=== PATIENT | female | born 1990 | race Caucasian/White ===

== ENCOUNTER 2023-09-20 13:35 | Outpatient (RCR) | payer OTHER, SELFPAY | END 2023-12-29 14:53 | disposition home or self-care (01) | LOC: PT 13:35 | PROVIDERS: PCP Nurse Practitioner Primary Care; Visit Provider Nurse Practitioner Family | DX: M54.16 Radiculopathy, lumbar region (principal) | CPT/HCPCS: 97110; 97112; 97113; 97140; 97162 ==

== ENCOUNTER 2023-09-26 13:08 | Outpatient (OUT) | payer OTHER, SELFPAY ==
--- NOTE | 2023-09-26 14:36 | P.CN_ITS ---
Consult Note: HPI Data of Consult Patient: new to practice Consult date: 09/26/23 Requesting Physician: Chucky Hernandez MD Primary Care Provider: MICHELLE ALVARES APRN-CARSON Consult Narrative Reason for consult: Right lower leg and foot pain Narrative: 33yof who presents for evaluation. Had scoliosis corrective surgery in youth, thoracolumbar fusion in place. Has persistent right lower extremity and foot pain. Lumbar CT shows foraminal stenosis in lower lumbar spine. Has engaged in >6 weeks of provider directed home exercise course, with minimal benefit. Uses gabapentin and lyrica, which has helped keep symptoms at bay. Denies adverse med side effects. cc:: CC: Chucky Hernandez MD Review of Systems ROS Status of ROS 10 or more systems reviewed and unremark able except as noted in history and below Meds Home Medications and Allergies Home Medications Medication Instructions Recorded Confirmed Type benfotiamine 150 mg capsule 150 mg PO DAILY 09/26/23 09/26/23 History bupropion HCl 150 mg tablet,12 hr 150 mg PO DAILY 09/26/23 09/26/23 History sustained-release (Wellbutrin SR) cholecalciferol (vitamin D3) 1,250 50,000 unit PO QWEEK 09/26/23 09/26/23 History mcg (50,000 unit) capsule dextroamphetamine-amphetamine 10 10 mg PO DAILY 09/26/23 09/26/23 History mg tablet (Adderall) dextroamphetamine-amphetamine ER 30 mg PO DAILY 09/26/23 09/26/23 History 30 mg 24hr capsule,extend release (Adderall XR) escitalopram oxalate 20 mg tablet 20 mg PO DAILY 09/26/23 09/26/23 History (Lexapro) gabapentin 600 mg tablet 1,200 mg PO Q8H 09/26/23 09/26/23 History ibuprofen 800 mg tablet 800 mg PO DAILY PRN pain 09/26/23 09/26/23 History mecobalamin (vitamin B12) 1,000 1,000 mcg PO DAILY 09/26/23 09/26/23 History mcg chewable tablet metoprolol tartrate 25 mg tablet 25 mg PO Q12H 09/26/23 09/26/23 History pregabalin 75 mg capsule 75 mg PO Q8H 09/26/23 09/26/23 History Allergies Allergy/AdvReac Type Severity Reaction Status Date / Time No Known Drug Allergies Allergy Verified 09/26/23 14:30 Exam Narrative Exam Narrative: Psych-alert and oriented x 3. Attentive and appropriate, constitutionally normal, displays normal mood and affect per situation. There are no obvious deficits in memory, reasoning, or intellect.? Skin-no obvious rashes, bruising, erythema noted to the patient's area of pain.? Extremities- extremities are warm with minimal edema and palpable pulses. Lumbar-tenderness to palpation noted in the lumbar spine and paraspinal musculature. Pain is not elicited with flexion, extension, and lateral rotation of the lumbar spine. Range of motion is not diminished with these motions. Facet loading maneuvers are negative.? Strength-noted to be unremarkable with the exception of decreased strength rated at 4 out of 5 in right anterior tibialis, posterior tibialis. Sensory-no notable sensory deficits in the bilateral lower extremities to touch or pinprick in all dermatomal distributions with the exception to decreased sensation to the right L5, S1 dermatomal distribution Coordination remains intact.? Gait remains non-antalgic Assessment and Plan Assessment and Plan (1) Lumbar stenosis with neurogenic claudication: (2) Lumbar postlaminectomy syndrome: Plan 33yof who presents for evaluation. Failed conservative measures, as noted. Imaging reviewed, as noted. Given symptoms and imaging, prudent to attempt right L5-S1, S1-2 transforaminal epidural steroid injection under fluoroscopic guidance. She is in agreement. Medications reviewed. Gabapentin and lyrica were refilled. Follow up after procedure.
== END 2023-09-26 13:09 | disposition home or self-care (01) ==
LOC: PM 13:09
PROVIDERS: PCP Nurse Practitioner Primary Care; Visit Provider Anesthesiology
DX: M48.062 Spinal stenosis, lumbar region with neurogenic claudication (principal); M96.1 Postlaminectomy syndrome, not elsewhere classified
CPT/HCPCS: G0463

== ENCOUNTER 2023-10-03 08:46 | Day surgery (SDC) | payer OTHER, SELFPAY ==
--- OUTSIDE RECORDS SUMMARY | 2023-10-03 08:50 | XMS_ITS | CCD ---
Author Name Unknown Address [address] [place] [address] Organization [facility] Care Team Providers Care Business Analyst Intern Name Role Phone BEN DIAZ Attending Unavailable Unavailable Primary Care Provider UnavailAshwini Dotson PA-C Primary Care Provid er Update Needed Unavailable Unavailable Unavailable Unavailable Ashwini Matute Unavailable [phone] MD TERRIE BROWN Referring Unavailabl e MD TERRIE BROWN Admitting Unavailabl e DINA DENNIS Attending Unavailable Juju, Ms. Ashwini Guerrero Primary Care Un available MD TERRIE BROWN Attending Unavailabl e Self, Referral Referring Unavailable Romainfrjenniffer, MsAzael Guerrero Primary Care Un available MD TERRIE BROWN Attending Unavailabl e Juju, Ms. Ashwini Guerrero Primary Care Un available ARIA IZQUIERDO Attending Unavailable ASHWINI MATUTE Referring Unavaila ble FINEFROCK, ASHWINI Lim Primary Care Unavaila ble FINEFROCK, ASWHINI Lim Primary Care Unavaila ble CHITRA BURNETT Attending Unavailable ROMAINFRASHWINI REEVES Primary Care Unavaila ble FINEFRJENNIFFER, ASHWINI Lim Attending Unavaila ble FINEFRASHWINI REEVES Primary Care Unavaila ble CHITRA BURNETT Attending Unavailable MARCO SLADE Referring Unavailable FINEFROCK, ASHWINI L Primary Care Unavaila ble CHITRA BURNETT Referring Unavailable FINEFROCK, ASHWINI L Referring Unavaila ble FINEFROCK, ASHWINI L Primary Care Unavaila ble ARIA IZQUIERDO Attending Unavailable VAZQUEZ ARIA Referring Unavailable JUJU, ASHWINI Lim Primary Care Unavaila ble FINEFROCK, ASHWINI L Primary Care Unavaila ble FINEFROCK, ASHWINI Lim Attending Unavaila ble FINEFRJENNIFFER, ASHWINI Lim Referring Unavaila ble FINEFROCK, ASHWINI L Primary Care Unavaila ble FINEFROCK, ASHWINI L Primary Care Unavaila ble JESSEE HAMILTON Attending Unavailable JESSEE HAMILTON Attending Unavailable JESSEE HAMILTON Referring Unavailable MARCO SLADE Attending Unavailable ASHWINI MATUTE Attending Unavaila ble Finefrock Ashwini QUIROZ Primary Care [facility] TERRIE BROWN Attending Unavailable ASHWINI MATUTE Primary Care Unavai alana NO FAMILY, PHYSICIAN Primary Care Provider SAUL Floers Attending Provider Lorie Townsend Attending Unavailable Lorie Townsend Admitting Unavailable NO FAMILY, PHYSICIAN Primary Care Unavailable Lorie Townsend Unavailable David ROSE, Chucky Landaverde Attending Unavailable Medications Current Medications Medication Drug Class(es) Dates Sig (Normalized) Sig (Original) acetaminophen 325 mg / oxyCODONE hydrochloride 5 mg oral tablet (1 source) Opioid Agonist Start: 12-15-2022 take 1 tablet by mouth twice daily as needed for pain oxyCODONE-acetamin ophen (Percocet) 5-325 mg tablet take 1 tablet by mouth twice a day NEEDED FOR PAIN 0 12/15/2022 Active amphetamine aspartate 2.5 mg / amphetamine sulfate 2.5 mg / dextroamphetamine saccharate 2.5 mg / dextroamphetamine sulfate 2.5 mg oral tablet (20 sources) Central Nervous System Stimulant Start: 07-26-2023 End: 08-25-2023 take 1 tablet by mouth once dextroamphetamine- amphetamine (ADDERALL) 10 mg tablet Indications: Attention deficit hyperactivity disorder (ADHD), unspecified ADHD type Take 1 tablet by mouth every afternoon for 30 days. Do not start before July 26, 2023. 30 tablet 0 07/26/2023 08/25/2023 Active Start: 07-18-2023 End: 05-26-2023 take 1 tablet by mouth once dextroamphetamine-amphetamine (ADDERALL) 10 mg tablet Indications: Attention deficit hyperactivity disorder (ADHD), unspecified ADHD type Take 1 tablet by mouth every afternoon for 30 days. Do not start before July 18, 2023. 30 tablet 0 07/18/2023 05/26/2023 Discontinued Start: 06-25-2023 End: 05-28-2023 take 1 tablet by mouth once dextroamphetamine-amphetamine (ADDERALL) 10 mg tablet Indications: Attention deficit hyperactivity disorder (ADHD), unspecified ADHD type Take 1 tablet by mouth every afternoon for 30 days. Do not start before June 25, 2023. 30 tablet 0 06/25/2023 05/28/2023 Discontinued Start: 06-25-2023 End: 07-25-2023 take 1 tablet by mouth once dextroamphetamine-amphetamine (ADDERALL) 10 mg tablet Indications: Attention deficit hyperactivity disorder (ADHD), unspecified ADHD type Take 1 tablet by mouth every afternoon for 30 days. Do not start before June 25, 2023. 30 tablet 0 06/25/2023 07/25/2023 Active Start: 06-18-2023 End: 05-26-2023 take 1 tablet by mouth once dextroamphetamine-amphetamine (ADDERALL) 10 mg tablet Indications: Attention deficit hyperactivity disorder (ADHD), unspecified ADHD type Take 1 tablet by mouth every afternoon for 30 days. Do not start before June 18, 2023. 30 tablet 0 06/18/2023 05/26/2023 Discontinued Start: 2023 End: 08-17-2023 take 1 tablet by mouth once dextroamphetamine-amphetamine (ADDERALL) 10 mg tablet Indications: Attention deficit hyperactivity disorder (ADHD), unspecified ADHD type Take 1 tablet by mouth every afternoon for 30 days. 30 tablet 0 05/26/2023 06/25/2023 Active Start: 02-17-2023 End: 06-22-2023 take 1 capsule by mouth once daily Adderall XR 30 mg 24 hr capsule Take 1 capsule (30 mg) by mouth once daily. 0 02/17/2023 Active Start: 02-12-2023 amphetamine-de xtroamphetamine (Adderall) 10 mg tablet Start: 09-19-2022 End: 02-10-2023 take 1 capsule by mouth once daily ADDERALL XR 30 mg 24 hr capsule Take 30 mg by mouth once daily. 0 09/19/2022 02/10/2023 Discontinued Comment on above: Take 30 mg by mouth once daily. Take 10 mg by mouth every afternoon. Take 1 capsule by mo uth once daily for 30 days. Take 1 tablet by amrita th every afternoon for 30 days. Take 1 tablet by amrita th every afternoon for 30 days. Do not start before July 18, 2023. Take 1 tablet by amrita th every afternoon for 30 days. Do not start before June 18, 2023. Take 1 tablet by amrita th every afternoon for 30 days. Do not start before June 25, 2023. Take 1 tablet by amrita th every afternoon for 30 days. Do not start before July 26, 2023. aspirin 81 mg chewable tablet (7 sources) Platelet Aggregation Inhibitor, Nonsteroidal Anti-inflammatory Drug take 1 tablet by mouth every twenty-four hours Aspirin 81 MG 1 tablet Orally Once a day Active take 1 capsule by mouth once aleks ly aspirin 325 mg cap Take 1 capsule by mouth once daily. 0 Active Comment on above: Take 1 capsule by [facility] once daily. atomoxetine 100 mg oral capsule (9 sources) Norepinephrine Reuptake Inhibitor Start: 07-23-20 End: 09-27-19 atomoxetine (Strattera) 100 mg capsule Strattera 100 MG Oral Capsule Quantity: 30 Refills: 0 Start : 23-Jul-2013 Active 0 07/23/2013 Active Comment on above: TAKE 1 CAPSULE DAILY IN THE MORNING baclofen 20 mg oral tablet (1 source) gamma-Aminobutyric Acid-ergic Agonist Start: 10-18-19 take 1 tablet by mouth three times daily for muscle spasms baclofen (Lioresal) 20 mg tablet take 1 tablet by mouth three times a day if needed for SPASM(S) 0 10/18/2022 Active Benfotiamine (1 source) Benfotiamine Act josh 24 hr buPROPion hydrochloride 150 mg extended release oral tablet (20 sources) Aminoketone Start: 02-23-20 End: 07-16-20 23 take 1 tablet by mouth once daily buPROPion XL (WELLBUTRIN XL) 150 mg 24 hr tablet Take 1 tablet by mouth once daily. 30 tablet 2 06/16/2023 07/16/2023 Active take 1 tablet by amrita th every twenty-four hours Wellbutrin SR 150 MG 1 tablet in the morning Orally Once a day Active Comment on above: Take 1 tablet by amrita th once daily. take 1 tablet by amrita th once daily cyclobenzaprine hydrochloride 10 mg oral tablet (7 sources) Muscle Relaxant Start: 02-26-2013 cyclobenzaprine (Flexeril) 10 mg tablet Cyclobenzaprine HCl - 10 MG Oral Tablet Quantity: 90 Refills: 0 Start : 26-Feb-2013 Active 0 02/26/2013 Active Start: 02-26-2013 Cyclobenzaprin e HCl - 10 MG Oral Tablet Quantity: 90 Refills: 0 Ordered: 08-May-2013 DO Start : 26-Feb-2013 Active Dodex 1,000 mcg/mL injection (1 source) Start: 03-01-2023 Dodex 1,000 mc g/mL injection inject 1 milliliter ( 1000 MCG ) intramuscularly Every Month 0 03/01/2023 Active escitalopram 20 mg oral tablet (20 sources) Serotonin Reuptake Inhibitor Start: 05-26-2023 End: 11-22-2023 take 1 tablet by mouth once daily escitalopram oxalate (LEXAPRO) 20 mg tablet Take 1 tablet by mouth once daily. 90 tablet 1 05/26/2023 11/22/2023 Active Start: 02-22-2023 End: 05-26-2023 take 1 tablet by mouth once daily escitalopram (Lexapro) 10 mg tablet Take 1 tablet (10 mg) by mouth once daily. 0 02/22/2023 Active Start: 01-11-2023 End: 02-22-2023 escitalopram oxalate (LEXAPR O) 10 mg tablet 0.5 tab daily for 1 week then 1 tab daily 30 tablet 1 01/11/2023 02/22/2023 Discontinued Start: 12-03-2014 End: 09-27-2022 escitalopram oxalate (LEXAPR O) 10 mg tablet TAKE 1 TABLET DAILY 90 tablet 2 09/15/2015 Active Comment on above: Take 1 tablet by amrita th once daily. TAKE 1 TABLET DAILY 0.5 tab daily for 1 week then 1 tab daily gabapentin 600 mg oral tablet (20 sources) Anti-epileptic Agent Start: 01-11-2023 End: 07-16-2023 take 2 tablets by mouth three times daily gabapentin (Neurontin) 600 mg tablet Take 2 tablets (1,200 mg) by mouth 3 times a day. 0 02/21/2023 Active Start: 12-11-2012 gabapentin (NE URONTIN) 800 mg tablet TAKE 1 TABLET THREE TIMES A DAY 270 tablet 2 09/29/2014 Active Start: 12-11-2012 Gabapentin 800 MG Oral Tablet Quantity: 90 Refills: 0 Ordered: 11-Dec-2012 DO Start : 11-Dec-2012 Active [facility] Gabapentin 600 MG 1 tablet Orally Once a day Active Comment on above: TAKE 1 TABLET THREE TIMES A DAY Take 2 tablets by [facility] three times daily for 30 days. Take 2 tablets by [facility] three times a day for 30 days. ibuprofen 800 mg oral tablet (1 source) Nonsteroidal Anti-inflammatory Drug take 1 tablet by mouth every eight hours at mealtime as needed Ibuprofen 800 MG 1 tablet with food or milk as needed Orally every 8 hrs Active 1 ml medroxyPROGESTERone acetate 150 mg/ml injection (7 sources) Progestin Start : 09-21 medroxyPROGESTERone 150 mg/mL injection MedroxyPROGESTERone Acetate 150 MG/ML Intramuscular Suspension Quantity: 1 Refills: 0 Start : 21-Sep-2012 Active 0 09/21/2012 Active Start: 09-21-2012 MedroxyPROGEST ERone Acetate 150 MG/ML Intramuscular Suspension Quantity: 1 Refills: 0 Ordered: 11-Mar-2013 DO Start : 21-Sep-2012 Active methylPREDNISolone (1 source) Corticosteroid Start: 12-27-2022 methylPREDNISolone (Medrol Dospak) 4 mg tablets use as directed FOLLOW DIRECTIONS ON BACK OF FOIL PACK 0 12/27/2022 Active miSOPROStol 0.2 mg oral tablet (4 sources) Prostaglandin E1 Analog Start: 02-25-2023 miSOPROStoL (Cytotec) 200 mcg tablet take 1 tablet 2 days prior to appointment then 1 tablet 8 to 10 h... (REFER TO PRESCRIPTION NOTES). 0 02/25/2023 Active Start: 02-03-2023 End: 02-04-2023 miSOPROStol (CYTOTEC) 200 mc g tablet 1 tablet as directed. Take by mouth 2 days prior to appt, and the second pill 8-10 hours prior to [employer]UR[employer]ER appt for cervical dilation. 2 tablet 0 02/03/2023 02/04/2023 Discontinued Comment on above: 1 tablet as directed . Take by mouth 2 days prior to appt, and the second pill 8-10 hours prior to ASSURANCE OFFICER appt for cervical dilation. 1 tablet as directed for 2 doses. Take by mouth 2 days prior to appt, and the second pill 8-10 hours prior to ASSURANCE OFFICER appt for cervical dilation. perflutren lipid microspheres 1.3 mL in NaCl (PF) 0.9% 10 mL injection (DEFINITY) (20 sources) Start: 3 End: 4 perflutren lipid microspheres 1.3 mL in NaCl (PF) 0.9% 10 mL injection (DEFINITY) pregabalin 50 mg oral capsule (20 sources) Start: 3 End: 3 take 1 capsule by mouth three times daily pregabalin (LYRICA) 50 mg capsule Indications: Juvenile idiopathic scoliosis of thoracolumbar region , Neuropathy Take 1 capsule by mouth three times daily for 90 days. 90 capsule 2 05/30/2023 08/28/2023 Active Start: 11-10-2022 take 1 capsule by mo uth once daily pregabalin (LYRICA) 50 mg capsule Take 1 capsule by mouth once daily. 0 11/10/2022 Active take 1 capsule by mo uth every twelve hours Lyrica 50 MG 1 capsule Orally Twice a day Active Comment on above: Take 1 capsule by mo ut[facility] once daily. Take 1 capsule by mo ut[facility] three times daily for 30 days. Take 1 capsule by mo ut[facility] three times daily for 90 days. Do not start before April 30, 2023. Take 1 capsule by mo uth three times daily for 90 days. probiotic (1 source) probiotic Active 125 ml sodium chloride 9 mg/ml prefilled syringe (20 sources) Start: 09-27-2022 End: 12-27-2023 sodium chloride 0.9 % (flush) 10 mL (BD POSIFLUSH) tiZANidine 4 mg oral tablet (7 sources) Central alpha-2 Adrenergic Agonist Start: 05-15-2013 tiZANidine (Zanaflex) 4 mg tablet tiZANidine HCl - 4 MG Oral Tablet Quantity: 90 Refills: 0 Start : 15-May-2013 Active 0 05/15/2013 Active Start: 05-15-2013 tiZANidine HCl - 4 MG Oral Tablet Quantity: 90 Refills: 0 Ordered: 10-Sep-2013 DO Start : 15-May-2013 Active traMADol hydrochloride 50 mg oral tablet (1 source) Opioid Agonist Start: 01-10-2023 take 1 tablet by mouth twice daily as needed for pain traMADol (Ultram) 50 mg tablet take 1 tablet by mouth twice a day NEEDED FOR PAIN 0 01/10/2023 Active vitamin B12 (20 sources) Vitamin B12 Vitamin B12 Active inject 1000 ug by in tramuscular injection every month cyanocobalamin 1,000 mcg/mL Inject 1,000 mcg intramuscularly once every month. 0 Active Comment on above: Inject 1,000 mcg int ramuscularly once every month. Vitamin D (1 source) Vitamin D Active Completed/Discontinued Medications Medication Drug Class(es) Dates Sig (Normalized) Sig (Original) apixaban 5 mg oral tablet (9 sources) Factor Xa Inhibitor Start: 08-23-2022 End: 09-27-2022 take 1 tablet by mouth twice daily apixaban (ELIQUIS) 5 mg tab(s) Take 1 tablet by mouth twice daily. 60 tablet 0 08/23/2022 09/27/2022 Discontinued Start: 07-24-2022 take 2 tablets by [facility] twice daily, then take 1 tablet by mouth twice daily apixaban (ELIQUIS DVT-PE TREAT 30D START) 5 mg (74 tabs) Take 2 tablets (10 mg) by mouth twice daily for 7 days. Then take 1 tablet (5 mg) by mouth twice daily for 23 days 74 tablet 0 07/24/2022 Active Comment on above: Take 2 tablets (10 m g) by mouth twice daily for 7 days. Then take 1 tablet (5 mg) by mouth twice daily for 23 days Take 1 tablet by [facility] twice daily. ergocalciferol 1.25 mg oral capsule (20 sources) Provitamin D2 Compound Start: 02-23-20 End: 06-15-20 take 1 capsule by mouth every week ergocalciferol 50,000 unit capsule (VITAMIN D2, DRISDOL) Take 1 capsule by mouth one time a week. 4 capsule 7 06/16/2023 Active Start: 02-24-2015 End: 09-27-2022 VITAMIN D 50,000 unit capsul e TAKE 1 CAPSULE ONCE A WEEK 12 capsule 2 02/24/2015 09/27/2022 Discontinued Start: 09-26-2013 take 1 capsule by mouth once V itamin D (Ergocalciferol) 1.25 MG (78451 UT) Oral Capsule Quantity: 12 Refills: 0 Ordered: 26-Sep-2013 DO Start : 26-Sep-2013 Active take 1 capsule by [facility] every week ergocalciferol (Vitamin D-2) 1.25 MG (72802 UT) capsule Take 1 capsule (1,250 mcg) by mouth 1 (one) time per week. 0 Active Comment on above: TAKE 1 CAPSULE ONCE A WEEK Take 1 capsule by [facility] one time a week. metoprolol tartrate 25 mg oral tablet (20 sources) beta-Adrenergic Sherry Start: 07-24-2022 End: 06-13-2023 take 1 tablet by mouth twice daily metoprolol tartrate, short acting, (LOPRESSOR) 25 mg tablet take 1 tablet by mouth twice a day 60 tablet 2 06/06/2023 Active take 1 capsule by mouth once aleks ly Metoprolol Succinate 25 MG 1 capsule Orally Once a day Active Comment on above: Take 1 tablet by [facility] twice daily. take 1 tablet by amrita twice a day Problems Active Problems Problem Classification Problem Date Documented Date Episodic/Chronic Abdominal pain (8 sources) Pain in female pelvis; Translations: [Unspecified symptom associated with female genital organs] Onset: 06-15-2023 06-15-2023 Episodic Alcohol-related disorders (2 sources) Alcohol abuse; Translations: [Alcohol abuse, uncomplicated] Onset: 05-26-2023 05-26-2023 Chronic Anxiety disorders (6 sources) Anxiety; Translations: [Anxiety state, unspecified] Chronic Attention-deficit, conduct, and disruptive behavior disorders (11 sources) Attention deficit hyperactivity disorder; Translations: [Attention-deficit hyperactivity disorder, unspecified type] Chronic Cardiac dysrhythmias (20 sources) Unspecified atrial fibrillation; Translations: [Paroxysmal atrial fibrillation] Onset: 07-24-2022 Chronic Immunizations and screening for infectious disease (1 source) Patient encounter status; Translations: [Encounter for immunization] 05-26-2023 Episodic Mood disorders (2 sources) Recurrent major depressive episodes, mild ; Translations: [Major depressive disorder, recurrent, mild] Chronic Nutritional deficiencies (1 source) Vitamin D deficiency; Translations: [Vitamin D deficiency, unspecified] Chronic Nutritional deficiencies (2 sources) Vitamin B deficiency; Translations: [Vitamin B deficiency, unspecified] Episodic Other bone disease and musculoskeletal deformities (9 sources) Juvenile idiopathic scoliosis, thoracolumbar region; Translations: [Scoliosis [and kyphoscoliosis], idiopathic] Onset: 12-22-2022 Chronic Other connective tissue disease (3 sources) H/O: arthrodesis; Translations: [Arthrodesis status] Episodic Other connective tissue disease (6 sources) H/O: musculoskeletal disease; Translations: [Personal history of other musculoskeletal disorders] Episodic Comment on above: Had surgery for this in 2010; Other nervous system disorders (8 sources) Neuropathy; Translations: [Polyneuropathy, unspecified] Chronic Other nervous system disorders (1 source) Other chronic pain; Translations: [Chronic bilateral low back pain with right-sided sciatica] Onset: 12-22-2022 Chronic Other nervous system disorders (2 sources) Polyneuropathy, unspecified; Translations: [Polyneuropathy, unspecified] Onset: 07-14-2023 Chronic Other nervous system disorders (1 source) Polyneuropathy; Translations: [Other specified polyneuropathies] Chronic Other nervous system disorders (1 source) Other specified polyneuropathies Chronic Other nervous system disorders (1 source) Paresthesia of foot ; Translations: [Paresthesia of skin] Episodic Other nervous system disorders (1 source) Paresthesia; Translations: [Paresthesia of skin] Episodic Other nervous system disorders (1 source) Paresthesia of skin Episodic Screening and history of mental health and substance abuse codes (6 sources) H/O: psychiatric disorder; Translations: [Personal history of other mental disorders] Episodic Spondylosis; intervertebral disc disorders; other back problems (2 sources) Spondylosis without myelopathy or radiculopathy, lumbar region; Translations: [Spondylosis without myelopathy or radiculopathy, lumbosacral region] Onset: 02-10-2023 Chronic Spondylosis; intervertebral disc disorders; other back problems (20 sources) Chronic low back pain; Translations: [Lumbago with sciatica, right side] Onset: 12-22-2022 Episodic Unclassified (2 sources) Low back pain, unspecified; Translations: [Low back pain, unspecified] Onset: 02-10-2023 Unclassified (1 source) Insertion Of IUD Onset: 03-03-2023 Unclassified (1 source) Low back pain, unspecified; Translations: [Low back pain, unspecified] Onset: 09-12-2023 Past or Other Problems Problem Classification Problem Date Documented Date Episodic/Chronic Administrative/social admission (1 source) Persons encountering health services in other specified circumstances; Translations: [Encounter to establish care] Onset: 02-15-2023 Episodic Cardiac dysrhythmias (5 sources) Palpitations; Translations: [Palpitations] Onset: 07-24-2022 Episodic Contraceptive and procreative management (2 sources) Contraception status; Translations: [Encounter for other general counseling and advice on contraception] Onset: 02-03-2023 Episodic Other connective tissue disease (2 sources) Arthrodesis status; Translations: [Arthrodesis status] Onset: 12-22-2022 Episodic Unclassified (1 source) Low back pain, unspecified; Translations: [Low back pain, unspecified] Onset: 03-14-2023 Results Test Name Value Interpretation Reference Range Facility XR lumbar spine 6V w bending on 09-12-2023 XR lumbar spine 6V w bending [facility] [place] [address] XRay Report Signed Patient: Hue Titus MR#: [id number] : 1990 Acct:[id number] Age/Sex: 33 / F ADM Date: 09/12/23 Loc: XD Room: Type: [facility] Attending Dr: Lorie HUGHES Copies to: SAUL Cortez Ordering Provider: SAUL Cortez Date of Service: 09/12/23 XR/XR lumbar spine 6V w bending: M54.50 LUMBAR SPINE WITH FLEXION, EXTENSION AND BENDING VIEWS - 6 views: CLINICAL HISTORY: Burning at the right foot. Previous fusion. COMPARISON: CT 03/14/2023 Standing AP neutral, right and left bending and lateral views in neutral, flexion and extension were obtained. There is osteopenia. There is thoracolumbar levoscoliotic curvature. There is fusion hardware that extends from the thoracic spine down to the L4 level. The visualized hardware appears intact and unchanged from the prior. There are no definite developing compression fractures. There is no significant displacement or instability. There is multilevel disc space narrowing. There is lower lumbar facet disease. The SI joints are intact. There is a T-shaped IUD. XR/XR lumbar spine 6V w bending IMPRESSION: SCOLIOSIS WITH POSTOPERATIVE AND DEGENERATIVE CHANGES. Impression dictated by: Amberly Livingston M.D.09/12/2023 5:18 PM Dictation Location: [facility] Transcribed By: [facility] 09/12/231717 Dictated By: Amberly Livingston MD 09/12/231714 Signed By: 09/12/231717 [facility] CNOVon 05-27-2023 CNOV Office Visit (CARDAV ) HUE TITUS ([id number]) 1990 [facility] Date Time Provider Department 05/27/23 1:30 PM JESSEE HAMILTON CARDKAROLINA During your visit today, we recorded the following information about you: Pulse Blood pressure Weight Height 97/minute 124/76 65.8 kg 1.702 m Jessee Hamilton MD 05/28/2023 8:48 AM Signed PRIMARY CARE PHYSICIAN: Ashwini Matute [address] [place] [address] REFERRING PHYSICIAN: No referring provider defined for this encounter. CHIEF COMPLAINT: Abnormal Holter HISTORY OF PRESENT ILLNESS: From my office notes on September 27, 2022 Probably paroxysmal atrial fibrillation, with spontaneous conversion into normal sinus rhythm. [id number] based on the information we have so far. Will obtain a 30-day event monitor and obtain an echocardiogram. Slightly low potassium at the time of her symptoms: Patient encouraged to eat food high on potassium. Since then No symptoms during monitor but she thinks she had an 'event' after she returned it. Denies chest pain, shortness of breath, orthopnea, cough, edema, paroxysmal nocturnal dyspnea, lightheadedness or syncope. I have personally interviewed, confirmed and edited the above information if obtained by others. PAST MEDICAL HISTORY Diagnosis Date ADHD (attention deficit hyperactivity disorder) Ovarian cyst PAF (paroxysmal atrial fibrillation) (HCC) 07/2022 follows with cardiology Scoliosis SVT, lower extremity (HCC) 2019 ASA only no anticoagulants PAST SURGICAL HISTORY Procedure Laterality Date OTHER SURGICAL HISTORY (PLEASE SPECIFY) HX 2005,2006 back surgery x2 for scoliosis with marilu placement MEDICATIONS: aspirin 325 mg capTake 1 capsule by mouth once daily.Disp: Rfl: dextroamphetamine-amp hetamine (ADDERALL) 10 mg tabletTake 1 tablet by mouth every afternoon for 30 days.Disp: 30 tabletRfl: 0 [START ON 07/26/2023] dextroamphetamine-amp hetamine (ADDERALL) 10 mg tabletTake 1 tablet by mouth every afternoon for 30 days. Do not start before July 26, 2023.Disp: 30 tabletRfl: 0 escitalopram oxalate (LEXAPRO) 20 mg tabletTake 1 tablet by mouth once daily.Disp: 90 tabletRfl: 1 amphetamine-dextroamp hetamine XR (ADDERALL XR) 30 mg capsuleTake 1 capsule by mouth once daily for 30 days.Disp: 30 capsuleRfl: 0 gabapentin (NEURONTIN) 600 mg tabletTake 2 tablets by mouth three times daily for 30 days.Disp: 180 tabletRfl: 0 buPROPion XL (WELLBUTRIN XL) 150 mg 24 hr tablettake 1 tablet by mouth once dailyDisp: 30 tabletRfl: 2 pregabalin (LYRICA) 50 mg capsuleTake 1 capsule by mouth three times daily for 90 days. Do not start before April 30, 2023.Disp: 90 capsuleRfl: 2 metoprolol tartrate, short acting, (LOPRESSOR) 25 mg tabletTake 1 tablet by mouth twice daily.Disp: 60 tabletRfl: 2 ergocalciferol 50,000 unit capsule (VITAMIN D2, DRISDOL)Take 1 capsule by mouth one time a week.Disp: 4 capsuleRfl: 7 cyanocobalamin 1,000 mcg/mLInject 1,000 mcg intramuscularly once every month.Disp: Rfl: [START ON 06/25/2023] dextroamphetamine-amp hetamine (ADDERALL) 10 mg tabletTake 1 tablet by mouth every afternoon for 30 days. Do not start before June 25, 2023.Disp: 30 tabletRfl: 0 REVIEW OF SYSTEMS: ROS: As above, remainder of 14 point review of systems elicited and otherwise unremarkable. PHYSICAL EXAMINATION: Blood Pressure 124/76 Pulse 97 Height 170.2 cm (5' 7 ) Weight 65.8 kg (145 lb) Last Menstrual Period 02/13/2023 (Approximate) Body Mass Index 22.71 kg/m? General: Well appearing, in no acute distress. Skin: No clubbing, no cyanosis. Neck: No jugular venous distention, no carotid bruits; carotids have a normal upstroke. Lungs: Clear to auscultation bilaterally, no wheezing or rhonchi. Heart: Regular rhythm, PMI not displaced, no RV heave. Normal S1 and S2. No S3, no S4, murmurs, gallop or rub. Extremities: No peripheral edema. Normal pulses bilaterally. Neuro: Oriented to person, place and time, alert, cooperative. CARDIOVASCULAR MEDICINE TESTING: Pertinent Diagnostics/Labs/Data reviewed (ECGs and echo listed personally reviewed today or prior). WBC (k/uL) Date Value 05/26/2023 7.38 02/15/2023 7.37 07/23/2022 7.61 Hemoglobin (g/dL) Date Value 05/26/2023 14.6 02/15/2023 12.7 07/23/2022 13.0 Hematocrit (%) Date Value 05/26/2023 44.3 02/15/2023 38.1 07/23/2022 38.8 Platelet Count (k/uL) Date Value 05/26/2023 385 02/15/2023 493 07/23/2022 347 Sodium (mmol/L) Date Value 05/26/2023 139 02/15/2023 139 12/22/2022 139 Potassium (mmol/L) Date Value 05/26/2023 4.3 02/15/2023 4.4 12/22/2022 4.4 CO2 (mmol/L) Date Value 05/26/2023 28 02/15/2023 25 12/22/2022 28 BUN (mg/dL) Date Value 05/26/2023 14 02/15/2023 16 12/22/2022 13 Creatinine (mg/dL) Date Va (more content not included)... Normal [facility] CBC W Auto Differential pane l (Bld)on 05-26-2023 Basophils (Bld) [#/Vol] 0.05 10*3/uL <0.11 k/uL [facility] Basophils/100 WBC (Bld) 0.7 % [facility] Differential cell count method Nom (Bld) Auto [facility] Eosinophils (Bld) [#/Vol] 0.14 10*3/uL <0.46 k/uL [facility] Eosinophils/100 WBC (Bld) 1.9 % [facility] Erythrocyte distribution width (RBC) [Ratio] 13.4 % 11.5 - 15.0 % [facility] Hematocrit (Bld) [Volume fraction] 44.3 % 36.0 - 46.0 % [facility] Hemoglobin (Bld) [Mass/Vol] 14.6 g/dL 11.5 - 15.5 g/dL [facility] Immature granulocytes (Bld) [#/Vol] 0.07 10*3/uL <0.10 k/uL [facility] Immature granulocytes/100 WBC (Bld) 0.9 % [facility] Lymphocytes (Bld) [#/Vol] 1.92 10*3/uL 1.00 - 4.00 k/uL [facility] Lymphocytes/100 WBC (Bld) 26.0 % [facility] MCH (RBC) [Entitic mass] 31.7 pg 26.0 - 34.0 pg [facility] MCHC (RBC) [Mass/Vol] 33.0 g/dL 30.5 - 36.0 g/dL [facility] MCV (RBC) [Entitic vol] 96.3 fL 80.0 - 100.0 fL [facility] Monocytes (Bld) [#/Vol] 0.63 10*3/uL <0.87 k/uL [facility] Monocytes/100 WBC (Bld) 8.5 % [facility] Neutrophils (Bld) [#/Vol] 4.57 10*3/uL 1.45 - 7.50 k/uL [facility] Neutrophils/100 WBC (Bld) 62.0 % [facility] Nucleated RBC (Bld) [#/Vol] <0.01 k/uL [facility] Nucleated RBC/100 WBC (Bld) [Ratio] 0.0 /100 WBC [facility] Platelet mean volume (Bld) [Entitic vol] 9.1 fL 9.0 - 12.7 fL [facility] Platelets (Bld) [#/Vol] 385 10*3/uL 150 - 400 k/uL [facility] RBC (Bld) [#/Vol] 4.60 10*6/uL 3.90 - 5.2 0 m/uL [facility] WBC (Bld) [#/Vol] 7.38 10*3/uL 3.70 - 11. 00 k/uL [facility] Basophils (Bld) [#/Vol] 0.05 10*3/uL Normal <0.11 [facility] Comment on above: Order Comment: Speci men Type: BLOOD SPECIMEN [facility] Address: [address] [place] [address] Performed By: #### 2 4362-6 #### [facility] CLIA [id number] [address] [place] [address] [place] Basophils/100 WBC (Bld) 0.7 % Normal [facility] Comment on above: Order Comment: Speci men Type: BLOOD SPECIMEN [facility] Address: [address] [place] [address] Performed By: #### 2 4362-6 #### [facility] CLIA [id number] [address] [place] [address] [place] Differential cell count method Nom (Bld) Auto Normal [facility] Comment on above: Order Comment: Speci men Type: BLOOD SPECIMEN [facility] Address: [address] Performed By: #### 2 4362-6 #### [facility] CLIA [id number] [address] [place] [address] [place] Eosinophils (Bld) [#/Vol] 0.14 10*3/uL Normal <0.46 [facility] Comment on above: Order Comment: Speci men Type: BLOOD SPECIMEN [facility] Address: [address] Performed By: #### 2 4362-6 #### [facility] CLIA [id number] [address] [place] [address] [place] Eosinophils/100 WBC (Bld) 1.9 % Normal [facility] Comment on above: Order Comment: Speci men Type: BLOOD SPECIMEN [facility] Address: [address] [place], [place] [address] Performed By: #### 2 4362-6 #### [facility] CLIA [id number] [address] [place] [address] [place] Erythrocyte distribution width (RBC) [Ratio] 13.4 % Normal 11.5-15.0 [facility] Comment on above: Order Comment: Speci men Type: BLOOD SPECIMEN [facility] Address: [address] [place], [place] [address] Performed By: #### 2 4362-6 #### [facility] CLIA [id number] [address] [place] [address] [place] Hematocrit (Bld) [Volume fraction] 44.3 % Normal 36.0-46.0 [facility] Comment on above: Order Comment: Speci men Type: BLOOD SPECIMEN [facility] Address: [address] [place], [place] [address] Performed By: #### 2 4362-6 #### [facility] CLIA [id number] [address] [place] [address] [place] Hemoglobin (Bld) [Mass/Vol] 14.6 g/dL Normal 11.5-15.5 [facility] Comment on above: Order Comment: Speci men Type: BLOOD SPECIMEN [facility] Address: [address] [place], [place] [address] Performed By: #### 2 4362-6 #### [facility] CLIA [id number] [address] [id number] [address] [place] Immature granulocytes (Bld) [#/Vol] 0.07 10*3/uL Normal <0.10 [facility] Comment on above: Order Comment: Speci men Type: BLOOD SPECIMEN [facility] Address: [address] [place], [place] [address] Performed By: #### 2 4362-6 #### [facility] CLIA [id number] [address] [place] [address] [place] Immature granulocytes/100 WBC (Bld) 0.9 % Normal [facility] Comment on above: Order Comment: Speci men Type: BLOOD SPECIMEN [facility] Address: [address] [place], [place] [address] Performed By: #### 2 4362-6 #### [facility] CLIA [id number] [address] [place] [address] [place] Lymphocytes (Bld) [#/Vol] 1.92 10*3/uL Normal 1.00-4.00 [facility] Comment on above: Order Comment: Speci men Type: BLOOD SPECIMEN [facility] Address: [address] [place], [place] [address] Performed By: #### 2 4362-6 #### [facility] CLIA [id number] [address] [place] Lymphocytes/100 WBC (Bld) 26.0 % Normal [facility] Comment on above: Order Comment: Speci men Type: BLOOD SPECIMEN [facility] Address: [address] [place], [place] [address] Performed By: #### 2 4362-6 #### [facility] CLIA [id number] [address] [place] [address] [place] MCH (RBC) [Entitic mass] 31.7 pg Normal 26.0-34.0 [facility] Comment on above: Order Comment: Speci men Type: BLOOD SPECIMEN [facility] Address: [address] Performed By: #### 2 4362-6 #### [facility] CLIA [id number] [address] [place] [address] [place] MCHC (RBC) [Mass/Vol] 33.0 g/dL Normal 30.5-36.0 [facility] Comment on above: Order Comment: Speci men Type: BLOOD SPECIMEN [facility] Address: [address] Performed By: #### 2 4362-6 #### [facility] CLIA [id number] [address] [place] [address] [place] MCV (RBC) [Entitic vol] 96.3 fL Normal 80.0-100.0 [facility] Comment on above: Order Comment: Speci men Type: BLOOD SPECIMEN [facility] Address: [address] Performed By: #### 2 4362-6 #### [facility] CLIA [id number] [address] [place] [address] [place] Monocytes (Bld) [#/Vol] 0.63 10*3/uL Normal <0.87 [facility] Comment on above: Order Comment: Speci men Type: BLOOD SPECIMEN [facility] Address: [address] [place] [address] Performed By: #### 2 4362-6 #### [facility] CLIA [id number] [address] [place] [address] [place] Monocytes/100 WBC (Bld) 8.5 % Normal [facility] Comment on above: Order Comment: Speci men Type: BLOOD SPECIMEN [facility] Address: [address] Performed By: #### 2 4362-6 #### [facility] CLIA [id number] [address] [place] [address] [place] Neutrophils (Bld) [#/Vol] 4.57 10*3/uL Normal 1.45-7.50 [facility] Comment on above: Order Comment: Speci men Type: BLOOD SPECIMEN [facility] Address: [address] [place] [address] Performed By: #### 2 4362-6 #### [facility] CLIA [id number] [address] [place] [address] [place] Neutrophils/100 WBC (Bld) 62.0 % Normal [facility] Comment on above: Order Comment: Speci men Type: BLOOD SPECIMEN [facility] Address: [address] [place] [address] Performed By: #### 2 4362-6 #### [facility] CLIA [id number] [address] [place] [address] [place] Nucleated RBC (Bld) [#/Vol] 10*3/uL Normal <0.01 [facility] Comment on above: Order Comment: Speci men Type: BLOOD SPECIMEN [facility] Address: [address] [place], [place] [address] Performed By: #### 2 4362-6 #### [facility] CLIA [id number] [address] [place] [address] [place] Nucleated RBC/100 WBC (Bld) [Ratio] 0.0 /100 WBC Normal [facility] Comment on above: Order Comment: Speci men Type: BLOOD SPECIMEN [facility] Address: [address] [place], [place] [address] Performed By: #### 2 4362-6 #### [facility] CLIA [id number] [address] [place] [address] [place] Platelet mean volume (Bld) [Entitic vol] 9.1 fL Normal 9.0-12.7 [facility] Comment on above: Order Comment: Speci men Type: BLOOD SPECIMEN [facility] Address: [address] [place] [address] Performed By: #### 2 4362-6 #### [facility] CLIA [id number] [address] [place] [address] [place] Platelets (Bld) [#/Vol] 385 10*3/uL Normal 150-400 [facility] Comment on above: Order Comment: Speci men Type: BLOOD SPECIMEN [facility] Address: [address] [place] [address] Performed By: #### 2 4362-6 #### [facility] CLIA [id number] [address] [place] [address] [place] RBC (Bld) [#/Vol] 4.60 10*6/uL Normal 3.90-5.20 [facility] Comment on above: Order Comment: Speci men Type: BLOOD SPECIMEN [facility] Address: [address] [place] [address] Performed By: #### 2 4362-6 #### [facility] CLIA [id number] [address] [place] [address] [facility] [place] WBC (Bld) [#/Vol] 7.38 10*3/uL Normal 3.70-11.00 [facility] Comment on above: Order Comment: Speci men Type: BLOOD SPECIMEN [facility] Address: [address] [place] [address] Performed By: #### 2 4362-6 #### [facility] CLIA [id number] [address] [place] [address] [facility] [place] CNOVon 05-26-2023 CNOV [place] [place] HUE TITUS ([id number]) 1990 F [facility] Date Time Provider Department 05/26/23 1:00 PM ASHWINI MATUTE [facility] During your visit today, we recorded the following information about you: Temperature Pulse Blood pressure Weight 98.3 degrees 71/minute 122/87 64.4 kg Height 1.702 m [place] 05/26/2023 1:23 PM Signed [facility] FACTS Please visit our lab at least 3-5 days before your scheduled appointment to have your lab work drawn, if lab work is ordered. This will allow us the ability to review your lab work results with you during your scheduled visit. [facility]: Lab is open Tuesday - Tuesday from 6:30am to 5pm and open 8am -12pm on Saturdays. [facility]: Tuesday- 7:30am to 5:30pm. Fridays 7:30-5:00pm and Tuesday 8:00am to 12:00 pm. Routine Lab Orders 60 days after they are entered. If your lab orders , you may be required to wait in the lab while they are reinstated FUTURE ORDERS are lab tests to be completed on the ?EXPECTED? date. These orders 60 days after the expected date. STANDING ORDERS are recurring orders with an expiration date. The interval will indicate how often the test should be completed. [facility]STING LAB means nothing to eat or drink (except water) 10-12 hours before your blood is drawn. CT/MRI/IVP If you have one of these radiology exams ordered along with blood work, please complete the blood work at least one day prior to the scheduled exam. My Chart Schedule My Appointment enables you to view your established primary care provider's open schedule and book an appointment online in real-time. This feature is available in internal medicine, family medicine, or pediatrics at any of our [facility] locations and main campus. Ashwini Matute PA-C 05/26/2023 3:00 PM Signed This note was created using [employer]. Subjective Hue Titus is a 33 year old female. 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 She complains of feeling more down and depressed the past few weeks. She has had crying episodes and has started drinking alcohol daily to cope with her depression and chronic pain. She is having a difficult time getting over the deaths of her cousin and grandmother last year. She says there is also a lot of stress at home and she is not getting along with her mom and brother. 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 She has constant back and foot pain despite her current meds. She started seeing an ortho surgeon at for her back and is awaiting an appt to discuss next steps in her treatment. As for her a fib, she had reoccurrences in December and in March, both of which lasted a couple of minutes. She has not been back to cardiology recently due to insurance changes. Past Medical History: PAST MEDICAL HISTORY Diagnosis Date ADHD (attention deficit hyperactivity disorder) Ovarian cyst PAF (paroxysmal atrial fibrillation) ([facility]) 07/2022 follows with cardiology Scoliosis SVT, lower extremity ([facility]) 2018 ASA only no anticoagulants Past Surgical History: PAST SURGICAL HISTORY Procedure Laterality Date OTHER SURGICAL HISTORY (PLEASE SPECIFY) HX 2005,2006 back surgery x2 for scoliosis with marilu placement Family History: FAMILY HISTORY Problem Relation Age of Onset other (osteoarthritis [Other]) Mother Scoliosis Father Scoliosis Paternal Aunt Social History: Social History Tobacco Use Smoking status: Never Smokeless tobacco: Never Tobacco comments: vapes Substance Use Topics Alcohol use: No Drug use: No Current Medications: aspirin 325 mg cap, Take 1 capsule by mouth once daily., Disp: , Rfl: amphetamine-dextroamp hetamine XR (ADDERALL XR) 30 mg capsule, Take 1 capsule by mouth once daily for 30 days., Disp: 30 capsule, Rfl: 0 gabapentin (NEURONTIN) 600 mg tablet, Take 2 tablets by mouth three times daily for 30 days., Disp: 180 tablet, Rfl: 0 buPROPion XL (WELLBUTRIN XL) 150 mg 24 hr tablet, take 1 tablet by mouth once daily, Disp: 30 tablet, Rfl: 2 pregabalin (LYRICA) 50 mg capsule, Take 1 capsule by mouth three times daily for 90 days. Do not start before April 30, 2023., Disp: 90 capsule, Rfl: 2 metoprolol tartrate, short acting, (LOPRESSOR) 25 mg tablet, Take 1 tablet by mouth twice daily., Disp: 60 tablet, Rfl: 2 ergocalciferol 50,000 unit capsule (VITAMIN D2, DRISDOL), Take 1 capsule by mouth one time a week., Disp: 4 capsule, Rfl: 7 cyanocobalamin 1,000 mcg/mL, Inject 1,000 mcg intramuscularly once every month., Disp: , Rfl: dextroamphetamine-amp hetamine (ADDERALL) 10 mg tablet, Take 1 tablet by mouth every afternoon for 30 days., Disp: 30 tabl (more content not included)... Normal [facility] Comprehensive metabolic 2000 panelon 05-26-2023 Albumin [Mass/Vol] 4.7 g/dL Normal 3.9-4.9 [facility] Comment on above: Order Comment: Speci men Type: BLOOD SPECIMEN [facility] Address: [address] [place] [address] Performed By: #### 2 4362-6 #### [facility] CLIA [id number] [address] [place] [address] [place] ALP [Catalytic activity/Vol] 92 U/L Normal 34-123 [facility] Comment on above: Order Comment: Speci men Type: BLOOD SPECIMEN [facility] Address: [address] [place] [address] Performed By: #### 2 4362-6 #### [facility] CLIA [id number] [address] [place] [address] [place] ALT [Catalytic activity/Vol] 17 U/L Normal 7-38 [facility] Comment on above: Order Comment: Speci men Type: BLOOD SPECIMEN [facility] Address: [address] [place] [address] Performed By: #### 2 4362-6 #### [facility] CLIA [id number] [address] [place] [address] [place] Anion gap [Moles/Vol] 11 mmol/L Normal 9-18 [facility] Comment on above: Order Comment: Speci men Type: BLOOD SPECIMEN [facility] Address: [address] [place], [place] [address] Performed By: #### 2 4362-6 #### [facility] CLIA [id number] [address] [place] [address] [place] AST [Catalytic activity/Vol] 32 U/L Normal 13-35 [facility] Comment on above: Order Comment: Speci men Type: BLOOD SPECIMEN [facility] Address: [address] [place], [place] [address] Performed By: #### 2 4362-6 #### [facility] CLIA [id number] [address] [place] [address] [place] Bilirubin [Mass/Vol] 0.5 mg/dL Normal 0.2-1.3 [facility] Comment on above: Order Comment: Speci men Type: BLOOD SPECIMEN [facility] Address: [address] [place] [address] Performed By: #### 2 4362-6 #### [facility] CLIA [id number] [address] [place] [address] [place] Calcium [Mass/Vol] 9.6 mg/dL Normal 8.5-10.2 [facility] Comment on above: Order Comment: Speci men Type: BLOOD SPECIMEN [facility] Address: [address] [place] [address] Performed By: #### 2 4362-6 #### [facility] CLIA [id number] [address] [place] [address] [place] Chloride [Moles/Vol] 100 mmol/L Normal 97-105 [facility] Comment on above: Order Comment: Speci men Type: BLOOD SPECIMEN [facility] Address: [address] Performed By: #### 2 4362-6 #### [facility] CLIA [id number] [facility] [place] [address] [place] CO2 [Moles/Vol] 28 mmol/L Normal 22-30 [facility] Comment on above: Order Comment: Speci men Type: BLOOD SPECIMEN [facility] Address: [address] [place] [address] Performed By: #### 2 4362-6 #### [facility] CLIA [id number] [facility] [place] [address] [place] Creatinine [Mass/Vol] 0.77 mg/dL Normal 0.58-0.96 [facility] Comment on above: Order Comment: Speci men Type: BLOOD SPECIMEN [facility] Address: [address] [place] [place] [address] Performed By: #### 2 4362-6 #### [facility] CLIA [id number] [address] [place] [address] [place] Creatinine and Glomerular filtration rate.predicted panel (S/P/Bld) 105 mL/min/1.73m??? Normal >=60 [facility] Comment on above: Order Comment: Speci men Type: BLOOD SPECIMEN [facility] Address: [address] [place] [address] Result Comment: Anabela mated Glomerular Filtration Rate (eGFR) is calculated using the 2020 CKD-EPI creatinine equation. This equation utilizes serum creatinine, sex, and age as parameters. The creatinine assay has traceable calibration to isotope dilution-mass spectrometry. Refer to KDIGO guidelines for clinical interpretation. In patients with unstable renal function, e.g. those with acute kidney injury, the eGFR may not accurately reflect actual GFR. Performed By: #### 2 4362-6 #### [facility] CLIA [id number] [address] [place] [address] [place] Glucose [Mass/Vol] 72 mg/dL Low 74-99 [facility] Comment on above: Order Comment: Specradhames arenas Type: BLOOD SPECIMEN [facility] Address: [address] [place] [address] Result Comment: The [place] [employer] (ADA) provides guidance for cutoff values for fasting glucose and random glucose. The ADA defines fasting as no caloric intake for at least 8 hours. Fasting plasma glucose results between 100 to 125 mg/dL indicate increased risk for diabetes (prediabetes). Fasting plasma glucose results greater than or equal to 126 mg/dL meet the criteria for diagnosis of diabetes. In the absence of unequivocal hyperglycemia, results should be confirmed by repeat testing. In a patient with classic symptoms of hyperglycemia or hyperglycemic crisis, random plasma glucose results greater than or equal to 200 mg/dL meet the criteria for diagnosis of diabetes. Reference: Standards of Medical Care in Diabetes 2016, [place] [employer]. Diabetes Care. 2016.39(Suppl 1). Performed By: #### 2 4362-6 #### [facility] CLIA [id number] [address] [place] [address] [place] Potassium [Moles/Vol] 4.3 mmol/L Normal 3.7-5.1 [facility] Comment on above: Order Comment: Dada arenas Type: BLOOD SPECIMEN [facility] Address: [address] [place] [address] Performed By: #### 2 4362-6 #### [facility] CLIA [id number] [address] [place] [address] [place] Protein [Mass/Vol] 8.1 g/dL High 6.3-8.0 [facility] Comment on above: Order Comment: Dada arenas Type: BLOOD SPECIMEN [facility] Address: [address] [place] [address] Performed By: #### 2 4362-6 #### [facility] CLIA [id number] [address] [place] [address] [place] Sodium [Moles/Vol] 139 mmol/L Normal 136-144 [facility] Comment on above: Order Comment: Speci men Type: BLOOD SPECIMEN [facility] Address: [address] [place] [address] Performed By: #### 2 4362-6 #### [facility] CLIA [id number] [address] [place] [address] [place] Urea nitrogen [Mass/Vol] 14 mg/dL Normal 7-21 [facility] Comment on above: Order Comment: Speci men Type: BLOOD SPECIMEN [facility]ing Facility[facility] Address: [address] [address] Performed By: #### 2 4362-6 #### [facility] CLIA [id number] [address] [place] [address] [place] TOX SCREEN ROUT URon 023 Amphetamines Confirm (U) [Mass/Vol] Positive Abnormal Negative [facility] Comment on above: Order Comment: Speci men Type: BLOOD SPECIMEN [facility]ing Facility: [facility] Address: [address] [address] Result Comment: Cuto ff threshold at 1000 ng/mL. Performed By: #### 2 4362-6 #### [facility] CLIA [id number] [address] [place] [address] [place] BARBITURATES, URINE Negative Normal Negative [facility] Comment on above: Order Comment: Speci men Type: BLOOD SPECIMEN [facility]ing Facility[facility] Address: [address] [address] Result Comment: Cuto ff threshold at 200 ng/mL. Performed By: #### 2 4362-6 #### [facility] CLIA [id number] [address] [place] [address] [place] BENZODIAZEPINES, UR Negative Normal Negative [facility] Comment on above: Order Comment: Speci men Type: BLOOD SPECIMEN [facility] Address: [address] [address] Result Comment: Cuto ff threshold at 200 ng/mL. Performed By: #### 2 4362-6 #### [facility] CLIA [id number] [address] [place] [address] [place] Cannabinoids Screen Ql (U) Negative Normal Negative [facility] Comment on above: Order Comment: Speci men Type: BLOOD SPECIMEN [facility] Address: [address] [address] Result Comment: Cuto ff threshold at 50 ng/mL. Performed By: #### 2 4362-6 #### [facility] CLIA [id number] [address] [place] [address] [place] Cocaine Ql (U) Negative Normal Negative [facility] Comment on above: Order Comment: Speci men Type: BLOOD SPECIMEN [facility] Address: [address] [place] [address] Result Comment: Cuto ff threshold at 300 ng/mL. Performed By: #### 2 4362-6 #### [facility] CLIA [id number] [address] [place] [address] [place] Ethanol (U) [Mass/Vol] 84 mg/dL High <11 [facility] Comment on above: Order Comment: Speci men Type: BLOOD SPECIMEN [facility] Address: [address] [address] Performed By: #### 2 4362-6 #### [facility] CLIA [id number] [address] [place] [address] [place] Opiates Screen Ql (U) Positive Abnormal Negative [facility] Comment on above: Order Comment: Speci men Type: BLOOD SPECIMEN [facility] Address: [address] [address] Result Comment: Cuto ff threshold at 300 ng/mL. Performed By: #### 2 4362-6 #### [facility] CLIA [id number] [address] [place] [address] [place] oxyCODONE cutoff Screen (U) [Mass/Vol] Negative Normal Negative [facility] Comment on above: Order Comment: Speci men Type: BLOOD SPECIMEN [facility] Address: [address] [place] [address] Result Comment: Cuto ff threshold at 100 ng/mL. Performed By: #### 2 4362-6 #### [facility] CLIA [id number] [address] [place] [address] [place] Phencyclidine Ql (U) Negative Normal Negative [facility] Comment on above: Order Comment: Speci men Type: BLOOD SPECIMEN [facility] Address: [address] [place] [address] Result Comment: Cuto ff threshold at 25 ng/mL. Performed By: #### 2 4362-6 #### [facility] CLIA [id number] [address] [place] [address] [place] [address] L-Spine Post Myelogramon 03-14-2023 CT Lumbar spine WO and W contrast IV Please click on the link to view the study images Normal [facility] [place] [address] DO Work Phone: CT Lumbar spine WO and W contrast IV Normal [facility] Work Phone: CT Lumbar spineon 03-14-2023 Radiology Study observation (narrative) [facility] Work Phone: NR CT L-SPINE POST MYELOGRAM on 03-14-[address] L-SPINE POST MYELOGRAM Patient Name: HUE TITUS STUDY: MYELOGRAPHY, LUMBOSACRAL WITH LUMBAR PUNCTURE; CT L-SPINE [facility]; 03/14/2023 12:59 pm; 03/14/2023 1:10 pm INDICATION: right lumbar radiculopathy. History of scoliosis s/p thoracolumbar fusion M54.16: Lumbar radiculopathy, right; right lumbar radiculopathy. History of scoliosis s/p thoracolumbar fusion M54.50: Lumbar pain M54.16: Lumbar radiculopathy, right. COMPARISON: Radiographs of the lumbosacral spine dated 02/10/2023. ACCESSION NUMBER(S): [id number]; [id number] ORDERING CLINICIAN: TERRIE BROWN TECHNIQUE: After discussion of the risks, benefits and alternatives, standard written hospital consent was obtained. The patient was placed prone on the fluoroscopic table. The lower back was prepped and draped in sterile fashion. One percent lidocaine was used for local anesthesia. Under fluoroscopic guidance, a 22 gauge spinal needle was advanced into the thecal sac at the L5-S1 level. 10 cc of Omnipaque 300 was administered intrathecally under intermittent fluoroscopic imaging. Fluoroscopy time was 0.4 minutes. The patient tolerated the procedure well. Following the fluoroscopic myelogram, serial axial CT images were obtained through the lumbar spine, using a bone algorithm. Images were reformatted into sagittal and coronal planes. FINDINGS: FLUOROSCOPIC MYELOGRAM: Partial visualization of known thoracolumbar fusion hardware. The thecal sac is widely patent. There is diffuse osseous fusion of the posterior elements of the lumbar spine, thus the L5-S1 level was utilized for intrathecal access. Moderate S shaped scoliosis of the thoracolumbar spine. CT MYELOGRAM: Study is limited due to artifact from thoracolumbar fusion hardware. Hardware is intact without fracture, malalignment, or periprosthetic lucency. All findings are reported within these limitations: ALIGNMENT: Moderate S shaped scoliosis thoracolumbar spine. VERTEBRAE/DISC SPACES: The vertebral body heights are intact. Multilevel loss of disc height, particularly at T12-L1, L1-L2, and L2-L3. Diffuse osseous fusion of the posterior elements at the levels of the thoracolumbar hardware. There is a geographic lesion within the posterior fused elements at the L2 level measuring 1.5 x 1.7 x 2.7 cm (AP x TV x CC) (series 201, image 356, series 204, image 40), which fills with contrast. There are nerve roots which partially extends into this lesion (series 201, image 376). There is a similar lesion within the right measuring 1.3 x 1.4 x 1.2 cm (series 201, image 280, series 204, image 43). However, no definite nerve roots extending into this lesion though evaluation is significantly limited given streak artifact. There is contrast seen external to the thecal sac at the L5 level (series 201, image 579), likely due to contrast escaping from the spinal needle during myelographic procedure. T12-L1: No definite canal or foraminal stenosis. L1-2: No definite canal or foraminal stenosis. L2-3: No definite canal stenosis. Limited evaluation of the neural foramina secondary to streak artifact. L3-4: Spinal canal is patent. Limited evaluation of the neural foramina secondary to streak artifact. L4-5: Spinal canal is patent. Shallow disc bulge and facet hypertrophy mildly narrow bilateral foramina. L5-S1: Spinal canal is patent. Mild mmhf-xfzleuf-ugls-rig ht foraminal stenosis secondary to facet hypertrophy and shallow disc bulge. At the level of L5 (series 202, image 117), radiopaque contrast can be seen outside of the thecal sac and along the needle tract. The findings along the needle tract, may be due to residual contrast leaking/tracking along the spinal needle during removal. There is a small amount of expected air posterior to L5, as CT was acquired immediately after the procedure. Incidental: IUD visualized in the uterus. IMPRESSION: Technically successful CT myelogram. L5-S1 level was utilized for intrathecal access due to diffuse fusion of the posterior elements of the thoracolumbar fusion extending to the L4 level. Within limitation of streak artifact from fusion hardware, no definite evidence of high-grade canal or foraminal stenosis within the lumbar spine as detailed within the report. 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 Uncertain if findings may contribute to patient's symptoms. Moderate S shaped scoliosis of the thoracolumbar spine. At the level of L5, contrast can be seen outside of the thecal sac and along the needle tract. Findings may be due to residual contrast leaking/tracking along the spinal needle during removal. If post procedural headache persists, (more content not included)... Normal [facility] NR MYELO, LUMBOSACRAL WITH L UMBAR PUNCTUREon 03-14-2023 NR MYELO, LUMBOSACRAL WITH LUMBAR PUNCTURE Patient Name: HUE TITUS STUDY: MYELOGRAPHY, LUMBOSACRAL WITH LUMBAR PUNCTURE; CT L-SPINE [facility]; 03/14/2023 12:59 pm; 03/14/2023 1:10 pm INDICATION: right lumbar radiculopathy. History of scoliosis s/p thoracolumbar fusion M54.16: Lumbar radiculopathy, right; right lumbar radiculopathy. History of scoliosis s/p thoracolumbar fusion M54.50: Lumbar pain M54.16: Lumbar radiculopathy, right. COMPARISON: Radiographs of the lumbosacral spine dated 02/10/2023. ACCESSION NUMBER(S): [id number]; [id number] ORDERING CLINICIAN: TERRIE BROWN TECHNIQUE: After discussion of the risks, benefits and alternatives, standard written hospital consent was obtained. The patient was placed prone on the fluoroscopic table. The lower back was prepped and draped in sterile fashion. One percent lidocaine was used for local anesthesia. Under fluoroscopic guidance, a 22 gauge spinal needle was advanced into the thecal sac at the L5-S1 level. 10 cc of Omnipaque 300 was administered intrathecally under intermittent fluoroscopic imaging. Fluoroscopy time was 0.4 minutes. The patient tolerated the procedure well. Following the fluoroscopic myelogram, serial axial CT images were obtained through the lumbar spine, using a bone algorithm. Images were reformatted into sagittal and coronal planes. FINDINGS: FLUOROSCOPIC MYELOGRAM: Partial visualization of known thoracolumbar fusion hardware. The thecal sac is widely patent. There is diffuse osseous fusion of the posterior elements of the lumbar spine, thus the L5-S1 level was utilized for intrathecal access. Moderate S shaped scoliosis of the thoracolumbar spine. CT MYELOGRAM: Study is limited due to artifact from thoracolumbar fusion hardware. Hardware is intact without fracture, malalignment, or periprosthetic lucency. All findings are reported within these limitations: ALIGNMENT: Moderate S shaped scoliosis thoracolumbar spine. VERTEBRAE/DISC SPACES: The vertebral body heights are intact. Multilevel loss of disc height, particularly at T12-L1, L1-L2, and L2-L3. Diffuse osseous fusion of the posterior elements at the levels of the thoracolumbar hardware. There is a geographic lesion within the posterior fused elements at the L2 level measuring 1.5 x 1.7 x 2.7 cm (AP x TV x CC) (series 201, image 356, series 204, image 40), which fills with contrast. There are nerve roots which partially extends into this lesion (series 201, image 376). There is a similar lesion within the right measuring 1.3 x 1.4 x 1.2 cm (series 201, image 280, series 204, image 43). However, no definite nerve roots extending into this lesion though evaluation is significantly limited given streak artifact. There is contrast seen external to the thecal sac at the L5 level (series 201, image 579), likely due to contrast escaping from the spinal needle during myelographic procedure. T12-L1: No definite canal or foraminal stenosis. L1-2: No definite canal or foraminal stenosis. L2-3: No definite canal stenosis. Limited evaluation of the neural foramina secondary to streak artifact. L3-4: Spinal canal is patent. Limited evaluation of the neural foramina secondary to streak artifact. L4-5: Spinal canal is patent. Shallow disc bulge and facet hypertrophy mildly narrow bilateral foramina. L5-S1: Spinal canal is patent. Mild zgif-dcniset-cgps-rig ht foraminal stenosis secondary to facet hypertrophy and shallow disc bulge. At the level of L5 (series 202, image 117), radiopaque contrast can be seen outside of the thecal sac and along the needle tract. The findings along the needle tract, may be due to residual contrast leaking/tracking along the spinal needle during removal. There is a small amount of expected air posterior to L5, as CT was acquired immediately after the procedure. Incidental: IUD visualized in the uterus. IMPRESSION: Technically successful CT myelogram. L5-S1 level was utilized for intrathecal access due to diffuse fusion of the posterior elements of the thoracolumbar fusion extending to the L4 level. Within limitation of streak artifact from fusion hardware, no definite evidence of high-grade canal or foraminal stenosis within the lumbar spine as detailed within the report. 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 Uncertain if findings may contribute to patient's symptoms. Moderate S shaped scoliosis of the thoracolumbar spine. At the level of L5, contrast can be seen outside of the thecal sac and along the needle tract. Findings may be due to residual contrast leaking/tracking along the spinal needle during removal. If post procedural headache persists, (more content not included)... Normal [facility] No Panel Informationon 03-[address] myelogram. L5-S1 level was utilized for intrathecal access due to diffuse fusion of the posterior elements of the thoracolumbar fusion extending to the L4 level. Within limitation of streak artifact from fusion hardware, no definite evidence of high-grade canal or foraminal stenosis within the lumbar spine as detailed within the report. 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 Uncertain if findings may contribute to patient's symptoms. Moderate S shaped scoliosis of the thoracolumbar spine. At the level of L5, contrast can be seen outside of the thecal sac and along the needle tract. Findings may be due to residual contrast leaking/tracking along the spinal needle during removal. If post procedural headache persists, attention at this level is recommended to assess for dural tear. I, Dr. Dennis, supervised and was available throughout this procedure as performed by resident physician Dr. Ramirez. This study was performed and interpreted at [facility]. I agree with the procedural description and the findings as stated. [facility] Interpreted By: DINA DENNIS MD and FER GENTILE MD Patient Name: HUE TITUS STUDY: MYELOGRAPHY, LUMBOSACRAL WITH LUMBAR PUNCTURE; CT L-SPINE [facility]; 03/14/2023 12:59 pm; 03/14/2023 1:10 pm INDICATION: right lumbar radiculopathy. History of scoliosis s/p thoracolumbar fusion M54.16: Lumbar radiculopathy, right; right lumbar radiculopathy. History of scoliosis s/p thoracolumbar fusion M54.50: Lumbar pain M54.16: Lumbar radiculopathy, right. COMPARISON: Radiographs of the lumbosacral spine dated 02/10/2023. ACCESSION NUMBER(S): [id number]; [id number] ORDERING CLINICIAN: TERRIE BROWN TECHNIQUE: After discussion of the risks, benefits and alternatives, standard written hospital consent was obtained. The patient was placed prone on the fluoroscopic table. The lower back was prepped and draped in sterile fashion. One percent lidocaine was used for local anesthesia. Under fluoroscopic guidance, a 22 gauge spinal needle was advanced into the thecal sac at the L5-S1 level. 10 cc of Omnipaque 300 was administered intrathecally under intermittent fluoroscopic imaging. Fluoroscopy time was 0.4 minutes. The patient tolerated the procedure well. Following the fluoroscopic myelogram, serial axial CT images were obtained through the lumbar spine, using a bone algorithm. Images were reformatted into sagittal and coronal planes. FINDINGS: FLUOROSCOPIC MYELOGRAM: Partial visualization of known thoracolumbar fusion hardware. The thecal sac is widely patent. There is diffuse osseous fusion of the posterior elements of the lumbar spine, thus the L5-S1 level was utilized for intrathecal access. Moderate S shaped scoliosis of the thoracolumbar spine. CT MYELOGRAM: Study is limited due to artifact from thoracolumbar fusion hardware. Hardware is intact without fracture, malalignment, or periprosthetic lucency. All findings are reported within these limitations: ALIGNMENT: Moderate S shaped scoliosis thoracolumbar spine. VERTEBRAE/DISC SPACES: The vertebral body heights are intact. Multilevel loss of disc height, particularly at T12-L1, L1-L2, and L2-L3. Diffuse osseous fusion of the posterior elements at the levels of the thoracolumbar hardware. There is a geographic lesion within the posterior fused elements at the L2 level measuring 1.5 x 1.7 x 2.7 cm (AP x TV x CC) (series 201, image 356, series 204, image 40), which fills with contrast. There are nerve roots which partially extends into this lesion (series 201, image 376). There is a similar lesion within the right measuring 1.3 x 1.4 x 1.2 cm (series 201, image 280, series 204, image 43). However, no definite nerve roots extending into this lesion though evaluation is significantly limited given streak artifact. There is contrast seen external to the thecal sac at the L5 level (series 201, image 579), likely due to contrast escaping from the spinal needle during myelographic procedure. T12-L1: No definite canal or foraminal stenosis. L1-2: No definite canal or foraminal stenosis. L2-3: No definite canal stenosis. Limited evaluation of the neural foramina secondary to streak artifact. L3-4: Spinal canal is patent. Limited evaluation of the neural foramina secondary to streak artifact. L4-5: Spinal canal is patent. Shallow disc bulge and facet hypertrophy mildly narrow bilateral foramina. L5-S1: Spinal canal is patent. Mild tgrq-dlakiby-qbba-rig ht foraminal stenosis secondary to facet hypertrophy and shallow disc bulge. At the level of L5 (series 202, image 117), radiopaque contrast can be seen outside of the thecal sac and along the needle tract. The findings along the needle tract, may be due to residual contrast leaking/tracking along the spinal needle during removal. There is a small amount of expected air posterior to L5, as CT was acquired immediately after the procedure. Incidental: IUD visualized in the uterus. [facility] Dina Dennis MD - 03/14/2023 Interpreted By: DINA DENNIS MD and FER GENTILE MD Patient Name: HUE TITUS STUDY: MYELOGRAPHY, LUMBOSACRAL WITH LUMBAR PUNCTURE; CT L-SPINE [facility]; 03/14/2023 12:59 pm; 03/14/2023 1:10 pm INDICATION: right lumbar radiculopathy. History of scoliosis s/p thoracolumbar fusion M54.16: Lumbar radiculopathy, right; right lumbar radiculopathy. History of scoliosis s/p thoracolumbar fusion M54.50: Lumbar pain M54.16: Lumbar radiculopathy, right. COMPARISON: Radiographs of the lumbosacral spine dated 02/10/2023. ACCESSION NUMBER(S): [id number]; [id number] ORDERING CLINICIAN: TERRIE BROWN TECHNIQUE: After discussion of the risks, benefits and alternatives, standard written hospital consent was obtained. The patient was placed prone on the fluoroscopic table. The lower back was prepped and draped in sterile fashion. One percent lidocaine was used for local anesthesia. Under fluoroscopic guidance, a 22 gauge spinal needle was advanced into the thecal sac at the L5-S1 level. 10 cc of Omnipaque 300 was administered intrathecally under intermittent fluoroscopic imaging. Fluoroscopy time was 0.4 minutes. The patient tolerated the procedure well. Following the fluoroscopic myelogram, serial axial CT images were obtained through the lumbar spine, using a bone algorithm. Images were reformatted into sagittal and coronal planes. FINDINGS: FLUOROSCOPIC MYELOGRAM: Partial visualization of known thoracolumbar fusion hardware. The thecal sac is widely patent. There is diffuse osseous fusion of the posterior elements of the lumbar spine, thus the L5-S1 level was utilized for intrathecal access. Moderate S shaped scoliosis of the thoracolumbar spine. CT MYELOGRAM: Study is limited due to artifact from thoracolumbar fusion hardware. Hardware is intact without fracture, malalignment, or periprosthetic lucency. All findings are reported within these limitations: ALIGNMENT: Moderate S shaped scoliosis thoracolumbar spine. VERTEBRAE/DISC SPACES: The vertebral body heights are intact. Multilevel loss of disc height, particularly at T12-L1, L1-L2, and L2-L3. Diffuse osseous fusion of the posterior elements at the levels of the thoracolumbar hardware. There is a geographic lesion within the posterior fused elements at the L2 level measuring 1.5 x 1.7 x 2.7 cm (AP x TV x CC) (series 201, image 356, series 204, image 40), which fills with contrast. There are nerve roots which partially extends into this lesion (series 201, image 376). There is a similar lesion within the right measuring 1.3 x 1.4 x 1.2 cm (series 201, image 280, series 204, image 43). However, no definite nerve roots extending into this lesion though evaluation is significantly limited given streak artifact. There is contrast seen external to the thecal sac at the L5 level (series 201, image 579), likely due to contrast escaping from the spinal needle during myelographic procedure. T12-L1: No definite canal or foraminal stenosis. L1-2: No definite canal or foraminal stenosis. L2-3: No definite canal stenosis. Limited evaluation of the neural foramina secondary to streak artifact. L3-4: Spinal canal is patent. Limited evaluation of the neural foramina secondary to streak artifact. L4-5: Spinal canal is patent. Shallow disc bulge and facet hypertrophy mildly narrow bilateral foramina. L5-S1: Spinal canal is patent. Mild dwnz-ntdtpau-cmnf-rig ht foraminal stenosis secondary to facet hypertrophy and shallow disc bulge. At the level of L5 (series 202, image 117), radiopaque contrast can be seen outside of the thecal sac and along the needle tract. The findings along the needle tract, may be due to residual contrast leaking/tracking along the spinal needle during removal. There is a small amount of expected air posterior to L5, as CT was acquired immediately after the procedure. Incidental: IUD visualized in the uterus. IMPRESSION: Technically successful CT myelogram. L5-S1 level was utilized for intrathecal access due to diffuse fusion of the posterior elements of the thoracolumbar fusion extending to the L4 level. Within limitation of streak artifact from fusion hardware, no definite evidence of high-grade canal or foraminal stenosis within the lumbar spine as detailed within the report. 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 Uncertain if findings may contribute to patient's symptoms. Moderate S shaped scoliosis of the thoracolumbar spine. At the level of L5, contrast can be seen outside of the thecal sac and along th (more content not included)... [place] [facility] Work Phone: Please click on the link to view the study images Normal [facility] [place] [address] DO Work Phone: Normal [facility] Work Phone: No Panel InformationOrdered By: Dina Dennis on 03-14-2023 [facility] Work Phone: RF Guidance for injection of Lumbar spineon 03-14-2023 Radiology Study observation (narrative) [facility] Work Phone: CBCon 03-12-2023 Erythrocyte distribution width (RBC) [Ratio] 13.9 % Normal 11.5 - 14.5 [facility] Comment on above: Performed By: #### C BC #### [address] [id number] Hematocrit (Bld) [Volume fraction] 39.3 % Normal 36.0 - 46.0 [facility] Comment on above: Performed By: #### C BC #### [address] [id number] Hemoglobin (Bld) [Mass/Vol] 12.8 g/dL Normal 12.0 - 16.0 [facility] Comment on above: Performed By: #### C BC #### [address] [id number] MCHC (RBC) [Mass/Vol] 32.6 g/dL Normal 32.0 - 36.0 [facility] Comment on above: Performed By: #### C BC #### [address] [id number] MCV (RBC) [Entitic vol] 96 fL Normal 80 - 100 [facility] Comment on above: Performed By: #### C BC #### [address] [id number] Platelets (Bld) [#/Vol] 335 10*3/uL Normal 150 - 450 [facility] Comment on above: Performed By: #### C BC #### [address] [id number] RBC 4.11 x10E12/L Normal 4.00 - 5.20 [facility] Comment on above: Performed By: #### C BC #### [address] [id number] WBC (Bld) [#/Vol] 13.6 10*3/uL High 4.4 - 11.3 [facility] Comment on above: Performed By: #### C BC #### [address] [id number] Laboratory - Coagulationon 0 03-12-2023 INR Coag (PPP) [Relative time] 1.0 {INR} 0.9 - 1.1 [facility] [place] [address] DO Work Phone: PT Coag (PPP) [Time] 11.1 s 9.8 - 12.8 [facility] [place] [address] DO Work Phone: Comment on above: Note new reference r clay as of 02/22/2023 at 10:00am. Laboratory - Hematology and Cell countson 03-12-2023 Erythrocyte distribution width (RBC) [Ratio] 13.9 % See Below [facility] [place] [address] DO Work Phone: Comment on above: Reference Range: 11. 5 - 14.5 Hematocrit (Bld) [Volume fraction] 39.3 % See Below [facility] [place] [address] DO Work Phone: Comment on above: Reference Range: 36. 0 - 46.0 Hemoglobin (Bld) [Mass/Vol] 12.8 g/dL See Below [facility] [place] [address] DO Work Phone: Comment on above: Reference Range: 12. 0 - 16.0 MCHC (RBC) [Mass/Vol] 32.6 g/dL See Below [facility] [place] [address] DO Work Phone: Comment on above: Reference Range: 32. 0 - 36.0 MCV (RBC) [Entitic vol] 96 fL 80 - 100 [facility] [place] [facility] DO Work Phone: Platelets (Bld) [#/Vol] 335 10*3/uL 150 - 450 [facility] [place] [facility] DO Work Phone: RBC (Bld) [#/Vol] 4.11 {x10E12/L} See Below [facility] [place] [address] DO Work Phone: Comment on above: Reference Range: 4.0 0 - 5.20 WBC (Bld) [#/Vol] 13.6 10*3/uL above high threshold 4.4 - 11.3 [facility] [place] [address] DO Work Phone: PT/INRon 03-12-2023 PT Coag (PPP) [Time] 11.1 s Normal 9.8 - 12.8 [facility] Comment on above: Result Comment: Note new reference range as of 02/22/2023 at 10:00am. Performed By: #### P TINR #### [address] [id number] PT, INR 1.0 Normal 0.9 - 1.1 [facility] Comment on above: Performed By: #### P TINR #### [address] [id number] CNOVon 03-03-2023 [facility] HUE TITUS ([id number]) 1990 F T Date Time Provider Department 03/03/23 11:30 AM ARIA IZQUIERDO During your visit today, we recorded the following information about you: Pulse Blood pressure Weight Height 79/minute 136/92 60.1 kg 1.702 m Last Period 02/13/23 Aria Izquierdo PA-C 03/03/2023 11:46 AM Signed IUD INSTRUCTIONS 1. Return to the office in 4 weeks. 2. Call if excessive pelvic pain,heavy vaginal bleeding, fever or abnormal vaginal discharge. 3. Motrin as needed for pain. 4. Use condoms or abstain from intercourse the first 1 week after insertion. 5. Maintain a mutually monogamous relationship. 6. You may have daily spotting or bleeding for up to 6 months. Aria Izquierdo PA-C 03/03/2023 12:16 PM Signed IUD INSERTION PROCEDURE Date/Time: 03/03/2023 12:08 PM Performed by: Aria Izquierdo PA-C Authorized by: Aria Izquierdo PA-C Indication: contraception Diagnosis: (Z30.430) Encounter for IUD insertion (primary encounter diagnosis) Patient's last menstrual period was 02/13/2023 (approximate). Informed Consent Consent Obtained: Written [place] Protocol A moment to CARE was completed. SIGN IN Personnel directly involved with the procedure wore the appropriate PPE. Special Equipment: N/A Patient/Surrogate Stated/Verified: Patient name, Date of , Relevant allergies and Intended procedure TIME OUT Intended patient and procedure match the source document(s). Consent documented and matches the intended procedure. Relevant labs, photos, and/or imaging studies have been reviewed. Correct side/site marked and visible. No medications required for procedure. No fire risk assessment and interventions applicable. Implant(s) inserted. Correct implant(s) confirmed including size and side and Expiration date(s) reviewed. Pre-Procedure Details: Personnel: Personnel directly involved with the procedure wore the appropriate PPE Procedure Details: Urine test: negative Speculum placed in vagina. Cervix cleaned and prepped. Tenaculum applied to cervix. Uterus sounded. (required dilation) Uterus sound depth (cm): 6 IUD inserted successfully: yes (initial attempt unsiccessful, IUD too low) IUD type: Mirena IUD Source: Office provided Strings trimmed. Post-Procedure Details: Patient tolerated the procedure with difficulty Patient Education: side effects discussed with patient including irregular spotting. Patient to follow-up PRN any problems. SIGN OUT All instruments, equipment, possible retained foreign bodies accounted for. Aria Izquierdo PA-C Referring Provider: ARIA IZQUIERDO [[id number]] Allergies As of Date: 03/03/2023 (No Known Allergies) Date Reviewed: 03/03/2023 Reviewed by: Aria Izquierdo PA-C - Fully Assessed Reason for Visit: Insertion Of IUD [291] Primary Visit Diagnosis:Encounter for IUD insertion [Z30.430] Order(s):HCG QUAL UR B/O [3543218] Order #: [id number] [] levonorgestrel 21 mcg/24 hours (8 yrs) 52 mg 1 Each intrauterine device (MIRENA)Disp: Rfl: IUD INSERTION [PRO92] Order #: [id number] Prescriptions as of 03/18/2023 - pregabalin (LYRICA) 50 mg capsule Take 1 capsule by mouth three times daily for 30 days. - metoprolol tartrate, short acting, (LOPRESSOR) 25 mg tablet Take 1 tablet by mouth twice daily. - dextroamphetamine-amp hetamine (ADDERALL) 10 mg tablet Take 1 tablet by mouth every afternoon for 30 days. - ADDERALL XR 30 mg biphasic capsule Take 1 capsule by mouth once daily for 30 days. - ergocalciferol 50,000 unit capsule (VITAMIN D2, DRISDOL) Take 1 capsule by mouth one time a week. - buPROPion XL (WELLBUTRIN XL) 150 mg 24 hr tablet Take 1 tablet by mouth once daily. - escitalopram oxalate (LEXAPRO) 10 mg tablet Take 1 tablet by mouth once daily. - gabapentin (NEURONTIN) 600 mg tablet Take 2 tablets by mouth three times daily for 30 days. - cyanocobalamin 1,000 mcg/mL Inject 1,000 mcg intramuscularly once every month. Facility-Administered Medications as of 03/18/2023 - perflutren lipid microspheres 1.3 mL in NaCl (PF) 0.9% 10 mL injection (DEFINITY) - sodium chloride 0.9 % (flush) 10 mL (BD POSIFLUSH) Problem List As Of Date 03/03/2023 Noted Resolved Paroxysmal atrial fibrillation (HCC) [I48.0] 09/27/2022 Other instructions from your clinician: IUD INSTRUCTIONS 1. Return to the office in 4 weeks. 2. Call if excessive pelvic pain,heavy vaginal bleeding, fever or abnormal vaginal discharge. 3. Motrin as needed for pain. 4. Use condoms or abstain from intercourse the first 1 week after insertion. 5. Maintain a mutually monogamous relationship. 6. You may have daily spotting or bleeding for up to 6 months. Prescriptions ordered this encounter Disp Refills Start End LEVONORGESTREL 21 MCG/24 HOURS (8 YR* 03/03/2023 03/03/2023 Route: I (more content not included)... Normal [facility] CNOVon 02-22-2023 [facility] [place] [place] HUE TITUS ([id number]) 1990 F CHT Date Time Provider Department 02/22/23 2:00 [facility] your visit today, we recorded the following information about you: Pulse Blood pressure Weight Height 90/minute 110/79 56.2 kg 1.702 m Ashwini Matute PA-C 02/22/2023 3:32 PM Signed This note was created using [employer] Interactiver[employer]. Subjective Hue Titus is a 32 year old female. HPI Hue Titus is a 32 year old female who presents today accompanied by her boyfriend for f/u after starting lexapro at her last visit. She has not noticed much of an improvement from it and still admits to feeling down and depressed. She does not have any anxiety and says anxiety was the reason she was initially prescribed it a few years ago. She is having a difficult time as it has been one year since her cousin's . She also feels down and discouraged about her back pain. She has started seeing a new marketing finance specialist at . Past Medical History: PAST MEDICAL HISTORY Diagnosis Date ADHD (attention deficit hyperactivity disorder) Ovarian cyst PAF (paroxysmal atrial fibrillation) ([facility]) 07/2022 follows with cardiology Scoliosis SVT, lower extremity ([facility]) 2018 ASA only no anticoagulants Past Surgical History: PAST SURGICAL HISTORY Procedure Laterality Date OTHER SURGICAL HISTORY (PLEASE SPECIFY) HX 2005,2006 back surgery x2 for scoliosis with marilu placement Family History: FAMILY HISTORY Problem Relation Age of Onset other (osteoarthritis [Other]) Mother Scoliosis Father Scoliosis Paternal Aunt Social History: Social History Tobacco Use Smoking status: Never Smokeless tobacco: Never Tobacco comments: vapes Substance Use Topics Alcohol use: No Drug use: No Current Medications: ADDERALL XR 30 mg biphasic capsule, Take 1 capsule by mouth once daily for 30 days., Disp: 30 capsule, Rfl: 0 dextroamphetamine-amp hetamine (ADDERALL) 10 mg tablet, Take 10 mg by mouth every afternoon., Disp: , Rfl: pregabalin (LYRICA) 50 mg capsule, Take 1 capsule by mouth three times daily for 30 days., Disp: , Rfl: gabapentin (NEURONTIN) 600 mg tablet, Take 2 tablets by mouth three times daily for 30 days., Disp: , Rfl: cyanocobalamin 1,000 mcg/mL, Inject 1,000 mcg intramuscularly once every month., Disp: , Rfl: metoprolol tartrate, short acting, (LOPRESSOR) 25 mg tablet, Take 1 tablet by mouth twice daily., Disp: 60 tablet, Rfl: 0 ergocalciferol 50,000 unit capsule (VITAMIN D2, DRISDOL), Take 1 capsule by mouth one time a week., Disp: 4 capsule, Rfl: 7 buPROPion XL (WELLBUTRIN XL) 150 mg 24 hr tablet, Take 1 tablet by mouth once daily., Disp: 30 tablet, Rfl: 2 escitalopram oxalate (LEXAPRO) 10 mg tablet, Take 1 tablet by mouth once daily., Disp: 90 tablet, Rfl: 1 [DISCONTINUED] escitalopram oxalate (LEXAPRO) 10 mg tablet, 0.5 tab daily for 1 week then 1 tab daily, Disp: 30 tablet, Rfl: 1 perflutren lipid microspheres 1.3 mL in NaCl (PF) 0.9% 10 mL injection (DEFINITY), , INTRAVENOUS, DIRECTED PRN, Jessee Hamilton MD sodium chloride 0.9 % (flush) 10 mL (BD POSIFLUSH), 10 mL, INTRAVENOUS, DIRECTED PRN, Jessee Hamilton MD Allergies: ALLERGIES No Known Allergies Vitals: BP 110/79 Pulse 90 Ht 5' 7 (1.70m) Wt 124 lb (56.2kg) SpO2 98% LMP 01/12/2023 BMI 19.42 kg/(m2). Review of Systems see HPI. ROS otherwise negative. Objective BP 110/79 Pulse 90 Ht 170.2 cm (5' 7 ) Wt 56.2 kg (124 lb) LMP 01/12/2023 SpO2 98% BMI 19.42 kg/m? Physical Exam Vitals reviewed. Constitutional: General: She is not in acute distress. Appearance: Normal appearance. She is normal weight. She is not ill-appearing, toxic-appearing or diaphoretic. Cardiovascular: Rate and Rhythm: Normal rate and regular rhythm. Pulmonary: Effort: Pulmonary effort is normal. No respiratory distress. Breath sounds: Normal breath sounds. No stridor. No wheezing, rhonchi or rales. Chest: Chest wall: No tenderness. Neurological: Mental Status: She is alert. Psychiatric: Mood and Affect: Mood normal. Behavior: Behavior normal. Assessment and Plan ASSESSMENT/PLAN: 1. Mild episode of recurrent major depressive disorder (HCC) - ICD9: 296.31, ICD10: F33.0 (primary diagnosis) Discussed treatment options and suggested adding wellbutrin to Lexapro. She will start with 150mg and f/u in 4-6 weeks with an update on her symptoms. 2. Attention deficit hyperactivity disorder (ADHD), unspecified ADHD type - ICD9: 314.01, ICD10: F90.9 No refills needed at this time. I will be taking over the prescribing of her Adderall Rx's from now on as she is no longer seeing her previous PCP in [place]. 3. Vitamin D deficiency - ICD9: 268.9, ICD10: E55.9 Start high dose vitamin D once weekly. Rx sent in. RICHIE Velasco (more content not included)... Normal [facility] 25(OH)D3 [facility] 2022 25-hydroxyvitamin D3 [Mass/Vol] 24.8 ng/mL Low 31.0-80.0 [facility] Comment on above: Order Comment: Speci men Type: BLOOD SPECIMEN [facility] Facility[facility] Address: [address] [place], [place] [address] Result Comment: Clas sification of 25 OH Vitamin D status: Deficiency/Insufficiency: < or = 30 ng/ml. Sufficiency/Optimal Levels: 31-80 ng/mL Toxicity: > 100 ng/mL. Test performed by chemiluminescent immunoassay. Performed By: #### 2 4362-6 #### [facility] CLIA [id number] [address] [facility] [place] [address] [place] CBC W Auto Differential pane l (Bld)on 02-15-2023 Basophils (Bld) [#/Vol] 0.04 10*3/uL Normal <0.11 [facility] Comment on above: Order Comment: Speci men Type: BLOOD SPECIMEN Ordering Facility: [facility] Address: [address] Performed By: #### 2 4362-6 #### [facility] CLIA [id number] [address] [place] [address] [place] Basophils/100 WBC (Bld) 0.5 % Normal [facility] Comment on above: Order Comment: Speci men Type: BLOOD SPECIMEN Ordering Facility: [facility] Address: [address] Performed By: #### 2 4362-6 #### [facility] CLIA [id number] [address] [place] [address] [place] Differential cell count method Nom (Bld) Auto Normal [facility] Comment on above: Order Comment: Speci men Type: BLOOD SPECIMEN Order[facility] Facility: [facility] Address: [address] Performed By: #### 2 4362-6 #### [facility] CLIA [id number] [address] [place] [address] [place] Eosinophils (Bld) [#/Vol] 0.12 10*3/uL Normal <0.46 [facility] Comment on above: Order Comment: Speci men Type: BLOOD SPECIMEN [facility] Address: [address] Performed By: #### 2 4362-6 #### [facility] CLIA [id number] [address] [place] [address] [place] Eosinophils/100 WBC (Bld) 1.6 % Normal [facility] Comment on above: Order Comment: Speci men Type: BLOOD SPECIMEN [facility] Address: [address] Performed By: #### 2 4362-6 #### [facility] CLIA [id number] [address] [place] [address] [place] Erythrocyte distribution width (RBC) [Ratio] 13.7 % Normal 11.5-15.0 [facility] Comment on above: Order Comment: Speci men Type: BLOOD SPECIMEN [facility] Address: [address] [place] [address] Performed By: #### 2 4362-6 #### [facility] CLIA [id number] [address] [place] [address] [place] Hematocrit (Bld) [Volume fraction] 38.1 % Normal 36.0-46.0 [facility] Comment on above: Order Comment: Speci men Type: BLOOD SPECIMEN [facility] Address: [address] [place] [address] Performed By: #### 2 4362-6 #### [facility] CLIA [id number] [address] [place] [address] [place] Hemoglobin (Bld) [Mass/Vol] 12.7 g/dL Normal 11.5-15.5 [facility] Comment on above: Order Comment: Speci men Type: BLOOD SPECIMEN [facility] Address: [address] [place], [place] [address] Performed By: #### 2 4362-6 #### [facility] CLIA [id number] [address] [place] [address] [place] Immature granulocytes (Bld) [#/Vol] 0.09 10*3/uL Normal <0.10 [facility] Comment on above: Order Comment: Speci men Type: BLOOD SPECIMEN [facility] Address: [address] [place], [place] [address] Performed By: #### 2 4362-6 #### [facility] CLIA [id number] [address] [place] [address] [place] Immature granulocytes/100 WBC (Bld) 1.2 % Normal [facility] Comment on above: Order Comment: Speci men Type: BLOOD SPECIMEN [facility] Address: [address] [place] [address] Performed By: #### 2 4362-6 #### [facility] CLIA [id number] [address] [place] [address] [place] Lymphocytes (Bld) [#/Vol] 2.77 10*3/uL Normal 1.00-4.00 [facility] Comment on above: Order Comment: Speci men Type: BLOOD SPECIMEN [facility] Address: [address] [place], [place] [address] Performed By: #### 2 4362-6 #### [facility] CLIA [id number] [facility] [place] [address] [place] Lymphocytes/100 WBC (Bld) 37.6 % Normal [facility] Comment on above: Order Comment: Speci men Type: BLOOD SPECIMEN [facility] Address: [address] [place], [place] [address] Performed By: #### 2 4362-6 #### [facility] CLIA [id number] [address] [place] [address] [place] MCH (RBC) [Entitic mass] 30.2 pg Normal 26.0-34.0 [facility] Comment on above: Order Comment: Speci men Type: BLOOD SPECIMEN [facility] Address: [address] [place] [address] Performed By: #### 2 4362-6 #### [facility] CLIA [id number] [address] [place] [address] [place] MCHC (RBC) [Mass/Vol] 33.3 g/dL Normal 30.5-36.0 [facility] Comment on above: Order Comment: Speci men Type: BLOOD SPECIMEN [facility] Address: [address] [place], [place] [address] Performed By: #### 2 4362-6 #### [facility] CLIA [id number] [address] [place] [address] [place] MCV (RBC) [Entitic vol] 90.7 fL Normal 80.0-100.0 [facility] Comment on above: Order Comment: Speci men Type: BLOOD SPECIMEN [facility] Address: [address] Performed By: #### 2 4362-6 #### [facility] CLIA [id number] [address] [place] [address] [place] Monocytes (Bld) [#/Vol] 0.80 10*3/uL Normal <0.87 [facility] Comment on above: Order Comment: Speci men Type: BLOOD SPECIMEN [facility] Address: [address] Performed By: #### 2 4362-6 #### [facility] CLIA [id number] [address] [place] [address] [place] Monocytes/100 WBC (Bld) 10.9 % Normal [facility] Comment on above: Order Comment: Speci men Type: BLOOD SPECIMEN [facility] Address: [address] Performed By: #### 2 4362-6 #### [facility] CLIA [id number] [address] [place] [address] [place] Neutrophils (Bld) [#/Vol] 3.55 10*3/uL Normal 1.45-7.50 [facility] Comment on above: Order Comment: Speci men Type: BLOOD SPECIMEN [facility] Address: [address] Performed By: #### 2 4362-6 #### [facility] CLIA [id number] [address] [place] [address] [place] Neutrophils/100 WBC (Bld) 48.2 % Normal [facility] Comment on above: Order Comment: Speci men Type: BLOOD SPECIMEN [facility] Address: [address] [place] [address] Performed By: #### 2 4362-6 #### [facility] CLIA [id number] [address] [place] [address] [place] Nucleated RBC (Bld) [#/Vol] 10*3/uL Normal <0.01 [facility] Comment on above: Order Comment: Speci men Type: BLOOD SPECIMEN [facility] Address: [address] [place], [place] [address] Performed By: #### 2 4362-6 #### [facility] CLIA [id number] [address] [place] [address] [place] Nucleated RBC/100 WBC (Bld) [Ratio] 0.0 /100 WBC Normal [facility] Comment on above: Order Comment: Speci men Type: BLOOD SPECIMEN [facility] Address: [address] [place], [place] [address] Performed By: #### 2 4362-6 #### [facility] CLIA [id number] [address] [place] [address] [place] Platelet mean volume (Bld) [Entitic vol] 9.4 fL Normal 9.0-12.7 [facility] Comment on above: Order Comment: Speci men Type: BLOOD SPECIMEN [facility] Address: [address] [place] [address] Performed By: #### 2 4362-6 #### [facility] CLIA [id number] [address] [place] [address] [place] Platelets (Bld) [#/Vol] 493 10*3/uL High 150-400 [facility] Comment on above: Order Comment: Speci men Type: BLOOD SPECIMEN [facility] Address: [address] Performed By: #### 2 4362-6 #### [facility] CLIA [id number] [address] [place] [address] [place] RBC (Bld) [#/Vol] 4.20 10*6/uL Normal 3.90-5.20 [facility] Comment on above: Order Comment: Speci men Type: BLOOD SPECIMEN [facility] Address: [address] Performed By: #### 2 4362-6 #### [facility] CLIA [id number] [address] [place] [address] [place] WBC (Bld) [#/Vol] 7.37 10*3/uL Normal 3.70-11.00 [facility] Comment on above: Order Comment: Speci men Type: BLOOD SPECIMEN [facility] Address: [address] [place], [place] [address] Performed By: #### 2 4362-6 #### [facility] [place] [id number] [address] [place] [address] [place] Comprehensive metabolic 2000 panelon 02-15-2023 Albumin [Mass/Vol] 4.4 g/dL Normal 3.9-4.9 [facility] Comment on above: Order Comment: Speci men Type: BLOOD SPECIMEN [facility] Address: [address] [place], [place] [address] Performed By: #### 2 4362-6 #### [facility] [place] [id number] [address] [place] [address] [place] ALP [Catalytic activity/Vol] 89 U/L Normal 34-123 [facility] Comment on above: Order Comment: Speci men Type: BLOOD SPECIMEN [facility] Address: [address] [place], [place] [address] Performed By: #### 2 4362-6 #### [facility] CLIA [id number] [address] [place] [address] [place] ALT [Catalytic activity/Vol] 13 U/L Normal 7-38 [facility] Comment on above: Order Comment: Speci men Type: BLOOD SPECIMEN [facility] Address: [address] Performed By: #### 2 4362-6 #### [facility] CLIA [id number] [address] [place] [address] [place] Anion gap [Moles/Vol] 12 mmol/L Normal 9-18 [facility] Comment on above: Order Comment: Speci men Type: BLOOD SPECIMEN [facility] Address: [address] [place], [place] [address] Performed By: #### 2 4362-6 #### [facility] CLIA [id number] [address] [place] [address] [place] AST [Catalytic activity/Vol] 24 U/L Normal 13-35 [facility] Comment on above: Order Comment: Speci men Type: BLOOD SPECIMEN [facility] Address: [address] [place] [address] Performed By: #### 2 4362-6 #### [facility] CLIA [id number] [address] [place] [address] [place] Bilirubin [Mass/Vol] 0.3 mg/dL Normal 0.2-1.3 [facility] [facility] Comment on above: Order Comment: Speci men Type: BLOOD SPECIMEN [facility] Address: [address] [place] [address] Performed By: #### 2 4362-6 #### [facility] CLIA [id number] [address] [place] [address] [place] Calcium [Mass/Vol] 10.5 mg/dL High 8.5-10.2 [facility] Comment on above: Order Comment: Speci men Type: BLOOD SPECIMEN [facility] Address: [address] Performed By: #### 2 4362-6 #### [facility] CLIA [id number] [address] [place] [address] [place] Chloride [Moles/Vol] 102 mmol/L Normal 97-105 [facility] Comment on above: Order Comment: Speci men Type: BLOOD SPECIMEN [facility] Address: [address] Performed By: #### 2 4362-6 #### [facility] CLIA [id number] [address] [place] [address] [place] CO2 [Moles/Vol] 25 mmol/L Normal 22-30 [facility] Comment on above: Order Comment: Speci men Type: BLOOD SPECIMEN [facility] Address: [address] Performed By: #### 2 4362-6 #### [facility] CLIA [id number] [address] [place] [address] [place] Creatinine [Mass/Vol] 0.77 mg/dL Normal 0.58-0.96 [facility] Comment on above: Order Comment: Speci men Type: BLOOD SPECIMEN [facility] Address: [address] Performed By: #### 2 4362-6 #### [facility] CLIA [id number] [address] [place] [address] [place] ESTIMATED GLOMERULAR FILTRATION RATE 106 mL/min/1.73m??? Normal >=60 [facility] Comment on above: Order Comment: Speci men Type: BLOOD SPECIMEN [facility] Address: [address] [place], [place] [id number] Result Comment: Anabela mated Glomerular Filtration Rate (eGFR) is calculated using the 2020 CKD-EPI creatinine equation. This equation utilizes serum creatinine, sex, and age as parameters. The creatinine assay has traceable calibration to isotope dilution-mass spectrometry. Refer to KDIGO guidelines for clinical interpretation. In patients with unstable renal function, e.g. those with acute kidney injury, the eGFR may not accurately reflect actual GFR. Performed By: #### 2 4362-6 #### [facility] IA [id number] [facility] [place] [address] [place] Glucose [Mass/Vol] 98 mg/dL Normal 74-99 [facility] Comment on above: Order Comment: Dada arenas Type: BLOOD SPECIMEN [facility] Address: [address] [place] [id number] Result Comment: The [place] Diabetes Association (ADA) provides guidance for cutoff values for fasting glucose and random glucose. The ADA defines fasting as no caloric intake for at least 8 hours. Fasting plasma glucose results between 100 to 125 mg/dL indicate increased risk for diabetes (prediabetes). Fasting plasma glucose results greater than or equal to 126 mg/dL meet the criteria for diagnosis of diabetes. In the absence of unequivocal hyperglycemia, results should be confirmed by repeat testing. In a patient with classic symptoms of hyperglycemia or hyperglycemic crisis, random plasma glucose results greater than or equal to 200 mg/dL meet the criteria for diagnosis of diabetes. Reference: Standards of Medical Care in Diabetes 2016, [place] [employer] Association. Diabetes Care. 2016.39(Suppl 1). Performed By: #### 2 4362-6 #### [facility] CLIA [id number] [address] [place] [address] [place] Potassium [Moles/Vol] 4.4 mmol/L Normal 3.7-5.1 [facility] Comment on above: Order Comment: Dada arenas Type: BLOOD SPECIMEN [facility] Address: [address] [place] [address] Performed By: #### 2 4362-6 #### [facility] IA [id number] [facility] [place] [id number] [place] Protein [Mass/Vol] 7.9 g/dL Normal 6.3-8.0 [facility] Comment on above: Order Comment: Speci men Type: BLOOD SPECIMEN [facility] Address: [address] [place] [address] Performed By: #### 2 4362-6 #### [facility] CLIA [id number] [address] [place] [address] [place] Sodium [Moles/Vol] 139 mmol/L Normal 136-144 [facility] Comment on above: Order Comment: Speci men Type: BLOOD SPECIMEN [facility] Address: [address] [place] [address] Performed By: #### 2 4362-6 #### [facility] CLIA [id number] [address] [place] [address] [place] Urea nitrogen [Mass/Vol] 16 mg/dL Normal 7-21 [facility] Comment on above: Order Comment: Speci men Type: BLOOD SPECIMEN [facility] Address: [address] [place] [address] Performed By: #### 2 4362-6 #### [facility] CLIA [id number] [address] [place] [address] [place] TSH SerPl-aCncon 02-15-2023 TSH Qn 1.760 m[IU]/L Normal 0.270-4.200 [facility] Comment on above: Order Comment: Speci men Type: BLOOD SPECIMEN [facility] Address: [address] [place] [address] Result Comment: If t he patient is , TSH reference range varies by gestational period: First Trimester (weeks 9-12): 0.180-2.990 mIU/L Second Trimester: 0.110-3.980 mIU/L Third Trimester: 0.480-4.710 mIU/L Pedro Lim et al. A Practical Approach for the Verifications and Determination of Site- and Trimester-Specific Reference Intervals for Thyroid Function tests in . Thyroid, 2019:29:3:412-420. Jam E, et al. 2017 Guidelines of the [place] Thyroid Association for the Diagnosis and Management of Thyroid Disease during and the . Thyroid, 2017:27:3:315-389. Performed By: #### 2 4362-6 #### [facility] CLIA [id number] [address] [facility] Vit [facility] Cobalamin (Vitamin B12) [Mass/Vol] 1090 pg/mL Normal 232-1245 [facility] Comment on above: Order Comment: Speci men Type: BLOOD SPECIMEN [facility] Address: [address] [place] [address] Performed By: #### 2 4362-6 #### [facility] CLIA [id number] [address] [place] Established Visit (Orthopaed ic Surgery)on 02-10-2023 Established Visit (Orthopaedic Surgery) Diagnoses/Problems Assessed Lumbar radiculopathy, right (724.4) (M54.16) Lumbar pain (724.2) (M54.50) Orders Lumbar pain, Lumbar radiculopathy, right CT L-Spine Post Myelogram; Status:Active; Requested for:[id number]; Patient taking Metformin or Derivatives? : No Radiologist to Determine Optimal Study : Y What are the patient's signs and symptoms? : right lumbar radiculopathy. History of scoliosis s/p thoracolumbar fusion Lumbar radiculopathy, right Xray Myelography Lumbosacral with LP; Status:Active; Requested for:[id number]; Radiologist to Determine Optimal Study : Y What are the patient's signs and symptoms? : right lumbar radiculopathy. History of scoliosis s/p thoracolumbar fusion History of Present Illness Tried to call patient to remind her to get labs before her CT myelogram. Called the numbers listed in EMR. The cell phone number listed is the wrong number and the number listed as home did not go through. Active Problems Problems Lumbar pain (724.2) (M54.50) Lumbar radiculopathy, right (724.4) (M54.16) Pelvic pain in female (625.9) (R10.2) Past Medical History Problems History of Anxiety (300.00) (F41.9) History of attention deficit disorder (V11.8) (Z86.59) Personal history of scoliosis (V13.59) (Z87.39) Had surgery for this in 2010 Family History Father Family history of diabetes mellitus (V18.0) (Z83.3) Family history of malignant neoplasm of breast (V16.3) (Z80.3) Family history of Hypertension, benign Grandmother Family history of diabetes mellitus (V18.0) (Z83.3) Family history of malignant neoplasm of breast (V16.3) (Z80.3) Maternal Grandmother Family history of diabetes mellitus (V18.0) (Z83.3) Maternal Grandfather Family history of diabetes mellitus (V18.0) (Z83.3) Social History Problems Monogamous relationship Never smoker No alcohol use Unemployed, looking for work Allergies Medication No Known Drug Allergies Recorded By: Ayanna Darby; 11/29/2013 9:08:24 AM Current Meds Medication NameInstruction Cyclobenzaprine HCl - 10 MG Oral Tablet Gabapentin 800 MG Oral Tablet MedroxyPROGESTERone Acetate 150 MG/ML Intramuscular Suspension Strattera 100 MG Oral Capsule (Atomoxetine HCl) tiZANidine HCl - 4 MG Oral Tablet Vitamin D (Ergocalciferol) 1.25 MG (23438 UT) Oral Capsule Signatures Electronically signed by : Terrie Brown MD; Mar 11 2023 5:08PM EST (Author) Normal [employer] Initial Visit (Orthopaedic S urgery)on 02-10-2023 Initial Visit (Orthopaedic Surgery) Diagnoses/Problems Assessed Lumbar radiculopathy, right (724.4) (M54.16) Lumbar pain (724.2) (M54.50) Orders Lumbar pain, Lumbar radiculopathy, right CT L-Spine Post Myelogram; Status:Hold For - Scheduling; Requested for:10Feb2023; Patient taking Metformin or Derivatives? : No Radiologist to Determine Optimal Study : Y What are the patient's signs and symptoms? : right lumbar radiculopathy. History of scoliosis s/p thoracolumbar fusion Lumbar radiculopathy, right Xray Myelography Lumbosacral with LP; Status:Hold For - Scheduling; Requested for:10Feb2023; Radiologist to Determine Optimal Study : Y What are the patient's signs and symptoms? : right lumbar radiculopathy. History of scoliosis s/p thoracolumbar fusion Provider Impressions Ms. Hue Titus is a 32yo female history of scoliosis status post thoracolumbar fusion. The end of her construct at L4. She has developed degenerative changes at L4-L5 L5-S1 with disc space narrowing and facet arthrosis. She is otherwise neurologically intact she complains of radicular pain in the right leg particularly at the top of the right foot. No foot drop. X-ray shows that hardware is intact with no signs of loosening or broken hardware. She is undergone conservative treatments with injections and also tried a spinal cord stimulator without any significant relief. She has been on gabapentin which initially did provide relief and now is starting to wear off. I would like for her to obtain a CT myelogram of the lumbar spine to look for possible nerve impingement. She is unable to get an MRI due to all her hardware which will produce a lot of metal artifact. Patient was instructed to follow-up with me in clinic after the CT myelogram is complete. After our discussion, the patient articulated understanding of the plan and felt that all questions had been answered satisfactorily. The patient was pleased with the visit and very appreciative for the care rendered. Please excuse any errors in grammar or translation related to this dictation. Voice recognition software was utilized to prepare this document. Chief Complaint New patient visit for low back pain and right leg foot pain. History of Present Illness Ms. Hue Titus is a 32yo female history of scoliosis as an adolescent and underwent spinal fusion at the age of 15 [facility]. However a year after that surgery she needed a second surgery to extend her fusion down to L4. Her first surgery was April 2005 her second surgery was May 16, 2006. She was doing fine after her second surgery until August 2017 when she started to develop right leg pain particularly in the right calf and foot. Describes as a sharp pain. She kind of ignored it at that time and then around 2019 in 2019 while living in [place] she was seeing pain management who tried caudal injections which did not help. She is also tried multiple medications such as Cymbalta and Lyrica without any relief. She was started on gabapentin which initially did provide relief of her leg pain but now she still has a lot of foot pain. She describes as a burning sensation. She then since moved back to [place] and has been seeing physicians at [facility]. Most of her care is done at [facility]. She was seeing pain management with Dr. Olivares who tried a spinal cord stimulator trial but was unsuccessful because of all the scar tissue in her back they had trouble getting in the needle. After the trial with the spinal cord stimulator she started to develop worsening low back pain. Denies any symptoms down the left leg. Denies any bowel or bladder disturbances or saddle anesthesia. Dates that her pain ranges from a 0 to a 10 out of 10 depending on activity. Usually worse when she is standing or sitting for too long. Of note patient was recently diagnosed with A-fib was supposed to be on Eliquis but was too expensive so she never took it. Instead she was told to take high-dose aspirin which she still has not started taking yet. 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 She does not smoke occasionally drinks alcohol does not follow any routine exercise program. Review of Systems CONSTITUTIONAL: no fatigue, no fever, chills, sweats and no weight change. EYES: no diplopia and no vision loss/change. ENMT: no hearing loss and no dizziness, no ring in the ears, no sinus problems. RESPIRATORY: no cough and no dyspnea. DENTAL: no dental problems, CARDIOVASCULAR: no chest pain and no palpitations. GASTROINTESTINAL: no nausea, no vomiting, no dysphagia and no bleeding, no diarrhea, no stomach problems GENITOURINARY: no hematuria and no urinary frequency. SKIN: no rashes, no nail changes, no skin problems/conditions NEUROLOGICAL: no headaches, no numbness, no paresthesia, no weakness, no tremors ENDORCIN: No thyroid problems. PSYCH: + sleep disturbances, no depression. MUSCULOSKELETAL: no arthritis, no muscle cramps as listed above in history HEMATOLOGIC/LYMPHATIC : + easy bruis (more content not included)... Normal [facility] [employer] No Panel Informationon 02-10 Normal [facility] Work Phone: SPINE, LUMBOSACRAL; MIN 4 EWSon 02-10-2023 SPINE, LUMBOSACRAL; MIN 4 VIEWS Patient Name: HUE TITUS STUDY: SPINE, LUMBOSACRAL MIN 4 VIEWS; 02/10/2023 1:48 pm INDICATION: LUMBAR PAIN M54.50: Lumbar pain. COMPARISON: None. ACCESSION NUMBER(S): [id number] ORDERING CLINICIAN: TERRIE BROWN FINDINGS: Lumbar spine, four views There is posterior spinal fusion extending from the thoracic spine to the L4 level. The proximal extent of the hardware is not included in the field of view. There is moderate AC scoliosis of thoracolumbar spine. There is mild retrolisthesis of L4 on L5. There is severe facet disease and moderate disc space narrowing with osteophytosis at L4-L5 and L5-S1. The hardware is intact IMPRESSION: Postsurgical changes without evidence of hardware failure Mild retrolisthesis of L4 on L5. Severe facet disease and moderate spondylosis at L4-L5 and L5-S1 Electronically signed by: JACQUELINE GLORIA MD [facility] [place] [place] HUE TITUS ([id number]) 1990 F [facility] Date Time Provider Department 02/08/23 3:20 PM CHITRA BURNETT During your visit today, we recorded the following information about you: Pulse Blood pressure Weight Height 71/minute 128/84 55.8 kg 1.702 m Chitra Burnett PA-C 02/08/2023 4:12 PM Signed Subjective HPI Patient here for an urgent appointment. She's accompanied by her boyfriend who is contributing to history. She reports on Tuesday02/05/2023 she developed R sided upper back pain near the inferior aspect of her scapula. Yesterday - pain was 10/10, slightly better today. Pain is worse with deep breaths and moving her R arm particularly if elevating it. No known trauma or overuse. She has maintained her prescribed Gabapentin and Lyrica. She also tried NSAIDs, Baclofen (boyfriend's Rx), topical CBD oil, tylenol and massage. Iglesiaiend wonders if opioids would be an option for treatment. Boyfriend reports it seems to move a bit with where it causes her pain - he also finds that sometimes the massage will help during it but then after the pain returns. Patient with known hx of scoliosis s/p surgery. Has CT Myelogram of T and L spine ordered - has not yet called [place] to schedule. She's concerned if something may be wrong with the hardware of her spine. Review of Systems All other systems reviewed and are negative. BP 128/84 Pulse 71 Ht 5' 7 (1.70m) Wt 123 lb (55.8kg) SpO2 98% LMP 01/12/2023 BMI 19.26 kg/(m2). Objective Physical Exam HENT: Head: Normocephalic and atraumatic. Neck: Thyroid: No thyromegaly. Cardiovascular: Rate and Rhythm: Normal rate and regular rhythm. Heart sounds: Normal heart sounds. No murmur heard. Pulmonary: Effort: Pulmonary effort is normal. Breath sounds: Normal breath sounds. Musculoskeletal: General: No tenderness. Arms: Cervical back: Normal range of motion and neck supple. Comments: Pt notes pain in the area marked in red on image. Mild discomfort noted on palpation of this same area. Pain also worsened with deep breaths and ROM of R arm. Skin: General: Skin is warm and dry. Neurological: Mental Status: She is alert. Motor: Motor function is intact. Gait: Gait is intact. Psychiatric: Mood and Affect: Affect normal. ASSESSMENT/PLAN: 1. Upper back pain on right side - ICD9: 724.5, ICD10: M54.9 Upper back pain particularly at lower aspect of R scapula suddenly on 02/05 worse with deep breaths and ROM of R arm. No known trauma - but does have hardware from previous scoliosis surgery. Failed NSAIDs, Baclofen (boyfriend's Rx), topical CBD oil, tylenol and massage. Already on gabapentin and Lyrica. Discussed likely muscular in etiology particularly considering how ROM of R arm (and thus motion of scapula) affects the pain. Pt concerned for possible hardware issue considering her pain level and acute onset - xray ordered to rule out hardware loosening as etiology though not likely based on location of pain. Recommend stretching. Discussed unless acute finding on xray - I cannot justify need for opioid therapy at this time. Continue with specialist for chronic pain management. Continue with plan of scheduling CT T/L spine as ordered by spine. - XR SCAPULA 2V AP/LAT RIGHT - XR THORACIC GENERAL 3V AP/LAT/SWIMMERS LEA Olivarez-Josh Allergies As of Date: 02/08/2023 (No Known Allergies) Date Reviewed: 02/08/2023 Reviewed by: Bert White MA - Fully Assessed Reason for Visit: Back Pain [Other] Cmt: Started last Tuesday. Right side below shoulder blade. Hurts to lift arm. Hurts to breathe. Concerned with spine due to Scoliosis Primary Visit Diagnosis:Upper back pain on right side [M54.9] Order(s):XR SCAPULA 2V AP/LAT RIGHT [[id number]] Order #: [id number] FUTURE XR THORACIC GENERAL 3V AP/LAT/SWIMMERS [[id number]] Order #: [id number] FUTURE Prescriptions as of 02/08/2023 - dextroamphetamine-amp hetamine (ADDERALL) 10 mg tablet Take 10 mg by mouth every afternoon. - pregabalin (LYRICA) 50 mg capsule Take 1 capsule by mouth three times daily for 30 days. - gabapentin (NEURONTIN) 600 mg tablet Take 2 tablets by mouth three times daily for 30 days. - escitalopram oxalate (LEXAPRO) 10 mg tablet 0.5 tab daily for 1 week then 1 tab daily - cyanocobalamin 1,000 mcg/mL Inject 1,000 mcg intramuscularly once every month. - ADDERALL XR 30 mg 24 hr capsule Take 30 mg by mouth once daily. - metoprolol tartrate, short acting, (LOPRESSOR) 25 mg tablet Take 1 tablet by mouth twice daily. Facility-Administered Medications as of 02/08/2023 - perflutren lipid microspheres 1.3 mL in NaCl (PF) 0.9% 10 mL injection (DEFINITY) - sodium chloride 0.9 % (flush) 10 mL (BD POSIFLUSH) Problem List As Of Date 02/08/2023 Noted Resolved Paroxysmal atrial fibrillation (HCC) [I48.0] 09/27/2022 (more content not included)... Normal [facility] No Panel Informationon 02-08 [facility] XR SCAPULA 2V AP/LAT RTon XR SCAPULA 2V AP/LAT RT * * *Final Report* * * DATE OF EXAM: Feb 08 2023 4:10PM [id number] - XR SCAPULA 2V AP/LAT RT / PROCEDURE REASON: Upper back pain on right side * * * * Physician Interpretation * * * * XR THORACIC 3V AP/LAT/SWIMMERS, XR SCAPULA 2V AP/LAT RT INDICATION: Upper back pain on right side COMPARISON: 12/22/2022 TECHNIQUE: XR THORACIC 3V AP/LAT/SWIMMERS, XR SCAPULA 2V AP/LAT RT RESULT: Unchanged appearance of levoscoliosis centered in the midthoracic spine. Posterior fusion extending from T2 to the lumbar spine. Hardware appears intact. No definite scapular fracture. IMPRESSION: Please see result. Travel Pta: PSCB Transcribe Date/Time: Feb 08 2023 4:22P Dictated by : ASHLEY MIRANDA MD This examination was interpreted and the report reviewed and electronically signed by: ASHLEY MIRANDA MD on Feb 08 2023 4:23PM EST [id number] N Normal [facility] XR THORACIC 3V AP/LAT/SWIMME RSon 02-08-2023 XR THORACIC 3V AP/LAT/SWIMMERS * * *Final Report* * * DATE OF EXAM: Feb 08 2023 4:10PM [id number] - XR THORACIC 3V AP/LAT/SWIMMERS / PROCEDURE REASON: Upper back pain on right side * * * * Physician Interpretation * * * * XR THORACIC 3V AP/LAT/SWIMMERS, XR SCAPULA 2V AP/LAT RT INDICATION: Upper back pain on right side COMPARISON: 12/22/2022 TECHNIQUE: XR THORACIC 3V AP/LAT/SWIMMERS, XR SCAPULA 2V AP/LAT RT RESULT: Unchanged appearance of levoscoliosis centered in the midthoracic spine. Posterior fusion extending from T2 to the lumbar spine. Hardware appears intact. No definite scapular fracture. IMPRESSION: Please see result. Travel Pta: PSCB Transcribe Date/Time: Feb 08 2023 4:22P Dictated by : ASHLEY MIRANDA MD This examination was interpreted and the report reviewed and electronically signed by: ASHLEY MIRANDA MD on Feb 08 2023 4:23PM EST [id number] N Normal [facility] CNOVon 02-04-2023 CNOV Office Visit ([facility] ) HUE TITUS ([id number]) 1990 F T Date Time Provider Department 02/04/23 11:00 AM CHITRA BURNETT During your visit today, we recorded the following information about you: Pulse Blood pressure Weight Height 78/minute 124/82 55.3 kg 1.702 m Chitra Burnett PA-C 02/04/2023 12:34 PM Signed Subjective HPI patient here for an urgent appointment. She reports that last night she began to have significant pain and muscle spasms of her right lower leg particularly lateral ankle. Symptoms are starting to improve this morning but still evident. She felt she was unable to work today due to her amount of pain, lack of sleep last night due to the pain, and muscle spasms. She request a letter for missed work today. 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 She's scheduled to work today - and next shift is 02/07/2023. She reports she tried to submit for FMLA last month - but was told she was not eligible at her new job yet. 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 She's currently followed by Dr Dennis for pain management and Spine. She reports Dr Dennis told her there's nothing additional he can do for her so she didn't think she would need to follow up. She had a CT Myelogram ordered by [facility] - but it was scheduled in [place] as a traditional CT so it was cancelled. After the CT Myelogram - she anticipates then seeing neurosurgery for possible SCS (failed SCS with Dr Dennis's team). She's currently on Gabapentin 600mg 2 po TID and Lyrica 50 mg TID. She reports the current Rx filled are from the prescriber who she saw prior to moving here. She admits she didn't think about who would take over the Rx since she now lives in [place] Review of Systems All other systems reviewed and are negative. BP 124/82 Pulse 78 Ht 5' 7 (1.70m) Wt 122 lb (55.3kg) SpO2 99% LMP 01/12/2023 BMI 19.10 kg/(m2). Objective Physical Exam Constitutional: Comments: Appears thin HENT: Head: Normocephalic and atraumatic. Neck: Thyroid: No thyromegaly. Cardiovascular: Rate and Rhythm: Normal rate and regular rhythm. Heart sounds: Normal heart sounds. No murmur heard. Pulmonary: Effort: Pulmonary effort is normal. Breath sounds: Normal breath sounds. Musculoskeletal: General: No tenderness. Cervical back: Normal range of motion and neck supple. Skin: General: Skin is warm and dry. Neurological: Mental Status: She is alert. Motor: Motor function is intact. Gait: Gait is intact. Gait normal. Comments: Occasional sudden R lower extremity jerking motion Psychiatric: Mood and Affect: Mood and affect normal. ASSESSMENT/PLAN: 1. Neuropathy - ICD9: 355.9, ICD10: G62.9 Chart reviewed. Known chronic pain and neuropathy. Currently followed by PCP, [facility] ([facility]). Compliant with Rx. Worsened symptoms starting last night which also impacted her ability to sleep. Note given for missed work today - pt reports not eligible for FMLA. Advised I will reach out to her PCP as a heads up that it needs to be determined who will take over the Rx of Gabapentin and Lyrica as she will run out of refills from her previous PCP [place]. Pt will call [place] [facility] scheduling to set up the CT myelogram appropriately. Chitra Burnett PA-C Allergies As of Date: 02/04/2023 (No Known Allergies) Date Reviewed: 02/04/2023 Reviewed by: Bert White MA - Fully Assessed Reason for Visit: Needs Work Note [Other] Cmt: Called off today due to Neuropathy. Pt is in a lot of pain. Episodes every 30 minutes. Primary Visit Diagnosis:Neuropathy [G62.9] Prescriptions as of 02/04/2023 - escitalopram oxalate (LEXAPRO) 10 mg tablet 0.5 tab daily for 1 week then 1 tab daily - cyanocobalamin 1,000 mcg/mL Inject 1,000 mcg intramuscularly once every month. - dextroamphetamine-amp hetamine (ADDERALL) 10 mg tablet Take 10 mg by mouth every afternoon. - pregabalin (LYRICA) 50 mg capsule Take 1 capsule by mouth three times daily for 30 days. - gabapentin (NEURONTIN) 600 mg tablet Take 2 tablets by mouth three times daily for 30 days. - escitalopram oxalate (LEXAPRO) 10 mg tablet 0.5 tab daily for 1 week then 1 tab daily - cyanocobalamin 1,000 mcg/mL Inject 1,000 mcg intramuscularly once every month. - ADDERALL XR 30 mg 24 hr capsule Take 30 mg by mouth once daily. - metoprolol tartrate, short acting, (LOPRESSOR) 25 mg tablet Take 1 tablet by mouth twice daily. Facility-Administered Medications as of 02/04/2023 - perflutren lipid microspheres 1.3 mL in NaCl (PF) 0.9% 10 mL injection (DEFINITY) - sodium chloride 0.9 % (flush) 10 mL (BD POSIFLUSH) Problem List As Of Date 02/04/2023 Noted Resolved Paroxysmal atrial fibrillation (HCC) [I48.0] 09/27/2022 Medications Discontinued During This Encounter Prescripti (more content not included)... [facility] CNOVon 02-03-[facility] HUE TITUS ([id number]) 1990 F CHT Date Time Provider Department 02/03/23 3:00 PM ARIA IZQUIERDOGAHIEN During your visit today, we recorded the following information about you: Pulse Blood pressure Weight Height 80/minute 152/89 55.4 kg 1.702 m Last Period 01/12/23 Aria Izquierdo PA-C 02/03/2023 4:11 PM Signed Hue Titus is a 32 year old year old female. Patient presents with boyfriend for control consult. Interested in IUD. Cycles heavy and crampy at beginning, regular. Gained weight on DMPA. Patient's last menstrual period was 01/12/2023. FAMILY HISTORY Problem Relation Age of Onset other (osteoarthritis [Other]) Mother Scoliosis Father Scoliosis Paternal Aunt OB History No obstetric history on file. PAST MEDICAL HISTORY Diagnosis Date ADHD (attention deficit hyperactivity disorder) Ovarian cyst PAF (paroxysmal atrial fibrillation) ([facility]) 07/2022 follows with cardiology Scoliosis SVT, lower extremity ([facility]) 2018 ASA only no anticoagulants PAST SURGICAL HISTORY Procedure Laterality Date OTHER SURGICAL HISTORY (PLEASE SPECIFY) HX 2004,2006 back surgery x2 for scoliosis with marilu placement Current Outpatient Medications Medication Sig dextroamphetamine-amp hetamine (ADDERALL) 10 mg tablet Take 10 mg by mouth every afternoon. pregabalin (LYRICA) 50 mg capsule Take 1 capsule by mouth three times daily for 30 days. gabapentin (NEURONTIN) 600 mg tablet Take 2 tablets by mouth three times daily for 30 days. escitalopram oxalate (LEXAPRO) 10 mg tablet 0.5 tab daily for 1 week then 1 tab daily cyanocobalamin 1,000 mcg/mL Inject 1,000 mcg intramuscularly once every month. ADDERALL XR 30 mg 24 hr capsule Take 30 mg by mouth once daily. miSOPROStol (CYTOTEC) 200 mcg tablet 1 tablet as directed. Take by mouth 2 days prior to appt, and the second pill 8-10 hours prior to ASSURANCE OFFICER appt for cervical dilation. metoprolol tartrate, short acting, (LOPRESSOR) 25 mg tablet Take 1 tablet by mouth twice daily. Current Facility-Administered Medications Medication Dose Route Frequency perflutren lipid microspheres 1.3 mL in NaCl (PF) 0.9% 10 mL injection (DEFINITY) INTRAVENOUS DIRECTED PRN sodium chloride 0.9 % (flush) 10 mL (BD POSIFLUSH) 10 mL INTRAVENOUS DIRECTED PRN ALLERGIES No Known Allergies Social History Social History Narrative Merged History Encounter Portions of this record were documented by the Community Theater Actor. I, Aria Izquierdo, have reviewed this information as documented for accuracy and performed all elements of history taking, and edited the record as necessary. ROS: SEE HPI PE: GENERAL: well-appearing, in no acute distress LUNGS: Normal inspiratory effort ASSURANCE OFFICER: deferred NEURO: Awake, alert and oriented A/P: 32 year old y/o F here for BC consult. 1. Counseling for control regarding intrauterine device (IUD) - Reviewed r/b/a IUDs, pt elects Mirena - INSERT INTRAUTERINE DEVICE Rx Cytotec sent F/U 2wks for placement Will perform WWE at IUD check as she is due. Aria Izquierdo PA-C I spent a total of 30 minutes on the date of the service which included [id number] patient care, completing clinical documentation, counseling and educating the patient/family/caregi hussain, and ordering medications, tests, or procedures. Referring Provider: ASHWINI MATUTE [[id number]] Allergies As of Date: 02/03/2023 (No Known Allergies) Date Reviewed: 02/03/2023 Reviewed by: Aria Izquierdo PA-C - Fully Assessed Reason for Visit: Well Woman [1463] Visit Diagnosis:Counseling for control regarding intrauterine device (IUD) [Z30.09] Order(s):CONSULT TO COMPLIANCE TESTER [9021] Order #: [id number]: 1 miSOPROStol (CYTOTEC) 200 mcg tablet1 tablet as directed. Take by mouth 2 days prior to appt, and the second pill 8-10 hours prior to ASSURANCE OFFICER appt for cervical dilation.Disp: 2 tabletRfl: 0 INSERT INTRAUTERINE DEVICE [[id number]] Order #: [id number] Prescriptions as of 02/03/2023 - miSOPROStol (CYTOTEC) 200 mcg tablet 1 tablet as directed. Take by mouth 2 days prior to appt, and the second pill 8-10 hours prior to ASSURANCE OFFICER appt for cervical dilation. - dextroamphetamine-amp hetamine (ADDERALL) 10 mg tablet Take 10 mg by mouth every afternoon. - pregabalin (LYRICA) 50 mg capsule Take 1 capsule by mouth three times daily for 30 days. - gabapentin (NEURONTIN) 600 mg tablet Take 2 tablets by mouth three times daily for 30 days. - escitalopram oxalate (LEXAPRO) 10 mg tablet 0.5 tab daily for 1 week then 1 tab daily - cyanocobalamin 1,000 mcg/mL Inject 1,000 mcg intramuscularly once every month. - ADDERALL XR 30 mg 24 hr capsule Take 30 mg by mouth once daily. - metoprolol tartrate, short acting, (LOPRESSOR) 25 mg tablet Take 1 tablet by mouth twice daily. Facility-Administered Medications as of (more content not included)... Normal [facility] CNOVon 01-11-2023 CNOV Office Visit ([facility] ) HUE TITUS ([id number]) 1990 F [facility] Date Time Provider Department 01/11/23 2:00 PM ASHWINI MATUTE During your visit today, we recorded the following information about you: Pulse Blood pressure Weight Height 63/minute 124/80 54 kg 1.702 m Last Period 12/12/22 Ashwini Matute PA-C 01/13/2023 2:09 PM Signed This note was created using SocialVest. Subjective Hue Titus is a 32 year old female. HPI Hue Titus is a 32 year old female who presents today to [facility] as a new patient. She has a history of juvenile scoliosis and is currently being treated by both marketing finance specialist and pain management. She is on both gabapentin and lyrica for her chronic back pain and recently failed an attempted spinal cord stimulator procedure. She is awaiting additional CT imaging to determine next course of treatment. 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 She recently moved back to the area after living in [place] for over 5 yrs. She complains of increased stress and depression over the past year. She lost both a close cousin and grandmother within the year and says this has been very tough on her. She and her boyfriend are living with her mother now. She was on lexapro in the past and says it worked well for her. She is agreeable to going back on an anti-depressant. She is also taking Adderall for ADHD and says she has been doing well on her current dose for a few years. She has some trouble sleeping and often wakes up in the middle of the night. She feels tired all the time. She denies any suicidal thoughts and says she has a good support system. She was also diagnosed with paroxysmal a fib last fall. She has had two known episodes of a fib. She sees cardiology for this. She was prescribed Eliquis initially but was not able to afford it so she was advised to take aspirin but admits to missing doses often. She is overdue for pap/pelvic exams. She is sexually active with her boyfriend and not using any contraception. She does not desire at this time. Past Medical History: PAST MEDICAL HISTORY Diagnosis Date ADHD (attention deficit hyperactivity disorder) DVT, lower extremity ([facility]) 2018 PAF (paroxysmal atrial fibrillation) ([facility]) 07/2022 follows with cardiology Scoliosis Past Surgical History: PAST SURGICAL HISTORY Procedure Laterality Date OTHER SURGICAL HISTORY (PLEASE SPECIFY) HX 2005,2006 back surgery x2 for scoliosis with marilu placement Family History: FAMILY HISTORY Problem Relation Age of Onset other (osteoarthritis [Other]) Mother Scoliosis Father Scoliosis Paternal Aunt Social History: Social History Tobacco Use Smoking status: Never Smokeless tobacco: Never Tobacco comments: vapes Substance Use Topics Alcohol use: No Drug use: No Current Medications: dextroamphetamine-amp hetamine (ADDERALL) 10 mg tablet, Take 10 mg by mouth every afternoon., Disp: , Rfl: pregabalin (LYRICA) 50 mg capsule, Take 1 capsule by mouth three times daily for 30 days., Disp: , Rfl: cyanocobalamin 1,000 mcg/mL, Inject 1,000 mcg intramuscularly once every month., Disp: , Rfl: ADDERALL XR 30 mg 24 hr capsule, Take 30 mg by mouth once daily., Disp: , Rfl: metoprolol tartrate, short acting, (LOPRESSOR) 25 mg tablet, Take 1 tablet by mouth twice daily., Disp: 60 tablet, Rfl: 0 gabapentin (NEURONTIN) 600 mg tablet, Take 2 tablets by mouth three times daily for 30 days., Disp: , Rfl: escitalopram oxalate (LEXAPRO) 10 mg tablet, 0.5 tab daily for 1 week then 1 tab daily, Disp: 30 tablet, Rfl: 1 [DISCONTINUED] pregabalin (LYRICA) 50 mg capsule, Take 1 capsule by mouth once daily., Disp: , Rfl: [DISCONTINUED] apixaban (ELIQUIS DVT-PE TREAT 30D START) 5 mg (74 tabs), Take 2 tablets (10 mg) by mouth twice daily for 7 days. Then take 1 tablet (5 mg) by mouth twice daily for 23 days (Patient not taking: Reported on 12/22/2022), Disp: 74 tablet, Rfl: 0 [DISCONTINUED] escitalopram oxalate (LEXAPRO) 10 mg tablet, TAKE 1 TABLET DAILY (Patient not taking: No sig reported), Disp: 90 tablet, Rfl: 2 [DISCONTINUED] gabapentin (NEURONTIN) 800 mg tablet, TAKE 1 TABLET THREE TIMES A DAY (Patient taking differently: 600 mg three times daily.), Disp: 270 tablet, Rfl: 2 perflutren lipid microspheres 1.3 mL in NaCl (PF) 0.9% 10 mL injection (DEFINITY), , INTRAVENOUS, DIRECTED PRN, Jessee Hamilton MD sodium chloride 0.9 % (flush) 10 mL (BD POSIFLUSH), 10 mL, INTRAVENOUS, DIRECTED PRN, Jessee Hamilton MD Allergies: ALLERGIES No Known Allergies Vitals: BP 124/80 Pulse 63 Ht 5' 7 (1.70m) Wt 119 lb (54.0kg) SpO2 98% LMP 12/12/2022 BMI 18.63 kg/(m2). Review of Systems Constitutional: Positive for fatigue. Respiratory: Negative. Cardiovascular: Negative. Gastrointestinal: Nega (more content not included)... Normal [facility] [place] 01-11-2023 [facility] Telephone ([facility]) HUE TITUS ([id number]) 1990 F CHT Date Time Provider Department 01/11/23 [facility] During your visit today, we recorded the following information about you: Yue SALUD Dahl 01/11/2023 3:27 PM Signed Behavioral Health Social Work Progress Note Patient identified for [facility] from: PCP Reason for referral: Resources Behavioral Health Resources: Psychology - talk therapy [facility] encounter type: Telephone Encounter, Intelligent Apps (mytaxi)hart Message Attempts to Outreach: 1 attempt Referral made: Psychology - External Psychology-External referral type: Therapy Reason for external referral: Patient seeking longterm support Final Disposition: Resources given Patient Discharged?: Yes Patient reported that caregiver was able to meet their needs today?: Yes [facility] consult received for anxiety and depression. [facility] placed telephone call at the request of the PCP to discuss behavioral health needs and provide referrals for outpatient support. Patient states she is looking to establish with a therapy provider. Would like telephone number to schedule within [facility] and externally. Will send the following: [facility] Psychiatry and Counseling Central Scheduling Call Center [phone] [facility] ([place]) [phone] [facility] ([place]) Counseling only [phone] [facility] ([place]) Counseling only [phone] [facility] ([place]) Counseling only [phone] [facility] ([place]) [phone] Extension: [phone] Flaco Scott, [facility] ([place]) Counseling only [phone] [facility] [place] ([place]) Counseling only [phone] [facility] [place] ([place]) Counseling only [phone] [facility] ([place]) [phone] [facility] ([place]) [phone] [facility] ([place]) Counseling only [phone] [facility] [place] ([place]) Counseling only [phone] [facility] ([place]) Counseling only [phone] [facility] ([place]/[facility]) [phone] [facility] ([place]) Counseling only [phone] [facility] ([place]) Counseling only [phone] Gary Notizza, [facility]. ([place]) Counseling only [facility] [phone] [facility] ([place]) Counseling only [phone] [facility] ([place]) Counseling only [phone] [facility] ([place]) Counseling only [phone] [facility] ([place]) Counseling only [phone] SALUD Reeves, [facility]- January 11, 2023 Allergies As of Date: 01/11/2023 (No Known Allergies) Date Reviewed: 01/11/2023 Reviewed by: Josh Han - Fully Assessed Reason for Visit: Behavioral Health/Social Work [4126] Prescriptions as of 01/11/2023 - dextroamphetamine-amp hetamine (ADDERALL) 10 mg tablet Take 10 mg by mouth every afternoon. - pregabalin (LYRICA) 50 mg capsule Take 1 capsule by mouth three times daily for 30 days. - gabapentin (NEURONTIN) 600 mg tablet Take 2 tablets by mouth three times daily for 30 days. - escitalopram oxalate (LEXAPRO) 10 mg tablet 0.5 tab daily for 1 week then 1 tab daily - cyanocobalamin 1,000 mcg/mL Inject 1,000 mcg intramuscularly once every month. - ADDERALL XR 30 mg 24 hr capsule Take 30 mg by mouth once daily. - metoprolol tartrate, short acting, (LOPRESSOR) 25 mg tablet Take 1 tablet by mouth twice daily. Facility-Administered Medications as of 01/11/2023 - perflutren lipid microspheres 1.3 mL in NaCl (PF) 0.9% 10 mL injection (DEFINITY) - sodium chloride 0.9 % (flush) 10 mL (BD POSIFLUSH) Problem List As Of Date 01/11/2023 Noted Resolved Paroxysmal atrial fibrillation (HCC) [I48.0] 09/27/2022 Encounter Status:Closed by YUE DAHL on 01/11/23 [facility] 01-07-2023 CNCO Letter Text Normal [facility] CNPNon 12-31-2022 CNPN Telephone ([facility]) HUE TITUS ([id number]) 1990 F CHT Date Time Provider Department 12/31/22 MARCO SLADE During your visit today, we recorded the following information about you: Ivanna Jj RN 01/18/2023 10:57 AM Signed I have called interventional Radiology again and it says the Caregivers are assisting please try your call later. Spoke to Amanda in CT she gave me that same ext was able to get me through though to [facility]. She is going to call patient and get her scheduled for CT Myelogram. The orders do not look wrong to her. Yue Kirby 12/31/2022 3:36 PM Signed Pt calling to schedule her CT scan, however, the scan is not currently listed under active orders on the appointment desk. Please advise if the order needs to be released or re-entered so that patient may be scheduled. Yue Kirby December 31, 2022 3:35 PM Ivanna Jj RN 12/31/2022 3:59 PM Signed I spoke to CT regarding the orders it appears in place. Should be able to schedule. Would try to schedule again. If there is a problem to write down what the issue is. Spoke to patient gave information and she verbalized understanding. Tatum Santos Pss 01/07/2023 8:51 AM Signed Hi. The order for Ct Myelogram thoracic is in epic but it is not dropping so the scan can be scheduled. Maybe (looks like) in the priority and order details Priority is routine but Class looks to be the reason its not dropping. Today appt has been cancelled as she is scheduled incorrectly. Also this Ct scan can not be scheduled at [place]. Thank you Scheduling line [phone] Marco Slade DO 01/07/2023 12:25 PM Signed Addended by: MARCO SLADE on: 01/07/2023 12:25 PM Modules accepted: Orders Ivanna Jj RN 01/07/2023 3:41 PM Addendum Spoke to Ivanna in CT she said everything looks good as far as order for CT Myelogram she is going to send a message to one of her leads to have them call patient to schedule. Inna Carnes [facility] 01/07/2023 3:54 PM Signed Rec'd call from [facility] radiology scheduling re: order for CT myelogram; states that order is active but status is not released so they are unable to schedule; requesting that provider make this order shareable; pls advise Tricia Costa 01/11/2023 3:15 PM Signed Patient would like to schedule her CT's; looks like the orders need to be signed so that appear in Active Requests so we can schedule these appointments. Thank you Ivanna Jj RN 01/12/2023 4:26 PM Signed [facility] for Interventional Radiology is busy asked to call back later. Will call tomorrow. Ivanna Jj RN 01/13/2023 10:55 AM Signed I called CT Myelogram and she said Ivanna is on vacation. Left message on voicemail for nurses at IR for CT Myelogram to call me back. Can also call patient. We are needing to schedule this CT Myelogram. Ivanna Jj RN 01/17/2023 11:50 AM Signed I have called since 0853 it is saying All Caregivers are busy please try your call again for CT Myelogram. Ivanna Jj RN 01/17/2023 3:09 PM Signed I have called interventional Radiology again and it says the Caregivers are assisting please try your call later. Ivanna Jj RN 01/18/2023 10:47 AM Signed I have called interventional Radiology again and it says the Caregivers are assisting please try your call later. Ivanna Jj RN 01/18/2023 11:01 AM Signed Left message on voicemail for patient to call office back or can read [employer] message. Allergies As of Date: 12/31/2022 (No Known Allergies) Date Reviewed: 12/22/2022 Reviewed by: Leola Jansen MA - Fully Assessed Reason for Visit: Scans [867] Primary Visit Diagnosis:Chronic bilateral low back pain with right-sided sciatica [M54.41, G89.29] Other Visit Diagnoses:Juvenile idiopathic scoliosis of thoracolumbar region [M41.115] Arthrodesis status [Z98.1] Order(s):CT MYELOGRAM THORACIC [[id number]] Order #: [id number] IR XR INJ MYELOGRAM [[id number]] Order #: [id number] CT MYELOGRAM LUMBAR [[id number]] Order #: [id number] IR XR INJ MYELOGRAM [[id number]] Order #: [id number] Prescriptions as of 01/18/2023 - dextroamphetamine-amp hetamine (ADDERALL) 10 mg tablet Take 10 mg by mouth every afternoon. - pregabalin (LYRICA) 50 mg capsule Take 1 capsule by mouth three times daily for 30 days. - gabapentin (NEURONTIN) 600 mg tablet Take 2 tablets by mouth three times daily for 30 days. - escitalopram oxalate (LEXAPRO) 10 mg tablet 0.5 tab daily for 1 week then 1 tab daily - cyanocobalamin 1,000 mcg/mL Inject 1,000 mcg intramuscularly once every month. - ADDERALL XR 30 mg 24 hr capsule Take 30 mg by mouth once daily. - metoprolol tartrate, short acting, (LOPRESSOR) 25 mg tablet Take 1 tablet by mouth twice daily. Facility-Administered Medications as of 01/18/2023 - perflutren lipid microspheres 1.3 mL in NaCl (PF) 0.9% 10 mL injection (DEFINITY) - sodium chloride 0.9 % (flush) 10 mL (BD (more content not included)... Normal [facility] Renal function 2000 panelon 12-23-2022 Albumin [Mass/Vol] 4.4 g/dL 3.9 - 4.9 g/dL [facility] Anion gap [Moles/Vol] 9 mmol/L 9 - 18 mmol/L [facility] Calcium [Mass/Vol] 9.4 mg/dL 8.5 - 10. 2 mg/dL [facility] Chloride [Moles/Vol] 102 mmol/L 97 - 10 5 mmol/L [facility] CO2 [Moles/Vol] 28 mmol/L 22 - 30 mmol/L [facility] Creatinine [Mass/Vol] 0.72 mg/dL 0.58 - 0.96 mg/dL [facility] Estimated Glomerular Filtration Rate 115 mL/min/1.73m >=60 mL/min/1.73m [facility] Glucose [Mass/Vol] 82 mg/dL 74 - 99 mg/dL [facility] Phosphate [Mass/Vol] 3.1 mg/dL 2.7 - 4 .8 mg/dL [facility] Potassium [Moles/Vol] 4.4 mmol/L 3.7 - 5.1 mmol/L [facility] Sodium [Moles/Vol] 139 mmol/L 136 - 144 mmol/L [facility] Urea nitrogen [Mass/Vol] 13 mg/dL 7 - 21 mg/dL [facility] CNOVon 12-22-2022 CNOV Office Visit ([facility] ) HUE TITUS ([id number]) 1990 F [facility] Date Time Provider Department 12/22/22 8:00 AM MARCO SLADE During your visit today, we recorded the following information about you: Pulse Respiration Blood pressure Weight 67/minute 16/minute 129/87 50.8 kg Height 1.715 m Marco Slade DO 12/26/2022 9:50 PM Signed [facility] Neurological [place] [facility] Spine Initial Exam SUBJECTIVE HISTORY OF PRESENT ILLNESS: Hue Titus (last name was listed as Jeff upon start of visit) is a 32 year old female who presents with a chief complaint of diffuse back pain. Patient has a long h/o low back pain. She had corrective surgery for scoliosis in 2004 and 2005. Charts show lumbar radicular pain beginning 2016, which she now reports as paresthesias and pain in her right foot diffusely that has been chronic since onset. States she has chronic weakness in right ankle. She states she started having worsening low back pain about 3-4 weeks ago. Patient reports she went to her pain management doctor last week to have a spinal cord stimulator trial, but states the placement was unsuccessful due to scar tissue. She is now seeking neurosurgical evaluation for SCS at [facility]. Denies bowel/bladder incontinence or saddle anesthesia. The pain is currently 5/10. The pain can get to 10/10 at the highest and 0/10 at the lowest. Pain Radiation: As above Aggravating Factors: standing or bending down to do something causes her worsening back pain. If she is seated for too long or standing for too long this increases the burning pain in her right foot. Alleviating Factors: Walking helps with her right foot pain sometimes. Nothing really makes her back pain better she says Pain Ratio: Pain in the back is greater than in the foot Current Treatment: Medications -Gabapentin 600 mg (takes 1200mg TID) - some help -Lyrica 50 mg every day - recently increased to BID but she hasn't increased it yet - some help -Percocet 5-325 mg (14 tablets Rx on 12/15/[address] Dennis) Therapies No recent PT Prior Treatment: Medications Ibuprofen Tylenol Oral steroids Cymbalta 30-60 mg daily Baclofen 20 mg TID CBD ointments Therapies N/A Prior spine interventions: -09/15/21 Dr. Miguel Angel Pinedo: Caudal JEFFERY with catheter to L5 - not much relief -states she had steroid shots in her back years ago with Dr. Dennis Prior spine surgery: -05/16/06 Dr. 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 Manan Garcia at [facility]: T2 to L2 PSF for scoliosis Previously treated by: -Pain Management Dr. Jolly Dennis. -Pain Management Dr. Miguel Angel Pinedo, [facility] in [place] -NSGY Dr. Raymond Sheikh, [facility] in [place] - Rx PT on 02/2022 -Ortho Spine Surgery Dr. Rico Mustafa, [facility] in [place] -NSGY Dr. Shawn Hardin 07/24/21 - no signs of radiculopathy on imaging/EMG, did not recommend surgery; rec SNRB vs SCS. -NSGY Dr. Miguel Angel Allison at [facility] 2005. -NSGY Dr. Manan Garcia at [facility] 2004 PMH: PAF - previously on Eliquis but couldn't afford, then took ASA, now just on Metoprolol, following with [facility] Dr. Hamilton, had 30 day monitor completed showing only sinus arrhythmia. ADHD Anxiety, Depression Migraine B12 and Vitamin D deficiency h/o cancer: no personal history of cancer PSH: See below Social Alcohol: 1-2 cups of whiskey at night Tobacco: states she just stopped vaping Illicit drugs: no Personal life: Moved to [place] in 2014 then back to [place] from [place] in 2021. 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 Higher percentile rankings indicate better function/quality of life. 50th percentile is the average of the general population and indicates half of respondents had a worse score. Depression Screening: PHQ-9 Self-Harm (Item 9) response options: 0 Not at all 1 Several days 2 More than half the days 3 Nearly every day PHQ-9 Levels: 0-4 No - mild depression 5-9 Mild depression 10-14 Moderate depression 15-19 Moderately severe depression 20-27 Severe depression ACTIVE PROBLEM LIST Paroxysmal Atrial Fib (more content not included)... Normal [facility] No Panel Informationon 12-22 [facility] Renal function 2000 panelon 12-22-2022 Albumin [Mass/Vol] 4.4 g/dL Normal 3.9-4.9 [facility] Comment on above: Order Comment: Speci men Type: BLOOD SPECIMEN [facility] Address: [address] [place] [id number] Performed By: #### 2 4362-6 #### [facility] CLIA [id number] [address] [facility] [id number] [place] [address] [place] Anion gap [Moles/Vol] 9 mmol/L Normal 9-18 [facility] Comment on above: Order Comment: Speci men Type: BLOOD SPECIMEN [facility] Address: [address] Performed By: #### 2 4362-6 #### [facility] CLIA [id number] [address] [place] [id number] [place] Calcium [Mass/Vol] 9.4 mg/dL Normal 8.5-10.2 [facility] Comment on above: Order Comment: Speci men Type: BLOOD SPECIMEN [facility] Address: [address] Performed By: #### 2 4362-6 #### [facility] CLIA [id number] [address] [place] [address] [place] Chloride [Moles/Vol] 102 mmol/L Normal 97-105 [facility] Comment on above: Order Comment: Speci men Type: BLOOD SPECIMEN [facility] Address: [address] Performed By: #### 2 4362-6 #### [facility] CLIA [id number] [address] [place] [address] [place] CO2 [Moles/Vol] 28 mmol/L Normal 22-30 [facility] Comment on above: Order Comment: Speci men Type: BLOOD SPECIMEN [facility] Address: [address] [id number] Performed By: #### 2 4362-6 #### [facility] CLIA [id number] [address] [place] [address] [place] Creatinine [Mass/Vol] 0.72 mg/dL Normal 0.58-0.96 [facility] Comment on above: Order Comment: Speci men Type: BLOOD SPECIMEN [facility] Address: [address] Performed By: #### 2 4362-6 #### [facility] CLIA [id number] [address] [facility] ESTIMATED GLOMERULAR FILTRATION RATE 115 mL/min/1.73m??? Normal >=60 [facility] Comment on above: Order Comment: Dada arenas Type: BLOOD SPECIMEN [facility] Address: [address] [place] [address] Result Comment: Anabela mated Glomerular Filtration Rate (eGFR) is calculated using the 2020 CKD-EPI creatinine equation. This equation utilizes serum creatinine, sex, and age as parameters. The creatinine assay has traceable calibration to isotope dilution-mass spectrometry. Refer to KDIGO guidelines for clinical interpretation. In patients with unstable renal function, e.g. those with acute kidney injury, the eGFR may not accurately reflect actual GFR. Performed By: #### 2 4362-6 #### [facility] CLIA [id number] [address] [place] [address] [facility] Glucose [Mass/Vol] 82 mg/dL Normal 74-99 [facility] Comment on above: Order Comment: Dada arenas Type: BLOOD SPECIMEN [facility] Address: [address] [place] [address] Result Comment: The [place] Diabetes Association (ADA) provides guidance for cutoff values for fasting glucose and random glucose. The ADA defines fasting as no caloric intake for at least 8 hours. Fasting plasma glucose results between 100 to 125 mg/dL indicate increased risk for diabetes (prediabetes). Fasting plasma glucose results greater than or equal to 126 mg/dL meet the criteria for diagnosis of diabetes. In the absence of unequivocal hyperglycemia, results should be confirmed by repeat testing. In a patient with classic symptoms of hyperglycemia or hyperglycemic crisis, random plasma glucose results greater than or equal to 200 mg/dL meet the criteria for diagnosis of diabetes. Reference: Standards of Medical Care in Diabetes 2016, [place] Diabetes Association. Diabetes Care. 2016.39(Suppl 1). Performed By: #### 2 4362-6 #### [facility] CLIA [id number] [facility] [place] [address] [place] Phosphate [Mass/Vol] 3.1 mg/dL Normal 2.7-4.8 [facility] Comment on above: Order Comment: Speci men Type: BLOOD SPECIMEN [facility] Address: [address] [place] [address] Performed By: #### 2 4362-6 #### [facility] CLIA [id number] [address] [place] [address] [place] Potassium [Moles/Vol] 4.4 mmol/L Normal 3.7-5.1 [facility] Comment on above: Order Comment: Speci men Type: BLOOD SPECIMEN [facility] Address: [address] [place] [address] Performed By: #### 2 4362-6 #### [facility] CLIA [id number] [address] [place] [address] [place] Sodium [Moles/Vol] 139 mmol/L Normal 136-144 [facility] Comment on above: Order Comment: Speci men Type: BLOOD SPECIMEN [facility] Address: [address] [place] [address] Performed By: #### 2 4362-6 #### [facility] CLIA [id number] [address] [place] [address] [place] Urea nitrogen [Mass/Vol] 13 mg/dL Normal 7-21 [facility] Comment on above: Order Comment: Speci men Type: BLOOD SPECIMEN [facility] Address: [address] [place] [address] Performed By: #### 2 4362-6 #### [facility] CLIA [id number] [address] [place] [address] [place] CNOVon 09-27-2022 CNOV Office Visit (CARDAV ) HUE AGUILAR ([id number]) 1990 F CHT Date Time Provider Department 09/27/22 9:00 AM JESSEE HAMILTON During your visit today, we recorded the following information about you: Pulse Blood pressure Weight Height 87/minute 110/78 50.3 kg 1.702 m Last Period 09/15/22 Jessee Hamilton MD 09/27/2022 9:41 AM Signed PRIMARY CARE PHYSICIAN: To use this Smartlink, specify the provider ID whose address you want to display, e.g., .PROVADDR[1 (where 1 is the provider ID). REFERRING PHYSICIAN: No referring provider defined for this encounter. CHIEF COMPLAINT: New onset atrial fibrillation HISTORY OF PRESENT ILLNESS: Recent ER visit with palpitations: atrial fibrillation with rapid ventricular response. Since then very short lasting of palpitations at rest. No associated symptoms. PAST CARDIAC HISTORY: See above and below. PAST MEDICAL HISTORY Diagnosis Date ADHD (attention deficit hyperactivity disorder) Scoliosis Unspecified essential hypertension PAST SURGICAL HISTORY Procedure Laterality Date OTHER SURGICAL HISTORY (PLEASE SPECIFY) HX 2004,2005 back surgery x2 for scoliosis with marilu placement MEDICATIONS: ADDERALL XR 30 mg 24 hr capsuleTake 30 mg by mouth once daily.Disp: Rfl: apixaban (ELIQUIS DVT-PE TREAT 30D START) 5 mg (74 tabs)Take 2 tablets (10 mg) by mouth twice daily for 7 days. Then take 1 tablet (5 mg) by mouth twice daily for 23 daysDisp: 74 tabletRfl: 0 metoprolol tartrate, short acting, (LOPRESSOR) 25 mg tabletTake 1 tablet by mouth twice daily.Disp: 60 tabletRfl: 0 gabapentin (NEURONTIN) 800 mg tabletTAKE 1 TABLET THREE TIMES A DAYDisp: 270 tabletRfl: 2 (Patient taking differently: 600 mg three times daily.) escitalopram oxalate (LEXAPRO) 10 mg tabletTAKE 1 TABLET DAILYDisp: 90 tabletRfl: 2 (Patient not taking: Reported on 09/27/2022) REVIEW OF SYSTEMS: ROS: As above, remainder of 14 point review of systems elicited and otherwise unremarkable. PHYSICAL EXAMINATION: Blood Pressure 110/78 Pulse 87 Height 170.2 cm (5' 7 ) Weight 50.3 kg (111 lb) Last Menstrual Period 09/15/2022 Oxygen Saturation 99% Body Mass Index 17.39 kg/m? General: Well appearing, in no acute distress. Skin: No clubbing, no cyanosis. Neck: No jugular venous distention, no carotid bruits; carotids have a normal upstroke. Lungs: Clear to auscultation bilaterally, no wheezing or rhonchi. Heart: Regular rhythm, PMI not displaced, no RV heave. Normal S1 and S2. No S3, no S4, murmurs, gallop or rub. Abdomen: Soft, nontender, bowel sounds normal, no bruits. Extremities: No peripheral edema, no clubbing or cyanosis. Normal pulses bilaterally. Neuro: Oriented to person, place and time, alert, cooperative. CARDIOVASCULAR MEDICINE TESTING: WBC (k/uL) Date Value 07/23/2022 7.61 Hemoglobin (g/dL) Date Value 07/23/2022 13.0 Hematocrit (%) Date Value 07/23/2022 38.8 Platelet Count (k/uL) Date Value 07/23/2022 347 Sodium (mmol/L) Date Value 07/23/2022 139 Potassium (mmol/L) Date Value 07/23/2022 3.6 CO2 (mmol/L) Date Value 07/23/2022 29 BUN (mg/dL) Date Value 07/23/2022 13 Creatinine (mg/dL) Date Value 07/23/2022 0.84 Glucose (mg/dL) Date Value 07/23/2022 55 Magnesium (mg/dL) Date Value 07/23/2022 2.1 No results found for: CK, MB, TROPT No results found for: CHOL, HDL, LDL, TG No results found for: HBA1C I have personally reviewed the Electrocardiogram and Laboratory Testing. IMPRESSION/PLAN: Probably paroxysmal atrial fibrillation, with spontaneous conversion into normal sinus rhythm. [id number] 0 based on the information we have so far. Will obtain a 30-day event monitor and obtain an echocardiogram. Slightly low potassium at the time of her symptoms: Patient encouraged to eat food high on potassium. I appreciate the opportunity of partaking in the care of Hue Aguilar and look forward to following her along with you in the future. CONTACT INFORMATION: Jessee Hamilton M.D. Staff Entry Level Account [facility] [place] [address] [facility] [place] [address] Jessee Hamilton MD 09/27/2022 9:32 AM Addendum Please, follow up with me after the echocardiogram and event monitor to discuss results. Please, see me as scheduled, or sooner should symptoms appear or worsen. Carlyn Weber LPN 09/27/2022 9:31 AM Signed Boat Hop present: For cardiology exam with Dr Corky Weber LPN Allergies As of Date: 09/27/2022 (No Known Allergies) Date Reviewed: 09/27/2022 Reviewed by: Carlyn Weber LPN - Fully Assessed Reason for Visit: CARD New Patient Consult [1228] Primary Visit Diagnosis:Palpitation s [R00.2] Other Visit Diagnosis:Paroxysmal atrial fibrillation (HCC) [I48.0] Order(s):ECG COMPLETE [ECG01] Order #: [id number]. #:[id number] (more content not included)... Normal [facility] [id number] 09-27-2022 ECG01 Ventricular Rate : 8 7 BPM Atrial Rate : 87 BPM P-R Interval : 140 ms QRS Duration : 86 ms Q-T Interval : 358 ms QTC Calculation(Bazett) : 430 ms Calculated P Sharps : 20 degrees Calculated R Sharps : 88 degrees Calculated T Sharps : 63 degrees NORMAL SINUS RHYTHM WITH SINUS ARRHYTHMIA NONSPECIFIC ST AND T WAVE ABNORMALITY ABNORMAL ECG Confirmed by DAVID PACE MD ([id number]) on 10/05/2022 8:28:01 AM NAME : HUE AGUILAR PID : [id number] : 1990 Gender : Female Race : ORD : Procedure Date : Sep 27 2022 09:14:23 Edit Date : Oct 05 2022 08:28:03 Diagnosis: NORMAL SINUS RHYTHM WITH SINUS ARRHYTHMIA NONSPECIFIC ST AND T WAVE ABNORMALITY ABNORMAL ECG Confirmed by DAVID PACE MD ([id number]) on 10/05/2022 8:28:01 AM Test Reason : Location : 192 : AVCRD Overread By : DAVID PACE MD Edited By : DAVID PACE MD Referred By : JESSEE HAMILTON Acquired by : GWEN [facility] Harrison 09-15-2022 CNPN Telephone (CARDAV) HUE AGUILAR ([id number]) 1990 F T Date Time Provider Department 09/15/22 LIANG BUENROSTRO During your visit today, we recorded the following information about you: Evens Zamora MA 09/15/2022 1:20 PM Signed Received OV notes from [facility], requesting pt be scheduled as soon as possible. Pt already scheduled with Dr. Hamilton 09/27/2022. Sent for scanning. Allergies As of Date: 09/15/2022 (No Known Allergies) Date Reviewed: 07/23/2022 Reviewed by: Garry Haro, SATISH - Fully Assessed Reason for Visit: Received Outside Medical Records [3570] Prescriptions as of 09/15/2022 - apixaban (ELIQUIS DVT-PE TREAT 30D START) 5 mg (74 tabs) Take 2 tablets (10 mg) by mouth twice daily for 7 days. Then take 1 tablet (5 mg) by mouth twice daily for 23 days - apixaban (ELIQUIS) 5 mg tab(s) Take 1 tablet by mouth twice daily. - metoprolol tartrate, short acting, (LOPRESSOR) 25 mg tablet Take 1 tablet by mouth twice daily. - escitalopram oxalate (LEXAPRO) 10 mg tablet TAKE 1 TABLET DAILY - STRATTERA 100 mg capsule TAKE 1 CAPSULE DAILY IN THE MORNING - VITAMIN D 50,000 unit capsule TAKE 1 CAPSULE ONCE A WEEK - escitalopram oxalate (LEXAPRO) 10 mg tablet Take 1 tablet by mouth once daily. - gabapentin (NEURONTIN) 800 mg tablet TAKE 1 TABLET THREE TIMES A DAY Problem List As Of Date: 09/15/2022 (None) Encounter Status:Closed by EVENS ZAMORA on 09/15/22 [facility] CBC W Auto Differential pane l (Bld)on 07-24-2022 Basophils (Bld) [#/Vol] 0.04 10*3/uL Normal <0.11 [facility] Comment on above: Order Comment: Speci men Type: BLOOD SPECIMEN [facility] Address: [address] [address] Performed By: #### 5 7021-8 #### [facility] CLIA [id number] [address] [place] [address] [place] Basophils/100 WBC (Bld) 0.5 % Normal [facility] Comment on above: Order Comment: Speci men Type: BLOOD SPECIMEN [facility] Address: [address] [address] Performed By: #### 5 7021-8 #### [facility] [place] [id number] [address] [place] [address] [place] Differential cell count method Nom (Bld) Auto Normal [facility] Comment on above: Order Comment: Speci men Type: BLOOD SPECIMEN [facility] Address: [address] [address] Performed By: #### 5 7021-8 #### [facility] IA [id number] [address] [place] [address] [place] Eosinophils (Bld) [#/Vol] 0.14 10*3/uL Normal <0.46 [facility] Comment on above: Order Comment: Speci men Type: BLOOD SPECIMEN [facility] Address: [address] [address] Performed By: #### 5 7021-8 #### [facility] [place] [id number] [address] [place] Eosinophils/100 WBC (Bld) 1.8 % Normal [facility] Comment on above: Order Comment: Speci men Type: BLOOD SPECIMEN [facility] Address: [address] [address] Performed By: #### 5 7021-8 #### [facility] IA [id number] [address] [place] [address] [place] Erythrocyte distribution width (RBC) [Ratio] 12.9 % Normal 11.5-15.0 [facility] Comment on above: Order Comment: Speci men Type: BLOOD SPECIMEN [facility] Address: [address] [address] Performed By: #### 5 7021-8 #### [facility] IA [id number] [address] [place] [address] [place] Hematocrit (Bld) [Volume fraction] 38.8 % Normal 36.0-46.0 [facility] Comment on above: Order Comment: Speci men Type: BLOOD SPECIMEN [facility] Address: [address] [place] [address] Performed By: #### 5 7021-8 #### [facility] IA [id number] [place] [address] [place] Hemoglobin (Bld) [Mass/Vol] 13.0 g/dL Normal 11.5-15.5 [facility] Comment on above: Order Comment: Speci men Type: BLOOD SPECIMEN [facility] Address: [address] [place] [address] Performed By: #### 5 7021-8 #### [facility] IA [id number] [address] [place] [address] [place] Immature granulocytes (Bld) [#/Vol] 10*3/uL Normal <0.10 [facility] Comment on above: Order Comment: Speci men Type: BLOOD SPECIMEN [facility] Address: [address] [place] [address] Performed By: #### 5 7021-8 #### [facility] IA [id number] [address] [place] [address] [place] Immature granulocytes/100 WBC (Bld) 0.3 % Normal [facility] Comment on above: Order Comment: Speci men Type: BLOOD SPECIMEN [facility] Address: [address] [address] Performed By: #### 5 7021-8 #### [facility] IA [id number] [address] [place] Lymphocytes (Bld) [#/Vol] 3.16 10*3/uL Normal 1.00-4.00 [facility] Comment on above: Order Comment: Speci men Type: BLOOD SPECIMEN [facility] Address: [address] [address] Performed By: #### 5 7021-8 #### [facility] IA [id number] [address] [place] [address] [place] Lymphocytes/100 WBC (Bld) 41.5 % Normal [facility] Comment on above: Order Comment: Speci men Type: BLOOD SPECIMEN [facility] Address: [address] [address] Performed By: #### 5 7021-8 #### [facility] IA [id number] [address] [place] [address] [place] MCH (RBC) [Entitic mass] 30.0 pg Normal 26.0-34.0 [facility] Comment on above: Order Comment: Speci men Type: BLOOD SPECIMEN [facility] Address: [address] [address] Performed By: #### 5 7021-8 #### [facility] IA [id number] [address] [place] [address] [place] MCHC (RBC) [Mass/Vol] 33.5 g/dL Normal 30.5-36.0 [facility] Comment on above: Order Comment: Speci men Type: BLOOD SPECIMEN [facility] Address: [address] [address] Performed By: #### 5 7021-8 #### [facility] IA [id number] [address] [place] [address] [place] MCV (RBC) [Entitic vol] 89.6 fL Normal 80.0-100.0 [facility] Comment on above: Order Comment: Speci men Type: BLOOD SPECIMEN [facility] Address: [address] Performed By: #### 5 7021-8 #### [facility] CLIA [id number] [address] [place] [address] [place] Monocytes (Bld) [#/Vol] 0.88 10*3/uL High <0.87 [facility] Comment on above: Order Comment: Speci men Type: BLOOD SPECIMEN [facility] Address: [address] [address] Performed By: #### 5 7021-8 #### [facility] IA [id number] [address] [place] [address] [place] Monocytes/100 WBC (Bld) 11.6 % Normal [facility] Comment on above: Order Comment: Speci men Type: BLOOD SPECIMEN [facility] Address: [address] Performed By: #### 5 7021-8 #### [facility] IA [id number] [address] [place] [address] [place] Neutrophils (Bld) [#/Vol] 3.37 10*3/uL Normal 1.45-7.50 [facility] Comment on above: Order Comment: Speci men Type: BLOOD SPECIMEN [facility] Address: [address] Performed By: #### 5 7021-8 #### [facility] CLIA [id number] [address] [place] [address] [place] Neutrophils/100 WBC (Bld) 44.3 % Normal [facility] Comment on above: Order Comment: Speci men Type: BLOOD SPECIMEN [facility] Address: [address] Performed By: #### 5 7021-8 #### [facility] CLIA [id number] [address] [place] [address] [place] Nucleated RBC (Bld) [#/Vol] 10*3/uL Normal <0.01 [facility] Comment on above: Order Comment: Speci men Type: BLOOD SPECIMEN [facility] Address: [address] [address] Performed By: #### 5 7021-8 #### [facility] IA [id number] [address] [place] [address] [place] Nucleated RBC/100 WBC (Bld) [Ratio] 0.0 /100 WBC Normal [facility] Comment on above: Order Comment: Speci men Type: BLOOD SPECIMEN [facility] Address: [address] [address] Performed By: #### 5 7021-8 #### [facility] IA [id number] [address] [place] [address] [place] Platelet mean volume (Bld) [Entitic vol] 9.0 fL Normal 9.0-12.7 [facility] Comment on above: Order Comment: Speci men Type: BLOOD SPECIMEN [facility] Address: [address] [address] Performed By: #### 5 7021-8 #### [facility] IA [id number] [address] [place] [address] [place] Platelets (Bld) [#/Vol] 347 10*3/uL Normal 150-400 [facility] Comment on above: Order Comment: Speci men Type: BLOOD SPECIMEN [facility] Address: [address] [address] Performed By: #### 5 7021-8 #### [facility] IA [id number] [address] [place] [address] [place] RBC (Bld) [#/Vol] 4.33 10*6/uL Normal 3.90-5.20 [facility] Comment on above: Order Comment: Speci men Type: BLOOD SPECIMEN [facility] Address: [address] [address] Performed By: #### 5 7021-8 #### [facility] IA [id number] [address] [place] [address] [place] [facility] WBC (Bld) [#/Vol] 7.61 10*3/uL Normal 3.70-11.00 [facility] Comment on above: Order Comment: Speci men Type: BLOOD SPECIMEN [facility] Address: [address] [address] Performed By: #### 5 7021-8 #### [facility] CLIA [id number] [place] [address] [facility] Comprehensive metabolic 2000 panelon 07-24-2022 Albumin [Mass/Vol] 4.2 g/dL Normal 3.9-4.9 [facility] Comment on above: Order Comment: Speci men Type: BLOOD SPECIMENOrdering Facility: [facility] Address: [address] [address] Performed By: #### 3 040-3, 29689-8, 99293-8, 3016-3 ####[facility] [id number] [place] [address] [place] ALP [Catalytic activity/Vol] 49 U/L Normal 34-123 [facility] Comment on above: Order Comment: Speci men Type: BLOOD SPECIMENOrdering Facility: [facility] Address: [address] [address] Performed By: #### 3 040-3, 90037-5, 27897-4, 3016-3 ####[facility]ORYCLIA [id number] [place] [address] [facility] ALT [Catalytic activity/Vol] 11 U/L Normal 7-38 [facility] Comment on above: Order Comment: Speci men Type: BLOOD SPECIMENOrdering Facility: [facility] Address: [address] [address] Performed By: #### 3 040-3, 54120-5, 34862-0, 3016-3 ####[facility]ORYCLIA [id number] [facility] [place] [address] [place] Anion gap [Moles/Vol] 7 mmol/L Low 9-18 [facility] Comment on above: Order Comment: Speci men Type: BLOOD SPECIMENOrdering Facility: [facility] Address: [address] [place] [address] Performed By: #### 3 040-3, 79133-7, 19004-9, 3015-3 ####[facility]ORYCLIA [id number] [place] [address] [place] AST [Catalytic activity/Vol] 14 U/L Normal 13-35 [facility] Comment on above: Order Comment: Speci men Type: BLOOD SPECIMENOrdering Facility: [facility] Address: [address] [place] [address] Performed By: #### 3 040-3, , 10674-6, 3015-3 ####[facility] [id number] [place] [address] [place] Bilirubin [Mass/Vol] 0.3 mg/dL Normal 0.2-1.3 [facility] Comment on above: Order Comment: Speci men Type: BLOOD SPECIMENOrdering Facility: [facility] Address: [address] [place] [address] Performed By: #### 3 040-3, 36631-7, 20959-1, 3015-3 ####[facility] [id number] [facility] [place] [address] [place] Calcium [Mass/Vol] 9.3 mg/dL Normal 8.5-10.2 [facility] Comment on above: Order Comment: Speci men Type: BLOOD SPECIMENOrdering Facility: [facility] Address: [address] [place] [address] Performed By: #### 3 040-3, 62070-0, 64704-8, 6-3 ####[facility]ORYIA [id number] [place] [address] [place] Chloride [Moles/Vol] 103 mmol/L Normal 97-105 [facility] Comment on above: Order Comment: Speci men Type: BLOOD SPECIMENOrdering Facility: [facility] Address: [address] [place] [address] Performed By: #### 3 040-3, 76756-2, 05232-0, 3016-3 ####[facility]ORY[facility] [id number] [place] [address] [place] CO2 [Moles/Vol] 29 mmol/L Normal 22-30 [facility] Comment on above: Order Comment: Speci men Type: BLOOD SPECIMENOrdering Facility: [facility] Address: [address] [place] [address] Performed By: #### 3 040-3, 77762-4, 01496-1, 3016-3 ####[facility]ORYIA [id number] [place] [id number] [place] Creatinine [Mass/Vol] 0.84 mg/dL Normal 0.58-0.96 [facility] Comment on above: Order Comment: Speci men Type: BLOOD SPECIMENOrdering Facility: [facility] Address: [address] [place] [address] Performed By: #### 3 040-3, 28807-6, 20796-6, 3016-3 ####[facility] [id number] [address] [place] [id number] [place] ESTIMATED GLOMERULAR FILTRATION RATE 95 mL/min/1.73m??? Normal >=60 [facility] Comment on above: Order Comment: Speci men Type: BLOOD SPECIMENOrdering Facility: [facility] Address: [address] [place] [address] Result Comment: Anabela mated Glomerular Filtration Rate (eGFR) is calculated using the 2020 CKD-EPI creatinine equation. This equation utilizes serum creatinine, sex, and age as parameters. The creatinine assay has traceable calibration to isotope dilution-mass spectrometry. Refer to KDIGO guidelines for clinical interpretation. In patients with unstable renal function, e.g. those with acute kidney injury, the eGFR may not accurately reflect actual GFR. Performed By: #### 3 040-3, , , 3 ####[facility]ATORYCLIA [id number] [place] [address] [place] Glucose [Mass/Vol] 55 mg/dL Low 74-99 [facility] Comment on above: Order Comment: Dada arenas Type: BLOOD SPECIMENOrdering Facility: [facility] Address: [address] [id number] Result Comment: The [place] Diabetes Association (ADA) provides guidance for cutoff values for fasting glucose and random glucose. The ADA defines fasting as no caloric intake for at least 8 hours. Fasting plasma glucose results between 100 to 125 mg/dL indicate increased risk for diabetes (prediabetes). Fasting plasma glucose results greater than or equal to 126 mg/dL meet the criteria for diagnosis of diabetes. In the absence of unequivocal hyperglycemia, results should be confirmed by repeat testing. In a patient with classic symptoms of hyperglycemia or hyperglycemic crisis, random plasma glucose results greater than or equal to 200 mg/dL meet the criteria for diagnosis of diabetes. Reference: Standards of Medical Care in Diabetes 2016, [place] [employer] Association. Diabetes Care. 2016.39(Suppl 1). Performed By: #### 3 040-3, , , 3015-11 ####[facility]ATORYCLIA [id number] [place] [address] [place] Potassium [Moles/Vol] 3.6 mmol/L Low 3.7-5.1 [facility] Comment on above: Order Comment: Dada arenas Type: BLOOD SPECIMENOrdering Facility: [facility] Address: [address] [place] [address] Performed By: #### 3 040-3, , , 3 ####[facility]ATORYCLIA [id number] [place] [address] [place] Protein [Mass/Vol] 6.9 g/dL Normal 6.3-8.0 [facility] Comment on above: Order Comment: Speci men Type: BLOOD SPECIMENOrdering Facility: [facility] Address: [address] Performed By: #### 3 040-3, 84537-3, 42852-5, 6-3 ####[facility]ATORYCLIA [id number] [place] [address] [place] Sodium [Moles/Vol] 139 mmol/L Normal 136-144 [facility] Comment on above: Order Comment: Speci men Type: BLOOD SPECIMENOrdering Facility: [facility] Address: [address] [address] Performed By: #### 3 040-3, 38028-6, 83105-7, 6-3 ####[facility]ATORYCLIA [id number] [place] [address] [place] Urea nitrogen [Mass/Vol] 13 mg/dL Normal 7-21 [facility] Comment on above: Order Comment: Speci men Type: BLOOD SPECIMENOrdering Facility: [facility] Address: [address] [address] Performed By: #### 3 040-3, 15306-5, 05074-4, 6-3 ####[facility]ATORYCLIA [id number] [place] [address] [place] D dimer FEU PPP-mCncon 07-24 Fibrin D-dimer FEU (PPP) [Mass/Vol] <190 Normal <500 [facility] Comment on above: Order Comment: Speci men Type: BLOOD SPECIMEN [facility] Address: [address] [address] Performed By: #### 4 8065-7 #### [facility] CLIA [id number] [place] [address] [place] ECG COMPLETEon 07-24-2022 ECG COMPLETE Ventricular Rate : 8 8 BPM Atrial Rate : 197 BPM QRS Duration : 100 ms Q-T Interval : 367 ms QTC Calculation(Bazett) : 444 ms Calculated R Sharps : 81 degrees Calculated T Sharps : 81 degrees Atrial fibrillation RSR' in V1 or V2, probably normal variant Nonspecific T abnrm, anterolateral leads Abnormal ECG 401 no stemi Confirmed by BEN DIAZ MD ([id number]), newspaper editor managing Beatriz Ferguson ([id number]) on 07/24/2022 2:29:25 PM NAME : HUE AGUILAR PID : [id number] : 1990 Gender : Female Race : Unknown ORD : [id number] Procedure Date : Jul 24 2022 04:01:09 Edit Date : Jul 24 2022 14:29:26 Diagnosis: Atrial fibrillation RSR' in V1 or V2, probably normal variant Nonspecific T abnrm, anterolateral leads Abnormal ECG 401 no stemi Confirmed by BEN DIAZ MD ([id number]), newspaper editor managing Beatriz Ferguson ([id number]) on 07/24/2022 2:29:25 PM Test Reason : Chest Pain Location : 302 : ED AVED-14 Overread By : BEN DIAZ MD Edited By : Beatriz Ferguson Referred By : , Acquired by : [id number], [facility] ED NOTEon 07-24-2022 ED NOTE HNO ID: [id number] Author: Brittni Fierro RN Service: ? Author Type: Registered Nurse Type: ED Notes Filed: 07/24/2022 5:12 AM Note Text: Pt given instructions on discharge, medication, and follow-up. Pt educated on when to return to the ED with worsening of symptoms. Pt verbalized understanding with no further questions. Saline lock D/C. Pt ambulated with a steady gait at discharge. Pt discharged home with family. [facility] ED NOTE HNO ID: [id number] Author: Kelli Michel RN Service: ? Author Type: Registered Nurse Type: ED Notes Filed: 07/24/2022 2:58 AM Note Text: Ambulatory to bathroom with steady gait. Attempting urine collection. [facility] ED NOTE HNO ID: [id number] Author: Marjorie Lopez RN Service: ? Author Type: Registered Nurse Type: ED Notes Filed: 07/24/2022 2:36 AM Note Text: See downtime forms. [facility] ED NOTE HNO ID: [id number] Author: Kelli Michel RN Service: ? Author Type: Registered Nurse Type: ED Notes Filed: 07/23/2022 11:14 PM Note Text: Xray at bedside. [facility] ED NOTE HNO ID: [id number] Author: Garry Haro RN Service: Nursing Author Type: Registered Nurse Type: ED Notes Filed: 07/23/2022 10:50 PM Note Text: Pt states palpitations today Plan of care -Monitor Patient's Vital Signs -Monitor pain -Maintain patient safety and privacy -Provide comfort measures as needed -Call light in place -Siderails up, bed in locked and low position. [facility] ED PROV NOTEon 07-24-2022 ED PROV NOTE HNO ID: [id number] Author: Ben Diaz DO Service: Emergency Medicine Author Type: Physician Type: ED Provider Notes Filed: 07/24/2022 4:22 AM Note Text: ED Provider Note Patient Name: Hue Aguilar : 1990 SERVICE DATE: 07/23/22 History Patient presents with: Palpitations This is a 32 years old female patient presented to the emergency department with a chief complaint of palpitation. Patient states her palpitations started around 1415, denies any nausea, vomiting, headache, lightheadedness, dizziness, chest pain, shortness of breath, weakness, numbness, recent diarrhea, abdominal pain, or urinary symptoms. Patient denies any recent viral illness or infection. Past medical history: Denies Past surgical history: Denies Family history: Denies Social history: Denies smoking, denies alcohol use, denies any drug use Allergy: Denies. History reviewed. No pertinent past medical history. History reviewed. No pertinent surgical history. No family history on file. Social History Tobacco Use Smoking status: Not on file Smokeless tobacco: Not on file Substance and Sexual Activity Alcohol use: Not on file Drug use: Not on file Sexual activity: Not on file ALLERGIES No Known Allergies Review of Systems Constitutional: Negative for activity change, appetite change, chills, diaphoresis, fatigue and fever. HENT: Negative for congestion, drooling, ear pain, sinus pain, sneezing, sore throat, trouble swallowing and voice change. Eyes: Negative for photophobia, discharge, redness and visual disturbance. Respiratory: Negative for apnea, cough, choking, chest tightness, shortness of breath, wheezing and stridor. Cardiovascular: Positive for palpitations. Negative for chest pain and leg swelling. Gastrointestinal: Negative. Endocrine: Negative for cold intolerance, heat intolerance, polydipsia, polyphagia and polyuria. Genitourinary: Negative for decreased urine volume, dysuria, flank pain, frequency and urgency. Musculoskeletal: Negative for back pain, gait problem, neck pain and neck stiffness. Skin: Negative for color change, pallor and rash. Allergic/Immunologic: Negative for environmental allergies. Neurological: Negative for dizziness, seizures, syncope, facial asymmetry, weakness, light-headedness, numbness and headaches. Hematological: Does not bruise/bleed easily. Psychiatric/Behaviora l: Negative for agitation, behavioral problems, confusion, self-injury and suicidal ideas. The patient is not nervous/anxious. Physical Exam Vitals [07/23/22 2251] BP Pulse Temp Temp src Resp SpO2 Weight Height 144/76 67 36.9 ?C (98.5 ?F) Temporal 18 100 % -- -- Physical Exam Vitals and nursing note reviewed. Constitutional: General: She is not in acute distress. Appearance: She is well-developed. She is not diaphoretic. HENT: Head: Normocephalic and atraumatic. Right Ear: External ear normal. Left Ear: External ear normal. Nose: Nose normal. Mouth/Throat: Pharynx: No oropharyngeal exudate. Eyes: General: No scleral icterus. Right eye: No discharge. Left eye: No discharge. Conjunctiva/sclera: Conjunctivae normal. Pupils: Pupils are equal, round, and reactive to light. Neck: Thyroid: No thyromegaly. Vascular: No JVD. Trachea: No tracheal deviation. Cardiovascular: Rate and Rhythm: Tachycardia present. Rhythm irregular. Heart sounds: Normal heart sounds. No murmur heard. Pulmonary: Effort: Pulmonary effort is normal. No respiratory distress. Breath sounds: Normal breath sounds. No stridor. No wheezing or rales. Chest: Chest wall: No tenderness. Abdominal: General: Bowel sounds are normal. There is no distension. Palpations: Abdomen is soft. Tenderness: There is no abdominal tenderness. There is no guarding or rebound. Hernia: No hernia is present. Musculoskeletal: General: No tenderness. Normal range of motion. Cervical back: Normal range of motion and neck supple. Skin: General: Skin is warm. Capillary Refill: Capillary refill takes less than 2 seconds. Coloration: Skin is not pale. Findings: No erythema. Neurological: Mental Status: She is alert and oriented to person, place, and time. Cranial Nerves: No cranial nerve deficit. Sensory: No sensory deficit. Motor: No abnormal muscle tone. Psychiatric: Behavior: Behavior normal. Diagnostic Testing ED Labs Ordered and Reviewed CBC + DIFF - Abnormal; Notable for the following components: Result Value Ref Range Abs [place] 0.88 (*) <0.87 k/uL All other components within normal limits Narrative: This is an appended report. These results have been appended to a previously verified report. D-DIMER - Normal Narrative: 500 ng/mL FEU is the D Dimer cutoff to exclude DVT (deep vein thrombosis) and PE (pulmonary embolism) in patients with a low pre test probability. Supplemental Comment: In patients over 50 years wi (more content not included)... Normal [facility] EKGon 07-24-2022 Electrocardiogram Ventricular Rate : 130 BPM Atrial Rate : 138 BPM QRS Duration : 78 ms Q-T Interval : 300 ms QTC Calculation(Bazett) : 441 ms Calculated R Sharps : 77 degrees Calculated T Sharps : 62 degrees Atrial fibrillation with rapid ventricular response Nonspecific T wave abnormality Abnormal ECG 2257 Atrial fibrillation with rapid ventricular response no stemi Confirmed by MD MILLER CHRISTOPHER ([id number]), newspaper editor managing Beatriz Ferguson ([id number]) on 07/24/2022 2:26:58 PM NAME : HUE AGUILAR PID : [id number] : 1990 Gender : Female Race : Unknown ORD : Procedure Date : Jul 23 2022 22:56:02 Edit Date : Jul 24 2022 14:27:01 Diagnosis: Atrial fibrillation with rapid ventricular response Nonspecific T wave abnormality Abnormal ECG 2257 Atrial fibrillation with rapid ventricular response no stemi Confirmed by MD MILLER CHRISTOPHER ([id number]), newspaper editor managing Beatriz Ferguson ([id number]) on 07/24/2022 2:26:58 PM Test Reason : Location : 302 : ED ED Overread By : MD MILLER CHRISTOPHER Edited By : Beatriz Ferguson Referred By : , Acquired by : , Normal [facility] HIGH SENSITIVITY TROPONIN T (INITIAL)on 07-24-2022 HIGH SENSITIVITY MELINDA 8 ng/L Normal <12 [facility] Comment on above: Order Comment: Dada arenas Type: BLOOD SPECIMENOrdering Facility: [facility] Address: [address] [place] [address] Result Comment: When assessing risk for acute coronary syndromes: In patients undergoing blood draw greater than or equal to 2 hours from symptom onset, with history of very low to moderate risk and non-ischemic ECG, an initial hs-Troponin T less than 12 ng/L AND a 1 hour delta hs-Troponin T less than 3 ng/L should be considered very low risk for 30 day MACE. Performed By: #### L [id number] ####[facility] [id number] [address] HIGH SENSITIVITY TROPONIN T (SECOND)on 07-24-2022 HIGH SENSITIVITY MELINDA 8 ng/L Normal <12 [facility] Comment on above: Order Comment: Dada arenas Type: BLOOD SPECIMENOrdering Facility: [facility] Address: [address] [place] [address] Result Comment: When assessing risk for acute coronary syndromes: In patients undergoing blood draw greater than or equal to 2 hours from symptom onset, with history of very low to moderate risk and non-ischemic ECG, an initial hs-Troponin T less than 12 ng/L AND a 1 hour delta hs-Troponin T less than 3 ng/L should be considered very low risk for 30 day MACE. Performed By: #### L [id number] ####[facility]ORYCLIA [id number] [address] [place] Lipase SerPl-cCncon 07-24-20 22 Lipase [Catalytic activity/Vol] 47 U/L Normal 16-61 [facility] Comment on above: Order Comment: Dada arenas Type: BLOOD SPECIMENOrdering Facility: [facility] Address: [address] [place] [address] Performed By: #### 3 040-3, 01130-9, 49176-0, 3016-3 ####[facility]ORYCLIA [id number] [address] [place] [facility] Magnesium [Mass/Vol] 2.1 mg/dL Normal 1.7-2.3 [facility] Comment on above: Order Comment: Dada arenas Type: BLOOD SPECIMENOrdering Facility: [facility] Address: [address] [place] [address] Performed By: #### 3 040-3, 61622-0, 14807-6, 3016-3 ####[facility]ORYCLIA [id number] [address] NT-proBNP [facility]-ncon 07-24 Natriuretic peptide.B prohormone N-Terminal [Mass/Vol] 345 pg/mL High <125 [facility] Comment on above: Order Comment: Dada arenas Type: BLOOD SPECIMENOrdering Facility: [facility] Address: [address] [place] [address] Performed By: #### 3 3762-6 ####[facility]ATORYCLIA [id number] [place] [id number] [place] TSH SerPl-aCncon 07-24-2022 TSH Qn 1.850 m[IU]/L Normal 0.270-4.200 [facility] Comment on above: Order Comment: Dada arenas Type: BLOOD SPECIMENOrdering Facility: [facility] Address: [address] [place] [address] Result Comment: If t he patient is , TSH reference range varies by gestational period: First Trimester (weeks 9-12): 0.180-2.990 mIU/L Second Trimester: 0.110-3.980 mIU/L Third Trimester: 0.480-4.710 mIU/L Pedro Lim et al. A Practical Approach for the Verifications and Determination of Site- and Trimester-Specific Reference Intervals for Thyroid Function tests in . Thyroid, 2019:29:3:412-420. Jam Pacheco et al. 2017 Guidelines of the [place] Thyroid Association for the Diagnosis and Management of Thyroid Disease during and the . Thyroid, 2017:27:3:315-389. Performed By: #### 3 040-3, 41642-0, 39687-0, 3016-3 ####[facility]ATORYCLIA [id number] [facility] [place] [address] [place] XR CHEST 1V FRONTAL PORTon 1 09-23-2021 XR CHEST 1V FRONTAL PORT * * *Final Report* * * DATE OF EXAM: Jul 23 2022 11:17PM VHX [id number] - XR CHEST 1V FRONTAL PORT / PROCEDURE REASON: Palpitations, no other cardiac signs/symptoms * * * * Physician Interpretation * * * * EXAMINATION: CHEST RADIOGRAPH (PORTABLE SINGLE VIEW AP) Exam Date/Time: 07/23/2022 11:17 PM CLINICAL HISTORY: Palpitations, no other cardiac signs/symptoms MQ: XCPR_5 Comparison: None. RESULT: Lines, tubes, and devices: N/A Lungs and pleura: No focal infiltrates or pleural effusions. _ No pneumothorax. Cardiomediastinal silhouette: Stable cardiomediastinal silhouette. Bones and soft tissues: Scoliosis with Payne rods. IMPRESSION: No acute radiographic abnormality. Travel Pta: PSCB Transcribe Date/Time: Jul 23 2022 11:19P Dictated by : HONG MEDRANO MD This examination was interpreted and the report reviewed and electronically signed by: HONG MEDRANO MD on Jul 23 2022 11:19PM EST [id number] Normal [facility] Vital Signs Date Time Vital Sign Value Performing Clinician Facility 09-12-2023 13:20-0500 Body height 171.45 cm Lorie Cary Other [facility] Other 09-12-2023 13:20-0500 Body mass index (BMI) [Ratio] 22.99 kg/m2 Lorie Cary Other [facility] Other 09-12-2023 13:20-0500 Body weight 67.59 kg Lorie Cary Other [facility] Other 05-27-2023 13:40-0400 Body height 170.2 cm Jessee Hamilton MD Work Phone: [facility] 05-27-2023 13:40-0400 Body weight 65.77 kg Jessee Hamilton MD Work Phone: [facility] 05-27-2023 13:40-0400 Diastolic blood pressure 76 mm[Hg] Jessee Hamilton MD Work Phone: [facility] 05-27-2023 13:40-0400 Heart rate 97 /min Jessee Hamilton MD Work Phone: [facility] 05-27-2023 13:40-0400 Systolic blood pressure 124 mm[Hg] Jessee Hamilton MD Work Phone: [facility] 05-26-2023 13:29-0400 Diastolic blood pressure 87 mm[Hg] Ashwini Finefrock PA-C Work Phone: [facility] 05-26-2023 13:29-0400 Systolic blood pressure 122 mm[Hg] Ashwini Finefrock PA-C Work Phone: [facility] 05-26-2023 13:11-0400 Body height 170.2 cm Ashwini Finefrock PA-C Work Phone: [facility] 05-26-2023 13:11-0400 Body temperature 98.29 [degF] Ashwini Finefrock PA-C Work Phone: [facility] 05-26-2023 13:11-0400 Body weight 64.41 kg Ashwini Finefrock PA-C Work Phone: [facility] 05-26-2023 13:11-0400 Heart rate 71 /min Ashwini Finefrock PA-C Work Phone: [facility] 05-26-2023 13:11-0400 SaO2% (BldA) [Mass fraction] 98 % Ashwini Finefrock PA-C Work Phone: [facility] 02-22-2023 14:21-0400 Body height 170.2 cm Ashwini Finefrock PA-C Work Phone: [facility] 02-22-2023 14:21-0400 Body weight 56.25 kg Ashwini Finefrock PA-C Work Phone: [facility] 02-22-2023 14:21-0400 Diastolic blood pressure 79 mm[Hg] Ashwini Finefrock PA-C Work Phone: [facility] 02-22-2023 14:21-0400 Heart rate 90 /min Ashwini Finefrock PA-C Work Phone: [facility] 02-22-2023 14:21-0400 SaO2% (BldA) [Mass fraction] 98 % Ashwini Finefrock PA-C Work Phone: [facility] 02-22-2023 14:21-0400 Systolic blood pressure 110 mm[Hg] Ashwini Finefrock PA-C Work Phone: [facility] 02-08-2023 15:30-0400 Body height 170.2 cm Chitra Mizanin PA-C Work Phone: [facility] 02-08-2023 15:30-0400 Body weight 55.79 kg Chitra Mizanin PA-C Work Phone: [facility] 02-08-2023 15:30-0400 Diastolic blood pressure 84 mm[Hg] Chtira Mizanin PA-C Work Phone: [facility] [facility] 02-08-2023 15:30-0400 Heart rate 71 /min Chitra Mizanin PA-C Work Phone: [facility] 02-08-2023 15:30-0400 SaO2% (BldA) [Mass fraction] 98 % Chitra Mizanin PA-C Work Phone: [facility] 02-08-2023 15:30-0400 Systolic blood pressure 128 mm[Hg] Chitra Mizanin PA-C Work Phone: [facility] 02-04-2023 11:16-0400 Diastolic blood pressure 82 mm[Hg] Chitra Mizanin PA-C Work Phone: [facility] 02-04-2023 11:16-0400 Systolic blood pressure 124 mm[Hg] Chitra Mizanin PA-C Work Phone: [facility] 02-04-2023 10:56-0400 Body height 170.2 cm Chitra Mizanin PA-C Work Phone: [facility] 02-04-2023 10:56-0400 Body weight 55.34 kg Chitra Mizanin PA-C Work Phone: [facility] 02-04-2023 10:56-0400 Heart rate 78 /min Chitra Mizanin PA-C Work Phone: [facility] 02-04-2023 10:56-0400 SaO2% (BldA) [Mass fraction] 99 % Chitra Mizanin PA-C Work Phone: [facility] 02-03-2023 14:55-0400 Body height 170.2 cm Aria Glasenapp PA-C Work Phone: [facility] 02-03-2023 14:55-0400 Body weight 55.43 kg Aria Glasenapp PA-C Work Phone: [facility] 02-03-2023 14:55-0400 Diastolic blood pressure 89 mm[Hg] Aria Glasenapp PA-C Work Phone: [facility] 02-03-2023 14:55-0400 Heart rate 80 /min Aria Glasenapp PA-C Work Phone: [facility] 02-03-2023 14:55-0400 Systolic blood pressure 152 mm[Hg] Aria Glasenapp PA-C Work Phone: [facility] 12-22-2022 08:20-0400 Body height 171.5 cm Marco Slade DO Work Phone: [facility] 12-22-2022 08:20-0400 Body weight 50.8 kg Marco Slade DO Work Phone: [facility] 12-22-2022 08:20-0400 Diastolic blood pressure 87 mm[Hg] Marco Slade DO Work Phone: [facility] 12-22-2022 08:20-0400 Heart rate 67 /min Marco Slade DO Work Phone: [facility] 12-22-2022 08:20-0400 Respiratory rate 16 /min Marco Slade DO Work Phone: [facility] 12-22-2022 08:20-0400 SaO2% (BldA) [Mass fraction] 100 % Marco Slade DO Work Phone: [facility] 12-22-2022 08:20-0400 Systolic blood pressure 129 mm[Hg] Marco Slade DO Work Phone: [facility] 09-27-2022 09:10-0500 Body height 170.2 cm Jessee Hamilton MD Work Phone: [facility] 09-27-2022 09:10-0500 Body weight 50.35 kg Jessee Hamilton MD Work Phone: [facility] 09-27-2022 09:10-0500 Diastolic blood pressure 78 mm[Hg] Jessee Hamilton MD Work Phone: [facility] 09-27-2022 09:10-0500 Heart rate 87 /min Jessee Hamilton MD Work Phone: [facility] 09-27-2022 09:10-0500 SaO2% (BldA) [Mass fraction] 99 % Jessee Hamilton MD Work Phone: [facility] 09-27-2022 09:10-0500 Systolic blood pressure 110 mm[Hg] Jessee Hamilton MD Work Phone: [facility] Encounters Encounter Date Encounter Type Care Provider Facility Start: 09-26-2023 End: 09-27-2023 ambulatory Chucky Hernandez MD Facility: [facility] Start: 09-12-2023 End: 09-12-2023 ambulatory Lorie Townsend Facility:[facility] Start: 09-12-2023 End: 09-12-2023 Patient encounter procedure PHYSICIAN NO [facility] Work Phone: Start: 09-12-2023 End: 09-12-2023 ambulatory PHYSICIAN NO [facility] Work Phone: Start: 09-12-2023 Office outpatient ne w 45 minutes Lorie Townsend [facility] Neurosurgery Start: 07-14-2023 End: 07-15-2023 ambulatory TERRIE BROWN [facility] Start: 07-14-2023 End: 07-14-2023 Office outpatient visit 25 minutes Terrie Brown MD Work Phone: [facility] Comment on above: Neuropathy (Primary Dx); Lumbar radiculopathy Start: 06-21-2023 ambulatory [facility] Start: 06-15-2023 Refill Ashwini L F inefrock PA-C Work Phone: Internal [facility] Comment on above: Refill Request Start: 06-05-2023 Refill Ashwini L F inefrock PA-C Work Phone: [facility] Comment on above: Refill Request Start: 05-30-2023 Refill Ashwini L F inefrock PA-C Work Phone: [facility] Comment on above: Refill Request Start: 05-27-2023 End: 05-27-2023 ambulatory ASHWINI L FINEFROCK Facility:[facility] Start: 05-27-2023 End: 05-27-2023 Patient encounter procedure Jessee Hamilton MD Work Phone: Cardiology Comment on above: Paroxysmal atrial fi brillation (HCC) (Primary Dx); Palpitations Start: 05-26-2023 End: 05-26-2023 ambulatory ASHWINI L FINEFRJENNIFFER Facility:[facility] Start: 05-26-2023 End: 05-26-2023 Patient encounter procedure Ashwini Carina Romainfrock PA-C Work Phone: [facility] Comment on above: Moderate episode of recurrent major depressive disorder (HCC) (Primary Dx); Attention deficit hyperactivity disorder (ADHD), unspecified ADHD type; Alcohol abuse; Juvenile idiopathic scoliosis of thoracolumbar region; Paroxysmal atrial fibrillation (HCC); Neuropathy; Encounter for immunization Start: 05-20-2023 Get Medical Advice Uri Lim Finefrock PA-C Work Phone: [facility] Comment on above: Adderall refill Start: 05-19-2023 Refill Ashwini Nguyễn inefrock PA-C Work Phone: [facility] Comment on above: Refill Request Start: 05-18-2023 Refill Ashwini Nguyễn inefrock PA-C Work Phone: [facility] Comment on above: Refill Request Start: 05-15-2023 Refill Ashwini Nguyễn inefrock PA-C Work Phone: [facility] Comment on above: Refill Request Start: 04-27-2023 Refill Chitra Lim Theodora capellanin PA-C Work Phone: [facility] Comment on above: Refill Request Start: 04-26-2023 Refill Ashwini Nguyễn inefrock PA-C Work Phone: [facility] Comment on above: Refill Request Start: 04-21-2023 Get Medical Advice Uri Lim Finefrock PA-C Work Phone: [facility] Comment on above: Adderall refill Start: 04-12-2023 ambulatory Ashwini Nguyễn inefrock PA-C Work Phone: [place] Start: 04-12-2023 Letter encounter Ashwini Hoyosfrock PA-C Work Phone: [facility] Comment on above: Letter for Disabilit y Start: 03-31-2023 Refill Ashwini Carina Nguyễn karissa PA-C Work Phone: Internal Medicine [facility] Start: 03-22-2023 ambulatory Ashwini L F karissa PA-C Work Phone: Internal Medicine [facility] Comment on above: Resend prescription Refill Request Med refill Start: 2023 Chart Update Ashwini Lim Gopi karissa Work Phone: UQ-Rnctqmdqqxvn-Fenyiq an Work Phone: Start: 03-14-2023 End: 03-14-2023 Get Medical Advice Ashwini Matute PA-C Work Phone: Internal Medicine [facility] Comment on above: Medication refills Low back pain, unspe cified; Radiculopathy, lumbar region; Arthrodesis status Start: 03-14-2023 Chart Update Ashwini hancock Work Phone: AI-Zufupcslxpco-M [address] [address] Work Phone: Start: 03-09-2023 AUDIT Ashwini Lim Gopi karissa Work Phone: YE-Rzcprwaqdhsr-Bmchuq an Work Phone: Start: 03-03-2023 End: 03-03-2023 ambulatory ARIA IZQUIERDO Facility:[facility] Start: 02-25-2023 ambulatory Aria Ayadenapp PA-C [facility] Start: 02-25-2023 Patient encounter procedure Aria Glasenapp PA-C Work Phone: OB/Gynecology Comment on above: Upcoming appointment Start: 02-24-2023 Chart Update Ashwini Lim Gopi karissa Work Phone: JI-Wuelgidjctpf-Iaguco ke Work Phone: Start: 02-22-2023 End: 02-22-2023 ambulatory ASHWINI MATUTE Facility:[facility] Start: 02-22-2023 End: 02-22-2023 Patient encounter procedure Ashwini Matute PA-C Work Phone: [facility] Comment on above: Mild episode of recu rrent major depressive disorder (HCC) (Primary Dx); Attention deficit hyperactivity disorder (ADHD), unspecified ADHD type; Vitamin D deficiency Start: 02-15-2023 End: 02-15-2023 ambulatory ASHWINI MATUTE Facility:[facility] Start: 02-10-2023 NPV, Provider: Terrie Brown, Status: Pen, Time: 1:30 PM Terrie Brown MD Work Phone: BU-Rshuhuvlxokd-Jbypka 107 DO Work Phone: Start: 02-10-2023 Office outpatient ne w 30 minutes Ashwini Matute Work Phone: JV-Soojhobcgsyk-Ydqvhy ke Work Phone: Start: 02-10-2023 Refill Ashwini sylvesterfrock PA-C Work Phone: [facility] Start: 02-08-2023 AUDIT Terrie aiken MD Work Phone: AN-Juilvaohyqnk-Gzwnpw 107 DO Work Phone: Start: 02-08-2023 End: 02-08-2023 Office outpatient visit 25 minutes Chitra Carina Mizanin PA-C Work Phone: Internal [facility] Comment on above: Upper back pain on r ight side (Primary Dx) Start: 02-08-2023 End: 02-08-2023 ambulatory Bindu Tirado RT(R) Radiology Comment on above: Radio Gen RMP Start: 02-08-2023 Patient encounter procedure Bindu Tirado RT(R) [place] Start: 02-07-2023 ambulatory Chitra capellanin PA-C Work Phone: [place] Start: 02-07-2023 Patient encounter procedure Chitra L Mizanin PA-C Work Phone: Internal Medicine [facility] Comment on above: Appointment request Start: 02-04-2023 End: 02-04-2023 ambulatory [facility] Facility:[facility] Start: 02-04-2023 End: 02-04-2023 Office outpatient visit 15 minutes Chitra BOLANDC Work Phone: Internal Medicine [facility] Comment on above: Neuropathy (Primary Dx) Start: 02-03-2023 End: 02-03-2023 Subsequent hospital visit by physician [facility] Work Phone: Cardiovascular Testing Comment on above: Palpitations [R00.2] Start: 02-03-2023 End: 02-03-2023 ambulatory ARIA IZQUIERDO Facility:[facility] Start: 02-03-2023 End: 02-03-2023 Patient encounter procedure Aria TAET-C Work Phone: OB/Gynecology Comment on above: Counseling for control regarding intrauterine device (IUD) Start: 01-11-2023 End: 01-11-2023 ambulatory [facility] Facility:[facility] Start: 01-11-2023 Telephone encounter Yue BRANNON Work Phone: Adult Psychology Comment on above: Behavioral Health/So cial Work Start: 12-31-2022 Telephone encounter Marco Slade DO Work Phone: Spine Medicine Comment on above: Scans Start: 12-22-2022 End: 12-22-2022 Subsequent hospital visit by physician [facility] Work Phone: [facility] Radiology General Comment on above: Juvenile idiopathic scoliosis of thoracolumbar region [M41.115] Start: 12-22-2022 End: 12-22-2022 ambulatory MARCO SLADE Facility:[facility] Start: 12-22-2022 End: 12-22-2022 Patient encounter procedure Marco Slade DO Work Phone: Spine Medicine Comment on above: 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 (Primary Dx); Juvenile idiopathic scoliosis of thoracolumbar region; Arthrodesis status; Paresthesia of right foot Start: 11-25-2022 ambulatory Jessee faith MD Work Phone: Cardiology Comment on above: monitor technician Start: 11-05-2022 ambulatory Jessee faith MD Work Phone: Cardiology Comment on above: Heart Monitor Start: 10-18-2022 ambulatory Jessee faith MD Work Phone: Cardiology Comment on above: Monitor Start: 10-18-2022 E-mail encounter fro m caregiver Jessee Hamilton MD Work Phone: [facility] Start: 09-27-2022 End: 09-27-2022 ambulatory JESSEE HAMILTON Facility:[facility] Start: 09-27-2022 End: 09-27-2022 Office outpatient new 20 minutes Jessee Hamilton MD Work Phone: Cardiology Comment on above: Palpitations (Primar y Dx); Paroxysmal atrial fibrillation (HCC) Start: 09-15-2022 Telephone encounter Liang sims MD Work Phone: Cardiology Comment on above: Received Outside Med ical Records Start: 07-24-2022 End: 07-24-2022 Emergency department patient visit [facility] Facility:[facility] Procedures Date Procedure Procedure Detail Performing Clinician Start: 09-12-2023 X-ray of lumbar spin e, six views including bending views PHYSICIAN NO FAMILY Start: 05-26-2023 INFLUENZA VACCINE, A GE 6 MO - 64 YR, QUADRIVALENT (AFLURIA, FLULAVAL, FLUZONE) Ashwini Matute PA-C Work Phone: Start: 03-14-2023 CT Lumbar spine Natalie Brown MD Work Phone: Start: 03-14-2023 RF Guidance for inje ction of Lumbar spine Terrie Brown MD Work Phone: Start: 12-22-2022 Radex entir thrc lmb r crv sac spi w/skull 2/3 vw Marco Slade DO Work Phone: Start: 09-27-2022 Ecg routine ecg w/le ast 12 lds i&r only [facility] Provider Plan of Treatment Date Care Activity Detail Author Start: 2041 Zoster Vaccines (1 of 2) Zoste r Vaccines (1 of 2) [facility] Start: 01-12-2024 COVID-19 VACCINE (#1) COVID-19 VACCI NE (#1) [facility] Comment on above: Postponed from 09/15 (Declined at this time) Start: 05-26-2023 End: 07-26-2023 Comprehensive metabolic 2000 panel - Serum or Plasma [facility] Work Phone: Comment on above: Expected: 05/26/2023 , Expires: 07/26/2023 Start: 05-26-2023 End: 07-26-2023 TOX SCREEN ROUT UR [facility] Work Phone: Comment on above: Expected: 05/26/2023 , Expires: 07/26/2023 Start: 05-06-2023 Influenza vaccination [facility] Start: 09-05-2022 DEPRESSION ASSESSMENT DEPRESSION ASS ESSMENT [facility] Start: 05-06-2022 Influenza vaccination INFLUENZA (#1) [facility] Start: 2021 HPV TESTING HPV TESTING [facility] Start: 2013 DTaP/Tdap/Td Vaccine s (1 - Tdap) DTaP/Tdap/Td Vaccines (1 - Tdap) [facility] Start: 2012 PAP TESTING PAP TESTING [facility] Start: 2012 Screening for malign ant neoplasm of cervix [facility] Start: 05-30-2011 HPV VACCINE (3 - 3-d ose series) HPV VACCINE (3 - 3-dose series) [facility] Start: 05-30-2011 HPV Vaccines (3 - 3- dose series) HPV Vaccines (3 - 3-dose series) [facility] Start: 2010 Urine microalbumin profile [facility] Start: 2009 Diabetes mellitus screening Diabetes Screening [facility] Start: 2009 HEPATITIS C SCREENING HEPATITIS C SC REENING [facility] Start: 2009 Hepatitis C screening Hepatitis C Sc [facility] Start: 2009 HIV SCREENING HIV SCREENING [facility] Start: 1992 MMR Vaccines (1 of 1 - Standard series) MMR Vaccines (1 of 1 - Standard series) [facility] Start: 1992 Varicella vaccination Varicell a Vaccines (1 of 2 - 2-dose childhood series) [facility] Start: 1991 COVID-19 VACCINE (#1) COVID-19 VACCI NE (#1) [facility] Start: 1991 HEPATITIS B (1 of 3 - 3-dose series) HEPATITIS B (1 of 3 - 3-dose series) [facility] Start: 1991 Hepatitis B Vaccine (1 of 3 - 3-dose series) Hepatitis B Vaccine (1 of 3 - 3-dose series) [facility] Start: 1991 Hepatitis B Vaccines (1 of 3 - 3-dose series) Hepatitis B Vaccines (1 of 3 - 3-dose series) [facility] Start: 1991 HIV screening HIV Screening [facility] Start: 1991 Lipid panel Lipid Panel [facility] Start: 1991 Yearly Adult Physical Yearly Adult P [facility] lumbar spine w/co ntrast material CT MYELOGRAM LUMBAR Radiology Routine 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 Ordered: 12/22/2022 [facility] Work Phone: Comment on above: Ordered: 12/22/2022 Ct thoracic spine w/contrast material CT MYELOGRAM THORACIC Radiology Routine 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 Ordered: 12/22/2022 [facility] Work Phone: Comment on above: Ordered: 12/22/2022 End: 09-27-2023 ECG COMPLETE ECG COMPLETE ECG Routine Palpitations 1 Occurrences starting 09/27/2022 until 09/27/2023 [facility] Work Phone: Comment on above: 1 Occurrences starti ng 09/27/2022 until 09/27/2023 ECG COMPLETE ECG COMPLETE ECG 09/27/2022 9:14 AM EST [facility] End: 09-27-2023 Echocardiography ECHO Cardiology Routine Palpitations 1 Occurrences starting 09/27/2022 until 09/27/2023 [facility] Work Phone: Comment on above: 1 Occurrences starti ng 09/27/2022 until 09/27/2023 Insertion intrauteri ne device iud INSERT INTRAUTERINE DEVICE Procedures Routine Counseling for control regarding intrauterine device (IUD) Ordered: 02/03/2023 [facility] Work Phone: Comment on above: Ordered: 02/03/2023 IR XR INJ MYELOGRAM IR XR INJ MY ELOGRAM Radiology Routine 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 Ordered: 12/22/2022 [facility] Work Phone: Comment on above: Ordered: 12/22/2022 OUTSIDE VENDOR CARDI AC OUTPATIENT TELEMETRY OUTSIDE VENDOR CARDIAC OUTPATIENT TELEMETRY Holter Routine Palpitations Ordered: 09/27/2022 [facility] Work Phone: Comment on above: Ordered: 09/27/2022 OUTSIDE VENDOR CARDI AC OUTPATIENT TELEMETRY OUTSIDE VENDOR CARDIAC OUTPATIENT TELEMETRY Holter Routine Paroxysmal atrial fibrillation (HCC) Palpitations Ordered: 11/05/2022 [facility] Work Phone: Comment on above: Ordered: 11/05/2022 [facility] Immunizations Immunization Date Immunization Notes Care Provider Niko tracey 05-26-2023 influenza, injectabl e, quadrivalent, contains preservative Ashwini Matute PA-C Work Phone: [facility] 06-03-2022 influenza, injectabl e, quadrivalent, preservative free Terrie Brown MD Work Phone: [facility] Work Phone: 06-11-2014 influenza virus vaccine, whole virus Liang Buenrostro MD Work Phone: [facility] 06-11-2014 influenza, seasonal, injectable Terrie Brown MD Work Phone: [facility] Work Phone: 06-11-2014 influenza virus vaccine, unspecified formulation Ashwini Matute PA-C Work Phone: [facility] 01-21-2011 human papilloma viru s vaccine, bivalent Liang Buenrostro MD Work Phone: [facility] 01-21-2011 HPV, unspecified formulation Terrie Brown MD Work Phone: [facility] Work Phone: 11-27-2010 human papilloma viru s vaccine, bivalent Liang Buenrostro MD Work Phone: [facility] Payers Date Payer Category Payer Self-pay 2023 Unknown 2023 Unknown [id number] 2023 Medicaid [id number] 2023 Medicaid [id number] 2022 Private Health Insurance [id number] 2022 Private Health Insurance [id number] 2021 Unknown [id number] 1991 Unknown [id number] 1991 Unknown [id number] 1991 Unknown [id number] 1991 Unknown [id number] 1991 Unknown [id number] [id number]. [id number] Self-pay [id number] Unknown [id number] Social History Date Type Detail Facility Start: 12-02-2014 Tobacco smoking status [facility] Tobacco smoking consumption unknown [facility] Start: 08-05-2022 End: 09-27-2022 Alcohol intake Current non-drinker of alcohol (finding) [facility] Start: 1990 Sex Assigned At Not on file [facility] Start: 09-27-2022 Tobacco smoking status [place] Never smoked tobacco [facility] Start: 09-27-2022 Tobacco use and exposure Smokeless tobacco non-user [facility] Start: 09-27-2022 Tobacco Comment vapes [facility] Start: 01-05-2023 History SDOH Alcohol Frequency 5 [facility] Start: 01-05-2023 History SDOH Alcohol Std Drinks 1 [facility] Start: 01-05-2023 History SDOH Social Connections Phone 2 [facility] Start: 01-05-2023 History SDOH Social Connections Jew 98 [facility] Start: 01-05-2023 History SDOH Stress 4 [facility] Start: 09-21-2022 End: 01-05-2023 Never smoker Never smoker [facility] Start: 09-21-2022 End: 01-05-2023 Social connection and isolation panel [facility] How often do you att end baptist or muslim services? Patient refused [facility] Do you belong to any clubs or organizations such as baptist groups, unions, fraternal or athletic groups, or school groups? No [facility] Are you now , , , , never or living with a partner? [facility] How often to you hav e a drink containing alcohol? 4 or more times a week [facility] How many standard dr inks containing alcohol do you have on a typical day? 1 or 2 [facility] How often do you hav e 6 or more drinks on 1 occasion? Never [facility] Do you feel stress - tense, restless, nervous, or anxious, or unable to sleep at night because your mind is troubled all the time - these days [OSQ] Rather much [facility] (I/We) worried titus er (my/our) food would run out before (I/we) got money to buy more. Never true [facility] Start: 1990 Sex Assigned At Female [facility] Start: 05-22-2023 Gender identity Identifies as female gender (finding) [facility] Start: 05-22-2023 Sexual orientation Choose not to disclose [facility] Start: 07-04-2023 End: 07-14-2023 Exposure to SARS-CoV-2 (event) Not sure [facility] Medical Equipment Procedure Code Equipment Code Equipment Origin al Text Equipment Identifier Dates use to inject B- 12 MONTHLY [id number] Start: 02-04-2023 use to DRAW B-12 INJECTION as directed [id number] Start: 02-04-2023 Clinical Notes 07-24-2022 to 09-12-2023 Note Date & Type Note Facility 09-12-2023 Evaluation note Encounter Date Diagnosis Assessment Notes Sep, Lumbar radiculopathy, right (ICD-10 - M54.16) Ms Titus is a new patient to me and presents for low back pain and pain, numbness in her right foot that radiates up. Has significant surgical history of lumbar fusion with scoliosis. [facility] worsing of pain since 2017, was seen by pain managment in which they were unable to place pain stimulator due to scar tissue. [facility] had EMG in [place] by Dr Galvan. 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 Patient's biggest complaint is that of paresthesia of the right foot that radiates up to the lateral aspect of the calf. Upon examination patient has decreased sensation of the sacral plexus lateral cutaneous nerve of calf. The patient's symptoms are likely that from a peripheral neuropathy as patient has vitamin B and vitamin D deficiencies. Will get release of information from medical records and [place] from Dr. Galvan. Will refer for a new EMG as previous one in [place] was greater than 2 years old. Pharmacological management will continue with current medications as prescribed. Will refer patient to trang therapy at the [facility]. Follow-up in 3 months. Medical decision making shows a new problem to me with further workup planned or suggested with the potential for extensive treatment options that were considered with the most applicable given this patient's situation as noted above. Treatment options considered include a combination of physical therapy approaches, pharmacologic management, and interventional procedures. Those most applicable to the patient were discussed at this time. Risk of complications and/or morbidity and mortality is high given that acute and chronic pain poses a threat to life and bodily function if undertreated, poorly treated or with failure to maintain adequate treatment and timely follow up. Given the serious and fluctuating nature of pain with extensive consideration for whenever pain changes, there always remains the possibility of prolonged functional impairment requiring constant patient reassessment and high-level medical decision making. The amount and complexity of data reviewed is moderate given that patient labs, radiology reports, and other test were obtained, reviewed and summarized as applicable from the physician portal and/or outside medical records. Pertinent positive and negative findings were considered in medical decision-making. OARRS reviewed. Sep, Paresthesia (ICD-10 - R20.2) Sep, Other polyneuropathy (ICD-10 - G62.89) Sep, Vitamin B deficiency (ICD-10 - E53.9) Gabstr Other 11-09-2023 History of Present illness Narrative* Terrie Brown MD - 07/14/2023 11:45 AM EST S: Hue Titus is a 33 y.o. year old female patient who is here to follow up on CT myelogram. She was last seen in my clinic on 02/10/23 for chronic low back pain and right leg and foot numbness. She has a history of scoliosis as an adolescent and underwent spinal fusion at the age of 15 [facility]. However a year after that surgery she needed a second surgery to extend her fusion down to L4. Her first surgery was April 2005 her second surgery was May 16, 2006. She was doing fine after her second surgery until August 2017 when she started to develop right leg pain particularly in the right calf and foot. Describes as a sharp pain. She kind of ignored it at that time and then around 2018- 2019 while living in [place] she was seeing pain management who tried caudal injections which did not help. She is also tried multiple medications such as Cymbalta and Lyrica without any relief. She was started on gabapentin which initially did provide relief of her leg painbut now she still has a lot of foot pain. She describes as a burning sensation. She then since moved back to [place] and has been seeing physicians at [facility]. Most of her care is done at [facility]. She was seeing pain management with Dr. Olivares who tried a spinal cord stimulator trial but was unsuccessful because of all the scar tissue in her back they had trouble getting in the needle. After the trial with the spinal cord stimulator she started to develop worsening low back pain. Denies any symptoms down the left leg. Denies any bowel or bladder disturbances or saddle anesthesia. Dates that her pain ranges from a 0 to a 10 out of 10 depending on activity. Usually worsewhen she is standing or sitting for too long. Of note patient was recently diagnosed with A-fib was supposed to be on Eliquis but was too expensive so she never took it. Instead she was told to take high- dose aspirin which she still has not started taking yet. 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 She does not smoke occasionally drinks alcohol does not follow any routine exercise program. At the last visit I had recommend getting a CT myelogram to better visualize any nerve compression.She is here to follow-up on the CT myelogram. No change since I last saw her continues to complain of the right leg numbness around the posterior thigh and lateral calf and her entire foot with pain on the lateral aspect of her right foot but no weakness O: General: Patient appears well-nourished and well-developed in no acute distress, Alert and Orientedx3. Thin female Psych: Pleasant mood and affect HEENT: Extraocular muscles intact, pupils equal and round. Sclerae anicteric Cardio: extremities warm and well perfused Resp: unlabored symmetric breathing Skin: She has a well-healed thoracolumbar midline incision. Musculoskeletal/Neuro Exam: Normal gait. No tenderness to palpation along the thoracolumbar spine and paraspinal muscles. Negative straight leg raise bilaterally. No groin pain with ROM of the hip joints with IR and ER. Negative XAVIER bilaterally. Lower extremity: No tenderness to palpation around the right foot. No pain with palpation around the right ankle with the medial lateral mall. No pain around the fifth metatarsal. Motor: Right leg with 5 out of 5 motor strength with hip flexion, knee extension, ankle dorsiflexion plantarflexion and EHL against resistance. Left leg with 5 out of 5 motor strength with hip flexion, knee extension, ankle dorsiflexion plantarflexion EHL against resistance Sensation to light touch intact along L2 to S1 distribution bilaterally except for some diminished sensation along the lateral aspect of the right foot and leg 2+ patella and achilles Reflex bilaterally Imaging: I personally reviewed x-rays of the lumbar spine back in February 10, 2023. There is standing upright APlateral flexion-extension views of the lumbar spine. Curvature of the thoracolumbar spine.she has posterior instrumentation from her thoracic spine ending with bilateral pedicle screws at L4. I do not see any evidence of hardware failure or broken hardware. She does have mild retrolisthesis of L4-5. Degenerative changes and facet arthrosis at L4-L5 L5-S1. I reviewed the CT myelogram from March 14, 2023 there is a lot of metal artifact. However I do not see any significant stenosis at the level below her fusion at L4-L5 L5-S1. There is pseudomeningoceleat the level of L2. Patient had a EMG back in [place] in 2020 which she brought in today which suggested a right L5 radiculopathy A/P: Hue Titus is a 33 y.o. year old female patient with history of scoliosis status post thoracolumbar fusion when she was a teenager who reports persistent right radicular leg pain and numbness. She had EMG done in [place] in 2020 which suggested a right L5 radiculopathy. She recently hada CT myelogram unfortunately I do not see any significant compression involving the L5 nerve root. No stenosis at the level below her fusion. However her CT myelogram reports pseudomeningocele at thelevel of L2. I am not sure how much of this is contributing to her symptoms. I would not recommend any type of surgical intervention for the pseudomeningocele due to risk of potential worsening nerve injury. I recommend perhaps seeing neurology for further recommendation in regards to her paresthesias and numbness. Also recommend referral to pain management which she was given referral in clinic today. After our discussion, the patient articulated understanding of the plan and felt that all questions had been answered satisfactorily. The patient was pleased with the visit and very appreciative for the care rendered. Please excuse any errors in grammar or translation related to this dictation. Voice recognition software was utilized to prepare this document. Terrie Brown MD Air Quality Instrument Specialist Department of Orthopaedic Surgery [facility] [email or web address] documented in this encounterUnTrinity Health System Work Phone: 1(596) 557-920010-12-2023 Miscellaneous Notes* Telephone Encounter - Ashwini Matute PA-C - 06/16/2023 1:20 PM EDT The following approved medication requests have been transmitted electronically. Requested Prescriptions Signed Prescriptions Disp Refills ergocalciferol 50,000 unit capsule (VITAMIN D2, DRISDOL) 4 capsule 7 Sig: Take 1 capsule by mouth one time a week. Authorizing Provider: ASHWINI MATUTE buPROPion XL (WELLBUTRIN XL) 150 mg 24 hr tablet 30 tablet 2 Sig: Take 1 tablet by mouth once daily. Authorizing Provider: ASHWINI MATUTE gabapentin (NEURONTIN) 600 mg tablet 180 tablet 0 Sig: Take 2 tablets by mouth three times a day for 30 days. Authorizing Provider: ASHWINI MATUTE. RICHIE Matute * Telephone Encounter - Josh Han - 06/15/2023 2:07 PM EDT Last office visit:05/26/23 Next office visit:07/07/23 Requested Prescriptions Pending Prescriptions Disp Refills ergocalciferol 50,000 unit capsule (VITAMIN D2, DRISDOL) 4 capsule 7 Sig: Take 1 capsule by mouth one time a week. buPROPion XL (WELLBUTRIN XL) 150 mg 24 hr tablet 30 tablet 2 Sig: Take 1 tablet by mouth once daily. gabapentin (NEURONTIN) 600 mg tablet 180 tablet 0 Sig: Take 2 tablets by mouth three times a day for 30 days. Please review and advise. Order pended Josh Han MA documented in this encounterC[facility]10-02-2023 Miscellaneous Notes* Telephone Encounter - Altagracia Leroy MA - 06/06/2023 7:19 AM EDT Last ov: 05/26/23 Next ov: 07/07/23 Pharmacy electronically requests the following refill(s) Requested Prescriptions Pending Prescriptions Disp Refills metoprolol tartrate, short acting, (LOPRESSOR) 25 mg tablet [Pharmacy Med Name: METOPROLOL [id number] MG TAB] 60 tablet 2 Sig: take 1 tablet by mouth twice a day Altagracia Leroy MA documented in this encounterCleveland Clinic [facility]09-25-2023 Miscellaneous Notes* Telephone Encounter - Ashwini Matute PA-C - 05/30/2023 1:45 PM EDT The following approved medication requests have been transmitted electronically. Requested Prescriptions Signed Prescriptions Disp Refills pregabalin (LYRICA) 50 mg capsule 90 capsule 2 Sig: Take 1 capsule by mouth three times daily for 90 days. Authorizing Provider: ASHWINI MATUTE PA-C PDMP website checked and validated. All prescriptions have been APPROPRIATELY filled. No suspiciousactivity was identified. 05/30/2023 by Ashwini Matute PA-C * Telephone Encounter - Lorrie Vargas MA - 05/30/2023 11:20 AM EDT Patient phones requesting refills as follows: Requested Prescriptions Pending Prescriptions Disp Refills pregabalin (LYRICA) 50 mg capsule 90 capsule 2 Sig: Take 1 capsule by mouth three times daily for 90 days. Please review and advise. Lorrie Vargas MA documented in this encounterCleveland Clinic [facility]09-25-2023 Miscellaneous Notes* Telephone Encounter - Teagan Green MA - 05/30/2023 11:25 AM EDT Last OV: 05/26/23 Next OV: 07/07/23 Patient's request for medication is as follows: Requested Prescriptions Pending Prescriptions Disp Refills pregabalin (LYRICA) 50 mg capsule 90 capsule 2 Sig: Take 1 capsule by mouth three times daily for 90 days. Please approve the above prescription(s) to electronically send to pharmacy. Teagan Green MA documented in this encounterCleveland Clinic [facility]09-22-2023 NoteHNO ID: [id number] Author: Jessee Hamilton MD Service: ? Author Type: Physician Type: Progress Notes Filed: 05/28/2023 8:48 AM Note Text: PRIMARY CARE PHYSICIAN: Ashwini Matute [address] [place] [address] REFERRING PHYSICIAN: No referring provider defined for this encounter. CHIEF COMPLAINT: Abnormal Holter HISTORY OF PRESENT ILLNESS: From my office notes on September 27, 2022 Probably paroxysmal atrial fibrillation, with spontaneous conversion into normal sinus rhythm. [id number] 0 based on the information we have so far. Will obtain a 30-day event monitor and obtain an echocardiogram. Slightly low potassium at the time of her symptoms: Patient encouraged to eat food high on potassium. Since then No symptoms during monitor but she thinks she had an 'event' after she returned it. Denies chest pain, shortness of breath, orthopnea, cough, edema, paroxysmal nocturnal dyspnea, lightheadedness or syncope. I have personally interviewed, confirmed and edited the above information if obtained by others. PAST MEDICAL HISTORY Diagnosis Date ADHD (attention deficit hyperactivity disorder) Ovarian cyst PAF (paroxysmal atrial fibrillation) ([facility]) 07/2022 follows with cardiology Scoliosis SVT, lower extremity (HCC) 2019 ASA only no anticoagulants PAST SURGICAL HISTORY Procedure Laterality Date OTHER SURGICAL HISTORY (PLEASE SPECIFY) HX 2004,2005 back surgery x2 for scoliosis with marilu placement MEDICATIONS: aspirin 325 mg capTake 1 capsule by mouth once daily.Disp: Rfl: dextroamphetamine-amphetamine (ADDERALL) 10 mg tabletTake 1 tablet by mouth every afternoon for 30 days.Disp: 30 tabletRfl: 0 [START ON 07/26/2023] dextroamphetamine-amphetamine (ADDERALL) 10 mg tabletTake 1 tablet by mouth every afternoon for 30 days. Do not start before July 26, 2023.Disp: 30 tabletRfl: 0 escitalopram oxalate (LEXAPRO) 20 mg tabletTake 1 tablet by mouth once daily.Disp: 90 tabletRfl: 1 amphetamine-dextroamphetamine XR (ADDERALL XR) 30 mg capsuleTake 1 capsule by mouth once daily for 30 days.Disp: 30 capsuleRfl: 0 gabapentin (NEURONTIN) 600 mg tabletTake 2 tablets by mouth three times daily for 30 days.Disp: 180 tabletRfl: 0 buPROPion XL (WELLBUTRIN XL) 150 mg 24 hr tablettake 1 tablet by mouth once dailyDisp: 30 tabletRfl: 2 pregabalin (LYRICA) 50 mg capsuleTake 1 capsule by mouth three times daily for 90 days. Do not start before April 30, 2023.Disp: 90 capsuleRfl: 2 metoprolol tartrate, short acting, (LOPRESSOR) 25 mg tabletTake 1 tablet by mouth twice daily.Disp: 60 tabletRfl: 2 ergocalciferol 50,000 unit capsule (VITAMIN D2, DRISDOL)Take 1 capsule by mouth one time a week.Disp: 4 capsuleRfl: 7 cyanocobalamin 1,000 mcg/mLInject 1,000 mcg intramuscularly once every month.Disp: Rfl: [START ON 06/25/2023] dextroamphetamine-amphetamine (ADDERALL) 10 mg tabletTake 1 tablet by mouth every afternoon for 30 days. Do not start before June 25, 2023.Disp: 30 tabletRfl: 0 REVIEW OF SYSTEMS: ROS: As above, remainder of 14 point review of systems elicited and otherwise unremarkable. PHYSICAL EXAMINATION: Blood Pressure 124/76 Pulse 97 Height 170.2 cm (5' 7 ) Weight 65.8 kg (145 lb) Last Menstrual Period 02/13/2023 (Approximate) Body Mass Index 22.71 kg/m? General: Well appearing, in no acute distress. Skin: No clubbing, no cyanosis. Neck: No jugular venous distention, no carotid bruits; carotids have a normal upstroke. Lungs: Clear to auscultation bilaterally, no wheezing or rhonchi. Heart: Regular rhythm, PMI not displaced, no RV heave. Normal S1 and S2. No S3, no S4, murmurs, gallop or rub. Extremities: No peripheral edema. Normal pulses bilaterally. Neuro: Oriented to person, place and time, alert, cooperative. CARDIOVASCULAR MEDICINE TESTING: Pertinent Diagnostics/Labs/Data reviewed (ECGs and echo listed personally reviewed today or prior). WBC (k/uL) Date Value 05/26/2023 7.38 02/15/2023 7.37 07/23/2022 7.61 Hemoglobin (g/dL) Date Value 05/26/2023 14.6 02/15/2023 12.7 07/23/2022 13.0 Hematocrit (%) Date Value 05/26/2023 44.3 02/15/2023 38.1 07/23/2022 38.8 Platelet Count (k/uL) Date Value 05/26/2023 385 02/15/2023 493 07/23/2022 347 Sodium (mmol/L) Date Value 05/26/2023 139 02/15/2023 139 12/22/2022 139 Potassium (mmol/L) Date Value 05/26/2023 4.3 02/15/2023 4.4 12/22/2022 4.4 CO2 (mmol/L) Date Value 05/26/2023 28 02/15/2023 25 12/22/2022 28 BUN (mg/dL) Date Value 05/26/2023 14 02/15/2023 16 12/22/2022 13 Creatinine (mg/dL) Date Value 05/26/2023 0.77 02/15/2023 0.77 12/22/2022 0.72 Glucose (mg/dL) Date Value 05/26/2023 72 02/15/2023 98 12/22/2022 82 Magnesium (mg/dL) Date Value 07/23/2022 2.1 Event monitor ENROLLMENT: 11/08/2022 - 12/07/2022 Sinus rhythm with intermittent s (more content not included)...[facility]09-22-2023 Instructions* Patient Instructions* Jessee Hamilton MD - 05/27/2023 1:54 PM EDT Images from the original note were not included. [email or web address] documented in this encounterCleveland Clinic [facility]09-22-2023 History of Present illness Narrative* Jessee Hamilton MD - 05/27/2023 1:30 PM EDT PRIMARY CARE PHYSICIAN: Ashwini Matute [address] [place] [id number] REFERRING PHYSICIAN: No referring provider defined for this encounter. CHIEF COMPLAINT: Abnormal Holter HISTORY OF PRESENT ILLNESS: From my office notes on September 27, 2022 Probably paroxysmal atrial fibrillation, with spontaneous conversion into normal sinus rhythm. [id number] 0 based on the information we have so far. Will obtain a 30-day event monitor and obtain an echocardiogram. Slightly low potassium at the time of her symptoms: Patient encouraged to eat food high on potassium. Since then No symptoms during monitor but she thinks she had an 'event' after she returned it. Denies chest pain, shortness of breath, orthopnea, cough, edema, paroxysmal nocturnal dyspnea, lightheadedness or syncope. I have personally interviewed, confirmed and edited the above information if obtained by others. PAST MEDICAL HISTORY Diagnosis Date ADHD (attention deficit hyperactivity disorder) Ovarian cyst PAF (paroxysmal atrial fibrillation) ([facility]) 07/2022 follows with cardiology Scoliosis SVT, lower extremity ([facility]) 2019 ASA only no anticoagulants PAST SURGICAL HISTORY Procedure Laterality Date OTHER SURGICAL HISTORY (PLEASE SPECIFY) HX 2005,2006 back surgery x2 for scoliosis with marilu placement MEDICATIONS: aspirin 325 mg cap^Take 1 capsule by mouth once daily.^Disp: ^Rfl: dextroamphetamine-amphetamine (ADDERALL) 10 mg tablet^Take 1 tablet by mouth every afternoon for 30days.^Disp: 30 tablet^Rfl: 0 [START ON 07/26/2023] dextroamphetamine-amphetamine (ADDERALL) 10 mg tablet^Take 1 tablet by mouth every afternoon for 30 days. Do not start before July 26, 2023.^Disp: 30 tablet^Rfl: 0 escitalopram oxalate (LEXAPRO) 20 mg tablet^Take 1 tablet by mouth once daily.^Disp: 90 tablet^Rfl:1 amphetamine-dextroamphetamine XR (ADDERALL XR) 30 mg capsule^Take 1 capsule by mouth once daily for30 days.^Disp: 30 capsule^Rfl: 0 gabapentin (NEURONTIN) 600 mg tablet^Take 2 tablets by mouth three times daily for 30 days.^Disp: 180 tablet^Rfl: 0 buPROPion XL (WELLBUTRIN XL) 150 mg 24 hr tablet^take 1 tablet by mouth once daily^Disp: 30 tablet^Rfl: 2 pregabalin (LYRICA) 50 mg capsule^Take 1 capsule by mouth three times daily for 90 days. Do not start before April 30, 2023.^Disp: 90 capsule^Rfl: 2 metoprolol tartrate, short acting, (LOPRESSOR) 25 mg tablet^Take 1 tablet by mouth twice daily.^Disp: 60 tablet^Rfl: 2 ergocalciferol 50,000 unit capsule (VITAMIN D2, DRISDOL)^Take 1 capsule by mouth one time a week.^Disp: 4 capsule^Rfl: 7 cyanocobalamin 1,000 mcg/mL^Inject 1,000 mcg intramuscularly once every month.^Disp: ^Rfl: [START ON 06/25/2023] dextroamphetamine-amphetamine (ADDERALL) 10 mg tablet^Take 1 tablet by mouth every afternoon for 30 days. Do not start before June 25, 2023.^Disp: 30 tablet^Rfl: 0 REVIEW OF SYSTEMS: ROS: As above, remainder of 14 point review of systems elicited and otherwise unremarkable. PHYSICAL EXAMINATION: Blood Pressure 124/76 Pulse 97 Height 170.2 cm (5' 7 ) Weight 65.8 kg (145 lb) Last Menstrual Period 02/13/2023 (Approximate) Body Mass Index 22.71 kg/m General: Well appearing, in no acute distress. Skin: No clubbing, no cyanosis. Neck: No jugular venous distention, no carotid bruits; carotids have a normal upstroke. Lungs: Clear to auscultation bilaterally, no wheezing or rhonchi. Heart: Regular rhythm, PMI not displaced, no RV heave. Normal S1 and S2. No S3, no S4, murmurs, gallop or rub. Extremities: No peripheral edema. Normal pulses bilaterally. Neuro: Oriented to person, place and time, alert, cooperative. CARDIOVASCULAR MEDICINE TESTING: Pertinent Diagnostics/Labs/Data reviewed (ECGs and echo listed personally reviewed today or prior). WBC (k/uL) Date Value 05/26/2023 7.38 02/15/2023 7.37 07/23/2022 7.61 Hemoglobin (g/dL) Date Value 05/26/2023 14.6 02/15/2023 12.7 07/23/2022 13.0 Hematocrit (%) Date Value 05/26/2023 44.3 02/15/2023 38.1 07/23/2022 38.8 Platelet Count (k/uL) Date Value 05/26/2023 385 02/15/2023 493 07/23/2022 347 Sodium (mmol/L) Date Value 05/26/2023 139 02/15/2023 139 12/22/2022 139 Potassium (mmol/L) Date Value 05/26/2023 4.3 02/15/2023 4.4 12/22/2022 4.4 CO2 (mmol/L) Date Value 05/26/2023 28 02/15/2023 25 12/22/2022 28 BUN (mg/dL) Date Value 05/26/2023 14 02/15/2023 16 12/22/2022 13 Creatinine (mg/dL) Date Value 05/26/2023 0.77 02/15/2023 0.77 12/22/2022 0.72 Glucose (mg/dL) Date Value 05/26/2023 72 02/15/2023 98 12/22/2022 82 Magnesium (mg/dL) Date Value 07/23/2022 2.1 Event monitor ENROLLMENT: 11/08/2022 - 12/07/2022 Sinus rhythm with intermittent sinus tachycardia. I have personally reviewed the Holter. IMPRESSION/PLAN: PAF: 1 episode with spontaneous conversion into sinus rhythm. Event monitor without any significant arrhythmia. The patient will get a [employer] mobile and send me the tracings if necessary. I appreciate the opportunity of partaking in the care of Hue Titus and look forward to following her along with you in the future. CONTACT INFORMATION: Jessee Hamilton M.D. Staff Entry Level Account [facility] [place] [id number] [facility] [place] [address] documented in this encounterCleveland Clinic [facility]09-21-2023 NoteHNO ID: [id number] Author: Ashwini Matute PA-C Service: ? Author Type: Physician Finishing Operator Type: Progress Notes Filed: 05/26/2023 3:00 PM Note Text: This note was created using SocialVest. Subjective Hue Titus is a 33 year old female. 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 She complains of feeling more down and depressed the past few weeks. She has had crying episodes and has started drinking alcohol daily to cope with her depression and chronic pain. She is having a difficult time getting over the deaths of her cousin and grandmother last year. She says there is also a lot of stress at home and she is not getting along with her mom and brother. 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 She has constant back and foot pain despite her current meds. She started seeing an ortho surgeon at for her back and is awaiting an appt to discuss next steps in her treatment. As for her a fib, she had reoccurrences in December and in March, both of which lasted a couple of minutes. She has not been back to cardiology recently due to insurance changes. Past Medical History: PAST MEDICAL HISTORY Diagnosis Date ADHD (attention deficit hyperactivity disorder) Ovarian cyst PAF (paroxysmal atrial fibrillation) ([facility]) 07/2022 follows with cardiology Scoliosis SVT, lower extremity (HCC) 2019 ASA only no anticoagulants Past Surgical History: PAST SURGICAL HISTORY Procedure Laterality Date OTHER SURGICAL HISTORY (PLEASE SPECIFY) HX 2005,2006 back surgery x2 for scoliosis with marilu placement Family History: FAMILY HISTORY Problem Relation Age of Onset other (osteoarthritis [Other]) Mother Scoliosis Father Scoliosis Paternal Aunt Social History: Social History Tobacco Use Smoking status: Never Smokeless tobacco: Never Tobacco comments: vapes Substance Use Topics Alcohol use: No Drug use: No Current Medications: aspirin 325 mg cap, Take 1 capsule by mouth once daily., Disp: , Rfl: amphetamine-dextroamphetamine XR (ADDERALL XR) 30 mg capsule, Take 1 capsule by mouth once daily for 30 days., Disp: 30 capsule, Rfl: 0 gabapentin (NEURONTIN) 600 mg tablet, Take 2 tablets by mouth three times daily for 30 days., Disp: 180 tablet, Rfl: 0 buPROPion XL (WELLBUTRIN XL) 150 mg 24 hr tablet, take 1 tablet by mouth once daily, Disp: 30 tablet, Rfl: 2 pregabalin (LYRICA) 50 mg capsule, Take 1 capsule by mouth three times daily for 90 days. Do not start before April 30, 2023., Disp: 90 capsule, Rfl: 2 metoprolol tartrate, short acting, (LOPRESSOR) 25 mg tablet, Take 1 tablet by mouth twice daily., Disp: 60 tablet, Rfl: 2 ergocalciferol 50,000 unit capsule (VITAMIN D2, DRISDOL), Take 1 capsule by mouth one time a week., Disp: 4 capsule, Rfl: 7 cyanocobalamin 1,000 mcg/mL, Inject 1,000 mcg intramuscularly once every month., Disp: , Rfl: dextroamphetamine-amphetamine (ADDERALL) 10 mg tablet, Take 1 tablet by mouth every afternoon for 30 days., Disp: 30 tablet, Rfl: 0 [START ON 06/25/2023] dextroamphetamine-amphetamine (ADDERALL) 10 mg tablet, Take 1 tablet by mouth every afternoon for 30 days. Do not start before June 25, 2023., Disp: 30 tablet, Rfl: 0 [START ON 07/26/2023] dextroamphetamine-amphetamine (ADDERALL) 10 mg tablet, Take 1 tablet by mouth every afternoon for 30 days. Do not start before July 26, 2023., Disp: 30 tablet, Rfl: 0 escitalopram oxalate (LEXAPRO) 20 mg tablet, Take 1 tablet by mouth once daily., Disp: 90 tablet, Rfl: 1 [DISCONTINUED] dextroamphetamine-amphetamine (ADDERALL) 10 mg tablet, Take 1 tablet by mouth every afternoon for 30 days. Do not start before July 18, 2023., Disp: 30 tablet, Rfl: 0 [DISCONTINUED] dextroamphetamine-amphetamine (ADDERALL) 10 mg tablet, Take 1 tablet by mouth every afternoon for 30 days. Do not start before June 18, 2023., Disp: 30 tablet, Rfl: 0 [DISCONTINUED] dextroamphetamine-amphetamine (ADDERALL) 10 mg tablet, Take 1 tablet by mouth every afternoon for 30 days., Disp: 30 tablet, Rfl: 0 [DISCONTINUED] escitalopram oxalate (LEXAPRO) 10 mg tablet, Take 1 tablet by mouth once daily., Disp: 90 tablet, Rfl: 1 perflutren lipid microspheres 1.3 mL in NaCl (PF) 0.9% 10 mL injection (DEFINITY), , INTRAVENOUS, DIRECTED PRN, Jessee Hamilton MD sodium chloride 0.9 % (flush) 10 mL (BD POSIFLUSH), 10 mL, INTRAVENOUS, DIRECTED PRN, Jessee Hamilton MD Allergies: ALLERGIES No Known Allergies Vitals: BP 122/87 Pulse 71 Temp 98.3 Ht 5' 7 (1.70m) Wt 142 lb (64.4kg) SpO2 98% LMP 02/13/2023 BMI 22.24 kg/(m2). Review of Systems See HPI. ROS otherwise negative. Objective BP 122/87 (BP Site: Right Arm, BP Position: Sitting, BP Cuff Size: Regular Adult) Pulse 71 Temp 36.8 ?C (98.3 ?F) Ht 170.2 cm (5' 7 ) Wt (more content not included)...[facility]09-21-2023 History of Present illness Narrative* Ashwini Matute PA-C - 05/26/2023 2:28 PM EDT This note was created using [employer]. Subjective Hue Titus is a 33 year old female. 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 She complains of feeling more down and depressed the past few weeks. She has had crying episodes and has started drinking alcohol daily to cope with her depression and chronic pain. She is having a difficult time getting over the deaths of her cousin and grandmother last year. She says there is also a lot of stress at home and she is not getting along with her mom and brother. 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 She has constant back and foot pain despite her current meds. She started seeing an ortho surgeo n at for her back and is awaiting an appt to discuss next steps in her treatment. As for her a fib, she had reoccurrences in December and in March, both of which lasted a couple of minutes. She has not been back to cardiology recently due to insurance changes. Past Medical History: PAST MEDICAL HISTORY Diagnosis Date ADHD (attention deficit hyperactivity disorder) Ovarian cyst PAF (paroxysmal atrial fibrillation) ([facility]) 07/2022 follows with cardiology Scoliosis SVT, lower extremity ([facility]) 2018 ASA only no anticoagulants Past Surgical History: PAST SURGICAL HISTORY Procedure Laterality Date OTHER SURGICAL HISTORY (PLEASE SPECIFY) HX 2004,2005 back surgery x2 for scoliosis with marilu placement Family History: FAMILY HISTORY Problem Relation Age of Onset other (osteoarthritis [Other]) Mother Scoliosis Father Scoliosis Paternal Aunt Social History: Social History Tobacco Use Smoking status: Never Smokeless tobacco: Never Tobacco comments: vapes Substance Use Topics Alcohol use: No Drug use: No Current Medications: aspirin 325 mg cap, Take 1 capsule by mouth once daily., Disp: , Rfl: amphetamine-dextroamphetamine XR (ADDERALL XR) 30 mg capsule, Take 1 capsule by mouth once daily for 30 days., Disp: 30 capsule, Rfl: 0 gabapentin (NEURONTIN) 600 mg tablet, Take 2 tablets by mouth three times daily for 30 days., Disp:180 tablet, Rfl: 0 buPROPion XL (WELLBUTRIN XL) 150 mg 24 hr tablet, take 1 tablet by mouth once daily, Disp: 30 tablet, Rfl: 2 pregabalin (LYRICA) 50 mg capsule, Take 1 capsule by mouth three times daily for 90 days. Do not start before April 30, 2023., Disp: 90 capsule, Rfl: 2 metoprolol tartrate, short acting, (LOPRESSOR) 25 mg tablet, Take 1 tablet by mouth twice daily., Disp: 60 tablet, Rfl: 2 ergocalciferol 50,000 unit capsule (VITAMIN D2, DRISDOL), Take 1 capsule by mouth one time a week.,Disp: 4 capsule, Rfl: 7 cyanocobalamin 1,000 mcg/mL, Inject 1,000 mcg intramuscularly once every month., Disp: , Rfl: dextroamphetamine-amphetamine (ADDERALL) 10 mg tablet, Take 1 tablet by mouth every afternoon for 30 days., Disp: 30 tablet, Rfl: 0 [START ON 06/25/2023] dextroamphetamine-amphetamine (ADDERALL) 10 mg tablet, Take 1 tablet by mouthevery afternoon for 30 days. Do not start before June 25, 2023., Disp: 30 tablet, Rfl: 0 [START ON 07/26/2023] dextroamphetamine-amphetamine (ADDERALL) 10 mg tablet, Take 1 tablet by mouthevery afternoon for 30 days. Do not start before July 26, 2023., Disp: 30 tablet, Rfl: 0 escitalopram oxalate (LEXAPRO) 20 mg tablet, Take 1 tablet by mouth once daily., Disp: 90 tablet, Rfl: 1 [DISCONTINUED] dextroamphetamine-amphetamine (ADDERALL) 10 mg tablet, Take 1 tablet by mouth every afternoon for 30 days. Do not start before July 18, 2023., Disp: 30 tablet, Rfl: 0 [DISCONTINUED] dextroamphetamine-amphetamine (ADDERALL) 10 mg tablet, Take 1 tablet by mouth every afternoon for 30 days. Do not start before June 18, 2023., Disp: 30 tablet, Rfl: 0 [DISCONTINUED] dextroamphetamine-amphetamine (ADDERALL) 10 mg tablet, Take 1 tablet by mouth every afternoon for 30 days., Disp: 30 tablet, Rfl: 0 [DISCONTINUED] escitalopram oxalate (LEXAPRO) 10 mg tablet, Take 1 tablet by mouth once daily., Disp: 90 tablet, Rfl: 1 perflutren lipid microspheres 1.3 mL in NaCl (PF) 0.9% 10 mL injection (DEFINITY), , INTRAVENOUS, DIRECTED PRN, Jessee Hamilton MD sodium chloride 0.9 % (flush) 10 mL (BD POSIFLUSH), 10 mL, INTRAVENOUS, DIRECTED PRN, Jessee Hamilton MD Allergies: ALLERGIES No Known Allergies Vitals: BP 122/87 Pulse 71 Temp 98.3 Ht 5' 7 (1.70m) Wt 142 lb (64.4kg) SpO2 98% LMP 02/13/2023 BMI 22.24 kg/(m^2). Review of Systems See HPI. ROS otherwise negative. Objective BP 122/87 (BP Site: Right Arm, BP Position: Sitting, BP Cuff Size: Regular Adult) Pulse 71 Temp36.8 C (98.3 F) Ht 170.2 cm (5' 7 ) Wt 64.4 kg (142 lb) LMP 02/13/2023 (Approximate) SpO2 98% BMI 22.24 kg/m Physical Exam Vitals reviewed. Constitutional: General: She is not in acute distress. Appearance: Normal appearance. She is normal weight. She is not ill-appearing, toxic-appearing or diaphoretic. HENT: Head: Normocephalic and atraumatic. Cardiovascular: Rate and Rhythm: Normal rate and regular rhythm. Pulmonary: Effort: Pulmonary effort is normal. No respiratory distress. Breath sounds: Normal breath sounds. No stridor. No wheezing, rhonchi or rales. Chest: Chest wall: No tenderness. Musculoskeletal: General: No swelling. Neurological: General: No focal deficit present. Mental Status: She is alert and oriented to person, place, and time. Psychiatric: Mood and Affect: Mood normal. Behavior: Behavior normal. Comments: Tearful at times Assessment and Plan ASSESSMENT/PLAN: 1. Moderate episode of recurrent major depressive disorder (HCC) - ICD9: 296.32, ICD10: F33.1 (primary diagnosis) Increase Lexapro to 20mg daily. I discussed the fact that it will take up to 6 weeks to notice an improvement from the higher dose. I also encouraged her to contact local psych/counseling offices forspecific grief and alcohol abuse counseling. Contact info printed and given to pt. 2. Attention deficit hyperactivity disorder (ADHD), unspecified ADHD type - ICD9: 314.01, ICD10: F90.9 Continue Adderall at current doses. PDMP website checked and validated. All prescriptions have been APPROPRIATELY filled. No suspiciousactivity was identified. 05/26/2023 by LEA Velasco-C - DEXTROAMPHETAMINE-AMPHETAMINE 10 MG TABLET - DEXTROAMPHETAMINE-AMPHETAMINE 10 MG TABLET - DEXTROAMPHETAMINE-AMPHETAMINE 10 MG TABLET - TOX SCREEN ROUT UR 3. Alcohol abuse - ICD9: 305.00, ICD10: F10.10 Pt will looking into counseling/support group services for alcohol abuse - TOX SCREEN ROUT UR - COMP METABOLIC PANEL - CBC + DIFF 4. Juvenile idiopathic scoliosis of thoracolumbar region - ICD9: 737.30, ICD10: M41.115 F/u with ortho to determine next course of treatment. If no surgical intervention is needed, she will need to f/u back up with pain management. 5. Paroxysmal atrial fibrillation (HCC) - ICD9: 427.31, ICD10: I48.0 Avoidance of alcohol recommended as alcohol is a potential a fib trigger. F/u with cardiology 6. Neuropathy - ICD9: 355.9, ICD10: G62.9 Continue current meds. She will continue Lyrica and gabapentin both prescribed by her previous PCP.I again discussed them being duplicate medications but she said she has tried and failed other paincontrol options including cymbalta. I will refer back to pain management if needed after ortho assessment and treatment 7. Encounter for immunization - ICD9: V03.89, ICD10: Z23 - INFLUENZA VACCINE, AGE 6 MO - 64 YR, QUADRIVALENT (AFLURIA, FLULAVAL, FLUZONE) Ashwini Matute PA-C documented in this encounterC[facility] Instructions* Patient Instructions* Lorrie Vargas MA - 05/26/2023 1:23 PM EDT [facility] FACTS Please visit our lab at least 3-5 days before your scheduled appointment to have your lab work drawn, if lab work is ordered. This will allow us the ability to review your lab work results with you during your scheduled visit. [facility] [place]: Lab is open Tuesday - Tuesday from 6:30am to 5pm and open 8am -12pm on Saturdays. [place] [facility]: Tuesday- 7:30am to 5:30pm. Fridays 7:30-5:00pm and Tuesday 8:00am to 12:00 pm. Routine Lab Orders 60 days after they are entered. If your lab orders , you may be required to wait in the lab while they are reinstated FUTURE ORDERS are lab tests to be completed on the EXPECTED date. These orders 60 days afterthe expected date. STANDING ORDERS are recurring orders with an expiration date. The interval will indicate how often the test should be completed. FASTING LAB means nothing to eat or drink (except water) 10-12 hours before your blood is drawn. CT/MRI/IVP If you have one of these radiology exams ordered along with blood work, please complete the blood work at least one day prior to the scheduled exam. My Chart Schedule My Appointment enables you to view your established primary care provider's open schedule and book an appointment online in real-time. This feature is available in internal medicine, family medicine, or pediatrics at any of our [facility] locations and main campus. documented in this encounterC[facility]09-18-2023 Miscellaneous Notes* Telephone Encounter - Ashwini Matute PA-C - 05/23/2023 1:06 PM EDT The following approved medication requests have been transmitted electronically. Requested Prescriptions Signed Prescriptions Disp Refills amphetamine-dextroamphetamine XR (ADDERALL XR) 30 mg capsule 30 capsule 0 Sig: Take 1 capsule by mouth once daily for 30 days. Ashwini Matute PA-C PDMP website checked and validated. All prescriptions have been APPROPRIATELY filled. No suspiciousactivity was identified. 05/23/2023 by Ashwini Matute PA-C documented in this encounterC[facility]09-14-2023 Miscellaneous Notes* Telephone Encounter - Ashwini Matute PA-C - 05/19/2023 1:38 PM EDT The following approved medication requests have been transmitted electronically. Requested Prescriptions Signed Prescriptions Disp Refills dextroamphetamine-amphetamine (ADDERALL) 10 mg tablet 30 tablet 0 Sig: Take 1 tablet by mouth every afternoon for 30 days. Do not start before July 18, 2023. Authorizing Provider: ASHWINI MATUTE dextroamphetamine-amphetamine (ADDERALL) 10 mg tablet 30 tablet 0 Sig: Take 1 tablet by mouth every afternoon for 30 days. Do not start before June 18, 2023. Authorizing Provider: ASHWINI MATUTE dextroamphetamine-amphetamine (ADDERALL) 10 mg tablet 30 tablet 0 Sig: Take 1 tablet by mouth every afternoon for 30 days. Authorizing Provider: ASHWINI MATUTE PA-Cr [facility] website checked and validated. All prescriptions have been APPROPRIATELY filled. No suspiciousactivity was identified. 05/19/2023 by Ashwini Matute PA-C It is too soon for the refills on the XR dose * Telephone Encounter - Teagan Green MA - 05/19/2023 10:59 AM EDT Last OV: 02/22/23 Next OV: 05/26/23 Patient's request for medication is as follows: Requested Prescriptions Pending Prescriptions Disp Refills amphetamine-dextroamphetamine XR (ADDERALL XR) 30 mg capsule 30 capsule 0 Sig: Take 1 capsule by mouth once daily for 30 days. Do not start before July 18, 2023. dextroamphetamine-amphetamine (ADDERALL) 10 mg tablet 30 tablet 0 Sig: Take 1 tablet by mouth every afternoon for 30 days. Do not start before July 18, 2023. amphetamine-dextroamphetamine XR (ADDERALL XR) 30 mg capsule 30 capsule 0 Sig: Take 1 capsule by mouth once daily for 30 days. Do not start before June 18, 2023. ADDERALL XR 30 mg capsule 30 capsule 0 Sig: Take 1 capsule by mouth once daily for 30 days. dextroamphetamine-amphetamine (ADDERALL) 10 mg tablet 30 tablet 0 Sig: Take 1 tablet by mouth every afternoon for 30 days. Do not start before June 18, 2023. dextroamphetamine-amphetamine (ADDERALL) 10 mg tablet 30 tablet 0 Sig: Take 1 tablet by mouth every afternoon for 30 days. Please approve the above prescription(s) to electronically send to pharmacy. Teagan Green MA documented in this encounterC[facility]09-13-2023 Miscellaneous Notes* Telephone Encounter - Ashwini Matute PA-C - 05/18/2023 12:38 PM EDT The following approved medication requests have been transmitted electronically. Requested Prescriptions Signed Prescriptions Disp Refills gabapentin (NEURONTIN) 600 mg tablet 180 tablet 0 Sig: Take 2 tablets by mouth three times daily for 30 days. Authorizing Provider: ASHWINI MATUTE PA-C PDMP website checked and validated. All prescriptions have been APPROPRIATELY filled. No suspiciousactivity was identified. 05/18/2023 by Ashwini Matute PA-C * Telephone Encounter - Altagracia Leroy MA - 05/18/2023 11:25 AM EDT Last ov: 02/22/23 Next ov: 05/26/23 Patient requests via MyChart refills as follows: Requested Prescriptions Pending Prescriptions Disp Refills gabapentin (NEURONTIN) 600 mg tablet 180 tablet 0 Sig: Take 2 tablets by mouth three times daily for 30 days. Please review and advise. Altagracia Leroy MA documented in this encounterCleveland [facility]09-11-2023 Miscellaneous Notes* Telephone Encounter - Lorrie Vargas MA - 05/16/2023 9:55 AM EDT Pharmacy electronically requesting refills as follows: Requested Prescriptions Pending Prescriptions Disp Refills buPROPion XL (WELLBUTRIN XL) 150 mg 24 hr tablet [Pharmacy Med Name: BUPROPION HCL XL 150 MG TABLET] 30 tablet 2 Sig: take 1 tablet by mouth once daily Please review and advise. Lorrie Vargas MA documented in this encounterC[facility]08-24-2023 Miscellaneous Notes* Telephone Encounter - Ashwini Matute PA-C - 04/28/2023 11:28 AM EDT The following approved medication requests have been transmitted electronically. Requested Prescriptions Signed Prescriptions Disp Refills pregabalin (LYRICA) 50 mg capsule 90 capsule 2 Sig: Take 1 capsule by mouth three times daily for 90 days. Do not start before April 30, 2023. Authorizing Provider: ASHWINI MATUTE PA-C PDMP website checked and validated . All prescriptions have been APPROPRIATELY filled. No suspicious activity was identified. 04/28/2023 by Ashwini Matute PA-C documented in this encounterCleveland Clinic [facility]08-23-2023 Miscellaneous Notes* Telephone Encounter - Ashwini Matute PA-C - 04/27/2023 12:47 PM EDT The following approved medication requests have been transmitted electronically. Requested Prescriptions Signed Prescriptions Disp Refills dextroamphetamine-amphetamine (ADDERALL) 10 mg tablet 30 tablet 0 Sig: Take 1 tablet by mouth every afternoon for 30 days. Authorizing Provider: ASHWINI MATUTE PA-C PDMP website checked and validated. All prescriptions have been APPROPRIATELY filled. No suspiciousactivity was identified. 04/27/2023 by Ashwini Matute PA-C * Telephone Encounter - Ashia Thrasher LPN - 04/27/2023 8:40 AM EDT Patient phones requesting refills as follows: Requested Prescriptions Pending Prescriptions Disp Refills dextroamphetamine-amphetamine (ADDERALL) 10 mg tablet 30 tablet 0 Sig: Take 1 tablet by mouth every afternoon for 30 days. PENG: 02/22/2023 Please review and advise. Ashia Thrasher LPN documented in this encounterCleveland [facility]08-17-2023 Miscellaneous Notes* Telephone Encounter - Ashwini Matute PA-C - 04/21/2023 4:20 PM EDT The following approved medication requests have been transmitted electronically. Requested Prescriptions Signed Prescriptions Disp Refills amphetamine-dextroamphetamine XR (ADDERALL XR) 30 mg biphasic capsule 30 capsule 0 Sig: Take 1 capsule by mouth once daily for 30 days. Ashwini Matute PA-C PDMP website checked and validated. All prescriptions have been APPROPRIATELY filled. No suspiciousactivity was identified. 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 30 day supply Rx sent. Will defer additional refills to PCP. I know I had previously discussed with patient ensuring she determines who would maintain Rx while in [place]. Has been filled by provider in [place]. Chitra Burnett PA-C * Telephone Encounter - Kristie Thibodeaux APRN.CNP - 03/31/2023 10:50 AM EDT Chitra- you have seen patient recently. She appears to be taking Lyrica and Gabapentin? Kristie Thibodeaux APRN.CNP * Telephone Encounter - Teagan Green MA - 03/31/2023 10:22 AM EDT Last OV: 02/22/23 Next OV: 05/26/23 Patient's request for medication is as follows: Requested Prescriptions Pending Prescriptions Disp Refills pregabalin (LYRICA) 50 mg capsule 90 capsule 0 Sig: Take 1 capsule by mouth three times daily for 30 days. Please approve the above prescription(s) to electronically send to pharmacy. Teagan Green MA documented in this encounterCleveland Clinic [facility]07-19-2023 Miscellaneous Notes* Telephone Encounter - Aria Valenzuela APRN.CNP - 03/23/2023 2:36 PM EDT The following approved medication requests have been transmitted electronically. Requested Prescriptions Signed Prescriptions Disp Refills amphetamine-dextroamphetamine XR (ADDERALL XR) 30 mg biphasic capsule 30 capsule 0 Sig: Take 1 capsule by mouth once daily for 30 days. Aria Valenzuela APRN.CNP * Telephone Encounter - Radha Armstrong MA - 03/23/2023 12:54 PM EDT Pended with note to dispense generic Requested Prescriptions Pending Prescriptions Disp Refills amphetamine-dextroamphetamine XR (ADDERALL XR) 30 mg biphasic capsule 30 capsule 0 Sig: Take 1 capsule by mouth once daily for 30 days. Please review and advise. Radha Armstrong MA documented in this encounterC[facility]07-18-2023 Miscellaneous Notes* Telephone Encounter - Kristie Thibodeaux APRN.CNP - 03/22/2023 4:46 PM EDT The following approved medication requests have been transmitted electronically. Requested Prescriptions Pending Prescriptions Disp Refills ADDERALL XR 30 mg biphasic capsule 30 capsule 0 Sig: Take 1 capsule by mouth once daily for 30 days. Kristie Thibodeaux APRN.CNP * Telephone Encounter - Altagracia Leroy MA - 03/22/2023 4:18 PM EDT Patient requests via MyChart refills as follows: Requested Prescriptions Pending Prescriptions Disp Refills ADDERALL XR 30 mg biphasic capsule 30 capsule 0 Sig: Take 1 capsule by mouth once daily for 30 days. Please review and advise. Altagracia Leroy MA documented in this encounterC[facility]07-18-2023 Miscellaneous Notes* Telephone Encounter - Lorrie Vargas MA - 03/22/2023 1:19 PM EDT Patient phones requesting refills as follows: Requested Prescriptions Pending Prescriptions Disp Refills ADDERALL XR 30 mg biphasic capsule 30 capsule 0 Sig: Take 1 capsule by mouth once daily for 30 days. Please review and advise. Lorrie Vargas MA documented in this encounterCleveland Clinic [facility]07-11-2023 NoteClinical Event: Clinical Event Note: TopicLP 03/14/23 - Post-procedure phone call Details After the patient's myelogram, the patient inadvertently administered her prescribed [employer] acting agents, which she was supposed to hold for 24 hours post-myelogram. The patient was held and observed for an extended period of time. On discharge she was told to report to the ED if she experiences signs/symptoms consistent with a seizure. This afternoon (03/15/23), the patient states that she did not experience any adverse reactions and currently feels well. Electronic Signatures: James Ramirez (Resident)) (Signed 15-Mar-2023 14:52) Authored: Clinical Event Note Dina Dennis) (Signed 18-Mar-2023 08:56) Co-Signer: Clinical Event Note Last Updated: 18-Mar-2023 08:56 by Dina Dennis)[facility] 2023 Miscellaneous Notes* Telephone Encounter - Ashwini Matute PA-C - 2023 10:04 AM EDT The following approved medication requests have been transmitted electronically. Requested Prescriptions Signed Prescriptions Disp Refills pregabalin (LYRICA) 50 mg capsule 90 capsule 0 Sig: Take 1 capsule by mouth three times daily for 30 days. metoprolol tartrate, short acting, (LOPRESSOR) 25 mg tablet 60 tablet 2 Sig: Take 1 tablet by mouth twice daily. dextroamphetamine-amphetamine (ADDERALL) 10 mg tablet 30 tablet 0 Sig: Take 1 tablet by mouth every afternoon for 30 days. ADDERALL XR 30 mg biphasic capsule 30 capsule 0 Sig: Take 1 capsule by mouth once daily for 30 days. Ashwini Matute PA-C PDMP website checked and validated. All prescriptions have been APPROPRIATELY filled. No suspiciousactivity was identified. 2023 by Ashwini Matute PA-C * Telephone Encounter - Altagracia Leroy MA - 2023 7:57 AM EDT Last ov: 02/22/23 Next ov: 05/26/23 Patient's request for medication is as follows: Requested Prescriptions Pending Prescriptions Disp Refills pregabalin (LYRICA) 50 mg capsule 90 capsule 0 Sig: Take 1 capsule by mouth three times daily for 30 days. metoprolol tartrate, short acting, (LOPRESSOR) 25 mg tablet 60 tablet 0 Sig: Take 1 tablet by mouth twice daily. dextroamphetamine-amphetamine (ADDERALL) 10 mg tablet Sig: Take 1 tablet by mouth every afternoon. ADDERALL XR 30 mg biphasic capsule 30 capsule 0 Sig: Take 1 capsule by mouth once daily for 30 days. Please approve the above prescription(s) to electronically send to pharmacy. Altagracia Leroy MA documented in this encounterCleveland Clinic [facility]07-10-2023 NotePre-procedure Verification and Time Out: Pre-Procedure Verification and Time Out: Procedure Locationprocedure area HUDDLE - Pre-procedure Verificationcompleted TIME OUT - Final Verificationcompleted immediately prior to procedure start DEBRIEFcompleted General Information: Anesthesia Critical Care: Non-Anesthesia Date/Time of Procedure: 14-Mar-2023 Indication(s)/Pre Procedure Diagnoses: right lumbar radiculopathy. History of scoliosis s/p thoracolumbar fusion Post-Procedure Diagnosis: right lumbar radiculopathy. History of scoliosis s/p thoracolumbar fusion Procedure Name: LP + Myelogram Findings: scoliosis s/p thoracolumbar fusion Procedure performed by: Dr. Dennis Finishing Operator(s): none Dr. Ramirez Estimated Blood Loss (mL): none Specimen: yes. CSF Informed Consent: written consent obtained Procedure Details: Procedure Details: Lower back region was prepped and draped in sterile fashion. Under direct fluoroscopic guidance L5-S1 vertebral levels were identified. 10 ml of 1% Lidocaine was used for local analgesia. Lumbar puncture was performed using a 20g spinal needle. Placement was confirmed a L5-S1 radiographically.15 mL of clear CSF collected in total. Following this, 10 mL of Omnipaque 300 was injected. Intra-thecal injection was confirmed. The patient was sent to CT for myelogram imaging. The patient tolerated the procedure well without any immediate or clinically apparent complications. Tolerance: good Complications: None Attestation: Note Completion: I am a:Resident/Fellow Attending AttestationI was present for the entire procedure Electronic Signatures: James Ramirez (Resident)) (Signed 14-Mar-2023 14:52) Authored: Pre-procedure Verification and Time Out, General Information, Procedure Details, Note Completion Dina Dennis) (Signed 15-Mar-2023 13:22) Authored: Procedure Details Co-Signer: Pre-procedure Verification and Time Out, General Information, Procedure Details, Note Completion Last Updated: 15-Mar-2023 13:22 by Dina Dennis)[facility] 03-03-2023 NoteHNO ID: [id number] Author: Aria Izquierdo PA-C Service: ? Author Type: Physician Finishing Operator Type: Procedures Filed: 03/03/2023 12:16 PM Note Text: IUD INSERTION PROCEDURE Date/Time: 03/03/2023 12:08 PM Performed by: Aria Izquierdo PA-C Authorized by: Aria Izquierdo PA-C Indication: contraception Diagnosis: (Z30.430) Encounter for IUD insertion (primary encounter diagnosis) Patient's last menstrual period was 02/13/2023 (approximate). Informed Consent Consent Obtained: Written [place] Protocol A moment to CARE was completed. SIGN IN Personnel directly involved with the procedure wore the appropriate PPE. Special Equipment: N/A Patient/Surrogate Stated/Verified: Patient name, Date of , Relevant allergies and Intended procedure TIME OUT Intended patient and procedure match the source document(s). Consent documented and matches the intended procedure. Relevant labs, photos, and/or imaging studies have been reviewed. Correct side/site marked and visible. No medications required for procedure. No fire risk assessment and interventions applicable. Implant(s) inserted. Correct implant(s) confirmed including size and side and Expiration date(s) reviewed. Pre-Procedure Details: Personnel: Personnel directly involved with the procedure wore the appropriate PPE Procedure Details: Urine test: negative Speculum placed in vagina. Cervix cleaned and prepped. Tenaculum applied to cervix. Uterus sounded. (required dilation) Uterus sound depth (cm): 6 IUD inserted successfully: yes (initial attempt unsiccessful, IUD too low) IUD type: Mirena IUD Source: Office provided Strings trimmed. Post-Procedure Details: Patient tolerated the procedure with difficulty Patient Education: side effects discussed with patient including irregular spotting. Patient to follow-up PRN any problems. SIGN OUT All instruments, equipment, possible retained foreign bodies accounted for. [facility]06-23-2023 Miscellaneous Notes* Telephone Encounter - Mary Crowe PA-C - 02/25/2023 9:06 AM EDT The following approved medication requests have been transmitted electronically. Requested Prescriptions Signed Prescriptions Disp Refills miSOPROStol (CYTOTEC) 200 mcg tablet 2 tablet 0 Si tablet as directed for 2 doses. Take by mouth 2 days prior to appt, and the second pill 8-10hours prior to ASSURANCE OFFICER appt for cervical dilation. Mary Crowe PA-C (For Aria Izquierdo PA-C) * Telephone Encounter - Mckenna Gibson RN - 02/25/2023 8:40 AM EDT Cytotec cancelled by PCP Req reorder for IUD appt Requested Prescriptions Pending Prescriptions Disp Refills miSOPROStol (CYTOTEC) 200 mcg tablet 2 tablet 0 Si tablet as directed for 2 doses. Take by mouth 2 days prior to appt, and the second pill 8-10hours prior to ASSURANCE OFFICER appt for cervical dilation. [facility] NoteHNO ID: [id number] Author: Ashwini Matute PA-C Service: ? Author Type: Physician Finishing Operator Type: Progress Notes Filed: 02/22/2023 3:32 PM Note Text: This note was created using [employer]. Subjective Hue Titus is a 32 year old female. HPI Hue Titus is a 32 year old female who presents today accompanied by her boyfriend for f/u after starting lexapro at her last visit. She has not noticed much of an improvement from it and still admits to feeling down and depressed. She does not have any anxiety and says anxiety was the reason she was initially prescribed it a few years ago. She is having a difficult time as it has been one year since her cousin's . She also feels down and discouraged about her back pain. She has started seeing a new marketing finance specialist at . Past Medical History: PAST MEDICAL HISTORY Diagnosis Date ADHD (attention deficit hyperactivity disorder) Ovarian cyst PAF (paroxysmal atrial fibrillation) ([facility]) 07/2022 follows with cardiology Scoliosis SVT, lower extremity ([facility]) 2019 ASA only no anticoagulants Past Surgical History: PAST SURGICAL HISTORY Procedure Laterality Date OTHER SURGICAL HISTORY (PLEASE SPECIFY) HX 2005,2006 back surgery x2 for scoliosis with marilu placement Family History: FAMILY HISTORY Problem Relation Age of Onset other (osteoarthritis [Other]) Mother Scoliosis Father Scoliosis Paternal Aunt Social History: Social History Tobacco Use Smoking status: Never Smokeless tobacco: Never Tobacco comments: vapes Substance Use Topics Alcohol use: No Drug use: No Current Medications: ADDERALL XR 30 mg biphasic capsule, Take 1 capsule by mouth once daily for 30 days., Disp: 30 capsule, Rfl: 0 dextroamphetamine-amphetamine (ADDERALL) 10 mg tablet, Take 10 mg by mouth every afternoon., Disp: , Rfl: pregabalin (LYRICA) 50 mg capsule, Take 1 capsule by mouth three times daily for 30 days., Disp: , Rfl: gabapentin (NEURONTIN) 600 mg tablet, Take 2 tablets by mouth three times daily for 30 days., Disp: , Rfl: cyanocobalamin 1,000 mcg/mL, Inject 1,000 mcg intramuscularly once every month., Disp: , Rfl: metoprolol tartrate, short acting, (LOPRESSOR) 25 mg tablet, Take 1 tablet by mouth twice daily., Disp: 60 tablet, Rfl: 0 ergocalciferol 50,000 unit capsule (VITAMIN D2, DRISDOL), Take 1 capsule by mouth one time a week., Disp: 4 capsule, Rfl: 7 buPROPion XL (WELLBUTRIN XL) 150 mg 24 hr tablet, Take 1 tablet by mouth once daily., Disp: 30 tablet, Rfl: 2 escitalopram oxalate (LEXAPRO) 10 mg tablet, Take 1 tablet by mouth once daily., Disp: 90 tablet, Rfl: 1 [DISCONTINUED] escitalopram oxalate (LEXAPRO) 10 mg tablet, 0.5 tab daily for 1 week then 1 tab daily, Disp: 30 tablet, Rfl: 1 perflutren lipid microspheres 1.3 mL in NaCl (PF) 0.9% 10 mL injection (DEFINITY), , INTRAVENOUS, DIRECTED PRN, Jessee Hamilton MD sodium chloride 0.9 % (flush) 10 mL (BD POSIFLUSH), 10 mL, INTRAVENOUS, DIRECTED PRN, Jessee Hamilton MD Allergies: ALLERGIES No Known Allergies Vitals: BP 110/79 Pulse 90 Ht 5' 7 (1.70m) Wt 124 lb (56.2kg) SpO2 98% LMP 01/12/2023 BMI 19.42 kg/(m2). Review of Systems see HPI. ROS otherwise negative. Objective BP 110/79 Pulse 90 Ht 170.2 cm (5' 7 ) Wt 56.2 kg (124 lb) LMP 01/12/2023 SpO2 98% BMI 19.42 kg/m? Physical Exam Vitals reviewed. Constitutional: General: She is not in acute distress. Appearance: Normal appearance. She is normal weight. She is not ill-appearing, toxic-appearing or diaphoretic. Cardiovascular: Rate and Rhythm: Normal rate and regular rhythm. Pulmonary: Effort: Pulmonary effort is normal. No respiratory distress. Breath sounds: Normal breath sounds. No stridor. No wheezing, rhonchi or rales. Chest: Chest wall: No tenderness. Neurological: Mental Status: She is alert. Psychiatric: Mood and Affect: Mood normal. Behavior: Behavior normal. Assessment and Plan ASSESSMENT/PLAN: 1. Mild episode of recurrent major depressive disorder (HCC) - ICD9: 296.31, ICD10: F33.0 (primary diagnosis) Discussed treatment options and suggested adding wellbutrin to Lexapro. She will start with 150mg and f/u in 4-6 weeks with an update on her symptoms. 2. Attention deficit hyperactivity disorder (ADHD), unspecified ADHD type - ICD9: 314.01, ICD10: F90.9 No refills needed at this time. I will be taking over the prescribing of her Adderall Rx's from now on as she is no longer seeing her previous PCP in [place]. 3. Vitamin D deficiency - ICD9: 268.9, ICD10: E55.9 Start high dose vitamin D once weekly. Rx sent in. [facility]06-20-2023 History of Present illness Narrative* KRYSTIAN Garcia - 02/22/2023 3:26 PM EDT This note was created using [employer]. Subjective Hue Titus is a 32 year old female. HPI Hue Titus is a 32 year old female who presents today accompanied by her boyfriend for f/u after starting lexapro at her last visit. She has not noticed much of an improvement from it and stilladmits to feeling down and depressed. She does not have any anxiety and says anxiety was the reasonshe was initially prescribed it a few years ago. She is having a difficult time as it has been one year since her cousin's . She also feels down and discouraged about her back pain. She has started seeing a new marketing finance specialist at . Past Medical History: PAST MEDICAL HISTORY Diagnosis Date ADHD (attention deficit hyperactivity disorder) Ovarian cyst PAF (paroxysmal atrial fibrillation) ([facility]) 07/2022 follows with cardiology Scoliosis SVT, lower extremity ([facility]) 2019 ASA only no anticoagulants Past Surgical History: PAST SURGICAL HISTORY Procedure Laterality Date OTHER SURGICAL HISTORY (PLEASE SPECIFY) HX 2005,2006 back surgery x2 for scoliosis with marilu placement Family History: FAMILY HISTORY Problem Relation Age of Onset other (osteoarthritis [Other]) Mother Scoliosis Father Scoliosis Paternal Aunt Social History: Social History Tobacco Use Smoking status: Never Smokeless tobacco: Never Tobacco comments: vapes Substance Use Topics Alcohol use: No Drug use: No Current Medications: ADDERALL XR 30 mg biphasic capsule, Take 1 capsule by mouth once daily for 30 days., Disp: 30 capsule, Rfl: 0 dextroamphetamine-amphetamine (ADDERALL) 10 mg tablet, Take 10 mg by mouth every afternoon., Disp: , Rfl: pregabalin (LYRICA) 50 mg capsule, Take 1 capsule by mouth three times daily for 30 days., Disp: , Rfl: gabapentin (NEURONTIN) 600 mg tablet, Take 2 tablets by mouth three times daily for 30 days., Disp:, Rfl: cyanocobalamin 1,000 mcg/mL, Inject 1,000 mcg intramuscularly once every month., Disp: , Rfl: metoprolol tartrate, short acting, (LOPRESSOR) 25 mg tablet, Take 1 tablet by mouth twice daily., Disp: 60 tablet, Rfl: 0 ergocalciferol 50,000 unit capsule (VITAMIN D2, DRISDOL), Take 1 capsule by mouth one time a week.,Disp: 4 capsule, Rfl: 7 buPROPion XL (WELLBUTRIN XL) 150 mg 24 hr tablet, Take 1 tablet by mouth once daily., Disp: 30 tablet, Rfl: 2 escitalopram oxalate (LEXAPRO) 10 mg tablet, Take 1 tablet by mouth once daily., Disp: 90 tablet, Rfl: 1 [DISCONTINUED] escitalopram oxalate (LEXAPRO) 10 mg tablet, 0.5 tab daily for 1 week then 1 tab daily, Disp: 30 tablet, Rfl: 1 perflutren lipid microspheres 1.3 mL in NaCl (PF) 0.9% 10 mL injection (DEFINITY), , INTRAVENOUS, DIRECTED PRN, Jessee Hamilton MD sodium chloride 0.9 % (flush) 10 mL (BD POSIFLUSH), 10 mL, INTRAVENOUS, DIRECTED PRN, Jessee Hamilton MD Allergies: ALLERGIES No Known Allergies Vitals: BP 110/79 Pulse 90 Ht 5' 7 (1.70m) Wt 124 lb (56.2kg) SpO2 98% LMP 01/12/2023 BMI 19.42 kg/(m^2). Review of Systems see HPI. ROS otherwise negative. Objective BP 110/79 Pulse 90 Ht 170.2 cm (5' 7 ) Wt 56.2 kg (124 lb) LMP 01/12/2023 SpO2 98% BMI 19.42 kg/m Physical Exam Vitals reviewed. Constitutional: General: She is not in acute distress. Appearance: Normal appearance. She is normal weight. She is not ill-appearing, toxic-appearing or diaphoretic. Cardiovascular: Rate and Rhythm: Normal rate and regular rhythm. Pulmonary: Effort: Pulmonary effort is normal. No respiratory distress. Breath sounds: Normal breath sounds. No stridor. No wheezing, rhonchi or rales. Chest: Chest wall: No tenderness. Neurological: Mental Status: She is alert. Psychiatric: Mood and Affect: Mood normal. Behavior: Behavior normal. Assessment and Plan ASSESSMENT/PLAN: 1. Mild episode of recurrent major depressive disorder (HCC) - ICD9: 296.31, ICD10: F33.0 (primary diagnosis) Discussed treatment options and suggested adding wellbutrin to Lexapro. She will start with 150mg and f/u in 4-6 weeks with an update on her symptoms. 2. Attention deficit hyperactivity disorder (ADHD), unspecified ADHD type - ICD9: 314.01, ICD10: F90.9 No refills needed at this time. I will be taking over the prescribing of her Adderall Rx's from nowon as she is no longer seeing her previous PCP in [place]. 3. Vitamin D deficiency - ICD9: 268.9, ICD10: E55.9 Start high dose vitamin D once weekly. Rx sent in. Ashwini Matute PA-C documented in this encounterC[facility]06-15-2023 Miscellaneous Notes* Telephone Encounter - Ashwini Matute PA-C - 02/17/2023 9:20 AM EDT The following approved medication requests have been transmitted electronically. Requested Prescriptions Pending Prescriptions Disp Refills ADDERALL XR 30 mg biphasic capsule 30 capsule 0 Sig: Take 1 capsule by mouth once daily for 30 days. Ashwini Matute PA-C PDMP website checked and validated. All prescriptions have been APPROPRIATELY filled. No suspiciousactivity was identified. 02/17/2023 by Ashwini Matute PA-C Please let her know that her XR dose was sent in. I see she filled the regular release on 02/12 so it is too soon for a refill on that. * Telephone Encounter - Marnie Larsen - 02/16/2023 2:29 PM EDT Patient is calling back in to see if this is possible to get. Let her know wither way through My chart. She is leaving out of town tomorrow. * Telephone Encounter - Pebbles Macdonald - 02/15/2023 4:21 PM EDT Patient has ended her membership with her provider in [place]. Patient thought Jenny was going totake over these meds. She no longer sees anyone else for these meds. Can they please be ordered jm. She is all out of them as of today. She will only see Jenny from now on. * Telephone Encounter - Ashwini Matute PA-C - 02/10/2023 4:26 PM EDT I see another provider has been prescribing this for her. She needs to just stick with the same provider for these controlled meds. * Telephone Encounter - Teagan Green MA - 02/10/2023 4:19 PM EDT Last OV: 02/08/23 ([facility]) 01/11/23 ([place]) Next OV: 02/22/23 Patient's request for medication is as follows: Requested Prescriptions Pending Prescriptions Disp Refills dextroamphetamine-amphetamine (ADDERALL) 10 mg tablet Sig: Take 1 tablet by mouth every afternoon. ADDERALL XR 30 mg 24 hr capsule Sig: Take 1 capsule by mouth once daily. Please approve the above prescription(s) to electronically send to pharmacy. Teagan Green MA documented in this encounterC[facility]06-06-2023 NoteHNO ID: [id number] Author: RT Vinny(R) Service: ? Author Type: Technologist Type: Progress Notes Filed: 02/08/2023 4:08 PM Note Text: Radiology Service Progress Note PATIENT NAME: Hue Titus DATE OF SERVICE: February 08, 2023 TIME: 4:08 PM PATIENT IDENTITY VERIFICATION COMPLETED USING TWO (2) IDENTIFIERS: Name and Date of confirmed by patient verbally. FALL SCREENING: Has the patient had 2 falls in the last year or 1 fall with injury or currently using an Ambulatory Assistive Device (Walker, Cane, Wheelchair, Crutches, etc.)? No PATIENT GENDER DATA: Female. status: : No status: NO. PATIENT RELEVANT IMPLANT DATA REVIEWED: Not Applicable RADIOLOGY DEPARTMENT: General X-ray: Exam(s) Completed: Spine X-Ray(s): Thoracic Upper Extremity X-Ray(s): Scapula, right PERIPHERAL IV DATA: Not applicable SIGNED BY: RT Vinny(R) February 08, 2023 4:08 [facility]06-06-2023 NoteHNO ID: [id number] Author: Chitra Burnett PA-C Service: ? Author Type: Physician Finishing Operator Type: Progress Notes Filed: 02/08/2023 4:12 PM Note Text: Subjective HPI Patient here for an urgent appointment. She's accompanied by her boyfriend who is contributing to history. She reports on Tuesday02/05/2023 she developed R sided upper back pain near the inferior aspect of her scapula. Yesterday - pain was 10/10, slightly better today. Pain is worse with deep breaths and moving her R arm particularly if elevating it. No known trauma or overuse. She has maintained her prescribed Gabapentin and Lyrica. She also tried NSAIDs, Baclofen (boyfriend's Rx), topical CBD oil, tylenol and massage. Boyfriend wonders if opioids would be an option for treatment. Boyfriend reports it seems to move a bit with where it causes her pain - he also finds that sometimes the massage will help during it but then after the pain returns. Patient with known hx of scoliosis s/p surgery. Has CT Myelogram of T and L spine ordered - has not yet called [facility] to schedule. She's concerned if something may be wrong with the hardware of her spine. Review of Systems All other systems reviewed and are negative. BP 128/84 Pulse 71 Ht 5' 7 (1.70m) Wt 123 lb (55.8kg) SpO2 98% LMP 01/12/2023 BMI 19.26 kg/(m2). Objective Physical Exam HENT: Head: Normocephalic and atraumatic. Neck: Thyroid: No thyromegaly. Cardiovascular: Rate and Rhythm: Normal rate and regular rhythm. Heart sounds: Normal heart sounds. No murmur heard. Pulmonary: Effort: Pulmonary effort is normal. Breath sounds: Normal breath sounds. Musculoskeletal: General: No tenderness. Arms: Cervical back: Normal range of motion and neck supple. Comments: Pt notes pain in the area marked in red on image. Mild discomfort noted on palpation of this same area. Pain also worsened with deep breaths and ROM of R arm. Skin: General: Skin is warm and dry. Neurological: Mental Status: She is alert. Motor: Motor function is intact. Gait: Gait is intact. Psychiatric: Mood and Affect: Affect normal. ASSESSMENT/PLAN: 1. Upper back pain on right side - ICD9: 724.5, ICD10: M54.9 Upper back pain particularly at lower aspect of R scapula suddenly on 02/05 worse with deep breaths and ROM of R arm. No known trauma - but does have hardware from previous scoliosis surgery. Failed NSAIDs, Baclofen (boyfriend's Rx), topical CBD oil, tylenol and massage. Already on gabapentin and Lyrica. Discussed likely muscular in etiology particularly considering how ROM of R arm (and thus motion of scapula) affects the pain. Pt concerned for possible hardware issue considering her pain level and acute onset - xray ordered to rule out hardware loosening as etiology though not likely based on location of pain. Recommend stretching. Discussed unless acute finding on xray - I cannot justify need for opioid therapy at this time. Continue with specialist for chronic pain management. Continue with plan of scheduling CT T/L spine as ordered by spine. - XR SCAPULA 2V AP/LAT RIGHT - XR THORACIC GENERAL 3V AP/LAT/SWIMMERS [facility]06-06-2023 History of Present illness Narrative* RT Vinny(R) - 02/08/2023 4:08 PM EDT Radiology Service Progress Note PATIENT NAME: Hue Titus DATE OF SERVICE: February 08, 2023 TIME: 4:08 PM PATIENT IDENTITY VERIFICATION COMPLETED USING TWO (2) IDENTIFIERS: Name and Date of confirmedby patient verbally. FALL SCREENING: Has the patient had 2 falls in the last year or 1 fall with injury or currently using an Ambulatory Assistive Device (Walker, Cane, Wheelchair, Crutches, etc.)? No PATIENT GENDER DATA: Female. status: : No status: NO. PATIENT RELEVANT IMPLANT DATA REVIEWED: Not Applicable RADIOLOGY DEPARTMENT: General X-ray: Exam(s) Completed: Spine X-Ray(s): Thoracic Upper Extremity X-Ray(s): Scapula, right PERIPHERAL IV DATA: Not applicable SIGNED BY: RT Vinny(R) February 08, 2023 4:08 PM documented in this encounterC[facility]06-06-2023 History of Present illness Narrative* Chitra Burnett PA-C - 02/08/2023 4:05 PM EDT Images from the original note were not included. Subjective HPI Patient here for an urgent appointment. She's accompanied by her boyfriend who is contributing to history. She reports on Tuesday02/05/2023 she developed R sided upper back pain near the inferior aspect of her scapula. Yesterday - pain was 10/10, slightly better today. Pain is worse with deep breaths and moving her R arm particularly if elevating it. No known trauma or overuse. She has maintained her prescribed Gabapentin and Lyrica. She also tried NSAIDs, Baclofen (boyfriend's Rx), topical CBD oil, tylenol and massage. Boyfriend wonders if opioids would be an option for treatment. Boyfriend reportsit seems to move a bit with where it causes her pain - he also finds that sometimes the massage will help during it but then after the pain returns. Patient with known hx of scoliosis s/p surgery. Has CT Myelogram of T and L spine ordered - has not yet called [facility] to schedule. She's concerned if something may be wrong with the hardware of her spine. Review of Systems All other systems reviewed and are negative. BP 128/84 Pulse 71 Ht 5' 7 (1.70m) Wt 123 lb (55.8kg) SpO2 98% LMP 01/12/2023 BMI 19.26 kg/(m^2). Objective Physical Exam HENT: Head: Normocephalic and atraumatic. Neck: Thyroid: No thyromegaly. Cardiovascular: Rate and Rhythm: Normal rate and regular rhythm. Heart sounds: Normal heart sounds. No murmur heard. Pulmonary: Effort: Pulmonary effort is normal. Breath sounds: Normal breath sounds. Musculoskeletal: General: No tenderness. Arms: Cervical back: Normal range of motion and neck supple. Comments: Pt notes pain in the area marked in red on image. Mild discomfort noted on palpation of this same area. Pain also worsened with deep breaths and ROM of R arm. Skin: General: Skin is warm and dry. Neurological: Mental Status: She is alert. Motor: Motor function is intact. Gait: Gait is intact. Psychiatric: Mood and Affect: Affect normal. ASSESSMENT/PLAN: 1. Upper back pain on right side - ICD9: 724.5, ICD10: M54.9 Upper back pain particularly at lower aspect of R scapula suddenly on 02/05 worse with deep breaths and ROM of R arm. No known trauma - but does have hardware from previous scoliosis surgery. Failed NSAIDs, Baclofen (boyfriend's Rx), topical CBD oil, tylenol and massage. Already on gabapentin and Lyrica. Discussed likely muscular in etiology particularly considering how ROM of R arm (and thus motion of scapula) affects the pain. Pt concerned for possible hardware issue considering her pain level and acute onset - xray ordered to rule out hardware loosening as etiology though not likely based onlocation of pain. Recommend stretching. Discussed unless acute finding on xray - I cannot justify need for opioid therapy at this time. Continue with specialist for chronic pain management. Continue with plan of scheduling CT T/L spine as ordered by spine. - XR SCAPULA 2V AP/LAT RIGHT - XR THORACIC GENERAL 3V AP/LAT/SWIMMERS Chitra Burnett PA-C documented in this encounterC[facility]06-02-2023 NoteHNO ID: [id number] Author: Chitra Burnett PA-C Service: ? Author Type: Physician Finishing Operator Type: Progress Notes Filed: 02/04/2023 12:34 PM Note Text: Subjective HPI patient here for an urgent appointment. She reports that last night she began to have significant pain and muscle spasms of her right lower leg particularly lateral ankle. Symptoms are starting to improve this morning but still evident. She felt she was unable to work today due to her amount of pain, lack of sleep last night due to the pain, and muscle spasms. She request a letter for missed work today. 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 She's scheduled to work today - and next shift is 02/07/2023. She reports she tried to submit for FMLA last month - but was told she was not eligible at her new job yet. 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 She's currently followed by Dr Dennis for pain management and Spine. She reports Dr Dennis told her there's nothing additional he can do for her so she didn't think she would need to follow up. She had a CT Myelogram ordered by [facility] - but it was scheduled in [place] as a traditional CT so it was cancelled. After the CT Myelogram - she anticipates then seeing neurosurgery for possible SCS (failed SCS with Dr Dennis's team). She's currently on Gabapentin 600mg 2 po TID and Lyrica 50 mg TID. She reports the current Rx filled are from the prescriber who she saw prior to moving here. She admits she didn't think about who would take over the Rx since she now lives in [place] Review of Systems All other systems reviewed and are negative. BP 124/82 Pulse 78 Ht 5' 7 (1.70m) Wt 122 lb (55.3kg) SpO2 99% LMP 01/12/2023 BMI 19.10 kg/(m2). Objective Physical Exam Constitutional: Comments: Appears thin HENT: Head: Normocephalic and atraumatic. Neck: Thyroid: No thyromegaly. Cardiovascular: Rate and Rhythm: Normal rate and regular rhythm. Heart sounds: Normal heart sounds. No murmur heard. Pulmonary: Effort: Pulmonary effort is normal. Breath sounds: Normal breath sounds. Musculoskeletal: General: No tenderness. Cervical back: Normal range of motion and neck supple. Skin: General: Skin is warm and dry. Neurological: Mental Status: She is alert. Motor: Motor function is intact. Gait: Gait is intact. Gait normal. Comments: Occasional sudden R lower extremity jerking motion Psychiatric: Mood and Affect: Mood and affect normal. ASSESSMENT/PLAN: 1. Neuropathy - ICD9: 355.9, ICD10: G62.9 Chart reviewed. Known chronic pain and neuropathy. Currently followed by PCP, Spine and Pain management ([facility]). Compliant with Rx. Worsened symptoms starting last night which also impacted her ability to sleep. Note given for missed work today - pt reports not eligible for FMLA. Advised I will reach out to her PCP as a heads up that it needs to be determined who will take over the Rx of Gabapentin and Lyrica as she will run out of refills from her previous PCP [place] of state. Pt will call [place] [facility] scheduling to set up the CT myelogram appropriately. [facility]06-02-2023 History of Present illness Narrative* Chitra Burnett PA-C - 02/04/2023 12:25 PM EDT Subjective HPI patient here for an urgent appointment. She reports that last night she began to have significant pain and muscle spasms of her right lowerleg particularly lateral ankle. Symptoms are starting to improve this morning but still evident. She felt she was unable to work today due to her amount of pain, lack of sleep last night due to the pain, and muscle spasms. She request a letter for missed work today. 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 She's scheduled to work today - and next shift is 02/07/2023. She reports she tried to submit for FMLA last month - but was told she was not eligible at her new job yet. 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 She's currently followed by Dr Dennis for pain management and Spine. She reports Dr Dennis told her there's nothing additional he can do for her so she didn't think she would need to follow up. She hada CT Myelogram ordered by [facility] - but it was scheduled in [place] as a traditional CT so it was cancelled. After the CT Myelogram - she anticipates then seeing neurosurgery for possible SCS (failed SCS with Dr Dennis's team). She's currently on Gabapentin 600mg 2 po TID and Lyrica 50 mg TID. She reports the current Rx filled are from the prescriber who she saw prior to moving here. She admits shedidn't think about who would take over the Rx since she now lives in [place] Review of Systems All other systems reviewed and are negative. BP 124/82 Pulse 78 Ht 5' 7 (1.70m) Wt 122 lb (55.3kg) SpO2 99% LMP 01/12/2023 BMI 19.10 kg/(m^2). Objective Physical Exam Constitutional: Comments: Appears thin HENT: Head: Normocephalic and atraumatic. Neck: Thyroid: No thyromegaly. Cardiovascular: Rate and Rhythm: Normal rate and regular rhythm. Heart sounds: Normal heart sounds. No murmur heard. Pulmonary: Effort: Pulmonary effort is normal. Breath sounds: Normal breath sounds. Musculoskeletal: General: No tenderness. Cervical back: Normal range of motion and neck supple. Skin: General: Skin is warm and dry. Neurological: Mental Status: She is alert. Motor: Motor function is intact. Gait: Gait is intact. Gait normal. Comments: Occasional sudden R lower extremity jerking motion Psychiatric: Mood and Affect: Mood and affect normal. ASSESSMENT/PLAN: 1. Neuropathy - ICD9: 355.9, ICD10: G62.9 Chart reviewed. Known chronic pain and neuropathy. Currently followed by PCP, Spine and Pain management ([facility]). Compliant with Rx. Worsened symptoms starting last night which also impacted her abilityto sleep. Note given for missed work today - pt reports not eligible for FMLA. Advised I will reachout to her PCP as a heads up that it needs to be determined who will take over the Rx of Gabapentin and Lyrica as she will run out of refills from her previous PCP out of state. Pt will call [place] [facility] scheduling to set up the CT myelogram appropriately. Chitra Burnett PA-C documented in this encounterC[facility] NoteHNO ID: [id number] Author: Aria Izquierdo PA-C Service: ? Author Type: Physician Finishing Operator Type: Progress Notes Filed: 02/03/2023 4:11 PM Note Text: Hue Titus is a 32 year old year old female. Patient presents with boyfriend for control consult. Interested in IUD. Cycles heavy and crampy at beginning, regular. Gained weight on DMPA. Patient's last menstrual period was 01/12/2023. FAMILY HISTORY Problem Relation Age of Onset other (osteoarthritis [Other]) Mother Scoliosis Father Scoliosis Paternal Aunt OB History No obstetric history on file. PAST MEDICAL HISTORY Diagnosis Date ADHD (attention deficit hyperactivity disorder) Ovarian cyst PAF (paroxysmal atrial fibrillation) ([facility]) 07/2022 follows with cardiology Scoliosis SVT, lower extremity ([facility]) 2019 ASA only no anticoagulants PAST SURGICAL HISTORY Procedure Laterality Date OTHER SURGICAL HISTORY (PLEASE SPECIFY) HX 2005,2006 back surgery x2 for scoliosis with marilu placement Current Outpatient Medications Medication Sig dextroamphetamine-amphetamine (ADDERALL) 10 mg tablet Take 10 mg by mouth every afternoon. pregabalin (LYRICA) 50 mg capsule Take 1 capsule by mouth three times daily for 30 days. gabapentin (NEURONTIN) 600 mg tablet Take 2 tablets by mouth three times daily for 30 days. escitalopram oxalate (LEXAPRO) 10 mg tablet 0.5 tab daily for 1 week then 1 tab daily cyanocobalamin 1,000 mcg/mL Inject 1,000 mcg intramuscularly once every month. ADDERALL XR 30 mg 24 hr capsule Take 30 mg by mouth once daily. miSOPROStol (CYTOTEC) 200 mcg tablet 1 tablet as directed. Take by mouth 2 days prior to appt, and the second pill 8-10 hours prior to ASSURANCE OFFICER appt for cervical dilation. metoprolol tartrate, short acting, (LOPRESSOR) 25 mg tablet Take 1 tablet by mouth twice daily. Current Facility-Administered Medications Medication Dose Route Frequency perflutren lipid microspheres 1.3 mL in NaCl (PF) 0.9% 10 mL injection (DEFINITY) INTRAVENOUS DIRECTED PRN sodium chloride 0.9 % (flush) 10 mL (BD POSIFLUSH) 10 mL INTRAVENOUS DIRECTED PRN ALLERGIES No Known Allergies Social History Social History Narrative Merged History Encounter Portions of this record were documented by the Community Theater Actor. I, Aria Izquierdo, have reviewed this information as documented for accuracy and performed all elements of history taking, and edited the record as necessary. ROS: SEE HPI PE: GENERAL: well-appearing, in no acute distress LUNGS: Normal inspiratory effort ASSURANCE OFFICER: deferred NEURO: Awake, alert and oriented A/P: 32 year old y/o F here for BC consult. 1. Counseling for control regarding intrauterine device (IUD) - Reviewed r/b/a IUDs, pt elects Mirena - INSERT INTRAUTERINE DEVICE Rx Cytotec sent F/U 2wks for placement Will perform WWE at IUD check as she is due. Aria Izquierdo PA-C I spent a total of 30 minutes on the date of the service which included [id number] patient care, completing clinical documentation, counseling and educating the patient/family/caregiver, and ordering medications, tests, or procedures.[facility]06[facility] History of Present illness Narrative* Aria Izquierdo PA-C - 02/03/2023 2:48 PM EDT Hue Titus is a 32 year old year old female. Patient presents with boyfriend for control consult. Interested in IUD. Cycles heavy and crampy at beginning, regular. Gained weight on DMPA. Patient's last menstrual period was 01/12/2023. FAMILY HISTORY Problem Relation Age of Onset other (osteoarthritis [Other]) Mother Scoliosis Father Scoliosis Paternal Aunt OB History No obstetric history on file. PAST MEDICAL HISTORY Diagnosis Date ADHD (attention deficit hyperactivity disorder) Ovarian cyst PAF (paroxysmal atrial fibrillation) ([facility]) 07/2022 follows with cardiology Scoliosis SVT, lower extremity ([facility]) 2018 ASA only no anticoagulants PAST SURGICAL HISTORY Procedure Laterality Date OTHER SURGICAL HISTORY (PLEASE SPECIFY) HX 2004,2006 back surgery x2 for scoliosis with marilu placement Current Outpatient Medications Medication Sig dextroamphetamine-amphetamine (ADDERALL) 10 mg tablet Take 10 mg by mouth every afternoon. pregabalin (LYRICA) 50 mg capsule Take 1 capsule by mouth three times daily for 30 days. gabapentin (NEURONTIN) 600 mg tablet Take 2 tablets by mouth three times daily for 30 days. escitalopram oxalate (LEXAPRO) 10 mg tablet 0.5 tab daily for 1 week then 1 tab daily cyanocobalamin 1,000 mcg/mL Inject 1,000 mcg intramuscularly once every month. ADDERALL XR 30 mg 24 hr capsule Take 30 mg by mouth once daily. miSOPROStol (CYTOTEC) 200 mcg tablet 1 tablet as directed. Take by mouth 2 days prior to appt, and the second pill 8-10 hours prior to ASSURANCE OFFICER appt for cervical dilation. metoprolol tartrate, short acting, (LOPRESSOR) 25 mg tablet Take 1 tablet by mouth twice daily. Current Facility-Administered Medications Medication Dose Route Frequency perflutren lipid microspheres 1.3 mL in NaCl (PF) 0.9% 10 mL injection (DEFINITY) INTRAVENOUS DIRECTED PRN sodium chloride 0.9 % (flush) 10 mL (BD POSIFLUSH) 10 mL INTRAVENOUS DIRECTED PRN ALLERGIES No Known Allergies Social History Social History Narrative Merged History Encounter Portions of this record were documented by the Community Theater Actor. I, Aria Izquierdo, have reviewed this information as documented for accuracy and performed all elements of history taking, and editedthe record as necessary. ROS: SEE HPI PE: GENERAL: well-appearing, in no acute distress LUNGS: Normal inspiratory effort ASSURANCE OFFICER: deferred NEURO: Awake, alert and oriented A/P: 32 year old y/o F here for BC consult. 1. Counseling for control regarding intrauterine device (IUD) - Reviewed r/b/a IUDs, pt elects Mirena - INSERT INTRAUTERINE DEVICE Rx Cytotec sent F/U 2wks for placement Will perform WWE at IUD check as she is due. Aria Izquierdo PA-C I spent a total of 30 minutes on the date of the service which included [id number] patient care, completing clinical documentation, counseling and educating the patient/family/caregiver, and ordering medications, tests, or procedures. documented in this encounterC[facility]05-11-2023 NoteHNO ID: [id number] Author: Ashwini Matute PA-C Service: ? Author Type: Physician Finishing Operator Type: Progress Notes Filed: 01/13/2023 2:09 PM Note Text: This note was created using SocialVest. Subjective Hue Titus is a 32 year old female. HPI Hue Titus is a 32 year old female who presents today to establish care as a new patient. She has a history of juvenile scoliosis and is currently being treated by both marketing finance specialist and pain management. She is on both gabapentin and lyrica for her chronic back pain and recently failed an attempted spinal cord stimulator procedure. She is awaiting additional CT imaging to determine next course of treatment. 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 She recently moved back to the area after living in [place] for over 5 yrs. She complains of increased stress and depression over the past year. She lost both a close cousin and grandmother within the year and says this has been very tough on her. She and her boyfriend are living with her mother now. She was on lexapro in the past and says it worked well for her. She is agreeable to going back on an anti-depressant. She is also taking Adderall for ADHD and says she has been doing well on her current dose for a few years. She has some trouble sleeping and often wakes up in the middle of the night. She feels tired all the time. She denies any suicidal thoughts and says she has a good support system. She was also diagnosed with paroxysmal a fib last fall. She has had two known episodes of a fib. She sees cardiology for this. She was prescribed Eliquis initially but was not able to afford it so she was advised to take aspirin but admits to missing doses often. She is overdue for pap/pelvic exams. She is sexually active with her boyfriend and not using any contraception. She does not desire at this time. Past Medical History: PAST MEDICAL HISTORY Diagnosis Date ADHD (attention deficit hyperactivity disorder) DVT, lower extremity ([facility]) 2018 PAF (paroxysmal atrial fibrillation) ([facility]) 07/2022 follows with cardiology Scoliosis Past Surgical History: PAST SURGICAL HISTORY Procedure Laterality Date OTHER SURGICAL HISTORY (PLEASE SPECIFY) HX 2004,2006 back surgery x2 for scoliosis with marilu placement Family History: FAMILY HISTORY Problem Relation Age of Onset other (osteoarthritis [Other]) Mother Scoliosis Father Scoliosis Paternal Aunt Social History: Social History Tobacco Use Smoking status: Never Smokeless tobacco: Never Tobacco comments: vapes Substance Use Topics Alcohol use: No Drug use: No Current Medications: dextroamphetamine-amphetamine (ADDERALL) 10 mg tablet, Take 10 mg by mouth every afternoon., Disp: , Rfl: pregabalin (LYRICA) 50 mg capsule, Take 1 capsule by mouth three times daily for 30 days., Disp: , Rfl: cyanocobalamin 1,000 mcg/mL, Inject 1,000 mcg intramuscularly once every month., Disp: , Rfl: ADDERALL XR 30 mg 24 hr capsule, Take 30 mg by mouth once daily., Disp: , Rfl: metoprolol tartrate, short acting, (LOPRESSOR) 25 mg tablet, Take 1 tablet by mouth twice daily., Disp: 60 tablet, Rfl: 0 gabapentin (NEURONTIN) 600 mg tablet, Take 2 tablets by mouth three times daily for 30 days., Disp: , Rfl: escitalopram oxalate (LEXAPRO) 10 mg tablet, 0.5 tab daily for 1 week then 1 tab daily, Disp: 30 tablet, Rfl: 1 [DISCONTINUED] pregabalin (LYRICA) 50 mg capsule, Take 1 capsule by mouth once daily., Disp: , Rfl: [DISCONTINUED] apixaban (ELIQUIS DVT-PE TREAT 30D START) 5 mg (74 tabs), Take 2 tablets (10 mg) by mouth twice daily for 7 days. Then take 1 tablet (5 mg) by mouth twice daily for 23 days (Patient not taking: Reported on 12/22/2022), Disp: 74 tablet, Rfl: 0 [DISCONTINUED] escitalopram oxalate (LEXAPRO) 10 mg tablet, TAKE 1 TABLET DAILY (Patient not taking: No sig reported), Disp: 90 tablet, Rfl: 2 [DISCONTINUED] gabapentin (NEURONTIN) 800 mg tablet, TAKE 1 TABLET THREE TIMES A DAY (Patient taking differently: 600 mg three times daily.), Disp: 270 tablet, Rfl: 2 perflutren lipid microspheres 1.3 mL in NaCl (PF) 0.9% 10 mL injection (DEFINITY), , INTRAVENOUS, DIRECTED PRN, Jessee Hamilton MD sodium chloride 0.9 % (flush) 10 mL (BD POSIFLUSH), 10 mL, INTRAVENOUS, DIRECTED PRN, Jessee Hamilton MD Allergies: ALLERGIES No Known Allergies Vitals: BP 124/80 Pulse 63 Ht 5' 7 (1.70m) Wt 119 lb (54.0kg) SpO2 98% LMP 12/12/2022 BMI 18.63 kg/(m2). Review of Systems Constitutional: Positive for fatigue. Respiratory: Negative. Cardiovascular: Negative. Gastrointestinal: Negative. Genitourinary: Negative. Musculoskeletal: Positive for back pain. Chronic back pain related to scoliosis Neurological: Negative. Psychiatric/Behavioral: Increased depression- see HPI Objective BP 124/80 Pulse 63 Ht 170.2 cm (5' 7 ) Wt 54 kg (119 lb) LMP (more content not included)...[facility]05-09-[facility] Miscellaneous Notes * Telephone Encounter - SALUD Reeves - 01/11/2023 3:22 PM EDT Behavioral Health Social Work Progress Note Patient identified for [facility] from: PCP Reason for referral: Resources Behavioral Health Resources: Psychology - talk therapy [facility] encounter type: Telephone Encounter, [employer] [place] [employer] Message Attempts to Outreach: 1 attempt Referral made: Psychology - External Psychology-External referral type: Therapy Reason for external referral: Patient seeking special technical operations officer support Final Disposition: Resources given Patient Discharged?: Yes Patient reported that caregiver was able to meet their needs today?: Yes [facility] consult received for anxiety and depression. [facility] placed telephone call at the request of the PCP to discuss behavioral health needs and provide referrals for outpatient support. Patient states she is looking to establish with a therapy provider. Would like telephone number to schedule [facility] and externally. Will send the following: [facility] Psych[facility]ry and Counseling Central Scheduling Call Center [phone] [facility] ([place]) [phone] [facility] ([place]) Counseling only [phone] [facility] ([place]) Counseling only [phone] [facility] ([place]) Counseling only [phone] [facility] ([place]) [phone] Extension: [phone] [employer] [facility] ([place]) Counseling only [phone] [facility] [place] ([place]) Counseling only [phone] [facility] [place] ([place]) Counseling only [phone] [facility] ([place]) [phone] [facility] ([place]) [phone] [facility] ([place]) Counseling only [phone] [facility] [place] ([place]) Counseling only [phone] [facility] ([place]) Counseling only [phone] [facility] ([place]) [phone] [facility] ([place]) Counseling only [phone] [facility] [place] ([place]) Counseling only [phone] [employer] ([place]) Counseling only [facility] [phone] [facility] ([place]) Counseling only [phone] [facility] ([place]) Counseling only [phone] [facility] ([place]) Counseling only [phone] [facility] ([place]) Counseling only [phone] SALUD Reeves, ACM-SW January 11, 2023 documented in this encounterC[facility]04-28-2023 Miscellaneous Notes* Telephone Encounter - Ivanna Jj RN - 12/31/2022 3:56 PM EDT I spoke to CT regarding the orders it appears in place. Should be able to schedule. Would try to schedule again. If there is a problem to write down what the issue is. Spoke to patient gave information and she verbalized understanding. * Telephone Encounter - Yue Kirby - 12/31/2022 3:34 PM EDT Pt calling to schedule her CT scan, however, the scan is not currently listed under active orders on the appointment desk. Please advise if the order needs to be released or re-entered so that patient may be scheduled. Yue Kirby December 31, 2022 3:35 PM documented in this encounterC[facility]04-19-2023 History of Present illness Narrative* Dorota Conn RT(R) - 12/22/2022 1:00 PM EDT Radiology Service Progress Note PATIENT NAME: Hue Titus DATE OF SERVICE: December 22, 2022 TIME: 1:26 PM PATIENT IDENTITY VERIFICATION COMPLETED USING TWO (2) IDENTIFIERS: Name and Date of confirmedby patient verbally and Name and Date of confirmed by identification band. FALL SCREENING: Has the patient had 2 falls in the last year or 1 fall with injury or currently using an Ambulatory Assistive Device (Walker, Cane, Wheelchair, Crutches, etc.)? No PATIENT GENDER DATA: Female. status: : No status: NO. PATIENT RELEVANT IMPLANT DATA REVIEWED: Not Applicable RADIOLOGY DEPARTMENT: General X-ray: Exam(s) Completed: Spine X-Ray(s): Scoliosis Series PERIPHERAL IV DATA: Not applicable SIGNED BY: RT Stormy(R) December 22, 2022 1:26 PM documented in this encounterCleveland Clinic Luther[facility] Hospital04-19-2023 NoteHNO ID: [id number] Author: Marco Slade, DO Service: ? Author Type: Physician Type: Progress Notes Filed: 12/26/2022 9:50 PM Note Text: [facility] Neurological [place] [facility] Initial Exam SUBJECTIVE HISTORY OF PRESENT ILLNESS: Hue Titus (last name was listed as Jeff upon start of visit) is a 32 year old female who presents with a chief complaint of diffuse back pain. Patient has a long h/o low back pain. She had corrective surgery for scoliosis in 2004 and 2005. Charts show lumbar radicular pain beginning 2017, which she now reports as paresthesias and pain in her right foot diffusely that has been chronic since onset. States she has chronic weakness in right ankle. She states she started having worsening low back pain about 3-4 weeks ago. Patient reports she went to her pain management doctor last week to have a spinal cord stimulator trial, but states the placement was unsuccessful due to scar tissue. She is now seeking neurosurgical evaluation for SCS at [facility]. Denies bowel/bladder incontinence or saddle anesthesia. The pain is currently 5/10. The pain can get to 10/10 at the highest and 0/10 at the lowest. Pain Radiation: As above Aggravating Factors: standing or bending down to do something causes her worsening back pain. If she is seated for too long or standing for too long this increases the burning pain in her right foot. Alleviating Factors: Walking helps with her right foot pain sometimes. Nothing really makes her back pain better she says Pain Ratio: Pain in the back is greater than in the foot Current Treatment: Medications -Gabapentin 600 mg (takes 1200mg TID) - some help -Lyrica 50 mg every day - recently increased to BID but she hasn't increased it yet - some help -Percocet 5-325 mg (14 tablets Rx on 12/15/[address] Dennis) Therapies No recent PT Prior Treatment: Medications Ibuprofen Tylenol Oral steroids Cymbalta 30-60 mg daily Baclofen 20 mg TID CBD ointments Therapies N/A Prior spine interventions: -09/15/21 Dr. Miguel Angel Pinedo: Caudal JEFFERY with catheter to L5 - not much relief -states she had steroid shots in her back years ago with Dr. Dennis Prior spine surgery: -05/16/06 Dr. 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 Manan Garcia at [facility]: T2 to L2 PSF for scoliosis Previously treated by: -Pain Management Dr. Jolly Dennis. -Pain Management Dr. Miguel Angel Pinedo, [facility] in [place] -NSGY Dr. Raymond Sheikh, Neurological Services [facility] in [place] - Rx PT on 02/2022 -Ortho Spine Surgery Dr. Rico Mustafa, [facility] in [place] -NSGY Dr. Shawn Hardin 07/24/21 - no signs of radiculopathy on imaging/EMG, did not recommend surgery; rec SNRB vs SCS. -NSGY Dr. Miguel Angel Allison at [facility] 2005. -NSGY Dr. Manan Garcia at [facility] 2004 PMH: PAF - previously on Eliquis but couldn't afford, then took ASA, now just on Metoprolol, following with [facility] Dr. Hamilton, had 30 day monitor completed showing only sinus arrhythmia. ADHD Anxiety, Depression Migraine B12 and Vitamin D deficiency h/o cancer: no personal history of cancer PSH: See below Social Alcohol: 1-2 cups of whiskey at night Tobacco: states she just stopped vaping Illicit drugs: no Personal life: Moved to [place] in 2014 then back to [place] from [place] in 2021. 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 Higher percentile rankings indicate better function/quality of life. 50th percentile is the average of the general population and indicates half of respondents had a worse score. Depression Screening: PHQ-9 Self-Harm (Item 9) response options: 0 Not at all 1 Several days 2 More than half the days 3 Nearly every day PHQ-9 Levels: 0-4 No - mild depression 5-9 Mild depression 10-14 Moderate depression 15-19 Moderately severe depression 20-27 Severe depression ACTIVE PROBLEM LIST Paroxysmal Atrial Fibrillation (Hcc) PAST MEDICAL HISTORY Diagnosis Date ADHD (attention deficit hyperactivity disorder) Scoliosis Unspecified essential hypertension PAST SURGICAL HISTORY Procedure Laterality Date OTHER SURGICAL HISTORY (PLEASE SPECIFY) HX 2004,2006 back surgery x2 for sco (more content not included)...[facility] 12-22-2022 History of Present illness Narrative* Marco Slade, DO - 12/22/2022 8:17 AM EDT Images from the original note were not included. [facility] [place] [facility] [place] [facility] - Medical Spine Initial Exam SUBJECTIVE HISTORY OF PRESENT ILLNESS: Hue Titus (last name was listed as Jeff upon start of visit) is a 32 year old female who presents with a chief complaint of diffuse back pain. Patient has a long h/o low back pain. She had corrective surgery for scoliosis in 2004 and 2005. Charts show lumbar radicular pain beginning 2017, which she now reports as paresthesias and pain in her right foot diffusely that has been chronic since onset. States she has chronic weakness in right ankle. She states she started having worsening low back pain about 3-4 weeks ago. Patient reports she went to her pain management doctor last week to have a spinal cord stimulator trial, but states the placement was unsuccessful due to scar tissue. She is now seeking neurosurgicalevaluation for SCS at [facility]. Denies bowel/bladder incontinence or saddle anesthesia. The pain is currently 5/10. The pain can get to 10/10 at the highest and 0/10 at the lowest. Pain Radiation: As above Aggravating Factors: standing or bending down to do something causes her worsening back pain. If she is seated for too long or standing for too long this increases the burning pain in her rightfoot. Alleviating Factors: Walking helps with her right foot pain sometimes. Nothing really makes her back pain better she says Pain Ratio: Pain in the back is greater than in the foot Current Treatment: Medications -Gabapentin 600 mg (takes 1200mg TID) - some help -Lyrica 50 mg every day - recently increased to BID but she hasn't increased it yet - some help -Percocet 5-325 mg (14 tablets Rx on 12/15/[address] Dennis) Therapies No recent PT Prior Treatment: Medications Ibuprofen Tylenol Oral steroids Cymbalta 30-60 mg daily Baclofen 20 mg TID CBD ointments Therapies N/A Prior spine interventions: -09/15/21 Dr. Miguel Angel Pinedo: Caudal JEFFERY with catheter to L5 - not much relief -states she had steroid shots in her back years ago with Dr. Dennis Prior spine surgery: -05/16/06 Dr. 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 Manan Garcia at [facility]: T2 to L2 PSF for scoliosis Previously treated by: -Pain Management Dr. Jolly Dennis. -Pain Management Dr. Miguel Angel Pinedo, [facility] in [place] -NSGY Dr. Raymond Sheikh, [facility] in [place] - Rx PT on 02/2022 -Ortho Spine Surgery Dr. Rico Mustafa, [facility] in [place] -NSGY Dr. Shawn Hardin 07/24/21 - no signs of radiculopathy on imaging/EMG, did not recommend surgery; rec SNRB vs SCS. -NSGY Dr. Miguel Angel Allison at [facility] 2005. -NSGY Dr. Manan Garcia at [facility] 2004 PMH: PAF - previously on Eliquis but couldn't afford, then took ASA, now just on Metoprolol, following with [facility] Dr. Hamilton, had 30 day monitor completed showing only sinus arrhythmia. ADHD Anxiety, Depression Migraine B12 and Vitamin D deficiency h/o cancer: no personal history of cancer PSH: See below Social Alcohol: 1-2 cups of whiskey at night Tobacco: states she just stopped vaping Illicit drugs: no Personal life: Moved to [place] in 2014 then back to [place] from [place] in 2021. 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 Higher percentile rankings indicate better function/quality of life. 50th percentile is the average of the general population and indicates half of respondents had a worse score. Depression Screening: PHQ-9 Self-Harm (Item 9) response options: 0 Not at all 1 Several days 2 More than half the days 3 Nearly every day PHQ-9 Levels: 0-4 No - mild depression 5-9 Mild depression 10-14 Moderate depression 15-19 Moderately severe depression 20-27 Severe depression ACTIVE PROBLEM LIST Paroxysmal Atrial Fibrillation (Hcc) PAST MEDICAL HISTORY Diagnosis Date ADHD (attention deficit hyperactivity disorder) Scoliosis Unspecified essential hypertension PAST SURGICAL HISTORY Procedure Laterality Date OTHER SURGICAL HISTORY (PLEASE SPECIFY) HX 2004,2005 back surgery x2 for scoliosis with marilu placement Social History Tobacco Use Smoking status: Never Smokeless tobacco: Never Tobacco comments: vapes Substance Use Topics Alcohol use: No Drug use: No FAMILY HISTORY Problem Relation Age of Onset Scoliosis Father other (osteoarthritis [Other]) Mother Scoliosis Paternal Aunt ALLERGIES No Known Allergies CURRENT MEDICATIONS: ADDERALL XR 30 mg 24 hr capsule^Take 30 mg by mouth once daily.^Disp: ^Rfl: apixaban (ELIQUIS DVT-PE TREAT 30D START) 5 mg (74 tabs)^Take 2 tablets (10 mg) by mouth twice daily for 7 days. Then take 1 tablet (5 mg) by mouth twice daily for 23 days^Disp: 74 tablet^Rfl: 0 metoprolol tartrate, short acting, (LOPRESSOR) 25 mg tablet^Take 1 tablet by mouth twice daily.^Disp: 60 tablet^Rfl: 0 escitalopram oxalate (LEXAPRO) 10 mg tablet^TAKE 1 TABLET DAILY^Disp: 90 tablet^Rfl: 2 (Patient nottaking: Reported on 09/27/2022) gabapentin (NEURONTIN) 800 mg tablet^TAKE 1 TABLET THREE TIMES A DAY^Disp: 270 tablet^Rfl: 2 (Patient taking differently: 600 mg three times daily.) REVIEW OF SYSTEMS: 14 systems reviewed and otherwise negative unless mentioned above. OBJECTIVE: PHYSICAL EXAM LMP 09/15/2022 GENERAL APPEARANCE: Well nourished, well developed, and no apparent distress. NEURO PSYCH: Patient oriented to person, place, and time. Mood pleasant. Benign affect. CARDIOVASCULAR: Palpable pulses. No edema noted. RESPIRATORY: non-labored breathing, no grunting/flaring/retractions SKIN: Head, neck, trunk, and extremities dry, intact and without lesions. MUSCULOSKELETAL VISUAL INSPECTION Posture: scoliotic posture PALPATION: tenderness to palpation of paraspinal muscles in the thoracic and lumbar region bilaterally SPINE ROM: LUMBAR ROM: WFL With Pain generally in left more than right low back CERVICAL ROM: Full ROM Without Pain MUSCLE BULK: Normal and symmetrical in the upper & lower extremities. MUSCLE TONE: Normal. MOTOR: 5/5 bilateral LE hip flexion, knee flexion, knee extension, ankle dorsiflexion, plantarflexion, EHL. 5/5 bilateral shoulder abduction, elbow flexion, elbow extension, wrist extension, wrist flexion, digit abduction, wafer substrate tester strength. SENSORY: sensation decreased to light touch right lateral lower leg, patient notes feels sensitive in right posterior lower leg, and normal in medial lower leg. REFLEXES: 2+ bilateral UE; 3+ in bilateral patellar tendons; 1+ left medial hamstring reflex and absent right medial hamstring reflex; 2+ left achilles tendon reflex and trace right achilles tendon reflex LONG TRACT SIGNS: No clonus. No Hoffmans. GAIT: Non-antalgic. Difficulty performing tandem gait STRAIGHT LEG TEST: negative bilateral SI joint: no tenderness to palpation. Negative Asa maneuver bilaterally Data Review: All images/reports listed below were personally reviewed by me unless otherwise indicated. 01/14/2022 MRI lumbar spine without contrast, [place], [place]: Leftward lumbar curvature. No acute marrow signal changes are demonstrated. No suspected acute fracture or subluxation. Examination significantly limited by susceptibility artifact associated with extensive fusion hardware. L5-S1 level with mild left degenerative neuroforaminal narrowing. No significant spinal canal stenosis. No grossly demonstrated spinal canal stenosis L4-5. Evaluation of the lumbar levels otherwise partially nondiagnostic. Impression: Evaluation severely limited by susceptibility artifact associated with fusion hardware. Virtually nondiagnostic MRI evaluation of the levels above L5-S1. 05/06/2021 MRI lumbar spine without contrast, report, [place], [place]: There has been prior posterior spinal fusion at T11-L2. Susceptibility related to the hardware significantly limits evaluation. There is levoscoliotic curvature of the thoracic or lumbar spine. Vertebral artery heights are grossly maintained. No infiltrative marrow signal abnormality within the imaged marrow. Conus medullaris is not well seen. Inferior most disc is designated as L5-S1. T12-L1: No significant disc bulge or spinal canal stenosis. Susceptibility limits evaluation. Foramina are poorly evaluated. L1-2: No significant disc bulge or spinal canal stenosis. Foramina are poorly seen. L2-3 and L3-4: Susceptibility limits evaluation. L4-5: No significant disc bulge. Facet hypertrophic changes are present. There is no spinal canal stenosis. Right foramen is obscured. No significant foraminal stenosis on the axial images. L5-S1: There is mild annular disc bulge. No spinal canal stenosis. There is mild left foraminal stenosis. No significant right foraminal stenosis. Impression: Significantly limited exam secondary to susceptibility from posterior hardware. L2-3 and L3-4 levels are indeterminate. No segment spinal canal stenosis in the remaining imaged lumbar spine. Mild left foraminal stenosis at L5-S1. Given patient's symptoms, a CT myelogram may be of benefit. 03/16/2021 EMG/NCS RLE, [facility] [place], [place], Dr. Don Bailon MD: Mildly abnormal but nondiagnostic study. Absent right peroneal F wave may indicate L5 nerve root abnormality but there is no additional finding to support. Normal motor and sensory responses noted otherwise with normal electromyography of the muscles sampled. (Right tibialis anterior, gastrocnemius medial head, vastus lateralis, vastus medialis, tibialis posterior) (lumbar paraspinals are not reported as tested) 06/16/2020 CT lumbar spine without contrast, [facility], [place]: Thoracolumbar fusion. Bilateral rods and pedicle through the are present from T11-L4 with osseous fusion of the posterior lumbar elements and laminectomy changes at L4-5. Thoracic hardware is not included superior to this level. There is levocurvature of the lumbar spine with apex at the L1 level. Grossly no evidence of hardware fracture. Lumbar spinal canal appears grossly patent through the L3-4 level. Lumbar foramina appear grossly patent to L3-4. At L4-5 there is ligamentum flavum hypertrophic change and mild annular disc bulge which mildly indents thecal sac. Mild to moderate left and mild right foraminal narrowing is present. L5-S1 there is slight annular disc bulge with facet hypertrophic change and left foraminal vertebral osteophyte mildly moderately narrows the left foramen. Right foramen appears grossly patent as that the spinal canal. Vacuum joint phenomenon at the sacroiliac joints. 06/06/2020 XR lumbar AP/Flex/Ext, [facility], [place]: There is partially visualized posterior thoracolumbar fusion hardware which extends to the level ofL5. The hardware is intact and appears normally aligned. There is residual mild thoracolumbar levoscoliosis with apex at L1 and a De La Paz angle of 30 degrees. There is also 4 mm grade 1 retrolisthesis of L5 on S1 with both flexion and extension. Lumbar vertebrae otherwise demonstrate normal AP alignment and stature. Mild spondylosis and mild to moderate multifocal disc space narrowing is present throughout the lumbar spine. Scattered up to moderate facet arthropathy including at L5-S1 and S1-S2. 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 Overlying soft tissues are unremarkable. No acute osseous abnormality. ASSESSMENT/PLAN DIAGNOSIS: Chronic bilateral low back pain with right-sided sciatica (primary encounter diagnosis) Juvenile idiopathic scoliosis of thoracolumbar region Arthrodesis status Paresthesia of right foot ASSESSMENT: Hue Titus is a 32 year old female with PMH of Scoliosis s/p surgery x 2 resulting in T2 to L5 PSF, PAF, ADHD, Anxiety, Depression, Migraine, presenting for worsening of chronic bilateral low back pain. She also has chronic painful paresthesias in right foot since 2017. Of note, patient is here today seeking neurosurgical referral for spinal cord stimulation because she underwent an attempted trial by outside pain management, but placement was unsuccessful. Exam shows 5/5 strength throughout, sensory changes in right L5/S1 distribution, absent right medial hamstring DTR and trace right achilles DTR. Various imaging reports do not agree on numbering of the lumbar vertebrae,but based on surgical reports from her scoliosis surgery describing fusion down to L5 and review ofscoliosis films obtained today, I would describe the fusion as T2 to L5 and the llowest unfused vertebrae as a lumbarized S1. Outside imaging uploaded today. Outside MRI is severely limited by susceptibility artifact from hardware, but there does not appear to be any significant stenosis at L5-S1 or below. CT does not describe any hardware failure. EMG/NCS only described an absent right peroneal F wave. Patient recently underwent a Caudal JEFFERY without any significant relief. Based on her chronicpain and failure to improve with medications and injections, a SCS trial seems reasonable. Patient will need neurosurgery evaluation for SCS, consult placed. Patient was recommended by outside provider to see Dr. Fish. I have also given her the names of Dr. Barry and Dr. Josue to provide more scheduling options if she prefers. To attempt to achieve better imaging of her thoracic/lumbar spine Ihave ordered CT myelogram thoracic/lumbar. XR scoliosis films obtained today. Since patient has nothad any recent physical therapy I also recommend a course of PT at this time. Would recommend referral to the [place] for pain recovery program if she is deemed not a candidate for SCS or continues tohave significant pain despite treatment. PLAN: 1) Imaging/Diagnostic Studies: -XR scoliosis -CT myelogram thoracic and lumbar spine for surgical planning -Renal function panel ordered for CT myelogram -Imaging reviewed as above. 2) Therapy/Rehabilitation: -Script provided for physical therapy for stretching, core strengthening, ROM, modalities as needed, and to teach HEP -Activities and exercise as tolerated. 3) Pharmacological Management: -No changes 4) Spine/MSK Interventions: -none 5) Consultations: -referral to Neurosurgery for SCS evaluation 6) Follow -up: -Patient will follow with Neurosurgery and her outside Pain Management provider. -Patient instructed to call/seek urgent medical care with worsening of symptoms or change of neurological status. 7) Future treatment considerations: -[facility] Kris Rodrigues MD Spine Medicine Fellow, PGY-5 Attending Note: Morales findings confirmed. Patient examined. Discussed with the fellow and the patient. All information in the note above was confirmed by me and edited as necessary for accurate information. Plan as outlined. I spent a total of 65 minutes on the date of the service which included preparing to see the patient, [id number] patient care, completing clinical documentation, obtaining and/or reviewing separately obtained history, performing a medically appropriate examination, counseling and educating the pat ient/family/caregiver, ordering medications, tests, or procedures, independently interpreting results (not separately reported), and communicating results to the patient/family/caregiver. SIGNATURE: Marco Slade DO PATIENT NAME: Hue Aguilar DATE: December 22, 2022 TIME: 8:17 AM documented in this encounterCleveland [facility]03-[facility]-2023 NoteHNO ID: [id number] Author: uHmberto Herndon MD Service: ? Author Type: Physician Type: Procedures Filed: 12/14/2022 1:03 PM Note Text: [facility] [id number] NAME: HUE AGUILAR : 1990 ENROLLMENT: 11/08/2022 - 12/07/2022 Sinus rhythm with intermittent sinus tachycardia. Reviewed, Edited and Signed by Humberto Herndon MD December 14, 2022 1:02 [facility]03-03-2023 Miscellaneous Notes* Telephone Encounter - Yo Adames LPN - 11/05/2022 3:09 PM EST Called patient to inform her that a new order was placed for the 30 day [employer]. Called [employer] rep(Akash Kirby) to help expedite the order. Yo Adames LPN documented in this encounterCleveland Clinic [facility]01-23-2023 NoteHNO ID: [id number] Author: Jessee Hamilton MD Service: ? Author Type: Physician Type: Progress Notes Filed: 09/27/2022 9:41 AM Note Text: PRIMARY CARE PHYSICIAN: To use this Smartlink, specify the provider ID whose address you want to display, e.g., .PROVADDR[1 (where 1 is the provider ID). REFERRING PHYSICIAN: No referring provider defined for this encounter. CHIEF COMPLAINT: New onset atrial fibrillation HISTORY OF PRESENT ILLNESS: Recent ER visit with palpitations: atrial fibrillation with rapid ventricular response. Since then very short lasting of palpitations at rest. No associated symptoms. PAST CARDIAC HISTORY: See above and below. PAST MEDICAL HISTORY Diagnosis Date ADHD (attention deficit hyperactivity disorder) Scoliosis Unspecified essential hypertension PAST SURGICAL HISTORY Procedure Laterality Date OTHER SURGICAL HISTORY (PLEASE SPECIFY) HX 2004,2005 back surgery x2 for scoliosis with marilu placement MEDICATIONS: ADDERALL XR 30 mg 24 hr capsuleTake 30 mg by mouth once daily.Disp: Rfl: apixaban (ELIQUIS DVT-PE TREAT 30D START) 5 mg (74 tabs)Take 2 tablets (10 mg) by mouth twice daily for 7 days. Then take 1 tablet (5 mg) by mouth twice daily for 23 daysDisp: 74 tabletRfl: 0 metoprolol tartrate, short acting, (LOPRESSOR) 25 mg tabletTake 1 tablet by mouth twice daily.Disp: 60 tabletRfl: 0 gabapentin (NEURONTIN) 800 mg tabletTAKE 1 TABLET THREE TIMES A DAYDisp: 270 tabletRfl: 2 (Patient taking differently: 600 mg three times daily.) escitalopram oxalate (LEXAPRO) 10 mg tabletTAKE 1 TABLET DAILYDisp: 90 tabletRfl: 2 (Patient not taking: Reported on 09/27/2022) REVIEW OF SYSTEMS: ROS: As above, remainder of 14 point review of systems elicited and otherwise unremarkable. PHYSICAL EXAMINATION: Blood Pressure 110/78 Pulse 87 Height 170.2 cm (5' 7 ) Weight 50.3 kg (111 lb) Last Menstrual Period 09/15/2022 Oxygen Saturation 99% Body Mass Index 17.39 kg/m? General: Well appearing, in no acute distress. Skin: No clubbing, no cyanosis. Neck: No jugular venous distention, no carotid bruits; carotids have a normal upstroke. Lungs: Clear to auscultation bilaterally, no wheezing or rhonchi. Heart: Regular rhythm, PMI not displaced, no RV heave. Normal S1 and S2. No S3, no S4, murmurs, gallop or rub. Abdomen: Soft, nontender, bowel sounds normal, no bruits. Extremities: No peripheral edema, no clubbing or cyanosis. Normal pulses bilaterally. Neuro: Oriented to person, place and time, alert, cooperative. CARDIOVASCULAR MEDICINE TESTING: WBC (k/uL) Date Value 07/23/2022 7.61 Hemoglobin (g/dL) Date Value 07/23/2022 13.0 Hematocrit (%) Date Value 07/23/2022 38.8 Platelet Count (k/uL) Date Value 07/23/2022 347 Sodium (mmol/L) Date Value 07/23/2022 139 Potassium (mmol/L) Date Value 07/23/2022 3.6 CO2 (mmol/L) Date Value 07/23/2022 29 BUN (mg/dL) Date Value 07/23/2022 13 Creatinine (mg/dL) Date Value 07/23/2022 0.84 Glucose (mg/dL) Date Value 07/23/2022 55 Magnesium (mg/dL) Date Value 07/23/2022 2.1 No results found for: CK, MB, TROPT No results found for: CHOL, HDL, LDL, TG No results found for: HBA1C I have personally reviewed the Electrocardiogram and Laboratory Testing. IMPRESSION/PLAN: Probably paroxysmal atrial fibrillation, with spontaneous conversion into normal sinus rhythm. [id number] based on the information we have so far. Will obtain a 30-day event monitor and obtain an echocardiogram. Slightly low potassium at the time of her symptoms: Patient encouraged to eat food high on potassium. I appreciate the opportunity of partaking in the care of Hue Aguilar and look forward to following her along with you in the future. CONTACT INFORMATION: Jessee Hamilton M.D. Staff Entry Level Account [facility] [place] [address] [facility] [id number] [phone] Memorial Hospital01-23-2023 Nurse Note* Carlyn Weber LPN - 09/27/2022 9:31 AM EST [place] present: For cardiology exam with Dr Corky Weber LPN documented in this encounterCleveland Clinic Luther[facility] Hospital01-23-2023 Instructions* Patient Instructions* Jessee Hamilton MD - 09/27/2022 9:30 AM EST Please, follow up with me after the echocardiogram and event monitor to discuss results. Please, see me as scheduled, or sooner should symptoms appear or worsen. documented in this encounterCleveland Clinic Luther[facility] Hospital01-23-2023 History of Present illness Narrative* Jessee Hamilton MD - 09/27/2022 9:00 AM EST Images from the original note were not included. PRIMARY CARE PHYSICIAN: To use this Smartlink, specify the provider ID whose address you want to display, e.g., .PROVADDR[1(where 1 is the provider ID). REFERRING PHYSICIAN: No referring provider defined for this encounter. CHIEF COMPLAINT: New onset atrial fibrillation HISTORY OF PRESENT ILLNESS: Recent ER visit with palpitations: atrial fibrillation with rapid ventricular response. Since then very short lasting of palpitations at rest. No associated symptoms. PAST CARDIAC HISTORY: See above and below. PAST MEDICAL HISTORY Diagnosis Date ADHD (attention deficit hyperactivity disorder) Scoliosis Unspecified essential hypertension PAST SURGICAL HISTORY Procedure Laterality Date OTHER SURGICAL HISTORY (PLEASE SPECIFY) HX 2004,2006 back surgery x2 for scoliosis with marilu placement MEDICATIONS: ADDERALL XR 30 mg 24 hr capsule^Take 30 mg by mouth once daily.^Disp: ^Rfl: apixaban (ELIQUIS DVT-PE TREAT 30D START) 5 mg (74 tabs)^Take 2 tablets (10 mg) by mouth twice daily for 7 days. Then take 1 tablet (5 mg) by mouth twice daily for 23 days^Disp: 74 tablet^Rfl: 0 metoprolol tartrate, short acting, (LOPRESSOR) 25 mg tablet^Take 1 tablet by mouth twice daily.^Disp: 60 tablet^Rfl: 0 gabapentin (NEURONTIN) 800 mg tablet^TAKE 1 TABLET THREE TIMES A DAY^Disp: 270 tablet^Rfl: 2 (Patient taking differently: 600 mg three times daily.) escitalopram oxalate (LEXAPRO) 10 mg tablet^TAKE 1 TABLET DAILY^Disp: 90 tablet^Rfl: 2 (Patient nottaking: Reported on 09/27/2022) REVIEW OF SYSTEMS: ROS: As above, remainder of 14 point review of systems elicited and otherwise unremarkable. PHYSICAL EXAMINATION: Blood Pressure 110/78 Pulse 87 Height 170.2 cm (5' 7 ) Weight 50.3 kg (111 lb) Last Menstrual Period 09/15/2022 Oxygen Saturation 99% Body Mass Index 17.39 kg/m General: Well appearing, in no acute distress. Skin: No clubbing, no cyanosis. Neck: No jugular venous distention, no carotid bruits; carotids have a normal upstroke. Lungs: Clear to auscultation bilaterally, no wheezing or rhonchi. Heart: Regular rhythm, PMI not displaced, no RV heave. Normal S1 and S2. No S3, no S4, murmurs, gallop or rub. Abdomen: Soft, nontender, bowel sounds normal, no bruits. Extremities: No peripheral edema, no clubbing or cyanosis. Normal pulses bilaterally. Neuro: Oriented to person, place and time, alert, cooperative. CARDIOVASCULAR MEDICINE TESTING: WBC (k/uL) Date Value 07/23/2022 7.61 Hemoglobin (g/dL) Date Value 07/23/2022 13.0 Hematocrit (%) Date Value 07/23/2022 38.8 Platelet Count (k/uL) Date Value 07/23/2022 347 Sodium (mmol/L) Date Value 07/23/2022 139 Potassium (mmol/L) Date Value 07/23/2022 3.6 CO2 (mmol/L) Date Value 07/23/2022 29 BUN (mg/dL) Date Value 07/23/2022 13 Creatinine (mg/dL) Date Value 07/23/2022 0.84 Glucose (mg/dL) Date Value 07/23/2022 55 Magnesium (mg/dL) Date Value 07/23/2022 2.1 No results found for: CK, MB, TROPT No results found for: CHOL, HDL, LDL, TG No results found for: HBA1C I have personally reviewed the Electrocardiogram and Laboratory Testing. IMPRESSION/PLAN: Probably paroxysmal atrial fibrillation, with spontaneous conversion into normal sinus rhythm. [id number] based on the information we have so far. Will obtain a 30-day event monitor and obtain an echocardiogram. Slightly low potassium at the time of her symptoms: Patient encouraged to eat food high on potassium. I appreciate the opportunity of partaking in the care of Hue Aguilar and look forward to following her along with you in the future. CONTACT INFORMATION: Jessee Hamilton M.D. Staff Entry Level Account [facility] [place] [address] [facility] [address] documented [facility] Miscellaneous Notes* Telephone Encounter - Evens Zamora MA - 09/15/2022 1:17 PM EST Received OV notes from [facility], requesting pt be scheduled as soon as possible. Pt already scheduled with Dr. Hamilton 09/27/2022. Sent for scanning. documented in this encounterC[facility]11-19-2022 NoteHNO ID: [id number] Author: Interface Note Service: ? Author Type: ? Type: Progress Notes Filed: 07/24/2022 2:42 AM Note Text: Epic Scheduled Downtime: 07/24/2022 1:00:00 AM to 07/24/2022 2:26:04 [id number] NoteHNO ID: [id number] Author: RT Michelle(Nicole) Service: Radiology Author Type: Seam Closer Type: Progress Notes Filed: 07/23/2022 11:18 PM Note Text: Radiology Service Progress Note PATIENT NAME: Hue Aguilar DATE OF SERVICE: July 23, 2022 TIME: 11:18 PM PATIENT IDENTITY VERIFICATION COMPLETED USING TWO (2) IDENTIFIERS: Name and Date of confirmed by patient verbally and Name and Date of confirmed by identification band. FALL SCREENING: Has the patient had 2 falls in the last year or 1 fall with injury or currently using an Ambulatory Assistive Device (Walker, Cane, Wheelchair, Crutches, etc.)? Emergency Room Patient: Screened in ED PATIENT GENDER DATA: Female. status: : No status: NO. PATIENT RELEVANT IMPLANT DATA REVIEWED: Not Applicable RADIOLOGY DEPARTMENT: General X-ray: Exam(s) Completed: Chest X-Ray PERIPHERAL IV DATA: Not applicable SIGNED BY: RT Michelle(Nicole) July 23, 2022 11:18 [id number] NoteCOVID 19 RESULT: SARS-CoV-2 (Agent of COVID-19) Not Detected by RT-PCR or equivalent method. This test has been authorized by FDA under an Emergency Use Authorization (EUA). INFLUENZA A PCR: Negative for Influenza A by RT-PCR INFLUENZA B PCR: Negative for Influenza B by RT-PCR RSV PCR: Negative for Respiratory Syncytial Virus (RSV) by PCRLa Grange HospitalComment on above:Performed By: #### [id number] ####[facility] LABORATORYCLIA [id number] [facility], [place] [id number] [place] [address] [place] Evaluation note* Diagnosis Palpitations- Primary Paroxysmal atrial fibrillation (HCC) Atrial fibrillation [facility] this encounter [facility]* Diagnosis Palpitations- Primary Paroxysmal atrial fibrillation (HCC) Atrial fibrillation [facility]* Diagnosis Chronic bilateral low back pain with right-sided sciatica- Primary 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), idiopathic Arthrodesis status Paresthesia of right foot Disturbance of skin sensation documented in this encounter [facility]* Diagnosis Counseling for control regarding intrauterine device (IUD) documented in this encounter [facility]* Diagnosis Neuropathy- Primary Mononeuritis of unspecified site documented in this encounter [facility]* Diagnosis Upper back pain on right side- Primary Pain in thoracic spine [facility]* Diagnosis Attention deficit hyperactivity disorder (ADHD), unspecified ADHD type- Primary [facility]* Diagnosis Mild episode of recurrent major depressive disorder (HCC)- Primary Attention deficit hyperactivity disorder (ADHD), unspecified ADHD type Vitamin D deficiency Unspecified vitamin D deficiency documented [facility]* Diagnosis 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), idiopathic Attention deficit hyperactivity disorder (ADHD), unspecified ADHD type Neuropathy Mononeuritis of unspecified site [facility]* Diagnosis Attention deficit hyperactivity disorder (ADHD), unspecified ADHD type documented [facility]* Diagnosis Attention deficit hyperactivity disorder (ADHD), unspecified ADHD type documented [facility]* Diagnosis Attention deficit hyperactivity disorder (ADHD), unspecified ADHD type- Primary [facility]* Diagnosis Attention deficit hyperactivity disorder (ADHD), unspecified ADHD type [facility]* Diagnosis 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), idiopathic Neuropathy Mononeuritis of unspecified site [facility]* Diagnosis 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), idiopathic Neuropathy Mononeuritis of unspecified site [facility]* Diagnosis Attention deficit hyperactivity disorder (ADHD), unspecified ADHD type [facility] this encounter [facility]* Diagnosis Attention deficit hyperactivity disorder (ADHD), unspecified ADHD type documented in this [facility] note* Diagnosis Moderate episode of recurrent major depressive disorder (HCC)- Primary Attention deficit hyperactivity disorder (ADHD), unspecified ADHD type Alcohol abuse Alcohol abuse, unspecified 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), idiopathic Paroxysmal atrial fibrillation (HCC) Atrial fibrillation Neuropathy Mononeuritis of unspecified site Encounter for immunization Need for other specified prophylactic vaccination against single bacterial disease documented in this encounter [facility] note* Diagnosis Paroxysmal atrial fibrillation (HCC)- Primary Atrial fibrillation Palpitations documented in this encounter [facility] note* Diagnosis 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), idiopathic Neuropathy Mononeuritis of unspecified site documented in this encounter [facility] note* Diagnosis 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), idiopathic Neuropathy Mononeuritis of unspecified site documented in this encounter [facility] note* Diagnosis 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), 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 status documented in this encounter [facility] note* Diagnosis Neuropathy- Primary Mononeuritis of unspecified site Lumbar radiculopathy Thoracic or lumbosacral neuritis or radiculitis, unspecified documented in this encounter [facility] Work Phone: Evaluation note* Diagnosis Low back pain, unspecified Radiculopathy, lumbar region Thoracic or lumbosacral neuritis or radiculitis, unspecified Arthrodesis status documented in this encounter [facility] Work Phone: Evaluation noteNo assessment information available [facility] Work Phone: History general Narrative - Reported* Type Description Date Medical History alcoholism Medical History migraine headache Medical History chronic depression Surgical History scoliosis repair Hospitalization History see above Gabstr Other History of Present illness NarrativeTried to call patient to remind her to get labs before her CT myelogram. Called the numbers listed in EMR. The cell phone number listed is the wrong number and the number listed as home did not go through.[facility] Work Phone: Reason for referral (narrative)* Outpatient Procedure (Routine) - Pending Review Specialty Diagnoses / Procedures Referred By Edy t Referred To Contact [facility] Diagnoses Palpitations Procedures ECHO ECHO TTHRC R-T 2D W/WOM-MODE COMPL SPEC&COLR D Jessee Hamilton MD [address] [place] [address] [place] [address] Referral ID Status Reason Start Date Expiration Date Visits Requested Visits Authorized [id number] Pending Review Auto-Generat ed Referral 09/27/2022 09/27/2023 1 1 * Outpatient Procedure (Routine) - Closed Specialty Diagnoses / Procedures [facility] Referred To Contact [facility] Diagnoses Palpitations Procedures ECG COMPLETE ECG ROUTINE ECG W/LEAST 12 LDS W/I&R Jessee Hamilton MD [address] [place] [address] [place] [address] Referral ID Status Reason Start Date Expiration Date V isits Requested Visits Authorized [id number] Closed Auto-Generate d Referral 09/27/2022 09/27/2023 1 1 [facility] for referral (narrative)* Diagnostic Procedure Only (Routine) - Closed Specialty Diagnoses / Procedures [facility] Referred To Contact XR IMAGING Diagnoses 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 Procedures XR SCOLIOSIS PA STAND/LAT 2V RADEX ENTIR THRC LMBR CRV SAC SPI W/SKULL 2/3 Marco Sandoval DO [address] [place] [address] Xr Imaging Referral ID Status Reason Start Date Expiration Date V isits Requested Visits Authorized [id number] Closed Auto-Generate d Referral 12/22/2022 01/21/2024 1 1 * Consult, Test, Treat (Routine) - Pending Review Specialty Diagnoses / Procedures Referred By Edy t Referred To Contact Neurosurgery Diagnoses 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 Procedures CONSULT TO NEUROSURGERY OFFICE/OUTPATIENT NEW HIGH MDM 60-74 MINUTES Marco Slade, DO [address] [place] [address] Referral ID Status Reason Start Date Expiration Date Visits Requested Visits Authorized [id number] Pending Review PCP Requested Referral 12/22/2022 12/22/2023 1 1 * Physical Therapy (Routine) - Pending Review Specialty Diagnoses / Procedures Referred By [place]oy[place] t Referred To Contact [facility] Diagnoses 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 Procedures CONSULT TO PHYSICAL THERAPY PHYSICAL THERAPY EVALUATION HIGH COMPLEX 45 MINS Marco Slade DO [address] [place] [address] [facility] [place] [address] [place] [address] Referral ID Status Reason Start Date Expiration Date Visits Requested Visits Authorized [id number] Pending Review Auto-Generat ed Referral 12/22/2022 12/22/2023 1 1 [facility] for referral (narrative)* Outpatient Procedure (Routine) - Pending Review Specialty Diagnoses / Procedures Referred By Contac t Referred To Contact [facility] Diagnoses Counseling for control regarding intrauterine device (IUD) Procedures INSERT INTRAUTERINE DEVICE LEVONORGESTREL IU 52MG 5 YR INSERT INTRAUTERINE DEVICE Aria Izquierdo PA-C [address] [place] [address] [facility] [address] [place] [address] Referral ID Status Reason Start Date Expiration Date Visits Requested Visits Authorized [id number] Pending Review Auto-Generat ed Referral 02/03/2023 02/03/2024 1 1 [facility] for referral (narrative)* Diagnostic Procedure Only (Urgent) - Closed Specialty Diagnoses / Procedures Referred By Contac t Referred To Contact XR IMAGING Diagnoses Upper back pain on right side Procedures XR THORACIC GENERAL 3V AP/LAT/SWIMMERS RADEX SPINE THORACIC 3 VIEWS Chitra Burnett PA-C [address] [place] [address] Xr Imaging Referral ID Status Reason Start Date Expiration Date V isits Requested Visits Authorized [id number] Closed Auto-Generate d Referral 02/08/2023 03/09/2024 1 1 * Diagnostic Procedure Only (Urgent) - Closed Specialty Diagnoses / Procedures Referred By Contac t Referred To Contact XR IMAGING Diagnoses Upper back pain on right side Procedures XR SCAPULA 2V AP/LAT RIGHT RADEX SCAPULA COMPLETE Chitra Burnett PA-C [address] [place] [address] Xr Imaging Referral ID Status Reason Start Date Expiration Date V isits Requested Visits Authorized [id number] Closed Auto-Generate d Referral 02/08/2023 03/09/2024 1 1 [facility] for referral (narrative)* Diagnostic Procedure Only (Routine) - Closed Specialty Diagnoses / Procedures Referred By Contac t Referred To Contact XR IMAGING Diagnoses 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 Procedures XR SCOLIOSIS PA STAND/LAT 2V RADEX ENTIR THRC LMBR CRV SAC SPI W/SKULL 2/3 Marco Sandoval DO [address] [place] [address] Xr Imaging [place] [address] Referral ID Status Reason Start Date Expiration Date V isits Requested Visits Authorized [id number] Closed Auto-Generate d Referral 12/22/2022 01/21/2024 1 1 [facility] for referral (narrative)* Consultation (Routine) - Authorized Specialty Diagnoses / Procedures Referred By Contac t Referred To Contact Pain Medicine Diagnoses Lumbar radicul[place] [id number] [place] [address] [place] [address] [place] PhD [address] [place] [address] Referral ID Status Reason Start Date Expiration Date Visits Requested Visits Authorized [id number] Authorized Specialty Services Required 07/14/2023 07/13/2024 1 1 * Consultation (Routine) - Authorized Specialty Diagnoses / Procedures Referred By Contac t Referred To Contact Neurology [place] [address] [facility] [place] [address] Referral ID Status Reason Start Date Expiration Date Visits Requested Visits Authorized [id number] Authorized Specialty Services Required 07/14/2023 07/13/2024 1 1 [facility] Work Phone: [facility] Narrative* Diagnostic Procedure Only (Routine) - Closed Specialty Diagnoses / Procedures Referred By Contac t Referred To Contact XR IMAGING Diagnoses 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 Procedures XR SCOLIOSIS PA STAND/LAT 2V RADEX ENTIR THRC LMBR CRV SAC SPI W/SKULL 2/3 Marco Sandoval DO [address] [place] [address] [facility] [id number] Referral ID Status Reason Start Date Expiration Date V isits Requested Visits Authorized [id number] Closed Auto-Generate d Referral 12/22/2022 01/21/2024 1 1 [facility] for visit NarrativeSELF REFERRAL PINCHED NERVE LOW BACK Gabstr Other Summary Purpose Family History No Family History Records FoundUnknown Family Member Name Dates Details Hypertension, benign: Father Status:Active Family history of malignant neoplasm of breast: Father, Grandmother(V16.3, Z80.3) Status:Active Family history of diabetes m ellitus: Father, Grandmother, Maternal Grandmother, Maternal Grandfather(V18.0, Z83.3) Status:Active Unknown Family Member Name Dates Details Hypertension, benign: Father Status:Active Family history of malignant neoplasm of breast: Father, Grandmother(V16.3, Z80.3) Status:Active Family history of diabetes m ellitus: Father, Grandmother, Maternal Grandmother, Maternal Grandfather(V18.0, Z83.3) Status:Active Unknown Family Member Name Dates Details Family history of diabetes m ellitus: Father, Grandmother, Maternal Grandmother, Maternal Grandfather(V18.0, Z83.3) Status:Active Family history of malignant neoplasm of breast: Father, Grandmother(V16.3, Z80.3) Status:Active Hypertension, benign: Father Status:Active Unknown Family Member Name Dates Details Family history of diabetes m ellitus: Father, Grandmother, Maternal Grandmother, Maternal Grandfather(V18.0, Z83.3) Status:Active Family history of malignant neoplasm of breast: Father, Grandmother(V16.3, Z80.3) Status:Active Hypertension, benign: Father Status:Active Unknown Family Member Name Dates Details Hypertension, benign: Father Status:Active Family history of malignant neoplasm of breast: Father, Grandmother(V16.3, Z80.3) Status:Active Family history of diabetes m ellitus: Father, Grandmother, Maternal Grandmother, Maternal Grandfather(V18.0, Z83.3) Status:Active Unknown Family Member Name Dates Details Hypertension, benign: Father Status:Active Family history of malignant neoplasm of breast: Father, Grandmother(V16.3, Z80.3) Status:Active Family history of diabetes m ellitus: Father, Grandmother, Maternal Grandmother, Maternal Grandfather(V18.0, Z83.3) Status:Active Advance Directives No Advanced Directives Records Found Advance Directive Response Recorded Date/ Time Advance Directives No September 12, 2023 3:09pm Reason for Referral Specialty Diagnoses / Procedures Referred By Edy copeland Referred To Contact Diagnoses Attention deficit hyperactivity disorder (ADHD), unspecified ADHD type Ashwini Matute PA-C [address] [place] [address] Referral ID Status Reason Start Date Expiration Date Visits Re quested Visits Authorized [id number] Closed 1 1 Referral ID Status Reason Start Date Expiration Date Visits Re quested Visits Authorized [id number] Closed 1 1 Referral ID Status Reason Start Date Expiration Date Visits Re quested Visits Authorized [id number] Closed 1 1 Referral ID Status Reason Start Date Expiration Date V isits Requested Visits Authorized [id number] Pending Review 1 1 Referral ID Status Reason Start Date Expiration Date Visits Re quested Visits Authorized [id number] Closed 1 1 Referral ID Status Reason Start Date Expiration Date Visits Re quested Visits Authorized [id number] Closed 1 1 Referral ID Status Reason Start Date Expiration Date Visits Re quested Visits Authorized [id number] Closed 1 1 Reason Aqua therapy - evalu ate and treat Diagnosis 1 Lumbar radiculopathy , right (M54.16) Referral Organization [facility] Ne urosurgery Referring Provider First Name Lorie Referring Provider Last Name Cary Referring Provider Specialty Nurse Pract itioner Referred Organization [facility] Referred Address [address] [place], [place],[address] Referred Provider Specialty Physical The rapist Referral Priority Routine Chief Complaint and Reason for Visit Chief Complaint M54.50 Additional Source Comments INFORMATION SOURCE (unrecogn ized section and content) DATE CREATED AUTHOR 07/25/2022 [facility] DATE CREATED AUTHOR AUTHOR'S ORGANIZ ATION 03/12/2023 [facility] DATE CREATED AUTHOR AUTHOR'S ORGANIZ ATION 05/03/2023 [facility] DATE CREATED AUTHOR AUTHOR'S ORGANIZ ATION 05/28/2023 [facility] DATE CREATED AUTHOR AUTHOR'S ORGANIZ ATION 06/22/2023 [facility] DATE CREATED AUTHOR AUTHOR'S ORGANIZ ATION 07/18/2023 [facility] DATE CREATED AUTHOR AUTHOR'S ORGANIZ ATION 09/17/2023 [facility] DATE CREATED AUTHOR AUTHOR'S ORGANIZ ATION 09/30/2023 [facility] Source Comments (unrecognize d section and content) In the event this informatio n is protected by the Federal Confidentiality of Alcohol and Drug Abuse Patient Records regulations: The Federal rules restrict any use of the information to criminally investigate or prosecute any alcohol or drug abuse patient.[facility] Hospital[facility] the event this information is protected by the Federal Confidentiality of Alcohol and Drug Abuse Patient Records regulations: The Federal rules restrict any use of the information to criminally investigate or prosecute any alcohol or drug abuse patient.[facility] Hospital[facility] the event this information is protected by the Federal Confidentiality of Alcohol and Drug Abuse Patient Records regulations: The Federal rules restrict any use of the information to criminally investigate or prosecute any alcohol or drug abuse patient.[facility] HospitalIn the event this information is protected by the Federal Confidentiality of Alcohol and Drug Abuse Patient Records regulations: The Federal rules restrict any use of the information to criminally investigate or prosecute any alcohol or drug abuse patient.[facility] HospitalIn the event this information is protected by the Federal Confidentiality of Alcohol and Drug Abuse Patient Records regulations: The Federal rules restrict any use of the information to criminally investigate or prosecute any alcohol or drug abuse patient.[facility] HospitalIn the event this information is protected by the Federal Confidentiality of Alcohol and Drug Abuse Patient Records regulations: The Federal rules restrict any use of the information to criminally investigate or prosecute any alcohol or drug abuse patient.[facility] HospitalIn the event this information is protected by the Federal Confidentiality of Alcohol and Drug Abuse Patient Records regulations: The Federal rules restrict any use of the information to criminally investigate or prosecute any alcohol or drug abuse patient.[facility] HospitalIn the event this information is protected by the Federal Confidentiality of Alcohol and Drug Abuse Patient Records regulations: The Federal rules restrict any use of the information to criminally investigate or prosecute any alcohol or drug abuse patient.[facility] HospitalIn the event this information is protected by the Federal Confidentiality of Alcohol and Drug Abuse Patient Records regulations: The Federal rules restrict any use of the information to criminally investigate or prosecute any alcohol or drug abuse patient.[facility] HospitalIn the event this information is protected by the Federal Confidentiality of Alcohol and Drug Abuse Patient Records regulations: The Federal rules restrict any use of the information to criminally investigate or prosecute any alcohol or drug abuse patient.[facility] HospitalIn the event this information is protected by the Federal Confidentiality of Alcohol and Drug Abuse Patient Records regulations: The Federal rules restrict any use of the information to criminally investigate or prosecute any alcohol or drug abuse patient.[facility] HospitalIn the event this information is protected by the Federal Confidentiality of Alcohol and Drug Abuse Patient Records regulations: The Federal rules restrict any use of the information to criminally investigate or prosecute any alcohol or drug abuse patient.[facility] HospitalIn the event this information is protected by the Federal Confidentiality of Alcohol and Drug Abuse Patient Records regulations: The Federal rules restrict any use of the information to criminally investigate or prosecute any alcohol or drug abuse patient.[facility] HospitalIn the event this information is protected by the Federal Confidentiality of Alcohol and Drug Abuse Patient Records regulations: The Federal rules restrict any use of the information to criminally investigate or prosecute any alcohol or drug abuse patient.[facility] HospitalIn the event this information is protected by the Federal Confidentiality of Alcohol and Drug Abuse Patient Records regulations: The Federal rules restrict any use of the information to criminally investigate or prosecute any alcohol or drug abuse patient.[facility] HospitalIn the event this information is protected by the Federal Confidentiality of Alcohol and Drug Abuse Patient Records regulations: The Federal rules restrict any use of the information to criminally investigate or prosecute any alcohol or drug abuse patient.[facility] HospitalIn the event this information is protected by the Federal Confidentiality of Alcohol and Drug Abuse Patient Records regulations: The Federal rules restrict any use of the information to criminally investigate or prosecute any alcohol or drug abuse patient.[facility] HospitalIn the event this information is protected by the Federal Confidentiality of Alcohol and Drug Abuse Patient Records regulations: The Federal rules restrict any use of the information to criminally investigate or prosecute any alcohol or drug abuse patient.[facility] HospitalIn the event this information is protected by the Federal Confidentiality of Alcohol and Drug Abuse Patient Records regulations: The Federal rules restrict any use of the information to criminally investigate or prosecute any alcohol or drug abuse patient.[facility] HospitalIn the event this information is protected by the Federal Confidentiality of Alcohol and Drug Abuse Patient Records regulations: The Federal rules restrict any use of the information to criminally investigate or prosecute any alcohol or drug abuse patient.[facility] HospitalIn the event this information is protected by the Federal Confidentiality of Alcohol and Drug Abuse Patient Records regulations: The Federal rules restrict any use of the information to criminally investigate or prosecute any alcohol or drug abuse patient.[facility] HospitalIn the event this information is protected by the Federal Confidentiality of Alcohol and Drug Abuse Patient Records regulations: The Federal rules restrict any use of the information to criminally investigate or prosecute any alcohol or drug abuse patient.[facility] the event this information is protected by the Federal Confidentiality of Alcohol and Drug Abuse Patient Records regulations: The Federal rules restrict any use of the information to criminally investigate or prosecute any alcohol or drug abuse patient.[facility] HospitalIn the event this information is protected by the Federal Confidentiality of Alcohol and Drug Abuse Patient Records regulations: The Federal rules restrict any use of the information to criminally investigate or prosecute any alcohol or drug abuse patient.[facility] HospitalIn the event this information is protected by the Federal Confidentiality of Alcohol and Drug Abuse Patient Records regulations: The Federal rules restrict any use of the information to criminally investigate or prosecute any alcohol or drug abuse patient.[facility] HospitalIn the event this information is protected by the Federal Confidentiality of Alcohol and Drug Abuse Patient Records regulations: The Federal rules restrict any use of the information to criminally investigate or prosecute any alcohol or drug abuse patient.[facility] HospitalIn the event this information is protected by the Federal Confidentiality of Alcohol and Drug Abuse Patient Records regulations: The Federal rules restrict any use of the information to criminally investigate or prosecute any alcohol or drug abuse patient.[facility] HospitalIn the event this information is protected by the Federal Confidentiality of Alcohol and Drug Abuse Patient Records regulations: The Federal rules restrict any use of the information to criminally investigate or prosecute any alcohol or drug abuse patient.[facility] HospitalIn the event this information is protected by the Federal Confidentiality of Alcohol and Drug Abuse Patient Records regulations: The Federal rules restrict any use of the information to criminally investigate or prosecute any alcohol or drug abuse patient.[facility] HospitalIn the event this information is protected by the Federal Confidentiality of Alcohol and Drug Abuse Patient Records regulations: The Federal rules restrict any use of the information to criminally investigate or prosecute any alcohol or drug abuse patient.[facility] HospitalIn the event this information is protected by the Federal Confidentiality of Alcohol and Drug Abuse Patient Records regulations: The Federal rules restrict any use of the information to criminally investigate or prosecute any alcohol or drug abuse patient.[facility] HospitalIn the event this information is protected by the Federal Confidentiality of Alcohol and Drug Abuse Patient Records regulations: The Federal rules restrict any use of the information to criminally investigate or prosecute any alcohol or drug abuse patient.[facility] HospitalIn the event this information is protected by the Federal Confidentiality of Alcohol and Drug Abuse Patient Records regulations: The Federal rules restrict any use of the information to criminally investigate or prosecute any alcohol or drug abuse patient.[facility] HospitalIn the event this information is protected by the Federal Confidentiality of Alcohol and Drug Abuse Patient Records regulations: The Federal rules restrict any use of the information to criminally investigate or prosecute any alcohol or drug abuse patient.[facility] HospitalIn the event this information is protected by the Federal Confidentiality of Alcohol and Drug Abuse Patient Records regulations: The Federal rules restrict any use of the information to criminally investigate or prosecute any alcohol or drug abuse patient.[facility] HospitalIn the event this information is protected by the Federal Confidentiality of Alcohol and Drug Abuse Patient Records regulations: The Federal rules restrict any use of the information to criminally investigate or prosecute any alcohol or drug abuse patient.[facility] HospitalIn the event this information is protected by the Federal Confidentiality of Alcohol and Drug Abuse Patient Records regulations: The Federal rules restrict any use of the information to criminally investigate or prosecute any alcohol or drug abuse patient.[facility] Reason for Visit (unrecogniz ed section and content) Reason Comments Received Outside Medical Records Reason Comments CARD New Patient Consult Reason Comments Back Pain [facility]. She has history of surgery for scoliosis 2004 and 2005. Reason Comments Scans Reason Comments Behavioral Health/Social Work Reason Comments Well Woman Specialty Diagnoses / Procedures Referred By Contac t Referred To Contact Diagnoses Counseling for control regarding intrauterine device (IUD) Procedures CONSULT TO COMPLIANCE TESTER OFFICE/OUTPATIENT [facility] MDM 60-74 MINUTES Ashwini Matute PA-C [address] [place] [address] Referral ID Status Reason Start Date Expiration Date Visits Requested Visits Authorized [id number] Pending Review PCP Requested Referral Auto-Generate d Referral 01/11/2023 01/11/2024 1 1 Reason Comments Needs Work Note Called off today due to Neuropathy. Pt is in a lot of pain. Episodes every 30 minutes. Specialty Diagnoses / Procedures Referred By Edy copeland Referred To Contact [facility] Diagnoses Palpitations Procedures ECHO ECHO TTHRC R-T 2D W/WOM-MODE COMPL SPEC&COLR D Jessee Hamilton MD [address] [place] [address] [facility] [place] [address] [place] [address] Referral ID Status Reason Start Date Expiration Date Visits Requested Visits Authorized [id number] Authorized Auto-Generat ed Referral 11/25/2022 09/04/2023 1 1 Reason Comments Radio Gen RMP Reason Comments Back Pain Started last da y. Right side below shoulder blade. Hurts to lift arm. Hurts to breathe. Concerned with spine due to Scoliosis Reason Comments Results Follow up labs Medication Follow-up Discuss Lexapro and Adderall Reason Onset Date Comments Refill Request 03/22/2023 Reason Onset Date Comments Refill Request 04/26/2023 Reason Onset Date Comments Refill Request 04/27/2023 Reason Comments Refill Request Reason Onset Date Comments Refill Request 05/18/2023 Reason Comments Refill Request Reason Comments Recheck 3 months, discuss me dications. Depression Patient states she i s drinking alcohol more frequently Reason Comments Follow Up Reason Onset Date Comments Refill Request 05/30/2023 Reason Onset Date Comments Refill Request 06/15/2023 Reason Comments Other [id number], [id number] Care Teams (unrecognized sec tion and content) Business Analyst Intern Relationship Specialty Start Date End Date Juju Ashwini Lim PA-C [address] [place] [place] [address] PCP - General Physician Finishing Operator 01/11/23 Business Analyst Intern Relationship Specialty Start Date End Date Juju Ashwini Lim PA-C [address] [place] [place] [address] PCP - General Physician Finishing Operator 01/11/23 Business Analyst Intern Relationship Specialty Start Date End Date Juju Ashwini Lim PA-C [address] [place] [place] [address] PCP - General Physician Finishing Operator 01/11/23 Business Analyst Intern Relationship Specialty Start Date End Date Juju Ashwini Lim PA-C [address] [place] [place] [address] PCP - General Physician Finishing Operator 01/11/23 Business Analyst Intern Relationship Specialty Start Date End Date Juju Ashwini Lim PA-C [address] [place] [place] [address] PCP - General Physician Finishing Operator 01/11/23 Business Analyst Intern Relationship Specialty Start Date End Date Juju Ashwini Lim PA-C [address] [place] [place] [address] PCP - General Physician Finishing Operator 01/11/23 Business Analyst Intern Relationship Specialty Start Date End Date Juju Ashwini Lim PA-C [address] [place] [address] PCP - General Physician Finishing Operator 01/11/23 Business Analyst Intern Relationship Specialty Start Date End Date Juju Ashwini Lim PA-C [address] [place] [place] [address] PCP - General Physician Finishing Operator 01/11/23 Business Analyst Intern Relationship Specialty Start Date End Date Juju Ashwini Lim PA-C [address] [place] [address] PCP - General Physician Finishing Operator 01/11/23 Business Analyst Intern Relationship Specialty Start Date End Date Juju Ashwini Lim PA-C [address] [place] [address], [place] [address] PCP - General Physician Finishing Operator 01/11/23 Business Analyst Intern Relationship Specialty Start Date End Date Juju Ashwini Lim PA-C [address] [place] [address], [place] [address] PCP - General Physician Finishing Operator 01/11/23 Business Analyst Intern Relationship Specialty Start Date End Date Juju Ashwini Lim PA-C [address] [place] [address], [place] [address] PCP - General Physician Finishing Operator 01/11/23 Business Analyst Intern Relationship Specialty Start Date End Date JujuAshwini PA-C [address] [place] [address], [place] [address] PCP - General Physician Finishing Operator 01/11/23 Business Analyst Intern Relationship Specialty Start Date End Date Juju Ashwini Lim PA-C [address] [place] [address], [place] [address] PCP - General Physician Finishing Operator 01/11/23 Business Analyst Intern Relationship Specialty Start Date End Date Juju Ashwini Lim PA-C [address] [place] [address], [place] [address] PCP - General Physician Finishing Operator 01/11/23 Business Analyst Intern Relationship Specialty Start Date End Date JujuAshwini PA-C [address] [place] [address], [place] [address] PCP - General Physician Finishing Operator 01/11/23 Business Analyst Intern Relationship Specialty Start Date End Date Juju Ashwini Lim PA-C [address] [place] [address], [place] [address] PCP - General Physician Finishing Operator 01/11/23 Business Analyst Intern Relationship Specialty Start Date End Date JujuAshwini PA-C [address] [place] [address], [place] [address] PCP - General Physician Finishing Operator 01/11/23 Business Analyst Intern Relationship Specialty Start Date End Date JujuAshwini PA-C [address] [place] [address], [place] [address] PCP - General Physician Finishing Operator 01/11/23 Business Analyst Intern Relationship Specialty Start Date End Date JujuAshwini PA-C [address] [place] [address], [place] [address] PCP - General Physician Finishing Operator 01/11/23 Business Analyst Intern Relationship Specialty Start Date End Date JujuAshwini PA-C [address] [place] [address], [place] [address] PCP - General Physician Finishing Operator 01/11/23 Business Analyst Intern Relationship Specialty Start Date End Date JujuAshwini PA-C [address] [place] [address] PCP - General Physician Finishing Operator 01/11/23 Business Analyst Intern Relationship Specialty Start Date End Date Ashwini Matute PA-C [address] [place] [address] PCP - General Physician Finishing Operator 01/11/23 Business Analyst Intern Relationship Specialty Start Date End Date Ashwini Matute PA-C [address] [address] PCP - General 02/10/23 Business Analyst Intern Relationship Specialty Start Date End Date Ashwini Matute PA-C [address] [address] PCP - General 02/10/23 Team Status: Active Member Role Status Dates PHYSICIAN NO FAMILY Primary Care Provider Active Team Status: Inactive Member Role Status Dates PHYSICIAN NO FAMILY Primary Care Provider Active KRISTEN Paz[employer] Attending Provider Active Goals (unrecognized section and content) Goals may be documented in a n alternate sectionNo Information FOR RECORDS PERTAINING TO PATIENTS WHO ARE OR HAVE BEEN ENROLLED IN A CHEMICAL DEPENDENCY/SUBSTANCEABUSE PROGRAM, SOME INFORMATION MAY BE OMITTED. This clinical summary was aggregated from multiple sources. Caution should be exercised in using it in the provision of clinical care. This summary normalizes information from multiple sources, and as a consequence, information in this document may materially change the coding, format and clinical context of patient data. In addition, data may be omitted in some cases. CLINICAL DECISIONS SHOULD BE BASED ON THE PRIMARY CLINICAL RECORDS. [facility] [employer] [facility]. provides no warranty or guarantee of the accuracy or completeness of information in this document.
[2023-10-03 09:19] LABS: HCG Qualitative NEGATIVE (NEGATIVE)
[2023-10-03 09:45] VITALS: BP 121/87; PULSE 69; RESP 14; TEMP 37.2; O2SAT 100
[2023-10-03] MEDS: BUPIVACAINE HCL 0.25% PF 25 MG/10 ML VIAL INJ (10:34)
[2023-10-03] MEDS: IOHEXOL 240 MG/ML - 10 ML VIAL INJ (10:34)
[2023-10-03] MEDS: LIDOCAINE HCL 2% PF 100 MG/5 ML VIAL 2 ML INJ (10:34)
[2023-10-03] MEDS: TRIAMCINOLONE ACETONIDE 40 MG/ML VIAL 80 MG INJ (10:34)
[2023-10-03] MEDS: 0.9 % SODIUM CHLORIDE 10 ML INJ (10:34)
[2023-10-03 10:37] VITALS: BP 119/85; BP 122/84; PULSE 68; PULSE 70; RESP 17; RESP 18; O2SAT 98
--- NOTE | 2023-10-03 10:40 | W.PM.PROCNOT ---
Date of procedure: 10/03/23 Pre-op diagnosis: Lumbar stenosis with neurogenic claudication, lumbar postlaminectomy synd Post-op diagnosis: same as pre-op Procedure: Procedure: Right L5-S1, S1-2 transforaminal epidural steroid injection Medications: Bupivacaine 0.25% 2cc, lidocaine 2% 1cc, normal saline 0.9% 1cc, kenalog 80mg The patient was seen and examined in the preoperative holding area.? Informed consent was obtained and placed on the chart.? Patient was brought to the medical procedure unit and placed in the prone position where a timeout was completed verifying the correct patient, procedure site, position, and planned special equipment using sterile aseptic technique.? Under direct fluoroscopic visualization a 25-gauge Quincke tipped spinal needle was advanced to the designated neural foramen where contrast dye was injected to show adequate spread.? The needle was inserted at level right L5-S1. There was no evidence of vascular or adverse uptake.? Epidural spread was appreciated.? The above-mentioned injectate was then placed in a 1.5 mL aliquot preceded by negative aspiration.? The needle was removed. The needle was inserted and the procedure repeated at level right S1-2.? The surgery site was covered.? Patient was taken to the postprocedural recovery area and monitored for an appropriate length of time before found suitable for discharge in the accompaniment of a responsible adult. Anesthesia: Local Surgeon: Chucky Hernandez Pathology: none sent Condition: stable Disposition: no change
== END 2023-10-03 10:49 | disposition home or self-care (01) ==
LOC: SURGOUT 08:47
PROVIDERS: PCP Nurse Practitioner Primary Care; Visit Provider Anesthesiology
DX: M48.062 Spinal stenosis, lumbar region with neurogenic claudication (principal); M96.1 Postlaminectomy syndrome, not elsewhere classified
CPT/HCPCS: 36415; 64483; 64484; 84703; J0665; J3301; Q9966

== ENCOUNTER 2023-10-19 14:17 | Outpatient (OUT) | payer OTHER, SELFPAY ==
--- NOTE | 2023-10-19 14:34 | PM.CN ---
Consult Note: HPI Data of Consult Patient: known to practice within the last 3 years Consult date: 09/26/23 Requesting Physician: Ele Smith NP Primary Care Provider: ERLINDA BEE Consult Narrative Reason for consult: Right lower leg and foot pain Narrative: 33yof who presents for evaluation. Had scoliosis corrective surgery in youth, thoracolumbar fusion in place. Has persistent right lower extremity and foot pain. Lumbar CT shows foraminal stenosis in lower lumbar spine. Has engaged in >6 weeks of provider directed home exercise course, with minimal benefit. Uses gabapentin and lyrica, which has helped keep symptoms at bay. Denies adverse med side effects. Patient recently underwent right L5-S1 S1-S2 TFESI with 60% ongoing relief and functional improvement. Currently benefiting from aquatherapy. Today pain 0/10, pain intermittent and increasing to 4/10 at times. cc:: CC: Ele Smith NP Review of Systems ROS Status of ROS 10 or more systems reviewed and unremarkable except as noted in history and below Meds Home Medications and Allergies Home Medications Medication Instructions Recorded Confirmed Type benfotiamine 150 mg capsule 150 mg PO DAILY 09/26/23 10/03/23 History bupropion HCl 150 mg tablet,12 hr 150 mg PO DAILY 09/26/23 10/03/23 History sustained-release (Wellbutrin SR) cholecalciferol (vitamin D3) 1,250 50,000 unit PO QWEEK 09/26/23 10/03/23 History mcg (50,000 unit) capsule dextroamphetamine-amphetamine 10 10 mg PO DAILY 09/26/23 10/03/23 History mg tablet (Adderall) dextroamphetamine-amphetamine ER 30 mg PO DAILY 09/26/23 10/03/23 History 30 mg 24hr capsule,extend release (Adderall XR) escitalopram oxalate 20 mg tablet 20 mg PO DAILY 09/26/23 10/03/23 History (Lexapro) gabapentin 600 mg tablet 1,200 mg PO Q8H 09/26/23 10/03/23 History ibuprofen 800 mg tablet 800 mg PO DAILY PRN pain 09/26/23 10/03/23 History metoprolol tartrate 25 mg tablet 25 mg PO Q12H 09/26/23 10/03/23 History pregabalin 75 mg capsule 75 mg PO Q8H 09/26/23 10/03/23 History mecobalamin (vitamin B12) 10,000 mcg IM 10/03/23 History mcg solution for injection Allergies Allergy/AdvReac Type Severity Reaction Status Date / Time No Known Drug Allergies Allergy Verified 10/03/23 09:40 Exam Narrative Exam Narrative: Psych-alert and oriented x 3. Attentive and appropriate, constitutionally normal, displays normal mood and affect per situation. There are no obvious deficits in memory, reasoning, or intellect.? Skin-no obvious rashes, bruising, erythema noted to the patient's area of pain.? Extremities- extremities are warm with minimal edema and palpable pulses. Lumbar-tenderness to palpation noted in the lumbar spine and paraspinal musculature. Pain is not elicited with flexion, extension, and lateral rotation of the lumbar spine. Range of motion is not diminished with these motions. Facet loading maneuvers are negative.? Strength-noted to be unremarkable with the exception of decreased strength rated at 4 out of 5 in right anterior tibialis, posterior tibialis. Sensory-no notable sensory deficits in the bilateral lower extremities to touch or pinprick in all dermatomal distributions with the exception to decreased sensation to the right L5, S1 dermatomal distribution Coordination remains intact.? Gait remains non-antalgic Constitutional Documenting provider has reviewed patient's vital signs: yes Common normals: no apparent distress, oriented x3, healthy appearing, alert and well nourished General appearance: cooperative [facility] Common normals: normocephalic, hearing grossly normal bilaterally and moist oral mucous membranes Head and scalp: normocephalic Eye Common normals: PERRL Pupil: PERRL Neck & C-Spine Common normals: full ROM General: normal visual inspection Chest Common normals: inspection of chest normal Respiratory Common normals: normal respiratory effort, no retractions and no use of accessory muscles Neuro Common normals: oriented x3, CN's II-XII intact bilaterally, moves all extremities, no focal motor deficits, no sensory deficits noted and deep tendon reflexes 2+ bilaterally Sensorium/orientation: alert Motor exam: strength 5/5 throughout and no movement abnormalities noted Psych Common normals: mental status grossly normal, thought process normal, cooperative, affect normal, speech normal and activity/motor behavior normal Speech: normal speech Thought process: normal thought process Results Additional Findings Additional findings: I have checked an [place]AR[place] report on this patient today and there are no aberrancies noted in the prescribing history.?? A drug screen was completed and reviewed within the last year, and if there has not been a drug screen completed we ordered one today to monitor higher risk, state monitored pain medication use. As part of providing excellent, safe, comprehensive care, the following was completed at our patient's visit: 1. A medication reconciliation and review to ensure accurate knowledge of current/active medications, including asking our patients to inform us about any [id number] medications or herbal remedies/nutritional supplements/alternative remedies. 2. A review to specifically ensure our patients have had annual screening for: elevated body mass index (BMI), tobacco use, screening for depression, and screening for unhealthy alcohol use. When screening is concerning, patients are provided with education and the specific recommendation to discuss the concerning health issue and treatment options with their primary care provider. Assessment and Plan Assessment and Plan (1) Lumbar stenosis with neurogenic claudication: (2) Lumbar postlaminectomy syndrome: Plan continue current medication regimen, denies side effects continue aquatherapy and HEP as tolerated f/u 2 months
== END 2023-10-19 14:18 | disposition home or self-care (01) ==
LOC: PM 14:17
PROVIDERS: PCP Nurse Practitioner Primary Care; Visit Provider Nurse Practitioner
DX: M48.062 Spinal stenosis, lumbar region with neurogenic claudication (principal); M96.1 Postlaminectomy syndrome, not elsewhere classified
CPT/HCPCS: G0463

== ENCOUNTER 2023-11-24 15:05 | Outpatient (OUT) | payer OTHER, SELFPAY ==
--- NOTE | 2023-11-24 16:05 | CA_ITS ---
Patient Name: SHASHANK MORSE MR#: [id number] : 1990 Exam Date: 11/24/2023 Ordering Doctor: KIANA GAUTHIER ECHOCARDIOGRAM REPORT PROCEDURE: CA ECHO DOPPLER COMPLETE INDICATIONS: Paroxysmal atrial fibrillation COMPARISON: None. DESCRIPTION: COMPLETE ECHOCARDIOGRAM Real-time transthoracic echocardiography with 2D, M-mode, spectral and color flow Doppler performed. QUALITY: Technical quality was good. LEFT VENTRICLE: Normal chamber size. Normal left ventricular wall thickness. Global left ventricular systolic function is normal. LV EF: Estimated left ventricular ejection fraction is normal at 60-65%. DIASTOLIC: Normal diastolic function. ATRIAL SEPTUM: LEFT ATRIUM: Normal chamber size. RIGHT ATRIUM: Normal chamber size. RIGHT VENTRICLE: Normal chamber size. Normal right ventricular systolic function. TRICUSPID VALVE: Normal mobility and thickness. No stenosis with trivial regurgitation. No evidence of pulmonary hypertension. RVSP 24 mmHg MITRAL VALVE: Normal mobility and thickness. No evidence of mitral valve stenosis. There is no mitral annular calcification. Trivial mitral regurgitation. AORTIC VALVE: Normal trileaflet appearance. No visible sclerosis. Normal leaflet mobility. No evidence of aortic valve stenosis. No aortic regurgitation. AORTIC ROOT: Normal diameter and appearance. PULMONIC VALVE: Normal thickness and mobility. No stenosis. Trivial regurgitation. PERICARDIUM: No evidence of pericardial effusion. IVC: Collapses with inspirations. Normal size. PLEURA: CONCLUSION: 1. Normal left ventricular size and systolic function. LVEF is estimated at 60 to 65%. 2. Normal right ventricular size and systolic function. 3. No significant valvular dysfunction. 4. Normal right-sided pressures. Adult Echocardiography Procedure Report Left Ventricle LVEDD (3.7 - 5.6 cm): 4.59 cm LVESD (2.2 - 4.0 cm): 3.26 cm LVIVS thickness (0.6 - 1.2 cm): 0.75 cm LVPW thickness (0.5 - 1.0 cm): 0.92 cm e': 0.15 m/s E - e': 4.55 LVOT Max Gradient: 3.07 mm[Hg] LVOT Area (cm2): 0.88 m/s Peak Velocity (LVOT): 0.88 m/s Mean Velocity (LVOT): 0.60 m/s LVOT Diameter 1.74 cm Left Ventricular Ejection Fraction: 60-65 % Left Atrium LA Volume Index (2D A2C): 28.17 ml/m2 Left Atrium Systolic Dimension: 3.12 cm Mitral Valve MV E to A Ratio: 1.37 Mitral Valve A-Wave Peak Velocity: 0.50 m/s Mitral Valve E-Wave Peak Velocity: 0.68 m/s Right Ventricle RV Internal Diastolic Dimension: 2.92 cm Aorta AO Root Diam: 2.63 cm Ascending Ao Diam: 2.55 cm Aortic Valve AoV Area (Peak Ricki): 1.68 cm2, 1.68 cm2 AoV Area (VTI): 1.82 cm2, 1.82 cm2 Peak Velocity(Antegrade Flow): 1.24 m/s Peak Gradient(Antegrade Flow): 6.11 mm[Hg] Mean Velocity(Antegrade Flow): 0.76 m/s Mean Gradient(Antegrade Flow): 2.79 mm[Hg] Velocity Time Integral: 25.90 cm Tricuspid Valve Peak Velocity (Regurgitant Flow): 2.27 m/s, 2.23 m/s, 1.89 m/s Pulmonic Valve Mean Gradient: 1.77 mm[Hg] Mean Velocity: 0.62 m/s Peak Velocity: 0.90 m/s, 0.93 m/s Peak Gradient: 3.47 mm[Hg], 3.21 mm[Hg] Right Atrium Right Atrium Systolic Pressure: 27.28 ml, 27.28 ml Dictated by: Jon Robbins M.D. on 11/25/2023 at 18:14 Approved by: Jon Robbins M.D. on 11/25/2023 at 18:17
== END 2023-11-24 15:06 | disposition home or self-care (01) ==
LOC: CARD 15:07
PROVIDERS: PCP Nurse Practitioner Primary Care; Visit Provider Nurse Practitioner
DX: I48.0 Paroxysmal atrial fibrillation (principal)
CPT/HCPCS: 93306

== ENCOUNTER 2023-12-15 14:18 | Outpatient (OUT) | payer OTHER, SELFPAY ==
--- NOTE | 2023-12-15 14:39 | PM.CN ---
Consult Note: HPI Data of Consult Patient: known to practice within the last 3 years Consult date: 09/26/23 Requesting Physician: Ele Smith NP Primary Care Provider: Justo Mendez Consult Narrative Reason for consult: f/u Narrative: 33yof who presents for evaluation. Had scoliosis corrective surgery in youth, thoracolumbar fusion in place. Has persistent right lower extremity and foot pain. Lumbar CT shows foraminal stenosis in lower lumbar spine. Has engaged in >6 weeks of provider directed home exercise course, with minimal benefit. Uses gabapentin and lyrica, which has helped keep symptoms at bay. Denies adverse med side effects. Patient recently underwent right L5-S1 S1-S2 TFESI with 50% ongoing relief and functional improvement. Right foot pain 3/10 increasing to 5/10 at this time, continues to report numbness tingling burning. Patient noticing pain returning, still improved from prior to JEFFERY 10/10 at its worst. cc:: CC: Ele Smith NP Review of Systems ROS Status of ROS 10 or more systems reviewed and unremarkable except as noted in history and below Musculoskeletal Reports: extremity pain Meds Home Medications and Allergies Home Medications ?Medication ?Instructions ?Recorded ?Confirmed ?Type benfotiamine 150 mg capsule 150 mg PO DAILY 09/26/23 10/03/23 History bupropion HCl 150 mg tablet,12 hr 150 mg PO DAILY 09/26/23 10/03/23 History sustained-release (Wellbutrin SR) cholecalciferol (vitamin D3) 1,250 50,000 unit PO QWEEK 09/26/23 10/03/23 History mcg (50,000 unit) capsule dextroamphetamine-amphetamine 10 10 mg PO DAILY 09/26/23 10/03/23 History mg tablet (Adderall) dextroamphetamine-amphetamine ER 30 mg PO DAILY 09/26/23 10/03/23 History 30 mg 24hr capsule,extend release (Adderall XR) escitalopram oxalate 20 mg tablet 20 mg PO DAILY 09/26/23 10/03/23 History (Lexapro) gabapentin 600 mg tablet 1,200 mg PO Q8H 09/26/23 10/03/23 History ibuprofen 800 mg tablet 800 mg PO DAILY PRN pain 09/26/23 10/03/23 History metoprolol tartrate 25 mg tablet 25 mg PO Q12H 09/26/23 10/03/23 History pregabalin 75 mg capsule 75 mg PO Q8H 09/26/23 10/03/23 History mecobalamin (vitamin B12) 10,000 mcg IM 10/03/23 History mcg solution for injection gabapentin 600 mg tablet 1,200 mg (2 x 600 mg) PO TID #180 12/15/23 Rx tabs pregabalin 75 mg capsule (Lyrica) 75 mg PO TID #90 caps 12/15/23 Rx Allergies Allergy/AdvReac Type Severity Reaction Status Date / Time No Known Drug Allergies Allergy Verified 10/03/23 09:40 Exam Narrative Exam Narrative: Psych-alert and oriented x 3. Attentive and appropriate, constitutionally normal, displays normal mood and affect per situation. There are no obvious deficits in memory, reasoning, or intellect.? Skin-no obvious rashes, bruising, erythema noted to the patient's area of pain.? Extremities- extremities are warm with minimal edema and palpable pulses. Lumbar-tenderness to palpation noted in the lumbar spine and paraspinal musculature. Pain is not elicited with flexion, extension, and lateral rotation of the lumbar spine. Range of motion is not diminished with these motions. Facet loading maneuvers are negative.? Strength-noted to be unremarkable with the exception of decreased strength rated at 4 out of 5 in right anterior tibialis, posterior tibialis. Sensory-no notable sensory deficits in the bilateral lower extremities to touch or pinprick in all dermatomal distributions with the exception to decreased sensation to the right L5, S1 dermatomal distribution Coordination remains intact.? Gait remains non-antalgic Constitutional Documenting provider has reviewed patient's vital signs: yes Common normals: no apparent distress, oriented x3, healthy appearing, alert and well nourished General appearance: cooperative [facility] Common normals: normocephalic, hearing grossly normal bilaterally and moist oral mucous membranes Head and scalp: normocephalic Eye Common normals: PERRL Pupil: PERRL Neck & C-Spine Common normals: full ROM General: normal visual inspection Chest Common normals: inspection of chest normal Respiratory Common normals: normal respiratory effort, no retractions and no use of accessory muscles Neuro Common normals: oriented x3, CN's II-XII intact bilaterally, moves all extremities, no focal motor deficits, no sensory deficits noted and deep tendon reflexes 2+ bilaterally Sensorium/orientation: alert Motor exam: strength 5/5 throughout and no movement abnormalities noted Psych Common normals: mental status grossly normal, thought process normal, cooperative, affect normal, speech normal and activity/motor behavior normal Speech: normal speech Thought process: normal thought process Results Additional Findings Additional findings: If on a controlled substance or opioids, I have checked an [place] report on this patient and there are no aberrancies noted in the prescribing history.??If on a controlled substance or opioid a drug screen was completed and reviewed within the last year, and if there has not been a drug screen completed we ordered one today to monitor higher risk, state monitored pain medication use. As part of providing excellent, safe, comprehensive care, the following was completed at our patient's visit: 1. A medication reconciliation and review to ensure accurate knowledge of current/active medications, including asking our patients to inform us about any [id number] medications or herbal remedies/nutritional supplements/alternative remedies. 2. A review to specifically ensure our patients have had annual screening for screening for depression, screening for tobacco use, and screening for unhealthy alcohol use. For concerning screenings had a discussion with the patient, provided patient education, and recommended follow-up with primary care provider when appropriate. If patient noted with a risk of falling, they received education on strength, gait, and balance training to prevent future risk of falling. Assessment and Plan Assessment and Plan (1) Lumbar stenosis with neurogenic claudication: (2) Lumbar postlaminectomy syndrome: (3) Myofascial pain: Assessment and Plan: intermittent right calf muscle cramps/spasms, worse at night Plan start tizanidine 4mg BID PRN myofascial pain continue current medication regimen, denies side effects continue aquatherapy and HEP as tolerated patient inquiring about disability paperwork, I discussed with the patient that we typically refer to PCP for FMLA and disability. I do not think the patient would qualify for disability but could benefit from work restrictions. Can send for a work function evaluation at [facility] in the future. Pt to discuss this with her lawyer real estate in the meantime. f/u 6 weeks
--- OUTSIDE RECORDS SUMMARY | 2023-12-15 14:42 | XMS_ITS | CCD ---
Author Organization [facility] Care Team Providers Care Chemical Laboratory Scientist Name Role Phone BEN DIAZ Attending Unavailable Unavailable Primary Care Provider Ashwini Verdin PA-C Primary Care Provid er Update Needed Unavailable Unavailable Unavailable Unavailable Ashwini Matute Unavailable [phone] MD TERRIE BROWN Referring UnavailMD TERRIE Ramos Admitting Unavailterry e DINA DENNIS Attending Unavailable Amy, . Ashwini Guerrero Primary Care Un available MD TERRIE BROWN Attending Unavailterry pacheco Self, Referral Referring Unavailable Amy, Ms. Ashwini Guerrero Primary Care Un available MD TERRIE BROWN Attending Unavailterry Matute, . Ashwini Guerrero Primary Care Un available Ashwini Matute PA-C Primary Care Prov ider TERRIE BROWN Attending Unavailable ASHWINI MATUTE Primary Care Unavai lable NO FAMILY, PHYSICIAN Primary Care Provider Unava ilable SAUL Townsend Attending Provider Lorie Townsend Unavailable ASHWINI MATUTE Attending Unavaila ARIA Carr Attending Unavailable ASHWINI MATUTE Referring Unavaila ASHWINI Tyson Primary Care Unavaila ble ASHWINI MATUTE Primary Care Unavaila CHITRA Souza Attending Unavailable ASHWINI MATUTE Primary Care Unavaila CHITRA Souza Attending Unavailable ASHWINI MATUTE Primary Care Unavaila CHITRA Souza Referring Unavailable FINEFROCK, ASHWINI L Referring Unavaila ble FINEFROCK, ASHWINI L Primary Care Unavaila ble FINEFROCK, ASHWINI L Attending Unavaila ble FINEFROCK, ASHWINI L Primary Care Unavaila ble GLASARIA SCHMIDT Attending Unavailable ARIA IZQUIERDO Referring Unavailable FINEFROCK, ASHWINI L Primary Care Unavaila ble FINEFROCK, ASHWINI L Attending Unavaila ble FINEFROCK, ASHWINI L Primary Care Unavaila ble FINEFROCK, ASHWINI L Referring Unavaila ble FINEFROCK, ASHWINI L Primary Care Unavaila ble FINEFROCK, ASHWINI L Primary Care Unavaila ble JESSEE HAMILTON Attending Unavailable MARCO SLADE Attending Unavailable MARCO SLADE Referring Unavailable David ROSE, Chucky Landaverde Attending Unavailable David ROSE, Chucky Landaverde Attending Unavailable Lorie Townsend Attending Unavailable Lorie Townsend Admitting Unavailable NO FAMILY, PHYSICIAN Primary Care Unavailable Medications Current Medications Medication Drug Class(es) [...] every afternoon. Take 1 capsule by mo ut once daily for 30 days. Take 1 [...] 25, 2023. Take 1 tablet by amrita every afternoon for 30 days. Do not [...] on above: Take 1 capsule by mo [facility] once daily. atomoxetine 100 mg oral capsule (9 sources) Norepinephrine Reuptake Inhibitor Start: 07-23-20 End: 09-27-19 23 atomoxetine (Strattera) 100 mg capsule Strattera 100 [...] 07/16/2023 Active take 1 tablet by amrita every twenty-four hours Wellbutrin SR 150 MG 1 tablet in the morning Orally Once a day Active Comment on above: Take 1 tablet by amrita once daily. take 1 tablet by amrita [...] : 11-Dec-2012 Active take 1 tablet by [facility] every twenty-four hours Gabapentin 600 MG 1 tablet Orally Once a day Active Comment on above: TAKE 1 TABLET THREE TIMES A DAY Take 2 tablets by [facility] three times daily for 30 days. Take 2 tablets by [facility] three times a day for 30 days. [...] the second pill 8-10 hours prior to [facility] [employer] appt for cervical dilation. 2 tablet 0 02/03/2023 02/04/2023 Discontinued Comment on above: 1 tablet as directed . 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 1 tablet as directed for 2 doses. 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 perflutren lipid microspheres [...] Oral Tablet Quantity: 90 Refills: 0 Ordered: 15-May-2013 DO Start : 15-May-2013 Active traMADol hydrochloride [...] Start: 07-24-2022 take 2 tablets by mo ut twice daily, then take 1 tablet by [...] for 23 days Take 1 tablet by amrita twice daily. ergocalciferol 1.25 mg oral capsule [...] once V itamin D (Ergocalciferol) 1.25 MG (58687 UT) Oral Capsule Quantity: 12 Refills: 0 Ordered: 26-Sep-2013 DO Start : 26-Sep-2013 Active take 1 capsule by mo ut every week ergocalciferol (Vitamin D-2) 1.25 MG (19810 UT) capsule Take 1 capsule (1,250 mcg) by mouth 1 (one) time per week. 0 Active Comment on above: TAKE 1 CAPSULE ONCE A WEEK Take 1 capsule by mo ut one time a week. metoprolol tartrate 25 [...] above: Take 1 tablet by amrita th twice daily. take 1 tablet by amrita th twice a day Problems Active Problems Problem [...] Translations: [Paroxysmal atrial fibrillation] Onset: 07-24-2022 Chronic Cardiac dysrhythmias (4 sources) Palpitations; Translations: [Palpitations] Onset: 07-24-2022 Episodic Immunizations and screening for infectious disease (1 [...] [Polyneuropathy, unspecified] Chronic Other nervous system disorders (2 sources) Polyneuropathy, unspecified; Translations: [Polyneuropathy, unspecified] Onset: 07-14-2023 Chronic Other nervous system disorders (1 source) Polyneuropathy; Translations: [Other specified polyneuropathies] Chronic Other nervous system disorders (1 source) Other specified polyneuropathies Chronic Other nervous system disorders (1 source) Other chronic pain; Translations: [Chronic bilateral low back pain with right-sided sciatica] Onset: 12-22-2022 Chronic Other nervous system disorders (1 source) [...] or radiculopathy, lumbosacral region] Onset: 02-10-2023 Chronic Unclassified (2 sources) Low back pain, unspecified; [...] [Encounter to establish care] Onset: 02-15-2023 Episodic Contraceptive and procreative management (2 sources) Contraception status; Translations: [Encounter for other general counseling and advice on contraception] Onset: 02-03-2023 Episodic Other connective tissue disease (2 sources) Arthrodesis status; Translations: [Arthrodesis status] Onset: 12-22-2022 Episodic Spondylosis; intervertebral disc disorders; other back problems (20 sources) Chronic low back pain; Translations: [Lumbago with sciatica, right side] Onset: 12-22-2022 Episodic Unclassified (1 source) Low back pain, unspecified; Translations: [Low back pain, unspecified] Onset: 03-14-2023 Results Test Name Value Interpretation Reference Range Facility CNCOon 10-14-2023 [facility] Letter Text Normal [facility] XR lumbar spine 6V w bending on 09-12-2023 XR lumbar spine 6V w bending [facility] [place] [address] [place] [address] XRay Report Signed Patient: Hue Titus MR#: [id number] : 1990 Acct:[id number] Age/Sex: 33 / F ADM Date: 09/12/23 Loc: XD Room: Type: [facility] Attending Dr: Lorie HUGHES Copies to: SAUL [...] Amberly Livingston M.D.09/12/2023 5:18 PM Dictation Location: [facility] Transcribed By: [facility] 09/12/231717 Dictated By: Amberly Livingston MD 09/12/231714 Signed By: 09/12/231717 [facility] CNOVon 05-27-2023 CNOV Office Visit ([facility] ) HUE TITUS ([id number]) 1990 [facility] Date Time Provider Department 05/27/23 1:30 PM JESSEE HAMILTON During your visit today, we recorded the following information about you: Pulse Blood pressure Weight Height 97/minute 124/76 65.8 kg 1.702 m Jessee Hamilton MD 05/28/2023 8:48 AM Signed PRIMARY CARE PHYSICIAN: Ashwini Matute [address] [place] [address] REFERRING PHYSICIAN: No referring provider defined for this encounter. CHIEF COMPLAINT: Abnormal Holter HISTORY OF PRESENT ILLNESS: From my office notes on September 27, 2022 Probably paroxysmal atrial fibrillation, with spontaneous conversion into normal sinus rhythm. [id number] based on the information we have [...] disorder) Ovarian cyst PAF (paroxysmal atrial fibrillation) ([facility]) 07/2022 follows with cardiology Scoliosis SVT, lower [...] Date Va (more content not included)... Normal [facility] CBC W Auto Differential pane l (Bld)on 05-26-2023 Basophils (Bld) [#/Vol] 0.05 10*3/uL <0.11 k/uL [facility] Basophils/100 WBC (Bld) 0.7 % [facility] Differential cell count method Nom (Bld) Auto [facility] Eosinophils (Bld) [#/Vol] 0.14 10*3/uL <0.46 k/uL [facility] Eosinophils/100 WBC (Bld) 1.9 % [facility] Erythrocyte distribution width (RBC) [Ratio] 13.4 % 11.5 - 15.0 % [facility] Hematocrit (Bld) [Volume fraction] 44.3 % 36.0 - 46.0 % [facility] Hemoglobin (Bld) [Mass/Vol] 14.6 g/dL 11.5 - 15.5 g/dL [facility] Immature granulocytes (Bld) [#/Vol] 0.07 10*3/uL <0.10 k/uL [facility] Immature granulocytes/100 WBC (Bld) 0.9 % [facility] Lymphocytes (Bld) [#/Vol] 1.92 10*3/uL 1.00 - 4.00 k/uL [facility] Lymphocytes/100 WBC (Bld) 26.0 % [facility] MCH (RBC) [Entitic mass] 31.7 pg 26.0 - 34.0 pg [facility] MCHC (RBC) [Mass/Vol] 33.0 g/dL 30.5 - 36.0 g/dL [facility] MCV (RBC) [Entitic vol] 96.3 fL 80.0 - 100.0 fL [facility] Monocytes (Bld) [#/Vol] 0.63 10*3/uL <0.87 k/uL [facility] Monocytes/100 WBC (Bld) 8.5 % [facility] Neutrophils (Bld) [#/Vol] 4.57 10*3/uL 1.45 - 7.50 k/uL [facility] Neutrophils/100 WBC (Bld) 62.0 % [facility] Nucleated RBC (Bld) [#/Vol] <0.01 k/uL [facility] Nucleated RBC/100 WBC (Bld) [Ratio] 0.0 /100 WBC [facility] Platelet mean volume (Bld) [Entitic vol] 9.1 fL 9.0 - 12.7 fL [facility] Platelets (Bld) [#/Vol] 385 10*3/uL 150 - 400 k/uL [facility] RBC (Bld) [#/Vol] 4.60 10*6/uL 3.90 - 5.2 0 m/uL [facility] WBC (Bld) [#/Vol] 7.38 10*3/uL 3.70 - 11. 00 k/uL [facility] Basophils (Bld) [#/Vol] 0.05 10*3/uL Normal <0.11 [facility] Comment on above: Order Comment: Speci men Type: BLOOD SPECIMENOrdering Facility: [facility] Address: [address] [address] Performed By: #### 5 7021-8 ####[facility] LABCL[facility] [id number] [place] [address] [place] Basophils/100 WBC (Bld) 0.7 % Normal [facility] Comment on above: Order Comment: Speci men Type: BLOOD SPECIMENOrdering Facility: [facility] Address: [address] [address] Performed By: #### 5 7021-8 ####[facility] LABCL[facility] [id number] [place] [address] [place] Differential cell count method Nom (Bld) Auto Normal [facility] Comment on above: Order Comment: Speci men Type: BLOOD SPECIMENOrdering Facility: [facility] Address: [address] [address] Performed By: #### 5 7021-8 ####[facility] LABCL[facility] [id number] [place] [address] [place] Eosinophils (Bld) [#/Vol] 0.14 10*3/uL Normal <0.46 [facility] Comment on above: Order Comment: Speci men Type: BLOOD SPECIMENOrdering Facility: [facility] Address: [address] [place] [address] Performed By: #### 5 7021-8 ####[facility] LABCL[facility] [id number] [place] [address] [place] Eosinophils/100 WBC (Bld) 1.9 % Normal [facility] Comment on above: Order Comment: Speci men Type: BLOOD SPECIMENOrdering Facility: [facility] Address: [address] [place] [address] Performed By: #### 5 7021-8 ####[facility] LABIA [id number] [place] [address] [place] Erythrocyte distribution width (RBC) [Ratio] 13.4 % Normal 11.5-15.0 [facility] Comment on above: Order Comment: Speci men Type: BLOOD SPECIMENOrdering Facility: [facility] Address: [address] [place] [address] Performed By: #### 5 7021-8 ####[facility] LABIA [id number] [place] [address] [place] Hematocrit (Bld) [Volume fraction] 44.3 % Normal 36.0-46.0 [facility] Comment on above: Order Comment: Speci men Type: BLOOD SPECIMENOrdering Facility: [facility] Address: [address] [place], [place] [address] Performed By: #### 5 7021-8 ####[facility] LABIA [id number] [place] [address] [place] Hemoglobin (Bld) [Mass/Vol] 14.6 g/dL Normal 11.5-15.5 [facility] Comment on above: Order Comment: Speci men Type: BLOOD SPECIMENOrdering Facility: [facility] Address: [address] [place], [place] [address] Performed By: #### 5 7021-8 ####[facility] LABIA [id number] [place] [address] [place] Immature granulocytes (Bld) [#/Vol] 0.07 10*3/uL Normal <0.10 [facility] Comment on above: Order Comment: Speci men Type: BLOOD SPECIMENOrdering Facility: [facility] Address: [address] Performed By: #### 5 7021-8 ####[facility] LABCLIA [id number] [address] [place] Immature granulocytes/100 WBC (Bld) 0.9 % Normal [facility] Comment on above: Order Comment: Speci men Type: BLOOD SPECIMENOrdering Facility: [facility] Address: [address] Performed By: #### 5 7021-8 ####[facility] LABIA [id number] [place] [address] [place] Lymphocytes (Bld) [#/Vol] 1.92 10*3/uL Normal 1.00-4.00 [facility] Comment on above: Order Comment: Speci men Type: BLOOD SPECIMENOrdering Facility: [facility] Address: [address] [place], [place] [address] Performed By: #### 5 7021-8 ####[facility] LABCLIA [id number] [address] [place] Lymphocytes/100 WBC (Bld) 26.0 % Normal [facility] Comment on above: Order Comment: Speci men Type: BLOOD SPECIMENOrdering Facility: [facility] Address: [address] Performed By: #### 5 7021-8 ####[facility] LABIA [id number] [place] [address] [place] MCH (RBC) [Entitic mass] 31.7 pg Normal 26.0-34.0 [facility] Comment on above: Order Comment: Speci men Type: BLOOD SPECIMENOrdering Facility: [facility] Address: [address] [place], [place] [address] Performed By: #### 5 7021-8 ####[facility] LABCLIA [id number] [place] [address] [place] MCHC (RBC) [Mass/Vol] 33.0 g/dL Normal 30.5-36.0 [facility] Comment on above: Order Comment: Speci men Type: BLOOD SPECIMENOrdering Facility: [facility] Address: [address] Performed By: #### 5 7021-8 ####[facility] LABIA [id number] [place] [address] [place] MCV (RBC) [Entitic vol] 96.3 fL Normal 80.0-100.0 [facility] Comment on above: Order Comment: Speci men Type: BLOOD SPECIMENOrdering Facility: [facility] Address: [address] [place], [place] [address] Performed By: #### 5 7021-8 ####[facility] LABIA [id number] [place] [address] [place] Monocytes (Bld) [#/Vol] 0.63 10*3/uL Normal <0.87 [facility] Comment on above: Order Comment: Speci men Type: BLOOD SPECIMENOrdering Facility: [facility] Address: [address] [place] [address] Performed By: #### 5 7021-8 ####[facility] LABIA [id number] [address] [place] Monocytes/100 WBC (Bld) 8.5 % Normal [facility] Comment on above: Order Comment: Speci men Type: BLOOD SPECIMENOrdering Facility: [facility] Address: [address] [place] [address] Performed By: #### 5 7021-8 ####[facility] LABIA [id number] [address] [id number] [address] [place] Neutrophils (Bld) [#/Vol] 4.57 10*3/uL Normal 1.45-7.50 [facility] Comment on above: Order Comment: Speci men Type: BLOOD SPECIMENOrdering Facility: [facility] Address: [address] [place] [address] Performed By: #### 5 7021-8 ####[facility] LABCLIA [id number] [place] [address] [place] Neutrophils/100 WBC (Bld) 62.0 % Normal [facility] Comment on above: Order Comment: Speci men Type: BLOOD SPECIMENOrdering Facility: [facility] Address: [address] [place] [address] Performed By: #### 5 7021-8 ####[facility] LABIA [id number] [place] [address] [place] Nucleated RBC (Bld) [#/Vol] 10*3/uL Normal <0.01 [facility] Comment on above: Order Comment: Speci men Type: BLOOD SPECIMENOrdering Facility: [facility] Address: [address] [place], [place] [address] Performed By: #### 5 7021-8 ####[facility] LABIA [id number] [place] [address] [place] Nucleated RBC/100 WBC (Bld) [Ratio] 0.0 /100 WBC Normal [facility] Comment on above: Order Comment: Speci men Type: BLOOD SPECIMENOrdering Facility: [facility] Address: [address] [place], [place] [address] Performed By: #### 5 7021-8 ####[facility] LABIA [id number] [place] [address] [place] Platelet mean volume (Bld) [Entitic vol] 9.1 fL Normal 9.0-12.7 [facility] Comment on above: Order Comment: Speci men Type: BLOOD SPECIMENOrdering Facility: [facility] Address: [address] [place] [address] Performed By: #### 5 7021-8 ####[facility] LABIA [id number] [place] [address] [place] Platelets (Bld) [#/Vol] 385 10*3/uL Normal 150-400 [facility] Comment on above: Order Comment: Speci men Type: BLOOD SPECIMENOrdering Facility: [facility] Address: [address] [place] [address] Performed By: #### 5 7021-8 ####[facility] LABIA [id number] [place] [address] [place] [facility] RBC (Bld) [#/Vol] 4.60 10*6/uL Normal 3.90-5.20 [facility] Comment on above: Order Comment: Speci men Type: BLOOD SPECIMENOrdering Facility: [facility] Address: [address] [place] [address] Performed By: #### 5 7021-8 ####[facility] [id number] [place] [address] [place] [facility] WBC (Bld) [#/Vol] 7.38 10*3/uL Normal 3.70-11.00 [facility] Comment on above: Order Comment: Speci men Type: BLOOD SPECIMENOrdering Facility: [facility] Address: [address] [place] [address] Performed By: #### 5 7021-8 ####[facility] [id number] [address] [place] CNOVon 05-26-2023 CNOV Office Visit ([facility] ) HUE TITUS ([id number]) 1990 [facility] Date Time Provider Department 05/26/23 1:00 PM [facility] During your visit today, we recorded the following information about you: Temperature Pulse Blood pressure Weight 98.3 degrees 71/minute 122/87 64.4 kg Height 1.702 m Lorrie Vargas MA 05/26/2023 1:23 PM Signed [facility] FACTS Please visit our lab at least 3-5 days before your scheduled appointment to have your lab work drawn, if lab work is ordered. This will allow us the ability to review your lab work results with you during your scheduled visit. [facility]: Lab is open Tuesday - Tuesday from 6:30am to 5pm and open 8am -12pm on Saturdays. [facility]: Tuesday- 7:30am to 5:30pm. Fridays [...] medicine, or pediatrics at any of our [email or web address]] locations and main campus. Ashwini Matute PA-C 05/26/2023 3:00 PM Signed This note was created using [employer]. Mercedes Titus is a 33 year old female. 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 [...] disorder) Ovarian cyst PAF (paroxysmal atrial fibrillation) ([facility]) 07/2022 follows with cardiology Scoliosis SVT, lower extremity ([facility]) 2018 ASA only no anticoagulants Past Surgical [...] 30 tabl (more content not included)... Normal [facility] Comprehensive metabolic 2000 panelon 05-26-2023 Albumin [Mass/Vol] 4.7 g/dL Normal 3.9-4.9 [facility] Comment on above: Order Comment: Speci men Type: BLOOD SPECIMENOrdering Facility: [facility] Address: [address] [place] [address] Performed By: #### 2 4323-8 ####[facility] LABIA [id number] [place] [address] [place] ALP [Catalytic activity/Vol] 92 U/L Normal 34-123 [facility] Comment on above: Order Comment: Speci men Type: BLOOD SPECIMENOrdering Facility: [facility] Address: [address] [place] [address] Performed By: #### 2 4323-8 ####[facility] LABIA [id number] [place] [address] [place] ALT [Catalytic activity/Vol] 17 U/L Normal 7-38 [facility] Comment on above: Order Comment: Speci men Type: BLOOD SPECIMENOrdering Facility: [facility] Address: [address] [address] Performed By: #### 2 4323-8 ####[facility] LABIA [id number] [id number] [address] [place] Anion gap [Moles/Vol] 11 mmol/L Normal 9-18 [facility] Comment on above: Order Comment: Speci men Type: BLOOD SPECIMENOrdering Facility: [facility] Address: [address] Performed By: #### 2 4323-8 ####[facility] LABCLIA [id number] [place] [address] [place] AST [Catalytic activity/Vol] 32 U/L Normal 13-35 [facility] Comment on above: Order Comment: Speci men Type: BLOOD SPECIMENOrdering Facility: [facility] Address: [address] Performed By: #### 2 4323-8 ####[facility] LABCLIA [id number] [place] [address] [place] Bilirubin [Mass/Vol] 0.5 mg/dL Normal 0.2-1.3 [facility] Comment on above: Order Comment: Speci men Type: BLOOD SPECIMENOrdering Facility: [facility] Address: [address] [place], [place] [address] Performed By: #### 2 4323-8 ####[facility] LABCLIA [id number] [place] [address] [place] Calcium [Mass/Vol] 9.6 mg/dL Normal 8.5-10.2 [facility] Comment on above: Order Comment: Speci men Type: BLOOD SPECIMENOrdering Facility: [facility] Address: [address] [place] [address] Performed By: #### 2 4323-8 ####[facility] LABCLIA [id number] [place] [address] [place] Chloride [Moles/Vol] 100 mmol/L Normal 97-105 [facility] Comment on above: Order Comment: Speci men Type: BLOOD SPECIMENOrdering Facility: [facility] Address: [address] [id number] Performed By: #### 2 4323-8 ####[facility] LABCLIA [id number] [place] [address] [place] CO2 [Moles/Vol] 28 mmol/L Normal 22-30 [facility] Comment on above: Order Comment: Speci men Type: BLOOD SPECIMENOrdering Facility: [facility] Address: [address] [place] [address] Performed By: #### 2 4323-8 ####[facility] LABCL[facility] [id number] [place] [address] [place] Creatinine [Mass/Vol] 0.77 mg/dL Normal 0.58-0.96 [facility] Comment on above: Order Comment: Speci men Type: BLOOD SPECIMENOrdering Facility: [facility] Address: [address] [place] [address] Performed By: #### 2 4323-8 ####[facility] LABIA [id number] [address] STATES OF [facility] Creatinine and Glomerular filtration rate.predicted panel (S/P/Bld) 105 mL/min/1.73m??? Normal >=60 [facility] Comment on above: Order Comment: Speci men Type: BLOOD SPECIMENOrdering Facility: [facility] Address: [address] [place] [address] Result Comment: Anabela mated Glomerular Filtration Rate [...] reflect actual GFR. Performed By: #### 2 4323-8 ####[facility] LABCL[facility] [id number] [place] [address] [place] Glucose [Mass/Vol] 72 mg/dL Low 74-99 [facility] Comment on above: Order Comment: Speci men Type: BLOOD SPECIMENOrdering Facility: [facility] Address: [address] [place] [address] Result Comment: The [place] [employer] Association (ADA) provides guidance for cutoff [...] Standards of Medical Care in Diabetes 2016, [place] [employer]. Diabetes Care. 2016.39(Suppl 1). Performed By: #### 2 4323-8 ####[facility] LABCLIA [id number] [place] [address] [place] Potassium [Moles/Vol] 4.3 mmol/L Normal 3.7-5.1 [facility] Comment on above: Order Comment: Speci men Type: BLOOD SPECIMENOrdering Facility: [facility] Address: [address] [place] [address] Performed By: #### 2 4323-8 ####[facility] LABCL[facility] [id number] [place] [address] [place] Protein [Mass/Vol] 8.1 g/dL High 6.3-8.0 [facility] Comment on above: Order Comment: Speci men Type: BLOOD SPECIMENOrdering Facility: [facility] Address: [address] [place] [address] Performed By: #### 2 4323-8 ####[facility] LABCL[facility] [id number] [place] [address] [place] Sodium [Moles/Vol] 139 mmol/L Normal 136-144 [facility] Comment on above: Order Comment: Speci men Type: BLOOD SPECIMENOrdering Facility: [facility] Address: [address] [place] [address] Performed By: #### 2 4323-8 ####[facility]CLIA [id number] [place] [address] [place] Urea nitrogen [Mass/Vol] 14 mg/dL Normal 7-21 [facility] Comment on above: Order Comment: Speci men Type: BLOOD SPECIMENOrdering Facility: [facility] Address: [address] [place] [address] Performed By: #### 2 4323-8 ####[facility] LABIA [id number] [address] [place] TOX SCREEN ROUT URon 023 Amphetamines Confirm (U) [Mass/Vol] Positive Abnormal Negative [facility] Comment on above: Order Comment: Speci men Type: URINE SPECIMENOrdering Facility: [facility] Address: [address] [place] [address] Result Comment: Cuto ff threshold at 1000 ng/mL. Performed By: #### U TOX2 ####[facility]CL[facility] [id number] [place] [address] [place] BARBITURATES, URINE Negative Normal Negative [facility] Comment on above: Order Comment: Speci men Type: URINE SPECIMENOrdering Facility: [facility] Address: [address] [place] [address] Result Comment: Cuto ff threshold at 200 ng/mL. Performed By: #### U TOX2 ####[facility] LABIA [id number] [place] [address] [place] BENZODIAZEPINES, UR Negative Normal Negative [facility] Comment on above: Order Comment: Speci men Type: URINE SPECIMENOrdering Facility: [facility] Address: [address] [address] Result Comment: Cuto ff threshold at 200 ng/mL. Performed By: #### U TOX2 ####[facility]CL[facility] [id number] [place] [address] [place] Cannabinoids Screen Ql (U) Negative Normal Negative [facility] Comment on above: Order Comment: Speci men Type: URINE SPECIMENOrdering Facility: [facility] Address: [address] [place] [address] Result Comment: Cuto ff threshold at 50 ng/mL. Performed By: #### U TOX2 ####[facility]CL[facility] [id number] [place] [address] [place] Cocaine Ql (U) Negative Normal Negative [facility] Comment on above: Order Comment: Speci men Type: URINE SPECIMENOrdering Facility: [facility] Address: [address] [place] [address] Result Comment: Cuto ff threshold at 300 ng/mL. Performed By: #### U TOX2 ####[facility] LABCL[facility] [id number] [place] [address] [place] Ethanol (U) [Mass/Vol] 84 mg/dL High <11 Cl [facility] Comment on above: Order Comment: Speci men Type: URINE SPECIMENOrdering Facility: [facility] Address: [address] [place] [address] Performed By: #### U TOX2 ####[facility] LABCL[facility] [id number] [place] [address] [place] Opiates Screen Ql (U) Positive Abnormal Negative [facility] Comment on above: Order Comment: Speci men Type: URINE SPECIMENOrdering Facility: [facility] Address: [address] [place] [address] Result Comment: Cuto ff threshold at 300 ng/mL. Performed By: #### U TOX2 ####[facility] LABCLIA [id number] [id number] [address] [place] oxyCODONE cutoff Screen (U) [Mass/Vol] Negative Normal Negative [facility] Comment on above: Order Comment: Speci men Type: URINE SPECIMENOrdering Facility: [facility] Address: [address] [place] [address] Result Comment: Cuto ff threshold at 100 ng/mL. Performed By: #### U TOX2 ####[facility] LABCLIA [id number] [address] Phencyclidine Ql (U) Negative Normal Negative [facility] Comment on above: Order Comment: Speci men Type: URINE SPECIMENOrdering Facility: [facility] Address: [address] [place] [address] Result Comment: Cuto ff threshold at 25 ng/mL. Performed By: #### U TOX2 ####[facility]CLIA [id number] [address] L-Spine Post Myelogramon 03-14-2023 CT Lumbar spine WO and W contrast IV Please click on the link to view the study images Normal [facility] [place] [address] DO Work Phone: CT Lumbar spine WO and W contrast IV Normal [facility] Work Phone: CT Lumbar spineon 03-14-2023 Radiology Study observation (narrative) [facility] Work Phone: NR CT L-SPINE POST MYELOGRAM on 03-14-[address] L-SPINE POST MYELOGRAM Patient Name: HUE TITUS STUDY: MYELOGRAPHY, LUMBOSACRAL WITH LUMBAR PUNCTURE; CT L-SPINE [facility]; 03/14/2023 12:59 pm; 03/14/2023 1:10 pm INDICATION: right lumbar radiculopathy. History of scoliosis s/p thoracolumbar fusion M54.16: Lumbar radiculopathy, right; right lumbar radiculopathy. History of scoliosis s/p thoracolumbar fusion M54.50: Lumbar pain M54.16: Lumbar radiculopathy, right. COMPARISON: Radiographs of the lumbosacral spine dated 02/10/2023. ACCESSION NUMBER(S): [id number]; [id number] ORDERING CLINICIAN: TERRIE BROWN TECHNIQUE: After discussion [...] foramina. L5-S1: Spinal canal is patent. Mild vota-vhrcojr-qgfu-rig ht foraminal stenosis secondary to facet hypertrophy [...] headache persists, (more content not included)... Normal [facility] NR MYELO, LUMBOSACRAL WITH L UMBAR PUNCTUREon 03-14-2023 NR MYELO, LUMBOSACRAL WITH LUMBAR PUNCTURE Patient Name: HUE TITUS STUDY: MYELOGRAPHY, LUMBOSACRAL WITH LUMBAR PUNCTURE; CT L-SPINE [facility]; 03/14/2023 12:59 pm; 03/14/2023 1:10 pm INDICATION: right lumbar radiculopathy. History of scoliosis s/p thoracolumbar fusion M54.16: Lumbar radiculopathy, right; right lumbar radiculopathy. History of scoliosis s/p thoracolumbar fusion M54.50: Lumbar pain M54.16: Lumbar radiculopathy, right. COMPARISON: Radiographs of the lumbosacral spine dated 02/10/2023. ACCESSION NUMBER(S): [id number]; [id number] ORDERING CLINICIAN: TERRIE BROWN TECHNIQUE: After discussion [...] foramina. L5-S1: Spinal canal is patent. Mild bevc-ayeldke-tvqe-rig ht foraminal stenosis secondary to facet hypertrophy [...] headache persists, (more content not included)... Normal [facility] No Panel Informationon 03-14 Technically [...] This study was performed and interpreted at [facility]. I agree with the procedural description and the findings as stated. [facility] Interpreted By: DINA DENNIS MD and FER GENTILE MD Patient Name: HUE TITUS STUDY: MYELOGRAPHY, LUMBOSACRAL WITH LUMBAR PUNCTURE; CT L-SPINE [facility]; 03/14/2023 12:59 pm; 03/14/2023 1:10 pm INDICATION: right lumbar radiculopathy. History of scoliosis s/p thoracolumbar fusion M54.16: Lumbar radiculopathy, right; right lumbar radiculopathy. History of scoliosis s/p thoracolumbar fusion M54.50: Lumbar pain M54.16: Lumbar radiculopathy, right. COMPARISON: Radiographs of the lumbosacral spine dated 02/10/2023. ACCESSION NUMBER(S): [id number]; [id number] ORDERING CLINICIAN: TERRIE BROWN TECHNIQUE: After discussion [...] foramina. L5-S1: Spinal canal is patent. Mild dddh-lugcdwb-ydpx-rig ht foraminal stenosis secondary to facet hypertrophy [...] procedure. Incidental: IUD visualized in the uterus. [facility] Dina Dennis MD - 03/14/2023 Interpreted By: DINA DENNIS MD and FER GENTILE MD Patient Name: HUE TITUS STUDY: MYELOGRAPHY, LUMBOSACRAL WITH LUMBAR PUNCTURE; CT L-SPINE [facility]; 03/14/2023 12:59 pm; 03/14/2023 1:10 pm INDICATION: right lumbar radiculopathy. History of scoliosis s/p thoracolumbar fusion M54.16: Lumbar radiculopathy, right; right lumbar radiculopathy. History of scoliosis s/p thoracolumbar fusion M54.50: Lumbar pain M54.16: Lumbar radiculopathy, right. COMPARISON: Radiographs of the lumbosacral spine dated 02/10/2023. ACCESSION NUMBER(S): [id number]; [id number] ORDERING CLINICIAN: TERRIE BROWN TECHNIQUE: After discussion [...] foramina. L5-S1: Spinal canal is patent. Mild lenm-hdijxln-ucca-rig ht foraminal stenosis secondary to facet hypertrophy [...] and along th (more content not included)... [facility] Work Phone: Please click on the link to view the study images Normal [facility] [place] [address] DO Work Phone: Normal [facility] Work Phone: No Panel InformationOrdered By: Dina Dennis on 03-14-2023 [facility] Work Phone: RF Guidance for injection of Lumbar spineon 03-14-2023 Radiology Study observation (narrative) [facility] Work Phone: CBCon 03-12-2023 Erythrocyte distribution width (RBC) [Ratio] 13.9 % Normal 11.5 - 14.5 [facility] Comment on above: Performed By: #### C BC #### [address] [id number] Hematocrit (Bld) [Volume fraction] 39.3 % Normal 36.0 - 46.0 [facility] Comment on above: Performed By: #### C BC #### [address] [id number] Hemoglobin (Bld) [Mass/Vol] 12.8 g/dL Normal 12.0 - 16.0 [facility] Comment on above: Performed By: #### C BC #### [address] [id number] MCHC (RBC) [Mass/Vol] 32.6 g/dL Normal 32.0 - 36.0 [facility] Comment on above: Performed By: #### C BC #### [address] [id number] MCV (RBC) [Entitic vol] 96 fL Normal 80 - 100 [facility] Comment on above: Performed By: #### C BC #### [address] [id number] Platelets (Bld) [#/Vol] 335 10*3/uL Normal 150 - 450 [facility] Comment on above: Performed By: #### C BC #### [address] [id number] RBC 4.11 x10E12/L Normal 4.00 - 5.20 [facility] Comment on above: Performed By: #### C BC #### [address] [id number] WBC (Bld) [#/Vol] 13.6 10*3/uL High 4.4 - 11.3 [facility] Comment on above: Performed By: #### C BC #### [address] [id number] Laboratory - Coagulationon 0 03-12-2023 INR Coag (PPP) [Relative time] 1.0 {INR} 0.9 - 1.1 [facility] [place] [address] DO Work Phone: PT Coag (PPP) [Time] 11.1 s 9.8 - 12.8 [facility] [place] 10[address] DO Work Phone: Comment on above: Note new reference kaylee jj as of 02/22/2023 at 10:00am. Laboratory - Hematology and Cell countson 03-12-2023 Erythrocyte distribution width (RBC) [Ratio] 13.9 % See Below [facility] [place] [address] DO Work Phone: Comment on above: Reference Range: 11. 5 - 14.5 Hematocrit (Bld) [Volume fraction] 39.3 % See Below [facility] [place] 10[address] DO Work Phone: Comment on above: Reference Range: 36. 0 - 46.0 Hemoglobin (Bld) [Mass/Vol] 12.8 g/dL See Below [facility] [place] [address] DO Work Phone: Comment on above: Reference Range: 12. 0 - 16.0 MCHC (RBC) [Mass/Vol] 32.6 g/dL See Below [facility] [place] 1099 DO Work Phone: Comment on above: Reference Range: 32. 0 - 36.0 MCV (RBC) [Entitic vol] 96 fL 80 - 100 [facility] [place] 1099 DO Work Phone: Platelets (Bld) [#/Vol] 335 10*3/uL 150 - 450 [facility] [place] 1099 DO Work Phone: RBC (Bld) [#/Vol] 4.11 {x10E12/L} See Below [facility] [place] [address]99 DO Work Phone: Comment on above: Reference Range: 4.0 0 - 5.20 WBC (Bld) [#/Vol] 13.6 10*3/uL above high threshold 4.4 - 11.3 [facility] [place] [address] DO Work Phone: PT/INRon 03-12-2023 PT Coag (PPP) [Time] 11.1 s Normal 9.8 - 12.8 [facility] Comment on above: Result Comment: Note new reference range as of 02/22/2023 at 10:00am. Performed By: #### P TINR #### [address] [id number] PT, INR 1.0 Normal 0.9 - 1.1 [facility] Comment on above: Performed By: #### P TINR #### [address] [id number] CNOVon 03-03-2023 CNOV [facility] Visit [facility] ) HUE TITUS ([id number]) 1990 F CHT Date Time Provider Department 03/03/23 11:30 AM ARIA IZQUIERDO [facility] During your visit today, we recorded the [...] 02/13/2023 (approximate). Informed Consent Consent Obtained: Written [place] Protocol A moment to CARE was completed. [...] Aria Izquierdo PA-C Referring Provider: ARIA IZQUIERDO [[id number]] Allergies As of Date: 03/03/2023 (No Known Allergies) Date Reviewed: 03/03/2023 Reviewed by: Aria Izquierdo PA-C - Fully Assessed Reason for Visit: Insertion Of IUD [291] Primary Visit Diagnosis:Encounter for IUD insertion [Z30.430] Order(s):HCG QUAL UR B/O [5911181] Order #: [id number] [] levonorgestrel 21 mcg/24 hours (8 yrs) 52 mg 1 Each intrauterine device (MIRENA)Disp: Rfl: IUD INSERTION [PRO92] Order #: [id number] Prescriptions as of 03/18/2023 - pregabalin (LYRICA) [...] Route: I (more content not included)... Normal [facility] CNOVon 02-22-2023 CNOV Office Visit ([facility] ) HUE TITUS ([id number]) 1990 F CHT Date Time Provider Department 02/22/23 2:00 PM [facility] During your visit today, we recorded the following information about you: Pulse Blood pressure Weight Height 90/minute 110/79 56.2 kg 1.702 m Ashwini Matute PA-C 02/22/2023 3:32 PM Signed This note was created using [employer]. Subjective Hue Titus is a 32 year [...] pain. She has started seeing a new equal opportunity specialist at . Past Medical History: PAST MEDICAL HISTORY Diagnosis Date ADHD (attention deficit hyperactivity disorder) Ovarian cyst PAF (paroxysmal atrial fibrillation) ([facility]) 07/2022 follows with cardiology Scoliosis SVT, lower extremity ([facility]) 2018 ASA only no anticoagulants Past Surgical [...] no longer seeing her previous PCP in [place]. 3. Vitamin D deficiency - ICD9: 268.9, ICD10: E55.9 Start high dose vitamin D once weekly. Rx sent in. RICHIE Velasco (more content not included)... Normal [facility] 25(OH)D3 [facility] 2022 25-hydroxyvitamin D3 [Mass/Vol] 24.8 ng/mL Low 31.0-80.0 [facility] Comment on above: Order Comment: Dada arenas Type: BLOOD SPECIMENOrdering Facility: [facility] Address: [address] [place] [address] Result Comment: Clas sification of 25 [place] Vitamin D status: Deficiency/Insufficiency: < or = 30 ng/ml. Sufficiency/Optimal Levels: 31-80 ng/mL Toxicity: > 100 ng/mL. Test performed by chemiluminescent immunoassay. Performed By: #### 1 989-3 ####[facility] LABCL[facility] [id number] [place] [address] [place] CBC W Auto Differential pane l (Bld)on 02-15-2023 Basophils (Bld) [#/Vol] 0.04 10*3/uL Normal <0.11 [facility] Comment on above: Order Comment: Dada arenas Type: BLOOD SPECIMENOrdering Facility: [facility] Address: [address] Performed By: #### 5 7021-8 ####[facility] LABCLIA [id number] [address] STATES [facility] Basophils/100 WBC (Bld) 0.5 % Normal [facility] Comment on above: Order Comment: Speci men Type: BLOOD SPECIMENOrdering Facility: [facility] Address: [address] Performed By: #### 5 7021-8 ####[facility]CL[facility] [id number] [address] Differential cell count method Nom (Bld) Auto Normal [facility] Comment on above: Order Comment: Speci men Type: BLOOD SPECIMENOrdering Facility: [facility] Address: [address] [place], [place] [address] Performed By: #### 5 7021-8 ####[facility] LABCL[facility] [id number] [place] [address] [place] Eosinophils (Bld) [#/Vol] 0.12 10*3/uL Normal <0.46 [facility] Comment on above: Order Comment: Speci men Type: BLOOD SPECIMENOrdering Facility: [facility] Address: [address] [place], [place] [address] Performed By: #### 5 7021-8 ####[facility]CL[facility] [id number] [address] STATES [facility] Eosinophils/100 WBC (Bld) 1.6 % Normal [facility] Comment on above: Order Comment: Speci men Type: BLOOD SPECIMENOrdering Facility: [facility] Address: [address] [place], [place] [address] Performed By: #### 5 7021-8 ####[facility] LABCL[facility] [id number] [place] [address] [place] Erythrocyte distribution width (RBC) [Ratio] 13.7 % Normal 11.5-15.0 [facility] Comment on above: Order Comment: Speci men Type: BLOOD SPECIMENOrdering Facility: [facility] Address: [address] [place] [address] Performed By: #### 5 7021-8 ####[facility] LABCL[facility] [id number] [place] [address] [place] Hematocrit (Bld) [Volume fraction] 38.1 % Normal 36.0-46.0 [facility] Comment on above: Order Comment: Speci men Type: BLOOD SPECIMENOrdering Facility: [facility] Address: [address] [place] [address] Performed By: #### 5 7021-8 ####[facility]CL[facility] [id number] [address] [place] Hemoglobin (Bld) [Mass/Vol] 12.7 g/dL Normal 11.5-15.5 [facility] Comment on above: Order Comment: Speci men Type: BLOOD SPECIMENOrdering Facility: [facility] Address: [address] [place], [place] [address] Performed By: #### 5 7021-8 ####[facility] LABIA [id number] [place] [address] [place] Immature granulocytes (Bld) [#/Vol] 0.09 10*3/uL Normal <0.10 [facility] Comment on above: Order Comment: Speci men Type: BLOOD SPECIMENOrdering Facility: [facility] Address: [address] [place], [place] [address] Performed By: #### 5 7021-8 ####[facility] LABCL[facility] [id number] [address] [place] Immature granulocytes/100 WBC (Bld) 1.2 % Normal [facility] Comment on above: Order Comment: Speci men Type: BLOOD SPECIMENOrdering Facility: [facility] Address: [address] Performed By: #### 5 7021-8 ####[facility]CL[facility] [id number] [address] [place] Lymphocytes (Bld) [#/Vol] 2.77 10*3/uL Normal 1.00-4.00 [facility] Comment on above: Order Comment: Speci men Type: BLOOD SPECIMENOrdering Facility: [facility] Address: [address] Performed By: #### 5 7021-8 ####[facility]CL[facility] [id number] [place] [address] [place] Lymphocytes/100 WBC (Bld) 37.6 % Normal [facility] Comment on above: Order Comment: Speci men Type: BLOOD SPECIMENOrdering Facility: [facility] Address: [address] Performed By: #### 5 7021-8 ####[facility]CL[facility] [id number] [place] [address] [place] MCH (RBC) [Entitic mass] 30.2 pg Normal 26.0-34.0 [facility] Comment on above: Order Comment: Speci men Type: BLOOD SPECIMENOrdering Facility: [facility] Address: [address] Performed By: #### 5 7021-8 ####[facility] [id number] [place] [address] [place] MCHC (RBC) [Mass/Vol] 33.3 g/dL Normal 30.5-36.0 [facility] Comment on above: Order Comment: Speci men Type: BLOOD SPECIMENOrdering Facility: [facility] Address: [address] Performed By: #### 5 7021-8 ####[facility] [id number] [place] [address] [place] MCV (RBC) [Entitic vol] 90.7 fL Normal 80.0-100.0 [facility] Comment on above: Order Comment: Speci men Type: BLOOD SPECIMENOrdering Facility: [facility] Address: [address] [place] [address] Performed By: #### 5 7021-8 ####[facility] [id number] [place] [address] [place] Monocytes (Bld) [#/Vol] 0.80 10*3/uL Normal <0.87 [facility] Comment on above: Order Comment: Speci men Type: BLOOD SPECIMENOrdering Facility: [facility] Address: [address] [place] [address] Performed By: #### 5 7021-8 ####[facility] LAB[facility] [id number] [place] [address] [place] Monocytes/100 WBC (Bld) 10.9 % Normal [facility] Comment on above: Order Comment: Speci men Type: BLOOD SPECIMENOrdering Facility: [facility] Address: [address] [place], [place] [address] Performed By: #### 5 7021-8 ####[facility] LAB[facility] [id number] [place] [address] [place] Neutrophils (Bld) [#/Vol] 3.55 10*3/uL Normal 1.45-7.50 [facility] Comment on above: Order Comment: Speci men Type: BLOOD SPECIMENOrdering Facility: [facility] Address: [address] [place], [place] [address] Performed By: #### 5 7021-8 ####[facility]CL[facility] [id number] [place] [address] [place] Neutrophils/100 WBC (Bld) 48.2 % Normal [facility] Comment on above: Order Comment: Speci men Type: BLOOD SPECIMENOrdering Facility: [facility] Address: [address] Performed By: #### 5 7021-8 ####[facility] [id number] [place] [address] [place] Nucleated RBC (Bld) [#/Vol] 10*3/uL Normal <0.01 [facility] [facility] Comment on above: Order Comment: Speci men Type: BLOOD SPECIMENOrdering Facility: [facility] Address: [address] Performed By: #### 5 7021-8 ####[facility] LABIA [id number] [place] [address] [place] Nucleated RBC/100 WBC (Bld) [Ratio] 0.0 /100 WBC Normal [facility] Comment on above: Order Comment: Speci men Type: BLOOD SPECIMENOrdering Facility: [facility] Address: [address] Performed By: #### 5 7021-8 ####[facility] [id number] [place] [address] [place] Platelet mean volume (Bld) [Entitic vol] 9.4 fL Normal 9.0-12.7 [facility] Comment on above: Order Comment: Speci men Type: BLOOD SPECIMENOrdering Facility: [facility] Address: [address] [place] [address] Performed By: #### 5 7021-8 ####[facility] [id number] [place] [address] [place] Platelets (Bld) [#/Vol] 493 10*3/uL High 150-400 [facility] Comment on above: Order Comment: Speci men Type: BLOOD SPECIMENOrdering Facility: [facility] Address: [address] [place] [address] Performed By: #### 5 7021-8 ####[facility] LABCLIA [id number] [address] RBC (Bld) [#/Vol] 4.20 10*6/uL Normal 3.90-5.20 [facility] Comment on above: Order Comment: Speci men Type: BLOOD SPECIMENOrdering Facility: [facility] Address: [address] [place] [address] Performed By: #### 5 7021-8 ####[facility] [id number] [address] WBC (Bld) [#/Vol] 7.37 10*3/uL Normal 3.70-11.00 [facility] Comment on above: Order Comment: Speci men Type: BLOOD SPECIMENOrdering Facility: [facility] Address: [address] [place], [place] [address] Performed By: #### 5 7021-8 ####[facility] [id number] [place] [address] [place] Comprehensive metabolic 2000 panelon 02-15-2023 Albumin [Mass/Vol] 4.4 g/dL Normal 3.9-4.9 [facility] Comment on above: Order Comment: Speci men Type: BLOOD SPECIMENOrdering Facility: [facility] Address: [address] [place] [address] Performed By: #### 3 016-3, 2132-05, ####[facility] [id number] [place] [id number] [place] [facility] ALP [Catalytic activity/Vol] 89 U/L Normal 34-123 [facility] Comment on above: Order Comment: Speci men Type: BLOOD SPECIMENOrdering Facility: [facility] Address: [address] [place] [address] Performed By: #### 3 016-3, 2132-05, ####[facility] LABCLIA [id number] [facility] [place] [address] [place] ALT [Catalytic activity/Vol] 13 U/L Normal 7-38 [facility] Comment on above: Order Comment: Speci men Type: BLOOD SPECIMENOrdering Facility: [facility] Address: [address] [place] [address] Performed By: #### 3 016-3, 2132-05, ####[facility] LABCLIA [id number] [place] [address] [place] Anion gap [Moles/Vol] 12 mmol/L Normal 9-18 [facility] Comment on above: Order Comment: Speci men Type: BLOOD SPECIMENOrdering Facility: [facility] Address: [address] [place] [address] Performed By: #### 3 3, 2132-05, ####[facility] LABCLIA [id number] [place] [address] [place] AST [Catalytic activity/Vol] 24 U/L Normal 13-35 [facility] Comment on above: Order Comment: Speci men Type: BLOOD SPECIMENOrdering Facility: [facility] Address: [address] [place] [address] Performed By: #### 3 016-3, 2132-05, ####[facility] LABCL[facility] [id number] [place] [address] [place] Bilirubin [Mass/Vol] 0.3 mg/dL Normal 0.2-1.3 [facility] Comment on above: Order Comment: Speci men Type: BLOOD SPECIMENOrdering Facility: [facility] Address: [address] [place] [address] Performed By: #### 3 016-3, 2132-05, ####[facility] LABCLIA [id number] [place] [address] [place] Calcium [Mass/Vol] 10.5 mg/dL High 8.5-10.2 [facility] Comment on above: Order Comment: Speci men Type: BLOOD SPECIMENOrdering Facility: [facility] Address: [address] [place] [address] Performed By: #### 3 016-3, 2132-05, ####[facility] LABCLIA [id number] [place] [address] [place] Chloride [Moles/Vol] 102 mmol/L Normal 97-105 [facility] Comment on above: Order Comment: Speci men Type: BLOOD SPECIMENOrdering Facility: [facility] Address: [address] [place] [address] Performed By: #### 3 016-3, 2132-05, ####[facility] LABCL[facility] [id number] [place] [address] [place] CO2 [Moles/Vol] 25 mmol/L Normal 22-30 [facility] Comment on above: Order Comment: Speci men Type: BLOOD SPECIMENOrdering Facility: [facility] Address: [address] [place] [address] Performed By: #### 3 016-3, 2132-05, ####[facility] LABCLIA [id number] [place] [address] [place] Creatinine [Mass/Vol] 0.77 mg/dL Normal 0.58-0.96 [facility] Comment on above: Order Comment: Speci men Type: BLOOD SPECIMENOrdering Facility: [facility] Address: [address] [place], [place] [address] Performed By: #### 3 016-3, 2132-05, ####[facility] LABCLIA [id number] [place] [address] [place] ESTIMATED GLOMERULAR FILTRATION RATE 106 mL/min/1.73m??? Normal >=60 [facility] Comment on above: Order Comment: Dada arenas Type: BLOOD SPECIMENOrdering Facility: [facility] Address: [place] [address] Result Comment: Anabela mated Glomerular Filtration Rate [...] reflect actual GFR. Performed By: #### 3 016-3, 2132-05, ####[facility] [id number] [place] [id number] [place] Glucose [Mass/Vol] 98 mg/dL Normal 74-99 [facility] Comment on above: Order Comment: Dada arenas Type: BLOOD SPECIMENOrdering Facility: [facility] Address: [address] [place] [address] Result Comment: The [place] Diabetes Association (ADA) provides guidance for cutoff [...] Standards of Medical Care in Diabetes 2016, [place] Diabetes Association. Diabetes Care. 2016.39(Suppl 1). Performed By: #### 3 016-3, 2132-05, ####[facility] [id number] [address] [address] [place] Potassium [Moles/Vol] 4.4 mmol/L Normal 3.7-5.1 [facility] Comment on above: Order Comment: Speci men Type: BLOOD SPECIMENOrdering Facility: [facility] Address: [address] Performed By: #### 3 016-3, 2132-05, ####[facility]CL[facility] [id number] [place] [address] [place] Protein [Mass/Vol] 7.9 g/dL Normal 6.3-8.0 [facility] Comment on above: Order Comment: Speci men Type: BLOOD SPECIMENOrdering Facility: [facility] Address: [address] Performed By: #### 3 016-3, 2132-05, ####[facility] LABCLIA [id number] [place] [address] [place] Sodium [Moles/Vol] 139 mmol/L Normal 136-144 [facility] Comment on above: Order Comment: Speci men Type: BLOOD SPECIMENOrdering Facility: [facility] Address: [address] [place], [place] [address] Performed By: #### 3 016-3, 2132-05, ####[facility] LABCL[facility] [id number] [place] [address] [place] Urea nitrogen [Mass/Vol] 16 mg/dL Normal 7-21 [facility] Comment on above: Order Comment: Speci men Type: BLOOD SPECIMENOrdering Facility: [facility] Address: [address] Performed By: #### 3 016-3, 2132-05, ####[facility] LABCLIA [id number] [place] [address] [place] TSH SerPl-aCncon 02-15-2023 TSH Qn 1.760 m[IU]/L Normal 0.270-4.200 [facility] Comment on above: Order Comment: Speci men Type: BLOOD SPECIMENOrdering Facility: [facility] Address: [address] [place] [address] Result Comment: If t he patient is , TSH reference range varies by gestational period: First Trimester (weeks 9-12): 0.180-2.990 mIU/L Second Trimester: 0.110-3.980 mIU/L Third Trimester: 0.480-4.710 mIU/L Pedro Lim et al. A Practical Approach for the Verifications and Determination of Site- and Trimester-Specific Reference Intervals for Thyroid Function tests in . Thyroid, 2019:29:3:412-420. Jam E, et al. 2017 Guidelines of the [place] Thyroid Association for the Diagnosis and Management of Thyroid Disease during and the . Thyroid, 2017:27:3:315-389. Performed By: #### 3 016-3, 2132-05, 22468-5 ####[facility] [id number] [place] [address] [place] Vit B12 [facility] 13-2 023 Cobalamin (Vitamin B12) [Mass/Vol] 1090 pg/mL Normal 232-1245 [facility] Comment on above: Order Comment: Dada arenas Type: BLOOD SPECIMENOrdering Facility: [facility] Address: [address] [place] [address] Performed By: #### 3 016-3, 2132-05, ####[facility] [id number] [place] [id number] [place] Established Visit (Orthopaed ic Surgery)on 02-10-2023 Established Visit (Orthopaedic Surgery) Diagnoses/Problems Assessed Lumbar radiculopathy, right (724.4) (M54.16) Lumbar pain (724.2) (M54.50) Orders Lumbar pain, Lumbar radiculopathy, right CT L-Spine Post Myelogram; Status:Active; Requested for:[id number]; Patient taking Metformin or Derivatives? : No Radiologist to Determine Optimal Study : Y What are the patient's signs and symptoms? : right lumbar radiculopathy. History of scoliosis s/p thoracolumbar fusion Lumbar radiculopathy, right Xray Myelography Lumbosacral with LP; Status:Active; Requested for:[id number]; Radiologist to Determine Optimal Study : Y [...] Oral Tablet Vitamin D (Ergocalciferol) 1.25 MG (04710 UT) Oral Capsule Signatures Electronically signed by : Terrie Brown MD; Mar 11 2023 5:08PM EST (Author) Normal [facility] Initial Visit (Orthopaedic S urgery)on 02-10-2023 Initial [...] it at that time and then around 2018 in 2019 while living in [place] she was seeing pain management who tried caudal injections which did not help. She is also tried multiple medications such as Cymbalta and Lyrica without any relief. She was started on gabapentin which initially did provide relief of her leg pain but now she still has a lot of foot pain. She describes as a burning sensation. She then since moved back to [place] and has been seeing physicians at [facility]. Most of her care is done at [facility]. She was seeing pain management with [...] taking yet. 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 She does not smoke occasionally drinks alcohol [...] easy bruis (more content not included)... Normal [facility] No Panel Informationon 02-10 Normal [facility]thopa[facility] [employer] Work Phone: SPINE, LUMBOSACRAL; MIN 4 EWSon 02-10-2023 SPINE, LUMBOSACRAL; MIN 4 VIEWS Patient Name: VICTORINADENVERMarlin HUE STUDY: SPINE, LUMBOSACRAL MIN 4 VIEWS; 02/10/2023 1:48 pm INDICATION: LUMBAR PAIN M54.50: Lumbar pain. COMPARISON: None. ACCESSION NUMBER(S): [id number] ORDERING CLINICIAN: TERRIE BROWN FINDINGS: Lumbar spine, [...] L5-S1 Electronically signed by: JACQUELINE GLORIA MD [facility] CNOVon 02-08-2023 CNOV Office Visit ([facility] ) HUE TITUS ([id number]) 1990 F T Date Time Provider Department 02/08/23 3:20 PM RLARTURO CHITRA HARRISONTAIWO During your visit today, we recorded the [...] spine ordered - has not yet called [facility] to schedule. She's concerned if something may [...] - XR THORACIC GENERAL 3V AP/LAT/SWIMMERS LEA Olivarez-C Allergies As of Date: 02/08/2023 (No Known Allergies) Date Reviewed: 02/08/2023 Reviewed by: Bert White MA - Fully Assessed Reason for Visit: Back Pain [Other] Cmt: Started last Tuesday. Right side below shoulder blade. Hurts to lift arm. Hurts to breathe. Concerned with spine due to Scoliosis Primary Visit Diagnosis:Upper back pain on right side [M54.9] Order(s):XR SCAPULA 2V AP/LAT RIGHT [[id number]] Order #: [id number] FUTURE XR THORACIC GENERAL 3V AP/LAT/SWIMMERS [[id number]] Order #: [id number] FUTURE Prescriptions as of 02/08/2023 - dextroamphetamine-amp [...] [I48.0] 09/27/2022 (more content not included)... Normal [facility] No Panel Informationon 02-08 [facility] XR SCAPULA 2V AP/LAT RTon XR [...] definite scapular fracture. IMPRESSION: Please see result. Egg Gatherer: PSCB Transcribe Date/Time: Feb 08 2023 4:22P Dictated by : ASHLEY MIRANDA MD This examination was interpreted and the report reviewed and electronically signed by: ASHLEY MIRANDA MD on Feb 08 2023 4:23PM EST [id number] Normal [facility] XR THORACIC 3V AP/LAT/SWIMME RSon 02-08-2023 [...] definite scapular fracture. IMPRESSION: Please see result. Egg Gatherer: PSCB Transcribe Date/Time: Feb 08 2023 4:22P Dictated by : ASHLEY MIRANDA MD This examination was interpreted and the report reviewed and electronically signed by: ASHLEY MIRANDA MD on Feb 08 2023 4:23PM EST [id number] Normal [facility] CNOVon 02-04-2023 CNOV Office Visit (IN[facility] ) HUE TITUS ([id number]) 1990 F T Date Time Provider Department 02/04/23 11:00 AM CHITRA BURNETT INTAIWO During your visit today, we recorded the [...] yet. 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 She's currently followed by Dr Dennis for pain management and Spine. She reports Dr Dennis told her there's nothing additional he can do for her so she didn't think she would need to follow up. She had a CT Myelogram ordered by [facility] Spine - but it was scheduled in [place] as a traditional CT so it was [...] the Rx since she now lives in [place] Review of Systems All other systems reviewed [...] PCP out of state. Pt will call [facility] CT scheduling to set up the CT [...] Encounter Prescripti (more content not included)... Normal [facility] CNOVon 02-03-2023 CNOV [facility] HUE TITUS ([id number]) 1990 F CHT Date Time Provider Department 02/03/23 3:00 PM ARIA IZQUIERDO [facility] During your visit today, we recorded the [...] disorder) Ovarian cyst PAF (paroxysmal atrial fibrillation) ([facility]) 07/2022 follows with cardiology Scoliosis SVT, lower extremity ([facility]) 2018 ASA only no anticoagulants PAST SURGICAL [...] the second pill 8-10 hours prior to QUENCHER OPERATOR appt for cervical dilation. metoprolol tartrate, short [...] of this record were documented by the Solar Installation Technician. I, Aria Izquierdo, have reviewed this information as documented for accuracy and performed all elements of history taking, and edited the record as necessary. ROS: SEE HPI PE: GENERAL: well-appearing, in no acute distress LUNGS: Normal inspiratory effort QUENCHER OPERATOR: deferred NEURO: Awake, alert and oriented A/P: [...] the date of the service which included [id number] patient care, completing clinical documentation, counseling and educating the patient/family/caregi hussain, and ordering medications, tests, or procedures. Referring Provider: ASHWINI MATUTE [[id number]] Allergies As of Date: 02/03/2023 (No Known Allergies) Date Reviewed: 02/03/2023 Reviewed by: Aria Izquierdo PA-C - Fully Assessed Reason for Visit: Well Woman [1463] Visit Diagnosis:Counseling for control regarding intrauterine device (IUD) [Z30.09] Order(s):CONSULT TO RENTAL SALES AGENT [9021] Order #: [id number]: 1 miSOPROStol (CYTOTEC) 200 mcg tablet1 tablet as directed. Take by mouth 2 days prior to appt, and the second pill 8-10 hours prior to QUENCHER OPERATOR appt for cervical dilation.Disp: 2 tabletRfl: 0 INSERT INTRAUTERINE DEVICE [[id number]] Order #: [id number] Prescriptions as of 02/03/2023 - miSOPROStol (CYTOTEC) 200 mcg tablet 1 tablet as directed. 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 - dextroamphetamine-amp hetamine [...] as of (more content not included)... Normal [facility] CNOVon 01-11-2023 CNOV Office Visit (KEANU ) VICTORINAHUE COTTO ([id number]) 1990 F T Date Time Provider Department 01/11/23 2:00 PM ASHWINI MATUTE During your visit today, we recorded the following information about you: Pulse Blood pressure Weight Height 63/minute 124/80 54 kg 1.702 m Last Period 12/12/22 Ashwini Matute PA-C 01/13/2023 2:09 PM Signed This note was created using Solar Junction[employer]. Subjective Hue Titus is a 32 year old female. SHANNA Titus is a 32 year old female who presents today to establish care as a new patient. She has a history of juvenile scoliosis and is currently being treated by both equal opportunity specialist and pain management. She is on both gabapentin and lyrica for her chronic back pain and recently failed an attempted spinal cord stimulator procedure. She is awaiting additional CT imaging to determine next course of treatment. 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 She recently moved back to the area after living in [place] for over 5 yrs. She complains of [...] (attention deficit hyperactivity disorder) DVT, lower extremity ([facility]) 2018 PAF (paroxysmal atrial fibrillation) ([facility]) 07/2022 follows with cardiology Scoliosis Past Surgical [...] Gastrointestinal: Nega (more content not included)... Normal [facility] CNPNon 01-11-2023 CNPN Telephone (PSCSTR) HUE TITUS ([id number]) 1990 F T Date Time Provider Department 01/11/23 YUE DAHL PSCSTR During your visit today, we recorded the following information about you: SALUD Reeves 01/11/2023 3:27 PM Signed Behavioral Health Social Work Progress Note Patient identified for [facility] from: PCP Reason for referral: Resources Behavioral Health Resources: Psychology - talk therapy [facility] encounter type: Telephone Encounter, [employer] Message Attempts to Outreach: 1 attempt Referral made: Psychology - External Psychology-External referral type: Therapy Reason for external referral: Patient seeking buttermaker helper support Final Disposition: Resources given Patient Discharged?: Yes Patient reported that caregiver was able to meet their needs today?: Yes [facility] consult received for anxiety and depression. [facility] placed telephone call at the request of the PCP to discuss behavioral health needs and provide referrals for outpatient support. Patient states she is looking to establish with a therapy provider. Would like telephone number to schedule within [facility] and externally. Will send the following: [facility] Psychiatry and Counseling Central Scheduling Call Center [phone] [facility] ([place]) [phone] [facility] ([place]) Counseling only [phone] [facility] ([place]) Counseling only [phone] [facility] ([place]) Counseling only [phone] [facility] ([place]) [phone] Extension: [phone] [employer] Scott, [facility] ([place]) Counseling only [phone] [facility] ([place]) Counseling only [phone] [facility] [place] ([place]) Counseling only [phone] [facility] ([place]) [phone] [facility] ([place]) [phone] [employer] ([place]) Counseling only [phone] [facility] [place] [place] ([place]) Counseling only [phone] [facility] ([place]) Counseling only [phone] [facility] ([place]) [phone] [facility] ([place]) Counseling only [phone] [facility] [place] ([place]) Counseling only [phone] [facility] ([place]) Counseling only [facility] [phone] [facility] ([place]) Counseling only [phone] [facility] ([place]) Counseling only [phone] [facility] ([place]) Counseling only [phone] [facility] ([place]) Counseling only [phone] SALUD Reeves, CODY- January 11, 2023 Allergies As of Date: [...] Encounter Status:Closed by YUE DAHL on 01/11/23 [facility] CNCOon 01-07-2023 CNCO Letter Text [facility] CNPNon 12-31-2022 CNPN Telephone (SPMESH) HUE TITUS ([id number]) 1990 F T Date Time Provider Department 12/31/22 MARCO SLADE SPMESH During your visit today, we recorded the [...] Ct scan can not be scheduled at [place]. Thank you Scheduling line [phone] Marco Slade DO 01/07/2023 12:25 PM Signed Addended by: MARCO SLADE on: 01/07/2023 12:25 PM Modules accepted: Orders Ivanna Jj RN 01/07/2023 3:41 PM Addendum Spoke to Ivanna in [place] she said everything looks good as far as order for CT Myelogram she is going to send a message to one of her leads to have them call patient to schedule. Inna [place] [facility] 01/07/2023 3:54 PM Signed Rec'd call from [...] to call office back or can read [employer] message. Allergies As of Date: 12/31/2022 (No Known Allergies) Date Reviewed: 12/22/2022 Reviewed by: Leola Jansen MA - Fully Assessed Reason for Visit: Scans [867] Primary Visit Diagnosis:Chronic bilateral low back pain with right-sided sciatica [M54.41, G89.29] Other Visit Diagnoses:Juvenile idiopathic scoliosis of thoracolumbar region [M41.115] Arthrodesis status [Z98.1] Order(s):CT MYELOGRAM THORACIC [[id number]] Order #: [id number] IR XR INJ MYELOGRAM [[id number]] Order #: [id number] CT MYELOGRAM LUMBAR [[id number]] Order #: [id number] IR XR INJ MYELOGRAM [[id number]] Order #: [id number] Prescriptions as of 01/18/2023 - dextroamphetamine-amp hetamine [...] mL (BD (more content not included)... Normal [facility] Renal function 2000 panelon 12-23-2022 Albumin [Mass/Vol] 4.4 g/dL 3.9 - 4.9 g/dL [facility] Anion gap [Moles/Vol] 9 mmol/L 9 - 18 mmol/L [facility] Calcium [Mass/Vol] 9.4 mg/dL 8.5 - 10. 2 mg/dL [facility] Chloride [Moles/Vol] 102 mmol/L 97 - 10 5 mmol/L [facility] CO2 [Moles/Vol] 28 mmol/L 22 - 30 mmol/L [facility] Creatinine [Mass/Vol] 0.72 mg/dL 0.58 - 0.96 mg/dL [facility] Estimated Glomerular Filtration Rate 115 mL/min/1.73m >=60 mL/min/1.73m [facility] Glucose [Mass/Vol] 82 mg/dL 74 - 99 mg/dL [facility] Phosphate [Mass/Vol] 3.1 mg/dL 2.7 - 4 .8 mg/dL [facility] Potassium [Moles/Vol] 4.4 mmol/L 3.7 - 5.1 mmol/L [facility] Sodium [Moles/Vol] 139 mmol/L 136 - 144 mmol/L [facility] Urea nitrogen [Mass/Vol] 13 mg/dL 7 - 21 mg/dL [facility] CNOVon 12-22-2022 CNOV Office Visit (FARRAH ) HUE TITUS ([id number]) 1990 F T Date Time Provider Department 12/22/22 8:00 AM MARCO SLADE During your visit today, we recorded the following information about you: Pulse Respiration Blood pressure Weight 67/minute 16/minute 129/87 50.8 kg Height 1.715 m Marco Slade DO 12/26/2022 9:50 PM Signed [facility] - Medical Spine Initial [...] now seeking neurosurgical evaluation for SCS at [facility]. Denies bowel/bladder incontinence or saddle anesthesia. The [...] surgery: -05/16/06 Dr. 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 Manan Garcia at [facility]: T2 to L2 PSF for scoliosis Previously treated by: -Pain Management Dr. Jolly Dennis. -Pain Management Dr. Miguel Angel Pinedo, [facility] in [place] -NSGY Dr. Raymond Sheikh, Neurological Services [facility] in [place] - Rx PT on 02/2022 -Ortho Spine Surgery Dr. Rico Mustafa, [facility] in [place] -NSGY Dr. Shawn Hardin 07/24/21 - no signs of radiculopathy on imaging/EMG, did not recommend surgery; rec SNRB vs SCS. -NSGY Dr. Miguel Angel Allison at [facility] 2005. -NSGY Dr. Manan Garcia at [facility] 2004 PMH: PAF - previously on [...] Illicit drugs: no Personal life: Moved to [place] in 2014 then back to [place] from [place] in 2021. 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 Normal [facility] No Panel Informationon 12-22 [facility] Renal function 2000 panelon 12-22-2022 Albumin [Mass/Vol] 4.4 g/dL Normal 3.9-4.9 [facility] Comment on above: Order Comment: Speci men Type: BLOOD SPECIMENOrdering Facility: [facility] Address: [address] [place] [address] Performed By: #### 2 4362-6 ####[facility] [id number] [place] [address] [place] Anion gap [Moles/Vol] 9 mmol/L Normal 9-18 [facility] Comment on above: Order Comment: Speci men Type: BLOOD SPECIMENOrdering Facility: [facility] Address: [address] [place] [address] Performed By: #### 2 4362-6 ####[facility] [id number] [place] [address] [place] Calcium [Mass/Vol] 9.4 mg/dL Normal 8.5-10.2 [facility] Comment on above: Order Comment: Speci men Type: BLOOD SPECIMENOrdering Facility: [facility] Address: [address] [place], [place] [address] Performed By: #### 2 4362-6 ####[facility] [id number] [place] [address] [place] Chloride [Moles/Vol] 102 mmol/L Normal 97-105 [facility] Comment on above: Order Comment: Speci men Type: BLOOD SPECIMENOrdering Facility: [facility] Address: [address] [place], [place] [address] Performed By: #### 2 4362-6 ####[facility] [id number] [place] [address] [place] CO2 [Moles/Vol] 28 mmol/L Normal 22-30 [facility] Comment on above: Order Comment: Speci men Type: BLOOD SPECIMENOrdering Facility: [facility] Address: [address] [address] Performed By: #### 2 4362-6 ####[facility] [id number] [address] STATES [place] [facility] Creatinine [Mass/Vol] 0.72 mg/dL Normal 0.58-0.96 [facility] Comment on above: Order Comment: Speci men Type: BLOOD SPECIMENOrdering Facility: [facility] Address: [address] [address] Performed By: #### 2 4362-6 ####[facility] [id number] [address] [place] [facility] ESTIMATED GLOMERULAR FILTRATION RATE 115 mL/min/1.73m??? Normal >=60 [facility] Comment on above: Order Comment: Speci men Type: BLOOD SPECIMENOrdering Facility: [facility] Address: [address] [place] [address] Result Comment: Anabela mated Glomerular Filtration Rate [...] actual GFR. Performed By: #### 2 4362-6 ####[facility] LABIA [id number] [address] [place] Glucose [Mass/Vol] 82 mg/dL Normal 74-99 [facility] Comment on above: Order Comment: Speci men Type: BLOOD SPECIMENOrdering Facility: [facility] Address: [address] [place] [address] Result Comment: The [place] Diabetes Association (ADA) provides guidance for cutoff [...] Standards of Medical Care in Diabetes 2016, [place] [employer]. Diabetes Care. 2016.39(Suppl 1). Performed By: #### 2 4362-6 ####[facility] LABIA [id number] [place] [address] [place] Phosphate [Mass/Vol] 3.1 mg/dL Normal 2.7-4.8 [facility] Comment on above: Order Comment: Speci men Type: BLOOD SPECIMENOrdering Facility: [facility] Address: [address] [place] [address] Performed By: #### 2 4362-6 ####[facility] LABIA [id number] [place] [address] [place] Potassium [Moles/Vol] 4.4 mmol/L Normal 3.7-5.1 [facility] Comment on above: Order Comment: Speci men Type: BLOOD SPECIMENOrdering Facility: [facility] Address: [address] [place] [address] Performed By: #### 2 4362-6 ####[facility] LABIA [id number] [place] [address] [place] Sodium [Moles/Vol] 139 mmol/L Normal 136-144 [facility] Comment on above: Order Comment: Speci men Type: BLOOD SPECIMENOrdering Facility: [facility] Address: [address] [address] Performed By: #### 2 4362-6 ####[facility] LABIA [id number] [place] [address] [place] Urea nitrogen [Mass/Vol] 13 mg/dL Normal 7-21 [facility] Comment on above: Order Comment: Speci men Type: BLOOD SPECIMENOrdering Facility: [facility] Address: [address] [address] Performed By: #### 2 4362-6 ####[facility] LABCLIA [id number] [facility] [place] [address] [place] CBC W Auto Differential pane l (Bld)on 07-24-2022 Basophils (Bld) [#/Vol] 0.04 10*3/uL Normal <0.11 [facility] Comment on above: Order Comment: Speci men Type: BLOOD SPECIMEN [facility] Address: [address] [address] Performed By: #### 5 7021-8 #### [facility] [place] [id number] [address] [place] [address] [place] Basophils/100 WBC (Bld) 0.5 % Normal [facility] Comment on above: Order Comment: Speci men Type: BLOOD SPECIMEN [facility] Address: [address] [address] Performed By: #### 5 7021-8 #### [facility] [place] [id number] [address] [place] [address] [place] Differential cell count method Nom (Bld) Auto Normal [facility] ital Comment on above: Order Comment: Speci men Type: BLOOD SPECIMEN [facility]: [facility] Address: [address] [address] Performed By: #### 5 7021-8 #### [facility] CLIA [id number] [address] [place] [address] [place] Eosinophils (Bld) [#/Vol] 0.14 10*3/uL Normal <0.46 [facility] Comment on above: Order Comment: Speci men Type: BLOOD SPECIMEN [facility] Address: [address] [address] Performed By: #### 5 7021-8 #### [facility] CLIA [id number] [address] [place] [address] [place] Eosinophils/100 WBC (Bld) 1.8 % Normal [facility] Comment on above: Order Comment: Speci men Type: BLOOD SPECIMEN [facility] Address: [address] [address] Performed By: #### 5 7021-8 #### [facility] [place] [id number] [address] [place] [address] [place] Erythrocyte distribution width (RBC) [Ratio] 12.9 % Normal 11.5-15.0 [facility] Comment on above: Order Comment: Speci men Type: BLOOD SPECIMEN [facility] Address: [address] [address] Performed By: #### 5 7021-8 #### [facility] [place] [id number] [address] [place] [address] [place] Hematocrit (Bld) [Volume fraction] 38.8 % Normal 36.0-46.0 [facility] Comment on above: Order Comment: Speci men Type: BLOOD SPECIMEN [facility] Address: [address] [address] Performed By: #### 5 7021-8 #### [facility] [place] [id number] [address] [place] [address] [place] Hemoglobin (Bld) [Mass/Vol] 13.0 g/dL Normal 11.5-15.5 [facility] Comment on above: Order Comment: Speci men Type: BLOOD SPECIMEN [facility] Address: [address] [address] Performed By: #### 5 7021-8 #### [facility] [place] [id number] [place] [address] [place] Immature granulocytes (Bld) [#/Vol] 10*3/uL Normal <0.10 [facility] Comment on above: Order Comment: Speci men Type: BLOOD SPECIMEN [facility] Address: [address] Performed By: #### 5 7021-8 #### [facility] CLIA [id number] [place] Immature granulocytes/100 WBC (Bld) 0.3 % Normal [facility] Comment on above: Order Comment: Speci men Type: BLOOD SPECIMEN [facility] Address: [address] [address] Performed By: #### 5 7021-8 #### [facility] [place] [id number] [address] [place] [address] [place] Lymphocytes (Bld) [#/Vol] 3.16 10*3/uL Normal 1.00-4.00 [facility] Comment on above: Order Comment: Speci men Type: BLOOD SPECIMEN [facility] Address: [address] [address] Performed By: #### 5 7021-8 #### [facility] [place] [id number] [address] [place] Lymphocytes/100 WBC (Bld) 41.5 % Normal [facility] Comment on above: Order Comment: Speci men Type: BLOOD SPECIMEN [facility] Address: [address] [address] Performed By: #### 5 7021-8 #### [facility] [place] [id number] [address] [place] [address] [place] MCH (RBC) [Entitic mass] 30.0 pg Normal 26.0-34.0 [facility] Comment on above: Order Comment: Speci men Type: BLOOD SPECIMEN [facility] Address: [address] Performed By: #### 5 7021-8 #### [facility] [place] [id number] [address] [place] [address] [place] MCHC (RBC) [Mass/Vol] 33.5 g/dL Normal 30.5-36.0 [facility] Comment on above: Order Comment: Speci men Type: BLOOD SPECIMEN [facility] Address: [address] [address] Performed By: #### 5 7021-8 #### [facility] [place] [id number] [address] [place] [address] [place] MCV (RBC) [Entitic vol] 89.6 fL Normal 80.0-100.0 [facility] Comment on above: Order Comment: Speci men Type: BLOOD SPECIMEN [facility] Address: [address] [address] Performed By: #### 5 7021-8 #### [facility] [place] [id number] [address] [place] [address] [place] Monocytes (Bld) [#/Vol] 0.88 10*3/uL High <0.87 [facility] Comment on above: Order Comment: Speci men Type: BLOOD SPECIMEN [facility] Address: [address] [address] Performed By: #### 5 7021-8 #### [facility] [place] [id number] [address] [place] [address] [place] Monocytes/100 WBC (Bld) 11.6 % Normal [facility] Comment on above: Order Comment: Speci men Type: BLOOD SPECIMEN [facility] Address: [address] Performed By: #### 5 7021-8 #### [facility] [place] [id number] [address] [place] [address] [place] Neutrophils (Bld) [#/Vol] 3.37 10*3/uL Normal 1.45-7.50 [facility] Comment on above: Order Comment: Speci men Type: BLOOD SPECIMEN [facility] Address: [address] [address] Performed By: #### 5 7021-8 #### [facility] [place] [id number] [address] [address] [place] [id number] [place] Neutrophils/100 WBC (Bld) 44.3 % Normal [facility] Comment on above: Order Comment: Speci men Type: BLOOD SPECIMEN [facility] Address: [address] Performed By: #### 5 7021-8 #### [facility] CLIA [id number] [address] [place] [address] [place] Nucleated RBC (Bld) [#/Vol] 10*3/uL Normal <0.01 [facility] Comment on above: Order Comment: Speci men Type: BLOOD SPECIMEN [facility] Address: [address] Performed By: #### 5 7021-8 #### [facility] [place] [id number] [address] [place] [address] [place] Nucleated RBC/100 WBC (Bld) [Ratio] 0.0 /100 WBC Normal [facility] Comment on above: Order Comment: Speci men Type: BLOOD SPECIMEN [facility] Address: [address] Performed By: #### 5 7021-8 #### [facility] [place] [id number] [address] [place] [address] [place] Platelet mean volume (Bld) [Entitic vol] 9.0 fL Normal 9.0-12.7 [facility] Comment on above: Order Comment: Speci men Type: BLOOD SPECIMEN [facility] Address: [address] Performed By: #### 5 7021-8 #### [facility] IA [id number] [address] [place] [address] [place] Platelets (Bld) [#/Vol] 347 10*3/uL Normal 150-400 [facility] Comment on above: Order Comment: Speci men Type: BLOOD SPECIMEN [facility] Address: [address] Performed By: #### 5 7021-8 #### [facility] CLIA [id number] [address] [place] [address] [place] RBC (Bld) [#/Vol] 4.33 10*6/uL Normal 3.90-5.20 [facility] Comment on above: Order Comment: Speci men Type: BLOOD SPECIMEN [facility] Address: [address] [address] Performed By: #### 5 7021-8 #### [facility] CLIA [id number] [place] [address] [place] WBC (Bld) [#/Vol] 7.61 10*3/uL Normal 3.70-11.00 [facility] Comment on above: Order Comment: Speci men Type: BLOOD SPECIMEN [facility] Address: [address] [place] [address] Performed By: #### 5 7021-8 #### [facility] CLIA [id number] [place] [address] [place] Comprehensive metabolic 2000 panelon 07-24-2022 Albumin [Mass/Vol] 4.2 g/dL Normal 3.9-4.9 [facility] Comment on above: Order Comment: Speci men Type: BLOOD SPECIMENOrdering Facility: [facility] Address: [address] [address] Performed By: #### 3 040-3, 91886-2, 05566-6, 6-3 ####[facility]ORATORYCLIA [id number] [place] [address] [place] ALP [Catalytic activity/Vol] 49 U/L Normal 34-123 [facility] Comment on above: Order Comment: Speci men Type: BLOOD SPECIMENOrdering Facility: [facility] Address: [address] [address] Performed By: #### 3 040-3, 61594-0, 28195-7, 6-3 ####[facility]ORATORYCLIA [id number] [place] [address] [place] ALT [Catalytic activity/Vol] 11 U/L Normal 7-38 [facility] Comment on above: Order Comment: Speci men Type: BLOOD SPECIMENOrdering Facility: [facility] Address: [address] [place] [address] Performed By: #### 3 040-3, 15273-6, 27805-1, 3016-3 ####[facility]ORATORYCLIA [id number] [place] [address] [place] Anion gap [Moles/Vol] 7 mmol/L Low 9-18 [facility] Comment on above: Order Comment: Speci men Type: BLOOD SPECIMENOrdering Facility: [facility] Address: [address] [place] [address] Performed By: #### 3 040-3, 41842-1, 42428-8, 3016-3 ####[facility]ORATORYCLIA [id number] [place] [address] [place] AST [Catalytic activity/Vol] 14 U/L Normal 13-35 [facility] Comment on above: Order Comment: Speci men Type: BLOOD SPECIMENOrdering Facility: [facility] Address: [address] [place] [address] Performed By: #### 3 040-3, 63153-6, 16498-4, 3016-3 ####[facility]ORATORYCLIA [id number] [place] [address] [place] Bilirubin [Mass/Vol] 0.3 mg/dL Normal 0.2-1.3 [facility] Comment on above: Order Comment: Speci men Type: BLOOD SPECIMENOrdering Facility: [facility] Address: [address] [place] [address] Performed By: #### 3 040-3, 04986-8, 51039-8, 3016-3 ####[facility] LABORATORYCLIA [id number] [place] [address] [place] Calcium [Mass/Vol] 9.3 mg/dL Normal 8.5-10.2 [facility] Comment on above: Order Comment: Speci men Type: BLOOD SPECIMENOrdering Facility: [facility] Address: [address] [place] [address] Performed By: #### 3 040-3, 94565-6, 13956-0, 3015-3 ####[facility]ORATORYCLIA [id number] [place] [address] [place] Chloride [Moles/Vol] 103 mmol/L Normal 97-105 [facility] Comment on above: Order Comment: Speci men Type: BLOOD SPECIMENOrdering Facility: [facility] Address: [address] [address] Performed By: #### 3 040-3, 84584-3, 47349-8, 3 ####[facility] [id number] [place] [address] [place] CO2 [Moles/Vol] 29 mmol/L Normal 22-30 [facility] ital Comment on above: Order Comment: Speci men Type: BLOOD SPECIMENOrdering Facility: [facility] Address: [address] [address] Performed By: #### 3 040-3, , 82061-8, 3 ####[facility] [id number] [place] [address] [place] Creatinine [Mass/Vol] 0.84 mg/dL Normal 0.58-0.96 [facility] Comment on above: Order Comment: Speci men Type: BLOOD SPECIMENOrdering Facility: [facility] Address: [address] Performed By: #### 3 040-3, 59226-4, 40366-9, 3 ####[facility]ATORYIA [id number] [place] [address] [place] ESTIMATED GLOMERULAR FILTRATION RATE 95 mL/min/1.73m??? Normal >=60 [facility] Comment on above: Order Comment: Speci men Type: BLOOD SPECIMENOrdering Facility: [facility] Address: [address] [place] [address] Result Comment: Anabela mated Glomerular Filtration Rate [...] actual GFR. Performed By: #### 3 040-3, 63066-4, 93802-8, 3 ####[facility]ATORYCLIA [id number] [place] [address] [place] Glucose [Mass/Vol] 55 mg/dL Low 74-99 [facility] Comment on above: Order Comment: Dada arenas Type: BLOOD SPECIMENOrdering Facility: [facility] Address: [address] [place] [address] Result Comment: The [place] Diabetes Association (ADA) provides guidance for cutoff [...] Standards of Medical Care in Diabetes 2016, [place] [employer]. Diabetes Care. 2016.39(Suppl 1). Performed By: #### 3 040-3, 51842-0, 26730-7, 3 ####[facility]ORYCLIA [id number] [place] [address] [place] Potassium [Moles/Vol] 3.6 mmol/L Low 3.7-5.1 [facility] Comment on above: Order Comment: [facility] Type: BLOOD SPECIMENOrdering Facility: [facility] Address: [address] [place] [address] Performed By: #### 3 040-3, 74137-8, 39590-9, 3016-3 ####[facility] [id number] [place] [address] [place] Protein [Mass/Vol] 6.9 g/dL Normal 6.3-8.0 [facility] Comment on above: Order Comment: Speci men Type: BLOOD SPECIMENOrdering Facility: [facility] Address: [address] [address] Performed By: #### 3 040-3, 17537-0, 58611-0, 3016-3 ####[facility] [id number] [place] [id number] [place] Sodium [Moles/Vol] 139 mmol/L Normal 136-144 [facility] Comment on above: Order Comment: Speci men Type: BLOOD SPECIMENOrdering Facility: [facility] Address: [address] [address] Performed By: #### 3 040-3, 99092-8, 69741-7, 3016-3 ####[facility] [id number] [place] [address] [place] Urea nitrogen [Mass/Vol] 13 mg/dL Normal 7-21 [facility] Comment on above: Order Comment: Speci men Type: BLOOD SPECIMENOrdering Facility: [facility] Address: [address] [address] Performed By: #### 3 040-3, 70237-2, 35125-1, 3016-3 ####[facility] [id number] [place] [address] [place] D dimer FEU PPP-mCncon 07-24 Fibrin D-dimer FEU (PPP) [Mass/Vol] <190 Normal <500 [facility] Comment on above: Order Comment: Speci men Type: BLOOD SPECIMEN [facility] Address: [address] [place] [address] Performed By: #### 4 8065-7 #### [facility] CLIA [id number] [place] [address] [facility] ECG COMPLETEon 07-24-2022 ECG COMPLETE Ventricular Rate : 8 8 BPM Atrial Rate : 197 BPM QRS Duration : 100 ms Q-T Interval : 367 ms QTC Calculation(Bazett) : 444 ms Calculated R [place] : 81 degrees Calculated T [place] : 81 degrees Atrial fibrillation RSR' in V1 or V2, probably normal variant Nonspecific T abnrm, anterolateral leads Abnormal ECG 401 no stemi Confirmed by BEN DIAZ MD ([id number]), editor publications Beatriz Ferguson ([id number]) on 07/24/2022 2:29:25 PM NAME : HUE AGUILAR PID : [id number] : 1990 Gender : Female Race : Unknown ORD : [id number] Procedure Date : Jul 24 2022 04:01:09 Edit Date : Jul 24 2022 14:29:26 Diagnosis: Atrial fibrillation RSR' in V1 or V2, probably normal variant Nonspecific T abnrm, anterolateral leads Abnormal ECG 401 no stemi Confirmed by BEN DIAZ MD ([id number]), editor publications Beatriz Ferguson ([id number]) on 07/24/2022 2:29:25 PM Test Reason : Chest Pain Location : 302 : ED AVED-14 Overread By : BEN DIAZ MD Edited By : Beatriz Ferguson Referred By : , Acquired by : [id number], [facility] ED NOTEon 07-24-2022 ED NOTE HNO ID: [id number] Author: Brittni Fierro RN Service: ? Author Type: Registered Nurse Type: ED Notes Filed: 07/24/2022 5:12 AM Note Text: Pt given instructions on discharge, medication, and follow-up. Pt educated on when to return to the ED with worsening of symptoms. Pt verbalized understanding with no further questions. Saline lock D/C. Pt ambulated with a steady gait at discharge. Pt discharged home with family. [facility] ED NOTE HNO ID: [id number] Author: Kelli Michel RN Service: ? Author Type: Registered Nurse Type: ED Notes Filed: 07/24/2022 2:58 AM Note Text: Ambulatory to bathroom with steady gait. Attempting urine collection. [facility] ED NOTE HNO ID: [id number] Author: Marjorie Lopez RN Service: ? Author Type: Registered Nurse Type: ED Notes Filed: 07/24/2022 2:36 AM Note Text: See downtime forms. [facility] ED NOTE HNO ID: [id number] Author: Kelli Michel RN Service: ? Author Type: Registered Nurse Type: ED Notes Filed: 07/23/2022 11:14 PM Note Text: Xray at bedside. [facility] ED NOTE HNO ID: [id number] Author: Garry Haro RN Service: Nursing Author Type: Registered Nurse Type: ED Notes Filed: 07/23/2022 10:50 PM Note Text: Pt states palpitations today Plan of care -Monitor Patient's Vital Signs -Monitor pain -Maintain patient safety and privacy -Provide comfort measures as needed -Call light in place -Siderails up, bed in locked and low position. [facility] ED PROV NOTEon 07-24-2022 ED PROV NOTE HNO ID: [id number] Author: Ben Diaz DO Service: Emergency Medicine [...] following components: Result Value Ref Range Abs Parker 0.88 (*) <0.87 k/uL All other components [...] years wi (more content not included)... [facility] EKGon 07-24-2022 Electrocardiogram Ventricular Rate : 130 BPM Atrial Rate : 138 BPM QRS Duration : 78 ms Q-T Interval : 300 ms QTC Calculation(Bazett) : 441 ms Calculated R [place] : 77 degrees Calculated T [place] : 62 degrees Atrial fibrillation with rapid ventricular response Nonspecific T wave abnormality Abnormal ECG 2256 Atrial fibrillation with rapid ventricular response no stemi Confirmed by MD MILLER CHRISTOPHER ([id number]), editor publications Beatriz Ferguson ([id number]) on 07/24/2022 2:26:58 PM NAME : HUE AGUILAR PID : [id number] : 1990 Gender : Female Race : Unknown ORD : Procedure Date : Jul 23 2022 22:56:02 Edit Date : Jul 24 2022 14:27:01 Diagnosis: Atrial fibrillation with rapid ventricular response Nonspecific T wave abnormality Abnormal ECG 2257 Atrial fibrillation with rapid ventricular response no stemi Confirmed by MD MILLER CHRISTOPHER ([id number]), editor publications Beatriz Ferguson ([id number]) on 07/24/2022 2:26:58 PM Test Reason : Location : 302 : ED ED Overread By : MD MILLER CHRISTOPHER Edited By : Beatriz Ferguson Referred By : , Acquired by : , [facility] HIGH SENSITIVITY TROPONIN T (INITIAL)on 07-24-2022 HIGH SENSITIVITY MELINDA 8 ng/L Normal <12 [facility] Comment on above: Order Comment: Dada arenas Type: BLOOD SPECIMENOrdering Facility: [facility] Address: [address] [place] [address] Result Comment: When assessing risk for acute [...] 30 day MACE. Performed By: #### L [id number] ####[facility] [id number] [place] [address] [place] HIGH SENSITIVITY TROPONIN T (SECOND)on 07-24-2022 HIGH SENSITIVITY MELINDA 8 ng/L Normal <[address] [place] [address] Comment on above: Order Comment: Dada arenas Type: BLOOD SPECIMENOrdering Facility: [facility] Address: [address] [place] [address] Result Comment: When assessing risk for acute [...] 30 day MACE. Performed By: #### L [id number] ####[facility] LABORATORYCLIA [id number] [place] [address] [place] Lipase SerPl-cCncon 07-24-20 22 Lipase [Catalytic activity/Vol] 47 U/L Normal 16-61 [facility] Comment on above: Order Comment: Speci men Type: BLOOD SPECIMENOrdering Facility: [facility] Address: [address] [place] [address] Performed By: #### 3 040-3, 97998-1, 90997-2, 3016-3 ####[facility] [id number] [place] [address] [place] Magn[facility] Magnesium [Mass/Vol] 2.1 mg/dL Normal 1.7-2.3 [facility] Comment on above: Order Comment: Speci [facility] Type: BLOOD SPECIMENOrdering Facility: [facility] Address: [address] [place] [address] Performed By: #### 3 040-3, 28462-2, 38390-7, 3016-3 ####[facility] [id number] [place] [id number] [place] NT-proBNP [facility]24 Natriuretic peptide.B prohormone N-Terminal [Mass/Vol] 345 pg/mL High <125 [facility] Comment on above: Order Comment: Speci [facility] Type: BLOOD SPECIMENOrdering Facility: [facility] Address: [address] [place] [address] Performed By: #### 3 3762-6 ####[facility] [id number] [place] [id number] [place] TSH SerPl-aCncon 07-24-2022 TSH Qn 1.850 m[IU]/L Normal 0.270-4.200 [facility] Comment on above: Order Comment: Speci [facility] Type: BLOOD SPECIMENOrdering Facility: [facility] Address: [address] [place] [address] Result Comment: If t he patient is , TSH reference range varies by gestational period: First Trimester (weeks 9-12): 0.180-2.990 mIU/L Second Trimester: 0.110-3.980 mIU/L Third Trimester: 0.480-4.710 mIU/L Pedro Lim et kassandra. A Practical Approach for the Verifications and Determination of Site- and Trimester-Specific Reference Intervals for Thyroid Function tests in . Thyroid, 2019:29:3:412-420. Jam Pacheco, et al. 2017 Guidelines of the [place] Thy[employer] for the Diagnosis and Management of Thyroid Disease during and the . Thyroid, 2017:27:3:315-389. Performed By: #### 3 040-3, 51811-6, 16751-5, 3016-3 ####[facility] LABORATORYCLIA [id number] [place] [address] [facility] XR CHEST 1V FRONTAL PORTon 1 09-23-2021 [...] Payne rods. IMPRESSION: No acute radiographic abnormality. Egg Gatherer: PSCLeah Transcribe Date/Time: Jul 23 2022 11:19P Dictated by : HONG MEDRANO MD This examination was interpreted and the report reviewed and electronically signed by: HONG MEDRANO MD on Jul 23 2022 11:19PM EST [id number] [facility] Vital Signs Date Time Vital Sign Value Performing Clinician Facility 09-12-2023 13:20-0500 Body height 171.45 cm Lorie Townsend Other [employer] Other 09-12-2023 13:20-0500 Body mass index (BMI) [Ratio] 22.99 kg/m2 Lorie Townsend Other [employer] Other 09-12-2023 13:20-0500 Body weight 67.59 kg Lorie Townsend Other [facility] [employer] Other 05-27-2023 13:40-0400 Body height 170.2 cm Jessee Hamilton MD Work Phone: [facility] 05-27-2023 13:40-0400 Body weight 65.77 kg Jessee Hamilton MD Work Phone: [facility] 05-27-2023 13:40-0400 Diastolic blood pressure 76 mm[Hg] Jessee Hamilton MD Work Phone: [facility] 05-27-2023 13:40-0400 Heart rate 97 /min Jessee Hamilton MD Work Phone: [facility] 05-27-2023 13:40-0400 Systolic blood pressure 124 mm[Hg] Jessee Hamilton MD Work Phone: [facility] 05-26-2023 13:29-0400 Diastolic blood pressure 87 mm[Hg] Ashwini Finefrock PA-C Work Phone: [facility] 05-26-2023 13:29-0400 Systolic blood pressure 122 mm[Hg] Ashwini Finefrock PA-C Work Phone: [facility] 05-26-2023 13:11-0400 Body height 170.2 cm Ashwini Finefrock PA-C Work Phone: [facility] 05-26-2023 13:11-0400 Body temperature 98.29 [degF] Ashwini Finefrock PA-C Work Phone: [facility] 05-26-2023 13:11-0400 Body weight 64.41 kg Ashwini Finefrock PA-C Work Phone: [facility] 05-26-2023 13:11-0400 Heart rate 71 /min Ashwini Finefrock PA-C Work Phone: [facility] 05-26-2023 13:11-0400 SaO2% (BldA) [Mass fraction] 98 % Ashwini Finefrock PA-C Work Phone: [facility] 02-22-2023 14:21-0400 Body height 170.2 cm Ashwini Finefrock PA-C Work Phone: [facility] 02-22-2023 14:21-0400 Body weight 56.25 kg Ashwini Finefrock PA-C Work Phone: [facility] 02-22-2023 14:21-0400 Diastolic blood pressure 79 mm[Hg] Ashwini Finefrock PA-C Work Phone: [facility] 02-22-2023 14:21-0400 Heart rate 90 /min Ashwini Finefrock PA-C Work Phone: [facility] 02-22-2023 14:21-0400 SaO2% (BldA) [Mass fraction] 98 % Ashwini Finefrock PA-C Work Phone: [facility] 02-22-2023 14:21-0400 Systolic blood pressure 110 mm[Hg] Ashwini Finefrock PA-C Work Phone: [facility] 02-08-2023 15:30-0400 Body height 170.2 cm Chitra Mizanin PA-C Work Phone: [facility] 02-08-2023 15:30-0400 Body weight 55.79 kg Chitra Mizanin PA-C Work Phone: [facility] 02-08-2023 15:30-0400 Diastolic blood pressure 84 mm[Hg] Chitra Mizanin PA-C Work Phone: [facility] 02-08-2023 15:30-0400 Heart rate 71 /min Chitra Mizanin PA-C Work Phone: [facility] 02-08-2023 15:30-0400 SaO2% (BldA) [Mass fraction] 98 % Chitra Mizanin PA-C Work Phone: [facility] 02-08-2023 15:30-0400 Systolic blood pressure 128 mm[Hg] Chitra Mizanin PA-C Work Phone: [facility] 02-04-2023 11:16-0400 Diastolic blood pressure 82 mm[Hg] Chitra Mizanin PA-C Work Phone: [facility] 02-04-2023 11:16-0400 Systolic blood pressure 124 mm[Hg] Chitra Mizanin PA-C Work Phone: [facility] 02-04-2023 10:56-0400 Body height 170.2 cm Chitra Mizanin PA-C Work Phone: [facility] 02-04-2023 10:56-0400 Body weight 55.34 kg Chitra Mizanin PA-C Work Phone: [facility] 02-04-2023 10:56-0400 Heart rate 78 /min Chitra Mizanin PA-C Work Phone: [facility] 02-04-2023 10:56-0400 SaO2% (BldA) [Mass fraction] 99 % Chitra Mizanin PA-C Work Phone: [facility] 02-03-2023 14:55-0400 Body height 170.2 cm Aria Glasenapp PA-C Work Phone: [facility] 02-03-2023 14:55-0400 Body weight 55.43 kg Aria Glasenapp PA-C Work Phone: [facility] 02-03-2023 14:55-0400 Diastolic blood pressure 89 mm[Hg] Aria Glasenapp PA-C Work Phone: [facility] 02-03-2023 14:55-0400 Heart rate 80 /min Aria Glasenapp PA-C Work Phone: [facility] 02-03-2023 14:55-0400 Systolic blood pressure 152 mm[Hg] Aria Lionelizabeth TATE-Josh Work Phone: [facility] 12-22-2022 08:20-0400 Body height 171.5 cm Marco Stephensis DO Work Phone: [facility] 12-22-2022 08:20-0400 Body weight 50.8 kg Marco Slade DO Work Phone: [facility] 12-22-2022 08:20-0400 Diastolic blood pressure 87 mm[Hg] Marco Stephensis DO Work Phone: [facility] 12-22-2022 08:20-0400 Heart rate 67 /min Marco Stephensis DO Work Phone: [facility] 12-22-2022 08:20-0400 Respiratory rate 16 /min Marco Slade DO Work Phone: [facility] 12-22-2022 08:20-0400 SaO2% (BldA) [Mass fraction] 100 % Marco Slade DO Work Phone: [facility] 12-22-2022 08:20-0400 Systolic blood pressure 129 mm[Hg] Marco Stephensis DO Work Phone: [facility] 09-27-2022 09:10-0500 Body height 170.2 cm Jessee Hamilton MD Work Phone: [facility] 09-27-2022 09:10-0500 Body weight 50.35 kg Jessee Hamilton MD Work Phone: [facility] 09-27-2022 09:10-0500 Diastolic blood pressure 78 mm[Hg] Jessee Hamilton MD Work Phone: [facility] 09-27-2022 09:10-0500 Heart rate 87 /min Jessee Hamilton MD Work Phone: [facility] 09-27-2022 09:10-0500 SaO2% (BldA) [Mass fraction] 99 % Jessee Hamilton MD Work Phone: [facility] 09-27-2022 09:10-0500 Systolic blood pressure 110 mm[Hg] Jessee Hamilton MD Work Phone: [facility] Encounters Encounter Date Encounter Type Care Provider Facility Start: 10-03-2023 End: 10-04-2023 ambulatory Chucky Hernandez MD Facility:[facility] Start: 09-26-2023 End: 09-27-2023 ambulatory Chucky Hernandez MD Facility:[facility] Start: 09-12-2023 End: 09-12-2023 ambulatory Lorie Townsend Facility:[facility] Start: 09-12-2023 End: 09-12-2023 Patient encounter procedure PHYSICIAN NO [facility] Work Phone: Start: 09-12-2023 End: 09-12-2023 ambulatory PHYSICIAN NO [facility] Work Phone: Start: 09-12-2023 Office outpatient ne w 45 minutes Lorie Townsend [facility] Start: 07-14-2023 End: 07-15-2023 ambulatory TERRIE BROWN [facility] Start: 07-14-2023 End: 07-14-2023 Office outpatient visit 25 minutes Terrie Brown MD Work Phone: [facility] Comment on above: Neuropathy (Primary Dx); Lumbar radiculopathy Start: 06-21-2023 ambulatory [facility] Start: 06-15-2023 Refill Ashwini hancock PA-C Work Phone: [facility] Comment on above: Refill Request Start: 06-05-2023 Refill Ashwini hancock PA-C Work Phone: [facility] Comment on above: Refill Request Start: 05-30-2023 Refill Ashwini hancock PA-C Work Phone: [facility] Comment on above: Refill Request Start: 05-27-2023 End: 05-27-2023 ambulatory ASHWINI MATUTE Facility:[facility] Start: 05-27-2023 End: 05-27-2023 Patient encounter procedure Jessee Hamilton MD Work Phone: Cardiology Comment on above: Paroxysmal atrial fi brillation (HCC) (Primary Dx); Palpitations Start: 05-26-2023 End: 05-26-2023 ambulatory ASHWINI MATUTE Facility:[facility] Start: 05-26-2023 End: 05-26-2023 Patient encounter procedure Ashwini Arangojenniffer PA-C Work Phone: [facility] Comment on above: Moderate episode of recurrent major depressive disorder (HCC) (Primary Dx); Attention deficit hyperactivity disorder (ADHD), unspecified ADHD type; Alcohol abuse; Juvenile idiopathic scoliosis of thoracolumbar region; Paroxysmal atrial fibrillation (HCC); Neuropathy; Encounter for immunization Start: 05-20-2023 Get Medical Advice Uri Hoyosfrock PA-C Work Phone: [facility] Comment on above: Adderall refill Start: 05-19-2023 Refill Ashwini Nguyễn inefrock PA-C Work Phone: [facility] Comment on above: Refill Request Start: 05-18-2023 Refill Ashwini Nguyễn inefrock PA-C Work Phone: [facility] Comment on above: Refill Request Start: 05-15-2023 Refill Ashwini Nguyễn inefrock PA-C Work Phone: [facility] Comment on above: Refill Request Start: 04-27-2023 Refill Chitra mercado PA-C Work Phone: [facility] Comment on above: Refill Request Start: 04-26-2023 Refill Ashwini Nguyễn inefrock PA-C Work Phone: [facility] Comment on above: Refill Request Start: 04-21-2023 Get Medical Advice Minaaliyah Lim Conchitaock PA-C Work Phone: [facility] Comment on above: Adderall refill Start: 04-12-2023 ambulatory Ashwini Nguyễn higiniofrock PA-C Work Phone: [place] Start: 04-12-2023 Letter encounter Ashwini L Conchitaock PA-C Work Phone: [facility] Comment on above: Letter for Disabilit y Start: 03-31-2023 Refill Ashwini Nguyễn inefrock PA-C Work Phone: [facility] Start: 03-22-2023 ambulatory Ashwini Nguyễn higiniofrock PA-C Work Phone: [facility] Comment on above: Resend prescription Refill Request Med refill Start: 2023 Chart Update Ashwini sylvesterfrock Work Phone: AN-Ioltbfzncavx-Viydmh an Work Phone: Start: 03-14-2023 End: 03-14-2023 Get Medical Advice Ashwini Lim Conchitaock PA-C Work Phone: [facility] Comment on above: Medication refills Low back pain, unspe cified; Radiculopathy, lumbar region; Arthrodesis status Start: 03-14-2023 Chart Update Ashwini sylvesterfrock Work Phone: QN-Ijnomqgzvkhq-E [facility] [address] DO Work Phone: Start: 03-09-2023 AUDIT Ashwini sylvesterfrock Work Phone: UD-Tmfhlwrpehll-Vicyvu an Work Phone: Start: 03-03-2023 End: 03-03-2023 ambulatory ARIA IZQUIERDO Facility:[facility] Start: 02-25-2023 ambulatory Aria Izquierdo PA-C Work Phone: [facility] Start: 02-25-2023 Patient encounter procedure Aria Izquierdo PA-C Work Phone: OB/Gynecology Comment on above: Upcoming appointment Start: 02-24-2023 Chart Update Ashwini hancock Work Phone: IG-Lwfpctsmeeov-Dsvzbd ke Work Phone: Start: 02-22-2023 End: 02-22-2023 ambulatory ASHWINI Carina MATUTE Facility:[facility] Start: 02-22-2023 End: 02-22-2023 Patient encounter procedure Ashwini Arangojenniffer PA-C Work Phone: Internal [facility] Comment on above: Mild episode of recu rrent major depressive disorder (HCC) (Primary Dx); Attention deficit hyperactivity disorder (ADHD), unspecified ADHD type; Vitamin D deficiency Start: 02-15-2023 End: 02-15-2023 ambulatory ASHWINIRA MATUTE Facility:[facility] Start: 02-10-2023 NPV, Provider: Terrie Brown, Status: Pen, Time: 1:30 PM Terrie Brown MD Work Phone: BL-Hzzastwiiyck-Ungeqp 107 DO Work Phone: Start: 02-10-2023 Office outpatient ne w 30 minutes Ashwini Carina Arangojenniffer Work Phone: PD-Guehrzpwwjur-Rqeflq damon Work Phone: Start: 02-10-2023 Refill Ashwini Nguyễn karissa PA-C Work Phone: Internal [facility] Start: 02-08-2023 AUDIT Terrie aiken MD Work Phone: SF-Gdwrqqevmszd-Njylqv 107 DO Work Phone: Start: 02-08-2023 End: 02-08-2023 Office outpatient visit 25 minutes Chitra Burnett PA-C Work Phone: Internal [facility] Comment on above: Upper back pain on r ight side (Primary Dx) Start: 02-08-2023 End: 02-08-2023 ambulatory Bindu Tirado RT(R) Radiology Comment on above: Radio Gen RMP Start: 02-08-2023 Patient encounter procedure Bindu M Celestino RT(R) [place] Start: 02-07-2023 ambulatory Chitra Yip mariliain PA-C Work Phone: [place] Start: 02-07-2023 Patient encounter procedure Chitra Yipanin PA-C Work Phone: Internal Medicine [facility] Comment on above: Appointment request Start: 02-04-2023 End: 02-04-20[facility] Start: 02-04-2023 End: 02-04-2023 Office outpatient visit 15 minutes Chitra Lim Mizanin PA-C Work Phone: Internal Medicine [facility] Comment on above: Neuropathy (Primary Dx) Start: 02-03-2023 End: 02-03-2023 Subsequent hospital visit by physician [facility] Work Phone: Cardiovascular Testing Comment on above: Palpitations [R00.2] Start: 02-03-2023 End: 02-03-2023 ambulatory ARIA IZQUIERDO Facility:[facility] Start: 02-03-2023 End: 02-03-2023 Patient encounter procedure Aria Izquierdo PA-C Work Phone: OB/Gynecology Comment on above: Counseling for control regarding intrauterine device (IUD) Start: 01-11-2023 End: 01-11-2023 [facility] Start: 01-11-2023 Telephone encounter Yue BRANNON Work Phone: Adult Psychology Comment on above: Behavioral Health/So cial Work Start: 12-31-2022 Telephone encounter Marco Slade DO Work Phone: Spine Medicine Comment on above: Scans Start: 12-22-2022 End: 04-19-2023 Subsequent hospital visit by physician [facility] Phone[facility] Comment on above: Juvenile idiopathic scoliosis of thoracolumbar region [M41.115] Start: 12-22-2022 End: 12-22-2022 ambulatory MARCO SLADE Facility:[facility] Start: 12-22-2022 End: 12-22-2022 Patient encounter procedure [...] Jessee Hamilton MD Work Phone: [facility] Start: 09-27-2022 End: 09-27-2022 Office outpatient new 20 minutes Jessee Hamilton MD Work Phone: Cardiology Comment on above: Palpitations (Primar y Dx); Paroxysmal atrial fibrillation (HCC) Start: 09-15-2022 Telephone encounter Ubaldo sims MD Work Phone: Cardiology Comment on above: Received Outside Med ical Records Start: 07-24-2022 End: 07-24-2022 Emergency department patient visit BEN DIAZ [facility] Procedures Date Procedure Procedure Detail Performing Clinician [...] 2) Zoste r Vaccines (1 of 2) [facility] Start: 01-12-2024 COVID-19 VACCINE (#1) COVID-19 VACCI NE (#1) [facility] Comment on above: Postponed from 09/15 (Declined at this time) Start: 05-26-2023 End: 07-26-2023 Comprehensive metabolic 2000 panel - Serum or Plasma [facility] Work Phone: Comment on above: Expected: 05/26/2023 , Expires: 07/26/2023 Start: 05-26-2023 End: 07-26-2023 TOX SCREEN ROUT UR [facility] Work Phone: Comment on above: Expected: 05/26/2023 , Expires: 07/26/2023 Start: 05-06-2023 Influenza vaccination [facility] Start: 09-05-2022 DEPRESSION ASSESSMENT DEPRESSION ASS ESSMENT [facility] Start: 05-06-2022 Influenza vaccination INFLUENZA (#1) [facility] Start: 2021 HPV TESTING HPV TESTING [facility] Start: 2013 DTaP/Tdap/Td Vaccine s (1 - Tdap) DTaP/Tdap/Td Vaccines (1 - Tdap) [facility] Start: 2012 PAP TESTING PAP TESTING [facility] Start: 2012 Screening for malign ant neoplasm of cervix [facility] Start: 05-30-2011 HPV VACCINE (3 - 3-d ose series) HPV VACCINE (3 - 3-dose series) [facility] Start: 05-30-2011 HPV Vaccines (3 - 3- dose series) HPV Vaccines (3 - 3-dose series) [facility] Start: 2010 Urine microalbumin profile [facility] Start: 2009 Diabetes mellitus screening Diabetes Screening [facility] Start: 2009 HEPATITIS C SCREENING HEPATITIS C [facility] Start: 2009 Hepatitis C screening Hepatitis C [facility] Start: 2009 HIV SCREENING HIV SCREENING [facility] Start: 1992 MMR Vaccines (1 of 1 - Standard series) MMR Vaccines (1 of 1 - Standard series) [facility] Start: 1992 Varicella vaccination Varicell a Vaccines (1 of 2 - 2-dose childhood series) [facility] Start: 1991 COVID-19 VACCINE (#1) COVID-19 VACCI NE (#1) [facility] Start: 1991 HEPATITIS B (1 of 3 - 3-dose series) HEPATITIS B (1 of 3 - 3-dose series) [facility] Start: 1991 Hepatitis B Vaccine (1 of 3 - 3-dose series) Hepatitis B Vaccine (1 of 3 - 3-dose series) [facility] Start: 1991 Hepatitis B Vaccines (1 of 3 - 3-dose series) Hepatitis B Vaccines (1 of 3 - 3-dose series) [facility] Start: 1991 HIV screening HIV Screening [facility] Start: 1991 Lipid panel Lipid Panel [facility] Start: 1991 Yearly Adult Physical Yearly Adult P hysical [facility] Ct lumbar spine w/co ntrast material CT MYELOGRAM LUMBAR Radiology Routine 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 Ordered: 12/22/2022 [facility] Work Phone: Comment on above: Ordered: 12/22/2022 Ct thoracic spine w/contrast material CT MYELOGRAM THORACIC Radiology Routine 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 Ordered: 12/22/2022 [facility] Work Phone: Comment on above: Ordered: 12/22/2022 End: 09-27-2023 ECG COMPLETE ECG COMPLETE ECG Routine Palpitations 1 Occurrences starting 09/27/2022 until 09/27/2023 [facility] Work Phone: Comment on above: 1 Occurrences starti ng 09/27/2022 until 09/27/2023 ECG COMPLETE ECG COMPLETE ECG 09/27/2022 9:14 AM EST [facility] End: 09-27-2023 Echocardiography ECHO Cardiology Routine Palpitations 1 Occurrences starting 09/27/2022 until 09/27/2023 [facility] Work Phone: Comment on above: 1 Occurrences starti ng 09/27/2022 until 09/27/2023 Insertion intrauteri ne device iud INSERT INTRAUTERINE DEVICE Procedures Routine Counseling for control regarding intrauterine device (IUD) Ordered: 02/03/2023 [facility] Work Phone: Comment on above: Ordered: 02/03/2023 IR XR INJ MYELOGRAM IR XR INJ MY ELOGRAM Radiology Routine 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 Ordered: 12/22/2022 [facility] Work Phone: Comment on above: Ordered: 12/22/2022 OUTSIDE VENDOR CARDI AC OUTPATIENT TELEMETRY OUTSIDE VENDOR CARDIAC OUTPATIENT TELEMETRY Holter Routine Palpitations Ordered: 09/27/2022 [facility] Work Phone: Comment on above: Ordered: 09/27/2022 OUTSIDE VENDOR CARDI AC OUTPATIENT TELEMETRY OUTSIDE VENDOR CARDIAC OUTPATIENT TELEMETRY Holter Routine Paroxysmal atrial fibrillation (HCC) Palpitations Ordered: 11/05/2022 [facility] Work Phone: Comment on above: Ordered: 11/05/2022 [facility] Immunizations Immunization Date Immunization Notes Care Provider Fa constanza 05-26-2023 influenza, injectabl e, quadrivalent, contains preservative Ashwini Matute PA-C Work Phone: [facility] 06-03-2022 influenza, injectabl e, quadrivalent, preservative free Terrie Brown MD Work Phone: [facility] Work Phone: 06-11-2014 influenza virus vaccine, whole virus Ubaldo Moreno MD Work Phone: [facility] 06-11-2014 influenza, seasonal, injectable Terrie Brown MD Work Phone: [facility] Work Phone: 06-11-2014 influenza virus vaccine, unspecified formulation Ashwini Matute PA-C Work Phone: [facility] 01-21-2011 human papilloma viru s vaccine, bivalent Ubaldo Moreno MD Work Phone: [facility] 01-21-2011 HPV, unspecified formulation Terrie Brown MD Work Phone: [facility] Work Phone: 11-27-2010 human papilloma viru s vaccine, bivalent Ubaldo Moreno MD Work Phone: [facility] Payers Date Payer Category Payer Self-pay 2023 Unknown [id number] 2023 Unknown 2023 Unknown [id number] 2023 Medicaid [id number] 2023 Medicaid [id number] 2022 Private Health Insurance [id number] 2022 Private Health Insurance [id number] 2021 Unknown [id number] 1991 Unknown [id number] [id number]. [id number] 1991 Unknown [id number] 2.16. [id number] 1991 Unknown [id number] 2.16. [id number] 1991 Unknown [id number] [id number] 1991 Unknown [id number] 2.16. [id number] 1991 Unknown [id number] 2.16. [id number] Self-pay [id number] Unknown [id number] [id number] [id number] Social History Date Type Detail Facility Start: 12-02-2014 Tobacco smoking status [facility] Tobacco smoking consumption unknown [facility] Start: 08-05-2022 End: 09-27-2022 Alcohol intake Current non-drinker of alcohol (finding) [facility] Start: 1990 Sex Assigned At Not on file [facility] Start: 09-27-2022 Tobacco smoking status [facility] Never smoked tobacco [facility] Start: 09-27-2022 Tobacco use and exposure Smokeless tobacco non-user [facility] Start: 09-27-2022 Tobacco Comment vapes [facility] Start: 01-05-2023 History SDOH Alcohol Frequency 5 [facility] Start: 01-05-2023 History SDOH Alcohol Std Drinks 1 [facility] Start: 01-05-2023 History SDOH Social Connections Phone 2 [facility] Start: 01-05-2023 History SDOH Social Connections Jewish [address] [facility] Start: 01-05-2023 History SDOH Stress 4 [facility] Start: 09-21-2022 End: 01-05-2023 Never smoker Never smoker [facility] Start: 09-21-2022 End: 01-05-2023 Social connection and isolation panel [facility] How often do you att end denominational or restorationism services? Patient refused [facility] Do you belong to any clubs or organizations such as denominational groups, unions, fraternal or athletic groups, or school groups? No [facility] Are you now , , , , never or living with a partner? [facility] How often to you hav e a drink containing alcohol? 4 or more times a week [facility] How many standard dr inks containing alcohol do you have on a typical day? 1 or 2 [facility] How often do you hav e 6 or more drinks on 1 occasion? Never [facility] Do you feel stress - tense, restless, nervous, or anxious, or unable to sleep at night because your mind is troubled all the time - these days [OSQ] Rather much [facility] (I/We) worried titus er (my/our) food would run out before (I/we) got money to buy more. Never true [facility] Start: 1990 Sex Assigned At Female [facility] Start: 05-22-2023 Gender identity Identifies as female gender (finding) [facility] Start: 05-22-2023 Sexual orientation Choose not to disclose [facility] Start: 07-04-2023 End: 07-14-2023 Exposure to SARS-CoV-2 (event) Not sure [facility] Medical Equipment Procedure Code Equipment Code Equipment Origin al Text Equipment Identifier Dates use to inject B- 12 MONTHLY [id number] Start: 02-04-2023 use to DRAW B-12 INJECTION as directed [id number] Start: 02-04-2023 Clinical Notes 07-24-2022 to 09-12-2023 Note Date & Type Note Facility 09-12-2023 Evaluation note Encounter Date Diagnosis Assessment Notes Sep, Lumbar radiculopathy, right (ICD-10 - M54.16) Ms Titus is a new patient to me and presents for low back pain and pain, numbness in her right foot that radiates up. Has significant surgical history of lumbar fusion with scoliosis. [facility] worsing of pain since 2017, was seen by pain managment in which they were unable to place pain stimulator due to scar tissue. [facility] had EMG in [place] by Dr Galvan. I reviewed the CT myelogram from 03/14/2023 [id number] with patient and which shows suggestive pseudomeningocele [...] release of information from medical records and [place] from Dr. Galvan. Will refer for a new EMG as previous one in [place] was greater than 2 years old. Pharmacological management will continue with current medications as prescribed. Will refer patient to aqua therapy at the [facility]. Follow-up in 3 months. Medical decision [...] Sep, Vitamin B deficiency (ICD-10 - E53.9) [employer] Other 11-09-2023 History of Present illness Narrative* [...] then around 2018- 2019 while living in [place] she was seeing pain management who tried caudal injections which did not help. She is also tried multiple medications such as Cymbalta and Lyrica without any relief. She was started on gabapentin which initially did provide relief of her leg painbut now she still has a lot of foot pain. She describes as a burning sensation. She then since moved back to [place] and has been seeing physicians at [facility]. Most of her care is done at [facility]. She was seeing pain management with [...] taking yet. 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 She does not smoke occasionally drinks alcohol [...] L2. Patient had a EMG back in [place] in 2020 which she brought in today which suggested a right L5 radiculopathy A/P: Hue Titus is a 33 y.o. year old female patient with history of scoliosis status post thoracolumbar fusion when she was a teenager who reports persistent right radicular leg pain and numbness. She had EMG done in [place] in 2020 which suggested a right L5 [...] to prepare this document. Terrie Brown MD Patient Access Manager Department of Orthopaedic Surgery [facility] [email or web address] documented in this [facility]Tri[facility] Work Phone: [phone] 157-173610-12-2023 Miscellaneous Notes* Telephone Encounter - Ashwini Matute [...] pended Josh Han MA documented in this encounterHolmes [facility]10-02-2023 Miscellaneous Notes* Telephone Encounter - Altagracia Leroy MA - 06/06/2023 7:19 AM EDT Last ov: 05/26/23 Next ov: 07/07/23 Pharmacy electronically requests the following refill(s) Requested Prescriptions Pending Prescriptions Disp Refills metoprolol tartrate, short acting, (LOPRESSOR) 25 mg tablet [Pharmacy Med Name: METOPROLOL [id number] MG TAB] 60 tablet 2 Sig: take 1 tablet by mouth twice a day Altagracia Leroy MA documented in this encounterHolmes County [facility]09-25-2023 Miscellaneous Notes* Telephone Encounter - Ashwini [...] advise. Lorrie Vargas MA documented in this encounterHolmes County [facility]09-25-2023 Miscellaneous Notes* Telephone Encounter - Teagan [...] pharmacy. Teagan Green MA documented in this encounterHolmes County [facility]09-22-2023 NoteHNO ID: [id number] Author: Jessee Hamilton MD Service: ? Author Type: Physician Type: Progress Notes Filed: 05/28/2023 8:48 AM Note Text: PRIMARY CARE PHYSICIAN: Ashwini Matute [address] [place] [address] REFERRING PHYSICIAN: No referring provider defined for this encounter. CHIEF COMPLAINT: Abnormal Holter HISTORY OF PRESENT ILLNESS: From my office notes on September 27, 2022 Probably paroxysmal atrial fibrillation, with spontaneous conversion into normal sinus rhythm. [id number] based on the information we have [...] disorder) Ovarian cyst PAF (paroxysmal atrial fibrillation) ([facility]) 07/2022 follows with cardiology Scoliosis SVT, lower extremity ([facility]) 2018 ASA only no anticoagulants PAST SURGICAL [...] rhythm with intermittent s (more content not included)...[facility]09-22-2023 Instructions* Patient Instructions* Jessee Hamilton MD - 05/27/2023 1:54 PM EDT Images from the original note were not included. [email or web address] documented in this encounterHolmes County [facility]09-22-2023 History of Present illness Narrative* Jessee Hamitlon MD - 05/27/2023 1:30 PM EDT PRIMARY CARE PHYSICIAN: Ashwini Matute [address] [place], [place] [id number] REFERRING PHYSICIAN: No referring provider defined for this encounter. CHIEF COMPLAINT: Abnormal Holter HISTORY OF PRESENT ILLNESS: From my office notes on September 27, 2022 Probably paroxysmal atrial fibrillation, with spontaneous conversion into normal sinus rhythm. [id number] based on the information we have [...] disorder) Ovarian cyst PAF (paroxysmal atrial fibrillation) ([facility]) 07/2022 follows with cardiology Scoliosis SVT, lower [...] significant arrhythmia. The patient will get a [employer] mobile and send me the tracings if necessary. I appreciate the opportunity of partaking in the care of Hue Titus and look forward to following her along with you in the future. CONTACT INFORMATION: Jessee Hamilton M.D. Staff Rn [facility] [place] [address] [facility] [address] documented in this encounterHolmes County [facility]09-21-2023 NoteHNO ID: [id number] Author: Ashwini Matute PA-C Service: ? Author Type: Physician Web Press Operator Helper Offset Type: Progress Notes Filed: 05/26/2023 3:00 PM Note Text: This note was created using [employer]il[employer]. 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 [...] disorder) Ovarian cyst PAF (paroxysmal atrial fibrillation) ([facility]) 07/2022 follows with cardiology Scoliosis SVT, lower extremity ([facility]) 2019 ASA only no anticoagulants Past Surgical [...] (5' 7 ) Wt (more content not included)...[facility]09-21-2023 History of Present illness Narrative* Ashwini Matute PA-C - 05/26/2023 2:28 PM EDT This note was created using [employer]. 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 [...] disorder) Ovarian cyst PAF (paroxysmal atrial fibrillation) ([facility]) 07/2022 follows with cardiology Scoliosis SVT, lower extremity ([facility]) 2018 ASA only no anticoagulants Past Surgical [...] mL injection (DEFINITY), , INTRAVENOUS, DIRECTED PRN, Corky, Jessee A, MD sodium chloride 0.9 % (flush) 10 mL (BD POSIFLUSH), 10 mL, INTRAVENOUS, DIRECTED PRNCorky Raul A, MD Allergies: ALLERGIES No Known Allergies Vitals: [...] filled. No suspiciousactivity was identified. 05/26/2023 by Ashwini Matute PA-C - DEXTROAMPHETAMINE-AMPHETAMINE 10 MG TABLET - DEXTROAMPHETAMINE-AMPHETAMINE [...] FLUZONE) Ashwini Matute PA-C documented in this encounterHolmes County [facility]09-21-2023 Instructions* Patient Instructions* Lorrie Vargas MA - 05/26/2023 1:23 PM EDT [facility] LAB FACTS Please visit our lab at least 3-5 days before your scheduled appointment to have your lab work drawn, if lab work is ordered. This will allow us the ability to review your lab work results with you during your scheduled visit. [facility] LAB HOURS: Lab is open Tuesday - Tuesday from 6:30am to 5pm and open 8am -12pm on Saturdays. [facility] LAB HOURS: Tuesday- 7:30am to 5:30pm. Fridays [...] medicine, or pediatrics at any of our [email or web address]] locations and main campus. documented in this encounterHolmes County [facility]09-18-2023 Miscellaneous Notes* Telephone Encounter - Ashwini [...] by Ashwini Matute PA-C documented in this encounterHolmes County [facility]09-14-2023 Miscellaneous Notes* Telephone Encounter - Ashwini [...] 30 days. Authorizing Provider: ASHWINI MATUTE PA-Cr PDMP website checked and validated. All prescriptions [...] pharmacy. Teagan Green MA documented in this encounterHolmes County [facility]09-13-2023 Miscellaneous Notes* Telephone Encounter - Ashwini Matute PA-C - 05/18/2023 12:38 PM EDT The following approved medication requests have been transmitted electronically. Requested Prescriptions Signed Prescriptions Disp Refills gabapentin (NEURONTIN) 600 mg tablet 180 tablet 0 Sig: Take 2 tablets by mouth three times daily for 30 days. Authorizing Provider: ASHWINI MATUTE PA-C [facility] website checked and validated. All prescriptions have been APPROPRIATELY filled. No suspiciousactivity was identified. 05/18/2023 by Ashwini Matute PA-C * Telephone Encounter - Altagracia Leroy MA - 05/18/2023 11:25 AM EDT Last ov: 02/22/23 Next ov: 05/26/23 Patient requests via Electronic Payment and Services (EPS)hart refills as follows: Requested Prescriptions Pending Prescriptions Disp Refills gabapentin (NEURONTIN) 600 mg tablet 180 tablet 0 Sig: Take 2 tablets by mouth three times daily for 30 days. Please review and advise. Altagracia Leroy MA documented in this encounterHolmes County [facility]09-11-2023 Miscellaneous Notes* Telephone Encounter - Lorrie [...] advise. Lorrie Vargas MA documented in this encounterHolmes County [facility]08-24-2023 Miscellaneous Notes* Telephone Encounter - Ashwini [...] by Ashwini Matute PA-C documented in this encounterHolmes County [facility]08-23-2023 Miscellaneous Notes* Telephone Encounter - Ashwini [...] advise. Ashia Thrasher LPN documented in this encounterHolmes County [facility]08-17-2023 Miscellaneous Notes* Telephone Encounter - Ashwini [...] by Ashwini Matute PA-C documented in this encounterHolmes County [facility]08-08-2023 Miscellaneous Notes* Telephone Encounter - Kelly Dasilva MA - 04/12/2023 2:55 PM EDT Letter is in brown box for patient to picker machine operator documented in this encounterHolmes County [facility]07-27-2023 Miscellaneous Notes* Telephone Encounter - Chitra Burnett PA-C - 03/31/2023 11:46 AM EDT OARRS reviewed. 30 day supply Rx sent. Will defer additional refills to PCP. I know I had previously discussed with patient ensuring she determines who would maintain Rx while in [place]. Has been filled by provider in [place]. [...] pharmacy. Teagan Green MA documented in this encounterHolmes County [facility]07-19-2023 Miscellaneous Notes* Telephone Encounter - Aria [...] advise. Radha Armstrong MA documented in this encounterHolmes County [facility]07-18-2023 Miscellaneous Notes* Telephone Encounter - Kristie [...] 03/22/2023 4:18 PM EDT Patient requests via Electronic Payment and Services (EPS)hart refills as follows: Requested Prescriptions Pending Prescriptions Disp Refills ADDERALL XR 30 mg biphasic capsule 30 capsule 0 Sig: Take 1 capsule by mouth once daily for 30 days. Please review and advise. Altagracia Leroy MA documented in this encounterHolmes County [facility]07-18-2023 Miscellaneous Notes* Telephone Encounter - Lorrie Vargas MA - 03/22/2023 1:19 PM EDT Patient phones requesting refills as follows: Requested Prescriptions Pending Prescriptions Disp Refills ADDERALL XR 30 mg biphasic capsule 30 capsule 0 Sig: Take 1 capsule by mouth once daily for 30 days. Please review and advise. Lorrie Vargas MA documented in this encounterHolmes County [facility]07-11-2023 NoteClinical Event: Clinical Event Note: TopicLP 03/14/23 - Post-procedure phone call Details After the patient's myelogram, the patient inadvertently administered her prescribed SECURITY FLEX OFFICER acting agents, which she was supposed to [...] Note Last Updated: 18-Mar-2023 08:56 by Dina Dennis)[facility] 2023 Miscellaneous Notes* Telephone Encounter [...] pharmacy. Altagracia Leroy MA documented in this encounterHolmes County [facility]07-10-2023 NotePre-procedure Verification and Time Out: Pre-Procedure [...] thoracolumbar fusion Procedure performed by: Dr. Dennis Web Press Operator Helper Offset(s): none Dr. Ramirez Estimated Blood Loss (mL): [...] Completion Last Updated: 15-Mar-2023 13:22 by Dina Dennis)[facility] 03-03-2023 NoteHNO ID: [id number] Author: Aria Izquierdo PA-C Service: ? Author Type: Physician Web Press Operator Helper Offset Type: Procedures Filed: 03/03/2023 12:16 PM Note Text: IUD INSERTION PROCEDURE Date/Time: 03/03/2023 12:08 PM Performed by: Aria Izquierdo PA-C Authorized by: Aria Izquierdo PA-C Indication: contraception Diagnosis: (Z30.430) Encounter for IUD insertion (primary encounter diagnosis) Patient's last menstrual period was 02/13/2023 (approximate). Informed Consent Consent Obtained: Written [place] Protocol A moment to CARE was completed. [...] equipment, possible retained foreign bodies accounted for. [facility]06[facility] Miscellaneous Notes* Telephone Encounter - Mary Crowe PA-C - 02/25/2023 9:06 AM EDT The following approved medication requests have been transmitted electronically. Requested Prescriptions Signed Prescriptions Disp Refills miSOPROStol (CYTOTEC) 200 mcg tablet 2 tablet 0 Si tablet as directed for 2 doses. Take by mouth 2 days prior to appt, and the second pill 8-10hours prior to QUENCHER OPERATOR appt for cervical dilation. Mary Crowe PA-C [...] and the second pill 8-10hours prior to QUENCHER OPERATOR appt for cervical dilation. documented in this encounterHolmes County [facility]06-20-2023 NoteHNO ID: [id number] Author: Ashwini Matute PA-C Service: ? Author Type: Physician Web Press Operator Helper Offset Type: Progress Notes Filed: 02/22/2023 3:32 PM Note Text: This note was created using Solar Junctionriter. Mercedes Titus is a 32 year old female. [...] pain. She has started seeing a new equal opportunity specialist at . Past Medical History: PAST MEDICAL HISTORY Diagnosis Date ADHD (attention deficit hyperactivity disorder) Ovarian cyst PAF (paroxysmal atrial fibrillation) ([facility]) 07/2022 follows with cardiology Scoliosis SVT, lower [...] no longer seeing her previous PCP in [place]. 3. Vitamin D deficiency - ICD9: 268.9, ICD10: E55.9 Start high dose vitamin D once weekly. Rx sent in. [facility]06-20-2023 History of Present illness Narrative* Ashwini Matute PA-C - 02/22/2023 3:26 PM EDT This note was created using Flossonic. Subjective Hue Titus is a 32 year [...] pain. She has started seeing a new equal opportunity specialist at . Past Medical History: PAST MEDICAL HISTORY Diagnosis Date ADHD (attention deficit hyperactivity disorder) Ovarian cyst PAF (paroxysmal atrial fibrillation) ([facility]) 07/2022 follows with cardiology Scoliosis SVT, lower extremity ([facility]) 2018 ASA only no anticoagulants Past Surgical [...] mL injection (DEFINITY), , INTRAVENOUS, DIRECTED PRN, Jesese Hamilton MD sodium chloride 0.9 % (flush) [...] no longer seeing her previous PCP in [place]. 3. Vitamin D deficiency - ICD9: 268.9, ICD10: E55.9 Start high dose vitamin D once weekly. Rx sent in. Ashwini Matute PA-C documented in this encounterHolmes County [facility]06-15-2023 Miscellaneous Notes* Telephone Encounter - Ashwini [...] ended her membership with her provider in [place]. Patient thought Jenny was going totake over [...] 02/10/2023 4:19 PM EDT Last OV: 02/08/23 (Mizanin) 01/11/23 (Amy) Next OV: 02/22/23 Patient's request for medication is as follows: Requested Prescriptions Pending Prescriptions Disp Refills dextroamphetamine-amphetamine (ADDERALL) 10 mg tablet Sig: Take 1 tablet by mouth every afternoon. ADDERALL XR 30 mg 24 hr capsule Sig: Take 1 capsule by mouth once daily. Please approve the above prescription(s) to electronically send to pharmacy. Teagan Green MA documented in this encounterHolmes County [facility] [facility] NoteHNO ID: [id number] Author: Bindu Tirado RT(R) Service: ? Author Type: Technologist Type: Progress [...] PERIPHERAL IV DATA: Not applicable SIGNED BY: Bnidu Tirado RT(R) February 08, 2023 4:08 [facility]06-06-2023 NoteHNO ID: [id number] Author: Chitra Burnett PA-C Service: ? Author Type: Physician Web Press Operator Helper Offset Type: Progress Notes Filed: 02/08/2023 4:12 PM [...] spine ordered - has not yet called [facility] to schedule. She's concerned if something may [...] - XR THORACIC GENERAL 3V AP/LAT/SWIMMERS [facility]06-06-2023 History of Present illness Narrative* Bindu Tirado, RT(R) - 02/08/2023 4:08 PM EDT Radiology Service [...] 08, 2023 4:08 PM documented in this encounterHolmes County [facility]06-[facility] History of Present illness Narrative* Chitra [...] spine ordered - has not yet called [facility] to schedule. She's concerned if something may [...] AP/LAT/SWIMMERS Chitra Burnett PA-C documented in this encounterHolmes County [facility]06-02-2023 NoteHNO ID: [id number] Author: Chitra Burnett PA-C Service: ? Author Type: Physician Web Press Operator Helper Offset Type: Progress Notes Filed: 02/04/2023 12:34 PM [...] yet. 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 She's currently followed by Dr Dennis for pain management and Spine. She reports Dr Dennis told her there's nothing additional he can do for her so she didn't think she would need to follow up. She had a CT Myelogram ordered by [facility] Spine - but it was scheduled in [place] as a traditional CT so it was [...] the Rx since she now lives in [place] Review of Systems All other systems reviewed [...] PCP out of state. Pt will call [facility] CT scheduling to set up the CT myelogram appropriately. [facility]06-02-2023 History of Present illness Narrative* [...] yet. 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 She's currently followed by Dr Dennis for pain management and Spine. She reports Dr Dennis told her there's nothing additional he can do for her so she didn't think she would need to follow up. She hada CT Myelogram ordered by [facility] Spine - but it was scheduled in [place] as a traditional CT so it was [...] the Rx since she now lives in [place] Review of Systems All other systems reviewed [...] PCP out of state. Pt will call [facility] CT scheduling to set up the CT myelogram appropriately. Chitra Burnett PA-C documented in this encounterHolmes County [facility]06-01-2023 NoteHNO ID: [id number] Author: Aria Izquierdo PA-C Service: ? Author Type: Physician Web Press Operator Helper Offset Type: Progress Notes Filed: 02/03/2023 4:11 PM [...] disorder) Ovarian cyst PAF (paroxysmal atrial fibrillation) ([facility]) 07/2022 follows with cardiology Scoliosis SVT, lower [...] the second pill 8-10 hours prior to QUENCHER OPERATOR appt for cervical dilation. metoprolol tartrate, short [...] of this record were documented by the Solar Installation Technician. I, Aria Izquierdo, have reviewed this information as documented for accuracy and performed all elements of history taking, and edited the record as necessary. ROS: SEE HPI PE: GENERAL: well-appearing, in no acute distress LUNGS: Normal inspiratory effort QUENCHER OPERATOR: deferred NEURO: Awake, alert and oriented A/P: [...] the date of the service which included spuc-um-pqqw patient care, completing clinical documentation, counseling and educating the patient/family/caregiver, and ordering medications, tests, or procedures.[facility]06-01-[facility] History of Present illness Narrative* Aria [...] disorder) Ovarian cyst PAF (paroxysmal atrial fibrillation) ([facility]) 07/2022 follows with cardiology Scoliosis SVT, lower extremity ([facility]) 2018 ASA only no anticoagulants PAST SURGICAL [...] the second pill 8-10 hours prior to QUENCHER OPERATOR appt for cervical dilation. metoprolol tartrate, short [...] of this record were documented by the Solar Installation Technician. I, Aria Izquierdo, have reviewed this information as documented for accuracy and performed all elements of history taking, and editedthe record as necessary. ROS: SEE HPI PE: GENERAL: well-appearing, in no acute distress LUNGS: Normal inspiratory effort QUENCHER OPERATOR: deferred NEURO: Awake, alert and oriented A/P: [...] the date of the service which included pldw-qf-esyl patient care, completing clinical documentation, counseling and educating the patient/family/caregiver, and ordering medications, tests, or procedures. documented in this encounterHolmes County [facility]05-11-2023 NoteHNO ID: [id number] Author: Ashwini Matute PA-C Service: ? Author Type: Physician Web Press Operator Helper Offset Type: Progress Notes Filed: 01/13/2023 2:09 PM Note Text: This note was created using Mobilitecter. Subjective Hue Titus is a 32 year old female. HPI Hue Titus is a 32 year old female who [facility]. She has a history of juvenile scoliosis and is currently being treated by both equal opportunity specialist and pain management. She is on both gabapentin and lyrica for her chronic back pain and recently failed an attempted spinal cord stimulator procedure. She is awaiting additional CT imaging to determine next course of treatment. 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 She recently moved back to the area after living in [place] for over 5 yrs. She complains of [...] (attention deficit hyperactivity disorder) DVT, lower extremity ([facility]) 2018 PAF (paroxysmal atrial fibrillation) ([facility]) 07/2022 follows with cardiology Scoliosis Past Surgical [...] kg (119 lb) LMP (more content not included)...[facility]05-09-2023 Miscellaneous Notes * Telephone Encounter - SALUD Reeves - 01/11/2023 3:22 PM EDT Behavioral Health Social Work Progress Note Patient identified for [facility] from: PCP Reason for referral: [facility] Behavioral Health Resources: Psychology - talk therapy [facility] encounter type: Telephone Encounter, MyChart Message Attempts to Outreach: 1 attempt Referral made: Psychology - External Psychology-External referral type: Therapy Reason for external referral: Patient seeking buttermaker helper support Final Disposition: Resources given Patient Discharged?: Yes Patient reported that caregiver was able to meet their needs today?: Yes [facility] consult received for anxiety and depression. [facility] placed telephone call at the request of the PCP to discuss behavioral health needs and provide referrals for outpatient support. Patient states she is looking to establish with a therapy provider. Would like telephone number to schedule within [facility] and externally. Will send the following: [facility] Psychiatry and Counseling Central Scheduling Call Center [phone] [facility] ([place]) [phone] [facility] ([place]) Counseling only [phone] [facility] ([place]) Counseling only [phone] [facility] ([place]) Counseling only [phone] [facility] ([place]) [phone] Extension: [phone] [facility] ([place]) Counseling only [phone] [facility] [place] ([place]) Counseling only [phone] [facility] ([place]) Counseling only [phone] [facility] ([place]) [phone] [facility] ([place]) [phone] [facility] ([place]) Counseling only [phone] [facility] [place] ([place]) Counseling only [phone] [facility] ([place]) Counseling only [phone] [facility] ([place]/[facility]) [phone] [facility] ([place]) Counseling only [phone] [facility] [place] ([place]) Counseling only [phone] [place] [facility] ([place]) Counseling only [phone] [facility] [phone] [facility] ([place]) Counseling only [phone] [facility] ([place]) Counseling only [phone] [facility] ([place]) Counseling only [phone] [facility] ([place]) Counseling only [phone] SALUD Reeves, [facility]- January 11, 2023 documented in this encounterHolmes County [facility]04-28-2023 Miscellaneous Notes* Telephone Encounter - Ivanna [...] 31, 2022 3:35 PM documented in this encounterHolmes County [facility]04-19-2023 History of Present illness Narrative* Dorota Conn, RT(R) - 12/22/2022 1:00 PM EDT Radiology [...] 22, 2022 1:26 PM documented in this encounterHolmes County [facility]04-19-2023 NoteHNO ID: [id number] Author: Marco Slade, DO Service: ? Author Type: Physician Type: Progress Notes Filed: 12/26/2022 9:50 PM Note Text: [facility] [place] [facility] - Medical Spine Initial [...] now seeking neurosurgical evaluation for SCS at [facility]. Denies bowel/bladder incontinence or saddle anesthesia. The [...] surgery: -05/16/06 Dr. 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 Manan Garcia at [facility]: T2 to L2 PSF for scoliosis Previously treated by: -Pain Management Dr. Jolly Dennis. -Pain Management Dr. Miguel Angel Pinedo, [facility] in [place] -NSGY Dr. Raymond Sheikh, Neurological Services [facility] in [place] - Rx PT on 02/2022 -Ortho Spine Surgery Dr. Rico Mustafa, [facility] in [place] -NSGY Dr. Shawn Hardin 07/24/21 - no signs of radiculopathy on imaging/EMG, did not recommend surgery; rec SNRB vs SCS. -NSGY Dr. Miguel Angel Allison at [facility] 2005. -NSGY Dr. Manan Garcia at [facility] 2004 PMH: PAF - previously on [...] Illicit drugs: no Personal life: Moved to [place] in 2014 then back to [place] from [place] in 2021. 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 [facility] [place] [facility] - Medical Spine Initial [...] is now seeking neurosurgicalevaluation for SCS at [facility]. Denies bowel/bladder incontinence or saddle anesthesia. The [...] surgery: -05/16/06 Dr. 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 Manan Garcia at [facility]: T2 to L2 PSF for scoliosis Previously treated by: -Pain Management Dr. Jolly Dennis. -Pain Management Dr. Miguel Angel Pinedo, [facility] in [place] -NSGY Dr. Raymond Sheikh, Neurological Services [facility] in [place] - Rx PT on 02/2022 -Ortho Spine Surgery Dr. Rico Mustafa, [facility] in [place] -NSGY Dr. Shawn Hardin 07/24/21 - no signs of radiculopathy on imaging/EMG, did not recommend surgery; rec SNRB vs SCS. -NSGY Dr. Miguel Angel Allison at [facility] 2005. -NSGY Dr. Manan Garcia at [facility] 2004 PMH: PAF - previously on [...] Illicit drugs: no Personal life: Moved to [place] in 2014 then back to [place] from [place] in 2021. 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 SENSORY: sensation decreased to light touch [...] indicated. 01/14/2022 MRI lumbar spine without contrast, [place], [place]: Leftward lumbar curvature. No acute marrow [...] 05/06/2021 MRI lumbar spine without contrast, report, [place], [place]: There has been prior posterior spinal [...] may be of benefit. 03/16/2021 EMG/NCS RLE, [facility] [place], [place], Dr. Don Bailon MD: Mildly abnormal [...] tested) 06/16/2020 CT lumbar spine without contrast, [place], [place]: Thoracolumbar fusion. Bilateral rods and pedicle [...] the sacroiliac joints. 06/06/2020 XR lumbar AP/Flex/Ext, [place], [place]: There is partially visualized posterior thoracolumbar fusion [...] this time. Would recommend referral to the Center for pain recovery program if she is [...] which included preparing to see the patient, [id number] patient care, completing clinical documentation, obtaining and/or reviewing separately obtained history, performing a medically appropriate examination, counseling and educating the pat ient/family/caregiver, ordering medications, tests, or procedures, independently interpreting results (not separately reported), and communicating results to the patient/family/caregiver. SIGNATURE: Marco Slade DO PATIENT NAME: Hue Aguilar DATE: December 22, 2022 TIME: 8:17 AM documented in this encounterHolmes County [facility]03-03-2023 NoteHNO ID: [id number] Author: Humberto Herndon MD Service: ? Author Type: Physician Type: Procedures Filed: 12/14/2022 1:03 PM Note Text: [place] [id number] NAME: HUE AGUILAR : 1990 ENROLLMENT: 11/08/2022 - 12/07/2022 Sinus rhythm with intermittent sinus tachycardia. Reviewed, Edited and Signed by Humberto Herndon MD December 14, 2022 1:02 [facility]03-03-2023 Miscellaneous Notes* Telephone Encounter - Yo Adames LPN - 11/05/2022 3:09 PM EST Called patient to inform her that a new order was placed for the 30 day [employer]. Called [employer] rep(Akash Kirby) to help expedite the order. Yo Adames LPN documented in this encounterHolmes County [facility]01-23-2023 Nurse Note* Carlyn Weber LPN - 09/27/2022 9:31 AM EST Resolution Rep present: For cardiology exam with Dr Corky Weber LPN documented in this encounterHolmes County [facility]01-23-2023 Instructions* Patient Instructions* Jessee Hamilton MD - 09/27/2022 9:30 AM EST Please, follow up with me after the echocardiogram and event monitor to discuss results. Please, see me as scheduled, or sooner should symptoms appear or worsen. documented in this encounterHolmes County [facility]01-23-2023 History of Present illness Narrative* Jessee [...] with spontaneous conversion into normal sinus rhythm. [id number] 0 based on the information we have [...] future. CONTACT INFORMATION: Jessee Hamilton M.D. Staff Rn [facility] [place] [address] [facility] [place] [address] documented in this encounterHolmes County [facility]01-11-2023 Miscellaneous Notes* Telephone Encounter - Ave Antonio MA - 09/15/2022 1:17 PM EST Received OV notes from [facility], requesting pt be scheduled as soon as possible. Pt already scheduled with Dr. Hamilton 09/27/2022. Sent for scanning. documented in this encounterHolmes County [facility] Hospital11-19-2022 NoteHNO ID: [id number] Author: Interface Note Service: ? Author Type: ? Type: Progress Notes Filed: 07/24/2022 2:42 AM Note Text: Epic Scheduled Downtime: 07/24/2022 1:00:00 AM to 07/24/2022 2:26:04 [id number] NoteHNO ID: [id number] Author: RT Michelle(R) Service: Radiology Author Type: Assembler Tubing Type: Progress Notes Filed: 07/23/2022 11:18 PM [...] IV DATA: Not applicable SIGNED BY: RT Michelle(R) July 23, 2022 11:18 [id number] NoteCOVID RESULT: SARS-CoV-2 (Agent of COVID-19) Not Detected by RT-PCR or equivalent method. This test has been authorized by FDA under an Emergency Use Authorization (EUA). INFLUENZA A PCR: Negative for Influenza A by RT-PCR INFLUENZA B PCR: Negative for Influenza B by RT-PCR RSV PCR: Negative for Respiratory Syncytial Virus (RSV) by PCRon HospitalComment on above:Performed By: #### [id number] ####[facility] LABORATORYCLIA [id number] [place] [address] [facility] Evaluation note* Diagnosis Palpitations- Primary Paroxysmal atrial fibrillation (HCC) Atrial fibrillation [facility]* Diagnosis Palpitations- Primary Paroxysmal atrial fibrillation (HCC) Atrial fibrillation [facility]* Diagnosis Chronic bilateral low back pain with right-sided sciatica- Primary 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), idiopathic Arthrodesis status Paresthesia of right foot Disturbance of skin sensation documented [facility] this encounter [facility]* Diagnosis Counseling for control regarding intrauterine device (IUD) documented in this encounter [facility]* Diagnosis Neuropathy- Primary Mononeuritis of unspecified site [facility]* Diagnosis Upper back pain on right side- Primary Pain in thoracic spine documented in this encounter [facility]* Diagnosis Attention deficit hyperactivity disorder (ADHD), unspecified ADHD type- Primary documented in this encounter [facility]* Diagnosis Mild episode of recurrent major depressive disorder (HCC)- Primary Attention deficit hyperactivity disorder (ADHD), unspecified ADHD type Vitamin D deficiency Unspecified vitamin D deficiency documented in this encounter [facility]* Diagnosis 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), idiopathic Attention deficit hyperactivity disorder (ADHD), unspecified ADHD type Neuropathy Mononeuritis of unspecified site documented in this encounter [facility]* Diagnosis Attention deficit hyperactivity disorder (ADHD), unspecified ADHD type documented in this encounter [facility]* Diagnosis Attention deficit hyperactivity disorder (ADHD), unspecified ADHD type [facility]* Diagnosis Attention deficit hyperactivity disorder (ADHD), unspecified ADHD type- Primary documented in this encounter [facility] note* Diagnosis Attention deficit hyperactivity disorder (ADHD), unspecified ADHD type documented in this encounter [facility] note* Diagnosis 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), idiopathic Neuropathy Mononeuritis of unspecified site documented in this encounter [facility] note* Diagnosis 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), idiopathic Neuropathy Mononeuritis of unspecified site documented in this encounter [facility] note* Diagnosis Attention deficit hyperactivity disorder (ADHD), unspecified ADHD type documented in this encounter [facility] note* Diagnosis Attention deficit hyperactivity disorder (ADHD), unspecified ADHD type [facility]* Diagnosis Moderate episode of recurrent major depressive disorder (HCC)- Primary Attention deficit hyperactivity disorder (ADHD), unspecified ADHD type Alcohol abuse Alcohol abuse, unspecified 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), idiopathic Paroxysmal atrial fibrillation (HCC) Atrial fibrillation Neuropathy Mononeuritis of unspecified site Encounter for immunization Need for other specified prophylactic vaccination against single bacterial disease documented in this encounter [facility] note* Diagnosis Paroxysmal atrial fibrillation (HCC)- Primary Atrial fibrillation Palpitations documented in this encounter [facility] note* Diagnosis 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), idiopathic Neuropathy Mononeuritis of unspecified site documented [facility]* Diagnosis 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), idiopathic Neuropathy Mononeuritis of unspecified site documented [facility]* Diagnosis 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), 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 status documented [facility] this [facility]* Diagnosis Neuropathy- Primary Mononeuritis of unspecified site Lumbar radiculopathy Thoracic or lumbosacral neuritis or radiculitis, unspecified documented in this encounter [facility] Work Phone: Evaluation note* Diagnosis Low back pain, unspecified Radiculopathy, lumbar region Thoracic or lumbosacral neuritis or radiculitis, unspecified Arthrodesis status documented in this encounter [facility] Work Phone: Evaluation noteNo assessment information available [facility] Work Phone: History general Narrative - Reported* Type Description Date Medical History alcoholism Medical History migraine headache Medical History chronic depression Surgical History scoliosis repair Hospitalization History see above motify Other History of Present illness NarrativeTried to call patient to remind her to get labs before her CT myelogram. Called the numbers listed in EMR. The cell phone number listed is the wrong number and the number listed as home did not go through.[facility] Work Phone: Reason for referral (narrative)* Outpatient Procedure (Routine) - Pending Review Specialty Diagnoses / Procedures Referred By Edy copeland Referred To Contact [facility] Diagnoses Palpitations Procedures ECHO ECHO TTHRC R-T 2D W/WOM-MODE COMPL SPEC&COLR D Jessee Hamilton MD [address] [place] [address] [facility] [address] [address] Referral ID Status Reason Start Date Expiration Date Visits Requested Visits Authorized [id number] Pending Review Auto-Generat ed Referral 09/27/2022 09/27/2023 1 1 * Outpatient Procedure (Routine) - Closed Specialty Diagnoses / Procedures Referred By Contluigi copeland Referred To Contact [facility] Diagnoses Palpitations Procedures ECG COMPLETE ECG ROUTINE ECG W/LEAST 12 LDS W/I&R Jessee Hamilton MD [address] [place] [address] [facility] [place] [place] [address] Referral ID Status Reason Start Date Expiration Date V isits Requested Visits Authorized [id number] Closed Auto-Generate d Referral 09/27/2022 09/27/2023 1 1 [facility] for referral (narrative)* Diagnostic Procedure Only (Routine) - Closed Specialty Diagnoses / Procedures Referred By Contac t Referred To Contact XR IMAGING Diagnoses 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 Procedures XR SCOLIOSIS PA STAND/LAT 2V RADEX ENTIR THRC LMBR CRV SAC SPI W/SKULL 2/3 VW Marco Slade DO [address] [place] [address] Xr Imaging Referral ID Status Reason Start Date Expiration Date V isits Requested Visits Authorized [id number] Closed Auto-Generate d Referral 12/22/2022 01/21/2024 1 1 * Consult, Test, Treat (Routine) - Pending Review Specialty Diagnoses / Procedures Referred By Contac t Referred To Contact Neurosurgery Diagnoses 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 Procedures CONSULT TO NEUROSURGERY OFFICE/OUTPATIENT [facility] MDM 60-74 MINUTES Marco Slade DO [address] [place] [address] Referral ID Status Reason Start Date Expiration Date Visits Requested Visits Authorized [id number] Pending Review PCP Requested Referral 12/22/2022 12/22/2023 1 1 * Physical Therapy (Routine) - Pending Review Specialty Diagnoses / Procedures Referred By Contac t Referred To Contact [facility] Diagnoses 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 Procedures CONSULT TO PHYSICAL THERAPY PHYSICAL THERAPY EVALUATION HIGH COMPLEX 45 MINS Marco Slade DO [address] [place] [address] [facility] [place] [address] [place] [address] Referral ID Status Reason Start Date Expiration Date Visits Requested Visits Authorized [id number] Pending Review Auto-Generat ed Referral 12/22/2022 12/22/2023 1 1 [facility] for referral (narrative)* Outpatient Procedure (Routine) - Pending Review Specialty Diagnoses / Procedures Referred By Contac t Referred To Contact [facility] Diagnoses Counseling for control regarding intrauterine device (IUD) Procedures INSERT INTRAUTERINE DEVICE LEVONORGESTREL IU 52MG 5 YR INSERT INTRAUTERINE DEVICE Aria Izquierdo PA-C [address] [place] [address] [address] Referral ID Status Reason Start Date Expiration Date Visits Requested Visits Authorized [id number] Pending Review Auto-Generat ed Referral 02/03/2023 02/03/2024 1 1 [facility] for referral (narrative)* Diagnostic Procedure Only (Urgent) - Closed Specialty Diagnoses / Procedures Referred By Contac t Referred To Contact XR IMAGING Diagnoses Upper back pain on right side Procedures XR THORACIC GENERAL 3V AP/LAT/SWIMMERS RADEX SPINE THORACIC 3 VIEWS Chitra Burnett PA-C [address] [place] [address] Xr Imaging Referral ID Status Reason Start Date Expiration Date V isits Requested Visits Authorized [id number] Closed Auto-Generate d Referral 02/08/2023 03/09/2024 1 1 * Diagnostic Procedure Only (Urgent) - Closed Specialty Diagnoses / Procedures Referred By Contac t Referred To Contact XR IMAGING Diagnoses Upper back pain on right side Procedures XR SCAPULA 2V AP/LAT RIGHT RADEX SCAPULA COMPLETE Chitra Burnett PA-C [address] [facility] [place] [address] Xr Imaging Referral ID Status Reason Start Date Expiration Date V isits Requested Visits Authorized [id number] Closed Auto-Generate d Referral 02/08/2023 03/09/2024 1 1 [facility] for referral (narrative)* Diagnostic Procedure Only (Routine) - Closed Specialty Diagnoses / Procedures Referred By Contac t Referred To Contact XR IMAGING Diagnoses 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 Procedures XR SCOLIOSIS PA STAND/LAT 2V RADEX ENTIR THRC LMBR CRV SAC SPI W/SKULL 2/3 Marco Sandoval DO [address] [place] [address] Xr Imaging [place] [address] Referral ID Status Reason Start Date Expiration Date V isits Requested Visits Authorized [id number] Closed Auto-Generate d Referral 12/22/2022 01/21/2024 1 1 [facility] for referral (narrative)* Consultation (Routine) - Authorized Specialty Diagnoses / Procedures Referred By Contac t Referred To Contact Pain Medicine Diagnoses [place] [address] [facility] Department of Orthopedics [address] [place] PhD [address] [place] [address] Referral ID Status Reason Start Date Expiration Date Visits Requested Visits Authorized [id number] Authorized Specialty Services Required 07/14/2023 07/13/2024 1 1 * Consultation (Routine) - Authorized Specialty Diagnoses / Procedures Referred By Contac t Referred To Contact Neurology [place] [address] Department of Orthopedics [address] Referral ID Status Reason Start Date Expiration Date Visits Requested Visits Authorized [id number] Authorized Specialty Services Required 07/14/2023 07/13/2024 1 1 [facility] Work Phone: Reason for visit Narrative* Diagnostic Procedure Only (Routine) - Closed Specialty Diagnoses / Procedures Referred By Contac t Referred To Contact XR IMAGING Diagnoses 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 Procedures XR SCOLIOSIS PA STAND/LAT 2V RADEX ENTIR THRC LMBR CRV SAC SPI W/SKULL 2/3 VW Marco Slade, DO [address] [place] [id number] Xr Imaging [place] [address] Referral ID Status Reason Start Date Expiration Date V isits Requested Visits Authorized [id number] Closed Auto-Generate d Referral 12/22/2022 01/21/2024 1 1 [facility] for visit NarrativeSELF REFERRAL PINCHED NERVE LOW BACK motify Other Summary Purpose Family History No Family [...] Referred By Edy t Referred To Contact Diagnoses Attention deficit hyperactivity disorder (ADHD), unspecified ADHD type Ashwini Matute PA-C [address] [place] [address] Referral ID Status Reason Start Date Expiration Date Visits Re quested Visits Authorized [id number] Closed 1 1 Referral ID Status Reason Start Date Expiration Date Visits Re quested Visits Authorized [id number] Closed 1 1 Referral ID Status Reason Start Date Expiration Date Visits Re quested Visits Authorized [id number] Closed 1 1 Referral ID Status Reason Start Date Expiration Date V isits Requested Visits Authorized [id number] Pending Review 1 1 Referral ID Status Reason Start Date Expiration Date Visits Re quested Visits Authorized [id number] Closed 1 1 Referral ID Status Reason Start Date Expiration Date Visits Re quested Visits Authorized [id number] Closed 1 1 Referral ID Status Reason Start Date Expiration Date Visits Re quested Visits Authorized [id number] Closed 1 1 Reason Aqua therapy - evalu ate and treat Diagnosis 1 Lumbar radiculopathy , right (M54.16) Referral Organization [facility] Ne urosurgery Referring Provider First Name Lorie Referring Provider Last Name Cary Referring Provider Specialty Nurse Lita more Referred Organization [facility] Referred Address [address] [place], [place],[address] Referred Provider Specialty Physical The rapist Referral Priority Routine Chief Complaint and Reason for Visit Chief Complaint M54.50 Additional Source Comments INFORMATION SOURCE (unrecogn ized section and content) DATE CREATED AUTHOR 07/25/2022 [facility] DATE CREATED AUTHOR AUTHOR'S ORGANIZ ATION 03/12/2023 [facility] DATE CREATED AUTHOR AUTHOR'S ORGANIZ ATION 05/03/2023 [facility] DATE CREATED AUTHOR AUTHOR'S ORGANIZ ATION 06/22/2023 [facility] DATE CREATED AUTHOR AUTHOR'S ORGANIZ ATION 07/18/2023 [facility] DATE CREATED AUTHOR AUTHOR'S ORGANIZ ATION 10/15/2023 [facility] DATE CREATED AUTHOR AUTHOR'S ORGANIZ ATION 11/09/2023 [facility] DATE CREATED AUTHOR AUTHOR'S ORGANIZ ATION 11/11/2023 [facility] Source Comments (unrecognize d section and content) In the event this informatio n is protected by the Federal Confidentiality of Alcohol and Drug Abuse Patient Records regulations: The Federal rules restrict any use of the information to criminally investigate or prosecute any alcohol or drug abuse patient.[facility] the event this information is protected by the Federal Confidentiality of Alcohol and Drug Abuse Patient Records regulations: The Federal rules restrict any use of the information to criminally investigate or prosecute any alcohol or drug abuse patient.[facility] the event this information is protected by the Federal Confidentiality of Alcohol and Drug Abuse Patient Records regulations: The Federal rules restrict any use of the information to criminally investigate or prosecute any alcohol or drug abuse patient.[facility] the event this information is protected by the Federal Confidentiality of Alcohol and Drug Abuse Patient Records regulations: The Federal rules restrict any use of the information to criminally investigate or prosecute any alcohol or drug abuse patient.[facility] the event this information is protected by the Federal Confidentiality of Alcohol and Drug Abuse Patient Records regulations: The Federal rules restrict any use of the information to criminally investigate or prosecute any alcohol or drug abuse patient.[facility] the event this information is protected by the Federal Confidentiality of Alcohol and Drug Abuse Patient Records regulations: The Federal rules restrict any use of the information to criminally investigate or prosecute any alcohol or drug abuse patient.[facility] the event this information is protected by the Federal Confidentiality of Alcohol and Drug Abuse Patient Records regulations: The Federal rules restrict any use of the information to criminally investigate or prosecute any alcohol or drug abuse patient.[facility] the event this information is protected by the Federal Confidentiality of Alcohol and Drug Abuse Patient Records regulations: The Federal rules restrict any use of the information to criminally investigate or prosecute any alcohol or drug abuse patient.[facility] the event this information is protected by the Federal Confidentiality of Alcohol and Drug Abuse Patient Records regulations: The Federal rules restrict any use of the information to criminally investigate or prosecute any alcohol or drug abuse patient.[facility] the event this information is protected by the Federal Confidentiality of Alcohol and Drug Abuse Patient Records regulations: The Federal rules restrict any use of the information to criminally investigate or prosecute any alcohol or drug abuse patient.[facility] the event this information is protected by the Federal Confidentiality of Alcohol and Drug Abuse Patient Records regulations: The Federal rules restrict any use of the information to criminally investigate or prosecute any alcohol or drug abuse patient.[facility] the event this information is protected by the Federal Confidentiality of Alcohol and Drug Abuse Patient Records regulations: The Federal rules restrict any use of the information to criminally investigate or prosecute any alcohol or drug abuse patient.[facility] the event this information is protected by the Federal Confidentiality of Alcohol and Drug Abuse Patient Records regulations: The Federal rules restrict any use of the information to criminally investigate or prosecute any alcohol or drug abuse patient.[facility] Hospital[facility] the event this information is protected by the Federal Confidentiality of Alcohol and Drug Abuse Patient Records regulations: The Federal rules restrict any use of the information to criminally investigate or prosecute any alcohol or drug abuse patient.[facility] Hospital[facility] the event this information is protected by the Federal Confidentiality of Alcohol and Drug Abuse Patient Records regulations: The Federal rules restrict any use of the information to criminally investigate or prosecute any alcohol or drug abuse patient.[facility] Hospital[facility] the event this information is protected by the Federal Confidentiality of Alcohol and Drug Abuse Patient Records regulations: The Federal rules restrict any use of the information to criminally investigate or prosecute any alcohol or drug abuse patient.[facility] HospitalIn the event this information is protected by the Federal Confidentiality of Alcohol and Drug Abuse Patient Records regulations: The Federal rules restrict any use of the information to criminally investigate or prosecute any alcohol or drug abuse patient.[facility] HospitalIn the event this information is protected by the Federal Confidentiality of Alcohol and Drug Abuse Patient Records regulations: The Federal rules restrict any use of the information to criminally investigate or prosecute any alcohol or drug abuse patient.[facility] HospitalIn the event this information is protected by the Federal Confidentiality of Alcohol and Drug Abuse Patient Records regulations: The Federal rules restrict any use of the information to criminally investigate or prosecute any alcohol or drug abuse patient.[facility] HospitalIn the event this information is protected by the Federal Confidentiality of Alcohol and Drug Abuse Patient Records regulations: The Federal rules restrict any use of the information to criminally investigate or prosecute any alcohol or drug abuse patient.[facility] HospitalIn the event this information is protected by the Federal Confidentiality of Alcohol and Drug Abuse Patient Records regulations: The Federal rules restrict any use of the information to criminally investigate or prosecute any alcohol or drug abuse patient.[facility] HospitalIn the event this information is protected by the Federal Confidentiality of Alcohol and Drug Abuse Patient Records regulations: The Federal rules restrict any use of the information to criminally investigate or prosecute any alcohol or drug abuse patient.[facility] HospitalIn the event this information is protected by the Federal Confidentiality of Alcohol and Drug Abuse Patient Records regulations: The Federal rules restrict any use of the information to criminally investigate or prosecute any alcohol or drug abuse patient.[facility] HospitalIn the event this information is protected by the Federal Confidentiality of Alcohol and Drug Abuse Patient Records regulations: The Federal rules restrict any use of the information to criminally investigate or prosecute any alcohol or drug abuse patient.[facility] HospitalIn the event this information is protected by the Federal Confidentiality of Alcohol and Drug Abuse Patient Records regulations: The Federal rules restrict any use of the information to criminally investigate or prosecute any alcohol or drug abuse patient.[facility] HospitalIn the event this information is protected by the Federal Confidentiality of Alcohol and Drug Abuse Patient Records regulations: The Federal rules restrict any use of the information to criminally investigate or prosecute any alcohol or drug abuse patient.[facility] HospitalIn the event this information is protected by the Federal Confidentiality of Alcohol and Drug Abuse Patient Records regulations: The Federal rules restrict any use of the information to criminally investigate or prosecute any alcohol or drug abuse patient.[facility] HospitalIn the event this information is protected by the Federal Confidentiality of Alcohol and Drug Abuse Patient Records regulations: The Federal rules restrict any use of the information to criminally investigate or prosecute any alcohol or drug abuse patient.[facility] HospitalIn the event this information is protected by the Federal Confidentiality of Alcohol and Drug Abuse Patient Records regulations: The Federal rules restrict any use of the information to criminally investigate or prosecute any alcohol or drug abuse patient.[facility] HospitalIn the event this information is protected by the Federal Confidentiality of Alcohol and Drug Abuse Patient Records regulations: The Federal rules restrict any use of the information to criminally investigate or prosecute any alcohol or drug abuse patient.[facility] HospitalIn the event this information is protected by the Federal Confidentiality of Alcohol and Drug Abuse Patient Records regulations: The Federal rules restrict any use of the information to criminally investigate or prosecute any alcohol or drug abuse patient.[facility] HospitalIn the event this information is protected by the Federal Confidentiality of Alcohol and Drug Abuse Patient Records regulations: The Federal rules restrict any use of the information to criminally investigate or prosecute any alcohol or drug abuse patient.[facility] HospitalIn the event this information is protected by the Federal Confidentiality of Alcohol and Drug Abuse Patient Records regulations: The Federal rules restrict any use of the information to criminally investigate or prosecute any alcohol or drug abuse patient.[facility] HospitalIn the event this information is protected by the Federal Confidentiality of Alcohol and Drug Abuse Patient Records regulations: The Federal rules restrict any use of the information to criminally investigate or prosecute any alcohol or drug abuse patient.[facility] HospitalIn the event this information is protected by the Federal Confidentiality of Alcohol and Drug Abuse Patient Records regulations: The Federal rules restrict any use of the information to criminally investigate or prosecute any alcohol or drug abuse patient.[facility] HospitalIn the event this information is protected by the Federal Confidentiality of Alcohol and Drug Abuse Patient Records regulations: The Federal rules restrict any use of the information to criminally investigate or prosecute any alcohol or drug abuse patient.[facility] HospitalIn the event this information is protected by the Federal Confidentiality of Alcohol and Drug Abuse Patient Records regulations: The Federal rules restrict any use of the information to criminally investigate or prosecute any alcohol or drug abuse patient.[facility] Reason for Visit (unrecogniz ed section and content) Reason Comments Received Outside Medical Records Reason Comments CARD New Patient Consult Reason Comments Back Pain Patient presents tod ay for back pain. She has history of surgery for scoliosis 2004 and 2005. Reason Comments Scans Reason Comments Behavioral Health/Social Work Reason Comments Well Woman Specialty Diagnoses / Procedures Referred By Edy copeland Referred To Contact Diagnoses Counseling for control regarding intrauterine device (IUD) Procedures CONSULT TO RENTAL SALES AGENT OFFICE/OUTPATIENT [facility] 60-74 MINUTES Ashwini Matute PA-C [address] [place] [address] Referral ID Status Reason Start Date Expiration Date Visits Requested Visits Authorized [id number] Pending Review PCP Requested Referral Auto-Generate d Referral 01/11/2023 01/11/2024 1 1 Reason Comments Needs Work Note Called off today due to Neuropathy. Pt is in a lot of pain. Episodes every 30 minutes. Specialty Diagnoses / Procedures Referred By Edy copeland Referred To Contact [facility] Diagnoses Palpitations Procedures ECHO ECHO TTHRC R-T 2D W/WOM-MODE COMPL SPEC&COLR D Jessee Hamilton MD [address] [place] [address] [facility] [place] [address] [place] [address] Referral ID Status Reason Start Date Expiration Date Visits Requested Visits Authorized [id number] Authorized Auto-Generat ed Referral 11/25/2022 09/04/2023 1 1 Reason Comments Radio Gen RMP Reason Comments Back Pain Started last Saturda y. Right side below shoulder blade. Hurts [...] Care Teams (unrecognized sec tion and content) Chemical Laboratory Scientist Relationship Specialty Start Date End Date AmyAshwini PA-C [address] [place] [address] PCP - General Physician Web Press Operator Helper Offset 01/11/23 Chemical Laboratory Scientist Relationship Specialty Start Date End Date AmyAshwini PA-C [address] [place] [address] PCP - General Physician Web Press Operator Helper Offset 01/11/23 Chemical Laboratory Scientist Relationship Specialty Start Date End Date AmyAshwini PA-C [address] [place] [address] PCP - General Physician Web Press Operator Helper Offset 01/11/23 Chemical Laboratory Scientist Relationship Specialty Start Date End Date AmyAshwini PA-C [address] [place] [address] PCP - General Physician Web Press Operator Helper Offset 01/11/23 Chemical Laboratory Scientist Relationship Specialty Start Date End Date AmyAshwini PA-C [address] [place] [address] PCP - General Physician Web Press Operator Helper Offset 01/11/23 Chemical Laboratory Scientist Relationship Specialty Start Date End Date Amy Ashwini Lim PA-C [address] [facility] [place] [address] PCP - General Physician Web Press Operator Helper Offset 01/11/23 Chemical Laboratory Scientist Relationship Specialty Start Date End Date Amy Ashwini Lim PA-C [address] [place] [address], [place] [address] PCP - General Physician Web Press Operator Helper Offset 01/11/23 Chemical Laboratory Scientist Relationship Specialty Start Date End Date Amy Ashwini Lim PA-C [address] [place] [address], [place] [address] PCP - General Physician Web Press Operator Helper Offset 01/11/23 Chemical Laboratory Scientist Relationship Specialty Start Date End Date Amy Ashwini Lim PA-C [address] [place] [address], [place] [address] PCP - General Physician Web Press Operator Helper Offset 01/11/23 Chemical Laboratory Scientist Relationship Specialty Start Date End Date Amy Ashwini Lim PA-C [address] [place] [address], [place] [address] PCP - General Physician Web Press Operator Helper Offset 01/11/23 Chemical Laboratory Scientist Relationship Specialty Start Date End Date AmyAshwini PA-C [address] [place] [address], [place] [address] PCP - General Physician Web Press Operator Helper Offset 01/11/23 Chemical Laboratory Scientist Relationship Specialty Start Date End Date AmyAshwini PA-C [address] [place] [address], [place] [address] PCP - General Physician Web Press Operator Helper Offset 01/11/23 Chemical Laboratory Scientist Relationship Specialty Start Date End Date Amy Ashwini Lim PA-C [address] [facility] [place] [address] PCP - General Physician Web Press Operator Helper Offset 01/11/23 Chemical Laboratory Scientist Relationship Specialty Start Date End Date Amy Ashwini Lim PA-C [address] [facility] [place] [address] PCP - General Physician Web Press Operator Helper Offset 01/11/23 Chemical Laboratory Scientist Relationship Specialty Start Date End Date AmyAshwini PA-C [address] [place] [address], [place] [address] PCP - General Physician Web Press Operator [employer] 01/11/23 Chemical Laboratory Scientist Relationship Specialty Start Date End Date AmyAshwini PA-C [address] [place] [address], [place] [address] PCP - General Physician Web Press Operator [employer] 01/11/23 Chemical Laboratory Scientist Relationship Specialty Start Date End Date AmyAshwini PA-C [address] [place] [address], [place] [address] PCP - General Physician Web Press Operator [employer] 01/11/23 Chemical Laboratory Scientist Relationship Specialty Start Date End Date AmyAshwini PA-C [address] [place] [address] PCP - General Physician Web Press Operator [employer] 01/11/23 Chemical Laboratory Scientist Relationship Specialty Start Date End Date AmyAshwini PA-C [address] [place] [address] PCP - General Physician Web Press Operator [employer] 01/11/23 Chemical Laboratory Scientist Relationship Specialty Start Date End Date RomainAshwini abad PA-C [address] [place] [address] PCP - General Physician Web Press Operator [employer] 01/11/23 Chemical Laboratory Scientist Relationship Specialty Start Date End Date AmyAshwini PA-C [address] [place] [address], [place] [address] PCP - General Physician Web Press Operator [employer] 01/11/23 Chemical Laboratory Scientist Relationship Specialty Start Date End Date AmyAshwini PA-C [address] [place] [id number] PCP - General Physician Web Press Operator [employer] 01/11/23 Chemical Laboratory Scientist Relationship Specialty Start Date End Date AmyAshwini PA-C [address] [place] [id number] PCP - General Physician Web Press Operator [employer] 01/11/23 Chemical Laboratory Scientist Relationship Specialty Start Date End Date ConchitaAshwini abad PA-C [address] [place] [id number] PCP - General 02/10/23 Chemical Laboratory Scientist Relationship Specialty Start Date End Date RomainAshwini abad PA-C [address] [place] [id number] PCP - General 02/10/23 Team Status: Active Member Role Status Dates PHYSICIAN NO FAMILY Primary Care Provider Active Team Status: Inactive Member Role Status Dates PHYSICIAN NO FAMILY Primary Care Provider Active SAUL Paz Attending Provider Active Goals (unrecognized section and [...] BE BASED ON THE PRIMARY CLINICAL RECORDS. [facility]. provides no warranty or guarantee of the accuracy or completeness of information in this document.
== END 2023-12-15 14:19 | disposition home or self-care (01) ==
PROVIDERS: Visit Provider Nurse Practitioner
DX: M48.062 Spinal stenosis, lumbar region with neurogenic claudication (principal); Z98.890 Other specified postprocedural states; M79.18 Myalgia, other site
CPT/HCPCS: G0463

== ENCOUNTER 2024-01-12 13:01 | Outpatient (RCR) | payer OTHER, SELFPAY | END 2024-01-13 13:16 | disposition home or self-care (01) | LOC: PT 13:01 | PROVIDERS: Visit Provider Nurse Practitioner | DX: M48.061 Spinal stenosis, lumbar region without neurogenic claudication (principal) | CPT/HCPCS: 97750 ==

== ENCOUNTER 2024-02-08 15:20 | Outpatient (OUT) | payer OTHER, SELFPAY ==
--- NOTE | 2024-02-08 15:31 | P.CN_ITS ---
Consult Note: HPI Data of Consult Patient: known to practice within the last 3 years Consult date: 09/26/23 Requesting Physician: Ele Smith NP Primary Care Provider: Justo Mendez Consult Narrative Reason for consult: f/u Narrative: 33yof who presents for evaluation. Had scoliosis corrective surgery in youth, thoracolumbar fusion in place. Has persistent right lower extremity and foot pain. Lumbar CT shows foraminal stenosis in lower lumbar spine. Has engaged in >6 weeks of provider directed home exercise course, with minimal benefit. Uses gabapentin and lyrica, which has helped keep symptoms at bay. Denies adverse med side effects. Patient previous underwent right L5-S1 S1-S2 TFESI with> 50% improvement in pain and functional ability . Right foot pain 3/10 increasing to 8/10 with standing walking and activity, continues to report numbness tingling burning. cc:: CC: Ele Smith NP Review of Systems ROS Status of ROS 10 or more systems reviewed and unremark able except as noted in history and below Musculoskeletal Reports: extremity pain Meds Home Medications and Allergies Home Medications ?Medication ?Instructions ?Recorded ?Confirmed ?Type benfotiamine 150 mg capsule 150 mg PO DAILY 09/26/23 10/03/23 History bupropion HCl 150 mg tablet,12 hr 150 mg PO DAILY 09/26/23 10/03/23 History sustained-release (Wellbutrin SR) cholecalciferol (vitamin D3) 1,250 50,000 unit PO QWEEK 09/26/23 10/03/23 History mcg (50,000 unit) capsule dextroamphetamine-amphetamine 10 10 mg PO DAILY 09/26/23 10/03/23 History mg tablet (Adderall) dextroamphetamine-amphetamine ER 30 mg PO DAILY 09/26/23 10/03/23 History 30 mg 24hr capsule,extend release (Adderall XR) escitalopram oxalate 20 mg tablet 20 mg PO DAILY 09/26/23 10/03/23 History (Lexapro) gabapentin 600 mg tablet 1,200 mg PO Q8H 09/26/23 10/03/23 History ibuprofen 800 mg tablet 800 mg PO DAILY PRN pain 09/26/23 10/03/23 History metoprolol tartrate 25 mg tablet 25 mg PO Q12H 09/26/23 10/03/23 History pregabalin 75 mg capsule 75 mg PO Q8H 09/26/23 10/03/23 History mecobalamin (vitamin B12) 10,000 mcg IM 10/03/23 History mcg solution for injection gabapentin 600 mg tablet 1,200 mg (2 x 600 mg) PO TID #180 12/15/23 Rx tabs pregabalin 75 mg capsule (Lyrica) 75 mg PO TID #90 caps 12/15/23 Rx Allergies Allergy/AdvReac Type Severity Reaction Status Date / Time No Known Drug Allergies Allergy Verified 10/03/23 09:40 Exam Narrative Exam Narrative: Psych-alert and oriented x 3. Attentive and appropriate, constitutionally normal, displays normal mood and affect per situation. There are no obvious deficits in memory, reasoning, or intellect.? Skin-no obvious rashes, bruising, erythema noted to the patient's area of pain.? Extremities- extremities are warm with minimal edema and palpable pulses. Lumbar-tenderness to palpation noted in the lumbar spine and paraspinal musculature. Pain is not elicited with flexion, extension, and lateral rotation of the lumbar spine. Range of motion is not diminished with these motions. Facet loading maneuvers are negative.? Strength-noted to be unremarkable with the exception of decreased strength rated at 4 out of 5 in right anterior tibialis, posterior tibialis. Sensory-no notable sensory deficits in the bilateral lower extremities to touch or pinprick in all dermatomal distributions with the exception to decreased sensation to the right L5, S1 dermatomal distribution Coordination remains intact.? Gait remains non-antalgic Constitutional Documenting provider has reviewed patient's vital signs: yes Common normals: no apparent distress, oriented x3, healthy appearing, alert and well nourished General appearance: cooperative HENCA Common normals: normocephalic, hearing grossly normal bilaterally and moist oral mucous membranes Head and scalp: normocephalic Eye Common normals: PERRL Pupil: PERRL Neck & C-Spine Common normals: full ROM General: normal visual inspection Chest Common normals: inspection of chest normal Respiratory Common normals: normal respiratory effort, no retractions and no use of accessory muscles Neuro Common normals: oriented x3, CN's II-XII intact bilaterally, moves all extremities, no focal motor deficits, no sensory deficits noted and deep tendon reflexes 2+ bilaterally Sensorium/orientation: alert Motor exam: strength 5/5 throughout and no movement abnormalities noted Psych Common normals: mental status grossly normal, thought process normal, cooperative, affect normal, speech normal and activity/motor behavior normal Speech: normal speech Thought process: normal thought process Results Additional Findings Additional findings: If on a controlled substance or opioids, I have checked an [place] report on this patient and there are no aberrancies noted in the prescribing history.??If on a controlled substance or opioid a drug screen was completed and reviewed within the last year, and if there has not been a drug screen completed we ordered one today to monitor higher risk, state monitored pain medication use. As part of providing excellent, safe, comprehensive care, the following was completed at our patient's visit: 1. A medication reconciliation and review to ensure accurate knowledge of current/active medications, including asking our patients to inform us about any [id number] medications or herbal remedies/nutritional supplements/alternative remedies. 2. A review to specifically ensure our patients have had annual screening for screening for depression, screening for tobacco use, and screening for unhealthy alcohol use. For concerning screenings had a discussion with the patient, provided patient education, and recommended follow-up with primary care provider when appropriate. If patient noted with a risk of falling, they received education on strength, gait, and balance training to prevent future risk of falling. Assessment and Plan Assessment and Plan (1) Lumbar stenosis with neurogenic claudication: (2) Lumbar postlaminectomy syndrome: (3) Myofascial pain: Assessment and Plan: intermittent right calf muscle cramps/spasms, worse at night Plan repeat right L5-S1 S1-S2 TFESI under fluoroscopy, previous injection provided >50% improvement greater than 3 months increase tizanidine 4-8mg BID PRN myofascial pain continue current medication regimen, denies side effects continue aquatherapy and HEP as tolerated reviewed FCE with patient f/u 2 weeks after repeat TFESI
== END 2024-02-08 15:21 | disposition home or self-care (01) ==
LOC: PM 15:21
PROVIDERS: Visit Provider Nurse Practitioner
DX: M48.062 Spinal stenosis, lumbar region with neurogenic claudication (principal); M96.1 Postlaminectomy syndrome, not elsewhere classified; M79.18 Myalgia, other site
CPT/HCPCS: G0463

== ENCOUNTER 2024-02-27 07:02 | Day surgery (SDC) | payer OTHER, SELFPAY ==
--- OUTSIDE RECORDS SUMMARY | 2024-02-27 07:06 | XMS_ITS | CCD ---
Author Organization [facility] ion [facility] Care Team Providers Care Front Sight Attacher Name Role Phone EMILYBEN MATSON Attending Unavailable Unavailable Primary Care Provider Ashwini Verdin PA-C Primary Care Provid er Update Needed Unavailable Unavailable Unavailable Unavailable Ashwini Matute Unavailable MD TERRIE BROWN Referring UnavailMD TERRIE Ramos Admitting Unavailterry e DINA DENNIS OSAMA Attending Unavailable Amy, Ms. Ashwini Guerrero Primary Care Un available MD TERRIE BROWN Attending Unavailterry pacheco Self, Referral Referring Unavailable Amy, Ms. Ashwini Guerrero Primary Care Un available MD TERRIE BROWN Attending Unavailterry Matute, Ms. Ashwini Guerrero Primary Care Un available Ashwini Matute PA-C Primary Care Prov ider TERRIE BROWN Attending Unavailable ASHWINI MATUTE Primary Care Unavai lable NO FAMILY, PHYSICIAN Primary Care Provider Unava ilable SAUL Townsend Attending Provider Lorie Townsend Unavailable ASHWINI MATUTE Attending Unavaila ARIA Carr Attending Unavailable ASHWINI MATUTE Referring Unavaila ble ASHWINI MATUTE Primary Care Unavaila ble ASHWINI MATUTE Primary Care Unavaila CHITRA Souza Attending Unavailable ASHWINI MATUTE Primary Care Unavaila CHITRA Souza Attending Unavailable ASHWINI MATUTE Primary Care Unavaila CHITRA Souza Referring Unavailable FINEFROCK, ASHWINI L Referring Unavaila ble FINEFROCK, ASHWINI L Primary Care Unavaila ble FINEFROCK, ASHWINI L Attending Unavaila ble FINEFROCK, ASHWINI L Primary Care Unavaila ble ARIA IZQUIERDO Attending Unavailable ARIA IZQUIERDO Referring Unavailable FINEFROCK, [...] Unavailable NO FAMILY, PHYSICIAN Primary Care Unavailable KIANA GAUTHIER Attending Unavailable BOBO VIGIL Attending Unavailable Medications Current Medications Medication Drug [...] 30 days. Take 1 tablet by amrita every afternoon for 30 days. Take 1 tablet by amrita th every afternoon for 30 days. Do not start before July 18, 2023. Take 1 tablet by amrita th every afternoon for 30 days. Do not start before June 18, 2023. Take 1 tablet by amrita every [...] on above: Take 1 capsule by mo [facility] once daily. atomoxetine 100 mg oral capsule [...] : 11-Dec-2012 Active take 1 tablet by [facility] every twenty-four hours Gabapentin 600 MG 1 tablet Orally Once a day Active Comment on above: TAKE 1 TABLET THREE TIMES A DAY Take 2 tablets by [facility] three times daily for 30 days. Take 2 tablets by [facility] three times a day for 30 days. [...] the second pill 8-10 hours prior to CONDENSER SETTER appt for cervical dilation. 2 tablet 0 02/03/2023 02/04/2023 Discontinued Comment on above: 1 tablet as directed . Take by mouth 2 days prior to appt, and the second pill 8-10 hours prior to CONDENSER SETTER appt for cervical dilation. 1 tablet as directed for 2 doses. Take by mouth 2 days prior to appt, and the second pill 8-10 hours prior to CONDENSER SETTER appt for cervical dilation. perflutren lipid microspheres [...] Start: 07-24-2022 take 2 tablets by mo [facility] twice daily, then take 1 tablet by [...] for 23 days Take 1 tablet by [facility] twice daily. ergocalciferol 1.25 mg oral [...] once V itamin D (Ergocalciferol) 1.25 MG (77135 UT) Oral Capsule Quantity: 12 Refills: 0 Ordered: 26-Sep-2013 DO Start : 26-Sep-2013 Active take 1 capsule by mo [facility] every week ergocalciferol (Vitamin D-2) 1.25 MG (81449 UT) capsule Take 1 capsule (1,250 mcg) by mouth 1 (one) time per week. 0 Active Comment on above: TAKE 1 CAPSULE ONCE A WEEK Take 1 capsule by [facility] one time a week. metoprolol tartrate 25 [...] Comment on above: Take 1 tablet by [facility] twice daily. take 1 tablet by [facility] twice a day Problems Active Problems Problem [...] or radiculopathy, lumbosacral region] Onset: 02-10-2023 Chronic Substance-related disorders (2 sources) Nicotine dependence, cigarettes, uncomplicated; Translations: [Nicotine dependence, cigarettes, uncomplicated] Onset: 10-31-2023 Chronic Unclassified (2 sources) Low back pain, [...] Test Name Value Interpretation Reference Range Facility 36on 12-20-[address] VIGIL STATES TO STOP MEDS AND ASPIRIN Normal [facility] Office Visiton 12-20-2023 Follow-up visit [id number] Hue Titus 1990 F Date Provider Department Center 12/20/2023 241BOBO RABAGO ISAAC Mas Family History Problem Relation Age of Onset Atrial fibrillation Mother Stroke Maternal Grandmother Family Status - Relation Status Age at Mother Maternal Grandmother Level of Service:30473 UT OFFICE/OUTPATIENT ESTABLISHED LOW MDM 20 MIN Normal [facility] Office Visiton 10-31-2023 Follow-up visit [id number] Hue Titus 1990 F Date Provider Department Center 10/31/2023 KIANA BILLINGS ISAAC Mas Family History Problem Relation Age of Onset Atrial fibrillation Mother Stroke Maternal Grandmother Family Status - Relation Status Age at Mother Maternal Grandmother Level of Service:64825 UT OFFICE/OUTPATIENT NEW MODERATE MDM 45 MINUTES Normal [facility] CNCOon 10-14-2023 CNCO Letter Text Normal [facility] XR lumbar spine 6V w bending on 09-12-2023 XR lumbar spine 6V w bending [facility] [place] [address] [place] [address] XRay Report Signed Patient: Hue Titus MR#: [id number] : 1990 Acct:[id number] Age/Sex: 33 / F ADM Date: 09/12/23 Loc: XD Room: Type: [facility] Attending Dr: Lorie HUGHES Copies to: SAUL [...] Amberly Livingston M.D.09/12/2023 5:18 PM Dictation Location: [place] [address] Transcribed By: [facility] 09/12/231717 Dictated By: Amberly Livingston MD 09/12/231714 Signed By: 09/12/231717 [facility] 05-27-2023 CNOV Office Visit (CARDAV ) HUE TITUS ([id number]) 1990 F CHT Date Time Provider Department 05/27/23 1:30 PM JESSEE HAMILTON During your visit today, we recorded the following information about you: Pulse Blood pressure Weight Height 97/minute 124/76 65.8 kg 1.702 m Jessee Hamilton MD 05/28/2023 8:48 AM Signed PRIMARY CARE PHYSICIAN: Ashwini Matute [address] [place] [address] REFERRING PHYSICIAN: No referring provider defined for this encounter. CHIEF COMPLAINT: Abnormal Holter HISTORY OF PRESENT ILLNESS: From my office notes on September 27, 2022 Probably paroxysmal atrial fibrillation, with spontaneous conversion into normal sinus rhythm. [id number] based on the information we have [...] disorder) Ovarian cyst PAF (paroxysmal atrial fibrillation) ([facility]) 07/2022 follows with cardiology Scoliosis SVT, lower [...] Date Va (more content not included)... Normal [facility] CBC W Auto Differential pane l (Bld)on 05-26-2023 Basophils (Bld) [#/Vol] 0.05 10*3/uL <0.11 k/uL [facility] Basophils/100 WBC (Bld) 0.7 % [facility] Differential cell count method Nom (Bld) Auto [facility] Eosinophils (Bld) [#/Vol] 0.14 10*3/uL <0.46 k/uL [facility] Eosinophils/100 WBC (Bld) 1.9 % [facility] Erythrocyte distribution width (RBC) [Ratio] 13.4 % 11.5 - 15.0 % [facility] Hematocrit (Bld) [Volume fraction] 44.3 % 36.0 - 46.0 % [facility] Hemoglobin (Bld) [Mass/Vol] 14.6 g/dL 11.5 - 15.5 g/dL [facility] Immature granulocytes (Bld) [#/Vol] 0.07 10*3/uL <0.10 k/uL [facility] Immature granulocytes/100 WBC (Bld) 0.9 % [facility] Lymphocytes (Bld) [#/Vol] 1.92 10*3/uL 1.00 - 4.00 k/uL [facility] Lymphocytes/100 WBC (Bld) 26.0 % [facility] MCH (RBC) [Entitic mass] 31.7 pg 26.0 - 34.0 pg [facility] MCHC (RBC) [Mass/Vol] 33.0 g/dL 30.5 - 36.0 g/dL [facility] MCV (RBC) [Entitic vol] 96.3 fL 80.0 - 100.0 fL [facility] Monocytes (Bld) [#/Vol] 0.63 10*3/uL <0.87 k/uL [facility] Monocytes/100 WBC (Bld) 8.5 % [facility] Neutrophils (Bld) [#/Vol] 4.57 10*3/uL 1.45 - 7.50 k/uL [facility] Neutrophils/100 WBC (Bld) 62.0 % [facility] Nucleated RBC (Bld) [#/Vol] <0.01 k/uL [facility] Nucleated RBC/100 WBC (Bld) [Ratio] 0.0 /100 WBC [facility] Platelet mean volume (Bld) [Entitic vol] 9.1 fL 9.0 - 12.7 fL [facility] Platelets (Bld) [#/Vol] 385 10*3/uL 150 - 400 k/uL [facility] RBC (Bld) [#/Vol] 4.60 10*6/uL 3.90 - 5.2 0 m/uL [facility] WBC (Bld) [#/Vol] 7.38 10*3/uL 3.70 - 11. 00 k/uL [facility] Basophils (Bld) [#/Vol] 0.05 10*3/uL Normal <0.11 [facility] Comment on above: Order Comment: Speci men Type: BLOOD SPECIMENOrdering Facility: [facility] Address: [address] [place] [address] Performed By: #### 5 7021-8 ####[facility] LABCLIA [id number] [place] [address] [place] Basophils/100 WBC (Bld) 0.7 % Normal [facility] Comment on above: Order Comment: Speci men Type: BLOOD SPECIMENOrdering Facility: [facility] Address: [address] [place] [address] Performed By: #### 5 7021-8 ####[facility] LABCLIA [id number] [place] [address] [place] Differential cell count method Nom (Bld) Auto Normal [facility] Comment on above: Order Comment: Speci men Type: BLOOD SPECIMENOrdering Facility: [facility] Address: [address] [place] [address] Performed By: #### 5 7021-8 ####[facility] LABCLIA [id number] [place] [address] [place] Eosinophils (Bld) [#/Vol] 0.14 10*3/uL Normal <0.46 [facility] Comment on above: Order Comment: Speci men Type: BLOOD SPECIMENOrdering Facility: [facility] Address: [address] [place], [place] [address] Performed By: #### 5 7021-8 ####[facility] LABCLIA [id number] [address] [place] Eosinophils/100 WBC (Bld) 1.9 % Normal [facility] Comment on above: Order Comment: Speci men Type: BLOOD SPECIMENOrdering Facility: [facility] Address: [address] Performed By: #### 5 7021-8 ####[facility] LABCLIA [id number] [place] [address] [place] Erythrocyte distribution width (RBC) [Ratio] 13.4 % Normal 11.5-15.0 [facility] Comment on above: Order Comment: Speci men Type: BLOOD SPECIMENOrdering Facility: [facility] Address: [address] [place] [address] Performed By: #### 5 7021-8 ####[facility] LABCLIA [id number] [address] [place] Hematocrit (Bld) [Volume fraction] 44.3 % Normal 36.0-46.0 [facility] Comment on above: Order Comment: Speci men Type: BLOOD SPECIMENOrdering Facility: [facility] Address: [address] Performed By: #### 5 7021-8 ####[facility] LABIA [id number] [place] [address] [place] Hemoglobin (Bld) [Mass/Vol] 14.6 g/dL Normal 11.5-15.5 [facility] Comment on above: Order Comment: Speci men Type: BLOOD SPECIMENOrdering Facility: [facility] Address: [address] Performed By: #### 5 7021-8 ####[facility] LABIA [id number] [place] [address] [place] Immature granulocytes (Bld) [#/Vol] 0.07 10*3/uL Normal <0.10 [facility] Comment on above: Order Comment: Speci men Type: BLOOD SPECIMENOrdering Facility: [facility] Address: [address] Performed By: #### 5 7021-8 ####[facility] LABIA [id number] [address] [place] Immature granulocytes/100 WBC (Bld) 0.9 % Normal [facility] Comment on above: Order Comment: Speci men Type: BLOOD SPECIMENOrdering Facility: [facility] Address: [address] Performed By: #### 5 7021-8 ####[facility] LABIA [id number] [place] [address] [place] Lymphocytes (Bld) [#/Vol] 1.92 10*3/uL Normal 1.00-4.00 [facility] Comment on above: Order Comment: Speci men Type: BLOOD SPECIMENOrdering Facility: [facility] Address: [address] [place] [address] Performed By: #### 5 7021-8 ####[facility] LABCLIA [id number] [address] OF [facility] Lymphocytes/100 WBC (Bld) 26.0 % Normal [facility] Comment on above: Order Comment: Speci men Type: BLOOD SPECIMENOrdering Facility: [facility] Address: [address] [place] [address] Performed By: #### 5 7021-8 ####[facility] LABIA [id number] [address] [place] MCH (RBC) [Entitic mass] 31.7 pg Normal 26.0-34.0 [facility] Comment on above: Order Comment: Speci men Type: BLOOD SPECIMENOrdering Facility: [facility] Address: [address] [place], [place] [address] Performed By: #### 5 7021-8 ####[facility] LABIA [id number] [place] [address] [place] MCHC (RBC) [Mass/Vol] 33.0 g/dL Normal 30.5-36.0 [facility] Comment on above: Order Comment: Speci men Type: BLOOD SPECIMENOrdering Facility: [facility] Address: [address] [place], [place] [address] Performed By: #### 5 7021-8 ####[facility] LABCLIA [id number] [place] [address] [place] MCV (RBC) [Entitic vol] 96.3 fL Normal 80.0-100.0 [facility] Comment on above: Order Comment: Speci men Type: BLOOD SPECIMENOrdering Facility: [facility] Address: [address] Performed By: #### 5 7021-8 ####[facility] LABCLIA [id number] [place] [address] [place] Monocytes (Bld) [#/Vol] 0.63 10*3/uL Normal <0.87 [facility] Comment on above: Order Comment: Speci men Type: BLOOD SPECIMENOrdering Facility: [facility] Address: [address] Performed By: #### 5 7021-8 ####[facility] LABCLIA [id number] [place] [address] [place] Monocytes/100 WBC (Bld) 8.5 % Normal [facility] Comment on above: Order Comment: Speci men Type: BLOOD SPECIMENOrdering Facility: [facility] Address: [address] Performed By: #### 5 7021-8 ####[facility] LABCLIA [id number] [place] [address] [place] Neutrophils (Bld) [#/Vol] 4.57 10*3/uL Normal 1.45-7.50 [facility] Comment on above: Order Comment: Speci men Type: BLOOD SPECIMENOrdering Facility: [facility] Address: [address] Performed By: #### 5 7021-8 ####[facility] LABCLIA [id number] [place] [address] [place] Neutrophils/100 WBC (Bld) 62.0 % Normal [facility] Comment on above: Order Comment: Speci men Type: BLOOD SPECIMENOrdering Facility: [facility] Address: [address] Performed By: #### 5 7021-8 ####[facility] LABCLIA [id number] [place] [address] [place] Nucleated RBC (Bld) [#/Vol] 10*3/uL Normal <0.01 [facility] Comment on above: Order Comment: Speci men Type: BLOOD SPECIMENOrdering Facility: [facility] Address: [address] [place], [place] [address] Performed By: #### 5 7021-8 ####[facility] LABCLIA [id number] [place] [address] [place] Nucleated RBC/100 WBC (Bld) [Ratio] 0.0 /100 WBC Normal [facility] Comment on above: Order Comment: Speci men Type: BLOOD SPECIMENOrdering Facility: [facility] Address: [address] [place], [place] [address] Performed By: #### 5 7021-8 ####[facility] LABIA [id number] [place] [address] [place] Platelet mean volume (Bld) [Entitic vol] 9.1 fL Normal 9.0-12.7 [facility] Comment on above: Order Comment: Speci men Type: BLOOD SPECIMENOrdering Facility: [facility] Address: [address] [place], [place] [address] Performed By: #### 5 7021-8 ####[facility] LABIA [id number] [place] [address] [place] Platelets (Bld) [#/Vol] 385 10*3/uL Normal 150-400 [facility] Comment on above: Order Comment: Speci men Type: BLOOD SPECIMENOrdering Facility: [facility] Address: [address] [place] [address] Performed By: #### 5 7021-8 ####[facility] LABCLIA [id number] [place] [address] [place] RBC (Bld) [#/Vol] 4.60 10*6/uL Normal 3.90-5.20 [facility] Comment on above: Order Comment: Speci men Type: BLOOD SPECIMENOrdering Facility: [facility] Address: [place] [id number] Performed By: #### 5 7021-8 ####[facility] LABCLIA [id number] [place] [address] [place] [facility] [place] WBC (Bld) [#/Vol] 7.38 10*3/uL Normal 3.70-11.00 [facility] Comment on above: Order Comment: Speci men Type: BLOOD SPECIMENOrdering Facility: [facility] Address: [place] [address] Performed By: #### 5 7021-8 ####[facility] LABCLIA [id number] [address] OF [facility] CNOVon 05-26-2023 CNOV Office Visit (INDEHE ) HUE TITUS ([id number]) 1990 F [facility] Date Time Provider Department 05/26/23 1:00 PM ASHWINI MATUTE During your visit today, we recorded the following information about you: Temperature Pulse Blood pressure Weight 98.3 degrees 71/minute 122/87 64.4 kg Height 1.702 m Lorrie Vargas MA 05/26/2023 1:23 PM Signed [facility] FACTS Please visit our lab at least 3-5 days before your scheduled appointment to have your lab work drawn, if lab work is ordered. This will allow us the ability to review your lab work results with you during your scheduled visit. [facility] HOURS: Lab is open Tuesday - Jay from 6:30am to 5pm and open 8am -12pm on Saturdays. [facility]: Tuesday- 7:30am to 5:30pm. Fridays [...] medicine, or pediatrics at any of our [facility] locations and main campus. Ashwini Matute PA-C 05/26/2023 3:00 PM Signed This note was created using Grabbed. Mercedes Titus is a 33 year old female. 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 Normal [facility] Comprehensive metabolic 2000 panelon 05-26-2023 Albumin [Mass/Vol] 4.7 g/dL Normal 3.9-4.9 [facility] Comment on above: Order Comment: Speci men Type: BLOOD SPECIMENOrdering Facility: [facility] Address: [address] [place] [address] Performed By: #### 2 4323-8 ####[facility] LABCLIA [id number] [place] [address] [place] ALP [Catalytic activity/Vol] 92 U/L Normal 34-123 [facility] Comment on above: Order Comment: Speci men Type: BLOOD SPECIMENOrdering Facility: [facility] Address: [address] Performed By: #### 2 4323-8 ####[facility] LABCLIA [id number] [place] [address] [place] ALT [Catalytic activity/Vol] 17 U/L Normal 7-38 [facility] Comment on above: Order Comment: Speci men Type: BLOOD SPECIMENOrdering Facility: [facility] Address: [address] [place], [place] [address] Performed By: #### 2 4323-8 ####[facility] LABCLIA [id number] [place] [address] [place] Anion gap [Moles/Vol] 11 mmol/L Normal 9-18 [facility] Comment on above: Order Comment: Speci men Type: BLOOD SPECIMENOrdering Facility: [facility] Address: [address] [place], [place] [address] Performed By: #### 2 4323-8 ####[facility] LABCLIA [id number] [place] [address] [place] AST [Catalytic activity/Vol] 32 U/L Normal 13-35 [facility] Comment on above: Order Comment: Speci men Type: BLOOD SPECIMENOrdering Facility: [facility] Address: [address] Performed By: #### 2 4323-8 ####[facility] LABCLIA [id number] [place] [address] [place] Bilirubin [Mass/Vol] 0.5 mg/dL Normal 0.2-1.3 [facility] Comment on above: Order Comment: Speci men Type: BLOOD SPECIMENOrdering Facility: [facility] Address: [address] [place] [address] Performed By: #### 2 4323-8 ####[facility] LABCLIA [id number] [place] [address] [place] Calcium [Mass/Vol] 9.6 mg/dL Normal 8.5-10.2 [facility] Comment on above: Order Comment: Speci men Type: BLOOD SPECIMENOrdering Facility: [facility] Address: [address] [place] [address] Performed By: #### 2 4323-8 ####[facility] LABCLIA [id number] [place] [address] [place] Chloride [Moles/Vol] 100 mmol/L Normal 97-105 [facility] Comment on above: Order Comment: Speci men Type: BLOOD SPECIMENOrdering Facility: [facility] Address: [address] [place], [place] [address] Performed By: #### 2 4323-8 ####[facility] LABCLIA [id number] [place] [address] [place] CO2 [Moles/Vol] 28 mmol/L Normal 22-30 [facility] Comment on above: Order Comment: Speci men Type: BLOOD SPECIMENOrdering Facility: [facility] Address: [address] [place], [place] [address] Performed By: #### 2 4323-8 ####[facility] LABCLIA [id number] [place] [address] [place] Creatinine [Mass/Vol] 0.77 mg/dL Normal 0.58-0.96 [facility] Comment on above: Order Comment: Speci men Type: BLOOD SPECIMENOrdering Facility: [facility] Address: [address] [place] [address] Performed By: #### 2 4323-8 ####[facility] LABIA [id number] [address] [place] Creatinine and Glomerular filtration rate.predicted panel (S/P/Bld) 105 mL/min/1.73m??? Normal >=60 [facility] Comment on above: Order Comment: Dada dagoberto Type: BLOOD SPECIMENOrdering Facility: [facility] Address: [address] [place] [address] Result Comment: Anabela mated Glomerular Filtration Rate [...] GFR. Performed By: #### 2 4323-8 ####[facility] LABIA [id number] [place] [address] [place] Glucose [Mass/Vol] 72 mg/dL Low 74-99 [facility] Comment on above: Order Comment: Dada arenas Type: BLOOD SPECIMENOrdering Facility: [facility] Address: [address] [place] [address] Result Comment: The [place] [employer] (ADA) [...] 1). Performed By: #### 2 4323-8 ####[facility] LABCLIA [id number] [place] [address] [place] Potassium [Moles/Vol] 4.3 mmol/L Normal 3.7-5.1 [facility] Comment on above: Order Comment: Speci men Type: BLOOD SPECIMENOrdering Facility: [facility] Address: [address] [place] [address] Performed By: #### 2 4323-8 ####[facility] LABIA [id number] [place] [address] [place] Protein [Mass/Vol] 8.1 g/dL High 6.3-8.0 [facility] Comment on above: Order Comment: Speci men Type: BLOOD SPECIMENOrdering Facility: [facility] Address: [address] [place] [address] Performed By: #### 2 4323-8 ####[facility] LABIA [id number] [place] [address] [place] Sodium [Moles/Vol] 139 mmol/L Normal 136-144 [facility] Comment on above: Order Comment: Speci men Type: BLOOD SPECIMENOrdering Facility: [facility] Address: [address] [place] [address] Performed By: #### 2 4323-8 ####[facility] LABIA [id number] [place] [address] [place] Urea nitrogen [Mass/Vol] 14 mg/dL Normal 7-21 [facility] Comment on above: Order Comment: Speci men Type: BLOOD SPECIMENOrdering Facility: [facility] Address: [address] [place] [address] Performed By: #### 2 4323-8 ####[facility] LABIA [id number] [place] [address] [place] TOX SCREEN ROUT URon 023 Amphetamines Confirm (U) [Mass/Vol] Positive Abnormal Negative [facility] Comment on above: Order Comment: Speci men Type: URINE SPECIMENOrdering Facility: [facility] Address: [address] [place] [address] Result Comment: Cuto ff threshold at 1000 ng/mL. Performed By: #### U TOX2 ####[facility] LABCLIA [id number] [place] [address] [place] BARBITURATES, URINE Negative Normal Negative [facility] Comment on above: Order Comment: Speci men Type: URINE SPECIMENOrdering Facility: [facility] Address: [address] [place] [address] Result Comment: Cuto ff threshold at 200 ng/mL. Performed By: #### U TOX2 ####[facility] LABCLIA [id number] [place] [address] [place] BENZODIAZEPINES, UR Negative Normal Negative [facility] Comment on above: Order Comment: Speci men Type: URINE SPECIMENOrdering Facility: [facility] Address: [address] [place] [address] Result Comment: Cuto ff threshold at 200 ng/mL. Performed By: #### U TOX2 ####[facility] LABCLIA [id number] [place] [address] [place] Cannabinoids Screen Ql (U) Negative Normal Negative [facility] Comment on above: Order Comment: Speci men Type: URINE SPECIMENOrdering Facility: [facility] Address: [address] [place] [address] Result Comment: Cuto ff threshold at 50 ng/mL. Performed By: #### U TOX2 ####[facility] LABCLIA [id number] [place] [address] [place] Cocaine Ql (U) Negative Normal Negative [facility] Comment on above: Order Comment: Speci men Type: URINE SPECIMENOrdering Facility: [facility] Address: [address] [place] [address] Result Comment: Cuto ff threshold at 300 ng/mL. Performed By: #### U TOX2 ####[facility] LABCLIA [id number] [place] [address] [place] Ethanol (U) [Mass/Vol] 84 mg/dL High <11 Cl [facility] Comment on above: Order Comment: Speci men Type: URINE SPECIMENOrdering Facility: [facility] Address: [address] [place] [address] Performed By: #### U TOX2 ####[facility] LABIA [id number] [place] [address] [place] Opiates Screen Ql (U) Positive Abnormal Negative [facility] Comment on above: Order Comment: Speci men Type: URINE SPECIMENOrdering Facility: [facility] Address: [address] [place] [address] Result Comment: Cuto ff threshold at 300 ng/mL. Performed By: #### U TOX2 ####[facility] LABIA [id number] [address] [place] oxyCODONE cutoff Screen (U) [Mass/Vol] Negative Normal Negative [facility] Comment on above: Order Comment: Speci men Type: URINE SPECIMENOrdering Facility: [facility] Address: [address] [place] [address] Result Comment: Cuto ff threshold at 100 ng/mL. Performed By: #### U TOX2 ####[facility] LABIA [id number] [address] [place] Phencyclidine Ql (U) Negative Normal Negative [facility] Comment on above: Order Comment: Speci men Type: URINE SPECIMENOrdering Facility: [facility] Address: [address] [place] [address] Result Comment: Cuto ff threshold at 25 ng/mL. Performed By: #### U TOX2 ####[facility] LABCLIA [id number] [place] [id number] [place] CT L-Spine Post Myelogramon 03-14-2023 CT Lumbar spine WO and W contrast IV Please click on the link to view the study images Normal [facility] [place] [address] DO Work Phone: CT Lumbar spine WO and W contrast IV Normal [facility] Work Phone: CT Lumbar spineon 03-14-2023 Radiology Study observation (narrative) [facility] Work Phone: NR CT L-SPINE POST MYELOGRAM on 03-14-[address] L-SPINE POST MYELOGRAM Patient Name: HUE TITUS STUDY: MYELOGRAPHY, LUMBOSACRAL WITH LUMBAR PUNCTURE; CT [facility]; 03/14/2023 12:59 pm; 03/14/2023 1:10 pm INDICATION: right lumbar radiculopathy. History of scoliosis s/p thoracolumbar fusion M54.16: Lumbar radiculopathy, right; right lumbar radiculopathy. History of scoliosis s/p thoracolumbar fusion M54.50: Lumbar pain M54.16: Lumbar radiculopathy, right. COMPARISON: Radiographs of the lumbosacral spine dated 02/10/2023. ACCESSION NUMBER(S): [id number]; [id number] ORDERING CLINICIAN: TERRIE BROWN TECHNIQUE: After discussion [...] foramina. L5-S1: Spinal canal is patent. Mild xrot-bxhnbds-bxvg-rig ht foraminal stenosis secondary to facet hypertrophy [...] headache persists, (more content not included)... Normal [facility] NR MYELO, LUMBOSACRAL WITH L UMBAR PUNCTUREon 03-14-2023 NR MYELO, LUMBOSACRAL WITH LUMBAR PUNCTURE Patient Name: HUE TITUS STUDY: MYELOGRAPHY, LUMBOSACRAL WITH LUMBAR PUNCTURE; CT L[facility]SPINE [facility]; 03/14/2023 12:59 pm; 03/14/2023 1:10 pm INDICATION: right lumbar radiculopathy. History of scoliosis s/p thoracolumbar fusion M54.16: Lumbar radiculopathy, right; right lumbar radiculopathy. History of scoliosis s/p thoracolumbar fusion M54.50: Lumbar pain M54.16: Lumbar radiculopathy, right. COMPARISON: Radiographs of the lumbosacral spine dated 02/10/2023. ACCESSION NUMBER(S): [id number]; [id number] ORDERING CLINICIAN: TERRIE BROWN TECHNIQUE: After discussion [...] foramina. L5-S1: Spinal canal is patent. Mild mndf-tunzxyl-ekkz-rig ht foraminal stenosis secondary to facet hypertrophy [...] headache persists, (more content not included)... Normal [facility] No Panel Informationon 03-[address] [...] This study was performed and interpreted at [facility]. I agree with the procedural description and the findings as stated. [facility] Interpreted By: DINA DENNIS MD and FER GENTILE MD Patient Name: HUE TITUS STUDY: MYELOGRAPHY, LUMBOSACRAL WITH LUMBAR PUNCTURE; CT L[facility]SPINE [facility]; 03/14/2023 12:59 pm; 03/14/2023 1:10 pm INDICATION: right lumbar radiculopathy. History of scoliosis s/p thoracolumbar fusion M54.16: Lumbar radiculopathy, right; right lumbar radiculopathy. History of scoliosis s/p thoracolumbar fusion M54.50: Lumbar pain M54.16: Lumbar radiculopathy, right. COMPARISON: Radiographs of the lumbosacral spine dated 02/10/2023. ACCESSION NUMBER(S): [id number]; [id number] ORDERING CLINICIAN: TERRIE BROWN TECHNIQUE: After discussion [...] foramina. L5-S1: Spinal canal is patent. Mild hkvb-zzlnpsn-tbsj-rig ht foraminal stenosis secondary to facet hypertrophy [...] procedure. Incidental: IUD visualized in the uterus. [facility] Dina Dennis MD - 03/14/2023 Interpreted By: DINA DENNIS MD and FER GENTILE MD Patient Name: HUE TITUS STUDY: MYELOGRAPHY, LUMBOSACRAL WITH LUMBAR PUNCTURE; CT L[facility]SPINE [facility]; 03/14/2023 12:59 pm; 03/14/2023 1:10 pm INDICATION: right lumbar radiculopathy. History of scoliosis s/p thoracolumbar fusion M54.16: Lumbar radiculopathy, right; right lumbar radiculopathy. History of scoliosis s/p thoracolumbar fusion M54.50: Lumbar pain M54.16: Lumbar radiculopathy, right. COMPARISON: Radiographs of the lumbosacral spine dated 02/10/2023. ACCESSION NUMBER(S): [id number]; [id number] ORDERING CLINICIAN: TERRIE BROWN TECHNIQUE: After discussion [...] foramina. L5-S1: Spinal canal is patent. Mild whlf-tkvijse-tcaj-rig ht foraminal stenosis secondary to facet hypertrophy [...] view the study images Normal [facility] [place] [address] DO Work Phone: Normal [facility] Work Phone: No Panel InformationOrdered By: Dina Dennis on 03-14-2023 [facility] Work Phone: RF Guidance for injection of Lumbar spineon 03-14-2023 Radiology Study observation (narrative) [facility] Work Phone: CBCon 03-12-2023 Erythrocyte distribution width (RBC) [Ratio] 13.9 % Normal 11.5 - 14.5 [facility] Comment on above: Performed By: #### C BC #### [address] [id number] Hematocrit (Bld) [Volume fraction] 39.3 % Normal 36.0 - 46.0 [facility] Comment on above: Performed By: #### C BC #### [address] [id number] Hemoglobin (Bld) [Mass/Vol] 12.8 g/dL Normal 12.0 - 16.0 [facility] Comment on above: Performed By: #### C BC #### [address] [id number] MCHC (RBC) [Mass/Vol] 32.6 g/dL Normal 32.0 - 36.0 [facility] Comment on above: Performed By: #### C BC #### [address] [id number] MCV (RBC) [Entitic vol] 96 fL Normal 80 - 100 [facility] Comment on above: Performed By: #### C BC #### [address] [id number] Platelets (Bld) [#/Vol] 335 10*3/uL Normal 150 - 450 [facility] Comment on above: Performed By: #### C BC #### [address] [id number] RBC 4.11 x10E12/L Normal 4.00 - 5.20 [facility] Comment on above: Performed By: #### C BC #### [address] [id number] WBC (Bld) [#/Vol] 13.6 10*3/uL High 4.4 - 11.3 [facility] Comment on above: Performed By: #### C BC #### [address] [id number] Laboratory - Coagulationon 0 03-12-2023 INR Coag (PPP) [Relative time] 1.0 {INR} 0.9 - 1.1 [facility] [place] [address] DO Work Phone: PT Coag (PPP) [Time] 11.1 s 9.8 - 12.8 [facility] 1100 DO Work Phone: Comment on above: Note new reference r clay as of 02/22/2023 at 10:00am. Laboratory - Hematology and Cell countson 03-12-2023 Erythrocyte distribution width (RBC) [Ratio] 13.9 % See Below [facility] [place] [address] DO Work Phone: Comment on above: Reference Range: 11. 5 - 14.5 Hematocrit (Bld) [Volume fraction] 39.3 % See Below [facility] 1100 DO Work Phone: Comment on above: Reference Range: 36. 0 - 46.0 Hemoglobin (Bld) [Mass/Vol] 12.8 g/dL See Below [facility] 1100 DO Work Phone: Comment on above: Reference Range: 12. 0 - 16.0 MCHC (RBC) [Mass/Vol] 32.6 g/dL See Below [facility] [place] 1100 DO Work Phone: Comment on above: Reference Range: 32. 0 - 36.0 MCV (RBC) [Entitic vol] 96 fL 80 - 100 [facility] [place] 1100 DO Work Phone: Platelets (Bld) [#/Vol] 335 10*3/uL 150 - 450 [facility] [place] 1099 DO Work Phone: RBC (Bld) [#/Vol] 4.11 {x10E12/L} See Below [facility] [place] 1100 DO Work Phone: Comment on above: Reference Range: 4.0 0 - 5.20 WBC (Bld) [#/Vol] 13.6 10*3/uL above high threshold 4.4 - 11.3 [facility] [place] 1099 DO Work Phone: PT/INRon 03-12-2023 PT Coag (PPP) [Time] 11.1 s Normal 9.8 - 12.8 [facility] Comment on above: Result Comment: Note new reference range as of 02/22/2023 at 10:00am. Performed By: #### P TINR #### [address] [id number] PT, INR 1.0 Normal 0.9 - 1.1 [facility] Comment on above: Performed By: #### P TINR #### [address] [id number] CNOVon 03-03-2023 CNOV Office Visit ([facility] ) HUE TITUS ([id number]) 1990 F CHT Date Time Provider Department [...] 02/13/2023 (approximate). Informed Consent Consent Obtained: Written [place] Protocol A moment to CARE was completed. [...] Aria Izquierdo PA-C Referring Provider: ARIA IZQUIERDO [[id number]] Allergies As of Date: 03/03/2023 (No Known Allergies) Date Reviewed: 03/03/2023 Reviewed by: Aria Izquierdo PA-C - Fully Assessed Reason for Visit: Insertion Of IUD [291] Primary Visit Diagnosis:Encounter for IUD insertion [Z30.430] Order(s):HCG QUAL UR B/O [3026825] Order #: [id number] [] levonorgestrel 21 mcg/24 hours (8 yrs) 52 mg 1 Each intrauterine device (MIRENA)Disp: Rfl: IUD INSERTION [PRO92] Order #: [id number] Prescriptions as of 03/18/2023 - pregabalin (LYRICA) [...] Route: I (more content not included)... Normal [facility] CNOVon 02-22-2023 CNOV Office Visit ([facility] ) HUE TITUS ([id number]) 1990 F T Date Time Provider Department 02/22/23 2:00 PM ASHWINI MTAUTE INDEJOSE During your visit today, we recorded the following information about you: Pulse Blood pressure Weight Height 90/minute 110/79 56.2 kg 1.702 m Ashwini Matute PA-C 02/22/2023 3:32 PM Signed This note was created using Vendormateriter. Subjective Hue Titus is a 32 year [...] pain. She has started seeing a new crime specialist at . Past Medical History: PAST MEDICAL HISTORY Diagnosis Date ADHD (attention deficit hyperactivity disorder) Ovarian cyst PAF (paroxysmal atrial fibrillation) ([facility]) 07/2022 follows with cardiology Scoliosis SVT, lower extremity ([facility]) 2018 ASA only no anticoagulants Past Surgical [...] no longer seeing her previous PCP in [place]. 3. Vitamin D deficiency - ICD9: 268.9, ICD10: E55.9 Start high dose vitamin D once weekly. Rx sent in. RICHIE Velasco (more content not included)... Normal [facility] 25(OH)D3 SerPl-Luison 2022 25-hydroxyvitamin D3 [Mass/Vol] 24.8 ng/mL Low 31.0-80.0 [facility] Comment on above: Order Comment: Speci men Type: BLOOD SPECIMENOrdering Facility: [facility] Address: [address] [place] [address] Result Comment: Clas sification of 25 OH Vitamin D status: Deficiency/Insufficiency: < or = 30 ng/ml. Sufficiency/Optimal Levels: 31-80 ng/mL Toxicity: > 100 ng/mL. Test performed by chemiluminescent immunoassay. Performed By: #### 1 989-3 ####[facility] LABCLIA [id number] [place] [address] [place] CBC W Auto Differential pane l (Bld)on 02-15-2023 Basophils (Bld) [#/Vol] 0.04 10*3/uL Normal <0.11 [facility] Comment on above: Order Comment: Speci men Type: BLOOD SPECIMENOrdering Facility: [facility] Address: [address] [place] [address] Performed By: #### 5 7021-8 ####[facility] LABCLIA [id number] [place] [address] [place] Basophils/100 WBC (Bld) 0.5 % Normal [facility] Comment on above: Order Comment: Speci men Type: BLOOD SPECIMENOrdering Facility: [facility] Address: [address] [place] [address] Performed By: #### 5 7021-8 ####[facility] LABCLIA [id number] [place] [address] [place] Differential cell count method Nom (Bld) Auto Normal [facility] Comment on above: Order Comment: Speci men Type: BLOOD SPECIMENOrdering Facility: [facility] Address: [address] Performed By: #### 5 7021-8 ####[facility] LABCLIA [id number] [place] [address] [place] Eosinophils (Bld) [#/Vol] 0.12 10*3/uL Normal <0.46 [facility] Comment on above: Order Comment: Speci men Type: BLOOD SPECIMENOrdering Facility: [facility] Address: [address] [place] [address] Performed By: #### 5 7021-8 ####[facility] LABCLIA [id number] [address] [place] Eosinophils/100 WBC (Bld) 1.6 % Normal [facility] Comment on above: Order Comment: Speci men Type: BLOOD SPECIMENOrdering Facility: [facility] Address: [address] Performed By: #### 5 7021-8 ####[facility] LABCLIA [id number] [place] [address] [place] Erythrocyte distribution width (RBC) [Ratio] 13.7 % Normal 11.5-15.0 [facility] Comment on above: Order Comment: Speci men Type: BLOOD SPECIMENOrdering Facility: [facility] Address: [address] Performed By: #### 5 7021-8 ####[facility] LABCLIA [id number] [place] [address] [place] Hematocrit (Bld) [Volume fraction] 38.1 % Normal 36.0-46.0 [facility] Comment on above: Order Comment: Speci men Type: BLOOD SPECIMENOrdering Facility: [facility] Address: [address] Performed By: #### 5 7021-8 ####[facility] LABCLIA [id number] [place] [address] [place] Hemoglobin (Bld) [Mass/Vol] 12.7 g/dL Normal 11.5-15.5 [facility] Comment on above: Order Comment: Speci men Type: BLOOD SPECIMENOrdering Facility: [facility] Address: [address] [place] [address] Performed By: #### 5 7021-8 ####[facility] LABCLIA [id number] [place] [address] [place] Immature granulocytes (Bld) [#/Vol] 0.09 10*3/uL Normal <0.10 [facility] Comment on above: Order Comment: Speci men Type: BLOOD SPECIMENOrdering Facility: [facility] Address: [address] [place] [address] Performed By: #### 5 7021-8 ####[facility] LABCLIA [id number] [place] [address] [place] Immature granulocytes/100 WBC (Bld) 1.2 % Normal [facility] Comment on above: Order Comment: Speci men Type: BLOOD SPECIMENOrdering Facility: [facility] Address: [address] [place] [address] Performed By: #### 5 7021-8 ####[facility] LABCLIA [id number] [place] [address] [place] Lymphocytes (Bld) [#/Vol] 2.77 10*3/uL Normal 1.00-4.00 [facility] Comment on above: Order Comment: Speci men Type: BLOOD SPECIMENOrdering Facility: [facility] Address: [address] [place], [place] [address] Performed By: #### 5 7021-8 ####[facility] LABCLIA [id number] [place] [address] [place] Lymphocytes/100 WBC (Bld) 37.6 % Normal [facility] Comment on above: Order Comment: Speci men Type: BLOOD SPECIMENOrdering Facility: [facility] Address: [address] Performed By: #### 5 7021-8 ####[facility] LABIA [id number] [address] [place] MCH (RBC) [Entitic mass] 30.2 pg Normal 26.0-34.0 [facility] Comment on above: Order Comment: Speci men Type: BLOOD SPECIMENOrdering Facility: [facility] Address: [address] Performed By: #### 5 7021-8 ####[facility] [id number] [address] [place] MCHC (RBC) [Mass/Vol] 33.3 g/dL Normal 30.5-36.0 [facility] Comment on above: Order Comment: Speci men Type: BLOOD SPECIMENOrdering Facility: [facility] Address: [address] [place], [place] [address] Performed By: #### 5 7021-8 ####[facility] [id number] [address] [place] MCV (RBC) [Entitic vol] 90.7 fL Normal 80.0-100.0 [facility] Comment on above: Order Comment: Speci men Type: BLOOD SPECIMENOrdering Facility: [facility] Address: [address] Performed By: #### 5 7021-8 ####[facility] LABIA [id number] [place] [address] [place] Monocytes (Bld) [#/Vol] 0.80 10*3/uL Normal <0.87 [facility] Comment on above: Order Comment: Speci men Type: BLOOD SPECIMENOrdering Facility: [facility] Address: [address] [place], [place] [address] Performed By: #### 5 7021-8 ####[facility] LABCLIA [id number] [place] [address] [place] Monocytes/100 WBC (Bld) 10.9 % Normal [facility] Comment on above: Order Comment: Speci men Type: BLOOD SPECIMENOrdering Facility: [facility] Address: [address] [place], [place] [address] Performed By: #### 5 7021-8 ####[facility] LABCLIA [id number] [place] [address] [place] Neutrophils (Bld) [#/Vol] 3.55 10*3/uL Normal 1.45-7.50 [facility] Comment on above: Order Comment: Speci men Type: BLOOD SPECIMENOrdering Facility: [facility] Address: [address] [place], [place] [address] Performed By: #### 5 7021-8 ####[facility] LABCLIA [id number] [place] [address] [place] Neutrophils/100 WBC (Bld) 48.2 % Normal [facility] Comment on above: Order Comment: Speci men Type: BLOOD SPECIMENOrdering Facility: [facility] Address: [address] [place] [address] Performed By: #### 5 7021-8 ####[facility] LABCLIA [id number] [place] [address] [place] Nucleated RBC (Bld) [#/Vol] 10*3/uL Normal <0.01 [facility] Comment on above: Order Comment: Speci men Type: BLOOD SPECIMENOrdering Facility: [facility] Address: [address] [place], [place] [address] Performed By: #### 5 7021-8 ####[facility] LABCLIA [id number] [place] [address] [place] Nucleated RBC/100 WBC (Bld) [Ratio] 0.0 /100 WBC Normal [facility] Comment on above: Order Comment: Speci men Type: BLOOD SPECIMENOrdering Facility: [facility] Address: [address] [place] [address] Performed By: #### 5 7021-8 ####[facility] LABCLIA [id number] [place] [address] [place] Platelet mean volume (Bld) [Entitic vol] 9.4 fL Normal 9.0-12.7 [facility] Comment on above: Order Comment: Speci men Type: BLOOD SPECIMENOrdering Facility: [facility] Address: [address] [place], [place] [address] Performed By: #### 5 7021-8 ####[facility] LABCLIA [id number] [place] [address] [place] Platelets (Bld) [#/Vol] 493 10*3/uL High 150-400 [facility] Comment on above: Order Comment: Speci men Type: BLOOD SPECIMENOrdering Facility: [facility] Address: [address] [place], [place] [address] Performed By: #### 5 7021-8 ####[facility] LABCLIA [id number] [place] [address] [place] RBC (Bld) [#/Vol] 4.20 10*6/uL Normal 3.90-5.20 [facility] Comment on above: Order Comment: Speci men Type: BLOOD SPECIMENOrdering Facility: [facility] Address: [address] [place] [address] Performed By: #### 5 7021-8 ####[facility] LABCLIA [id number] [place] [address] [place] WBC (Bld) [#/Vol] 7.37 10*3/uL Normal 3.70-11.00 [facility] Comment on above: Order Comment: Speci men Type: BLOOD SPECIMENOrdering Facility: [facility] Address: [address] [place] [address] Performed By: #### 5 7021-8 ####[facility] LABCLIA [id number] [place] [address] [place] Comprehensive metabolic 2000 panelon 02-15-2023 Albumin [Mass/Vol] 4.4 g/dL Normal 3.9-4.9 [facility] Comment on above: Order Comment: Speci men Type: BLOOD SPECIMENOrdering Facility: [facility] Address: [address] [address] Performed By: #### 3 016-3, 2132-05, ####[facility] LABIA [id number] [place] [address] [place] ALP [Catalytic activity/Vol] 89 U/L Normal 34-123 [facility] Comment on above: Order Comment: Speci men Type: BLOOD SPECIMENOrdering Facility: [facility] Address: [address] [place] [address] Performed By: #### 3 016-3, 2132-05, ####[facility] LABIA [id number] [address] [place] ALT [Catalytic activity/Vol] 13 U/L Normal 7-38 [facility] Comment on above: Order Comment: Speci men Type: BLOOD SPECIMENOrdering Facility: [facility] Address: [address] Performed By: #### 3 016-3, 2132-05, ####[facility] LABIA [id number] [place] [address] [place] Anion gap [Moles/Vol] 12 mmol/L Normal 9-18 [facility] Comment on above: Order Comment: Speci men Type: BLOOD SPECIMENOrdering Facility: [facility] Address: [address] Performed By: #### 3 016-3, 2132-05, ####[facility] LABIA [id number] [place] [address] [place] AST [Catalytic activity/Vol] 24 U/L Normal 13-35 [facility] Comment on above: Order Comment: Speci men Type: BLOOD SPECIMENOrdering Facility: [facility] Address: [address] Performed By: #### 3 016-3, 2132-05, ####[facility] LABIA [id number] [place] [address] [place] Bilirubin [Mass/Vol] 0.3 mg/dL Normal 0.2-1.3 [facility] Comment on above: Order Comment: Speci men Type: BLOOD SPECIMENOrdering Facility: [facility] Address: [address] [place] [address] Performed By: #### 3 016-3, 2132-05, ####[facility] LABIA [id number] [place] [address] [place] Calcium [Mass/Vol] 10.5 mg/dL High 8.5-10.2 [facility] Comment on above: Order Comment: Speci men Type: BLOOD SPECIMENOrdering Facility: [facility] Address: [address] [place] [address] Performed By: #### 3 016-3, 2132-05, ####[facility] LABIA [id number] [place] [address] [place] Chloride [Moles/Vol] 102 mmol/L Normal 97-105 [facility] Comment on above: Order Comment: Speci men Type: BLOOD SPECIMENOrdering Facility: [facility] Address: [address] Performed By: #### 3 016-3, 2132-05, ####[facility] LABCLIA [id number] [place] [address] [place] CO2 [Moles/Vol] 25 mmol/L Normal 22-30 [facility] Comment on above: Order Comment: Speci men Type: BLOOD SPECIMENOrdering Facility: [facility] Address: [address] [place] [address] Performed By: #### 3 016-3, 2132-05, ####[facility] LABIA [id number] [place] [address] [place] Creatinine [Mass/Vol] 0.77 mg/dL Normal 0.58-0.96 [facility] Comment on above: Order Comment: Speci men Type: BLOOD SPECIMENOrdering Facility: [facility] Address: [address] [place] [address] Performed By: #### 3 016-3, 2132-05, ####[facility] LABIA [id number] [place] [address] [place] ESTIMATED GLOMERULAR FILTRATION RATE 106 mL/min/1.73m??? Normal >=60 [facility] Comment on above: Order Comment: Speci men Type: BLOOD SPECIMENOrdering Facility: [facility] Address: [address] [place] [address] Result Comment: Anabela mated Glomerular Filtration Rate [...] Performed By: #### 3 016-3, 2132-05, ####[facility] LABIA [id number] [place] [address] [place] Glucose [Mass/Vol] 98 mg/dL Normal 74-99 [facility] Comment on above: Order Comment: Speci men Type: BLOOD SPECIMENOrdering Facility: [facility] Address: [address] [place] [address] Result Comment: The [place] Diabetes Association (ADA) [...] Performed By: #### 3 016-3, 2132-05, ####[facility] LABCLIA [id number] [place] [address] [place] Potassium [Moles/Vol] 4.4 mmol/L Normal 3.7-5.1 [facility] Comment on above: Order Comment: Speci men Type: BLOOD SPECIMENOrdering Facility: [facility] Address: [address] [place], [place] [address] Performed By: #### 3 016-3, 2132-05, ####[facility] LABIA [id number] [place] [id number] [place] Protein [Mass/Vol] 7.9 g/dL Normal 6.3-8.0 [facility] Comment on above: Order Comment: Speci men Type: BLOOD SPECIMENOrdering Facility: [facility] Address: [address] [place], [place] [address] Performed By: #### 3 016-3, 2132-05, ####[facility] LABCLIA [id number] [place] [address] [place] Sodium [Moles/Vol] 139 mmol/L Normal 136-144 [facility] Comment on above: Order Comment: Dada arenas Type: BLOOD SPECIMENOrdering Facility: [facility] Address: [address] [place] [address] Performed By: #### 3 016-3, 2132-05, ####[facility] LABCLIA [id number] [place] [address] [place] Urea nitrogen [Mass/Vol] 16 mg/dL Normal 7-21 [facility] Comment on above: Order Comment: Dada arenas Type: BLOOD SPECIMENOrdering Facility: [facility] Address: [address] [place] [address] Performed By: #### 3 016-3, 2132-05, ####[facility] LABCLIA [id number] [place] [address] [place] TSH SerPl-aCncon 02-15-2023 TSH Qn 1.760 m[IU]/L Normal 0.270-4.200 [facility] Comment on above: Order Comment: Dada arenas Type: BLOOD SPECIMENOrdering Facility: [facility] Address: [address] [place] [address] Result Comment: If t he patient is , TSH reference range varies by gestational period: First Trimester (weeks 9-12): 0.180-2.990 mIU/L Second Trimester: 0.110-3.980 mIU/L Third Trimester: 0.480-4.710 mIU/L Pedro Lim et al. A Practical Approach for the Verifications and Determination of Site- and Trimester-Specific Reference Intervals for Thyroid Function tests in . Thyroid, 2019:29:3:412-420. Jam Pacheco et al. 2017 Guidelines of the [place] Thyroid Association for the Diagnosis and Management of Thyroid Disease during and the . Thyroid, 2017:27:3:315-389. Performed By: #### 3 016-3, 2132-05, ####[facility] LABCLIA [id number] [address] [address] [facility] OF [place] Vit B12 [facility] 02-15- 023 Cobalamin (Vitamin B12) [Mass/Vol] 1090 pg/mL Normal 232-1245 [facility] Comment on above: Order Comment: Speci men Type: BLOOD SPECIMENOrdering Facility: [facility] Address: [address] [place] [address] Performed By: #### 3 016-3, 2132-9, 19763-9 ####[facility] LABCLIA [id number] [address] OF [place] Established Visit (Orthopaed ic Surgery)on 02-10-2023 Established Visit (Orthopaedic Surgery) Diagnoses/Problems Assessed Lumbar radiculopathy, right (724.4) (M54.16) Lumbar pain (724.2) (M54.50) Orders Lumbar pain, Lumbar radiculopathy, right CT L-Spine Post Myelogram; Status:Active; Requested for:[id number]; Patient taking Metformin or Derivatives? : No Radiologist to Determine Optimal Study : Y What are the patient's signs and symptoms? : right lumbar radiculopathy. History of scoliosis s/p thoracolumbar fusion Lumbar radiculopathy, right Xray Myelography Lumbosacral with LP; Status:Active; Requested for:[id number]; Radiologist to Determine Optimal Study : Y [...] Oral Tablet Vitamin D (Ergocalciferol) 1.25 MG (67556 UT) Oral Capsule Signatures Electronically signed by : Terrie Brown MD; Mar 11 2023 5:08PM EST (Author) Normal [employer] Initial Visit (Orthopaedic S urgery)on 02-10-2023 Initial [...] around 2018 in 2019 while living in [place] she was seeing pain management who tried caudal injections which did not help. She is also tried multiple medications such as Cymbalta and Lyrica without any relief. She was started on gabapentin which initially did provide relief of her leg pain but now she still has a lot of foot pain. She describes as a burning sensation. She then since moved back to [place] and has been seeing physicians at [facility]. Most of her care is done at [facility]. She was seeing pain management with [...] started taking yet. 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 She does not smoke occasionally drinks alcohol [...] easy bruis (more content not included)... Normal [employer] No Panel Informationon 02-10 Normal [facility]-Orthopaedi [employer] Work Phone: SPINE, LUMBOSACRAL; MIN 4 EWSon 02-10-2023 SPINE, LUMBOSACRAL; MIN 4 VIEWS Patient Name: HUE TITUS STUDY: SPINE, LUMBOSACRAL MIN 4 VIEWS; 02/10/2023 1:48 pm INDICATION: LUMBAR PAIN M54.50: Lumbar pain. COMPARISON: None. ACCESSION NUMBER(S): [id number] ORDERING CLINICIAN: TERRIE BROWN FINDINGS: Lumbar spine, [...] L5-S1 Electronically signed by: JACQUELINE GLORIA MD [facility] CNOVon 02-08-2023 [facility] HUE TITUS ([id number]) 1990 [facility] Date Time Provider Department 02/08/23 3:20 PM CHITRA BURNETT NVTAIWO During your visit today, we recorded the [...] spine ordered - has not yet called [place] to schedule. She's concerned if something may [...] THORACIC GENERAL 3V AP/LAT/SWIMMERS Chitra Burnett PA-C Allergies As of Date: 02/08/2023 (No Known Allergies) Date Reviewed: 02/08/2023 Reviewed by: Bert White MA - Fully Assessed Reason for Visit: Back Pain [Other] Cmt: Started last Tuesday. Right side below shoulder blade. Hurts to lift arm. Hurts to breathe. Concerned with spine due to Scoliosis Primary Visit Diagnosis:Upper back pain on right side [M54.9] Order(s):XR SCAPULA 2V AP/LAT RIGHT [[id number]] Order #: [id number] FUTURE XR THORACIC GENERAL 3V AP/LAT/SWIMMERS [[id number]] Order #: [id number] FUTURE Prescriptions as of 02/08/2023 - dextroamphetamine-amp [...] [I48.0] 09/27/2022 (more content not included)... Normal [facility] Panel Informationon 02-08 [facility] XR SCAPULA 2V AP/LAT RTon [...] definite scapular fracture. IMPRESSION: Please see result. Rating Clerk: [facility] Transcribe Date/Time: Feb 08 2023 4:22P Dictated by : ASHLEY MIRANDA MD This examination was interpreted and the report reviewed and electronically signed by: ASHLEY MIRANDA MD on Feb 08 2023 4:23PM EST [id number] N Normal [facility] XR THORACIC 3V AP/LAT/SWIMME RSon 02-08-2023 [...] definite scapular fracture. IMPRESSION: Please see result. Rating Clerk: [facility] Transcribe Date/Time: Feb 08 2023 4:22P Dictated by : ASHLEY MIRANDA MD This examination was interpreted and the report reviewed and electronically signed by: ASHLEY MIRANDA MD on Feb 08 2023 4:23PM EST [id number] N Normal [facility] CNOVon 02-04-2023 CNOV Office Visit ([facility] ) HUE TITUS ([id number]) 1990 F T Date Time Provider Department [...] yet. 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 She's currently followed by Dr Dennis for pain management and Spine. She reports Dr Dennis told her there's nothing additional he can do for her so she didn't think she would need to follow up. She had a CT Myelogram ordered by [facility] Spine - but it was scheduled in [place] as a traditional CT so it was [...] the Rx since she now lives in [place] Review of Systems All other systems reviewed [...] PCP out of state. Pt will call [facility] [place] CT scheduling to set up the CT myelogram appropriately. LEA Olivarez-C Allergies As of Date: 02/04/2023 (No Known [...] Encounter Prescripti (more content not included)... Normal [facility] CNOVon 02-03-2023 [facility] HUE [facility]ITUS ([id number]) 1990 [facility] Date Time Provider Department 02/03/23 3:00 PM [facility] During your visit today, we recorded the [...] disorder) Ovarian cyst PAF (paroxysmal atrial fibrillation) ([facility]) 07/2022 follows with cardiology Scoliosis SVT, lower extremity ([facility]) 2019 ASA only no anticoagulants PAST SURGICAL [...] the second pill 8-10 hours prior to CONDENSER SETTER appt for cervical dilation. metoprolol tartrate, short [...] of this record were documented by the [employer]. I, Aria Izquierdo, have reviewed this information as documented for accuracy and performed all elements of history taking, and edited the record as necessary. ROS: SEE HPI PE: GENERAL: well-appearing, in no acute distress LUNGS: Normal inspiratory effort CONDENSER SETTER: deferred NEURO: Awake, alert and oriented A/P: [...] the date of the service which included [id number] patient care, completing clinical documentation, counseling and educating the patient/family/caregi hussain, and ordering medications, tests, or procedures. Referring Provider: ASHWINI MATUTE [[id number]] Allergies As of Date: 02/03/2023 (No Known Allergies) Date Reviewed: 02/03/2023 Reviewed by: Aria Izquierdo PA-C - Fully Assessed Reason for Visit: Well Woman [1463] Visit Diagnosis:Counseling for control regarding intrauterine device (IUD) [Z30.09] Order(s):CONSULT TO CHEMISTRY INSTRUCTOR [9021] Order #: [id number]: 1 miSOPROStol (CYTOTEC) 200 mcg tablet1 tablet as directed. Take by mouth 2 days prior to appt, and the second pill 8-10 hours prior to CONDENSER SETTER appt for cervical dilation.Disp: 2 tabletRfl: 0 INSERT INTRAUTERINE DEVICE [[id number]] Order #: [id number] Prescriptions as of 02/03/2023 - miSOPROStol (CYTOTEC) 200 mcg tablet 1 tablet as directed. Take by mouth 2 days prior to appt, and the second pill 8-10 hours prior to CONDENSER SETTER appt for cervical dilation. - dextroamphetamine-amp hetamine [...] as of (more content not included)... Normal [facility] CNOVon 01-11-2023 CNOV Office Visit ([facility] ) HUE TITUS ([id number]) 1990 F [facility] Date Time Provider Department 01/11/23 2:00 PM ASHWINI MATUTE During your visit today, we recorded the following information about you: Pulse Blood pressure Weight Height 63/minute 124/80 54 kg 1.702 m Last Period 12/12/22 Ashwini Matute PA-C 01/13/2023 2:09 PM Signed This note was created using Grabbed. Subjective Hue Titus is a 32 year old female. HPI Hue Titus is a 32 year old female who presents today to [facility] care as a new patient. She has a history of juvenile scoliosis and is currently being treated by both crime specialist and pain management. She is on both gabapentin and lyrica for her chronic back pain and recently failed an attempted spinal cord stimulator procedure. She is awaiting additional CT imaging to determine next course of treatment. 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 She recently moved back to the area after living in [place] for over 5 yrs. She complains of [...] (attention deficit hyperactivity disorder) DVT, lower extremity ([facility]) 2018 PAF (paroxysmal atrial fibrillation) ([facility]) 07/2022 follows with cardiology Scoliosis Past Surgical [...] Gastrointestinal: Nega (more content not included)... Normal [facility] 01-11-2023 [facility] HUE [facility]ITUS ([id number]) 1990 F T Date Time Provider Department 01/11/23 YUE DAHL [facility] During your visit today, we recorded the following information about you: SALUD Reeves 01/11/2023 3:27 PM Signed Behavioral Health Social Work Progress Note Patient identified for [facility] from: PCP Reason for referral: [facility] Behavioral Health Resources: Psychology - talk therapy [facility] encounter type: Telephone Encounter, Adriano Message Attempts to Outreach: 1 attempt Referral made: Psychology - External Psychology-External referral type: Therapy Reason for external referral: Patient seeking [facility]p support Final Disposition: Resources given Patient Discharged?: Yes Patient reported that caregiver was able to meet their needs today?: Yes [facility] consult received for anxiety and depression. [facility] placed telephone call at the request of the PCP to discuss behavioral health needs and provide referrals for outpatient support. Patient states she is looking to establish with a therapy provider. Would like telephone number to schedule within [facility] and externally. Will send the following: [facility] Psychiatry and Counseling Central Scheduling Call Center [phone] [facility] ([place]) [phone] [facility] ([place]) Counseling only [phone] [facility] ([place]) Counseling only [phone] [facility] ([place]) Counseling only [phone] [facility] ([place]) [phone] Extension: [phone] Flaco Scott, [facility] ([place]) Counseling only [phone] [facility] [place] ([place]) Counseling only [phone] [facility] ([place]) Counseling only [phone] [facility] ([place]) [phone] [facility] ([place]) [phone] [employer] [facility] ([place]) Counseling only [phone] [place] [facility] [place] ([place]) Counseling only [phone] [facility] Counseling [facility] ([place]) Counseling only [phone] [facility] ([place]) [phone] [facility] ([place]) Counseling only [phone] [facility]ing and Growth [place] ([place]) Counseling only [phone] [employer] ([place]) Counseling only [phone] [facility] [phone] Psych AND Psych Services ([place]) Counseling only [phone] [facility] ([place]) Counseling only [phone] [facility] ([place]) Counseling only [phone] [facility]ing ([place]) Counseling only [phone] SALUD Reeves, AC- January 11, 2023 Allergies As of Date: 01/11/2023 (No Known Allergies) Date Reviewed: 01/11/2023 Reviewed by: Josh Han - Fully Assessed Reason for Visit: Behavioral Health/Social Work [6665] Prescriptions as of 01/11/2023 - dextroamphetamine-amp hetamine [...] Encounter Status:Closed by YUE DAHL on 01/11/23 [facility] CNCOon 01-07-2023 CNCO Letter Text [facility] CNPKaryn 12-31-2022 CNPN Telephone ([facility]) LITOHUE ([id number]) 1990 F CHT Date Time Provider Department 12/31/22 MARCO SLADE [facility] During your visit today, we recorded the [...] information and she verbalized understanding. Tatum Santos [facility] 01/07/2023 8:51 AM Signed Hi. The order for Ct Myelogram thoracic is in [facility] but it is not dropping so the scan can be scheduled. Maybe (looks like) in the priority and order details Priority is routine but Class looks to be the reason its not dropping. Today appt has been cancelled as she is scheduled incorrectly. Also this Ct scan can not be scheduled at [place]. Thank you Scheduling line [id number] Marco Slade DO 01/07/2023 12:25 PM Signed Addended by: MARCO SLADE on: 01/07/2023 12:25 PM Modules accepted: Orders Ivanna Jj RN 01/07/2023 3:41 PM Addendum Spoke to Ivanna in CT she said everything looks good as far as order for CT Myelogram she is going to send a message to one of her leads to have them call patient to schedule. Inna Carnes [facility] 01/07/2023 3:54 PM Signed [...] to call office back or can read [employer] message. Allergies As of Date: 12/31/2022 (No Known Allergies) Date Reviewed: 12/22/2022 Reviewed by: Leola Jansen MA - Fully Assessed Reason for Visit: Scans [867] Primary Visit Diagnosis:Chronic bilateral low back pain with right-sided sciatica [M54.41, G89.29] Other Visit Diagnoses:Juvenile idiopathic scoliosis of thoracolumbar region [M41.115] Arthrodesis status [Z98.1] Order(s):CT MYELOGRAM THORACIC [[id number]] Order #: [id number] IR XR INJ MYELOGRAM [[id number]] Order #: [id number] CT MYELOGRAM LUMBAR [[id number]] Order #: [id number] IR XR INJ MYELOGRAM [[id number]] Order #: [id number] Prescriptions as of 01/18/2023 - dextroamphetamine-amp hetamine [...] mL (BD (more content not included)... Normal [facility] Renal function 2000 panelon 12-23-2022 Albumin [Mass/Vol] 4.4 g/dL 3.9 - 4.9 g/dL [facility] Anion gap [Moles/Vol] 9 mmol/L 9 - 18 mmol/L [facility] Calcium [Mass/Vol] 9.4 mg/dL 8.5 - 10. 2 mg/dL [facility] Chloride [Moles/Vol] 102 mmol/L 97 - 10 5 mmol/L [facility] CO2 [Moles/Vol] 28 mmol/L 22 - 30 mmol/L [facility] Creatinine [Mass/Vol] 0.72 mg/dL 0.58 - 0.96 mg/dL [facility] Estimated Glomerular Filtration Rate 115 mL/min/1.73m >=60 mL/min/1.73m [facility] Glucose [Mass/Vol] 82 mg/dL 74 - 99 mg/dL [facility] Phosphate [Mass/Vol] 3.1 mg/dL 2.7 - 4 .8 mg/dL [facility] Potassium [Moles/Vol] 4.4 mmol/L 3.7 - 5.1 mmol/L [facility] Sodium [Moles/Vol] 139 mmol/L 136 - 144 mmol/L [facility] Urea nitrogen [Mass/Vol] 13 mg/dL 7 - 21 mg/dL [facility] CNOVon 12-22-2022 CNOV Office Visit ([facility] ) HUE TITUS ([id number]) 1990 F T Date Time Provider Department 12/22/22 8:00 AM MARCO SLADE During your visit today, we recorded the following information about you: Pulse Respiration Blood pressure Weight 67/minute 16/minute 129/87 50.8 kg Height 1.715 m Marco Slade DO 12/26/2022 9:50 PM Signed [facility] Neurological [facility] - [facility] Spine [...] now seeking neurosurgical evaluation for SCS at [facility]. Denies bowel/bladder incontinence or saddle anesthesia. The [...] surgery: -05/16/06 Dr. 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 Manan Garcia at [facility]: T2 to L2 PSF for scoliosis Previously treated by: -Pain Management Dr. Jolly Dennis. -Pain Management Dr. Miguel Angel Pinedo, [facility] in [place] -NSGY Dr. Raymond Sheikh, [facility] in [place] - Rx PT on 02/2022 -Ortho Spine Surgery Dr. Rico Mustafa, [facility] in [place] -NSGY Dr. Shawn Hardin 07/24/21 - no signs of radiculopathy on imaging/EMG, did not recommend surgery; rec SNRB vs SCS. -NSGY Dr. Miguel Angel Allison at [facility] 2005. -NSGY Dr. Manan Garcia at [facility] 2004 PMH: PAF - previously on Eliquis [...] Illicit drugs: no Personal life: Moved to [place] in 2014 then back to [place] from [place] in 2021. 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 Normal [facility] No Panel Informationon 12-22 [facility] Renal function 2000 panelon 12-22-2022 Albumin [Mass/Vol] 4.4 g/dL Normal 3.9-4.9 [facility] Comment on above: Order Comment: Speci men Type: BLOOD SPECIMENOrdering Facility: [facility] Address: [address] [phone] Performed By: #### 2 4362-6 ####[facility] LABCLIA [id number] [place] [address] [place] Anion gap [Moles/Vol] 9 mmol/L Normal 9-18 [facility] Comment on above: Order Comment: Speci men Type: BLOOD SPECIMENOrdering Facility: [facility] Address: [address] [phone] Performed By: #### 2 4362-6 ####[facility] LABCLIA [id number] [place] [address] [place] Calcium [Mass/Vol] 9.4 mg/dL Normal 8.5-10.2 [facility] Comment on above: Order Comment: Speci men Type: BLOOD SPECIMENOrdering Facility: [facility] Address: [address] [place] [address] Performed By: #### 2 4362-6 ####[facility] LABCLIA [id number] [place] [address] [place] Chloride [Moles/Vol] 102 mmol/L Normal 97-105 [facility] Comment on above: Order Comment: Speci men Type: BLOOD SPECIMENOrdering Facility: [facility] Address: [address] [place] [address] Performed By: #### 2 4362-6 ####[facility] LABCLIA [id number] [place] [address] [place] CO2 [Moles/Vol] 28 mmol/L Normal 22-30 [facility] Comment on above: Order Comment: Speci men Type: BLOOD SPECIMENOrdering Facility: [facility] Address: [address] [place], [place] [address] Performed By: #### 2 4362-6 ####[facility] LABCLIA [id number] [place] [address] [place] Creatinine [Mass/Vol] 0.72 mg/dL Normal 0.58-0.96 [facility] Comment on above: Order Comment: Speci men Type: BLOOD SPECIMENOrdering Facility: [facility] Address: [address] [place], [place] [address] Performed By: #### 2 4362-6 ####[facility] LABCLIA [id number] [place] [address] [place] ESTIMATED GLOMERULAR FILTRATION RATE 115 mL/min/1.73m??? Normal >=60 [facility] Comment on above: Order Comment: Dada arenas Type: BLOOD SPECIMENOrdering Facility: [facility] Address: [address] [place] [phone] Result Comment: Anabela mated Glomerular Filtration Rate [...] GFR. Performed By: #### 2 4362-6 ####[facility] LABIA [id number] [place] [address] [place] Glucose [Mass/Vol] 82 mg/dL Normal 74-99 [facility] Comment on above: Order Comment: Dada arenas Type: BLOOD SPECIMENOrdering Facility: [facility] Address: [address] [address] Result Comment: The [employer] (ADA) [...] 1). Performed By: #### 2 4362-6 ####[facility] LABIA [id number] [place] [address] [place] Phosphate [Mass/Vol] 3.1 mg/dL Normal 2.7-4.8 [facility] Comment on above: Order Comment: Dada arenas Type: BLOOD SPECIMENOrdering Facility: [facility] Address: [address] [phone] Performed By: #### 2 4362-6 ####[facility] LABCLIA [id number] [place] [address] [place] Potassium [Moles/Vol] 4.4 mmol/L Normal 3.7-5.1 [facility] Comment on above: Order Comment: Speci men Type: BLOOD SPECIMENOrdering Facility: [facility] Address: [address] Performed By: #### 2 4362-6 ####[facility] LABCLIA [id number] [place] [address] [place] Sodium [Moles/Vol] 139 mmol/L Normal 136-144 [facility] Comment on above: Order Comment: Speci men Type: BLOOD SPECIMENOrdering Facility: [facility] Address: [address] Performed By: #### 2 4362-6 ####[facility] LABCLIA [id number] [place] [address] [place] Urea nitrogen [Mass/Vol] 13 mg/dL Normal 7-21 [facility] Comment on above: Order Comment: Speci men Type: BLOOD SPECIMENOrdering Facility: [facility] Address: [address] Performed By: #### 2 4362-6 ####[facility] LABCLIA [id number] [place] [address] [place] CBC W Auto Differential pane l (Bld)on 07-24-2022 Basophils (Bld) [#/Vol] 0.04 10*3/uL Normal <0.11 [facility] Comment on above: Order Comment: Speci men Type: BLOOD SPECIMEN [facility] Address: [address] Performed By: #### 5 7021-8 #### [facility] CLIA [id number] [address] [place] [address] [place] Basophils/100 WBC (Bld) 0.5 % Normal [facility] Comment on above: Order Comment: Speci men Type: BLOOD SPECIMEN [facility] Address: [address] [address] Performed By: #### 5 7021-8 #### [facility] CLIA [id number] [address] [place] [address] [place] Differential cell count method Nom (Bld) Auto Normal [facility] Comment on above: Order Comment: Speci men Type: BLOOD SPECIMEN [facility] Address: [address] [address] Performed By: #### 5 7021-8 #### [facility] CLIA [id number] [address] [place] [address] [place] Eosinophils (Bld) [#/Vol] 0.14 10*3/uL Normal <0.46 [facility] Comment on above: Order Comment: Speci men Type: BLOOD SPECIMEN [facility] Address: [address] [address] Performed By: #### 5 7021-8 #### [facility] CLIA [id number] [address] [place] Eosinophils/100 WBC (Bld) 1.8 % Normal [facility] Comment on above: Order Comment: Speci men Type: BLOOD SPECIMEN [facility] Address: [address] [address] Performed By: #### 5 7021-8 #### [facility] CLIA [id number] [address] [place] Erythrocyte distribution width (RBC) [Ratio] 12.9 % Normal 11.5-15.0 [facility] Comment on above: Order Comment: Speci men Type: BLOOD SPECIMEN [facility] Address: [address] [address] Performed By: #### 5 7021-8 #### [facility] CLIA [id number] [address] [place] [address] [place] Hematocrit (Bld) [Volume fraction] 38.8 % Normal 36.0-46.0 [facility] Comment on above: Order Comment: Speci men Type: BLOOD SPECIMEN [facility] Address: [address] [address] Performed By: #### 5 7021-8 #### [facility] [place] [id number] [address] [place] [address] [place] Hemoglobin (Bld) [Mass/Vol] 13.0 g/dL Normal 11.5-15.5 [facility] Comment on above: Order Comment: Speci men Type: BLOOD SPECIMEN [facility] Address: [address] [address] Performed By: #### 5 7021-8 #### [facility] [place] [id number] [address] [place] [address] [place] Immature granulocytes (Bld) [#/Vol] 10*3/uL Normal <0.10 [facility] Comment on above: Order Comment: Speci men Type: BLOOD SPECIMEN [facility] Address: [address] [place] [address] Performed By: #### 5 7021-8 #### [facility] [place] [id number] [address] [place] [address] [place] Immature granulocytes/100 WBC (Bld) 0.3 % Normal [facility] Comment on above: Order Comment: Speci men Type: BLOOD SPECIMEN [facility] Address: [address] [address] Performed By: #### 5 7021-8 #### [facility] [place] [id number] [address] [place] [address] [place] Lymphocytes (Bld) [#/Vol] 3.16 10*3/uL Normal 1.00-4.00 [facility] Comment on above: Order Comment: Speci men Type: BLOOD SPECIMEN [facility] Address: [address] [address] Performed By: #### 5 7021-8 #### [facility] IA [id number] [address] Lymphocytes/100 WBC (Bld) 41.5 % Normal [facility] Comment on above: Order Comment: Speci men Type: BLOOD SPECIMEN [facility] Address: [address] [address] Performed By: #### 5 7021-8 #### [facility] IA [id number] [place] [address] [place] MCH (RBC) [Entitic mass] 30.0 pg Normal 26.0-34.0 [facility] Comment on above: Order Comment: Speci men Type: BLOOD SPECIMEN [facility] Address: [address] [address] Performed By: #### 5 7021-8 #### [facility] IA [id number] [address] [place] [address] [place] MCHC (RBC) [Mass/Vol] 33.5 g/dL Normal 30.5-36.0 [facility] Comment on above: Order Comment: Speci men Type: BLOOD SPECIMEN [facility] Address: [address] [address] Performed By: #### 5 7021-8 #### [facility] IA [id number] [address] [place] [address] [place] MCV (RBC) [Entitic vol] 89.6 fL Normal 80.0-100.0 [facility] Comment on above: Order Comment: Speci men Type: BLOOD SPECIMEN [facility] Address: [address] Performed By: #### 5 7021-8 #### [facility] IA [id number] [place] [address] [place] Monocytes (Bld) [#/Vol] 0.88 10*3/uL High <0.87 [facility] Comment on above: Order Comment: Speci men Type: BLOOD SPECIMEN [facility] Address: [address] [address] Performed By: #### 5 7021-8 #### [facility] CLIA [id number] [address] [place] [address] [place] Monocytes/100 WBC (Bld) 11.6 % Normal [facility] Comment on above: Order Comment: Speci men Type: BLOOD SPECIMEN [facility] Address: [address] [address] Performed By: #### 5 7021-8 #### [facility] IA [id number] [address] [place] [address] [place] Neutrophils (Bld) [#/Vol] 3.37 10*3/uL Normal 1.45-7.50 [facility] Comment on above: Order Comment: Speci men Type: BLOOD SPECIMEN [facility] Address: [address] [address] Performed By: #### 5 7021-8 #### [facility] CLIA [id number] [address] [place] [address] [place] Neutrophils/100 WBC (Bld) 44.3 % Normal [facility] Comment on above: Order Comment: Speci men Type: BLOOD SPECIMEN [facility] Address: [address] Performed By: #### 5 7021-8 #### [facility] CLIA [id number] [address] [place] [address] [place] Nucleated RBC (Bld) [#/Vol] 10*3/uL Normal <0.01 [facility] Comment on above: Order Comment: Speci men Type: BLOOD SPECIMEN [facility] Address: [address] [address] Performed By: #### 5 7021-8 #### [facility] CLIA [id number] [address] [place] [address] [place] Nucleated RBC/100 WBC (Bld) [Ratio] 0.0 /100 WBC Normal [facility] Comment on above: Order Comment: Speci men Type: BLOOD SPECIMEN [facility] Address: [address] [address] Performed By: #### 5 7021-8 #### [facility] CLIA [id number] [address] [place] [address] [place] Platelet mean volume (Bld) [Entitic vol] 9.0 fL Normal 9.0-12.7 [facility] Comment on above: Order Comment: Speci men Type: BLOOD SPECIMEN [facility] Address: [address] [address] Performed By: #### 5 7021-8 #### [facility] CLIA [id number] [address] [place] [address] [place] Platelets (Bld) [#/Vol] 347 10*3/uL Normal 150-400 [facility] Comment on above: Order Comment: Speci men Type: BLOOD SPECIMEN [facility] Address: [address] [address] Performed By: #### 5 7021-8 #### [facility] CLIA [id number] [address] [place] [address] [place] RBC (Bld) [#/Vol] 4.33 10*6/uL Normal 3.90-5.20 [facility] Comment on above: Order Comment: Speci men Type: BLOOD SPECIMEN [facility] Address: [address] Performed By: #### 5 7021-8 #### [facility] CLIA [id number] [address] [place] [address] [place] WBC (Bld) [#/Vol] 7.61 10*3/uL Normal 3.70-11.00 [facility] Comment on above: Order Comment: Speci men Type: BLOOD SPECIMEN [facility] Address: [address] [address] Performed By: #### 5 7021-8 #### [facility] CLIA [id number] [address] [place] [address] [place] [facility] [place] Comprehensive metabolic 2000 panelon 07-24-2022 Albumin [Mass/Vol] 4.2 g/dL Normal 3.9-4.9 [facility] Comment on above: Order Comment: Speci men Type: BLOOD SPECIMENOrdering Facility: [facility] Address: [address] [address] Performed By: #### 3 040-3, 87134-5, 01854-6, 3016-3 ####[facility] LABORATORYCLIA [id number] [place] [address] [place] ALP [Catalytic activity/Vol] 49 U/L Normal 34-123 [facility] Comment on above: Order Comment: Speci men Type: BLOOD SPECIMENOrdering Facility: [facility] Address: [address] [address] Performed By: #### 3 040-3, 19938-4, 91657-1, 3016-3 ####[facility] [id number] [place] [address] [place] [facility] ALT [Catalytic activity/Vol] 11 U/L Normal 7-38 [facility] Comment on above: Order Comment: Speci men Type: BLOOD SPECIMENOrdering Facility: [facility] Address: [address] [address] Performed By: #### 3 040-3, 81303-2, 64493-8, 3016-3 ####[facility] LABORATORYCLIA [id number] [place] [address] [place] Anion gap [Moles/Vol] 7 mmol/L Low 9-18 [facility] Comment on above: Order Comment: Speci men Type: BLOOD SPECIMENOrdering Facility: [facility] Address: [address] [address] Performed By: #### 3 040-3, 64657-1, 39185-5, 3 ####[facility] LABORATORYCLIA [id number] [place] [address] [place] AST [Catalytic activity/Vol] 14 U/L Normal 13-35 [facility] Comment on above: Order Comment: Speci men Type: BLOOD SPECIMENOrdering Facility: [facility] Address: [address] [address] Performed By: #### 3 040-3, 16886-1, 84541-7, 3 ####[facility] LAB[facility]ATORYCLIA [id number] [place] [address] [place] Bilirubin [Mass/Vol] 0.3 mg/dL Normal 0.2-1.3 [facility] Comment on above: Order Comment: Speci men Type: BLOOD SPECIMENOrdering Facility: [facility] Address: [address] [address] Performed By: #### 3 040-3, , 72242-6, 3 ####[facility] [id number] [place] [address] [place] Calcium [Mass/Vol] 9.3 mg/dL Normal 8.5-10.2 [facility] Comment on above: Order Comment: Speci men Type: BLOOD SPECIMENOrdering Facility: [facility] Address: [address] [address] Performed By: #### 3 040-3, 74126-5, 09692-7, 3 ####[facility] [id number] [place] [address] [place] Chloride [Moles/Vol] 103 mmol/L Normal 97-105 [facility] Comment on above: Order Comment: Speci men Type: BLOOD SPECIMENOrdering Facility: [facility] Address: [address] Performed By: #### 3 040-3, 41482-7, 86750-5, 3 ####[facility]ORY[facility] [id number] [place] [address] [place] CO2 [Moles/Vol] 29 mmol/L Normal 22-30 [facility] Comment on above: Order Comment: Speci men Type: BLOOD SPECIMENOrdering Facility: [facility] Address: [address] [place] [address] Performed By: #### 3 040-3, 23700-1, 92422-2, 3015-3 ####[facility]ATORYCLIA [id number] [place] [address] [place] Creatinine [Mass/Vol] 0.84 mg/dL Normal 0.58-0.96 [facility] Comment on above: Order Comment: Speci men Type: BLOOD SPECIMENOrdering Facility: [facility] Address: [address] [place] [address] Performed By: #### 3 040-3, 24291-2, 41855-6, 3 ####[facility] [id number] [place] [address] [place] ESTIMATED GLOMERULAR FILTRATION RATE 95 mL/min/1.73m??? Normal >=60 [facility] Comment on above: Order Comment: Speci men Type: BLOOD SPECIMENOrdering Facility: [facility] Address: [address] [place] [address] Result Comment: Anabela mated Glomerular Filtration Rate [...] actual GFR. Performed By: #### 3 040-3, 82546-6, 80746-1, 3015-3 ####[facility]ORY[facility] [id number] [place] [address] [place] Glucose [Mass/Vol] 55 mg/dL Low 74-99 [facility] Comment on above: Order Comment: Speci men Type: BLOOD SPECIMENOrdering Facility: [facility] Address: [address] [facility] [address] [phone] Result Comment: The [place] [employer] (ADA) [...] 2016.39(Suppl 1). Performed By: #### 3 040-3, 73881-6, 00249-8, 6-3 ####[facility]ATORYCLIA [id number] [place] [address] [place] Potassium [Moles/Vol] 3.6 mmol/L Low 3.7-5.1 [facility] Comment on above: Order Comment: Speci men Type: BLOOD SPECIMENOrdering Facility: [facility] Address: [address] [phone] Performed By: #### 3 040-3, 01058-4, 52390-9, 6-3 ####[facility] [id number] [place] [address] [place] Protein [Mass/Vol] 6.9 g/dL Normal 6.3-8.0 [facility] Comment on above: Order Comment: Speci men Type: BLOOD SPECIMENOrdering Facility: [facility] Address: [address] [phone] Performed By: #### 3 040-3, 71870-4, 99619-1, 6-3 ####[facility]ORY[facility] [id number] [place] [address] [place] Sodium [Moles/Vol] 139 mmol/L Normal 136-144 [facility] Comment on above: Order Comment: Speci men Type: BLOOD SPECIMENOrdering Facility: [facility] Address: [address] [address] Performed By: #### 3 040-3, 18240-9, 19017-6, 3016-3 ####[facility] LAB[facility]ATORYCLIA [id number] [place] [address] [place] [facility] Urea nitrogen [Mass/Vol] 13 mg/dL Normal 7-21 [facility] Comment on above: Order Comment: Speci men Type: BLOOD SPECIMENOrdering Facility: [facility] Address: [address] [address] Performed By: #### 3 040-3, 79370-1, 79857-1, 3016-3 ####[facility]ORYCLIA [id number] [place] [address] [place] D dimer FEU PPP-mCncon 07-24 Fibrin D-dimer FEU (PPP) [Mass/Vol] <190 Normal <500 [facility] Comment on above: Order Comment: Speci men Type: BLOOD SPECIMEN [facility] Address: [address] [address] Performed By: #### 4 8065-7 #### [facility] CLIA [id number] [address] [place] [address] [place] ECG COMPLETEon 07-24-2022 ECG COMPLETE Ventricular Rate : 8 8 BPM Atrial Rate : 197 BPM QRS Duration : 100 ms Q-T Interval : 367 ms QTC Calculation(Bazett) : 444 ms Calculated R [place] : 81 degrees Calculated T [place] : 81 degrees Atrial fibrillation RSR' in V1 or V2, probably normal variant Nonspecific T abnrm, anterolateral leads Abnormal ECG 401 no stemi Confirmed by BEN DIAZ MD ([id number]), newspaper managing editor Beatriz Ferguson ([id number]) on 07/24/2022 2:29:25 PM NAME : HUE AGUILAR PID : [id number] : 1990 Gender : Female Race : Unknown ORD : [id number] Procedure Date : Jul 24 2022 04:01:09 Edit Date : Jul 24 2022 14:29:26 Diagnosis: Atrial fibrillation RSR' in V1 or V2, probably normal variant Nonspecific T abnrm, anterolateral leads Abnormal ECG 401 no stemi Confirmed by BEN DIAZ MD ([id number]), newspaper managing editor Beatriz Ferguson ([id number]) on 07/24/2022 2:29:25 PM Test Reason : Chest Pain Location : 302 : ED AVED-14 Overread By : BEN DIAZ MD Edited By : Beatriz Ferguson Referred By : , Acquired by : [id number], [facility] ED NOTEon 07-24-2022 ED NOTE HNO ID: [id number] Author: Brittni Fierro RN Service: ? Author Type: Registered Nurse Type: ED Notes Filed: 07/24/2022 5:12 AM Note Text: Pt given instructions on discharge, medication, and follow-up. Pt educated on when to return to the ED with worsening of symptoms. Pt verbalized understanding with no further questions. Saline lock D/C. Pt ambulated with a steady gait at discharge. Pt discharged home with family. [facility] ED NOTE HNO ID: [id number] Author: Kelli Michel RN Service: ? Author Type: Registered Nurse Type: ED Notes Filed: 07/24/2022 2:58 AM Note Text: Ambulatory to bathroom with steady gait. Attempting urine collection. [facility] ED NOTE HNO ID: [id number] Author: Marjorie Lopez RN Service: ? Author Type: Registered Nurse Type: ED Notes Filed: 07/24/2022 2:36 AM Note Text: See downtime forms. [facility] ED NOTE HNO ID: [id number] Author: Kelli Michel RN Service: ? Author Type: Registered Nurse Type: ED Notes Filed: 07/23/2022 11:14 PM Note Text: Xray at bedside. [facility] ED NOTE HNO ID: [id number] Author: Garry Haro RN Service: Nursing Author Type: Registered Nurse Type: ED Notes Filed: 07/23/2022 10:50 PM Note Text: Pt states palpitations today Plan of care -Monitor Patient's Vital Signs -Monitor pain -Maintain patient safety and privacy -Provide comfort measures as needed -Call light in place -Siderails up, bed in locked and low position. Normal [facility] ED PROV NOTEon 07-24-2022 ED PROV NOTE HNO ID: [id number] Author: Ben Diaz DO Service: Emergency Medicine [...] following components: Result Value Ref Range Abs Ector 0.88 (*) <0.87 k/uL All other components [...] years wi (more content not included)... Normal [facility] EKGon 07-24-2022 Electrocardiogram Ventricular Rate : 130 BPM Atrial Rate : 138 BPM QRS Duration : 78 ms Q-T Interval : 300 ms QTC Calculation(Bazett) : 441 ms Calculated R [place] : 77 degrees Calculated T [place] : 62 degrees Atrial fibrillation with rapid ventricular response Nonspecific T wave abnormality Abnormal ECG 2257 Atrial fibrillation with rapid ventricular response no stemi Confirmed by MD MILLER CHRISTOPHER ([id number]), newspaper managing editor Beatriz Ferguson ([id number]) on 07/24/2022 2:26:58 PM NAME : HUE AGUILAR PID : [id number] : 1990 Gender : Female Race : Unknown ORD : Procedure Date : Jul 23 2022 22:56:02 Edit Date : Jul 24 2022 14:27:01 Diagnosis: Atrial fibrillation with rapid ventricular response Nonspecific T wave abnormality Abnormal ECG 2257 Atrial fibrillation with rapid ventricular response no stemi Confirmed by MD MILLER CHRISTOPHER ([id number]), newspaper managing editor Beatriz Ferguson ([id number]) on 07/24/2022 2:26:58 PM Test Reason : Location : 302 : ED ED Overread By : MD MILLER CHRISTOPHER Edited By : Beatriz Ferguson Referred By : , Acquired by : , Normal [facility] HIGH SENSITIVITY TROPONIN T (INITIAL)on 07-24-2022 HIGH SENSITIVITY MELINDA 8 ng/L Normal <12 [facility] Comment on above: Order Comment: Speci men Type: BLOOD SPECIMENOrdering Facility: [facility] Address: [address] [place] [address] Result Comment: When assessing risk for acute [...] 30 day MACE. Performed By: #### L [id number] ####[facility] [id number] [place] [address] [place] HIGH SENSITIVITY TROPONIN T (SECOND)on 07-24-2022 HIGH SENSITIVITY MELINDA 8 ng/L Normal <12 [facility] Comment on above: Order Comment: Speci men Type: BLOOD SPECIMENOrdering Facility: [facility] Address: [address] [place] [address] Result Comment: When assessing risk for acute [...] 30 day MACE. Performed By: #### L [id number] ####[facility] [id number] [place] [address] [place] Lipase SerPl-cCncon 07-24-20 22 Lipase [Catalytic activity/Vol] 47 U/L Normal 16-61 [facility] Comment on above: Order Comment: Dada arenas Type: BLOOD SPECIMENOrdering Facility: [facility] Address: [address] [place] [address] Performed By: #### 3 040-3, 38461-4, 62203-3, 3016-3 ####[facility] [id number] [place] [address] [place] Magnesium SerPl-mCncon 07-24 Magnesium [Mass/Vol] 2.1 mg/dL Normal 1.7-2.3 [facility] Comment on above: Order Comment: Leticiai dagoberto Type: BLOOD SPECIMENOrdering Facility: [facility] Address: [address] [place] [address] Performed By: #### 3 040-3, 30025-7, 24651-8, 3016-3 ####[facility] [id number] [facility] [place] [address] [place] NT-proBNP [facility]-ncon 07-24 Natriuretic peptide.B prohormone N-Terminal [Mass/Vol] 345 pg/mL High <125 [facility] Comment on above: Order Comment: Speci men Type: BLOOD SPECIMENOrdering Facility: [facility] Address: [address] [place] [address] Performed By: #### 3 3762-6 ####[facility] [id number] [place] [address] [place] TSH SerPl-aCncon 07-24-2022 TSH Qn 1.850 m[IU]/L Normal 0.270-4.200 [facility] Comment on above: Order Comment: Speci men Type: BLOOD SPECIMENOrdering Facility: [facility] Address: [address] [place] [address] Result Comment: If t he patient is [...] Thyroid, 2017:27:3:315-389. Performed By: #### 3 040-3, 20150-3, 84225-4, 3016-3 ####[facility] [id number] [place] [address] [place] XR CHEST 1V [...] Payne rods. IMPRESSION: No acute radiographic abnormality. Rating Clerk: PSCB Transcribe Date/Time: Jul 23 2022 11:19P Dictated by : HONG MEDRANO MD This examination was interpreted and the report reviewed and electronically signed by: HONG MEDRANO MD on Jul 23 2022 11:19PM EST [id number] N [facility] Vital Signs Date Time Vital Sign Value Performing Clinician Facility 09-12-2023 13:20-0500 Body height 171.45 cm Volt Other [employer] Other 09-12-2023 13:20-0500 Body mass index (BMI) [Ratio] 22.99 kg/m2 Vol[facility] Other [employer] Other 09-12-2023 13:20-0500 Body weight 67.59 kg Volt Other [facility] [employer] Other 05-27-2023 13:40-0400 Body height 170.2 cm Jessee Hamilton MD Work Phone: [facility] 05-27-2023 13:40-0400 Body weight 65.77 kg Jessee Hamilton MD Work Phone: [facility] 05-27-2023 13:40-0400 Diastolic blood pressure 76 mm[Hg] Jessee Hamilton MD Work Phone: [facility] 05-27-2023 13:40-0400 Heart rate 97 /min Jessee Hamilton MD Work Phone: [facility] 05-27-2023 13:40-0400 Systolic blood pressure 124 mm[Hg] Jessee Hamilton MD Work Phone: [facility] 05-26-2023 13:29-0400 Diastolic blood pressure 87 mm[Hg] Ashwini Finefrock PA-C Work Phone: [facility] 05-26-2023 13:29-0400 Systolic blood pressure 122 mm[Hg] Ashwini Finefrock PA-C Work Phone: [facility] 05-26-2023 13:11-0400 Body height 170.2 cm Ashwini Finefrock PA-C Work Phone: [facility] 05-26-2023 13:11-0400 Body temperature 98.29 [degF] Ashwini Finefrock PA-C Work Phone: [facility] 05-26-2023 13:11-0400 Body weight 64.41 kg Ashwini Finefrock PA-C Work Phone: [facility] 05-26-2023 13:11-0400 Heart rate 71 /min Ashwini Finefrock PA-C Work Phone: [facility] 05-26-2023 13:11-0400 SaO2% (BldA) [Mass fraction] 98 % Ashwini Finefrock PA-C Work Phone: [facility] 02-22-2023 14:21-0400 Body height 170.2 cm Ashwini Finefrock PA-C Work Phone: [facility] 02-22-2023 14:21-0400 Body weight 56.25 kg Ashwini Finefrock PA-C Work Phone: [facility] 02-22-2023 14:21-0400 Diastolic blood pressure 79 mm[Hg] Ashwini Finefrock PA-C Work Phone: [facility] 02-22-2023 14:21-0400 Heart rate 90 /min Ashwini Finefrock PA-C Work Phone: [facility] 02-22-2023 14:21-0400 SaO2% (BldA) [Mass fraction] 98 % Ashwini Finefrock PA-C Work Phone: [facility] 02-22-2023 14:21-0400 Systolic blood pressure 110 mm[Hg] Ashwini Finefrock PA-C Work Phone: [facility] 02-08-2023 15:30-0400 Body height 170.2 cm Chitra Mizanin PA-C Work Phone: [facility] 02-08-2023 15:30-0400 Body weight 55.79 kg Chitra Mizanin PA-C Work Phone: [facility] 02-08-2023 15:30-0400 Diastolic blood pressure 84 mm[Hg] Chitra Mizanin PA-C Work Phone: [facility] 02-08-2023 15:30-0400 Heart rate 71 /min Chitra Mizanin PA-C Work Phone: [facility] 02-08-2023 15:30-0400 SaO2% (BldA) [Mass fraction] 98 % Chitra Mizanin PA-C Work Phone: [facility] 02-08-2023 15:30-0400 Systolic blood pressure 128 mm[Hg] Chitra Mizanin PA-C Work Phone: [facility] 02-04-2023 11:16-0400 Diastolic blood pressure 82 mm[Hg] Chitra Mizanin PA-C Work Phone: [facility] 02-04-2023 11:16-0400 Systolic blood pressure 124 mm[Hg] Chitra Mizanin PA-C Work Phone: [facility] 02-04-2023 10:56-0400 Body height 170.2 cm Chitra Mizanin PA-C Work Phone: [facility] 02-04-2023 10:56-0400 Body weight 55.34 kg Chitra Mizanin PA-C Work Phone: [facility] 02-04-2023 10:56-0400 Heart rate 78 /min Chitra Mizanin PA-C Work Phone: [facility] 02-04-2023 10:56-0400 SaO2% (BldA) [Mass fraction] 99 % Chitra Mizanin PA-C Work Phone: [facility] 02-03-2023 14:55-0400 Body height 170.2 cm Aria Glasenapp PA-C Work Phone: [facility] 02-03-2023 14:55-0400 Body weight 55.43 kg Aria Glasenapp PA-C Work Phone: [facility] 02-03-2023 14:55-0400 Diastolic blood pressure 89 mm[Hg] Aria Glasenapp PA-C Work Phone: [facility] 02-03-2023 14:55-0400 Heart rate 80 /min Aria Glasenapp PA-C Work Phone: [facility] 02-03-2023 14:55-0400 Systolic blood pressure 152 mm[Hg] Aria Glasenapp PA-C Work Phone: [facility] 12-22-2022 08:20-0400 Body height 171.5 cm Marco Mendis DO Work Phone: [facility] 12-22-2022 08:20-0400 Body weight 50.8 kg Marco Mendis DO Work Phone: [facility] 12-22-2022 08:20-0400 Diastolic blood pressure 87 mm[Hg] Marco Mendis DO Work Phone: [facility] 12-22-2022 08:20-0400 Heart rate 67 /min Marco Mendis DO Work Phone: [facility] 12-22-2022 08:20-0400 Respiratory rate 16 /min Marco Mendis DO Work Phone: [facility] 12-22-2022 08:20-0400 SaO2% (BldA) [Mass fraction] 100 % Marco Slade DO Work Phone: [facility] 12-22-2022 08:20-0400 Systolic blood pressure 129 mm[Hg] Marco Slade DO Work Phone: [facility] 09-27-2022 09:10-0500 Body height 170.2 cm Jessee Hamilton MD Work Phone: [facility] 09-27-2022 09:10-0500 Body weight 50.35 kg Jessee Hamilton MD Work Phone: [facility] 09-27-2022 09:10-0500 Diastolic blood pressure 78 mm[Hg] Jessee Hamilton MD Work Phone: [facility] 09-27-2022 09:10-0500 Heart rate 87 /min Jessee Hamilton MD Work Phone: [facility] 09-27-2022 09:10-0500 SaO2% (BldA) [Mass fraction] 99 % Jessee Hamilton MD Work Phone: [facility] 09-27-2022 09:10-0500 Systolic blood pressure 110 mm[Hg] Jessee Hamilton MD Work Phone: [facility] Encounters Encounter Date Encounter Type Care Provider Facility Start: 12-20-2023 End: 12-20-2023 ambulatory BOBO [facility] Start: 10-31-2023 End: 10-31-2023 ambulatory KIANA [facility] Start: 10-03-2023 End: 10-04-2023 ambulatory Chucky Hernandez MD Facility:[facility] Start: 09-26-2023 End: 09-27-2023 ambulatory Chucky Hernandez MD Facility:[facility] Start: 09-12-2023 End: 09-12-2023 ambulatory Lorie oTwnsend Facility:[facility] [place] Start: 09-12-2023 End: 09-12-2023 Patient encounter procedure PHYSICIAN NO [facility] Work Phone: Start: 09-12-2023 End: 09-12-2023 ambulatory PHYSICIAN NO [facility] Work Phone: Start: 09-12-2023 Office outpatient ne w 45 minutes Lorie Townsend [facility] [place] Start: 07-14-2023 End: 07-15-2023 ambulatory TERRIE BROWN [facility] Start: 07-14-2023 End: 07-14-2023 Office outpatient visit 25 minutes Terrie Brown MD Work Phone: [facility] Comment on above: Neuropathy (Primary Dx); Lumbar radiculopathy Start: 06-21-2023 ambulatory [facility] Start: 06-15-2023 Refill Ashwini L F inefrock PA-C Work Phone: Internal [facility] Comment on above: Refill Request Start: 06-05-2023 Refill Ashwini L F inefrock PA-C Work Phone: [facility] Comment on above: Refill Request Start: 05-30-2023 Refill Ashwini L F inefrock PA-C Work Phone: [facility] Comment on above: Refill Request Start: 05-27-2023 End: 05-27-2023 ambulatory ASHWINI L FINEFROCK Facility:[facility] Start: 05-27-2023 End: 05-27-2023 Patient encounter procedure Jessee Hamilton MD Work Phone: Cardiology Comment on above: Paroxysmal atrial fi brillation (HCC) (Primary Dx); Palpitations Start: 05-26-2023 End: 05-26-2023 ambulatory ASHWINI L FINEFROCK Facility:[facility] Start: 05-26-2023 End: 05-26-2023 Patient encounter procedure Ashwini L Finefrock PA-C Work Phone: [facility] Comment on above: Moderate episode of recurrent major depressive disorder (HCC) (Primary Dx); Attention deficit hyperactivity disorder (ADHD), unspecified ADHD type; Alcohol abuse; Juvenile idiopathic scoliosis of thoracolumbar region; Paroxysmal atrial fibrillation (HCC); Neuropathy; Encounter for immunization Start: 05-20-2023 Get Medical Advice Uri Hoyosfrock PA-C Work Phone: [facility] Comment on above: Adderall refill Start: 05-19-2023 Refill Ashwini Nguyễn inefrock PA-C Work Phone: [facility] [place] Comment on above: Refill Request Start: 05-18-2023 Refill Ashwini Nguyễn inefrock PA-C Work Phone: [facility] Comment on above: Refill Request Start: 05-15-2023 Refill Ashwini Nguyễn inefrock PA-C Work Phone: [facility] Comment on above: Refill Request Start: 04-27-2023 Refill Chitra Lim Theodora capellanin PA-C Work Phone: [facility] Comment on above: Refill Request Start: 04-26-2023 Refill Ashwini Nguyễn inefrock PA-C Work Phone: [facility] Comment on above: Refill Request Start: 04-21-2023 Get Medical Advice Uri Hoyosfrock PA-C Work Phone: [facility] Comment on above: Adderall refill Start: 04-12-2023 ambulatory Ashwini Carina Nguyễn inefrock PA-C Work Phone: [facility] Start: 04-12-2023 Letter encounter Ashwini Hoyosfrock PA-C Work Phone: [facility] Comment on above: Letter for Disabilit y Start: 03-31-2023 Refill Ashwini Nguyễn inefrock PA-C Work Phone: Internal Medicine [facility] Start: 03-22-2023 ambulatory Ashwini Carina Nguyễn karissa PA-C Work Phone: Internal Medicine [facility] Comment on above: Resend prescription Refill Request Med refill Start: 2023 Chart Update Ashwini Lim Gopi karissa Work Phone: WJ-Bcsrujdyinze-Ppbudg an Work Phone: Start: 03-14-2023 End: 03-14-2023 Get Medical Advice Ashwini Matute PA-C Work Phone: Internal Medicine [facility] Comment on above: Medication refills Low back pain, unspe cified; Radiculopathy, lumbar region; Arthrodesis status Start: 03-14-2023 Chart Update Ashwini hancock Work Phone: TV-Jdlgnxwctjau-Y [address] Work Phone: Start: 03-09-2023 AUDIT Ashwini Lim Gopi karissa Work Phone: IH-Bntwzccehydm-Rmmuwa an Work Phone: Start: 03-03-2023 End: 03-03-2023 ambulatory ARIA SNIDERPP Facility:[facility] Start: 02-25-2023 ambulatory Aria Lionenapp PA-C Work Phone: [place] Start: 02-25-2023 Patient encounter procedure Aria Glasenapp PA-C Work Phone: OB/Gynecology Comment on above: Upcoming appointment Start: 02-24-2023 Chart Update Ashwini Lim Gopi karissa Work Phone: IX-Lflomyrfvxhm-Zdjnjr ke Work Phone: Start: 02-22-2023 End: 02-22-2023 ambulatory ASHWINI MATUTE Facility:[facility] Start: 02-22-2023 End: 02-22-2023 Patient encounter procedure Ashwini Matute PA-C Work Phone: [facility] Comment on above: Mild episode of recu rrent major depressive disorder (HCC) (Primary Dx); Attention deficit hyperactivity disorder (ADHD), unspecified ADHD type; Vitamin D deficiency Start: 02-15-2023 End: 02-15-2023 ambulatory ASHWINI MATUTE Facility:[facility] Start: 02-10-2023 NPV, Provider: Terrie Brown, Status: Pen, Time: 1:30 PM Terrie Brown MD Work Phone: KZ-Xjxcweknxfkl-Tdvjvo 107 DO Work Phone: Start: 02-10-2023 Office outpatient ne w 30 minutes Ashwini Matute Work Phone: TI-Featgdhtrjmd-Umgvov ke Work Phone: Start: 02-10-2023 Refill Ashwini sylvesterfrjenniffer PA-C Work Phone: [facility] Start: 02-08-2023 AUDIT Terrie aiken MD Work Phone: KU-Sddayzibinlh-Zsehgy 107 DO Work Phone: Start: 02-08-2023 End: 02-08-2023 Office outpatient visit 25 minutes Chitra Carina Mizanin PA-C Work Phone: [facility] Comment on above: Upper back pain on r ight side (Primary Dx) Start: 02-08-2023 End: 02-08-2023 ambulatory Bindu Tirado RT(R) Radiology Comment on above: Radio Gen RMP Start: 02-08-2023 Patient encounter procedure Bindu Tirado RT(R) [facility] Start: 02-07-2023 ambulatory Chitracarlos capellanin PA-C Work Phone: [facility] Start: 02-07-2023 Patient encounter procedure Chitra L Mizanin PA-C Work Phone: [facility] Comment on above: Appointment request Start: 02-04-2023 End: 02-04-2023 ambulatory ASHWINI MATUTE Facility:[facility] Start: 02-04-2023 End: 02-04-2023 Office outpatient visit 15 minutes Chitra Burnett PA-C Work Phone: Internal Medicine [facility] Comment on above: Neuropathy (Primary Dx) Start: 02-03-2023 End: 02-03-2023 Subsequent hospital visit by physician [facility] Work Phone: Cardiovascular Testing Comment on above: Palpitations [R00.2] Start: 02-03-2023 End: 02-03-2023 ambulatory ARIA IZQUIERDO Facility:[facility] Start: 02-03-2023 End: 02-03-2023 Patient encounter procedure Aria Izquierdo PA-C Work Phone: OB/Gynecology Comment on above: Counseling for control regarding intrauterine device (IUD) Start: 01-11-2023 End: 01-11-2023 ambulatory ASHWINIJOEL MATUTE Facility:[facility] Start: 01-11-2023 Telephone encounter Yue BRANNON Work Phone: Adult Psychology Comment on above: Behavioral Health/So cial Work Start: 12-31-2022 Telephone encounter Marco Slade DO Work Phone: Spine Medicine Comment on above: Scans Start: 12-22-2022 End: 12-22-2022 Subsequent hospital visit by physician [facility] Work Phone: [facility] Radiology General Comment on above: Juvenile idiopathic scoliosis of thoracolumbar region [M41.115] Start: 12-22-2022 End: 12-22-2022 ambulatory MARCO SLADE Facility:[facility] Start: 12-22-2022 End: 12-22-2022 Patient encounter procedure Marco Slade DO Work Phone: Spine Medicine Comment on above: 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 (Primary Dx); Juvenile idiopathic scoliosis of thoracolumbar region; Arthrodesis status; Paresthesia of right foot Start: 11-25-2022 ambulatory Jessee faith MD Work Phone: Cardiology Comment on above: monitoring and evaluation advisor Start: 11-05-2022 ambulatory Jessee faith MD Work Phone: Cardiology Comment on above: Heart Monitor Start: 10-18-2022 ambulatory Jessee faith MD Work Phone: Cardiology Comment on above: Monitor Start: 10-18-2022 E-mail encounter millie m caregiver Jessee Hamilton MD Work Phone: [facility] Start: 09-27-2022 End: 09-27-2022 Office outpatient new 20 minutes Jessee Hamilton MD Work Phone: Cardiology Comment on above: Palpitations (Primar y Dx); Paroxysmal atrial fibrillation (HCC) Start: 09-15-2022 Telephone encounter Ubaldo sims MD Work Phone: Cardiology Comment on above: Received Outside Med ical Records Start: 07-24-2022 End: 07-24-2022 Emergency department patient visit [facility] Facility:[facility] Procedures Date Procedure Procedure Detail Performing [...] COVID-19 VACCINE (#1) COVID-19 VACCI NE (#1) [facility] Comment on above: Postponed from 09/15 (Declined at this time) Start: 05-26-2023 End: 07-26-2023 Comprehensive metabolic 2000 panel - Serum or Plasma [facility] Work Phone: Comment on above: Expected: 05/26/2023 , Expires: 07/26/2023 Start: 05-26-2023 End: 07-26-2023 TOX SCREEN ROUT UR [facility] Work Phone: Comment on above: Expected: 05/26/2023 , Expires: 07/26/2023 Start: 05-06-2023 Influenza vaccination [facility] Start: 09-05-2022 DEPRESSION ASSESSMENT DEPRESSION ASS ESSMENT [facility] Start: 05-06-2022 Influenza vaccination INFLUENZA (#1) [facility] Start: 2021 HPV TESTING HPV TESTING [facility] Start: 2013 DTaP/Tdap/Td Vaccine s (1 - Tdap) DTaP/Tdap/Td Vaccines (1 - Tdap) [facility] Start: 2012 PAP TESTING PAP TESTING [facility] Start: 2012 Screening for malign ant neoplasm of cervix [facility] Start: 05-30-2011 HPV VACCINE (3 - 3-d ose series) HPV VACCINE (3 - 3-dose series) [facility] Start: 05-30-2011 HPV Vaccines (3 - 3- dose series) HPV Vaccines (3 - 3-dose series) [facility] Start: 2010 Urine microalbumin profile [facility] Start: 2009 Diabetes mellitus screening Diabetes Screening [facility] Start: 2009 HEPATITIS C SCREENING HEPATITIS C [facility] Start: 2009 Hepatitis C screening Hepatitis C [facility] Start: 2009 HIV SCREENING HIV SCREENING [facility] Start: 1992 MMR Vaccines (1 of 1 - Standard series) MMR Vaccines (1 of 1 - Standard series) [facility] Start: 1992 Varicella vaccination Varicell a Vaccines (1 of 2 - 2-dose childhood series) [facility] Start: 1991 COVID-19 VACCINE (#1) COVID-19 VACCI NE (#1) [facility] Start: 1991 HEPATITIS B (1 of 3 - 3-dose series) HEPATITIS B (1 of 3 - 3-dose series) [facility] Start: 1991 Hepatitis B Vaccine (1 of 3 - 3-dose series) Hepatitis B Vaccine (1 of 3 - 3-dose series) [facility] Start: 1991 Hepatitis B Vaccines (1 of 3 - 3-dose series) Hepatitis B Vaccines (1 of 3 - 3-dose series) [facility] Start: 1991 HIV screening HIV Screening [facility] Start: 1991 Lipid panel Lipid Panel [facility] Start: 1991 Yearly Adult Physical Yearly Adult P hysical [facility] Ct lumbar spine w/co ntrast material CT MYELOGRAM LUMBAR Radiology Routine 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 Ordered: 12/22/2022 [facility] Work Phone: Comment on above: Ordered: 12/22/2022 Ct thoracic spine w/contrast material CT MYELOGRAM THORACIC Radiology Routine 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 Ordered: 12/22/2022 [facility] Work Phone: Comment on above: Ordered: 12/22/2022 End: 09-27-2023 ECG COMPLETE ECG COMPLETE ECG Routine Palpitations 1 Occurrences starting 09/27/2022 until 09/27/2023 [facility] Work Phone: Comment on above: 1 Occurrences starti ng 09/27/2022 until 09/27/2023 ECG COMPLETE ECG COMPLETE ECG 09/27/2022 9:14 AM EST [facility] End: 09-27-2023 Echocardiography ECHO Cardiology Routine Palpitations 1 Occurrences starting 09/27/2022 until 09/27/2023 [facility] Work Phone: Comment on above: 1 Occurrences starti ng 09/27/2022 until 09/27/2023 Insertion intrauteri ne device iud INSERT INTRAUTERINE DEVICE Procedures Routine Counseling for control regarding intrauterine device (IUD) Ordered: 02/03/2023 [facility] Work Phone: Comment on above: Ordered: 02/03/2023 IR XR INJ MYELOGRAM IR XR INJ MY ELOGRAM Radiology Routine 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 Ordered: 12/22/2022 [facility] Work Phone: Comment on above: Ordered: 12/22/2022 OUTSIDE VENDOR CARDI AC OUTPATIENT TELEMETRY OUTSIDE VENDOR CARDIAC OUTPATIENT TELEMETRY Holter Routine Palpitations Ordered: 09/27/2022 [facility] Work Phone: Comment on above: Ordered: 09/27/2022 OUTSIDE VENDOR CARDI AC OUTPATIENT TELEMETRY OUTSIDE VENDOR CARDIAC OUTPATIENT TELEMETRY Holter Routine Paroxysmal atrial fibrillation (HCC) Palpitations Ordered: 11/05/2022 [facility] Work Phone: Comment on above: Ordered: 11/05/2022 [facility] Immunizations Immunization Date Immunization Notes Care Provider Niko [facility] 05-26-2023 influenza, injectabl e, quadrivalent, contains preservative Ashwini Matute PA-C Work Phone: [facility] 06-03-2022 influenza, injectabl e, quadrivalent, preservative free Terrie Brown MD Work Phone: [facility] Work Phone: 06-11-2014 influenza virus vaccine, whole virus Ubaldo Moreno MD Work Phone: [facility] 06-11-2014 influenza, seasonal, injectable Terrie Brown MD Work Phone: [facility] Work Phone: 06-11-2014 influenza virus vaccine, unspecified formulation Ashwini Matute PA-C Work Phone: [facility] 01-21-2011 human papilloma viru s vaccine, bivalent Ubaldo Moreno MD Work Phone: [facility] 01-21-2011 HPV, unspecified formulation Terrie Brown MD Work Phone: [facility] Work Phone: 11-27-2010 human papilloma viru s vaccine, bivalent Ubaldo Moreno MD Work Phone: [facility] Payers Date Payer Category Payer Self-pay 2023 Unknown [id number] 2023 Unknown 2023 Unknown [id number] 2023 Medicaid [id number] 2023 Medicaid [id number] 2022 Private Health Insurance [id number] 2022 Private Health Insurance [id number] 2021 Unknown [id number] 1991 Unknown [id number] 2.16. [id number] 1991 Unknown [id number] 2.16. [id number] 1991 Unknown [id number] 2.16. [id number] 1991 Unknown [id number] 2.16.8 [id number] 1991 Unknown [id number] 2.16. [id number] 1991 Unknown [id number] 2.16. [id number] Self-pay [id number] Unknown [id number] 2.16.8 [id number] Social History Date Type Detail Facility Start: 12-02-2014 Tobacco smoking status FLIS Tobacco smoking consumption unknown [facility] Start: 08-05-2022 End: 09-27-2022 Alcohol intake Current non-drinker of alcohol (finding) [facility] Start: 1990 Sex Assigned At Not on file [facility] Start: 09-27-2022 Tobacco smoking status FLIS Never smoked tobacco [facility] Start: 09-27-2022 Tobacco use and exposure Smokeless tobacco non-user [facility] Start: 09-27-2022 Tobacco Comment vapes [facility] Start: 01-05-2023 History SDOH Alcohol Frequency 5 [facility] Start: 01-05-2023 History SDOH Alcohol Std Drinks 1 [facility] Start: 01-05-2023 History SDOH Social Connections Phone 2 [facility] Start: 01-05-2023 History SDOH Social Connections Protestant 98 [facility] Start: 01-05-2023 History SDOH Stress 4 [facility] Start: 09-21-2022 End: 01-05-2023 Never smoker Never smoker [facility] Start: 09-21-2022 End: 01-05-2023 Social connection and isolation panel [facility] How often do you att end roman catholic or amish services? Patient refused [facility] Do you belong to any clubs or organizations such as roman catholic groups, unions, fraternal or athletic groups, or school groups? No [facility] Are you now , , , , never or living with a partner? [facility] How often to you hav e a drink containing alcohol? 4 or more times a week [facility] How many standard dr inks containing alcohol do you have on a typical day? 1 or 2 [facility] How often do you hav e 6 or more drinks on 1 occasion? Never [facility] Do you feel stress - tense, restless, nervous, or anxious, or unable to sleep at night because your mind is troubled all the time - these days [OSQ] Rather much [facility] (I/We) worried wheth er (my/our) food would run out before (I/we) got money to buy more. Never true [facility] Start: 1990 Sex Assigned At Female [facility] Start: 05-22-2023 Gender identity Identifies as female gender (finding) [facility] Start: 05-22-2023 Sexual orientation Choose not to disclose [facility] Start: 07-04-2023 End: 07-14-2023 Exposure to SARS-CoV-2 (event) Not sure [facility] Medical Equipment Procedure Code Equipment Code Equipment Origin al Text Equipment Identifier Dates use to inject B- 12 MONTHLY [id number] Start: 02-04-2023 use to DRAW B-12 INJECTION as directed [id number] Start: 02-04-2023 Clinical Notes 07-24-2022 to 12-20-2023 Note Date & Type Note Facility 12-20-2023 Note Review of Systems All other systems reviewed and are negative. [place] [facility] Consult Note Reason for visit: new pt, PAF? 12/20/23 Patient here for follow up echo and event monitor. She denies chest pain, SOB, palpitations, and lightheadedness/syncope. She thinks the possible afib episode she had in the past was due to stress. event monitor from 11/08/2022 to 12/07/2022 Did not reveal any episodes of A-fib. occasional PACs seen. Episode of Long RP tachycardia on 11/05/[address] with sexual activity. ECHO: 11/24/23 Prior HPI: Hue Titus is a 33 y.o. 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 She has a longstanding history of palpitations 07/2022 she was doing with multiple deaths in the family and multiple stressors, she was recovering from a narcotic to time and did relapse. she went to an ER 07/2022 and had EKGs that are concerning for A-fib, that he consider cardioverting but I responded to medication no cardioversion was done she had a subsequent event monitor 11/2022 which shows sinus rhythm with sinus tach, sinus arrhythmias I reviewed the EKGs from 09/2021 that were concerning for A-fib and although some please do post concern for A-fib, it is very questionable. she has not really felt any palpitations since March since starting metoprolol tartrate 25 mg twice daily discussed with her doing another 30-day event monitor to consider loop monitor for long-term monitoring of A-fib/SVT FH: Dad: scoliosis, mom: pain, fibromylagia, depression, afib?/svt , grandma: stroke, DM grandfather: DM PMH: Past Medical History: Diagnosis Date Abnormal ECG Arrhythmia PSH: Past Surgical History: Procedure Laterality Date BACK SURGERY SH: Social Determinants of Health Tobacco Use: High Risk (10/31/2023) Patient History Smoking Tobacco Use: Former Smokeless Tobacco Use: Current Passive Exposure: Not on file Alcohol Use: Not on file Financial Resource Strain: Not on file Food Insecurity: Not on file Transportation Needs: Not on file Physical Activity: Not on file Stress: Not on file Social Connections: Not on file Intimate Partner Violence: Unknown (10/28/2023) [place] Safety & Environment Fear of Current or Ex-Partner: Not on file Emotionally Abused: Not on file Physically Abused: Not on file Sexually Abused: Not on file Physically or Sexually Abused: Not on file Depression: Not on file Housing Stability: Not on file Utilities: Not on file Allergies: No Known Allergies Weight: 64.9kg Visit Vitals BP 117/79 (BP Location: Right arm, Patient Position: Sitting) Pulse 69 Ht 1.715 m (5' 7.5 ) Wt 64.9 kg (143 lb) SpO2 99% BMI 22.07 kg/m??? Smoking Status Former BSA 1.76 m??? Meds: Current Outpatient Medications on File Prior to Visit Medication Sig Dispense Refill amphetamine-dextroamphetamine XR (Adderall XR) 10 mg 24 hr capsule 1 (one) time each day at the same time. amphetamine-dextroamphetamine XR (Adderall XR) 30 mg 24 hr capsule take 1 capsule by mouth once daily Oral for 30 Days aspirin 325 mg capsule Take 1 capsule by mouth in the morning. baclofen (Lioresal) 20 mg tablet TAKE 1 TABLET BY MOUTH THREE TIMES DAILY NEEDED sparingly ergocalciferol (Vitamin D-2) 1.25 MG (05247 Units) capsule Take 50,000 Units by mouth once a week. escitalopram (Lexapro) 20 mg tablet Take 20 mg by mouth in the morning. gabapentin (Neurontin) 600 mg tablet Take 1,200 mg by mouth 3 times a day. metoprolol tartrate (Lopressor) 25 mg tablet Take 25 mg by mouth in the morning and at bedtime. pregabalin (Lyrica) 75 mg capsule Take 75 mg by mouth in the morning, afternoon, and at bedtime. tiZANidine (Zanaflex) 4 mg tablet Take 4 mg by mouth if needed in the morning and at bedtime. buPROPion XL (Wellbutrin XL) 150 mg 24 hr tablet Take 150 mg by mouth in the morning. cyanocobalamin (Vitamin B-12) 1,000 mcg/mL injection inject 1 MILLILITER ( 1000 MCG ) intramuscularly Every Month Injection for 28 Days No current facility-administered medications on file prior to visit. ROS: Review of Systems All other systems reviewed and are negative. Physical Exam: Constitutional General Appearance: well-nourished, well-developed, appears stated age Level of Distress: comfortable Psychiatric Mental Status: alert, normal affect Orientation: oriented to time, place, and person Insight: good judgement Eyes Lids and Conjunctivae: non-injected, no xanthelasma ENMT Ears: no lesions on external ear Nose: no lesions on external nose Oropharynx: no cyanosis, no pallor Neck Neck: supple, trachea midline Carotid Arteries: bilateral normal upstroke, no bruits Jugular Veins: normal jugular venous pressure Thyroid: not enlarged Lungs Respiratory Effor (more content not included)... [facility] 10-31-2023 Note New patient here to establish care. Ref from Kel Thurman CNP for PAF. She did not repeat event monitor or have echo that was ordered in May 2023 by [facility]. Says she has chest pressure when she's in afib. Feels palpitations every 6 weeks or so. Former smoker, but now uses tobacco pouches. Review of Systems Cardiovascular: Positive for palpitations. All other systems reviewed and are negative. [facility] 10-31-2023 Note [facility] Consult Note Reason for visit: new pt, PAF? HPI: Hue Titus is a 33 y.o. 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 She has a longstanding history of palpitations 07/2022 she was doing with multiple deaths in the family and multiple stressors, she was recovering from a narcotic to time and did relapse. she went to an ER 07/2022 and had EKGs that are concerning for A-fib, that he consider cardioverting but I responded to medication no cardioversion was done she had a subsequent event monitor 11/2022 which shows sinus rhythm with sinus tach, sinus arrhythmias I reviewed the EKGs from 09/2021 that were concerning for A-fib and although some please do post concern for A-fib, it is very questionable she has not really felt any palpitations since March since starting metoprolol tartrate 25 mg twice daily discussed with her doing another 30-day event monitor to consider loop monitor for long-term monitoring of A-fib/SVT FH: Dad: scoliosis, mom: pain, fibromylagia, depression, afib?/svt , grandma: stroke, DM grandfather: DM PMH: No past medical history on file. PSH: No past surgical history on file. SH: Social Determinants of Health Tobacco Use: Not on file Alcohol Use: Not on file Financial Resource Strain: Not on file Food Insecurity: Not on file Transportation Needs: Not on file Physical Activity: Not on file Stress: Not on file Social Connections: Not on file Intimate Partner Violence: Unknown (10/28/2023) [place] Safety & Environment Fear of Current or Ex-Partner: Not on file Emotionally Abused: Not on file Physically Abused: Not on file Sexually Abused: Not on file Physically or Sexually Abused: Not on file Depression: Not on file Housing Stability: Not on file Utilities: Not on file Allergies: Not on File Weight: No weight available There were no vitals taken for this visit. Meds: No current outpatient medications on file prior to visit. No current facility-administered medications on file prior to visit. ROS: Cardio Basic Cardiovascular Symptoms: no lightheadedness, no leg edema, no syncope, no orthopnea, no PND, no claudication, Constitutional Constitutional: no fever, no night sweats, no significant weight gain, no significant weight loss, no exercise intolerance Eyes Eyes: no dry eyes, no irritation, no vision change ENMT Ears: no difficulty hearing, no ear pain Nose: no frequent nosebleeds, Mouth/Throat: no sore throat, no bleeding gums, no snoring, no dry mouth, no mouth ulcers, no oral abnormalities, no teeth problems Respiratory Respiratory: no cough, no wheezing, no coughing up blood, no sleep apnea Musculoskeletal Musculoskeletal: no muscle aches, no muscle weakness, joint pain+, no back pain, no swelling in the extremities Integumentary Skin no rash, no ulcer, no varicosities, no discoloration, no pruritus Neurologic Neurologic: no loss of consciousness, no weakness, no numbness, no seizures, no dizziness, no headaches Psychiatric Psych: no depression, feeling safe in relationship, no alcohol abuse, Hematologic/Lymphatic Hematologic/Lymphatic no swollen glands, no bruising Physical Exam: Constitutional General Appearance: well-nourished, well-developed, appears stated age Level of Distress: comfortable Psychiatric Mental Status: alert, normal affect Orientation: oriented to time, place, and person Insight: good judgement Eyes Lids and Conjunctivae: non-injected, no xanthelasma ENMT Ears: no lesions on external ear Nose: no lesions on external nose Oropharynx: no cyanosis, no pallor Neck Neck: supple, trachea midline Carotid Arteries: bilateral normal upstroke, no bruits Jugular Veins: normal jugular venous pressure Thyroid: not enlarged Lungs Respiratory Effort: unlabored Chest Exam: normal curvature, no thoracic deformity Auscultation: clear, no wheezing, no rales, no rhonchi Cardiovascular Rate And Rhythm: regular Heart Sounds: normal S1, normal s2, no gallop Systolic Murmur: not heard Diastolic Murmur: not heard Extremities: no cyanosis, no edema, no peripheral signs of emboli Peripheral Pulses Radial Pulse: normal Abdomen Inspection and Palpation: soft, non distended, no bruit, non tender Musculoskeletal Inspection: no joint swelling Neurologic Gait: normal gait Skin Inspection and Palpation: warm and dry Nails: no clubbing Labs: @LABRESULTS@ No results found for: CHOLESTEROL TOTAL , HDL , LDL CALC , LDL DIRECT , TRIGLYCERIDES , TSH , T3 TOTAL , T4 TOTAL , THYROID PEROXIDASE AB , BNP EKG: No results found for this or any previous visit (from the past 4463 hour(s)). Echo: Stress test: Coronary angiogram: @CATH@ Diagnostic Imaging: (more content not included)... [facility] 09-12-2023 Evaluation note Encounter Date Diagnosis Assessment Notes Sep, Lumbar radiculopathy, right (ICD-10 - M54.16) Ms Titus is a new patient to me and presents for low back pain and pain, numbness in her right foot that radiates up. Has significant surgical history of lumbar fusion with scoliosis. States worsing of pain since 2017, was seen by pain managment in which they were unable to place pain stimulator due to scar tissue. States had EMG in [place] by Dr Galvan. I reviewed the CT myelogram from 03/14/2023 [id number] with patient and which shows suggestive pseudomeningocele [...] release of information from medical records and [place] from Dr. Galvan. Will refer for a new EMG as previous one in [place] was greater than 2 years old. Pharmacological management will continue with current medications as prescribed. Will refer patient to aqua therapy at the [facility]. Follow-up in 3 months. Medical decision [...] Sep, Vitamin B deficiency (ICD-10 - E53.9) [employer] Other 11-09-2023 History of Present illness Narrative* [...] then around 2018- 2019 while living in [place] she was seeing pain management who tried caudal injections which did not help. She is also tried multiple medications such as Cymbalta and Lyrica without any relief. She was started on gabapentin which initially did provide relief of her leg painbut now she still has a lot of foot pain. She describes as a burning sensation. She then since moved back to [place] and has been seeing physicians at [facility]. Most of her care is done at [facility]. She was seeing pain management with [...] started taking yet. 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 She does not smoke occasionally drinks alcohol [...] L2. Patient had a EMG back in [place] in 2020 which she brought in today which suggested a right L5 radiculopathy A/P: Hue Titus is a 33 y.o. year old female patient with history of scoliosis status post thoracolumbar fusion when she was a teenager who reports persistent right radicular leg pain and numbness. She had EMG done in [place] in 2020 which suggested a right L5 [...] to prepare this document. Terrie Brown MD Manager Learning Department of Orthopaedic Surgery [email or web address] documented in this [facility]Tri[facility] Work Phone: [phone]) 523-645210-12-2023 Miscellaneous Notes* Telephone Encounter - Ashwini Matute [...] pended Josh Han MA documented in [facility] encounterGre[facility]10-[facility]23 Miscellaneous Notes* Telephone Encounter - Altagracia Leroy MA - 06/06/2023 7:19 AM EDT Last ov: 05/26/23 Next ov: 07/07/23 Pharmacy electronically requests the following refill(s) Requested Prescriptions Pending Prescriptions Disp Refills metoprolol tartrate, short acting, (LOPRESSOR) 25 mg tablet [Pharmacy Med Name: METOPROLOL [id number] MG TAB] 60 tablet 2 Sig: take 1 tablet by mouth twice a day Altagracia Leroy MA documented in this encounterGreene [facility] Hospital09-25-2023 Miscellaneous Notes* Telephone Encounter - [...] advise. Lorrie Vargas MA documented in this encounterGreene Memorial Hospital09-25-2023 Miscellaneous Notes* Telephone Encounter - [...] pharmacy. Teagan Green MA documented in this encounterGreene Memorial Hospital09-22-2023 NoteHNO ID: [id number] Author: Jessee Hamilton MD Service: ? Author Type: Physician Type: Progress Notes Filed: 05/28/2023 8:48 AM Note Text: PRIMARY CARE PHYSICIAN: Ashwini Matute [address] [place] [address] REFERRING PHYSICIAN: No referring provider defined for this encounter. CHIEF COMPLAINT: Abnormal Holter HISTORY OF PRESENT ILLNESS: From my office notes on September 27, 2022 Probably paroxysmal atrial fibrillation, with spontaneous conversion into normal sinus rhythm. [id number] based on the information we have [...] disorder) Ovarian cyst PAF (paroxysmal atrial fibrillation) ([facility]) 07/2022 follows with cardiology Scoliosis SVT, lower [...] rhythm with intermittent s (more content not included)...[facility]09-22-2023 Instructions* Patient Instructions* Jessee Hamilton MD - 05/27/2023 1:54 PM EDT Images from the original note were not included. documented in this encounterGreene Memorial Hospital09-22-2023 History of Present illness Narrative* Jessee Hamilton MD - 05/27/2023 1:30 PM EDT PRIMARY CARE PHYSICIAN: Ashwini Matute [address] [place] [address] REFERRING PHYSICIAN: No referring provider defined for this encounter. CHIEF COMPLAINT: Abnormal Holter HISTORY OF PRESENT ILLNESS: From my office notes on September 27, 2022 Probably paroxysmal atrial fibrillation, with spontaneous conversion into normal sinus rhythm. [id number] based on the information we have [...] disorder) Ovarian cyst PAF (paroxysmal atrial fibrillation) ([facility]) 07/2022 follows with cardiology Scoliosis SVT, lower extremity ([facility]) 2018 ASA only no anticoagulants PAST SURGICAL [...] significant arrhythmia. The patient will get a [employer] mobile and send me the tracings if necessary. I appreciate the opportunity of partaking in the care of Hue Titus and look forward to following her along with you in the future. CONTACT INFORMATION: Jessee Hamilton M.D. Staff Repairer [employer] [facility] [address] [facility] [address] documented in this encounterGreene Memorial Hospital09-21-2023 NoteHNO ID: [id number] Author: Ashwini Matute PA-C Service: ? Author Type: Physician Pouncing Lathe Operator Type: Progress Notes Filed: 05/26/2023 3:00 PM Note Text: This note was created using NoteWriter. 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 05/26/2023 by LEA Velasco-Josh - DEXTROAMPHETAMINE-AMPHETAMINE 10 MG TABLET - DEXTROAMPHETAMINE-AMPHETAMINE [...] FLUZONE) Ashwini Matute PA-C documented in this encounterGreene Memorial Hospital09-21-2023 Instructions* Patient Instructions* Lorrie Vargas MA - 05/26/2023 1:23 PM EDT [facility] FACTS Please visit our lab at least 3-5 days before your scheduled appointment to have your lab work drawn, if lab work is ordered. This will allow us the ability to review your lab work results with you during your scheduled visit. [facility] HOURS: Lab is open Tuesday - Tuesday from 6:30am to 5pm and open 8am -12pm on Saturdays. [facility] HOURS: Tuesday- 7:30am to 5:30pm. Fridays [...] medicine, or pediatrics at any of our [facility] locations and main campus. documented in this encounterGreene Memorial Hospital09-18-2023 Miscellaneous Notes* Telephone Encounter - [...] by Ashwini Matute PA-C documented in this encounterGreene Memorial Hospital09-14-2023 Miscellaneous Notes* Telephone Encounter - [...] 30 days. Authorizing Provider: ASHWINI MATUTE PA-Cr [facility] website checked and validated. All prescriptions have [...] pharmacy. Teagan Green MA documented in this encounterGreene Memorial Hospital09-13-2023 Miscellaneous Notes* Telephone Encounter - Ashwini Matute PA-C - 05/18/2023 12:38 PM EDT The following approved medication requests have been transmitted electronically. Requested Prescriptions Signed Prescriptions Disp Refills gabapentin (NEURONTIN) 600 mg tablet 180 tablet 0 Sig: Take 2 tablets by mouth three times daily for 30 days. Authorizing Provider: ASHWINI MATUTE PA-C [facility] website checked and validated. All prescriptions have [...] advise. Altagracia Leroy MA documented in this encounterGreene Memorial Hospital09-11-2023 Miscellaneous Notes* Telephone Encounter - [...] advise. Lorrie Vargas MA documented in this encounterGreene Memorial Hospital08-24-2023 Miscellaneous Notes* Telephone Encounter - [...] suspicious activity was identified. 04/28/2023 by Ashwini Mautte PA-C documented in this [facility]08-23-2023 Miscellaneous Notes* Telephone Encounter - Ashwini [...] advise. Ashia Thrasher LPN documented in this encounterGreene Memorial Hospital08-17-2023 Miscellaneous Notes* Telephone Encounter - Ashwini Matute PA-C - 04/21/2023 4:20 PM EDT The following approved medication requests have been transmitted electronically. Requested Prescriptions Signed Prescriptions Disp Refills amphetamine-dextroamphetamine XR (ADDERALL XR) 30 mg biphasic capsule 30 capsule 0 Sig: Take 1 capsule by mouth once daily for 30 days. Ashwini Matute PA-C [facility] website checked and validated. All prescriptions have been APPROPRIATELY filled. No suspiciousactivity was identified. 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 30 day supply Rx sent. Will defer additional refills to PCP. I know I had previously discussed with patient ensuring she determines who would maintain Rx while in [place]. Has been filled by provider in [place]. Chitra Lim. RICHIE Burnett * Telephone Encounter - Kristie Thibodeaux APRN.CNP [...] pharmacy. Teagan Green MA documented in this encounterGreene Memorial Hospital07-19-2023 Miscellaneous Notes* Telephone Encounter - [...] advise. Radha Armstrong MA documented in this encounterGreene Memorial Hospital07-18-2023 Miscellaneous Notes* Telephone Encounter - [...] advise. Altagracia Leroy MA documented in this encounterGreene Memorial Hospital07-18-2023 Miscellaneous Notes* Telephone Encounter - Lorrie Vargas MA - 03/22/2023 1:19 PM EDT Patient phones requesting refills as follows: Requested Prescriptions Pending Prescriptions Disp Refills ADDERALL XR 30 mg biphasic capsule 30 capsule 0 Sig: Take 1 capsule by mouth once daily for 30 days. Please review and advise. Lorrie Vargas MA documented in this encounterGreene Memorial Hospital07-11-2023 NoteClinical Event: Clinical Event Note: TopicLP 03/14/23 - Post-procedure phone call Details After the patient's myelogram, the patient inadvertently administered her prescribed REVOLVING INVENTORY CLERK acting agents, which she was supposed to [...] Note Last Updated: 18-Mar-2023 08:56 by Dina Dennis)[facility] 2023 Miscellaneous Notes* Telephone Encounter - Ashwini [...] pharmacy. Altagracia Leroy MA documented in this encounterGreene Memorial Hospital07-10-2023 NotePre-procedure Verification and Time Out: Pre-Procedure Verification and Time Out: [facility] - Pre-procedure Verificationcompleted TIME OUT - Final Verificationcompleted immediately prior to procedure start DEBRIEFcompleted General Information: Anesthesia Critical Care: Non-Anesthesia Date/Time of Procedure: 14-Mar-2023 Indication(s)/Pre Procedure Diagnoses: right lumbar radiculopathy. History of scoliosis s/p thoracolumbar fusion Post-Procedure Diagnosis: right lumbar radiculopathy. History of scoliosis s/p thoracolumbar fusion Procedure Name: LP + Myelogram Findings: scoliosis s/p thoracolumbar fusion Procedure performed by: Dr. Dennis Pouncing Lathe Operator(s): none Dr. Ramirez Estimated Blood Loss [...] Completion Last Updated: 15-Mar-2023 13:22 by Dina Dennis)[facility] 03-03-2023 NoteHNO ID: [id number] Author: Aria Izquierdo PA-C Service: ? Author Type: Physician Pouncing Lathe Operator Type: Procedures Filed: 03/03/2023 12:16 PM Note Text: IUD INSERTION PROCEDURE Date/Time: 03/03/2023 12:08 PM Performed by: Aria Izquierdo PA-C Authorized by: Aria Izquierdo PA-C Indication: contraception Diagnosis: (Z30.430) Encounter for IUD insertion (primary encounter diagnosis) Patient's last menstrual period was 02/13/2023 (approximate). Informed Consent Consent Obtained: Written [place] Protocol A moment to CARE was completed. [...] possible retained foreign bodies accounted for. [facility] Miscellaneous Notes* Telephone Encounter - Mary Crowe PA-C - 02/25/2023 9:06 AM EDT The following approved medication requests have been transmitted electronically. Requested Prescriptions Signed Prescriptions Disp Refills miSOPROStol (CYTOTEC) 200 mcg tablet 2 tablet 0 Si tablet as directed for 2 doses. Take by mouth 2 days prior to appt, and the second pill 8-10hours prior to CONDENSER SETTER appt for cervical dilation. Mary Crowe PA-C [...] and the second pill 8-10hours prior to CONDENSER SETTER appt for cervical dilation. documented in this encounterGreene [facility] Hospital06-20-2023 NoteHNO ID: [id number] Author: Ashwini Matute PA-C Service: ? Author Type: Physician Pouncing Lathe Operator Type: Progress Notes Filed: 02/22/2023 3:32 PM Note Text: This note was created using [employer]. Subjective Hue Titus is a 32 year [...] pain. She has started seeing a new crime specialist at . Past Medical History: PAST MEDICAL HISTORY Diagnosis Date ADHD (attention deficit hyperactivity disorder) Ovarian cyst PAF (paroxysmal atrial fibrillation) ([facility]) 07/2022 follows with cardiology Scoliosis SVT, lower extremity ([facility]) 2018 ASA only no anticoagulants Past Surgical [...] no longer seeing her previous PCP in [place]. 3. Vitamin D deficiency - ICD9: 268.9, ICD10: E55.9 Start high dose vitamin D once weekly. Rx sent in. LE[facility]06-20-2023 History of Present illness Narrative* LEA Garcia-C - 02/22/2023 3:26 PM EDT This note was created using [employer]. Subjective Hue Titus is a 32 year [...] pain. She has started seeing a new crime specialist at . Past Medical History: PAST MEDICAL HISTORY Diagnosis Date ADHD (attention deficit hyperactivity disorder) Ovarian cyst PAF (paroxysmal atrial fibrillation) ([facility]) 07/2022 follows with cardiology Scoliosis SVT, lower extremity ([facility]) 2019 ASA only no anticoagulants Past Surgical [...] the prescribing of her Adderall Rx's from [facility] as she is no longer seeing her previous PCP in [place]. 3. Vitamin D deficiency - ICD9: 268.9, ICD10: E55.9 Start high dose vitamin D once weekly. Rx sent in. Ashwini Matute PA-C documented in this encounterGreene [facility] Hospital06-15-2023 Miscellaneous Notes* Telephone Encounter - [...] on that. * Telephone Encounter - Marnie aLrsen - 02/16/2023 2:29 PM EDT Patient is calling back in to see if this is possible to get. Let her know wither way through My chart. She is leaving out of town tomorrow. * Telephone Encounter - Pebbles Macdonald - 02/15/2023 4:21 PM EDT Patient has ended her membership with her provider in [place]. Patient thought Jenny was going totake over [...] PM EDT Last OV: 02/08/23 (Benjy) 01/11/23 (Amy) Next OV: 02/22/23 Patient's request for medication is as follows: Requested Prescriptions Pending Prescriptions Disp Refills dextroamphetamine-amphetamine (ADDERALL) 10 mg tablet Sig: Take 1 tablet by mouth every afternoon. ADDERALL XR 30 mg 24 hr capsule Sig: Take 1 capsule by mouth once daily. Please approve the above prescription(s) to electronically send to pharmacy. Teagan Green MA documented in this encounterGreene Memorial Hospital06-06-2023 NoteHNO ID: [id number] Author: RT Vinny(R) Service: ? Author Type: [...] BY: RT Vinny(R) February 08, 2023 4:08 [facility]06-06-2023 NoteHNO ID: [id number] Author: Chitra Burnett PA-C Service: ? Author Type: Physician Pouncing Lathe Operator Type: Progress Notes Filed: 02/08/2023 4:12 [...] spine ordered - has not yet called [facility] to schedule. She's concerned if something may [...] - XR THORACIC GENERAL 3V AP/LAT/SWIMMERS [facility] History of Present illness Narrative* [...] 08, 2023 4:08 PM documented in this encounterGreene Memorial Hospital06-06-2023 History of Present illness Narrative* [...] spine ordered - has not yet called [facility] to schedule. She's concerned if something may [...] AP/LAT/SWIMMERS Chitra Burnett PA-C documented in this encounterGreene Memorial Hospital06-02-2023 NoteHNO ID: [id number] Author: Chitra Burnett PA-C Service: ? Author Type: Physician Pouncing Lathe Operator Type: Progress Notes Filed: 02/04/2023 12:34 [...] yet. 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 She's currently followed by Dr Dennis for pain management and Spine. She reports Dr Dennis told her there's nothing additional he can do for her so she didn't think she would need to follow up. She had a CT Myelogram ordered by [facility] Spine - but it was scheduled in [place] as a traditional CT so it was [...] the Rx since she now lives in [place] Review of Systems All other systems reviewed [...] PCP out of state. Pt will call [facility] CT scheduling to set up the CT myelogram appropriately. LEA [facility]06-02-2023 History of Present illness Narrative* Chitra Burnett [...] yet. 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 She's currently followed by Dr Dennis for pain management and Spine. She reports Dr Dennis told her there's nothing additional he can do for her so she didn't think she would need to follow up. She hada CT Myelogram ordered by [facility] Spine - but it was scheduled in [place] as a traditional CT so it was [...] the Rx since she now lives in [place] Review of Systems All other systems reviewed [...] PCP out of state. Pt will call [facility] CT scheduling to set up the CT myelogram appropriately. Chitra Burnett PA-C documented in this encounterGreene Memorial Hospital06-01-2023 NoteHNO ID: [id number] Author: Aria Izquierdo PA-C Service: ? Author Type: Physician Pouncing Lathe Operator Type: Progress Notes Filed: 02/03/2023 4:11 [...] disorder) Ovarian cyst PAF (paroxysmal atrial fibrillation) ([facility]) 07/2022 follows with cardiology Scoliosis SVT, lower extremity ([facility]) 2018 ASA only no anticoagulants PAST SURGICAL [...] the second pill 8-10 hours prior to CONDENSER SETTER appt for cervical dilation. metoprolol tartrate, short [...] of this record were documented by the [employer]. I, Aria Izquierdo, have reviewed this information as documented for accuracy and performed all elements of history taking, and edited the record as necessary. ROS: SEE HPI PE: GENERAL: well-appearing, in no acute distress LUNGS: Normal inspiratory effort CONDENSER SETTER: deferred NEURO: Awake, alert and oriented A/P: [...] the date of the service which included [id number] patient care, completing clinical documentation, counseling and educating the patient/family/caregiver, and ordering medications, tests, or procedures.[facility]-01-[facility] History of Present illness Narrative* Aria [...] disorder) Ovarian cyst PAF (paroxysmal atrial fibrillation) ([facility]) 07/2022 follows with cardiology Scoliosis SVT, lower [...] the second pill 8-10 hours prior to CONDENSER SETTER appt for cervical dilation. metoprolol tartrate, short [...] of this record were documented by the [employer]. I, Aria Izquierdo, have reviewed this information as documented for accuracy and performed all elements of history taking, and editedthe record as necessary. ROS: SEE HPI PE: GENERAL: well-appearing, in no acute distress LUNGS: Normal inspiratory effort CONDENSER SETTER: deferred NEURO: Awake, alert and oriented A/P: [...] the date of the service which included [id number] patient care, completing clinical documentation, counseling and educating the patient/family/caregiver, and ordering medications, tests, or procedures. documented in this encounterGreene Memorial Hospital05-11-2023 NoteHNO ID: [id number] Author: Ashwini Matute PA-C Service: ? Author Type: Physician Pouncing Lathe Operator Type: Progress Notes Filed: 01/13/2023 2:09 PM Note Text: This note was created using [employer] Medi[employer]. Subjective Hue Titus is a 32 year old female. SHANNA Titus is a 32 year old female who presents today to establish care as a new patient. She has a history of juvenile scoliosis and is currently being treated by both crime specialist and pain management. She is on both gabapentin and lyrica for her chronic back pain and recently failed an attempted spinal cord stimulator procedure. She is awaiting additional CT imaging to determine next course of treatment. 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 She recently moved back to the area after living in [place] for over 5 yrs. She complains of [...] (attention deficit hyperactivity disorder) DVT, lower extremity (HCC) 2018 PAF (paroxysmal atrial fibrillation) (HCC) 07/2022 follows with cardiology Scoliosis Past Surgical [...] kg (119 lb) LMP (more content not included)...[facility]05-09-2023 Miscellaneous Notes * Telephone Encounter - Yue SALUD Dahl - 01/11/2023 3:22 PM EDT Behavioral Health Social Work Progress Note Patient identified for [facility] from: PCP Reason for referral: Resources Behavioral Health Resources: Psychology - talk therapy [facility] encounter type: Telephone Encounter, [employer] Message Attempts to Outreach: 1 attempt Referral made: Psychology - External Psychology-External referral type: Therapy Reason for external referral: Patient seeking intermediate designer support Final Disposition: Resources given Patient Discharged?: Yes Patient reported that caregiver was able to meet their needs today?: Yes [facility] consult received for anxiety and depression. [facility] placed telephone call at the request of the PCP to discuss behavioral health needs and provide referrals for outpatient support. Patient states she is looking to establish with a therapy provider. Would like telephone number to schedule within [facility] and externally. Will send the following: [facility] Central Scheduling Call Center [phone] [facility] ([place]) [phone] [facility] ([place]) Counseling only [phone] [facility] ([place]) Counseling only [phone] [employer] [facility] ([place]) Counseling only [phone] [facility] ([place]) [phone] Extension: [phone] [employer] ([place]) Counseling only [phone] [facility] ([place]) Counseling only [phone] [facility] [place] ([place]) Counseling only [phone] [facility] ([place]) [phone] [facility] ([place]) [phone] [employer] [facility] ([place]) Counseling only [phone] [facility] [facility] [place] ([place]) Counseling only [phone] [facility] ([place]) Counseling only [phone] [facility] ([place]) [phone] [facility] ([place]) Counseling only [phone] [facility] and Growth [place] ([place]) Counseling only [phone] [employer] ([place]) Counseling only [facility] [phone] [facility] ([place]) Counseling only [phone] [facility] ([place]) Counseling only [phone] [facility] ([place]) Counseling only [phone] [facility] ([place]) Counseling only [phone] SALUD Reeves, [facility]- January 11, 2023 documented in this encounterGreene Memorial Hospital04-28-2023 Miscellaneous Notes* Telephone Encounter - [...] 31, 2022 3:35 PM documented in this encounterGreene Memorial Hospital04-19-2023 History of Present illness Narrative* [...] 22, 2022 1:26 PM documented in this encounterGreene Memorial Hospital04-19-2023 NoteHNO ID: [id number] Author: Marco Slade, DO Service: ? Author Type: Physician Type: Progress Notes Filed: 12/26/2022 9:50 PM Note Text: [facility] [place] [facility] - Medical Spine Initial [...] now seeking neurosurgical evaluation for SCS at [facility]. Denies bowel/bladder incontinence or saddle anesthesia. The [...] surgery: -05/16/06 Dr. 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 Manan Garcia at [facility]: T2 to L2 PSF for scoliosis Previously treated by: -Pain Management Dr. Jolly Dennis. -Pain Management Dr. Miguel Angel Pinedo, [facility] [place] -[facility] Dr. Raymond Sheikh, Neurological Services [facility] in [place] - Rx PT on 02/2022 -Ortho Spine Surgery Dr. Rico Mustafa, [facility] in [place] -NSGY Dr. Shawn Hardin 07/24/21 - no signs of radiculopathy on imaging/EMG, did not recommend surgery; rec SNRB vs SCS. -NSGY Dr. Miguel Angel Allison at [facility] 2005. -NSGY Dr. Manan Garcia at [facility] 2004 PMH: PAF - previously on Eliquis [...] Illicit drugs: no Personal life: Moved to [place] in 2014 then back to [place] from [place] in 2021. 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 [facility] - Medical [...] is now seeking neurosurgicalevaluation for SCS at [facility]. Denies bowel/bladder incontinence or saddle anesthesia. The [...] surgery: -05/16/06 Dr. 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 Manan Garcia at [facility]: T2 to L2 PSF for scoliosis Previously treated by: -Pain Management Dr. Jolly Dennis. -Pain Management Dr. Migeul Angel Pinedo, [facility] in [place] -NSGY Dr. Raymond Sheikh, Neurological Services [facility] in [place] - Rx PT on 02/2022 -Ortho Spine Surgery Dr. Rico Mustafa, [facility] in [place] -NSGY Dr. Shawn Hardin 07/24/21 - no signs of radiculopathy on imaging/EMG, did not recommend surgery; rec SNRB vs SCS. -NSGY Dr. Miguel Angel Allison at [facility] 2005. -NSGY Dr. Manan Garcia at [facility] 2004 PMH: PAF - previously on Eliquis [...] Illicit drugs: no Personal life: Moved to [place] in 2014 then back to [place] from [place] in 2021. 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 SENSORY: sensation decreased to light touch [...] indicated. 01/14/2022 MRI lumbar spine without contrast, [place], [place]: Leftward lumbar curvature. No acute marrow [...] 05/06/2021 MRI lumbar spine without contrast, report, [place], [place]: There has been prior posterior spinal [...] may be of benefit. 03/16/2021 EMG/NCS RLE, [facility] [place], [place], Dr. Don Bailon MD: Mildly abnormal [...] tested) 06/16/2020 CT lumbar spine without contrast, [place], [place]: Thoracolumbar fusion. Bilateral rods and pedicle [...] the sacroiliac joints. 06/06/2020 XR lumbar AP/Flex/Ext, [employer] [place], [place]: There is partially visualized posterior thoracolumbar [...] of neurological status. 7) Future treatment considerations: -[place] [facility] Kris Rodrigues MD Spine [...] which included preparing to see the patient, [id number] patient care, completing clinical documentation, obtaining and/or reviewing separately obtained history, performing a medically appropriate examination, counseling and educating the pat ient/family/caregiver, ordering medications, tests, or procedures, independently interpreting results (not separately reported), and communicating results to the patient/family/caregiver. SIGNATURE: Marco Slade DO PATIENT NAME: Hue Aguilar DATE: December 22, 2022 TIME: 8:17 AM documented in this encounterGreene Memorial Hospital03-03-2023 NoteHNO ID: [id number] Author: Humberto Herndon MD Service: ? Author Type: Physician Type: Procedures Filed: 12/14/2022 1:03 PM Note Text: [place] [id number] NAME: HUE AGUILAR : 1990 ENROLLMENT: 11/08/2022 - 12/07/2022 Sinus rhythm with intermittent sinus tachycardia. Reviewed, Edited and Signed by Humberto Herndon MD December 14, 2022 1:02 [facility]03-03-2023 Miscellaneous Notes* Telephone Encounter - Yo Adames LPN - 11/05/2022 3:09 PM EST Called patient to inform her that a new order was placed for the 30 day [employer]. Called [employer] rep(Akash Kirby) to help expedite the order. Yo Adames LPN documented in this encounterGreene Memorial Hospital01-23-2023 Nurse Note* Carlyn Weber LPN - 09/27/2022 9:31 AM EST Audio/Video Technician present: For cardiology exam with Dr Corky Weber LPN documented in this encounterGreene Memorial Hospital01-23-2023 Instructions* Patient Instructions* Jessee Hamilton MD - 09/27/2022 9:30 AM EST Please, follow up with me after the echocardiogram and event monitor to discuss results. Please, see me as scheduled, or sooner should symptoms appear or worsen. documented in this encounterGreene Memorial Hospital01-23-2023 History of Present illness Narrative* [...] with spontaneous conversion into normal sinus rhythm. [id number] based on the information we have [...] future. CONTACT INFORMATION: Jessee Hamilton M.D. Staff Repairer [employer] [facility] [id number] [facility] [id number] documented in this encounterGreene Memorial Hospital01-11-2023 Miscellaneous Notes* Telephone Encounter - Ave Antonio MA - 09/15/2022 1:17 PM EST Received OV notes from [facility], requesting pt be scheduled as soon as possible. Pt already scheduled with Dr. Hamilton 09/27/2022. Sent for scanning. documented in this encounterGreene Memorial Hospital11-19-2022 NoteHNO ID: [id number] Author: Interface Note Service: ? Author Type: ? Type: Progress Notes Filed: 07/24/2022 2:42 AM Note Text: Epic Scheduled Downtime: 07/24/2022 1:00:00 AM to 07/24/2022 2:26:04 [id number] NoteHNO ID: [id number] Author: RT Michelle(R) Service: Radiology Author Type: Manufacturing Recruiter Type: Progress Notes Filed: 07/23/2022 11:18 PM [...] BY: RT Michelle(Nicole) July 23, 2022 11:18 [id number] NoteCOVID 19 RESULT: SARS-CoV-2 (Agent of COVID-19) Not Detected by RT-PCR or equivalent method. This test has been authorized by FDA under an Emergency Use Authorization (EUA). INFLUENZA A PCR: Negative for Influenza A by RT-PCR INFLUENZA B PCR: Negative for Influenza B by RT-PCR RSV PCR: Negative for Respiratory Syncytial Virus (RSV) by PCRon HospitalComment on above:Performed By: #### [id number] ####[facility] LABORATORYIA [id number] [facility], [place] [id number] [place] [address] OF JAMES Evaluation note* Diagnosis Palpitations- Primary Paroxysmal atrial fibrillation (HCC) Atrial fibrillation [facility]* Diagnosis Palpitations- Primary Paroxysmal atrial fibrillation (HCC) Atrial fibrillation documented in this encounter [facility] note* Diagnosis Chronic bilateral low back pain with right-sided sciatica- Primary 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), idiopathic Arthrodesis status Paresthesia of right foot Disturbance of skin sensation documented in this encounter [facility] note* Diagnosis Counseling for control regarding intrauterine device (IUD) documented in this encounter [facility] note* Diagnosis Neuropathy- Primary Mononeuritis of unspecified site [facility] this encounter [facility]* Diagnosis Upper back pain on right side- Primary Pain in thoracic spine [facility] Diagnosis Attention deficit hyperactivity disorder (ADHD), unspecified ADHD type- Primary [facility]* Diagnosis Mild episode of recurrent major depressive disorder (HCC)- Primary Attention deficit hyperactivity disorder (ADHD), unspecified ADHD type Vitamin D deficiency Unspecified vitamin D deficiency [facility] encounter [facility]* Diagnosis 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), idiopathic Attention deficit hyperactivity disorder (ADHD), unspecified ADHD type Neuropathy Mononeuritis of unspecified site [facility]* Diagnosis Attention deficit hyperactivity disorder (ADHD), unspecified ADHD type [facility]* Diagnosis Attention deficit hyperactivity disorder (ADHD), unspecified ADHD type [facility]* Diagnosis Attention deficit hyperactivity disorder (ADHD), unspecified ADHD type- Primary [facility]* Diagnosis Attention deficit hyperactivity disorder (ADHD), unspecified ADHD type [facility]* Diagnosis 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), idiopathic Neuropathy Mononeuritis of unspecified site [facility]* Diagnosis 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), idiopathic Neuropathy Mononeuritis of unspecified site [facility] Diagnosis Attention deficit hyperactivity disorder (ADHD), unspecified ADHD type [facility] Diagnosis Attention deficit hyperactivity disorder (ADHD), unspecified ADHD type [facility] Diagnosis Moderate episode of recurrent major depressive disorder (HCC)- Primary Attention deficit hyperactivity disorder (ADHD), unspecified ADHD type Alcohol abuse Alcohol abuse, unspecified 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), idiopathic Paroxysmal atrial fibrillation (HCC) Atrial fibrillation Neuropathy Mononeuritis of unspecified site Encounter for immunization Need for other specified prophylactic vaccination against single bacterial disease [facility] Diagnosis Paroxysmal atrial fibrillation (HCC)- Primary Atrial fibrillation Palpitations [facility] Diagnosis 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), idiopathic Neuropathy Mononeuritis of unspecified site [facility] Diagnosis 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), idiopathic Neuropathy Mononeuritis of unspecified site [facility] Diagnosis 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), 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 status [facility] Diagnosis Neuropathy- Primary Mononeuritis of unspecified site Lumbar radiculopathy Thoracic or lumbosacral neuritis or radiculitis, unspecified documented in this encounter [facility] Work Phone: Evaluation note* Diagnosis Low back pain, unspecified Radiculopathy, lumbar region Thoracic or lumbosacral neuritis or radiculitis, unspecified Arthrodesis status documented in this encounter [facility] Work Phone: Evaluation noteNo assessment information available [facility] Work Phone: History general Narrative - Reported* Type Description Date Medical History alcoholism Medical History migraine headache Medical History chronic depression Surgical History scoliosis repair Hospitalization History see above [employer] Other History of Present illness NarrativeTried to call patient to remind her to get labs before her CT myelogram. Called the numbers listed in EMR. The cell phone number listed is the wrong number and the number listed as home did not go through.[id number] Work Phone: Reason for referral (narrative)* Outpatient Procedure (Routine) - Pending Review Specialty Diagnoses / Procedures Referred By Contluigi t Referred [facility] Diagnoses Palpitations Procedures ECHO ECHO TTC R-T 2D W/WOM-MODE COMPL SPEC&COLR D Jessee Hamilton MD [address] [place] [address] [facility] [address] [place] [address] Referral ID Status Reason Start Date Expiration Date Visits Requested Visits Authorized [id number] Pending Review Auto-Generat ed Referral 09/27/2022 09/27/2023 1 1 * Outpatient Procedure (Routine) - Closed Specialty Diagnoses / Procedures Referred By Contac t Referred To Contact [facility] Diagnoses Palpitations Procedures ECG COMPLETE ECG ROUTINE ECG W/LEAST 12 LDS W/I&R Jessee Hamilton MD [address] [place] [address] [address] Referral ID Status Reason Start Date Expiration Date V isits Requested Visits Authorized [id number] Closed Auto-Generate d Referral 09/27/2022 09/27/2023 1 1 [facility] for referral (narrative)* Diagnostic Procedure Only (Routine) - Closed Specialty Diagnoses / Procedures Referred By Contac t Referred To Contact XR IMAGING Diagnoses 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 Procedures XR SCOLIOSIS PA STAND/LAT 2V RADEX ENTIR THRC LMBR CRV SAC SPI W/SKULL 2/3 VW Marco Slade DO [address] [place] [address] Xr Imaging Referral ID Status Reason Start Date Expiration Date V isits Requested Visits Authorized [id number] Closed Auto-Generate d Referral 12/22/2022 01/21/2024 1 1 * Consult, Test, Treat (Routine) - Pending Review Specialty Diagnoses / Procedures Referred By Contac t Referred To Contact Neurosurgery Diagnoses 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 Procedures CONSULT TO NEUROSURGERY OFFICE/OUTPATIENT NEW HIGH MDM 60-74 MINUTES Marco Slade DO [address] [place] [address] Referral ID Status Reason Start Date Expiration Date Visits Requested Visits Authorized [id number] Pending Review PCP Requested Referral 12/22/2022 12/22/2023 1 1 * Physical Therapy (Routine) - Pending Review Specialty Diagnoses / Procedures Referred By Contac t Referred To Contact [facility] Diagnoses 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 Procedures CONSULT TO PHYSICAL THERAPY PHYSICAL THERAPY EVALUATION HIGH COMPLEX 45 MINS Marco Slade DO [address] [place] [address] [address] Referral ID Status Reason Start Date Expiration Date Visits Requested Visits Authorized [id number] Pending Review Auto-Generat ed Referral 12/22/2022 12/22/2023 1 1 [facility] for referral (narrative)* Outpatient Procedure (Routine) - Pending Review Specialty Diagnoses / Procedures Referred By Contluigi t Referred To Contact [facility] Diagnoses Counseling for control regarding intrauterine device (IUD) Procedures INSERT INTRAUTERINE DEVICE LEVONORGESTREL IU 52MG 5 YR INSERT INTRAUTERINE DEVICE Aria Izquierdo PA-C [address] [place] [address] [facility] [address] [place] [id number] Referral ID Status Reason Start Date Expiration Date Visits Requested Visits Authorized [id number] Pending Review Auto-Generat ed Referral 02/03/2023 02/03/2024 1 1 [facility] for referral (narrative)* Diagnostic Procedure Only (Urgent) - Closed Specialty Diagnoses / Procedures Referred By Contac t Referred To Contact XR IMAGING Diagnoses Upper back pain on right side Procedures XR THORACIC GENERAL 3V AP/LAT/SWIMMERS RADEX SPINE THORACIC 3 VIEWS Chitra Burnett PA-C [address] [place] [address] Xr Imaging Referral ID Status Reason Start Date Expiration Date V isits Requested Visits Authorized [id number] Closed Auto-Generate d Referral 02/08/2023 03/09/2024 1 1 * Diagnostic Procedure Only (Urgent) - Closed Specialty Diagnoses / Procedures Referred By Contac t Referred To Contact XR IMAGING Diagnoses Upper back pain on right side Procedures XR SCAPULA 2V AP/LAT RIGHT RADEX SCAPULA COMPLETE Chitra Burnett PA-C [address] [place] [address] Xr Imaging Referral ID Status Reason Start Date Expiration Date V isits Requested Visits Authorized [id number] Closed Auto-Generate d Referral 02/08/2023 03/09/2024 1 1 [facility] for referral (narrative)* Diagnostic Procedure Only (Routine) - Closed Specialty Diagnoses / Procedures Referred By Contac t Referred To Contact XR IMAGING Diagnoses 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 Procedures XR SCOLIOSIS PA STAND/LAT 2V RADEX ENTIR THRC LMBR CRV SAC SPI W/SKULL 2/3 Marco Sandoval DO [address] [place] [address] [place] [address] Referral ID Status Reason Start Date Expiration Date V isits Requested Visits Authorized [id number] Closed Auto-Generate d Referral 12/22/2022 01/21/2024 1 1 [facility] for referral (narrative)* Consultation (Routine) - Authorized Specialty Diagnoses / Procedures Referred By Contac t Referred To Contact Pain Medicine Diagnoses [place] [address] [facility] [place] [address] Dimas Solitario MD PhD [address] [place] [phone] Referral ID Status Reason Start Date Expiration Date Visits Requested Visits Authorized [id number] Authorized Specialty Services Required 07/14/2023 07/13/2024 1 1 * Consultation (Routine) - Authorized Specialty Diagnoses / Procedures Referred By Contac t Referred To Contact Neurology [place] [address] [facility] [place] [phone] Referral ID Status Reason Start Date Expiration Date Visits Requested Visits Authorized [id number] Authorized Specialty Services Required 07/14/2023 07/13/2024 1 [...] W/SKULL 2/3 VW Marco Slade, DO [address] [place] [address] Xr Imaging [place] [address] Referral ID Status Reason Start Date Expiration Date V isits Requested Visits Authorized [id number] Closed Auto-Generate d Referral 12/22/2022 01/21/2024 1 1 [facility] for visit NarrativeSELF REFERRAL PINCHED NERVE LOW BACK [employer] Other Summary Purpose Family History No Family [...] (ADHD), unspecified ADHD type Ashwini Matute PA-C [address] [place] [address] Referral ID Status Reason Start Date Expiration Date Visits Re quested Visits Authorized [id number] Closed 1 1 Referral ID Status Reason Start Date Expiration Date Visits Re quested Visits Authorized [id number] Closed 1 1 Referral ID Status Reason Start Date Expiration Date Visits Re quested Visits Authorized [id number] Closed 1 1 Referral ID Status Reason Start Date Expiration Date V isits Requested Visits Authorized [id number] Pending Review 1 1 Referral ID Status Reason Start Date Expiration Date Visits Re quested Visits Authorized [id number] Closed 1 1 Referral ID Status Reason Start Date Expiration Date Visits Re quested Visits Authorized [id number] Closed 1 1 Referral ID Status Reason Start Date Expiration Date Visits Re quested Visits Authorized [id number] Closed 1 1 Reason Aqua therapy - evalu ate and treat Diagnosis 1 Lumbar radiculopathy , right (M54.16) Referral Organization [facility] urosurgery Referring Provider First Name Lorie Referring Provider Last Name Cary Referring Provider Specialty Nurse Pract itioner Referred Organization [facility] Referred Address [address] [place], [place],[address] Referred Provider Specialty Physical The rapist Referral Priority Routine Chief Complaint and Reason for Visit Chief Complaint M54.50 Additional Source Comments INFORMATION SOURCE (unrecogn ized section and content) DATE CREATED AUTHOR 07/25/2022 [facility] DATE CREATED AUTHOR AUTHOR'S ORGANIZ ATION 03/12/2023 [employer] DATE CREATED AUTHOR AUTHOR'S ORGANIZ ATION 05/03/2023 [facility] DATE CREATED AUTHOR AUTHOR'S ORGANIZ ATION 06/22/2023 [facility] DATE CREATED AUTHOR AUTHOR'S ORGANIZ ATION 07/18/2023 [facility] DATE CREATED AUTHOR AUTHOR'S ORGANIZ ATION 10/15/2023 [facility] DATE CREATED AUTHOR AUTHOR'S ORGANIZ ATION 11/09/2023 [facility] DATE CREATED AUTHOR AUTHOR'S ORGANIZ ATION 11/11/2023 [facility] DATE CREATED AUTHOR AUTHOR'S JED TOUSSAINTION 12/21/2023 [facility] Source Comments (unrecognize d section and content) In the event this informatio n is protected by the Federal Confidentiality of Alcohol and Drug Abuse Patient Records regulations: The Federal rules restrict any use of the information to criminally investigate or prosecute any alcohol or drug abuse patient.[facility] the event this information is protected by the Federal Confidentiality of Alcohol and Drug Abuse Patient Records regulations: The Federal rules restrict any use of the information to criminally investigate or prosecute any alcohol or drug abuse patient.[facility] the event this information is protected by the Federal Confidentiality of Alcohol and Drug Abuse Patient Records regulations: The Federal rules restrict any use of the information to criminally investigate or prosecute any alcohol or drug abuse patient.[facility] the event this information is protected by the Federal Confidentiality of Alcohol and Drug Abuse Patient Records regulations: The Federal rules restrict any use of the information to criminally investigate or prosecute any alcohol or drug abuse patient.[facility] the event this information is protected by the Federal Confidentiality of Alcohol and Drug Abuse Patient Records regulations: The Federal rules restrict any use of the information to criminally investigate or prosecute any alcohol or drug abuse patient.[facility] the event this information is protected by the Federal Confidentiality of Alcohol and Drug Abuse Patient Records regulations: The Federal rules restrict any use of the information to criminally investigate or prosecute any alcohol or drug abuse patient.[facility] the event this information is protected by the Federal Confidentiality of Alcohol and Drug Abuse Patient Records regulations: The Federal rules restrict any use of the information to criminally investigate or prosecute any alcohol or drug abuse patient.[facility] the event this information is protected by the Federal Confidentiality of Alcohol and Drug Abuse Patient Records regulations: The Federal rules restrict any use of the information to criminally investigate or prosecute any alcohol or drug abuse patient.[facility] the event this information is protected by the Federal Confidentiality of Alcohol and Drug Abuse Patient Records regulations: The Federal rules restrict any use of the information to criminally investigate or prosecute any alcohol or drug abuse patient.[facility] the event this information is protected by the Federal Confidentiality of Alcohol and Drug Abuse Patient Records regulations: The Federal rules restrict any use of the information to criminally investigate or prosecute any alcohol or drug abuse patient.[facility] the event this information is protected by the Federal Confidentiality of Alcohol and Drug Abuse Patient Records regulations: The Federal rules restrict any use of the information to criminally investigate or prosecute any alcohol or drug abuse patient.[facility] the event this information is protected by the Federal Confidentiality of Alcohol and Drug Abuse Patient Records regulations: The Federal rules restrict any use of the information to criminally investigate or prosecute any alcohol or drug abuse patient.[facility] the event this information is protected by the Federal Confidentiality of Alcohol and Drug Abuse Patient Records regulations: The Federal rules restrict any use of the information to criminally investigate or prosecute any alcohol or drug abuse patient.[facility] the event this information is protected by the Federal Confidentiality of Alcohol and Drug Abuse Patient Records regulations: The Federal rules restrict any use of the information to criminally investigate or prosecute any alcohol or drug abuse patient.[facility] the event this information is protected by the Federal Confidentiality of Alcohol and Drug Abuse Patient Records regulations: The Federal rules restrict any use of the information to criminally investigate or prosecute any alcohol or drug abuse patient.[facility] the event this information is protected by the Federal Confidentiality of Alcohol and Drug Abuse Patient Records regulations: The Federal rules restrict any use of the information to criminally investigate or prosecute any alcohol or drug abuse patient.[facility] the event this information is protected by the Federal Confidentiality of Alcohol and Drug Abuse Patient Records regulations: The Federal rules restrict any use of the information to criminally investigate or prosecute any alcohol or drug abuse patient.[facility] the event this information is protected by the Federal Confidentiality of Alcohol and Drug Abuse Patient Records regulations: The Federal rules restrict any use of the information to criminally investigate or prosecute any alcohol or drug abuse patient.[facility] HospitalIn the event this information is protected by the Federal Confidentiality of Alcohol and Drug Abuse Patient Records regulations: The Federal rules restrict any use of the information to criminally investigate or prosecute any alcohol or drug abuse patient.[facility]In the event this information is protected by the Federal Confidentiality of Alcohol and Drug Abuse Patient Records regulations: The Federal rules restrict any use of the information to criminally investigate or prosecute any alcohol or drug abuse patient.[facility] the event this information is protected by the Federal Confidentiality of Alcohol and Drug Abuse Patient Records regulations: The Federal rules restrict any use of the information to criminally investigate or prosecute any alcohol or drug abuse patient.[facility] HospitalIn the event this information is protected by the Federal Confidentiality of Alcohol and Drug Abuse Patient Records regulations: The Federal rules restrict any use of the information to criminally investigate or prosecute any alcohol or drug abuse patient.[facility]In the event this information is protected by the Federal Confidentiality of Alcohol and Drug Abuse Patient Records regulations: The Federal rules restrict any use of the information to criminally investigate or prosecute any alcohol or drug abuse patient.[facility]In the event this information is protected by the Federal Confidentiality of Alcohol and Drug Abuse Patient Records regulations: The Federal rules restrict any use of the information to criminally investigate or prosecute any alcohol or drug abuse patient.[facility]In the event this information is protected by the Federal Confidentiality of Alcohol and Drug Abuse Patient Records regulations: The Federal rules restrict any use of the information to criminally investigate or prosecute any alcohol or drug abuse patient.[facility]In the event this information is protected by the Federal Confidentiality of Alcohol and Drug Abuse Patient Records regulations: The Federal rules restrict any use of the information to criminally investigate or prosecute any alcohol or drug abuse patient.[facility]In the event this information is protected by the Federal Confidentiality of Alcohol and Drug Abuse Patient Records regulations: The Federal rules restrict any use of the information to criminally investigate or prosecute any alcohol or drug abuse patient.[facility]In the event this information is protected by the Federal Confidentiality of Alcohol and Drug Abuse Patient Records regulations: The Federal rules restrict any use of the information to criminally investigate or prosecute any alcohol or drug abuse patient.[facility] HospitalIn the event this information is protected by the Federal Confidentiality of Alcohol and Drug Abuse Patient Records regulations: The Federal rules restrict any use of the information to criminally investigate or prosecute any alcohol or drug abuse patient.[facility] HospitalIn the event this information is protected by the Federal Confidentiality of Alcohol and Drug Abuse Patient Records regulations: The Federal rules restrict any use of the information to criminally investigate or prosecute any alcohol or drug abuse patient.[facility]In the event this information is protected by the Federal Confidentiality of Alcohol and Drug Abuse Patient Records regulations: The Federal rules restrict any use of the information to criminally investigate or prosecute any alcohol or drug abuse patient.[facility] HospitalIn the event this information is protected by the Federal Confidentiality of Alcohol and Drug Abuse Patient Records regulations: The Federal rules restrict any use of the information to criminally investigate or prosecute any alcohol or drug abuse patient.[facility] HospitalIn the event this information is protected by the Federal Confidentiality of Alcohol and Drug Abuse Patient Records regulations: The Federal rules restrict any use of the information to criminally investigate or prosecute any alcohol or drug abuse patient.[facility] HospitalIn the event this information is protected by the Federal Confidentiality of Alcohol and Drug Abuse Patient Records regulations: The Federal rules restrict any use of the information to criminally investigate or prosecute any alcohol or drug abuse patient.[facility] HospitalIn the event this information is protected by the Federal Confidentiality of Alcohol and Drug Abuse Patient Records regulations: The Federal rules restrict any use of the information to criminally investigate or prosecute any alcohol or drug abuse patient.[facility] HospitalIn the event this information is protected by the Federal Confidentiality of Alcohol and Drug Abuse Patient Records regulations: The Federal rules restrict any use of the information to criminally investigate or prosecute any alcohol or drug abuse patient.[facility] HospitalIn the event this information is protected by the Federal Confidentiality of Alcohol and Drug Abuse Patient Records regulations: The Federal rules restrict any use of the information to criminally investigate or prosecute any alcohol or drug abuse patient.[facility] Reason for Visit (unrecogniz ed section and content) Reason Comments Received Outside Medical Records Reason Comments CARD New Patient Consult Reason Comments Back [facility]. She has history of surgery for scoliosis 2004 and 2005. Reason Comments Scans Reason Comments Behavioral Health/Social Work Reason Comments Well Woman Specialty Diagnoses / Procedures Referred By Edy copeland Referred To Contact Diagnoses Counseling for control regarding intrauterine device (IUD) Procedures CONSULT TO CHEMISTRY INSTRUCTOR OFFICE/OUTPATIENT [facility] 60-74 MINUTES Ashwini Matute PA-C [address] [place] [address] Referral ID Status Reason Start Date Expiration Date Visits Requested Visits Authorized [id number] Pending Review PCP Requested Referral Auto-Generate d Referral 01/11/2023 01/11/2024 1 1 Reason Comments Needs Work Note Called off today due to Neuropathy. Pt is in a lot of pain. Episodes every 30 minutes. Specialty Diagnoses / Procedures Referred By Contac t Referred To Contact [facility] Diagnoses Palpitations Procedures ECHO ECHO TTHRC R-T 2D W/WOM-MODE COMPL SPEC&COLR D Jessee Hamilton MD [address] [place] [address] [address] Referral ID Status Reason Start Date Expiration Date Visits Requested Visits Authorized [id number] Authorized Auto-Generat ed Referral 11/25/2022 09/04/2023 1 [...] Care Teams (unrecognized sec tion and content) Front Sight Attacher Relationship Specialty Start Date End Date Ashwini Matute PA-C [address] [place] [address] PCP - General Physician Pouncing Lathe Operator 01/11/23 Front Sight Attacher Relationship Specialty Start Date End Date Ashwini Matute PA-C [address] [place], [place] [id number] PCP - General Physician Pouncing Lathe Operator 01/11/23 Front Sight Attacher Relationship Specialty Start Date End Date Amy Ashwini Lim PA-C [address] [place] [address], [place] [address] PCP - General Physician Pouncing Lathe Operator 01/11/23 Front Sight Attacher Relationship Specialty Start Date End Date Amy Ashwini Lim PA-C [address] [place] [address], [place] [address] PCP - General Physician Pouncing Lathe Operator 01/11/23 Front Sight Attacher Relationship Specialty Start Date End Date Amy Ashwini Lim PA-C [address] [place] [address], [place] [address] PCP - General Physician Pouncing Lathe Operator 01/11/23 Front Sight Attacher Relationship Specialty Start Date End Date Amy Ashwini Lim PA-C [address] [place] [address], [place] [address] PCP - General Physician Pouncing Lathe Operator 01/11/23 Front Sight Attacher Relationship Specialty Start Date End Date Amy Ashwini Lim PA-C [address] [place] [address], [place] [address] PCP - General Physician Pouncing Lathe Operator 01/11/23 Front Sight Attacher Relationship Specialty Start Date End Date Amy Ashwini Lim PA-C [address] [place] [address], [place] [address] PCP - General Physician Pouncing Lathe Operator 01/11/23 Front Sight Attacher Relationship Specialty Start Date End Date Amy Ashwini Lim PA-C [address] [place] [address], [place] [address] PCP - General Physician Pouncing Lathe Operator 01/11/23 Front Sight Attacher Relationship Specialty Start Date End Date FineAshwini wolf PA-C [address] [facility] [place] [address] PCP - General Physician Pouncing Lathe Operator 01/11/23 Front Sight Attacher Relationship Specialty Start Date End Date Ashwini Matute PA-C [address] [facility] [place] [address] PCP - General Physician Pouncing Lathe Operator 01/11/23 Front Sight Attacher Relationship Specialty Start Date End Date Ashwini Matute PA-C [address] [facility] [place] [address] PCP - General Physician Pouncing Lathe Operator 01/11/23 Front Sight Attacher Relationship Specialty Start Date End Date Ashwini Matute PA-C [address] [place] [address], [place] [address] PCP - General Physician Pouncing Lathe Operator 01/11/23 Front Sight Attacher Relationship Specialty Start Date End Date Ashwini Matute PA-C [address] [facility] [place] [address] PCP - General Physician Pouncing Lathe Operator 01/11/23 Front Sight Attacher Relationship Specialty Start Date End Date Ashwini Matute PA-C [address] [facility] [place] [address] PCP - General Physician Pouncing Lathe Operator 01/11/23 Front Sight Attacher Relationship Specialty Start Date End Date Ashwini Matute PA-C [address] [place] [address], [place] [address] PCP - General Physician Pouncing Lathe Operator 01/11/23 Front Sight Attacher Relationship Specialty Start Date End Date Amy Ashwini Lim PA-C [address] [facility] [place] [address] PCP - General Physician Pouncing Lathe Operator 01/11/23 Front Sight Attacher Relationship Specialty Start Date End Date Amy Ashwini Lim PA-C [address] [facility] [place] [address] PCP - General Physician Pouncing Lathe Operator 01/11/23 Front Sight Attacher Relationship Specialty Start Date End Date AmyAshwini PA-C [address] [place] [address], [place] [address] PCP - General Physician Pouncing Lathe Operator 01/11/23 Front Sight Attacher Relationship Specialty Start Date End Date AmyAshwini PA-C [address] [place] [address], [place] [address] PCP - General Physician Pouncing Lathe Operator 01/11/23 Front Sight Attacher Relationship Specialty Start Date End Date AmyAshiwni PA-C [address] [facility] [place] [address] PCP - General Physician Pouncing Lathe Operator 01/11/23 Front Sight Attacher Relationship Specialty Start Date End Date AmyAshwini PA-C [address] [facility] [place] [address] PCP - General Physician Pouncing Lathe Operator 01/11/23 Front Sight Attacher Relationship Specialty Start Date End Date AmyAshwini PA-C [address] [place] [address], [place] [address] PCP - General Physician Pouncing Lathe Operator 01/11/23 Front Sight Attacher Relationship Specialty Start Date End Date Ashwini Matute PA-C [address] [address] PCP - General 02/10/23 Front Sight Attacher Relationship Specialty Start Date End Date Ashwini Matute PA-C [address] [address] PCP - General 02/10/23 Team Status: Active Member Role Status Dates PHYSICIAN NO FAMILY Primary Care Provider Active Team Status: Inactive Member Role Status Dates PHYSICIAN NO FAMILY Primary Care Provider Active Lorie Townsend AGRICULTURE SCIENTIST-C Attending Provider Active Goals (unrecognized section and [...] BE BASED ON THE PRIMARY CLINICAL RECORDS. [facility] [facility]. provides no warranty or guarantee of the accuracy or completeness of information in this document.
[2024-02-27 07:20] VITALS: BP 119/83; PULSE 80; TEMP 36.8; O2SAT 99
[2024-02-27 07:42] LABS: HCG Qualitative NEGATIVE (NEGATIVE); Internal Control Within Normal Limits
[2024-02-27 08:17] VITALS: BP 116/82; BP 119/80; PULSE 72; PULSE 75; O2SAT 97; O2SAT 98
--- NOTE | 2024-02-27 08:21 | P.ON_ITS ---
Date of procedure: 02/27/24 Pre-op diagnosis: Pain due to lumbar stenosis w neurogenic claudication, lumbar radiculopathy Post-op diagnosis: same as pre-op Procedure: Procedure: Right L5-S1, S1-2 transforaminal epidural steroid injection Medications: Bupivacaine 0.25% 2cc, lidocaine 2% 1cc, kenalog 80mg The patient was seen and examined in the preoperative holding area.? Informed consent was obtained and placed on the chart.? Patient was brought to the medical procedure unit and placed in the prone position where a timeout was completed verifying the correct patient, procedure site, position, and planned special equipment using sterile aseptic technique.? Under direct fluoroscopic visualization a 25-gauge Quincke tipped spinal needle was advanced to the designated neural foramen where contrast dye was injected to show adequate spread.? The needle was inserted at level right L5-S1. There was no evidence of vascular or adverse uptake.? Epidural spread was appreciated.? The above- mentioned injectate was then placed in a 1.5 mL aliquot preceded by negative aspiration.? The needle was removed. The needle was inserted and the procedure repeated at level right S1-2.? The surgery site was covered.? Patient was taken to the postprocedural recovery area and monitored for an appropriate length of time before found suitable for discharge in the accompaniment of a responsible adult. Anesthesia: Local Surgeon: Chucky Hernandez Pathology: none sent Condition: stable Disposition: no change
[2024-02-27] MEDS: 0.9 % SODIUM CHLORIDE 10 ML SYRINGE - SALINE FLUSH INJ (08:22)
[2024-02-27] MEDS: IOHEXOL 240 MG/ML - 10 ML VIAL 12 MG INJ (08:23)
[2024-02-27] MEDS: BUPIVACAINE HCL 0.25% PF 25 MG/10 ML VIAL INJ (08:23)
[2024-02-27] MEDS: TRIAMCINOLONE ACETONIDE 40 MG/ML VIAL 80 MG INJ (08:23)
[2024-02-27] MEDS: LIDOCAINE HCL 2% PF 100 MG/5 ML VIAL 3 ML INJ (08:23)
== END 2024-02-27 08:27 | disposition home or self-care (01) ==
LOC: SURGOUT 07:02
PROVIDERS: Visit Provider Anesthesiology
DX: M48.062 Spinal stenosis, lumbar region with neurogenic claudication (principal); M54.16 Radiculopathy, lumbar region
CPT/HCPCS: 36415; 64483; 64484; 84703; J0665; J3301; Q9966

== ENCOUNTER 2024-02-29 14:12 | Outpatient (RCR) | payer OTHER, SELFPAY | END 2024-04-13 10:13 | disposition home or self-care (01) | LOC: PT 14:12 | PROVIDERS: Visit Provider Nurse Practitioner | DX: M48.062 Spinal stenosis, lumbar region with neurogenic claudication (principal) | CPT/HCPCS: 97113; 97162 ==

== ENCOUNTER 2024-03-14 14:10 | Outpatient (OUT) | payer OTHER, SELFPAY ==
--- NOTE | 2024-03-14 14:59 | P.CN_ITS ---
Consult Note: HPI Data of Consult Patient: known to practice within the last 3 years Consult date: 09/26/23 Requesting Physician: Ele Smith NP Primary Care Provider: Justo Mendez Consult Narrative Reason for consult: f/u Narrative: 33yof who presents for evaluation. Had scoliosis corrective surgery in youth, thoracolumbar fusion in place. Has persistent right lower extremity and foot pain. Lumbar CT shows foraminal stenosis in lower lumbar spine. Has engaged in >6 weeks of provider directed home exercise course, with minimal benefit. Uses gabapentin and lyrica, which has helped keep symptoms at bay. Denies adverse med side effects. Patient previously underwent right L5-S1 S1-S2 TFESI with> 50% improvement in pain and functional ability . Right foot pain 5/10 increasing to 8/10 with standing walking and activity, continues to report numbness tingling burning. Most recent right L5/S1 S1/F TFESI providing no improvement cc:: CC: Ele Smith NP Review of Systems ROS Status of ROS 10 or more systems reviewed and unremark able except as noted in history and below Musculoskeletal Reports: extremity pain PFSH PFSH Medical History (Updated 02/27/24 @ 07:30 by Huma Dunne) Scoliosis ?M41.9 - Scoliosis, unspecified (ICD-10) H/O scoliosis ?Z87.39 - Personal history of other diseases of the musculoskeletal system and connective tissue (ICD-10) Atrial fibrillation ?I48.91 - Unspecified atrial fibrillation (ICD-10) Irregular heart beat ?I49.9 - Cardiac arrhythmia, unspecified (ICD-10) Meds Home Medications and Allergies Home Medications ?Medication ?Instructions ?Recorded ?Confirmed ?Type bupropion HCl 150 mg tablet,12 hr 150 mg PO DAILY 09/26/23 02/27/24 History sustained-release (Wellbutrin SR) dextroamphetamine-amphetamine 10 10 mg PO DAILY 09/26/23 02/27/24 History mg tablet (Adderall) dextroamphetamine-amphetamine ER 30 mg PO DAILY 09/26/23 02/27/24 History 30 mg 24hr capsule,extend release (Adderall XR) escitalopram oxalate 20 mg tablet 20 mg PO DAILY 09/26/23 02/27/24 History (Lexapro) ibuprofen 800 mg tablet 800 mg PO DAILY PRN pain 09/26/23 02/27/24 History metoprolol tartrate 25 mg tablet 25 mg PO Q12H 09/26/23 02/27/24 History pregabalin 75 mg capsule 75 mg PO Q8H 09/26/23 02/27/24 History gabapentin 600 mg tablet 1,200 mg (2 x 600 mg) PO TID #180 12/15/23 02/27/24 Rx tabs gabapentin 600 mg tablet 1,200 mg (2 x 600 mg) PO TID #180 03/14/24 Rx tabs Allergies Allergy/AdvReac Type Severity Reaction Status Date / Time No Known Drug Allergies Allergy Verified 02/27/24 07:31 Exam Narrative Exam Narrative: Psych-alert and oriented x 3. Attentive and appropriate, constitutionally normal, displays normal mood and affect per situation. There are no obvious deficits in memory, reasoning, or intellect.? Skin-no obvious rashes, bruising, erythema noted to the patient's area of pain.? Extremities- extremities are warm with minimal edema and palpable pulses. Lumbar-tenderness to palpation noted in the lumbar spine and paraspinal musculature. Pain is not elicited with flexion, extension, and lateral rotation of the lumbar spine. Range of motion is not diminished with these motions. Facet loading maneuvers are negative.? Strength-noted to be unremarkable with the exception of decreased strength rated at 4 out of 5 in right anterior tibialis, posterior tibialis. Sensory-no notable sensory deficits in the bilateral lower extremities to touch or pinprick in all dermatomal distributions with the exception to decreased sensation to the right L5, S1 dermatomal distribution Coordination remains intact.? Gait remains non-antalgic Constitutional Documenting provider has reviewed patient's vital signs: yes Common normals: no apparent distress, oriented x3, healthy appearing, alert and well nourished General appearance: cooperative [facility] Common normals: normocephalic, hearing grossly normal bilaterally and moist oral mucous membranes Head and scalp: normocephalic Eye Common normals: PERRL Pupil: PERRL Neck & C-Spine Common normals: full ROM General: normal visual inspection Chest Common normals: inspection of chest normal Respiratory Common normals: normal respiratory effort, no retractions and no use of accessory muscles Neuro Common normals: oriented x3, CN's II-XII intact bilaterally, moves all extremities, no focal motor deficits, no sensory deficits noted and deep tendon reflexes 2+ bilaterally Sensorium/orientation: alert Motor exam: strength 5/5 throughout and no movement abnormalities noted Psych Common normals: mental status grossly normal, thought process normal, cooperative, affect normal, speech normal and activity/motor behavior normal Speech: normal speech Thought process: normal thought process Results Additional Findings Additional findings: If on a controlled substance or opioids, I have checked an [place] report on this patient and there are no aberrancies noted in the prescribing history.??If on a controlled substance or opioid a drug screen was completed and reviewed within the last year, and if there has not been a drug screen completed we ordered one today to monitor higher risk, state monitored pain medication use. As part of providing excellent, safe, comprehensive care, the following was completed at our patient's visit: 1. A medication reconciliation and review to ensure accurate knowledge of current/active medications, including asking our patients to inform us about any [id number] medications or herbal remedies/nutritional supplements/alternative remedies. 2. A review to specifically ensure our patients have had annual screening for screening for depression, screening for tobacco use, and screening for unhealthy alcohol use. For concerning screenings had a discussion with the patient, provided patient education, and recommended follow-up with primary care provider when appropriate. If patient noted with a risk of falling, they received education on strength, gait, and balance training to prevent future risk of falling. Assessment and Plan Assessment and Plan (1) Lumbar postlaminectomy syndrome: (2) Myofascial pain: Assessment and Plan: intermittent right calf muscle cramps/spasms, worse at night (3) Lumbar stenosis with neurogenic claudication: Plan declining right L5/S1 S1/2 TFESI with steroid rotation, submit for right distal sciatic nerve block continue tizanidine 4-8mg BID PRN myofascial pain continue current medication regimen, denies side effects continue aquatherapy and HEP as tolerated continue f/u with psychiatrist failed Spinal Cord Stimulator trial implant with previous pain management provider in December 2022, x3 attempts f/u 2 weeks after injection
== END 2024-03-14 14:11 | disposition home or self-care (01) ==
PROVIDERS: Visit Provider Nurse Practitioner
DX: M79.671 Pain in right foot (principal); G89.29 Other chronic pain; M48.062 Spinal stenosis, lumbar region with neurogenic claudication; M96.1 Postlaminectomy syndrome, not elsewhere classified; M79.18 Myalgia, other site
CPT/HCPCS: G0463

== ENCOUNTER 2024-04-02 10:36 | Day surgery (SDC) | payer OTHER, SELFPAY ==
--- OUTSIDE RECORDS SUMMARY | 2024-04-02 10:55 | XMS_ITS | CCD ---
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 Ashwini Guerrero Primary Care Un available MD TERRIE BROWN Attending Unavailabl e Self, Referral Referring Unavailable Amy, Ms. Ashwini Guerrero Primary Care Un available MD TERRIE BROWN Attending Unavailabl e Amy, Ms. Ashwini Guerrero Primary Care Un [...] Attending Unavailable ASHWINI MATUTE Primary Care Unavaila ble CHITRA BURNETT Referring Unavailable FINEFROCK, ASHWINI L Referring Unavaila ble FINEFROCK, ASHWINI L Primary Care Unavaila ble FINEFROCK, ASHWINI L Attending Unavaila ble FINEFROCK, ASHWINI L Primary Care Unavaila ble GLASARIA SCHMIDT Attending Unavailable GLASARIA SCHMIDT Referring Unavailable FINEFROCK, ASHWINI L Primary Care Unavaila ble FINEFROCK, ASWHINI L Attending Unavaila ble FINEFROCK, ASHWINI L Primary Care Unavaila ble FINEFROCK, ASHWINI L Referring Unavaila ble FINEFROCK, ASHWINI L Primary Care Unavaila ble FINEFROCK, ASHWINI L Primary Care Unavaila ble JESSEE HAMILTON Attending Unavailable MARCO SLADE Attending Unavailable MARCO SLADE Referring Unavailable Lorie Townsend Attending Unavailable Lorie Townsend Admitting Unavailable NO FAMILY, PHYSICIAN Primary Care Unavailable KIANA GAUTHIER Attending Unavailable BOBO VIGIL Attending Unavailable David ROSE, Chucky Landaverde Attending [...] every afternoon. Take 1 capsule by mo [facility] once daily for 30 days. Take 1 [...] on above: Take 1 capsule by mo [facility] once daily. atomoxetine 100 mg oral capsule [...] : 11-Dec-2012 [facility] Gabapentin 600 MG 1 tablet Orally Once a day Active Comment on above: TAKE 1 TABLET THREE TIMES A DAY Take 2 tablets by mo [facility] three times daily for 30 days. Take 2 tablets by mo [facility] three times a day for 30 days. [...] the second pill 8-10 hours prior to CAKE FORMER appt for cervical dilation. 2 tablet 0 02/03/2023 02/04/2023 Discontinued Comment on above: 1 tablet as directed . Take by mouth 2 days prior to appt, and the second pill 8-10 hours prior to CAKE FORMER appt for cervical dilation. 1 tablet as directed for 2 doses. Take by mouth 2 days prior to appt, and the second pill 8-10 hours prior to CAKE FORMER appt for cervical dilation. perflutren lipid microspheres [...] Start: 07-24-2022 take 2 tablets by mo uth twice daily, then take 1 tablet by [...] once V itamin D (Ergocalciferol) 1.25 MG (40000 UT) Oral Capsule Quantity: 12 Refills: 0 Ordered: 26-Sep-2013 DO Start : 26-Sep-2013 Active take 1 capsule by mo [facility] every week ergocalciferol (Vitamin D-2) 1.25 MG (56599 UT) capsule Take 1 capsule (1,250 mcg) by mouth 1 (one) time per week. 0 Active Comment on above: TAKE 1 CAPSULE ONCE A WEEK Take 1 capsule by mo [facility] one time a week. metoprolol tartrate 25 [...] Comment on above: Take 1 tablet by amriat twice daily. take 1 tablet by amrita [...] STATES TO STOP MEDS AND ASPIRIN Normal [facility] Office Visiton 12-20-2023 Follow-up visit [id number] Hue Tiuts 1990 F Date Provider Department Center 12/20/2023 241BOBO RABAGO ISAAC Mas Family History Problem Relation Age of Onset Atrial fibrillation Mother Stroke Maternal Grandmother Family Status - Relation Status Age at Mother Maternal Grandmother Level of Service:51490 [place] OFFICE/OUTPATIENT ESTABLISHED LOW MDM 20 MIN Normal [facility] Office Visiton 10-31-2023 Follow-up visit [id number] Hue Titus 1990 F Date Provider Department Center 10/31/2023 KIANA BILLINGS ISAAC Mas Family History Problem Relation Age of Onset Atrial fibrillation Mother Stroke Maternal Grandmother Family Status - Relation Status Age at Mother Maternal Grandmother Level of Service:59060 [place] OFFICE/OUTPATIENT NEW MODERATE MDM 45 MINUTES Normal [facility] CNCOon 10-14-2023 CNCO Letter Text Normal [facility] XR lumbar spine 6V w bending on 09-12-2023 XR lumbar spine 6V w bending [facility] [place] [address] [place] [address] XRay Report Signed Patient: Hue Titus MR#: [id number] : 1990 Acct:[id number] Age/Sex: 33 / F ADM Date: 09/12/23 Loc: XD Room: Type: [facility] Attending Dr: Lorie PETERSONC Copies to: SAUL Cortez Ordering Provider: SAUL [...] Amberly Livingston M.D.09/12/2023 5:18 PM Dictation Location: [place] [address] Transcribed By: [place] 09/12/231717 Dictated By: Amberly Livingston MD 09/12/231714 Signed By: 09/12/231717 [facility] Wilda 05-27-2023 CNOV Office Visit ([facility] ) HUE TITUS ([id number]) 1990 F T Date Time Provider Department 05/27/23 1:30 PM JESSEE HAMILTON During your visit today, we recorded the following information about you: Pulse Blood pressure Weight Height 97/minute 124/76 65.8 kg 1.702 m Jessee Hamilton MD 05/28/2023 8:48 AM Signed PRIMARY CARE PHYSICIAN: Ashwini Matute [address] [place] [address] REFERRING PHYSICIAN: No referring provider defined for this encounter. CHIEF COMPLAINT: Abnormal Holter HISTORY OF PRESENT ILLNESS: From my office notes on September 27, 2022 Probably paroxysmal atrial fibrillation, with spontaneous conversion into normal sinus rhythm. [id number] 0 based on the information we have [...] disorder) Ovarian cyst PAF (paroxysmal atrial fibrillation) ([facility]) 07/2022 follows with cardiology Scoliosis SVT, lower extremity ([facility]) 2019 ASA only no anticoagulants PAST SURGICAL [...] Date Va (more content not included)... Normal [facility] CBC W Auto Differential pane l (Bld)on 05-26-2023 Basophils (Bld) [#/Vol] 0.05 10*3/uL <0.11 k/uL [facility] Basophils/100 WBC (Bld) 0.7 % [facility] Differential cell count method Nom (Bld) Auto [facility] Eosinophils (Bld) [#/Vol] 0.14 10*3/uL <0.46 k/uL [facility] Eosinophils/100 WBC (Bld) 1.9 % [facility] Erythrocyte distribution width (RBC) [Ratio] 13.4 % 11.5 - 15.0 % [facility] Hematocrit (Bld) [Volume fraction] 44.3 % 36.0 - 46.0 % [facility] Hemoglobin (Bld) [Mass/Vol] 14.6 g/dL 11.5 - 15.5 g/dL [facility] Immature granulocytes (Bld) [#/Vol] 0.07 10*3/uL <0.10 k/uL [facility] Immature granulocytes/100 WBC (Bld) 0.9 % [facility] Lymphocytes (Bld) [#/Vol] 1.92 10*3/uL 1.00 - 4.00 k/uL [facility] Lymphocytes/100 WBC (Bld) 26.0 % [facility] MCH (RBC) [Entitic mass] 31.7 pg 26.0 - 34.0 pg [facility] MCHC (RBC) [Mass/Vol] 33.0 g/dL 30.5 - 36.0 g/dL [facility] MCV (RBC) [Entitic vol] 96.3 fL 80.0 - 100.0 fL [facility] Monocytes (Bld) [#/Vol] 0.63 10*3/uL <0.87 k/uL [facility] Monocytes/100 WBC (Bld) 8.5 % [facility] Neutrophils (Bld) [#/Vol] 4.57 10*3/uL 1.45 - 7.50 k/uL [facility] Neutrophils/100 WBC (Bld) 62.0 % [facility] Nucleated RBC (Bld) [#/Vol] <0.01 k/uL [facility] Nucleated RBC/100 WBC (Bld) [Ratio] 0.0 /100 WBC [facility] Platelet mean volume (Bld) [Entitic vol] 9.1 fL 9.0 - 12.7 fL [facility] Platelets (Bld) [#/Vol] 385 10*3/uL 150 - 400 k/uL [facility] RBC (Bld) [#/Vol] 4.60 10*6/uL 3.90 - 5.2 0 m/uL [facility] WBC (Bld) [#/Vol] 7.38 10*3/uL 3.70 - 11. 00 k/uL [facility] Basophils (Bld) [#/Vol] 0.05 10*3/uL Normal <0.11 [facility] Comment on above: Order Comment: Speci men Type: BLOOD SPECIMENOrdering Facility: [facility] Address: [address] [place] [address] Performed By: #### 5 7021-8 ####[facility] LABCLIA [id number] [place] [address] [place] Basophils/100 WBC (Bld) 0.7 % Normal [facility] Comment on above: Order Comment: Speci men Type: BLOOD SPECIMENOrdering Facility: [facility] Address: [address] [place] [address] Performed By: #### 5 7021-8 ####[facility] LABCLIA [id number] [place] [address] [place] Differential cell count method Nom (Bld) Auto Normal [facility] Comment on above: Order Comment: Speci men Type: BLOOD SPECIMENOrdering Facility: [facility] Address: [address] [place] [address] Performed By: #### 5 7021-8 ####[facility] LABCLIA [id number] [place] [address] [place] Eosinophils (Bld) [#/Vol] 0.14 10*3/uL Normal <0.46 [facility] Comment on above: Order Comment: Speci men Type: BLOOD SPECIMENOrdering Facility: [facility] Address: [address] [place] [address] Performed By: #### 5 7021-8 ####[facility] LABCLIA [id number] [address] [place] Eosinophils/100 WBC (Bld) 1.9 % Normal [facility] Comment on above: Order Comment: Speci men Type: BLOOD SPECIMENOrdering Facility: [facility] Address: [address] [place], [place] [address] Performed By: #### 5 7021-8 ####[facility] LABCLIA [id number] [place] [address] [place] Erythrocyte distribution width (RBC) [Ratio] 13.4 % Normal 11.5-15.0 [facility] Comment on above: Order Comment: Speci men Type: BLOOD SPECIMENOrdering Facility: [facility] Address: [address] Performed By: #### 5 7021-8 ####[facility] LABCLIA [id number] [address] [place] Hematocrit (Bld) [Volume fraction] 44.3 % Normal 36.0-46.0 [facility] Comment on above: Order Comment: Speci men Type: BLOOD SPECIMENOrdering Facility: [facility] Address: [address] [place], [place] [address] Performed By: #### 5 7021-8 ####[facility] LABCLIA [id number] [place] [address] [place] Hemoglobin (Bld) [Mass/Vol] 14.6 g/dL Normal 11.5-15.5 [facility] Comment on above: Order Comment: Speci men Type: BLOOD SPECIMENOrdering Facility: [facility] Address: [address] [place], [place] [address] Performed By: #### 5 7021-8 ####[facility] LABCLIA [id number] [address] [place] Immature granulocytes (Bld) [#/Vol] 0.07 10*3/uL Normal <0.10 [facility] Comment on above: Order Comment: Speci men Type: BLOOD SPECIMENOrdering Facility: [facility] Address: [address] [place], [place] [address] Performed By: #### 5 7021-8 ####[facility] LABCLIA [id number] [address] [place] Immature granulocytes/100 WBC (Bld) 0.9 % Normal [facility] Comment on above: Order Comment: Speci men Type: BLOOD SPECIMENOrdering Facility: [facility] Address: [address] [place], [place] [address] Performed By: #### 5 7021-8 ####[facility] LABCLIA [id number] [place] [address] [place] Lymphocytes (Bld) [#/Vol] 1.92 10*3/uL Normal 1.00-4.00 [facility] Comment on above: Order Comment: Speci men Type: BLOOD SPECIMENOrdering Facility: [facility] Address: [address] [place] [address] Performed By: #### 5 7021-8 ####[facility] LABIA [id number] [address] [place] Lymphocytes/100 WBC (Bld) 26.0 % Normal [facility] Comment on above: Order Comment: Speci men Type: BLOOD SPECIMENOrdering Facility: [facility] Address: [address] [place] [address] Performed By: #### 5 7021-8 ####[facility] LABIA [id number] [address] [place] MCH (RBC) [Entitic mass] 31.7 pg Normal 26.0-34.0 [facility] Comment on above: Order Comment: Speci men Type: BLOOD SPECIMENOrdering Facility: [facility] Address: [address] [place] [address] Performed By: #### 5 7021-8 ####[facility] LABIA [id number] [place] [address] [place] MCHC (RBC) [Mass/Vol] 33.0 g/dL Normal 30.5-36.0 [facility] Comment on above: Order Comment: Speci men Type: BLOOD SPECIMENOrdering Facility: [facility] Address: [address] [place], [place] [address] Performed By: #### 5 7021-8 ####[facility] LABIA [id number] [place] [address] [place] MCV (RBC) [Entitic vol] 96.3 fL Normal 80.0-100.0 [facility] Comment on above: Order Comment: Speci men Type: BLOOD SPECIMENOrdering Facility: [facility] Address: [address] Performed By: #### 5 7021-8 ####[facility] LABCLIA [id number] [place] [address] [place] Monocytes (Bld) [#/Vol] 0.63 10*3/uL Normal <0.87 [facility] Comment on above: Order Comment: Speci men Type: BLOOD SPECIMENOrdering Facility: [facility] Address: [address] [place], [place] [address] Performed By: #### 5 7021-8 ####[facility] LABCLIA [id number] [place] [address] [place] Monocytes/100 WBC (Bld) 8.5 % Normal [facility] Comment on above: Order Comment: Speci men Type: BLOOD SPECIMENOrdering Facility: [facility] Address: [address] [place], [place] [address] Performed By: #### 5 7021-8 ####[facility] LABCLIA [id number] [place] [address] [place] Neutrophils (Bld) [#/Vol] 4.57 10*3/uL Normal 1.45-7.50 [facility] Comment on above: Order Comment: Speci men Type: BLOOD SPECIMENOrdering Facility: [facility] Address: [address] Performed By: #### 5 7021-8 ####[facility] LABCLIA [id number] [place] [address] [place] Neutrophils/100 WBC (Bld) 62.0 % Normal [facility] Comment on above: Order Comment: Speci men Type: BLOOD SPECIMENOrdering Facility: [facility] Address: [address] [place], [place] [address] Performed By: #### 5 7021-8 ####[facility] LABCLIA [id number] [place] [address] [place] Nucleated RBC (Bld) [#/Vol] 10*3/uL Normal <0.01 [facility] Comment on above: Order Comment: Speci men Type: BLOOD SPECIMENOrdering Facility: [facility] Address: [address] [place] [address] Performed By: #### 5 7021-8 ####[facility] LABCLIA [id number] [place] [address] [place] Nucleated RBC/100 WBC (Bld) [Ratio] 0.0 /100 WBC Normal [facility] Comment on above: Order Comment: Speci men Type: BLOOD SPECIMENOrdering Facility: [facility] Address: [address] [place], [place] [address] Performed By: #### 5 7021-8 ####[facility] LABIA [id number] [place] [address] [place] Platelet mean volume (Bld) [Entitic vol] 9.1 fL Normal 9.0-12.7 [facility] Comment on above: Order Comment: Speci men Type: BLOOD SPECIMENOrdering Facility: [facility] Address: [address] [place] [address] Performed By: #### 5 7021-8 ####[facility] LABIA [id number] [place] [address] [place] Platelets (Bld) [#/Vol] 385 10*3/uL Normal 150-400 [facility] Comment on above: Order Comment: Speci men Type: BLOOD SPECIMENOrdering Facility: [facility] Address: [address] [place] [address] Performed By: #### 5 7021-8 ####[facility] LABCLIA [id number] [place] [address] [place] RBC (Bld) [#/Vol] 4.60 10*6/uL Normal 3.90-5.20 [facility] Comment on above: Order Comment: Speci men Type: BLOOD SPECIMENOrdering Facility: [facility] Address: [address] [place] [address] Performed By: #### 5 7021-8 ####[facility] LABCLIA [id number] [address] OF [facility] WBC (Bld) [#/Vol] 7.38 10*3/uL Normal 3.70-11.00 [facility] Comment on above: Order Comment: Speci men Type: BLOOD SPECIMENOrdering Facility: [facility] Address: [address] [place] [address] Performed By: #### 5 7021-8 ####[facility] LABCLIA [id number] [address] OF [facility] CNOVon 05-26-2023 CNOV [place] [place] HUE TITUS ([id number]) 1990 [facility] Date Time Provider Department 05/26/23 1:00 PM ASHWINI MATUTE [place] During your visit today, we recorded the following information about you: Temperature Pulse Blood pressure Weight 98.3 degrees 71/minute 122/87 64.4 kg Height 1.702 m Lorrie Vargas MA 05/26/2023 1:23 PM Signed [facility] FACTS Please visit our lab at least 3-5 days before your scheduled appointment to have your lab work drawn, if lab work is ordered. This will allow us the ability to review your lab work results with you during your scheduled visit. [facility] HOURS: Lab is open Tuesday - Tuesday from 6:30am to 5pm and open 8am -12pm on Saturdays. [facility]: Tuesday- 7:30am to 5:30pm. Fridays [...] medicine, or pediatrics at any of our [facility] locations and main campus. Ashwini Matute PA-C 05/26/2023 3:00 PM Signed This note was created using [employer]. 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 [...] disorder) Ovarian cyst PAF (paroxysmal atrial fibrillation) ([facility]) 07/2022 follows with cardiology Scoliosis SVT, lower [...] 30 tabl (more content not included)... Normal [facility] Comprehensive metabolic 2000 panelon 05-26-2023 Albumin [Mass/Vol] 4.7 g/dL Normal 3.9-4.9 [facility] Comment on above: Order Comment: Speci men Type: BLOOD SPECIMENOrdering Facility: [facility] Address: [address] Performed By: #### 2 4323-8 ####[facility] LABCLIA [id number] [place] [address] [place] ALP [Catalytic activity/Vol] 92 U/L Normal 34-123 [facility] Comment on above: Order Comment: Speci men Type: BLOOD SPECIMENOrdering Facility: [facility] Address: [address] Performed By: #### 2 4323-8 ####[facility] LABCLIA [id number] [place] [address] [place] ALT [Catalytic activity/Vol] 17 U/L Normal 7-38 [facility] Comment on above: Order Comment: Speci men Type: BLOOD SPECIMENOrdering Facility: [facility] Address: [address] [place] [address] Performed By: #### 2 4323-8 ####[facility] LABCLIA [id number] [place] [address] [place] Anion gap [Moles/Vol] 11 mmol/L Normal 9-18 [facility] Comment on above: Order Comment: Speci men Type: BLOOD SPECIMENOrdering Facility: [facility] Address: [address] [place] [phone] Performed By: #### 2 4323-8 ####[facility] LABCLIA [id number] [place] [address] [place] AST [Catalytic activity/Vol] 32 U/L Normal 13-35 [facility] Comment on above: Order Comment: Speci men Type: BLOOD SPECIMENOrdering Facility: [facility] Address: [address] Performed By: #### 2 4323-8 ####[facility] LABCLIA [id number] [place] [address] [place] Bilirubin [Mass/Vol] 0.5 mg/dL Normal 0.2-1.3 [facility] Comment on above: Order Comment: Speci men Type: BLOOD SPECIMENOrdering Facility: [facility] Address: [address] [place] [address] Performed By: #### 2 4323-8 ####[facility] LABCLIA [id number] [place] [address] [place] Calcium [Mass/Vol] 9.6 mg/dL Normal 8.5-10.2 [facility] Comment on above: Order Comment: Speci men Type: BLOOD SPECIMENOrdering Facility: [facility] Address: [address] [place] [address] Performed By: #### 2 4323-8 ####[facility] LABCLIA [id number] [place] [address] [place] Chloride [Moles/Vol] 100 mmol/L Normal 97-105 [facility] Comment on above: Order Comment: Speci men Type: BLOOD SPECIMENOrdering Facility: [facility] Address: [address] [place], [place] [address] Performed By: #### 2 4323-8 ####[facility] LABCLIA [id number] [place] [address] [place] CO2 [Moles/Vol] 28 mmol/L Normal 22-30 [facility] Comment on above: Order Comment: Speci men Type: BLOOD SPECIMENOrdering Facility: [facility] Address: [address] [place], [place] [address] Performed By: #### 2 4323-8 ####[facility] LABCLIA [id number] [place] [address] [place] Creatinine [Mass/Vol] 0.77 mg/dL Normal 0.58-0.96 [facility] Comment on above: Order Comment: Dada arenas Type: BLOOD SPECIMENOrdering Facility: [facility] Address: [address] [place] [address] Performed By: #### 2 4323-8 ####[facility] LABCLIA [id number] [place] [address] [place] Creatinine and Glomerular filtration rate.predicted panel (S/P/Bld) 105 mL/min/1.73m??? Normal >=60 [facility] Comment on above: Order Comment: Dada arenas Type: BLOOD SPECIMENOrdering Facility: [facility] Address: [address] [place] [address] Result Comment: Anabela mated Glomerular Filtration Rate [...] actual GFR. Performed By: #### 2 4323-8 ####[facility] LABCLIA [id number] [place] [address] [place] Glucose [Mass/Vol] 72 mg/dL Low 74-99 [facility] Comment on above: Order Comment: Dada arenas Type: BLOOD SPECIMENOrdering Facility: [facility] Address: [address] [place] [address] Result Comment: The [place] [employer] Association (ADA) provides guidance for cutoff [...] Standards of Medical Care in Diabetes 2016, [place] [employer]. Diabetes Care. 2016.39(Suppl 1). Performed By: #### 2 4323-8 ####[facility] LABCLIA [id number] [place] [address] [place] Potassium [Moles/Vol] 4.3 mmol/L Normal 3.7-5.1 [facility] Comment on above: Order Comment: Speci men Type: BLOOD SPECIMENOrdering Facility: [facility] Address: [address] [place] [address] Performed By: #### 2 4323-8 ####[facility] LABCLIA [id number] [place] [address] [place] Protein [Mass/Vol] 8.1 g/dL High 6.3-8.0 [facility] Comment on above: Order Comment: Speci men Type: BLOOD SPECIMENOrdering Facility: [facility] Address: [address] [address] Performed By: #### 2 4323-8 ####[facility] LABIA [id number] [place] [address] [place] Sodium [Moles/Vol] 139 mmol/L Normal 136-144 [facility] Comment on above: Order Comment: Speci men Type: BLOOD SPECIMENOrdering Facility: [facility] Address: [address] Performed By: #### 2 4323-8 ####[facility] LABCLIA [id number] [place] [address] [place] Urea nitrogen [Mass/Vol] 14 mg/dL Normal 7-21 [facility] Comment on above: Order Comment: Speci men Type: BLOOD SPECIMENOrdering Facility: [facility] Address: [address] [address] Performed By: #### 2 4323-8 ####[facility] LABCLIA [id number] [place] [address] [place] TOX SCREEN ROUT URon 05-26-2 023 Amphetamines Confirm (U) [Mass/Vol] Positive Abnormal Negative [facility] Comment on above: Order Comment: Speci men Type: URINE SPECIMENOrdering Facility: [facility] Address: [address] [place] [address] Result Comment: Cuto ff threshold at 1000 ng/mL. Performed By: #### U TOX2 ####[facility] LABCLIA [id number] [place] [address] [place] BARBITURATES, URINE Negative Normal Negative [facility] Comment on above: Order Comment: Speci men Type: URINE SPECIMENOrdering Facility: [facility] Address: [address] [place] [address] Result Comment: Cuto ff threshold at 200 ng/mL. Performed By: #### U TOX2 ####[facility] LABCLIA [id number] [place] [address] [place] BENZODIAZEPINES, UR Negative Normal Negative [facility] Comment on above: Order Comment: Speci men Type: URINE SPECIMENOrdering Facility: [facility] Address: [address] [place] [address] Result Comment: Cuto ff threshold at 200 ng/mL. Performed By: #### U TOX2 ####[facility] LABCLIA [id number] [place] [address] [place] Cannabinoids Screen Ql (U) Negative Normal Negative [facility] Comment on above: Order Comment: Speci men Type: URINE SPECIMENOrdering Facility: [facility] Address: [address] [place] [address] Result Comment: Cuto ff threshold at 50 ng/mL. Performed By: #### U TOX2 ####[facility] LABCLIA [id number] [place] [address] [place] Cocaine Ql (U) Negative Normal Negative [facility] Comment on above: Order Comment: Speci men Type: URINE SPECIMENOrdering Facility: [facility] Address: [address] [address] Result Comment: Cuto ff threshold at 300 ng/mL. Performed By: #### U TOX2 ####[facility] LABCLIA [id number] [place] [address] [place] Ethanol (U) [Mass/Vol] 84 mg/dL High <11 Cl [facility] Comment on above: Order Comment: Speci men Type: URINE SPECIMENOrdering Facility: [facility] Address: [address] [place] [address] Performed By: #### U TOX2 ####[facility] LABIA [id number] [place] [address] [place] Opiates Screen Ql (U) Positive Abnormal Negative [facility] Comment on above: Order Comment: Speci men Type: URINE SPECIMENOrdering Facility: [facility] Address: [address] [place] [address] Result Comment: Cuto ff threshold at 300 ng/mL. Performed By: #### U TOX2 ####[facility] LABIA [id number] [place] [address] [place] oxyCODONE cutoff Screen (U) [Mass/Vol] Negative Normal Negative [facility] Comment on above: Order Comment: Speci men Type: URINE SPECIMENOrdering Facility: [facility] Address: [address] [place] [address] Result Comment: Cuto ff threshold at 100 ng/mL. Performed By: #### U TOX2 ####[facility] LABIA [id number] [place] [address] [place] Phencyclidine Ql (U) Negative Normal Negative [facility] Comment on above: Order Comment: Speci men Type: URINE SPECIMENOrdering Facility: [facility] Address: [address] [place] [address] Result Comment: Cuto ff threshold at 25 ng/mL. Performed By: #### U TOX2 ####[facility] LABCLIA [id number] [address] [id number] [place] CT L-Spine Post Myelogramon 03-14-2023 CT Lumbar spine WO and W contrast IV Please click on the link to view the study images Normal [facility] [address] DO Work Phone: CT Lumbar spine WO and W contrast IV Normal [facility] Work Phone: CT Lumbar spineon 03-14-2023 Radiology Study observation (narrative) [facility] Work Phone: NR CT L-SPINE POST MYELOGRAM on 03-14-[address] L-SPINE POST MYELOGRAM Patient Name: HUE TITUS STUDY: MYELOGRAPHY, LUMBOSACRAL WITH LUMBAR PUNCTURE; CT L-SPINE [place]; 03/14/2023 12:59 pm; 03/14/2023 1:10 pm INDICATION: right lumbar radiculopathy. History of scoliosis s/p thoracolumbar fusion M54.16: Lumbar radiculopathy, right; right lumbar radiculopathy. History of scoliosis s/p thoracolumbar fusion M54.50: Lumbar pain M54.16: Lumbar radiculopathy, right. COMPARISON: Radiographs of the lumbosacral spine dated 02/10/2023. ACCESSION NUMBER(S): [id number]; [id number] ORDERING CLINICIAN: TERRIE BROWN TECHNIQUE: After discussion [...] foramina. L5-S1: Spinal canal is patent. Mild yhpz-fgfwvlr-zryd-rig ht foraminal stenosis secondary to facet hypertrophy [...] headache persists, (more content not included)... Normal [facility] NR MYELO, LUMBOSACRAL WITH L UMBAR PUNCTUREon 03-14-2023 NR MYELO, LUMBOSACRAL WITH LUMBAR PUNCTURE Patient Name: HUE TITUS STUDY: MYELOGRAPHY, LUMBOSACRAL WITH LUMBAR PUNCTURE; CT L-SPINE [place]; 03/14/2023 12:59 pm; 03/14/2023 1:10 pm INDICATION: right lumbar radiculopathy. History of scoliosis s/p thoracolumbar fusion M54.16: Lumbar radiculopathy, right; right lumbar radiculopathy. History of scoliosis s/p thoracolumbar fusion M54.50: Lumbar pain M54.16: Lumbar radiculopathy, right. COMPARISON: Radiographs of the lumbosacral spine dated 02/10/2023. ACCESSION NUMBER(S): [id number]; [id number] ORDERING CLINICIAN: TERRIE BROWN TECHNIQUE: After discussion [...] foramina. L5-S1: Spinal canal is patent. Mild lfox-ieqqfbi-zerw-rig ht foraminal stenosis secondary to facet hypertrophy [...] headache persists, (more content not included)... Normal [facility] No Panel Informationon 03-[address] [...] This study was performed and interpreted at [facility]. I agree with the procedural description and the findings as stated. [facility] Interpreted By: DINA DENNIS MD and FER GENTILE MD Patient Name: HUE TITUS STUDY: MYELOGRAPHY, LUMBOSACRAL WITH LUMBAR PUNCTURE; CT L-SPINE [place]; 03/14/2023 12:59 pm; 03/14/2023 1:10 pm INDICATION: right lumbar radiculopathy. History of scoliosis s/p thoracolumbar fusion M54.16: Lumbar radiculopathy, right; right lumbar radiculopathy. History of scoliosis s/p thoracolumbar fusion M54.50: Lumbar pain M54.16: Lumbar radiculopathy, right. COMPARISON: Radiographs of the lumbosacral spine dated 02/10/2023. ACCESSION NUMBER(S): [id number]; [id number] ORDERING CLINICIAN: TERRIE BROWN TECHNIQUE: After discussion [...] foramina. L5-S1: Spinal canal is patent. Mild eeal-pvwaxwa-ppqg-rig ht foraminal stenosis secondary to facet hypertrophy [...] Incidental: IUD visualized in the uterus. [facility] Dina Dennis MD - 03/14/2023 Interpreted By: DINA DENNIS MD and FER GENTILE MD Patient Name: HUE TITUS STUDY: MYELOGRAPHY, LUMBOSACRAL WITH LUMBAR PUNCTURE; CT L-SPINE [place]; 03/14/2023 12:59 pm; 03/14/2023 1:10 pm INDICATION: right lumbar radiculopathy. History of scoliosis s/p thoracolumbar fusion M54.16: Lumbar radiculopathy, right; right lumbar radiculopathy. History of scoliosis s/p thoracolumbar fusion M54.50: Lumbar pain M54.16: Lumbar radiculopathy, right. COMPARISON: Radiographs of the lumbosacral spine dated 02/10/2023. ACCESSION NUMBER(S): [id number]; [id number] ORDERING CLINICIAN: TERRIE BROWN TECHNIQUE: After discussion [...] foramina. L5-S1: Spinal canal is patent. Mild xtrn-gtuhslk-hhuk-rig ht foraminal stenosis secondary to facet hypertrophy [...] and along th (more content not included)... [facility] Work Phone: Please click on the link to view the study images Normal [facility] [address] DO Work Phone: Normal [facility] Work Phone: No Panel InformationOrdered By: Dina Dennis on 03-14-2023 [facility] Work Phone: RF Guidance for injection of Lumbar spineon 03-14-2023 Radiology Study observation (narrative) [facility] Work Phone: CBCon 03-12-2023 Erythrocyte distribution width (RBC) [Ratio] 13.9 % Normal 11.5 - 14.5 [facility] Comment on above: Performed By: #### C BC #### [address] [id number] Hematocrit (Bld) [Volume fraction] 39.3 % Normal 36.0 - 46.0 [facility] Comment on above: Performed By: #### C BC #### [address] [id number] Hemoglobin (Bld) [Mass/Vol] 12.8 g/dL Normal 12.0 - 16.0 [facility] Comment on above: Performed By: #### C BC #### [address] [id number] MCHC (RBC) [Mass/Vol] 32.6 g/dL Normal 32.0 - 36.0 [facility] Comment on above: Performed By: #### C BC #### [address] [id number] MCV (RBC) [Entitic vol] 96 fL Normal 80 - 100 [facility] Comment on above: Performed By: #### C BC #### [facility] [address] [place], [place] [id number] Platelets (Bld) [#/Vol] 335 10*3/uL Normal 150 - 450 [facility] Comment on above: Performed By: #### C BC #### [address] [id number] RBC 4.11 x10E12/L Normal 4.00 - 5.20 [facility] Comment on above: Performed By: #### C BC #### [address] [id number] WBC (Bld) [#/Vol] 13.6 10*3/uL High 4.4 - 11.3 [facility] Comment on above: Performed By: #### C BC #### [address] [phone] Laboratory - Coagulationon 0 03-12-2023 INR Coag (PPP) [Relative time] 1.0 {INR} 0.9 - 1.1 [facility] [place] [address] DO Work Phone: PT Coag (PPP) [Time] 11.1 s 9.8 - 12.8 [facility] [address] DO Work Phone: Comment on above: Note new reference r clay as of 02/22/2023 at 10:00am. Laboratory - Hematology and Cell countson 03-12-2023 Erythrocyte distribution width (RBC) [Ratio] 13.9 % See Below [facility] [address] DO Work Phone: Comment on above: Reference Range: 11. 5 - 14.5 Hematocrit (Bld) [Volume fraction] 39.3 % See Below [facility] [address] DO Work Phone: Comment on above: Reference Range: 36. 0 - 46.0 Hemoglobin (Bld) [Mass/Vol] 12.8 g/dL See Below [facility] [address] DO Work Phone: Comment on above: Reference Range: 12. 0 - 16.0 MCHC (RBC) [Mass/Vol] 32.6 g/dL See Below [facility] [address] DO Work Phone: Comment on above: Reference Range: 32. 0 - 36.0 MCV (RBC) [Entitic vol] 96 fL 80 - 100 [facility] [address] DO Work Phone: Platelets (Bld) [#/Vol] 335 10*3/uL 150 - 450 [facility] [address] DO Work Phone: RBC (Bld) [#/Vol] 4.11 {x10E12/L} See Below [facility] [address] DO Work Phone: Comment on above: Reference Range: 4.0 0 - 5.20 WBC (Bld) [#/Vol] 13.6 10*3/uL above high threshold 4.4 - 11.3 [facility] [address] DO Work Phone: PT/INRon 03-12-2023 PT Coag (PPP) [Time] 11.1 s Normal 9.8 - 12.8 [facility] Comment on above: Result Comment: Note new reference range as of 02/22/2023 at 10:00am. Performed By: #### P TINR #### [address] [id number] PT, INR 1.0 Normal 0.9 - 1.1 [facility] Comment on above: Performed By: #### P TINR #### [address] [id number] CNOVon 03-03-2023 CNOV Office Visit (OBGAMH ) HUE TITUS ([id number]) 1990 F T Date Time Provider Department 03/03/23 11:30 AM ARIA IZQUIERDO [facility] During your visit today, we recorded [...] 02/13/2023 (approximate). Informed Consent Consent Obtained: Written [place] Protocol A moment to CARE was completed. [...] Aria Izquierdo PA-C Referring Provider: ARIA IZQUIERDO [[id number]] Allergies As of Date: 03/03/2023 (No Known Allergies) Date Reviewed: 03/03/2023 Reviewed by: Aria Izquierdo PA-C - Fully Assessed Reason for Visit: Insertion Of IUD [291] Primary Visit Diagnosis:Encounter for IUD insertion [Z30.430] Order(s):HCG QUAL UR B/O [9128666] Order #: [id number] [] levonorgestrel 21 mcg/24 hours (8 yrs) 52 mg 1 Each intrauterine device (MIRENA)Disp: Rfl: IUD INSERTION [PRO92] Order #: [id number] Prescriptions as of 03/18/2023 - pregabalin (LYRICA) [...] Route: I (more content not included)... Normal [facility] CNOVon 02-22-2023 CNOV Office Visit (INPRJOSE ) HUE TITUS ([id number]) 1990 F [facility] Date Time Provider Department 02/22/23 2:00 PM ASHWINI MATUTE During your visit today, we recorded the following information about you: Pulse Blood pressure Weight Height 90/minute 110/79 56.2 kg 1.702 m Ashwini Matute PA-C 02/22/2023 3:32 PM Signed This note was created using Mailpileriter. Subjective Hue Titus is a 32 year [...] pain. She has started seeing a new framing specialist at . Past Medical History: PAST MEDICAL HISTORY Diagnosis Date ADHD (attention deficit hyperactivity disorder) Ovarian cyst PAF (paroxysmal atrial fibrillation) ([facility]) 07/2022 follows with cardiology Scoliosis SVT, lower extremity ([facility]) 2019 ASA only no anticoagulants Past Surgical [...] no longer seeing her previous PCP in [place]. 3. Vitamin D deficiency - ICD9: 268.9, ICD10: E55.9 Start high dose vitamin D once weekly. Rx sent in. RICHIE Velasco (more content not included)... Normal [facility] 25(OH)D3 SerPl-ncon 2022 25-hydroxyvitamin D3 [Mass/Vol] 24.8 ng/mL Low 31.0-80.0 [facility] Comment on above: Order Comment: Speci men Type: BLOOD SPECIMENOrdering Facility: [facility] Address: [address] [place] [address] Result Comment: Clas sification of 25 [place] Vitamin D status: Deficiency/Insufficiency: < or = 30 ng/ml. Sufficiency/Optimal Levels: 31-80 ng/mL Toxicity: > 100 ng/mL. Test performed by chemiluminescent immunoassay. Performed By: #### 1 989-3 ####[facility] LABCLIA [id number] [place] [address] [place] CBC W Auto Differential pane l (Bld)on 02-15-2023 Basophils (Bld) [#/Vol] 0.04 10*3/uL Normal <0.11 [facility] Comment on above: Order Comment: Speci men Type: BLOOD SPECIMENOrdering Facility: [facility] Address: [address] [place] [address] Performed By: #### 5 7021-8 ####[facility] LABCLIA [id number] [place] [address] [place] Basophils/100 WBC (Bld) 0.5 % Normal [facility] Comment on above: Order Comment: Speci men Type: BLOOD SPECIMENOrdering Facility: [facility] Address: [address] [place] [address] Performed By: #### 5 7021-8 ####[facility] LABCLIA [id number] [place] [address] [place] Differential cell count method Nom (Bld) Auto Normal [facility] Comment on above: Order Comment: Speci men Type: BLOOD SPECIMENOrdering Facility: [facility] Address: [address] Performed By: #### 5 7021-8 ####[facility] LABCLIA [id number] [place] [address] [place] Eosinophils (Bld) [#/Vol] 0.12 10*3/uL Normal <0.46 [facility] Comment on above: Order Comment: Speci men Type: BLOOD SPECIMENOrdering Facility: [facility] Address: [address] Performed By: #### 5 7021-8 ####[facility] LABCLIA [id number] [address] [place] Eosinophils/100 WBC (Bld) 1.6 % Normal [facility] Comment on above: Order Comment: Speci men Type: BLOOD SPECIMENOrdering Facility: [facility] Address: [address] [place], [place] [address] Performed By: #### 5 7021-8 ####[facility] LABCLIA [id number] [place] [address] [place] Erythrocyte distribution width (RBC) [Ratio] 13.7 % Normal 11.5-15.0 [facility] Comment on above: Order Comment: Speci men Type: BLOOD SPECIMENOrdering Facility: [facility] Address: [address] Performed By: #### 5 7021-8 ####[facility] LABIA [id number] [address] [place] Hematocrit (Bld) [Volume fraction] 38.1 % Normal 36.0-46.0 [facility] Comment on above: Order Comment: Speci men Type: BLOOD SPECIMENOrdering Facility: [facility] Address: [address] Performed By: #### 5 7021-8 ####[facility] LABCLIA [id number] [place] [address] [place] Hemoglobin (Bld) [Mass/Vol] 12.7 g/dL Normal 11.5-15.5 [facility] Comment on above: Order Comment: Speci men Type: BLOOD SPECIMENOrdering Facility: [facility] Address: [address] [place], [place] [address] Performed By: #### 5 7021-8 ####[facility] LABCLIA [id number] [place] [address] [place] Immature granulocytes (Bld) [#/Vol] 0.09 10*3/uL Normal <0.10 [facility] Comment on above: Order Comment: Speci men Type: BLOOD SPECIMENOrdering Facility: [facility] Address: [address] [place], [place] [address] Performed By: #### 5 7021-8 ####[facility] LABCLIA [id number] [place] [address] [place] Immature granulocytes/100 WBC (Bld) 1.2 % Normal [facility] Comment on above: Order Comment: Speci men Type: BLOOD SPECIMENOrdering Facility: [facility] Address: [address] [place], [place] [address] Performed By: #### 5 7021-8 ####[facility] LABCLIA [id number] [place] [address] [place] Lymphocytes (Bld) [#/Vol] 2.77 10*3/uL Normal 1.00-4.00 [facility] Comment on above: Order Comment: Speci men Type: BLOOD SPECIMENOrdering Facility: [facility] Address: [address] [place], [place] [address] Performed By: #### 5 7021-8 ####[facility] LABCLIA [id number] [place] [address] [place] [facility] Lymphocytes/100 WBC (Bld) 37.6 % Normal [facility] Comment on above: Order Comment: Speci men Type: BLOOD SPECIMENOrdering Facility: [facility] Address: [address] [place], [place] [address] Performed By: #### 5 7021-8 ####[facility] LABCLIA [id number] [address] [place] [facility] MCH (RBC) [Entitic mass] 30.2 pg Normal 26.0-34.0 [facility] Comment on above: Order Comment: Speci men Type: BLOOD SPECIMENOrdering Facility: [facility] Address: [address] [place], [place] [address] Performed By: #### 5 7021-8 ####[facility] LABCLIA [id number] [address] [place] MCHC (RBC) [Mass/Vol] 33.3 g/dL Normal 30.5-36.0 [facility] Comment on above: Order Comment: Speci men Type: BLOOD SPECIMENOrdering Facility: [facility] Address: [address] [place], [place] [address] Performed By: #### 5 7021-8 ####[facility] LABCLIA [id number] [address] [place] MCV (RBC) [Entitic vol] 90.7 fL Normal 80.0-100.0 [facility] Comment on above: Order Comment: Speci men Type: BLOOD SPECIMENOrdering Facility: [facility] Address: [address] [place], [place] [address] Performed By: #### 5 7021-8 ####[facility] LABCLIA [id number] [place] [address] [place] Monocytes (Bld) [#/Vol] 0.80 10*3/uL Normal <0.87 [facility] Comment on above: Order Comment: Speci men Type: BLOOD SPECIMENOrdering Facility: [facility] Address: [address] Performed By: #### 5 7021-8 ####[facility] LABCLIA [id number] [address] [place] Monocytes/100 WBC (Bld) 10.9 % Normal [facility] Comment on above: Order Comment: Speci men Type: BLOOD SPECIMENOrdering Facility: [facility] Address: [address] Performed By: #### 5 7021-8 ####[facility] LABCLIA [id number] [place] [address] [place] Neutrophils (Bld) [#/Vol] 3.55 10*3/uL Normal 1.45-7.50 [facility] Comment on above: Order Comment: Speci men Type: BLOOD SPECIMENOrdering Facility: [facility] Address: [address] [place], [place] [address] Performed By: #### 5 7021-8 ####[facility] LABCLIA [id number] [address] [place] Neutrophils/100 WBC (Bld) 48.2 % Normal [facility] Comment on above: Order Comment: Speci men Type: BLOOD SPECIMENOrdering Facility: [facility] Address: [address] [place], [place] [address] Performed By: #### 5 7021-8 ####[facility] LABCLIA [id number] [place] [address] [place] Nucleated RBC (Bld) [#/Vol] 10*3/uL Normal <0.01 [facility] Comment on above: Order Comment: Speci men Type: BLOOD SPECIMENOrdering Facility: [facility] Address: [address] [place], [place] [address] Performed By: #### 5 7021-8 ####[facility] LABCLIA [id number] [place] [address] [place] Nucleated RBC/100 WBC (Bld) [Ratio] 0.0 /100 WBC Normal [facility] Comment on above: Order Comment: Speci men Type: BLOOD SPECIMENOrdering Facility: [facility] Address: [address] [place] [address] Performed By: #### 5 7021-8 ####[facility] LABIA [id number] [place] [address] [place] Platelet mean volume (Bld) [Entitic vol] 9.4 fL Normal 9.0-12.7 [facility] Comment on above: Order Comment: Speci men Type: BLOOD SPECIMENOrdering Facility: [facility] Address: [address] [place] [address] Performed By: #### 5 7021-8 ####[facility] LABIA [id number] [place] [address] [place] Platelets (Bld) [#/Vol] 493 10*3/uL High 150-400 [facility] Comment on above: Order Comment: Speci men Type: BLOOD SPECIMENOrdering Facility: [facility] Address: [address] [place] [address] Performed By: #### 5 7021-8 ####[facility] LABIA [id number] [place] [address] [place] RBC (Bld) [#/Vol] 4.20 10*6/uL Normal 3.90-5.20 [facility] Comment on above: Order Comment: Speci men Type: BLOOD SPECIMENOrdering Facility: [facility] Address: [address] [place], [place] [id number] Performed By: #### 5 7021-8 ####[facility] LABIA [id number] [place] [address] [place] WBC (Bld) [#/Vol] 7.37 10*3/uL Normal 3.70-11.00 [facility] Comment on above: Order Comment: Speci men Type: BLOOD SPECIMENOrdering Facility: [facility] Address: [address] [place] [address] Performed By: #### 5 7021-8 ####[facility] LABCLIA [id number] [place] [address] [place] [facility] Comprehensive metabolic 2000 panelon 02-15-2023 Albumin [Mass/Vol] 4.4 g/dL Normal 3.9-4.9 [facility] Comment on above: Order Comment: Speci men Type: BLOOD SPECIMENOrdering Facility: [facility] Address: [address] [place] [address] Performed By: #### 3 016-3, 2132-05, ####[facility] LABIA [id number] [place] [address] [place] ALP [Catalytic activity/Vol] 89 U/L Normal 34-123 [facility] Comment on above: Order Comment: Speci men Type: BLOOD SPECIMENOrdering Facility: [facility] Address: [address] [place], [place] [id number] Performed By: #### 3 016-3, 2132-05, ####[facility] LABIA [id number] [address] [place] ALT [Catalytic activity/Vol] 13 U/L Normal 7-38 [facility] Comment on above: Order Comment: Speci men Type: BLOOD SPECIMENOrdering Facility: [facility] Address: [address] Performed By: #### 3 016-3, 2132-05, ####[facility] LABCLIA [id number] [place] [id number] [place] Anion gap [Moles/Vol] 12 mmol/L Normal 9-18 [facility] Comment on above: Order Comment: Speci men Type: BLOOD SPECIMENOrdering Facility: [facility] Address: [address] [place] [address] Performed By: #### 3 016-3, 2132-05, ####[facility] LABCLIA [id number] [place] [address] [place] AST [Catalytic activity/Vol] 24 U/L Normal 13-35 [facility] Comment on above: Order Comment: Speci men Type: BLOOD SPECIMENOrdering Facility: [facility] Address: [address] [place] [address] Performed By: #### 3 016-3, 2132-05, ####[facility] LABCLIA [id number] [place] [address] [place] Bilirubin [Mass/Vol] 0.3 mg/dL Normal 0.2-1.3 [facility] Comment on above: Order Comment: Speci men Type: BLOOD SPECIMENOrdering Facility: [facility] Address: [address] [place] [address] Performed By: #### 3 016-3, 2132-05, ####[facility] LABCLIA [id number] [place] [address] [place] Calcium [Mass/Vol] 10.5 mg/dL High 8.5-10.2 [facility] Comment on above: Order Comment: Speci men Type: BLOOD SPECIMENOrdering Facility: [facility] Address: [address] [place] [address] Performed By: #### 3 016-3, 2132-05, ####[facility] LABIA [id number] [place] [address] [place] Chloride [Moles/Vol] 102 mmol/L Normal 97-105 [facility] Comment on above: Order Comment: Speci men Type: BLOOD SPECIMENOrdering Facility: [facility] Address: [address] [place] [place] [address] Performed By: #### 3 016-3, 2132-05, ####[facility] LABCLIA [id number] [place] [address] [place] CO2 [Moles/Vol] 25 mmol/L Normal 22-30 [facility] Comment on above: Order Comment: Speci men Type: BLOOD SPECIMENOrdering Facility: [facility] Address: [address] [place] [address] Performed By: #### 3 016-3, 2132-05, ####[facility] LABIA [id number] [address] OF [facility] Creatinine [Mass/Vol] 0.77 mg/dL Normal 0.58-0.96 [facility] Comment on above: Order Comment: Speci men Type: BLOOD SPECIMENOrdering Facility: [facility] Address: [address] [place] [address] Performed By: #### 3 016-3, 2132-05, ####[facility] LABIA [id number] [address] ESTIMATED GLOMERULAR FILTRATION RATE 106 mL/min/1.73m??? Normal >=60 [facility] Comment on above: Order Comment: Speci men Type: BLOOD SPECIMENOrdering Facility: [facility] Address: [address] [place] [address] Result Comment: Anabela mated Glomerular Filtration Rate [...] GFR. Performed By: #### 3 016-3, 2132-05, ####[facility] LABCLIA [id number] [place] [address] [place] Glucose [Mass/Vol] 98 mg/dL Normal 74-99 [facility] Comment on above: Order Comment: Speci men Type: BLOOD SPECIMENOrdering Facility: [facility] Address: [address] [place] [address] Result Comment: The [place] Diabetes Association (ADA) provides guidance for cutoff [...] Standards of Medical Care in Diabetes 2016, [place] Diabetes Association. Diabetes Care. 2016.39(Suppl 1). Performed By: #### 3 016-3, 2132-05, ####[facility] LABIA [id number] [place] [address] [place] Potassium [Moles/Vol] 4.4 mmol/L Normal 3.7-5.1 [facility] Comment on above: Order Comment: Speci men Type: BLOOD SPECIMENOrdering Facility: [facility] Address: [address] [place], [place] [address] Performed By: #### 3 016-3, 2132-05, ####[facility] LABIA [id number] [place] [address] [place] Protein [Mass/Vol] 7.9 g/dL Normal 6.3-8.0 [facility] Comment on above: Order Comment: Speci men Type: BLOOD SPECIMENOrdering Facility: [facility] Address: [address] [place] [address] Performed By: #### 3 016-3, 2132-05, ####[facility] LABCLIA [id number] [place] [address] [place] Sodium [Moles/Vol] 139 mmol/L Normal 136-144 [facility] Comment on above: Order Comment: Speci men Type: BLOOD SPECIMENOrdering Facility: [facility] Address: [address] [place] [address] Performed By: #### 3 016-3, 2132-05, ####[facility] LABCLIA [id number] [place] [address] [place] Urea nitrogen [Mass/Vol] 16 mg/dL Normal 7-21 [facility] Comment on above: Order Comment: Speci men Type: BLOOD SPECIMENOrdering Facility: [facility] Address: [address] [place] [address] Performed By: #### 3 016-3, 2132-05, ####[facility] LABCLIA [id number] [place] [address] [place] [facility] 02-15-2023 TSH Qn 1.760 m[IU]/L Normal 0.270-4.200 [facility] Comment on above: Order Comment: Dada arenas Type: BLOOD SPECIMENOrdering Facility: [facility] Address: [address] [place] [address] Result Comment: If t he patient is , TSH reference range varies by gestational period: First Trimester (weeks 9-12): 0.180-2.990 mIU/L Second Trimester: 0.110-3.980 mIU/L Third Trimester: 0.480-4.710 mIU/L Pedro Lim et al. A Practical Approach for the Verifications and Determination of Site- and Trimester-Specific Reference Intervals for Thyroid Function tests in . Thyroid, 2019:29:3:412-420. Jam Pacheco, et al. 2017 Guidelines of the [place] Thyroid Association for the Diagnosis and Management of Thyroid Disease during and the . Thyroid, 2017:27:3:315-389. Performed By: #### 3 016-3, 2132-05, ####[facility] LABCLIA [id number] [address] OF [place] Vit B12 [facility] 06-13-2 023 Cobalamin (Vitamin B12) [Mass/Vol] 1090 pg/mL Normal 232-1245 [facility] Comment on above: Order Comment: Speci men Type: BLOOD SPECIMENOrdering Facility: [facility] Address: [address] [place] [id number] Performed By: #### 3 016-3, 2132-05, ####[facility] LABIA [id number] [address] Established Visit (Orthopaed ic Surgery)on 02-10-2023 Established Visit (Orthopaedic Surgery) Diagnoses/Problems Assessed Lumbar radiculopathy, right (724.4) (M54.16) Lumbar pain (724.2) (M54.50) Orders Lumbar pain, Lumbar radiculopathy, right CT L-Spine Post Myelogram; Status:Active; Requested for:[id number]; Patient taking Metformin or Derivatives? : No Radiologist to Determine Optimal Study : Y What are the patient's signs and symptoms? : right lumbar radiculopathy. History of scoliosis s/p thoracolumbar fusion Lumbar radiculopathy, right Xray Myelography Lumbosacral with LP; Status:Active; Requested for:[id number]; Radiologist to Determine Optimal Study : Y [...] Oral Tablet Vitamin D (Ergocalciferol) 1.25 MG (85762 UT) Oral Capsule Signatures Electronically signed by : Terrie Brown MD; Mar 11 2023 5:08PM EST (Author) Normal [facility] Initial Visit (Orthopaedic S urgery)on 02-10-2023 [...] with LP; Status:Hold For - Scheduling; Requested for:[id number]; Radiologist to Determine Optimal Study : Y [...] around 2018 in 2019 while living in [place] she was seeing pain management who tried caudal injections which did not help. She is also tried multiple medications such as Cymbalta and Lyrica without any relief. She was started on gabapentin which initially did provide relief of her leg pain but now she still has a lot of foot pain. She describes as a burning sensation. She then since moved back to [place] and has been seeing physicians at [facility]. Most of her care is done at [facility]. She was seeing pain management with Dr. [...] taking yet. 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 She does not smoke occasionally drinks alcohol [...] easy bruis (more content not included)... Normal [facility] No Panel Informationon 02-10 Normal [facility]-Orthopaedi [employer] Work Phone: SPINE, LUMBOSACRAL; MIN 4 EWSon 02-10-2023 SPINE, LUMBOSACRAL; MIN 4 VIEWS Patient Name: HUE TITUS STUDY: SPINE, LUMBOSACRAL MIN 4 VIEWS; 02/10/2023 1:48 pm INDICATION: LUMBAR PAIN M54.50: Lumbar pain. COMPARISON: None. ACCESSION NUMBER(S): [id number] ORDERING CLINICIAN: TERRIE BROWN FINDINGS: Lumbar spine, [...] L5-S1 Electronically signed by: JACQUELINE GLORIA MD [facility] CNOVon 02-08-2023 [facility] [place] [place] HUE TITUS ([id number]) 1990 F [facility] Date Time Provider Department 02/08/23 3:20 PM CHITRA BURNETTPRJOSE During your visit today, we recorded the [...] ordered - has not yet called [place] to schedule. She's concerned if something may [...] side [M54.9] Order(s):XR SCAPULA 2V AP/LAT RIGHT [[id number]] Order #: [id number] FUTURE XR THORACIC GENERAL 3V AP/LAT/SWIMMERS [[id number]] Order #: [id number] FUTURE Prescriptions as of 02/08/2023 - dextroamphetamine-amp [...] [I48.0] 09/27/2022 (more content not included)... Normal [facility] No Panel Informationon 02-08 [facility] XR SCAPULA 2V AP/LAT RTon XR SCAPULA [...] definite scapular fracture. IMPRESSION: Please see result. Portfolio Specialist: [facility] Transcribe Date/Time: Feb 08 2023 4:22P Dictated by : ASHLEY MIRANDA MD This examination was interpreted and the report reviewed and electronically signed by: ASHLEY MIRANDA MD on Feb 08 2023 4:23PM EST [id number] N Normal [facility] XR THORACIC 3V AP/LAT/SWIMME RSon 02-08-2023 XR [...] definite scapular fracture. IMPRESSION: Please see result. Portfolio Specialist: [facility] Transcribe Date/Time: Feb 08 2023 4:22P Dictated by : ASHLEY MIRANDA MD This examination was interpreted and the report reviewed and electronically signed by: ASHLEY MIRANDA MD on Feb 08 2023 4:23PM EST [id number] N Normal [facility] CNOVon 02-04-2023 CN[facility] Office Visit ([facility] ) HUE TITUS ([id number]) 1990 F T Date Time Provider Department [...] yet. 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 She's currently followed by Dr Dennis for pain management and Spine. She reports Dr Dennis told her there's nothing additional he can do for her so she didn't think she would need to follow up. She had a CT Myelogram ordered by [facility] Spine - but it was scheduled in [place] as a traditional CT so it was [...] the Rx since she now lives in [place] Review of Systems All other systems reviewed [...] out of state. Pt will call [place] CT scheduling to set up the CT [...] Encounter Prescripti (more content not included)... Normal [facility] CNOVon 02-03-2023 CNOV Office Visit ([facility] ) HUE TITUS ([id number]) 1990 F [facility] Date Time Provider Department 02/03/23 3:00 PM ARIA IZQUIERDO [facility] During your visit today, we [...] disorder) Ovarian cyst PAF (paroxysmal atrial fibrillation) ([facility]) 07/2022 follows with cardiology Scoliosis SVT, lower extremity ([facility]) 2018 ASA only no anticoagulants PAST SURGICAL [...] the second pill 8-10 hours prior to CAKE FORMER appt for cervical dilation. metoprolol tartrate, short [...] of this record were documented by the Anesthesiologist/Physician. I, Aria Izquierdo, have reviewed this information as documented for accuracy and performed all elements of history taking, and edited the record as necessary. ROS: SEE HPI PE: GENERAL: well-appearing, in no acute distress LUNGS: Normal inspiratory effort CAKE FORMER: deferred NEURO: Awake, alert and oriented A/P: [...] the date of the service which included uojj-[id number] patient care, completing clinical documentation, counseling and educating the patient/family/caregi hussain, and ordering medications, tests, or procedures. Referring Provider: ASHWINI MATUTE [[id number]] Allergies As of Date: 02/03/2023 (No Known Allergies) Date Reviewed: 02/03/2023 Reviewed by: Aria Izquierdo PA-C - Fully Assessed Reason for Visit: Well Woman [1463] Visit Diagnosis:Counseling for control regarding intrauterine device (IUD) [Z30.09] Order(s):CONSULT TO WOODEN FENCE ERECTOR [9021] Order #: [id number]: 1 miSOPROStol (CYTOTEC) 200 mcg tablet1 tablet as directed. Take by mouth 2 days prior to appt, and the second pill 8-10 hours prior to CAKE FORMER appt for cervical dilation.Disp: 2 tabletRfl: 0 INSERT INTRAUTERINE DEVICE [[id number]] Order #: [id number] Prescriptions as of 02/03/2023 - miSOPROStol (CYTOTEC) 200 mcg tablet 1 tablet as directed. Take by mouth 2 days prior to appt, and the second pill 8-10 hours prior to CAKE FORMER appt for cervical dilation. - dextroamphetamine-amp hetamine [...] mouth twice daily. Facility-Administered Medications as of more content not included)... Normal [facility] CNOVon 01-11-2023 CNOV Office Visit ([facility] ) HUE TITUS ([id number]) 1990 F T Date Time Provider Department 01/11/23 2:00 PM ASHWINI MATUTE During your visit today, we recorded the following information about you: Pulse Blood pressure Weight Height 63/minute 124/80 54 kg 1.702 m Last Period 12/12/22 Ashwini Matute PA-C 01/13/2023 2:09 PM Signed This note was created using [employer]. Subjective Hue Titus is a 32 year old female. HPI Hue Titus is a 32 year old female who presents today to [facility] care as a new patient. She has a history of juvenile scoliosis and is currently being treated by both framing specialist and pain management. She is on both gabapentin and lyrica for her chronic back pain and recently failed an attempted spinal cord stimulator procedure. She is awaiting additional CT imaging to determine next course of treatment. 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 She recently moved back to the area after living in [place] for over 5 yrs. She complains of [...] (attention deficit hyperactivity disorder) DVT, lower extremity ([facility]) 2018 PAF (paroxysmal atrial fibrillation) ([facility]) 07/2022 follows with cardiology Scoliosis Past Surgical [...] Gastrointestinal: Nega (more content not included)... Normal [facility] 01-11-2023 [facility]UE [facility] ([id number]) 1990 F [facility] Date Time Provider Department 01/11/23 YUE DAHL [facility] During your visit today, we recorded the following information about you: SALUD Reeves 01/11/2023 3:27 PM Signed Behavioral Health Social Work Progress Note Patient identified for [facility] from: PCP Reason for referral: [facility] Behavioral Health Resources: Psychology - talk therapy [facility] encounter type: Telephone Encounter, MyChart Message Attempts to Outreach: 1 attempt Referral made: Psychology - External Psychology-External referral type: Therapy Reason for external referral: Patient seeking longterm support Final Disposition: Resources given Patient Discharged?: Yes Patient reported that caregiver was able to meet their needs today?: Yes [facility] consult received for anxiety and depression. [facility] placed telephone call at the request of the PCP to discuss behavioral health needs and provide referrals for outpatient support. Patient states she is looking to establish with a therapy provider. Would like telephone number to schedule within [facility] and externally. Will send the following: [facility] Psychiatry and Counseling Central Scheduling Call Center [phone] [facility] ([place]) [phone] [facility] ([place]) Counseling only [phone] [facility] ([place]) Counseling only [phone] [facility] ([place]) Counseling only [phone] [facility] ([place]) [phone] Extension: [phone] Flaco Scott, [facility] ([place]) Counseling only [phone] [facility] [place] ([place]) Counseling only [phone] [facility] ([place]) Counseling only [phone] [facility] ([place]) [phone] [facility] ([place]) [phone] [facility] ([place]) Counseling only [phone] [facility] [place] ([place]) Counseling only [phone] [facility] ([place]) Counseling only [phone] [facility] ([place]/[facility]) [phone] [facility] ([place]) Counseling only [phone] [facility] [place] ([place]) Counseling only [phone] [facility] ([place]) Counseling only [facility] [phone] [facility] ([place]) Counseling only [phone] [facility] ([place]) Counseling only [phone] [facility] ([place]) Counseling only [phone] [facility] ([place]) Counseling only [phone] SALUD Reeves, VIPUL- January 11, 2023 Allergies As of Date: 01/11/2023 (No Known Allergies) Date Reviewed: 01/11/2023 Reviewed by: Josh Han - Fully Assessed Reason for Visit: Behavioral Health/Social Work [7126] Prescriptions as of 01/11/2023 - dextroamphetamine-amp hetamine [...] Encounter Status:Closed by YUE DAHL on 01/11/23 [facility] CNCOon 01-07-2023 CNCO Letter Text [facility] CNPNon 12-31-2022 CNPN Telephone ([facility]) HUE TITUS ([id number]) 1990 F T Date Time Provider Department 12/31/22 MARCO SLADE [facility] During your visit today, we recorded [...] information and she verbalized understanding. Tatum Santos [facility] 01/07/2023 8:51 AM Signed Hi. The order for Ct Myelogram thoracic is in [facility] [place] but it is not dropping so the scan can be scheduled. Maybe (looks like) in the priority and order details Priority is routine but Class looks to be the reason its not dropping. Today appt has been cancelled as she is scheduled incorrectly. Also this Ct scan can not be scheduled at [place]. Thank you Scheduling line [phone] Marco Slade DO 01/07/2023 12:25 PM Signed Addended by: MARCO SLADE on: 01/07/2023 12:25 PM Modules accepted: Lisa Jj RN 01/07/2023 3:41 PM Addendum Spoke to Ivanna in [place] she said everything looks good as far as order for CT Myelogram she is going to send a message to one of her leads to have them call patient to schedule. Inna Carnes [facility] 01/07/2023 3:54 PM Signed Rec'd call from [...] Left message on voicemail for nurses at for CT Myelogram to call me back. [...] to call office back or can read AVdirect message. Allergies As of Date: 12/31/2022 (No Known Allergies) Date Reviewed: 12/22/2022 Reviewed by: Leola Jansen MA - Fully Assessed Reason for Visit: Scans [867] Primary Visit Diagnosis:Chronic bilateral low back pain with right-sided sciatica [M54.41, G89.29] Other Visit Diagnoses:Juvenile idiopathic scoliosis of thoracolumbar region [M41.115] Arthrodesis status [Z98.1] Order(s):CT MYELOGRAM THORACIC [[id number]] Order #: [id number] IR XR INJ MYELOGRAM [[id number]] Order #: [id number] CT MYELOGRAM LUMBAR [[id number]] Order #: [id number] IR XR INJ MYELOGRAM [[id number]] Order #: [id number] Prescriptions as of 01/18/2023 - dextroamphetamine-amp hetamine [...] mL (BD (more content not included)... Normal [facility] Renal function 2000 panelon 12-23-2022 Albumin [Mass/Vol] 4.4 g/dL 3.9 - 4.9 g/dL [facility] Anion gap [Moles/Vol] 9 mmol/L 9 - 18 mmol/L [facility] Calcium [Mass/Vol] 9.4 mg/dL 8.5 - 10. 2 mg/dL [facility] Chloride [Moles/Vol] 102 mmol/L 97 - 10 5 mmol/L [facility] CO2 [Moles/Vol] 28 mmol/L 22 - 30 mmol/L [facility] Creatinine [Mass/Vol] 0.72 mg/dL 0.58 - 0.96 mg/dL [facility] Estimated Glomerular Filtration Rate 115 mL/min/1.73m >=60 mL/min/1.73m [facility] Glucose [Mass/Vol] 82 mg/dL 74 - 99 mg/dL [facility] Phosphate [Mass/Vol] 3.1 mg/dL 2.7 - 4 .8 mg/dL [facility] Potassium [Moles/Vol] 4.4 mmol/L 3.7 - 5.1 mmol/L [facility] Sodium [Moles/Vol] 139 mmol/L 136 - 144 mmol/L [facility] Urea nitrogen [Mass/Vol] 13 mg/dL 7 - 21 mg/dL [facility] CNOVon 12-22-2022 CNOV Office Visit ([facility] ) HUE TITUS ([id number]) 1990 [facility] Date Time Provider Department 12/22/22 8:00 AM MARCO SLADE During your visit today, we recorded the following information about you: Pulse Respiration Blood pressure Weight 67/minute 16/minute 129/87 50.8 kg Height 1.715 m Marco Slade DO 12/26/2022 9:50 PM Signed [facility] Neurological [facility] [...] now seeking neurosurgical evaluation for SCS at [facility]. Denies bowel/bladder incontinence or saddle anesthesia. [...] surgery: -05/16/06 Dr. 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 Manan Garcia at [facility]: T2 to L2 PSF for scoliosis Previously treated by: -Pain Management Dr. Jolly Dennis. -Pain Management Dr. Miguel Angel Pinedo, [facility] in [place] -NSGY Dr. Raymond Sheikh, Neurological Services [facility] in [place] - Rx PT on 02/2022 -Ortho Spine Surgery Dr. Rico Mustafa, [facility] in [place] -NSGY Dr. Shawn Hardin 07/24/21 - no signs of radiculopathy on imaging/EMG, did not recommend surgery; rec SNRB vs SCS. -NSGY Dr. Miguel Angel Allison at [facility] 2005. -NSGY Dr. Manan Garcia at [facility] 2004 PMH: PAF - previously on [...] Illicit drugs: no Personal life: Moved to [place] in 2014 then back to [place] from [place] in 2021. 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 Normal [facility] No Panel Informationon 12-22 [facility] Renal function 2000 panelon 12-22-2022 Albumin [Mass/Vol] 4.4 g/dL Normal 3.9-4.9 [facility] Comment on above: Order Comment: Speci men Type: BLOOD SPECIMENOrdering Facility: [facility] Address: [address] [place] [address] Performed By: #### 2 4362-6 ####[facility] LABCLIA [id number] [place] [address] [place] Anion gap [Moles/Vol] 9 mmol/L Normal 9-18 [facility] Comment on above: Order Comment: Speci men Type: BLOOD SPECIMENOrdering Facility: [facility] Address: [address] [place] [address] Performed By: #### 2 4362-6 ####[facility] LABCLIA [id number] [place] [address] [place] Calcium [Mass/Vol] 9.4 mg/dL Normal 8.5-10.2 [facility] Comment on above: Order Comment: Speci men Type: BLOOD SPECIMENOrdering Facility: [facility] Address: [address] Performed By: #### 2 4362-6 ####[facility] LABCLIA [id number] [place] [address] [place] Chloride [Moles/Vol] 102 mmol/L Normal 97-105 [facility] Comment on above: Order Comment: Speci men Type: BLOOD SPECIMENOrdering Facility: [facility] Address: [address] Performed By: #### 2 4362-6 ####[facility] LABCLIA [id number] [place] [address] [place] CO2 [Moles/Vol] 28 mmol/L Normal 22-30 [facility] Comment on above: Order Comment: Speci men Type: BLOOD SPECIMENOrdering Facility: [facility] Address: [address] Performed By: #### 2 4362-6 ####[facility] LABCLIA [id number] [place] [address] [place] Creatinine [Mass/Vol] 0.72 mg/dL Normal 0.58-0.96 [facility] Comment on above: Order Comment: Speci men Type: BLOOD SPECIMENOrdering Facility: [facility] Address: [address] Performed By: #### 2 4362-6 ####[facility] LABCLIA [id number] [id number], [place] [address] [place] ESTIMATED GLOMERULAR FILTRATION RATE 115 mL/min/1.73m??? Normal >=60 [facility] Comment on above: Order Comment: Dada arenas Type: BLOOD SPECIMENOrdering Facility: [facility] Address: [address] [place] [address] Result Comment: Anabela mated Glomerular Filtration Rate [...] actual GFR. Performed By: #### 2 4362-6 ####[facility] LABIA [id number] [place] [address] [place] Glucose [Mass/Vol] 82 mg/dL Normal 74-99 [facility] Comment on above: Order Comment: Dada arenas Type: BLOOD SPECIMENOrdering Facility: [facility] Address: [address] [place] [address] Result Comment: The [place] Diabetes Association (ADA) provides guidance for cutoff [...] Standards of Medical Care in Diabetes 2016, [place] [employer]. Diabetes Care. 2016.39(Suppl 1). Performed By: #### 2 4362-6 ####[facility] LABIA [id number] [place] [id number] [place] Phosphate [Mass/Vol] 3.1 mg/dL Normal 2.7-4.8 [facility] Comment on above: Order Comment: Speci men Type: BLOOD SPECIMENOrdering Facility: [facility] Address: [address] Performed By: #### 2 4362-6 ####[facility] LABIA [id number] [place] [address] [place] Potassium [Moles/Vol] 4.4 mmol/L Normal 3.7-5.1 [facility] Comment on above: Order Comment: Speci men Type: BLOOD SPECIMENOrdering Facility: [facility] Address: [address] Performed By: #### 2 4362-6 ####[facility] LABIA [id number] [place] [address] [place] Sodium [Moles/Vol] 139 mmol/L Normal 136-144 [facility] Comment on above: Order Comment: Speci men Type: BLOOD SPECIMENOrdering Facility: [facility] Address: [address] Performed By: #### 2 4362-6 ####[facility] LABIA [id number] [place] [address] [place] Urea nitrogen [Mass/Vol] 13 mg/dL Normal 7-21 [facility] Comment on above: Order Comment: Speci men Type: BLOOD SPECIMENOrdering Facility: [facility] Address: [address] Performed By: #### 2 4362-6 ####[facility] LABIA [id number] [place] [address] [place] CBC W Auto Differential pane l (Bld)on 07-24-2022 Basophils (Bld) [#/Vol] 0.04 10*3/uL Normal <0.11 [facility] Comment on above: Order Comment: Speci men Type: BLOOD SPECIMEN [facility] Address: [address] [place], [place] [address] Performed By: #### 5 7021-8 #### [facility] [place] [id number] [address] [place] [address] [place] Basophils/100 WBC (Bld) 0.5 % Normal [facility] Comment on above: Order Comment: Speci men Type: BLOOD SPECIMEN [facility] Address: [address] [place] [address] Performed By: #### 5 7021-8 #### [facility] IA [id number] [address] [place] [address] [place] Differential cell count method Nom (Bld) Auto Normal [facility] Comment on above: Order Comment: Speci men Type: BLOOD SPECIMEN [facility] Address: [address] [place] [address] Performed By: #### 5 7021-8 #### [facility] IA [id number] [place] [address] [place] Eosinophils (Bld) [#/Vol] 0.14 10*3/uL Normal <0.46 [facility] Comment on above: Order Comment: Speci men Type: BLOOD SPECIMEN [facility] Address: [address] [place] [address] Performed By: #### 5 7021-8 #### [facility] IA [id number] [address] [place] Eosinophils/100 WBC (Bld) 1.8 % Normal [facility] Comment on above: Order Comment: Speci men Type: BLOOD SPECIMEN [facility] Address: [address] [place] [address] Performed By: #### 5 7021-8 #### [facility] [place] [id number] [address] [place] [address] [place] Erythrocyte distribution width (RBC) [Ratio] 12.9 % Normal 11.5-15.0 [facility] Comment on above: Order Comment: Speci men Type: BLOOD SPECIMEN [facility] Address: [address] [place] [address] Performed By: #### 5 7021-8 #### [facility] IA [id number] [address] [place] [address] [place] Hematocrit (Bld) [Volume fraction] 38.8 % Normal 36.0-46.0 [facility] Comment on above: Order Comment: Speci men Type: BLOOD SPECIMEN [facility] Address: [address] [place] [address] Performed By: #### 5 7021-8 #### [facility] IA [id number] [address] [place] [address] [place] Hemoglobin (Bld) [Mass/Vol] 13.0 g/dL Normal 11.5-15.5 [facility] Comment on above: Order Comment: Speci men Type: BLOOD SPECIMEN [facility] Address: [address] [place] [address] Performed By: #### 5 7021-8 #### [facility] IA [id number] [address] [place] [address] [place] Immature granulocytes (Bld) [#/Vol] 10*3/uL Normal <0.10 [facility] Comment on above: Order Comment: Speci men Type: BLOOD SPECIMEN [facility] Address: [address] [place] [address] Performed By: #### 5 7021-8 #### [facility] IA [id number] [address] [place] [address] [place] Immature granulocytes/100 WBC (Bld) 0.3 % Normal [facility] Comment on above: Order Comment: Speci men Type: BLOOD SPECIMEN [facility] Address: [address] [place], [place] [address] Performed By: #### 5 7021-8 #### [facility] IA [id number] [place] [address] [place] Lymphocytes (Bld) [#/Vol] 3.16 10*3/uL Normal 1.00-4.00 [facility] Comment on above: Order Comment: Speci men Type: BLOOD SPECIMEN [facility] Address: [address] [place] [address] Performed By: #### 5 7021-8 #### [facility] IA [id number] [address] STATES OF [facility] Lymphocytes/100 WBC (Bld) 41.5 % Normal [facility] Comment on above: Order Comment: Speci men Type: BLOOD SPECIMEN [facility] Address: [address] Performed By: #### 5 7021-8 #### [facility] IA [id number] [address] [place] [address] [place] MCH (RBC) [Entitic mass] 30.0 pg Normal 26.0-34.0 [facility] Comment on above: Order Comment: Speci men Type: BLOOD SPECIMEN [facility] Address: [address] [place] [address] Performed By: #### 5 7021-8 #### [facility] IA [id number] [place] [address] OF [facility] MCHC (RBC) [Mass/Vol] 33.5 g/dL Normal 30.5-36.0 [facility] Comment on above: Order Comment: Speci men Type: BLOOD SPECIMEN [facility] Address: [address] Performed By: #### 5 7021-8 #### [facility] IA [id number] [address] [place] MCV (RBC) [Entitic vol] 89.6 fL Normal 80.0-100.0 [facility] Comment on above: Order Comment: Speci men Type: BLOOD SPECIMEN [facility] Address: [address] Performed By: #### 5 7021-8 #### [facility] IA [id number] [address] [place] [address] [place] Monocytes (Bld) [#/Vol] 0.88 10*3/uL High <0.87 [facility] Comment on above: Order Comment: Speci men Type: BLOOD SPECIMEN [facility] Address: [address] [place] [address] Performed By: #### 5 7021-8 #### [facility] CLIA [id number] [address] [place] [address] [place] Monocytes/100 WBC (Bld) 11.6 % Normal [facility] Comment on above: Order Comment: Speci men Type: BLOOD SPECIMEN [facility] Address: [address] [place] [address] Performed By: #### 5 7021-8 #### [facility] CLIA [id number] [place] [address] [place] Neutrophils (Bld) [#/Vol] 3.37 10*3/uL Normal 1.45-7.50 [facility] Comment on above: Order Comment: Speci men Type: BLOOD SPECIMEN [facility] Address: [address] [place] [address] Performed By: #### 5 7021-8 #### [facility] IA [id number] [address] [place] Neutrophils/100 WBC (Bld) 44.3 % Normal [facility] Comment on above: Order Comment: Speci men Type: BLOOD SPECIMEN [facility] Address: [address] [place] [address] Performed By: #### 5 7021-8 #### [facility] CLIA [id number] [address] [place] [address] [place] Nucleated RBC (Bld) [#/Vol] 10*3/uL Normal <0.01 [facility] Comment on above: Order Comment: Speci men Type: BLOOD SPECIMEN [facility] Address: [address] [place] [address] Performed By: #### 5 7021-8 #### [facility] IA [id number] [address] [place] [address] [place] Nucleated RBC/100 WBC (Bld) [Ratio] 0.0 /100 WBC Normal [facility] Comment on above: Order Comment: Speci men Type: BLOOD SPECIMEN [facility] Address: [address] [place] [address] Performed By: #### 5 7021-8 #### [facility] IA [id number] [address] [place] [address] [place] Platelet mean volume (Bld) [Entitic vol] 9.0 fL Normal 9.0-12.7 [facility] Comment on above: Order Comment: Speci men Type: BLOOD SPECIMEN [facility] Address: [address] [place] [address] Performed By: #### 5 7021-8 #### [facility] IA [id number] [address] [place] [address] [place] Platelets (Bld) [#/Vol] 347 10*3/uL Normal 150-400 [facility] Comment on above: Order Comment: Speci men Type: BLOOD SPECIMEN [facility] Address: [address] [place] [address] Performed By: #### 5 7021-8 #### [facility] IA [id number] [address] [place] [address] [place] RBC (Bld) [#/Vol] 4.33 10*6/uL Normal 3.90-5.20 [facility] Comment on above: Order Comment: Speci men Type: BLOOD SPECIMEN [facility] Address: [address] [place] [address] Performed By: #### 5 7021-8 #### [facility] IA [id number] [address] [place] [address] [place] WBC (Bld) [#/Vol] 7.61 10*3/uL Normal 3.70-11.00 [facility] Comment on above: Order Comment: Speci men Type: BLOOD SPECIMEN [facility] Address: [address] [place] [address] Performed By: #### 5 7021-8 #### [facility] CLIA [id number] [address] [place] [address] [place] Comprehensive metabolic 2000 panelon 07-24-2022 Albumin [Mass/Vol] 4.2 g/dL Normal 3.9-4.9 [facility] Comment on above: Order Comment: Speci men Type: BLOOD SPECIMENOrdering Facility: [facility] Address: [address] [place] [address] Performed By: #### 3 040-3, 14144-5, 95265-1, 6-3 ####[facility]ORYCLIA [id number] [place] [address] [place] ALP [Catalytic activity/Vol] 49 U/L Normal 34-123 [facility] Comment on above: Order Comment: Speci men Type: BLOOD SPECIMENOrdering Facility: [facility] Address: [address] [place] [address] Performed By: #### 3 040-3, 91772-6, 38697-0, 3016-3 ####[facility]ORY[facility]IA [id number] [place] [address] [place] ALT [Catalytic activity/Vol] 11 U/L Normal 7-38 [facility] Comment on above: Order Comment: Speci men Type: BLOOD SPECIMENOrdering Facility: [facility] Address: [address] Performed By: #### 3 040-3, 27761-3, 08045-9, 3016-3 ####[facility]ORYCLIA [id number] [place] [address] [place] Anion gap [Moles/Vol] 7 mmol/L Low 9-18 [facility] Comment on above: Order Comment: Speci men Type: BLOOD SPECIMENOrdering Facility: [facility] Address: [address] [place] [address] Performed By: #### 3 040-3, 13799-9, 23839-9, 6-3 ####[facility]ORYCLIA [id number] [place] [address] [place] AST [Catalytic activity/Vol] 14 U/L Normal 13-35 [facility] Comment on above: Order Comment: Speci men Type: BLOOD SPECIMENOrdering Facility: [facility] Address: [address] Performed By: #### 3 040-3, 02219-6, 91628-7, 6-3 ####[facility]ORY[facility]IA [id number] [place] [address] [place] Bilirubin [Mass/Vol] 0.3 mg/dL Normal 0.2-1.3 [facility] Comment on above: Order Comment: Speci men Type: BLOOD SPECIMENOrdering Facility: [facility] Address: [address] Performed By: #### 3 040-3, 45610-2, 30702-7, 6-3 ####[facility] [id number] [place] [address] [place] Calcium [Mass/Vol] 9.3 mg/dL Normal 8.5-10.2 [facility] Comment on above: Order Comment: Speci men Type: BLOOD SPECIMENOrdering Facility: [facility] Address: [address] [place] [address] Performed By: #### 3 040-3, 72210-7, 75059-5, 6-3 ####[facility]ORY[facility] [id number] [place] [address] [place] Chloride [Moles/Vol] 103 mmol/L Normal 97-105 [facility] Comment on above: Order Comment: Speci men Type: BLOOD SPECIMENOrdering Facility: [facility] Address: [address] Performed By: #### 3 040-3, 62264-3, 11402-7, 3016-3 ####[facility]ORYCL[facility] [id number] [place] [address] [place] CO2 [Moles/Vol] 29 mmol/L Normal 22-30 [facility] Comment on above: Order Comment: Speci men Type: BLOOD SPECIMENOrdering Facility: [facility] Address: [address] [place] [address] Performed By: #### 3 040-3, , , 3015-11 ####[facility]ORYCLIA [id number] [place] [address] [place] Creatinine [Mass/Vol] 0.84 mg/dL Normal 0.58-0.96 [facility] Comment on above: Order Comment: Speci men Type: BLOOD SPECIMENOrdering Facility: [facility] Address: [address] [place] [address] Performed By: #### 3 040-3, , , 3015-11 ####[facility] [id number] [place] [address] [place] ESTIMATED GLOMERULAR FILTRATION RATE 95 mL/min/1.73m??? Normal >=60 [facility] Comment on above: Order Comment: Speci men Type: BLOOD SPECIMENOrdering Facility: [facility] Address: [address] [place] [address] Result Comment: Anabela mated Glomerular Filtration Rate [...] actual GFR. Performed By: #### 3 040-3, 44989-4, 38455-8, 3015-3 ####[facility]ORYIA [id number] [facility] [place] [address] [place] Glucose [Mass/Vol] 55 mg/dL Low 74-99 [facility] Comment on above: Order Comment: Speci men Type: BLOOD SPECIMENOrdering Facility: [facility] Address: [address] [place] [address] Result Comment: The [place] Diabetes Association (ADA) provides guidance for cutoff [...] Standards of Medical Care in Diabetes 2016, [place] [employer]. Diabetes Care. 2016.39(Suppl 1). Performed By: #### 3 040-3, 21315-4, 46955-7, 6-3 ####[facility] [id number] [place] [address] [place] Potassium [Moles/Vol] 3.6 mmol/L Low 3.7-5.1 [facility] Comment on above: Order Comment: Dada arenas Type: BLOOD SPECIMENOrdering Facility: [facility] Address: [address] [place] [address] Performed By: #### 3 040-3, 29355-6, 29115-6, 3016-3 ####[facility] [id number] [place] [address] [place] Protein [Mass/Vol] 6.9 g/dL Normal 6.3-8.0 [facility] Comment on above: Order Comment: Leticiai men Type: BLOOD SPECIMENOrdering Facility: [facility] Address: [address] [place] [address] Performed By: #### 3 040-3, 41380-0, 05582-2, 3016-3 ####[facility] [id number] [place] [address] [place] Sodium [Moles/Vol] 139 mmol/L Normal 136-144 [facility] Comment on above: Order Comment: Speci men Type: BLOOD SPECIMENOrdering Facility: [facility] Address: [address] [place] [address] Performed By: #### 3 040-3, 78516-8, 65444-3, 3016-3 ####[facility]ORYCL[facility] [id number] [place] [address] [facility] Urea nitrogen [Mass/Vol] 13 mg/dL Normal 7-21 [facility] Comment on above: Order Comment: Speci men Type: BLOOD SPECIMENOrdering Facility: [facility] Address: [address] [place] [address] Performed By: #### 3 040-3, 37495-0, 26906-0, 3016-3 ####[facility] [id number] [address] OF [facility] D dimer FEU PPP-mCncon 07-24 Fibrin D-dimer FEU (PPP) [Mass/Vol] <190 Normal <500 [facility] Comment on above: Order Comment: Leticiai men Type: BLOOD SPECIMEN [facility] Address: [address] [place] [address] Performed By: #### 4 8065-7 #### [facility] CLIA [id number] [place] [id number] [place] ECG COMPLETEon 07-24-2022 ECG COMPLETE Ventricular Rate : 8 8 BPM Atrial Rate : 197 BPM QRS Duration : 100 ms Q-T Interval : 367 ms QTC Calculation(Bazett) : 444 ms Calculated R Suther[place] : 81 degrees Calculated T [place]uther[place] : 81 degrees Atrial fibrillation RSR' in V1 or V2, probably normal variant Nonspecific T abnrm, anterolateral leads Abnormal ECG 401 no stemi Confirmed by BEN DIAZ MD ([id number]), index editor Beatriz Ferguson ([id number]) on 07/24/2022 2:29:25 PM NAME : HUE AGUILAR PID : [id number] : 1990 Gender : Female Race : Unknown ORD : [id number] Procedure Date : Jul 24 2022 04:01:09 Edit Date : Jul 24 2022 14:29:26 Diagnosis: Atrial fibrillation RSR' in V1 or V2, probably normal variant Nonspecific T abnrm, anterolateral leads Abnormal ECG 401 no stemi Confirmed by BEN DIAZ MD ([id number]), index editor Beatriz Ferguson ([id number]) on 07/24/2022 2:29:25 PM Test Reason : Chest Pain Location : 302 : ED AVED-14 Overread By : BEN DIAZ MD Edited By : Beatriz Ferguson Referred By : , Acquired by : [id number], [facility] ED NOTEon 07-24-2022 ED NOTE HNO ID: [id number] Author: Brittni Fierro RN Service: ? Author Type: Registered Nurse Type: ED Notes Filed: 07/24/2022 5:12 AM Note Text: Pt given instructions on discharge, medication, and follow-up. Pt educated on when to return to the ED with worsening of symptoms. Pt verbalized understanding with no further questions. Saline lock D/C. Pt ambulated with a steady gait at discharge. Pt discharged home with family. [facility] ED NOTE HNO ID: [id number] Author: Kelli Michel RN Service: ? Author Type: Registered Nurse Type: ED Notes Filed: 07/24/2022 2:58 AM Note Text: Ambulatory to bathroom with steady gait. Attempting urine collection. [facility] ED NOTE HNO ID: [id number] Author: Marjorie Lopez RN Service: ? Author Type: Registered Nurse Type: ED Notes Filed: 07/24/2022 2:36 AM Note Text: See downtime forms. [facility] ED NOTE HNO ID: [id number] Author: Kelli Michel RN Service: ? Author Type: Registered Nurse Type: ED Notes Filed: 07/23/2022 11:14 PM Note Text: Xray at bedside. [facility] ED NOTE HNO ID: [id number] Author: Garry Haro RN Service: Nursing Author Type: Registered Nurse Type: ED Notes Filed: 07/23/2022 10:50 PM Note Text: Pt states palpitations today Plan of care -Monitor Patient's Vital Signs -Monitor pain -Maintain patient safety and privacy -Provide comfort measures as needed -Call light in place -Siderails up, bed in locked and low position. Normal [facility] ED PROV NOTEon 07-24-2022 ED PROV NOTE HNO ID: [id number] Author: Ben Diaz DO Service: Emergency Medicine [...] following components: Result Value Ref Range Abs [place]atch 0.88 (*) <0.87 k/uL All other components [...] years wi (more content not included)... Normal [facility] EKGon 07-24-2022 Electrocardiogram Ventricular Rate : 130 BPM Atrial Rate : 138 BPM QRS Duration : 78 ms Q-T Interval : 300 ms QTC Calculation(Bazett) : 441 ms Calculated R Sutherlin : 77 degrees Calculated T Sutherlin : 62 degrees Atrial fibrillation with rapid ventricular response Nonspecific T wave abnormality Abnormal ECG 2257 Atrial fibrillation with rapid ventricular response no stemi Confirmed by MD MILLER CHRISTOPHER ([id number]), index editor Beatriz Ferguson ([id number]) on 07/24/2022 2:26:58 PM NAME : HUE AGUILAR PID : [id number] : 1990 Gender : Female Race : Unknown ORD : Procedure Date : Jul 23 2022 22:56:02 Edit Date : Jul 24 2022 14:27:01 Diagnosis: Atrial fibrillation with rapid ventricular response Nonspecific T wave abnormality Abnormal ECG 2257 Atrial fibrillation with rapid ventricular response no stemi Confirmed by MD MILLER CHRISTOPHER ([id number]), index editor Beatriz Ferguson ([id number]) on 07/24/2022 2:26:58 PM Test Reason : Location : 302 : ED ED Overread By : MD MILLER CHRISTOPHER Edited By : Beatriz Ferguson Referred By : , Acquired by : , Normal [facility] HIGH SENSITIVITY TROPONIN T (INITIAL)on 07-24-2022 HIGH SENSITIVITY MELINDA 8 ng/L Normal <12 [facility] Comment on above: Order Comment: Speci men Type: BLOOD SPECIMENOrdering Facility: [facility] Address: [address] [place] [id number] Result Comment: When assessing risk for acute [...] 30 day MACE. Performed By: #### L [id number] ####[facility] LABORATORYCLIA [id number] [facility] [place] [address] [place] HIGH SENSITIVITY TROPONIN T (SECOND)on 07-24-2022 HIGH SENSITIVITY MELINDA 8 ng/L Normal <12 [facility] Comment on above: Order Comment: Dada arenas Type: BLOOD SPECIMENOrdering Facility: [facility] Address: [address] [place] [address] Result Comment: When assessing risk for acute [...] 30 day MACE. Performed By: #### L [id number] ####[facility] LABORATORYCLIA [id number] [facility] [place] [address] [place] Lipase SerPl-cCncon 07-24-20 22 Lipase [Catalytic activity/Vol] 47 U/L Normal 16-61 [facility] Comment on above: Order Comment: Dada arenas Type: BLOOD SPECIMENOrdering Facility: [facility] Address: [address] [place] [address] Performed By: #### 3 040-3, 25508-7, 20342-7, 3016-3 ####[facility] LABORATORYCLIA [id number] [facility] [place] [address] [place] Magnesium SerPl-mCncon 07-24 Magnesium [Mass/Vol] 2.1 mg/dL Normal 1.7-2.3 [facility] Comment on above: Order Comment: Dada arenas Type: BLOOD SPECIMENOrdering Facility: [facility] Address: [address] [address] Performed By: #### 3 040-3, 98507-0, 82957-3, 6-3 ####[facility] CENTERIA [id number] [facility] [place] [address] [place] NT-proBNP [facility]-mCncon 07-24 Natriuretic peptide.B prohormone N-Terminal [Mass/Vol] 345 pg/mL High <125 [facility] Comment on above: Order Comment: Speci men Type: BLOOD SPECIMENOrdering Facility: [facility] Address: [address] [place], [place] [id number] Performed By: #### 3 3762-6 ####[facility] CENTERIA [id number] [place] [id number] [place] TSH SerPl-aCncon 07-24-2022 TSH Qn 1.850 m[IU]/L Normal 0.270-4.200 [facility] Comment on above: Order Comment: Speci men Type: BLOOD SPECIMENOrdering Facility: [facility] Address: [facility] [place] [id number] Result Comment: If t he patient is , TSH reference range varies by gestational period: First Trimester (weeks 9-12): 0.180-2.990 mIU/L Second Trimester: 0.110-3.980 mIU/L Third Trimester: 0.480-4.710 mIU/L Pedro Lim et al. A Practical Approach for the Verifications and Determination of Site- and Trimester-Specific Reference Intervals for Thyroid Function tests in . Thyroid, 2019:29:3:412-420. Jam Pacheco, et al. 2017 Guidelines of the [place] Thyroid Association for the Diagnosis and Management of Thyroid Disease during and the . Thyroid, 2017:27:3:315-389. Performed By: #### 3 040-3, 16716-0, 63365-4, 3015-3 ####[facility] CENTERIA [id number] [place] [address] [place] XR CHEST 1V [...] Payne rods. IMPRESSION: No acute radiographic abnormality. Portfolio Specialist: PSCB Transcribe Date/Time: Jul 23 2022 11:19P Dictated by : HONG MEDRANO MD This examination was interpreted and the report reviewed and electronically signed by: HONG MEDRANO MD on Jul 23 2022 11:19PM EST [id number] Normal [facility] Vital Signs Date Time Vital Sign Value Performing Clinician Facility 09-12-2023 13:20-0500 Body height 171.45 cm [facility] Other 09-12-2023 13:20-0500 Body mass index (BMI) [Ratio] 22.99 kg/m2 [facility] Other 09-12-2023 13:20-0500 Body weight 67.59 kg [facility] Other 05-27-2023 13:40-0400 Body height 170.2 cm Jessee Hamilton MD Work Phone: [facility] 05-27-2023 13:40-0400 Body weight 65.77 kg Jessee Hamilton MD Work Phone: [facility] 05-27-2023 13:40-0400 Diastolic blood pressure 76 mm[Hg] Jessee Hamilton MD Work Phone: [facility] 05-27-2023 13:40-0400 Heart rate 97 /min Jessee Hamilton MD Work Phone: [facility] 05-27-2023 13:40-0400 Systolic blood pressure 124 mm[Hg] Jessee Hamilton MD Work Phone: [facility] 05-26-2023 13:29-0400 Diastolic blood pressure 87 mm[Hg] Ashwini Finefrock PA-C Work Phone: [facility] 05-26-2023 13:29-0400 Systolic blood pressure 122 mm[Hg] Ashwini Finefrock PA-C Work Phone: [facility] 05-26-2023 13:11-0400 Body height 170.2 cm Ashwini Finefrock PA-C Work Phone: [facility] 05-26-2023 13:11-0400 Body temperature 98.29 [degF] Ashwini Finefrock PA-C Work Phone: [facility] 05-26-2023 13:11-0400 Body weight 64.41 kg Ashwini Finefrock PA-C Work Phone: [facility] 05-26-2023 13:11-0400 Heart rate 71 /min Ashwini Finefrock PA-C Work Phone: [facility] 05-26-2023 13:11-0400 SaO2% (BldA) [Mass fraction] 98 % Ashwini Finefrock PA-C Work Phone: [facility] 02-22-2023 14:21-0400 Body height 170.2 cm Ashwini Finefrock PA-C Work Phone: [facility] 02-22-2023 14:21-0400 Body weight 56.25 kg Ashwini Finefrock PA-C Work Phone: [facility] 02-22-2023 14:21-0400 Diastolic blood pressure 79 mm[Hg] Ashwini Finefrock PA-C Work Phone: [facility] 02-22-2023 14:21-0400 Heart rate 90 /min Ashwini Finefrock PA-C Work Phone: [facility] 02-22-2023 14:21-0400 SaO2% (BldA) [Mass fraction] 98 % Ashwini Finefrock PA-C Work Phone: [facility] 02-22-2023 14:21-0400 Systolic blood pressure 110 mm[Hg] Ashwini Finefrock PA-C Work Phone: [facility] 02-08-2023 15:30-0400 Body height 170.2 cm Chitra Mizanin PA-C Work Phone: [facility] 02-08-2023 15:30-0400 Body weight 55.79 kg Chitra Mizanin PA-C Work Phone: [facility] 02-08-2023 15:30-0400 Diastolic blood pressure 84 mm[Hg] Chitra Mizanin PA-C Work Phone: [facility] 02-08-2023 15:30-0400 Heart rate 71 /min Chitra Mizanin PA-C Work Phone: [facility] 02-08-2023 15:30-0400 SaO2% (BldA) [Mass fraction] 98 % Chitra Mizanin PA-C Work Phone: [facility] 02-08-2023 15:30-0400 Systolic blood pressure 128 mm[Hg] Chitra Mizanin PA-C Work Phone: [facility] 02-04-2023 11:16-0400 Diastolic blood pressure 82 mm[Hg] Chitra Mizanin PA-C Work Phone: [facility] 02-04-2023 11:16-0400 Systolic blood pressure 124 mm[Hg] Chitra Mizanin PA-C Work Phone: [facility] 02-04-2023 10:56-0400 Body height 170.2 cm Chitra Mizanin PA-C Work Phone: [facility] 02-04-2023 10:56-0400 Body weight 55.34 kg Chitra Mizanin PA-C Work Phone: [facility] 02-04-2023 10:56-0400 Heart rate 78 /min Chitra Mizanin PA-C Work Phone: [facility] 02-04-2023 10:56-0400 SaO2% (BldA) [Mass fraction] 99 % Chitra Mizanin PA-C Work Phone: [facility] 02-03-2023 14:55-0400 Body height 170.2 cm Aria Glasenapp PA-C Work Phone: [facility] 02-03-2023 14:55-0400 Body weight 55.43 kg Aria Glasenapp PA-C Work Phone: [facility] 02-03-2023 14:55-0400 Diastolic blood pressure 89 mm[Hg] Aria Glasenapp PA-C Work Phone: [facility] 02-03-2023 14:55-0400 Heart rate 80 /min Aria Glasenapp PA-C Work Phone: [facility] 02-03-2023 14:55-0400 Systolic blood pressure 152 mm[Hg] Aria Glasenapp PA-C Work Phone: [facility] 12-22-2022 08:20-0400 Body height 171.5 cm Marco Mendis DO Work Phone: [facility] 12-22-2022 08:20-0400 Body weight 50.8 kg Marco Stephensis DO Work Phone: [facility] 12-22-2022 08:20-0400 Diastolic blood pressure 87 mm[Hg] Marco Stephensis DO Work Phone: [facility] 12-22-2022 08:20-0400 Heart rate 67 /min Marco Stephensis DO Work Phone: [facility] 12-22-2022 08:20-0400 Respiratory rate 16 /min Marco Slade DO Work Phone: [facility] 12-22-2022 08:20-0400 SaO2% (BldA) [Mass fraction] 100 % Marco Slade DO Work Phone: [facility] 12-22-2022 08:20-0400 Systolic blood pressure 129 mm[Hg] Marco Slade DO Work Phone: [facility] 09-27-2022 09:10-0500 Body height 170.2 cm Jessee Hamilton MD Work Phone: [facility] 09-27-2022 09:10-0500 Body weight 50.35 kg Jessee Hamilton MD Work Phone: [facility] 09-27-2022 09:10-0500 Diastolic blood pressure 78 mm[Hg] Jessee Hamilton MD Work Phone: [facility] 09-27-2022 09:10-0500 Heart rate 87 /min Jessee Hamilton MD Work Phone: [facility] 09-27-2022 09:10-0500 SaO2% (BldA) [Mass fraction] 99 % Jessee Hamilton MD Work Phone: [facility] 09-27-2022 09:10-0500 Systolic blood pressure 110 mm[Hg] Jessee Hamilton MD Work Phone: [facility] Encounters Encounter Date Encounter Type Care Provider Facility Start: 02-27-2024 End: 02-27-2024 ambulatory Chucky Hernandez MD Facility:[facility] Start: 12-20-2023 End: 12-20-2023 ambulatory [facility] Start: 10-31-2023 End: 10-31-2023 ambulatory [facility] Start: 10-03-2023 End: 10-03-2023 ambulatory Chucky Hernandez MD Facility:[facility] Start: 09-26-2023 End: 09-26-2023 ambulatory Chucky Hernandez MD Facility:[facility] Start: 09-12-2023 End: 09-12-2023 ambulatory Lorie Townsend Facility:[facility] Start: 09-12-2023 End: 09-12-2023 Patient encounter procedure PHYSICIAN NO [facility] Work Phone: Start: 09-12-2023 End: 09-12-2023 ambulatory PHYSICIAN NO [facility] Work Phone: Start: 09-12-2023 Office outpatient ne w 45 minutes Lorie Townsend [facility] Start: 07-14-2023 End: 07-15-2023 ambulatory TERRIE BROWN [facility] Start: 07-14-2023 End: 07-14-2023 Office outpatient visit 25 minutes Terrie Brown MD Work Phone: [facility] Comment on above: Neuropathy (Primary Dx); Lumbar radiculopathy Start: 06-21-2023 ambulatory [facility] Start: 06-15-2023 Refill Ashwini L F inefrock PA-C Work Phone: [facility] Comment on above: Refill Request Start: 06-05-2023 Refill Ashwini L F inefrock PA-C Work Phone: [facility] Comment on above: Refill Request Start: 05-30-2023 Refill Ashwini L F inefrock PA-C Work Phone: [facility] Comment on above: Refill Request Start: 05-27-2023 End: 05-27-2023 ambulatory ASHWINI MATUTE Facility:[facility] Start: 05-27-2023 End: 05-27-2023 Patient encounter procedure Jessee Hamilton MD Work Phone: Cardiology Comment on above: Paroxysmal atrial fi brillation (HCC) (Primary Dx); Palpitations Start: 05-26-2023 End: 05-26-2023 ambulatory ASHWINI MATUTE Facility:[facility] Start: 05-26-2023 End: 05-26-2023 Patient encounter procedure Ashwini Carina Amy PA-C Work Phone: [facility] Comment on above: Moderate episode of recurrent major depressive disorder (HCC) (Primary Dx); Attention deficit hyperactivity disorder (ADHD), unspecified ADHD type; Alcohol abuse; Juvenile idiopathic scoliosis of thoracolumbar region; Paroxysmal atrial fibrillation (HCC); Neuropathy; Encounter for immunization Start: 05-20-2023 Get Medical Advice Uri Hoyosfrjenniffer PA-C Work Phone: [facility] Comment on above: Adderall refill Start: 05-19-2023 Refill Ashwini Nguyễn higiniofrock PA-C Work Phone: [facility] Comment on above: Refill Request Start: 05-18-2023 Refill Ashwini Nguyễn inefrock PA-C Work Phone: [facility] Comment on above: Refill Request Start: 05-15-2023 Refill Ashwini Nguyễn inefrock PA-C Work Phone: [facility] Comment on above: Refill Request Start: 04-27-2023 Refill Chitra Lim Theodora capellanin PA-C Work Phone: [facility] Comment on above: Refill Request Start: 04-26-2023 Refill Ashwini Nguyễn inefrock PA-C Work Phone: [facility] Comment on above: Refill Request Start: 04-21-2023 Get Medical Advice Uri Hoyosfrock PA-C Work Phone: [facility] Comment on above: Adderall refill Start: 04-12-2023 ambulatory Ashwini Carina Nguyễn higiniofrock PA-C Work Phone: [facility] Start: 04-12-2023 Letter encounter Ashwiniloreto Hoyosmaryann PA-C Work Phone: [facility] Comment on above: Letter for Disabilit y Start: 03-31-2023 Refill Ashwini Nguyễn karissa PA-C Work Phone: [facility] Start: 03-22-2023 ambulatory Ashwini Nguyễn karissa PA-C Work Phone: [facility] Comment on above: Resend prescription Refill Request Med refill Start: 2023 Chart Update Ashwini Nguyễn phamock Work Phone: [facility]-Lxnyqdryogek-Sthdrn an Work Phone: Start: 03-14-2023 End: 03-14-2023 MC Get Medical Advice Ashwini Carina Amy PA-C Work Phone: [facility] Comment on above: Medication refills Low back pain, unspe cified; Radiculopathy, lumbar region; Arthrodesis status Start: 03-14-2023 Chart Update Ashwini Nguyễn phamock Work Phone: [facility]-[address]w-[address] Work Phone: Start: 03-09-2023 AUDIT Ashwini Nguyễn higinioock Work Phone: AS-Ayzvvdjypavp-Tftizl an Work Phone: Start: 03-03-2023 End: 03-03-2023 ambulatory ARIA IZQUIERDO Facility:[facility] Start: 02-25-2023 ambulatory Aria Izquierdo PA-C Work Phone: [facility] Start: 02-25-2023 Patient encounter procedure Aria Izquierdo PA-C Work Phone: OB/Gynecology Comment on above: Upcoming appointment Start: 02-24-2023 Chart Update Ashwiniloreto Nguyễn phamock Work Phone: TJ-Rimjeqwrtkgd-Qrlerq ke Work Phone: Start: 02-22-2023 End: 02-22-2023 ambulatory ASHWINI MATUTE Facility:[facility] Start: 02-22-2023 End: 02-22-2023 Patient encounter procedure Ashwiniloreto Arangojenniffer PA-C Work Phone: [facility] Comment on above: Mild episode of recu rrent major depressive disorder (HCC) (Primary Dx); Attention deficit hyperactivity disorder (ADHD), unspecified ADHD type; Vitamin D deficiency Start: 02-15-2023 End: 02-15-2023 ambulatory ASHWINI MATUTE Facility:[facility] Start: 02-10-2023 NPV, Provider: Terrie Brown, Status: Pen, Time: 1:30 PM Terrie Brown MD Work Phone: SA-Hkobcmoecgpt-Maqafp 107 DO Work Phone: Start: 02-10-2023 Office outpatient ne w 30 minutes Ashwini Hoyosjenniffer Work Phone: AG-Lvbhodaurntq-Vnudbl ke Work Phone: Start: 02-10-2023 Refill Ashwini hancock PA-C Work Phone: [facility] Start: 02-08-2023 AUDIT Terrie aiken MD Work Phone: FG-Ijpbtccxpxpe-Qdmnnq 107 DO Work Phone: Start: 02-08-2023 End: 02-08-2023 Office outpatient visit 25 minutes Chitra Carina Yipanin PA-C Work Phone: [facility] Comment on above: Upper back pain on r ight side (Primary Dx) Start: 02-08-2023 End: 02-08-2023 ambulatory Bindu Tirado RT(R) Radiology Comment on above: Radio Gen RMP Start: 02-08-2023 Patient encounter procedure Bindu Tirado RT(R) [facility] Start: 02-07-2023 ambulatory Chitra capellanin PA-C Work Phone: [facility] Start: 02-07-2023 Patient encounter procedure Chitra Carina Benjy PA-C Work Phone: Internal Medicine [facility] Comment on above: Appointment request Start: 02-04-2023 End: 02-04-2023 ambulatory ASHWINI MATUTE Facility:[facility] Start: 02-04-2023 End: 02-04-2023 Office outpatient visit 15 minutes Chitra Burnett PA-C Work Phone: Internal Medicine [facility] Comment on above: Neuropathy (Primary Dx) Start: 02-03-2023 End: 02-03-2023 Subsequent [facility] Work Phone: Cardiovascular Testing Comment on above: Palpitations [R00.2] Start: 02-03-2023 End: 02-03-2023 ambulatory ARIA IZQUIERDO Facility:[facility] Start: 02-03-2023 End: 02-03-2023 Patient encounter procedure Aria Lionelizabeth PA-C Work Phone: OB/Gynecology Comment on above: Counseling for control regarding intrauterine device (IUD) Start: 01-11-2023 End: 01-11-2023 ambulatory ASHWINI MATUTE Facility:[facility] Start: 01-11-2023 Telephone encounter Yue BRANNON Work Phone: Adult Psychology Comment on above: Behavioral Health/So cial Work Start: 12-31-2022 Telephone encounter Marco Slade DO Work Phone: Spine Medicine Comment on above: Scans Start: 12-22-2022 End: 12-22-2022 Subsequent hospital visit by physician [facility] Work Phone: [facility] Radiology General Comment on above: Juvenile idiopathic scoliosis of thoracolumbar region [M41.115] Start: 12-22-2022 End: 12-22-2022 ambulatory MARCO SLADE Facility:[facility] Start: 12-22-2022 End: 12-22-2022 Patient encounter procedure Marco Slade DO Work Phone: Spine Medicine Comment on above: 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 Start: 07-24-2022 End: 07-24-2022 Emergency department patient visit [facility] Facility:[facility] Procedures Date Procedure Procedure Detail [...] 2) Zoste r Vaccines (1 of 2) [facility] Start: 01-12-2024 COVID-19 VACCINE (#1) COVID-19 VACCI NE (#1) [facility] Comment on above: Postponed from 09/15 (Declined at this time) Start: 05-26-2023 End: 07-26-2023 Comprehensive metabolic 2000 panel - Serum or Plasma [facility] Work Phone: Comment on above: Expected: 05/26/2023 , Expires: 07/26/2023 Start: 05-26-2023 End: 07-26-2023 TOX SCREEN ROUT UR [facility] Work Phone: Comment on above: Expected: 05/26/2023 , Expires: 07/26/2023 Start: 05-06-2023 Influenza vaccination C [facility] Start: 09-05-2022 DEPRESSION ASSESSMENT DEPRESSION ASS ESSMENT [facility] Start: 05-06-2022 Influenza vaccination INFLUENZA (#1) [facility] Start: 2021 HPV TESTING HPV TESTING [facility] Start: 2013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 Burnett PA-C Service: ? Author Type: Physician Top Steep Tender Type: Progress Notes Filed: 02/04/2023 12:34 PM [...] yet. 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 She's currently followed by Dr Dennis for pain management and Spine. She reports Dr Dennis told her there's nothing additional he can do for her so she didn't think she would need to follow up. She had a CT Myelogram ordered by [facility] Spine - but it was scheduled in [place] as a traditional CT so it was [...] the Rx since she now lives in [place] Review of Systems All other systems reviewed [...] out of state. Pt will call [place] CT scheduling to set up the CT myelogram appropriately. [facility]06-02-2023 History of Present illness Narrative* Chitra Burnett [...] yet. 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 She's currently followed by Dr Dennis for pain management and Spine. She reports Dr Dennis told her there's nothing additional he can do for her so she didn't think she would need to follow up. She hada CT Myelogram ordered by [facility] Spine - but it was scheduled in [place] as a traditional CT so it was [...] the Rx since she now lives in [place] Review of Systems All other systems reviewed [...] out of state. Pt will call [place] [facility] scheduling to set up the CT myelogram appropriately. Chitra Burnett PA-C documented in this encounterTrumbull [facility] Center06-01-2023 NoteHNO ID: [id number] Author: Aria Izquierdo PA-C Service: ? Author Type: Physician Top Steep Tender Type: Progress Notes Filed: 02/03/2023 4:11 PM [...] disorder) Ovarian cyst PAF (paroxysmal atrial fibrillation) ([facility]) 07/2022 follows with cardiology Scoliosis SVT, lower extremity (HCC) 2018 ASA only no anticoagulants PAST SURGICAL [...] the second pill 8-10 hours prior to CAKE FORMER appt for cervical dilation. metoprolol tartrate, short [...] of this record were documented by the Anesthesiologist/Physician. I, Aria Izquierdo, have reviewed this information as documented for accuracy and performed all elements of history taking, and edited the record as necessary. ROS: SEE HPI PE: GENERAL: well-appearing, in no acute distress LUNGS: Normal inspiratory effort CAKE FORMER: deferred NEURO: Awake, alert and oriented A/P: [...] the date of the service which included [id number] patient care, completing clinical documentation, counseling and educating the patient/family/caregiver, and ordering medications, tests, or procedures.[facility]06-01-[facility] History of Present illness Narrative* Aria Izquierdo [...] disorder) Ovarian cyst PAF (paroxysmal atrial fibrillation) ([facility]) 07/2022 follows with cardiology Scoliosis SVT, lower extremity ([facility]) 2019 ASA only no anticoagulants PAST SURGICAL [...] the second pill 8-10 hours prior to CAKE FORMER appt for cervical dilation. metoprolol tartrate, short [...] of this record were documented by the Anesthesiologist/Physician. I, Aria Izquierdo, have reviewed this information as documented for accuracy and performed all elements of history taking, and editedthe record as necessary. ROS: SEE HPI PE: GENERAL: well-appearing, in no acute distress LUNGS: Normal inspiratory effort CAKE FORMER: deferred NEURO: Awake, alert and oriented A/P: [...] the date of the service which included [id number] patient care, completing clinical documentation, counseling and educating the patient/family/caregiver, and ordering medications, tests, or procedures. documented in this encounterTrumbull Regional Medical Center05-11-2023 NoteHNO ID: [id number] Author: Ashwini Matute PA-C Service: ? Author Type: Physician Top Steep Tender Type: Progress Notes Filed: 01/13/2023 2:09 PM Note Text: This note was created using [employer]. Subjective Hue Titus is a 32 year old female. HPI Hue Titus is a 32 year old female who presents today to establish care as a new patient. She has a history of juvenile scoliosis and is currently being treated by both framing specialist and pain management. She is on both gabapentin and lyrica for her chronic back pain and recently failed an attempted spinal cord stimulator procedure. She is awaiting additional CT imaging to determine next course of treatment. 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 She recently moved back to the area after living in [place] for over 5 yrs. She complains of [...] extremity (HCC) 2018 PAF (paroxysmal atrial fibrillation) ([facility]) 07/2022 follows with cardiology Scoliosis Past Surgical [...] kg (119 lb) LMP (more content not included)...[facility]05-09-2023 Miscellaneous Notes * Telephone Encounter - SALUD Reeves - 01/11/2023 3:22 PM EDT Behavioral Health Social Work Progress Note Patient identified for [facility] from: PCP Reason for referral[facility] Resources: Psychology - talk therapy [facility] encounter type: Telephone Encounter, Varsity Opt[employer]hart Message Attempts to Outreach: 1 attempt Referral made: Psychology - External Psychology-External referral type: Therapy Reason for external referral: Patient seeking manager terminal support Final Disposition: Resources given Patient Discharged?: Yes Patient reported that caregiver was able to meet their needs today?: Yes [facility] consult received for anxiety and depression. [facility] placed telephone call at the request of the PCP to discuss behavioral health needs and provide referrals for outpatient support. Patient states she is looking to establish with a therapy provider. Would like telephone number to schedule within [facility] and externally. Will send the following: [facility] Psychiatry and Counseling Central Scheduling Call Center [phone] [facility] ([place]) [phone] [facility] ([place]) Counseling only [phone] [facility] ([place]) Counseling only [phone] [facility] Counseling & Consulting [facility] ([place]) Counseling only [phone] [facility] ([place]) [phone] Extension: [phone] [employer] [facility] ([place]) Counseling only [phone] [facility] ([place]) Counseling only [phone] [facility] ([place]) Counseling only [phone] [facility] ([place]) [phone] [facility] ([place]) [phone] [facility] ([place]) Counseling only [phone] [facility] [place] ([place]) Counseling only [phone] [facility] Counseling [facility] ([place]) Counseling only [phone] [facility] ([place]) [phone] [facility] ([place]) Counseling only [phone] [facility] [place] ([place]) Counseling only [phone] [facility] ([place]) Counseling only [facility] [phone] [facility] ([place]) Counseling only [phone] [facility] ([place]) Counseling only [phone] [facility] ([place]) Counseling only [phone] [facility] ([place]) Counseling only [phone] SALUD Reeves, ACM-SW January 11, 2023 documented in this encounterTrumbull Regional Medical Center04-28-2023 Miscellaneous Notes* Telephone Encounter - Ivanna Jj RN - 12/31/2022 3:56 PM EDT I spoke to [facility] regarding the orders it appears in place. [...] 31, 2022 3:35 PM documented in this encounterTrumbull Regional Medical Center04-19-2023 History of Present illness Narrative* Dorota Conn [...] 22, 2022 1:26 PM documented in this encounterTrumbull Regional Medical Center04-19-2023 NoteHNO ID: [id number] Author: Marco Slade, DO Service: ? Author Type: Physician Type: Progress Notes Filed: 12/26/2022 9:50 PM Note Text: [facility] [place] - [place] [facility] - Medical Spine Initial [...] now seeking neurosurgical evaluation for SCS at [facility]. Denies bowel/bladder incontinence or saddle anesthesia. [...] surgery: -05/16/06 Dr. 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 Manan Garcia at [facility]: T2 to L2 PSF for scoliosis Previously treated by: -Pain Management Dr. Jolly Dennis. -Pain Management Dr. Miguel Angel Pinedo, [facility] in [place] -NSGY Dr. Raymond Sheikh, Neurological Services [facility] in [place] - Rx PT on 02/2022 -Ortho Spine Surgery Dr. Rico Mustafa, [facility] in [place] -NSGY Dr. Shawn Hardin 07/24/21 - no signs of radiculopathy on imaging/EMG, did not recommend surgery; rec SNRB vs SCS. -NSGY Dr. Miguel Angel Allison at [facility] 2005. -NSGY Dr. Manan Garcia at [facility] 2004 PMH: PAF - previously on [...] Illicit drugs: no Personal life: Moved to [place] in 2014 then back to [place] from [place] in 2021. 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 [facility] [place] [facility] - Medical [...] is now seeking neurosurgicalevaluation for SCS at [facility]. Denies bowel/bladder incontinence or saddle anesthesia. [...] surgery: -05/16/06 Dr. 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 Manan Garcia at [facility]: T2 to L2 PSF for scoliosis Previously treated by: -Pain Management Dr. Jolly Dennis. -Pain Management Dr. Miguel Angel Pinedo, [facility] in [place] -NSGY Dr. Raymond Sheikh, Neurological Services [facility] in [place] - Rx PT on 02/2022 -Ortho Spine Surgery Dr. Rico Mustafa, [facility] in [place] -NSGY Dr. Shawn Hardin 07/24/21 - no signs of radiculopathy on imaging/EMG, did not recommend surgery; rec SNRB vs SCS. -NSGY Dr. Miguel Angel Allison at [facility] 2005. -NSGY Dr. Manan Garcia at [facility] 2004 PMH: PAF - previously on [...] Illicit drugs: no Personal life: Moved to [place] in 2014 then back to [place] from [place] in 2021. 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 SENSORY: sensation decreased to light touch [...] indicated. 01/14/2022 MRI lumbar spine without contrast, [place], [place]: Leftward lumbar curvature. No acute marrow [...] 05/06/2021 MRI lumbar spine without contrast, report, [place], [place]: There has been prior posterior spinal [...] may be of benefit. 03/16/2021 EMG/NCS RLE, [facility] [place], [place], Dr. Don Bailon MD: Mildly abnormal [...] tested) 06/16/2020 CT lumbar spine without contrast, [place], [place]: Thoracolumbar fusion. Bilateral rods and pedicle [...] the sacroiliac joints. 06/06/2020 XR lumbar AP/Flex/Ext, [facility] [place], [place]: There is partially visualized posterior thoracolumbar [...] this time. Would recommend referral to the [place] for pain recovery program if she is [...] of neurological status. 7) Future treatment considerations: -[place] [facility] Kris Rodrigues MD Spine [...] which included preparing to see the patient, [id number] patient care, completing clinical documentation, obtaining and/or reviewing separately obtained history, performing a medically appropriate examination, counseling and educating the pat ient/family/caregiver, ordering medications, tests, or procedures, independently interpreting results (not separately reported), and communicating results to the patient/family/caregiver. SIGNATURE: Marco Slade DO PATIENT NAME: Hue Aguilar DATE: December 22, 2022 TIME: 8:17 AM documented in this encounterTrumbull Regional Medical Center03-03-2023 NoteHNO ID: [id number] Author: Humberto Herndon MD Service: ? Author Type: Physician Type: Procedures Filed: 12/14/2022 1:03 PM Note Text: [place] [id number] NAME: HUE AGUILAR : 1990 ENROLLMENT: 11/08/2022 - 12/07/2022 Sinus rhythm with intermittent sinus tachycardia. Reviewed, Edited and Signed by Humberto Herndon MD December 14, 2022 1:02 [facility]03-03-2023 Miscellaneous Notes* Telephone Encounter - Yo Adames LPN - 11/05/2022 3:09 PM EST Called patient to inform her that a new order was placed for the 30 day [employer]. Called [employer] rep(Akash Kirby) to help expedite the order. Yo Adames LPN documented in this encounterTrumbull Regional Medical Center01-23-2023 Nurse Note* Carlyn Weber LPN - 09/27/2022 9:31 AM EST Gate Attendant present: For cardiology exam with Dr Corky Weber LPN documented in this encounterTrumbull Regional Medical Center01-23-2023 Instructions* Patient Instructions* Jessee Hamilton MD - 09/27/2022 9:30 AM EST Please, follow up with me after the echocardiogram and event monitor to discuss results. Please, see me as scheduled, or sooner should symptoms appear or worsen. documented in this encounterTrumbull Regional Medical Center01-23-2023 History of Present illness Narrative* Jessee Hamilton [...] with spontaneous conversion into normal sinus rhythm. [id number] based on the information we have [...] future. CONTACT INFORMATION: Jessee Hamilton M.D. Staff Home Health Aide [facility] [place] [address] [facility] [address] documented in this encounterTrumbull Regional Medical Center01-11-2023 Miscellaneous Notes* Telephone Encounter - Ave Antonio MA - 09/15/2022 1:17 PM EST Received OV [facility] from [facility], requesting pt be scheduled as soon as possible. Pt already scheduled with Dr. Hamilton 09/27/2022. Sent for scanning. documented in this encounterTrumbull Regional Medical Center11-19-2022 NoteHNO ID: [id number] Author: Interface Note Service: ? Author Type: ? Type: Progress Notes Filed: 07/24/2022 2:42 AM Note Text: Epic Scheduled Downtime: 07/24/2022 1:00:00 AM to 07/24/2022 2:26:04 [facility] NoteHNO ID: [id number] Author: RT Michelle(R) Service: Radiology Author Type: [place] Type: Progress Notes Filed: 07/23/2022 11:18 PM [...] BY: RT Michelle(R) July 23, 2022 11:18 [facility] [id number] NoteCOVID 19 RESULT: SARS-CoV-2 (Agent of COVID-19) Not Detected by RT-PCR or equivalent method. This test has been authorized by FDA under an Emergency Use Authorization (EUA). INFLUENZA A PCR: Negative for Influenza A by RT-PCR INFLUENZA B PCR: Negative for Influenza B by RT-PCR RSV PCR: Negative for Respiratory Syncytial Virus (RSV) by PCRBonifay HospitalComment on above:Performed By: #### [id number] ####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), idiopathic Arthrodesis status Paresthesia of right foot Disturbance of skin sensation documented in this encounter [facility]* Diagnosis Counseling for control regarding intrauterine device (IUD) documented in this encounter [facility]* Diagnosis Neuropathy- Primary Mononeuritis of unspecified site documented in this encounter [facility]* Diagnosis Upper back pain on right side- Primary Pain in thoracic spine [facility]* Diagnosis Attention deficit hyperactivity disorder (ADHD), unspecified ADHD type- Primary documented in this encounter [facility]* Diagnosis Mild episode of recurrent major depressive disorder (HCC)- Primary Attention deficit hyperactivity disorder (ADHD), unspecified ADHD type Vitamin D deficiency Unspecified vitamin D deficiency documented [facility]* Diagnosis 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), idiopathic Attention deficit hyperactivity disorder (ADHD), unspecified ADHD type Neuropathy Mononeuritis of unspecified site documented in this encounter [facility]* Diagnosis Attention deficit hyperactivity disorder (ADHD), unspecified ADHD type documented [facility]* Diagnosis Attention deficit hyperactivity disorder (ADHD), unspecified ADHD type documented [facility]* Diagnosis Attention deficit hyperactivity disorder (ADHD), unspecified ADHD type- Primary [facility]* Diagnosis Attention deficit hyperactivity disorder (ADHD), unspecified ADHD type documented [facility]* Diagnosis 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), idiopathic Neuropathy Mononeuritis of unspecified site documented in this encounter [facility]* Diagnosis 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), idiopathic Neuropathy Mononeuritis of unspecified site documented [facility]* Diagnosis Attention deficit hyperactivity disorder (ADHD), unspecified ADHD type documented [facility]* Diagnosis Attention deficit hyperactivity disorder (ADHD), unspecified ADHD type documented in this encounter [facility]* Diagnosis Moderate episode of [...] single bacterial disease documented in this encounter [facility]* Diagnosis Paroxysmal atrial fibrillation (HCC)- Primary Atrial fibrillation Palpitations documented in this encounter [facility]* Diagnosis 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), idiopathic Neuropathy Mononeuritis of unspecified site documented in this encounter [facility]* Diagnosis 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), idiopathic Neuropathy Mononeuritis of unspecified site documented in this encounter [facility]* Diagnosis 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), 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 status documented in this encounter [facility]* Diagnosis Neuropathy- Primary Mononeuritis of unspecified site Lumbar radiculopathy Thoracic or lumbosacral neuritis or radiculitis, unspecified documented in this encounter [facility] Work Phone: Evaluation note* Diagnosis Low back pain, unspecified Radiculopathy, lumbar region Thoracic or lumbosacral neuritis or radiculitis, unspecified Arthrodesis status documented in this encounter [facility] Work Phone: Evaluation noteNo assessment information available [facility] Work Phone: History general Narrative - Reported* Type Description Date Medical History alcoholism Medical History migraine headache Medical History chronic depression Surgical History scoliosis repair Hospitalization History see above Hab Housing Other History of Present illness NarrativeTried to call patient to remind her to get labs before her CT myelogram. Called the numbers listed in EMR. The cell phone number listed is the wrong number and the number listed as home did not go through.[id number] Work Phone: Reason for referral (narrative)* Outpatient Procedure (Routine) - Pending Review Specialty Diagnoses / Procedures [facility] Diagnoses Palpitations Procedures ECHO ECHO TTHRC R-T 2D W/WOM-MODE COMPL SPEC&COLR D Jessee Hamilton MD [address] [place] [address] [place] [address] Referral ID Status Reason Start Date Expiration Date Visits Requested Visits Authorized [id number] Pending Review Auto-Generat ed Referral 09/27/2022 09/27/2023 1 1 * Outpatient Procedure (Routine) - Closed Specialty Diagnoses / Procedures [facility] To Contact [facility] Diagnoses Palpitations Procedures ECG COMPLETE ECG ROUTINE ECG W/LEAST 12 LDS W/I&R Jessee Hamilton MD [address] [place] [address] [place] [address] Referral ID Status Reason Start Date Expiration Date V isits Requested Visits Authorized [id number] Closed Auto-Generate d Referral 09/27/2022 09/27/2023 1 1 [facility] for referral (narrative)* Diagnostic Procedure Only (Routine) - Closed Specialty Diagnoses / Procedures Referred By [facility] Referred To Contact XR IMAGING Diagnoses 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 Procedures XR SCOLIOSIS PA STAND/LAT 2V RADEX ENTIR THRC LMBR CRV SAC SPI W/SKULL 2/3 VW Marco Slade DO [address] [place] [address] Xr Imaging Referral ID Status Reason Start Date Expiration Date V isits Requested Visits Authorized [id number] Closed Auto-Generate d Referral 12/22/2022 01/21/2024 1 1 * Consult, Test, Treat (Routine) - Pending Review Specialty Diagnoses / Procedures Referred By Contac t Referred To Contact Neurosurgery Diagnoses 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 Procedures CONSULT TO NEUROSURGERY OFFICE/OUTPATIENT NEW HIGH MDM 60-74 MINUTES Marco Slade DO [address] [place] [address] Referral ID Status Reason Start Date Expiration Date Visits Requested Visits Authorized [id number] Pending Review PCP Requested Referral 12/22/2022 12/22/2023 1 1 * Physical Therapy (Routine) - Pending Review Specialty Diagnoses / Procedures Referred By Contac t Referred To Contact [facility] Diagnoses 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 Procedures CONSULT TO PHYSICAL THERAPY PHYSICAL THERAPY EVALUATION HIGH COMPLEX 45 MINS Marco Slade DO [address] [place] [address] [facility] [address] [address] Referral ID Status Reason Start Date Expiration Date Visits Requested Visits Authorized [id number] Pending Review Auto-Generat ed Referral 12/22/2022 12/22/2023 1 1 [facility] for referral (narrative)* Outpatient Procedure (Routine) - Pending Review Specialty Diagnoses / Procedures Referred By Contac t Referred To Contact [facility] Diagnoses Counseling for control regarding intrauterine device (IUD) Procedures INSERT INTRAUTERINE DEVICE LEVONORGESTREL IU 52MG 5 YR INSERT INTRAUTERINE DEVICE Aria Izquierdo PA-C [address] [place] [address] [facility] [address] [place] [id number] Referral ID Status Reason Start Date Expiration Date Visits Requested Visits Authorized [id number] Pending Review Auto-Generat ed Referral 02/03/2023 02/03/2024 1 1 [facility] for referral (narrative)* Diagnostic Procedure Only (Urgent) - Closed Specialty Diagnoses / Procedures Referred By Contac t Referred To Contact XR IMAGING Diagnoses Upper back pain on right side Procedures XR THORACIC GENERAL 3V AP/LAT/SWIMMERS RADEX SPINE THORACIC 3 VIEWS Chitra Burnett PA-C [address] [place] [address] Xr Imaging Referral ID Status Reason Start Date Expiration Date V isits Requested Visits Authorized [id number] Closed Auto-Generate d Referral 02/08/2023 03/09/2024 1 1 * Diagnostic Procedure Only (Urgent) - Closed Specialty Diagnoses / Procedures Referred By Contac t Referred To Contact XR IMAGING Diagnoses Upper back pain on right side Procedures XR SCAPULA 2V AP/LAT RIGHT RADEX SCAPULA COMPLETE Chitra Burnett PA-C [address] [place] [address] Xr Imaging Referral ID Status Reason Start Date Expiration Date V isits Requested Visits Authorized [id number] Closed Auto-Generate d Referral 02/08/2023 03/09/2024 1 1 [facility] for referral (narrative)* Diagnostic Procedure Only (Routine) - Closed Specialty Diagnoses / Procedures Referred By Contac t Referred To Contact XR IMAGING Diagnoses 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 Procedures XR SCOLIOSIS PA STAND/LAT 2V RADEX ENTIR THRC LMBR CRV SAC SPI W/SKULL 2/3 VW Marco Slade, DO [address] [place] [address] Xr Imaging [place] [address] Referral ID Status Reason Start Date Expiration Date V isits Requested Visits Authorized [id number] Closed Auto-Generate d Referral 12/22/2022 01/21/2024 1 1 [facility] for referral (narrative)* Consultation (Routine) - Authorized Specialty Diagnoses / Procedures Referred By Contac t Referred To Contact Pain Medicine Diagnoses [place] [address] [facility] [place] [address] [place] [address] [place] [address] Referral ID Status Reason Start Date Expiration Date Visits Requested Visits Authorized [id number] Authorized Specialty Services Required 07/14/2023 07/13/2024 1 1 * Consultation (Routine) - Authorized Specialty Diagnoses / Procedures Referred By Contac t Referred To Contact Neurology [place] [address] [facility] [place] [address] Referral ID Status Reason Start Date Expiration Date Visits Requested Visits Authorized [id number] Authorized Specialty Services Required 07/14/2023 07/13/2024 1 1 [facility] Work Phone: [facility] for visit Narrative* Diagnostic Procedure Only (Routine) - Closed Specialty Diagnoses / Procedures Referred By Contac t Referred To Contact XR IMAGING Diagnoses 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 Procedures XR SCOLIOSIS PA STAND/LAT 2V RADEX ENTIR THRC LMBR CRV SAC SPI W/SKULL 2/3 VW Marco Slade DO [address] [place] [address] Xr Imaging [place] [address] Referral ID Status Reason Start Date Expiration Date V isits Requested Visits Authorized [id number] Closed Auto-Generate d Referral 12/22/2022 01/21/2024 1 1 [facility] for visit NarrativeSELF REFERRAL PINCHED NERVE LOW BACK Hab Housing Other Summary Purpose Family History No Family [...] (ADHD), unspecified ADHD type Ashwini Matute PA-C [address] [place] [address] Referral ID Status Reason Start Date Expiration Date Visits Re quested Visits Authorized [id number] Closed 1 1 Referral ID Status Reason Start Date Expiration Date Visits Re quested Visits Authorized [id number] Closed 1 1 Referral ID Status Reason Start Date Expiration Date Visits Re quested Visits Authorized [id number] Closed 1 1 Referral ID Status Reason Start Date Expiration Date V isits Requested Visits Authorized [id number] Pending Review 1 1 Referral ID Status Reason Start Date Expiration Date Visits Re quested Visits Authorized [id number] Closed 1 1 Referral ID Status Reason Start Date Expiration Date Visits Re quested Visits Authorized [id number] Closed 1 1 Referral ID Status Reason Start Date Expiration Date Visits Re quested Visits Authorized [id number] Closed 1 1 Reason Aqua therapy - evalu ate and treat Diagnosis 1 Lumbar radiculopathy , right (M54.16) Referral Organization [facility] urosurgery Referring Provider First Name Lorie Referring Provider Last Name Cary Referring Provider Specialty Nurse Pract derik Referred Organization [facility] Scheduling Referred Address [address] [place], [place],[address] Referred Provider Specialty Physical The rapist Referral Priority Routine Chief Complaint and Reason for Visit Chief Complaint M54.50 Additional Source Comments INFORMATION SOURCE (unrecogn ized section and content) DATE CREATED AUTHOR 07/25/2022 [facility] DATE CREATED AUTHOR AUTHOR'S ORGANIZ ATION 03/12/2023 [employer] DATE CREATED AUTHOR AUTHOR'S ORGANIZ ATION 05/03/2023 [facility] DATE CREATED AUTHOR AUTHOR'S ORGANIZ ATION 06/22/2023 [facility] DATE CREATED AUTHOR AUTHOR'S ORGANIZ ATION 07/18/2023 [facility] DATE CREATED AUTHOR AUTHOR'S ORGANIZ ATION 10/15/2023 [facility] DATE CREATED AUTHOR AUTHOR'S ORGANIZ ATION 11/11/2023 [facility] DATE CREATED AUTHOR AUTHOR'S ORGANIZ ATION 12/21/2023 [facility] DATE CREATED AUTHOR AUTHOR'S ORGANIZ ATION 02/29/2024 [facility] Source Comments (unrecognize d section and content) In the event this informatio n is protected by the Federal Confidentiality of Alcohol and Drug Abuse Patient Records regulations: The Federal rules restrict any use of the information to criminally investigate or prosecute any alcohol or drug abuse patient.[facility] the event this information is protected by the Federal Confidentiality of Alcohol and Drug Abuse Patient Records regulations: The Federal rules restrict any use of the information to criminally investigate or prosecute any alcohol or drug abuse patient.[facility] CenterIn the event this information is protected by the Federal Confidentiality of Alcohol and Drug Abuse Patient Records regulations: The Federal rules restrict any use of the information to criminally investigate or prosecute any alcohol or drug abuse patient.[facility] CenterIn the event this information is protected by the Federal Confidentiality of Alcohol and Drug Abuse Patient Records regulations: The Federal rules restrict any use of the information to criminally investigate or prosecute any alcohol or drug abuse patient.[facility] CenterIn the event this information is protected by the Federal Confidentiality of Alcohol and Drug Abuse Patient Records regulations: The Federal rules restrict any use of the information to criminally investigate or prosecute any alcohol or drug abuse patient.[facility] CenterIn the event this information is protected by the Federal Confidentiality of Alcohol and Drug Abuse Patient Records regulations: The Federal rules restrict any use of the information to criminally investigate or prosecute any alcohol or drug abuse patient.[facility] CenterIn the event this information is protected by the Federal Confidentiality of Alcohol and Drug Abuse Patient Records regulations: The Federal rules restrict any use of the information to criminally investigate or prosecute any alcohol or drug abuse patient.[facility] CenterIn the event this information is protected by the Federal Confidentiality of Alcohol and Drug Abuse Patient Records regulations: The Federal rules restrict any use of the information to criminally investigate or prosecute any alcohol or drug abuse patient.[facility] CenterIn the event this information is protected by the Federal Confidentiality of Alcohol and Drug Abuse Patient Records regulations: The Federal rules restrict any use of the information to criminally investigate or prosecute any alcohol or drug abuse patient.[facility] CenterIn the event this information is protected by the Federal Confidentiality of Alcohol and Drug Abuse Patient Records regulations: The Federal rules restrict any use of the information to criminally investigate or prosecute any alcohol or drug abuse patient.[facility] CenterIn the event this information is protected by the Federal Confidentiality of Alcohol and Drug Abuse Patient Records regulations: The Federal rules restrict any use of the information to criminally investigate or prosecute any alcohol or drug abuse patient.[facility] CenterIn the event this information is protected by the Federal Confidentiality of Alcohol and Drug Abuse Patient Records regulations: The Federal rules restrict any use of the information to criminally investigate or prosecute any alcohol or drug abuse patient.[facility] CenterIn the event this information is protected by the Federal Confidentiality of Alcohol and Drug Abuse Patient Records regulations: The Federal rules restrict any use of the information to criminally investigate or prosecute any alcohol or drug abuse patient.[facility] CenterIn the event this information is protected by the Federal Confidentiality of Alcohol and Drug Abuse Patient Records regulations: The Federal rules restrict any use of the information to criminally investigate or prosecute any alcohol or drug abuse patient.[facility] CenterIn the event this information is protected by the Federal Confidentiality of Alcohol and Drug Abuse Patient Records regulations: The Federal rules restrict any use of the information to criminally investigate or prosecute any alcohol or drug abuse patient.[facility] CenterIn the event this information is protected by the Federal Confidentiality of Alcohol and Drug Abuse Patient Records regulations: The Federal rules restrict any use of the information to criminally investigate or prosecute any alcohol or drug abuse patient.[facility] CenterIn the event this information is protected by the Federal Confidentiality of Alcohol and Drug Abuse Patient Records regulations: The Federal rules restrict any use of the information to criminally investigate or prosecute any alcohol or drug abuse patient.[facility] CenterIn the event this information is protected by the Federal Confidentiality of Alcohol and Drug Abuse Patient Records regulations: The Federal rules restrict any use of the information to criminally investigate or prosecute any alcohol or drug abuse patient.[facility] CenterIn the event this information is protected by the Federal Confidentiality of Alcohol and Drug Abuse Patient Records regulations: The Federal rules restrict any use of the information to criminally investigate or prosecute any alcohol or drug abuse patient.[facility] CenterIn the event this information is protected by the Federal Confidentiality of Alcohol and Drug Abuse Patient Records regulations: The Federal rules restrict any use of the information to criminally investigate or prosecute any alcohol or drug abuse patient.[facility] CenterIn the event this information is protected by the Federal Confidentiality of Alcohol and Drug Abuse Patient Records regulations: The Federal rules restrict any use of the information to criminally investigate or prosecute any alcohol or drug abuse patient.[facility] CenterIn the event this information is protected by the Federal Confidentiality of Alcohol and Drug Abuse Patient Records regulations: The Federal rules restrict any use of the information to criminally investigate or prosecute any alcohol or drug abuse patient.[facility] CenterIn the event this information is protected by the Federal Confidentiality of Alcohol and Drug Abuse Patient Records regulations: The Federal rules restrict any use of the information to criminally investigate or prosecute any alcohol or drug abuse patient.[facility] CenterIn the event this information is protected by the Federal Confidentiality of Alcohol and Drug Abuse Patient Records regulations: The Federal rules restrict any use of the information to criminally investigate or prosecute any alcohol or drug abuse patient.[facility] CenterIn the event this information is protected by the Federal Confidentiality of Alcohol and Drug Abuse Patient Records regulations: The Federal rules restrict any use of the information to criminally investigate or prosecute any alcohol or drug abuse patient.[facility] CenterIn the event this information is protected by the Federal Confidentiality of Alcohol and Drug Abuse Patient Records regulations: The Federal rules restrict any use of the information to criminally investigate or prosecute any alcohol or drug abuse patient.[facility] CenterIn the event this information is protected by the Federal Confidentiality of Alcohol and Drug Abuse Patient Records regulations: The Federal rules restrict any use of the information to criminally investigate or prosecute any alcohol or drug abuse patient.[facility] CenterIn the event this information is protected by the Federal Confidentiality of Alcohol and Drug Abuse Patient Records regulations: The Federal rules restrict any use of the information to criminally investigate or prosecute any alcohol or drug abuse patient.[facility] CenterIn the event this information is protected by the Federal Confidentiality of Alcohol and Drug Abuse Patient Records regulations: The Federal rules restrict any use of the information to criminally investigate or prosecute any alcohol or drug abuse patient.[facility] CenterIn the event this information is protected by the Federal Confidentiality of Alcohol and Drug Abuse Patient Records regulations: The Federal rules restrict any use of the information to criminally investigate or prosecute any alcohol or drug abuse patient.[facility] CenterIn the event this information is protected by the Federal Confidentiality of Alcohol and Drug Abuse Patient Records regulations: The Federal rules restrict any use of the information to criminally investigate or prosecute any alcohol or drug abuse patient.[facility] CenterIn the event this information is protected by the Federal Confidentiality of Alcohol and Drug Abuse Patient Records regulations: The Federal rules restrict any use of the information to criminally investigate or prosecute any alcohol or drug abuse patient.[facility] CenterIn the event this information is protected by the Federal Confidentiality of Alcohol and Drug Abuse Patient Records regulations: The Federal rules restrict any use of the information to criminally investigate or prosecute any alcohol or drug abuse patient.[facility] CenterIn the event this information is protected by the Federal Confidentiality of Alcohol and Drug Abuse Patient Records regulations: The Federal rules restrict any use of the information to criminally investigate or prosecute any alcohol or drug abuse patient.[facility] CenterIn the event this information is protected by the Federal Confidentiality of Alcohol and Drug Abuse Patient Records regulations: The Federal rules restrict any use of the information to criminally investigate or prosecute any alcohol or drug abuse patient.[facility] CenterIn the event this information is protected by the Federal Confidentiality of Alcohol and Drug Abuse Patient Records regulations: The Federal rules restrict any use of the information to criminally investigate or prosecute any alcohol or drug abuse patient.[facility] CenterIn the event this information is protected by the Federal Confidentiality of Alcohol and Drug Abuse Patient Records regulations: The Federal rules restrict any use of the information to criminally investigate or prosecute any alcohol or drug abuse patient.[facility] Reason for Visit (unrecogniz ed section and content) Reason Comments Received Outside Medical Records Reason Comments CARD New Patient Consult Reason Comments [facility]. She has history of surgery for scoliosis 2004 and 2005. Reason Comments Scans Reason Comments Behavioral Health/Social Work Reason Comments Well Woman Specialty Diagnoses / Procedures Referred By Edy copeland Referred To Contact Diagnoses Counseling for control regarding intrauterine device (IUD) Procedures CONSULT TO WOODEN FENCE ERECTOR OFFICE/OUTPATIENT [facility] MDM 60-74 MINUTES Ashwini Matute PA-C [address] [place] [address] Referral ID Status Reason Start Date Expiration Date Visits Requested Visits Authorized [id number] Pending Review PCP Requested Referral Auto-Generate d [...] COMPL SPEC&COLR D Jessee Hamilton MD [address] [place] [address] [facility] [address] [address] Referral ID Status Reason Start Date Expiration Date Visits Requested Visits Authorized [id number] Authorized Auto-Generat ed Referral 11/25/2022 09/04/2023 1 [...] Care Teams (unrecognized sec tion and content) Washing Machine Loader Relationship Specialty Start Date End Date Ashwini Matute PA-C [address] [place] [address] PCP - General Physician Top Steep Tender 01/11/23 Washing Machine Loader Relationship Specialty Start Date End Date Amy Ashwini Lim PA-C [address] [place] [address], [place] [address] PCP - General Physician Top Steep Tender 01/11/23 Washing Machine Loader Relationship Specialty Start Date End Date Amy Ashwini Lmi PA-C [address] [place] [address] PCP - General Physician Top Steep Tender 01/11/23 Washing Machine Loader Relationship Specialty Start Date End Date Amy Ashwini Lim PA-C [address] [place] [address], [place] [address] PCP - General Physician Top Steep Tender 01/11/23 Washing Machine Loader Relationship Specialty Start Date End Date Amy Ashwini Lim PA-C [address] [place] [address] PCP - General Physician Top Steep Tender 01/11/23 Washing Machine Loader Relationship Specialty Start Date End Date Amy Ashwini Lim PA-C [address] [place] [address] PCP - General Physician Top Steep Tender 01/11/23 Washing Machine Loader Relationship Specialty Start Date End Date Amy Ashwini Lim PA-C [address] [place] [address] PCP - General Physician Top Steep Tender 01/11/23 Washing Machine Loader Relationship Specialty Start Date End Date Amy Ashwini Lim PA-C [address] [place] [address] PCP - General Physician Top Steep Tender 01/11/23 Washing Machine Loader Relationship Specialty Start Date End Date Amy Ashwini Lim PA-C [address] [place] [address] PCP - General Physician Top Steep Tender 01/11/23 Washing Machine Loader Relationship Specialty Start Date End Date Amy Ashwini Lim PA-C [address] [place] [address] PCP - General Physician Top Steep Tender 01/11/23 Washing Machine Loader Relationship Specialty Start Date End Date AmyAshwini PA-C [address] [place] [address], [place] [address] PCP - General Physician Top Steep Tender 01/11/23 Washing Machine Loader Relationship Specialty Start Date End Date AmyAshwini PA-C [address] [place] [address], [place] [address] PCP - General Physician Top Steep Tender 01/11/23 Washing Machine Loader Relationship Specialty Start Date End Date AmyAshwini PA-C [address] [place] [address] PCP - General Physician Top Steep Tender 01/11/23 Washing Machine Loader Relationship Specialty Start Date End Date AmysAhwini PA-C [address] [place] [address] PCP - General Physician Top Steep Tender 01/11/23 Washing Machine Loader Relationship Specialty Start Date End Date AmyAshwini PA-C [address] [place] [address], [place] [address] PCP - General Physician Top Steep Tender 01/11/23 Washing Machine Loader Relationship Specialty Start Date End Date Amy Ashwini Lim PA-C [address] [place] [address] PCP - General Physician Top Steep Tender 01/11/23 Washing Machine Loader Relationship Specialty Start Date End Date Amy Ashwini Lim PA-C [address] [place] [address] PCP - General Physician Top Steep Tender 01/11/23 Washing Machine Loader Relationship Specialty Start Date End Date Amy Ashwini Lim PA-C [address] [place] [address], [place] [address] PCP - General Physician Top Steep Tender 01/11/23 Washing Machine Loader Relationship Specialty Start Date End Date AmyAshwini PA-C [address] [place] [address], [place] [address] PCP - General Physician Top Steep Tender 01/11/23 Washing Machine Loader Relationship Specialty Start Date End Date AmyAshwini PA-C [address] [place] [address] PCP - General Physician Top Steep Tender 01/11/23 Washing Machine Loader Relationship Specialty Start Date End Date Amy Ashwini Lim PA-C [address] [place] [address] PCP - General Physician Top Steep Tender 01/11/23 Washing Machine Loader Relationship Specialty Start Date End Date Amy Ashwini Lim PA-C [address] [place] [address], [place] [address] PCP - General Physician Top Steep Tender 01/11/23 Washing Machine Loader Relationship Specialty Start Date End Date Ashwini Matute PA-C [address] [place] [address] PCP - General Physician Top Steep Tender 01/11/23 Washing Machine Loader Relationship Specialty Start Date End Date Ashwini Matute PA-C [address] [facility] [address] [place] [address] PCP - General 02/10/23 Washing Machine Loader Relationship Specialty Start Date End Date Ashwini Matute PA-C [address] [facility] [address] [place] [address] PCP - General 02/10/23 Team Status: Active [...] BE BASED ON THE PRIMARY CLINICAL RECORDS. [facility] [employer] [facility] provides no warranty or guarantee of the accuracy or completeness of information in this document.
[2024-04-02 11:11] VITALS: BP 130/90; PULSE 83; TEMP 37.7; O2SAT 100
[2024-04-02 11:16] LABS: HCG Quantitative <1 mIU/mL
[2024-04-02 11:49] VITALS: BP 182/87; PULSE 72; O2SAT 96
[2024-04-02 11:51] VITALS: BP 127/69; PULSE 76; O2SAT 96
[2024-04-02] MEDS: 0.9 % SODIUM CHLORIDE 10 ML SYRINGE - SALINE FLUSH 2 ML INJ (11:51)
[2024-04-02] MEDS: TRIAMCINOLONE ACETONIDE 40 MG/ML VIAL 80 MG INJ (11:52)
[2024-04-02] MEDS: BUPIVACAINE HCL 0.25% PF 25 MG/10 ML VIAL 2 ML INJ (11:52)
[2024-04-02] MEDS: LIDOCAINE HCL 2% PF 100 MG/5 ML VIAL 4 ML INJ (11:52)
--- NOTE | 2024-04-02 11:54 | W.PM.PROCNOT ---
Date of procedure: 04/02/24 Pre-op diagnosis: Right sciatica Post-op diagnosis: same as pre-op Procedure: Procedure: Right distal sciatic nerve block at the popliteal fossa Medications: Bupivacaine 0.25% 4cc, kenalog 40mg After informed consent was obtained and placed on the chart, the patient was brought to the medical procedures unit and placed in the prone position.? A timeout was completed verifying correct patient, procedure, site, positioning, and planned special equipment.? The area overlying the right popliteal fossa was prepped and draped using aseptic technique. Ultrasound guidance was used to find the distal sciatic nerve, just before it branches into the tibial and common peroneal nerves. A 22-gauge, 4-inch Stimuplex needle with active tip was advanced through a skin wheal raised with 2% lidocaine in the area overlying the site of insertion. The needle was advanced until it abutted the sciatic nerve. A test injection was given with 1cc of the above solution, which showed appropriate spread around the sciatic nerve. ? The above-mentioned injectate was placed in three 1 mL aliquots preceded by negative aspiration without sequelae.? The needle was removed.? The needle insertion site was covered.? The patient was taken to the postprocedural recovery area and monitored for the appropriate length of time, and when the patient was found suitable for discharge in the accompaniment of a responsible adult. Anesthesia: Local Surgeon: Chucky Hernandez Pathology: none sent Condition: stable Disposition: no change
== END 2024-04-02 11:58 | disposition home or self-care (01) ==
LOC: SURGOUT 10:37
PROVIDERS: Visit Provider Anesthesiology
DX: M54.31 Sciatica, right side (principal)
CPT/HCPCS: 36415; 64445; 76942; 84702; 84703; J0665; J3301

== ENCOUNTER 2024-04-09 13:26 | Outpatient (OUT) | payer OTHER, SELFPAY ==
--- NOTE | 2024-04-09 15:09 | P.CN_ITS ---
Consult Note: HPI Data of Consult Patient: known to practice within the last 3 years Consult date: 04/09/24 Requesting Physician: Chucky Hernandez MD Primary Care Provider: Justo Mendez Consult Narrative Reason for consult: right foot pain Narrative: 34yof who presents for assessment. continues to have pain down into right foot. uses gabapentin and lyrica. denies adverse med side effects. cc:: CC: Chucky Hernandez MD Review of Systems ROS Status of ROS 10 or more systems reviewed and unremark able except as noted in history and below [facility] Medical History (Updated 02/27/24 @ 07:30 by Huma Dunne) Scoliosis ?M41.9 - Scoliosis, unspecified (ICD-10) H/O scoliosis ?Z87.39 - Personal history of other diseases of the musculoskeletal system and connective tissue (ICD-10) Atrial fibrillation ?I48.91 - Unspecified atrial fibrillation (ICD-10) Irregular heart beat ?I49.9 - Cardiac arrhythmia, unspecified (ICD-10) Meds Home Medications and Allergies Home Medications ?Medication ?Instructions ?Recorded ?Confirmed ?Type bupropion HCl 150 mg tablet,12 hr 150 mg PO DAILY 09/26/23 04/02/24 History sustained-release (Wellbutrin SR) dextroamphetamine-amphetamine 10 10 mg PO DAILY 09/26/23 04/02/24 History mg tablet (Adderall) dextroamphetamine-amphetamine ER 30 mg PO DAILY 09/26/23 04/02/24 History 30 mg 24hr capsule,extend release (Adderall XR) escitalopram oxalate 20 mg tablet 20 mg PO DAILY 09/26/23 04/02/24 History (Lexapro) ibuprofen 800 mg tablet 800 mg PO DAILY PRN pain 09/26/23 04/02/24 History metoprolol tartrate 25 mg tablet 25 mg PO Q12H 09/26/23 04/02/24 History gabapentin 600 mg tablet 1,200 mg (2 x 600 mg) PO TID #180 12/15/23 04/02/24 Rx tabs pregabalin 75 mg capsule (Lyrica) 100 mg PO TID 04/09/24 04/09/24 History Allergies Allergy/AdvReac Type Severity Reaction Status Date / Time No Known Drug Allergies Allergy Verified 04/02/24 11:10 Exam Narrative Exam Narrative: Psych-alert and oriented x 3. Attentive and appropriate, constitutionally normal, displays normal mood and affect per situation. There are no obvious deficits in memory, reasoning, or intellect.? Skin-no obvious rashes, bruising, erythema noted to the patient's area of pain.? Extremities- extremities are warm with minimal edema and palpable pulses. Lumbar-tenderness to palpation noted in the lumbar spine and paraspinal musculature. Pain is not elicited with flexion, extension, and lateral rotation of the lumbar spine. Range of motion is not diminished with these motions. Facet loading maneuvers are negative.? Strength-noted to be unremarkable with the exception of decreased strength rated at 4 out of 5 in right anterior tibialis, posterior tibialis. Sensory-no notable sensory deficits in the bilateral lower extremities to touch or pinprick in all dermatomal distributions with the exception to decreased sensation to the right L5, S1 dermatomal distribution Coordination remains intact.? Gait remains non-antalgic. Assessment and Plan Assessment and Plan (1) Lumbar postlaminectomy syndrome: (2) Lumbar stenosis with neurogenic claudication: Plan 34yof who presents for assessment. continues to have pain into right foot. 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 i would like her to undergo thoracic and lumbar XR for further info. discussed possibility of spinal cord stimulator trial, and she is interested in pursuing this. will have her undergo xrays initially. medications reviewed. has been on gabapentin 1200mg tid and lyrica 75mg tid for several years. will increase lyrica to 100mg tid. she is in agreement. still waiting for emg to be done, as nearby neuro clinic does not accept her insurance. follow up in 1 month.
== END 2024-04-09 13:27 | disposition home or self-care (01) ==
PROVIDERS: Visit Provider Anesthesiology
DX: M96.1 Postlaminectomy syndrome, not elsewhere classified (principal); M48.062 Spinal stenosis, lumbar region with neurogenic claudication
CPT/HCPCS: G0463

== ENCOUNTER 2024-05-11 12:25 | Outpatient (OUT) | payer OTHER, SELFPAY ==
--- NOTE | 2024-05-11 12:34 | XR_ITS ---
[facility] [place] [id number] Patient Name: SHASHANK MORSE MRN: [id number] date: 1990 Sex: F Assigned Patient Location: [facility] Current Patient Location: Accession/Order Number: [id number] Exam Date: 05/11/2024 12:40 Report Date: 05/13/2024 07:46 At the request of: LIBAN MCPHERSONRACAREN Procedure: XR lumbar spine min 4V EXAMINATION: XR lumbar spine min 4V, XR thoracic spine 2V HISTORY: Lumbar post Lami COMPARISON: No relevant comparison available. FINDINGS: BONES: S-shaped rotatory scoliosis of the thoracolumbar spine with thoracic dextrocurvature and lumbar levocurvature. Posterior spinal fixation utilizing transpedicular screws and rods extending from T2 to L5. Bone graft material in the lumbar spine. No acute fracture, spondylolisthesis or mechanical failure DISC SPACES: Multilevel moderate to severe disc space narrowing most significant in the lumbar spine PARASPINOUS: Negative. No paraspinous abnormality is seen. OTHER: Negative. XR/XR lumbar spine min 4V IMPRESSION: S-shaped scoliosis with thoracolumbar fixation hardware. No mechanical failure Electronically authenticated by: LESTER CUNNINGHAM Date: 05/13/2024 07:46
--- NOTE | 2024-05-11 12:34 | XR_ITS ---
[facility] [place] [id number] Patient Name: SHASHANK MORSE MRN: [id number] date: 1990 Sex: F Assigned Patient Location: [facility] Current Patient Location: Accession/Order Number: [id number] Exam Date: 05/11/2024 12:40 Report Date: 05/13/2024 07:46 At the request of: LIBAN MCPHERSONRACAREN Procedure: XR thoracic spine 2V EXAMINATION: XR lumbar spine min 4V, XR thoracic spine 2V HISTORY: Lumbar post Lami COMPARISON: No relevant comparison available. FINDINGS: BONES: S-shaped rotatory scoliosis of the thoracolumbar spine with thoracic dextrocurvature and lumbar levocurvature. Posterior spinal fixation utilizing transpedicular screws and rods extending from T2 to L5. Bone graft material in the lumbar spine. No acute fracture, spondylolisthesis or mechanical failure DISC SPACES: Multilevel moderate to severe disc space narrowing most significant in the lumbar spine PARASPINOUS: Negative. No paraspinous abnormality is seen. OTHER: Negative. XR/XR thoracic spine 2V IMPRESSION: S-shaped scoliosis with thoracolumbar fixation hardware. No mechanical failure Electronically authenticated by: LESTER CUNNINGHAM Date: 05/13/2024 07:46
== END 2024-05-11 12:26 | disposition home or self-care (01) ==
LOC: RAD 12:28
PROVIDERS: Visit Provider Anesthesiology
DX: M41.9 Scoliosis, unspecified (principal); Z98.890 Other specified postprocedural states
CPT/HCPCS: 72070; 72110

== ENCOUNTER 2024-05-14 13:05 | Outpatient (OUT) | payer OTHER, SELFPAY ==
--- NOTE | 2024-05-14 13:38 | PM.CN ---
Consult Note: HPI Data of Consult Patient: known to practice within the last 3 years Consult date: 05/14/24 Requesting Physician: Chucky Hernandez MD Primary Care Provider: Justo Mendez Consult Narrative Reason for consult: right leg pain Narrative: 34yof who presents for assessment. continues to have low back pain into right leg. recent imaging shows multilevel degenerative changes. she is fused from T2 to L5. continues lyrica, with some benefit. cc:: CC: Chucky Hernandez MD Review of Systems ROS Status of ROS 10 or more systems reviewed and unremarkable except as noted in history and below [facility] Medical History (Updated 02/27/24 @ 07:30 by Huma Dunne) Scoliosis ?M41.9 - Scoliosis, unspecified (ICD-10) H/O scoliosis ?Z87.39 - Personal history of other diseases of the musculoskeletal system and connective tissue (ICD-10) Atrial fibrillation ?I48.91 - Unspecified atrial fibrillation (ICD-10) Irregular heart beat ?I49.9 - Cardiac arrhythmia, unspecified (ICD-10) Meds Home Medications and Allergies Home Medications ?Medication ?Instructions ?Recorded ?Confirmed ?Type bupropion HCl 150 mg tablet,12 hr 150 mg PO DAILY 09/26/23 04/02/24 History sustained-release (Wellbutrin SR) dextroamphetamine-amphetamine 10 10 mg PO DAILY 09/26/23 04/02/24 History mg tablet (Adderall) dextroamphetamine-amphetamine ER 30 mg PO DAILY 09/26/23 04/02/24 History 30 mg 24hr capsule,extend release (Adderall XR) escitalopram oxalate 20 mg tablet 20 mg PO DAILY 09/26/23 04/02/24 History (Lexapro) ibuprofen 800 mg tablet 800 mg PO DAILY PRN pain 09/26/23 04/02/24 History metoprolol tartrate 25 mg tablet 25 mg PO Q12H 09/26/23 04/02/24 History gabapentin 600 mg tablet 1,200 mg (2 x 600 mg) PO TID #180 12/15/23 04/02/24 Rx tabs pregabalin 75 mg capsule (Lyrica) 100 mg PO TID 04/09/24 04/09/24 History Allergies Allergy/AdvReac Type Severity Reaction Status Date / Time No Known Drug Allergies Allergy Verified 04/02/24 11:10 Exam Narrative Exam Narrative: Psych-alert and oriented x 3. Attentive and appropriate, constitutionally normal, displays normal mood and affect per situation.? There are no obvious deficits in memory, reasoning, or intellect.? Skin-no obvious rashes, bruising, erythema noted to the patient's area of pain. Extremities- extremities are warm with minimal edema and palpable pulses. Lumbar-no significant tenderness to palpation noted in the lumbar spine and paraspinal musculature.? Pain is elicited with extension, and lateral rotation of the lumbar spine. Range of motion is slightly diminished with these motions due to pain. Facet loading maneuvers are positive bilaterally and do appear to be concordant with the patient's normal complaints of pain.? Coordination remains intact.? Gait remains non-antalgic. Assessment and Plan Assessment and Plan (1) Lumbar postlaminectomy syndrome: (2) Lumbar stenosis with neurogenic claudication: Plan 34yof who presents for assessment. continues to have significant pain into right leg. discussed with her that given her failure to respond to conservative measures, she may be a candidate for drg stimulator. since we do not do that here, will send out to [facility]. she is in agreement. meds reviewed, will continue lyrica. follow up in 6 months.
== END 2024-05-14 13:06 | disposition home or self-care (01) ==
LOC: PM 13:06
PROVIDERS: Visit Provider Anesthesiology
DX: M96.1 Postlaminectomy syndrome, not elsewhere classified (principal); M48.062 Spinal stenosis, lumbar region with neurogenic claudication
CPT/HCPCS: G0463

== ENCOUNTER 2024-11-05 13:30 | Outpatient (OUT) | payer OTHER, SELFPAY ==
--- NOTE | 2024-11-05 14:32 | P.CN_ITS ---
Consult Note: HPI Data of Consult Patient: known to practice within the last 3 years Consult date: 11/05/24 Requesting Physician: Chucky Hernandez MD Primary Care Provider: Justo Mendez Consult Narrative Reason for consult: foot pain Narrative: 34yof who presents for assessment. continues to have foot pain, but treated well with gabapentin and lyrica. has drg stim trial scheduled in a few days. denies adverse med side effects. cc:: CC: Chucky Hernandez MD Review of Systems ROS Status of ROS 10 or more systems reviewed and unremark able except as noted in history and below [facility] Medical History Scoliosis ?M41.9 - Scoliosis, unspecified (ICD-10) H/O scoliosis ?Z87.39 - Personal history of other diseases of the musculoskeletal system and connective tissue (ICD-10) Atrial fibrillation ?I48.91 - Unspecified atrial fibrillation (ICD-10) Irregular heart beat ?I49.9 - Cardiac arrhythmia, unspecified (ICD-10) Meds Home Medications and Allergies Home Medications ?Medication ?Instructions ?Recorded ?Confirmed ?Type bupropion HCl 150 mg tablet,12 hr 150 mg PO DAILY 09/26/23 04/02/24 History sustained-release (Wellbutrin SR) dextroamphetamine-amphetamine 10 10 mg PO DAILY 09/26/23 04/02/24 History mg tablet (Adderall) dextroamphetamine-amphetamine ER 30 mg PO DAILY 09/26/23 04/02/24 History 30 mg 24hr capsule,extend release (Adderall XR) escitalopram oxalate 20 mg tablet 20 mg PO DAILY 09/26/23 04/02/24 History (Lexapro) ibuprofen 800 mg tablet 800 mg PO DAILY PRN pain 09/26/23 04/02/24 History metoprolol tartrate 25 mg tablet 25 mg PO Q12H 09/26/23 04/02/24 History gabapentin 600 mg tablet 1,200 mg (2 x 600 mg) PO TID #180 12/15/23 04/02/24 Rx tabs pregabalin 75 mg capsule (Lyrica) 100 mg PO TID 04/09/24 04/09/24 History gabapentin 600 mg tablet 600 mg PO TID #180 tabs 08/07/24 Rx pregabalin 100 mg capsule (Lyrica) 100 mg PO TID #90 caps 08/07/24 Rx gabapentin 600 mg tablet 1,200 mg (2 x 600 mg) PO TID #180 08/22/24 Rx tabs Allergies Allergy/AdvReac Type Severity Reaction Status Date / Time No Known Drug Allergies Allergy Verified 04/02/24 11:10 Exam Narrative Exam Narrative: Psych-alert and oriented x 3. Attentive and appropriate, constitutionally normal, displays normal mood and affect per situation.? There are no obvious deficits in memory, reasoning, or intellect.? Skin-no obvious rashes, bruising, erythema noted to the patient's area of pain. Extremities- extremities are warm with minimal edema and palpable pulses. Lumbar-no significant tenderness to palpation noted in the lumbar spine and paraspinal musculature.? Pain is elicited with extension, and lateral rotation of the lumbar spine. Range of motion is slightly diminished with these motions due to pain. Coordination remains intact.? Gait remains non-antalgic. Assessment and Plan Assessment and Plan (1) Lumbar postlaminectomy syndrome: Plan 34yof who presents for assessment. continues to do well with her current medication regimen. has drg stim trial scheduled in a few days[place], but discussed that could still see her every 6 months if she would like. follow up in 6 months.
== END 2024-11-05 13:31 | disposition home or self-care (01) ==
LOC: PM 13:32
PROVIDERS: Visit Provider Anesthesiology
DX: M96.1 Postlaminectomy syndrome, not elsewhere classified (principal)
CPT/HCPCS: G0463

== ENCOUNTER 2025-05-09 14:56 | Outpatient (OUT) | payer OTHER, SELFPAY ==
--- NOTE | 2025-05-09 15:15 | PM.CN ---
Consult Note: HPI Data of Consult Patient: known to practice within the last 3 years Consult date: 11/05/24 Requesting Physician: Chucky Hernandez MD Primary Care Provider: Justo Mendez Consult Narrative Reason for consult: foot pain Narrative: 35yof who presents for assessment. continues to have foot pain, but treated well with gabapentin and lyrica. underwent drg stim trial with significant improvement, pending permanent implant with [facility]. denies adverse med side effects. cc:: CC: Chucky Hernandez MD [facility] Medical History Scoliosis ?M41.9 - Scoliosis, unspecified (ICD-10) H/O scoliosis ?Z87.39 - Personal history of other diseases of the musculoskeletal system and connective tissue (ICD-10) Atrial fibrillation ?I48.91 - Unspecified atrial fibrillation (ICD-10) Irregular heart beat ?I49.9 - Cardiac arrhythmia, unspecified (ICD-10) Meds Home Medications and Allergies Home Medications ?Medication ?Instructions ?Recorded ?Confirmed ?Type bupropion HCl 150 mg tablet,12 hr 150 mg PO DAILY 09/26/23 04/02/24 History sustained-release (Wellbutrin SR) dextroamphetamine-amphetamine 10 10 mg PO DAILY 09/26/23 04/02/24 History mg tablet (Adderall) dextroamphetamine-amphetamine ER 30 mg PO DAILY 09/26/23 04/02/24 History 30 mg 24hr capsule,extend release (Adderall XR) escitalopram oxalate 20 mg tablet 20 mg PO DAILY 09/26/23 04/02/24 History (Lexapro) ibuprofen 800 mg tablet 800 mg PO DAILY PRN pain 09/26/23 04/02/24 History metoprolol tartrate 25 mg tablet 25 mg PO Q12H 09/26/23 04/02/24 History gabapentin 600 mg tablet 1,200 mg (2 x 600 mg) PO TID #180 12/15/23 04/02/24 Rx tabs pregabalin 75 mg capsule (Lyrica) 100 mg PO TID 04/09/24 04/09/24 History gabapentin 600 mg tablet 600 mg PO TID #180 tabs 08/07/24 Rx pregabalin 100 mg capsule (Lyrica) 100 mg PO TID #90 caps 08/07/24 Rx gabapentin 600 mg tablet 1,200 mg (2 x 600 mg) PO TID #180 08/22/24 Rx tabs gabapentin 600 mg tablet 1,200 mg (2 x 600 mg) PO TID #180 04/02/25 Rx tabs pregabalin 100 mg capsule (Lyrica) 100 mg PO TID #90 caps 04/02/25 Rx Allergies Allergy/AdvReac Type Severity Reaction Status Date / Time No Known Drug Allergies Allergy Verified 04/02/24 11:10 Exam Narrative Exam Narrative: Psych-alert and oriented x 3. Attentive and appropriate, constitutionally normal, displays normal mood and affect per situation.? There are no obvious deficits in memory, reasoning, or intellect.? Skin-no obvious rashes, bruising, erythema noted to the patient's area of pain. Extremities- extremities are warm with minimal edema and palpable pulses. Lumbar-no significant tenderness to palpation noted in the lumbar spine and paraspinal musculature.? Pain is elicited with extension, and lateral rotation of the lumbar spine. Range of motion is slightly diminished with these motions due to pain. Coordination remains intact.? Gait remains non-antalgic. Constitutional Documenting provider has reviewed patient's vital signs: yes Common normals: no apparent distress, oriented x3, healthy appearing, alert and well nourished General appearance: cooperative HENMT Common normals: normocephalic, hearing grossly normal bilaterally and moist oral mucous membranes Head and scalp: normocephalic Eye Common normals: PERRL Pupil: PERRL Neck & C-Spine Common normals: full ROM General: normal visual inspection Chest Common normals: inspection of chest normal Respiratory Common normals: normal respiratory effort, no retractions and no use of accessory muscles Neuro Common normals: oriented x3 Sensorium/orientation: alert Psych Common normals: mental status grossly normal, thought process normal, cooperative, affect normal, speech normal and activity/motor behavior normal Speech: normal speech Thought process: normal thought process Results Additional Findings Additional findings: If on a controlled substance or opioids, I have checked an [place] report on this patient and there are no aberrancies noted in the prescribing history.??If on a controlled substance or opioid a drug screen was completed and reviewed within the last year, and if there has not been a drug screen completed we ordered one today to monitor higher risk, state monitored pain medication use. As part of providing excellent, safe, comprehensive care, the following was completed at our patient's visit: 1. A medication reconciliation and review to ensure accurate knowledge of current/active medications, including asking our patients to inform us about any [id number] medications or herbal remedies/nutritional supplements/alternative remedies. 2. A review to specifically ensure our patients have had annual screening for screening for depression, screening for tobacco use, and screening for unhealthy alcohol use. For concerning screenings had a discussion with the patient, provided patient education, and recommended follow-up with primary care provider when appropriate. If patient noted with a risk of falling, they received education on strength, gait, and balance training to prevent future risk of falling. Portions of this note may have been carried over from the previous visit and updated as appropriate. Please note this office utilizes paper charting in addition to the electronic medical record. A list of current medications, vitals, and PMH is available there as the clinical staff outside of myself do not have access to [facility] charting during the clinic day operations. As part of providing quality comprehensive care the current medications, vitals, and PMH were reviewed in the paper chart. Assessment and Plan Assessment and Plan (1) Lumbar postlaminectomy syndrome: Plan 34yof who presents for assessment. continues to do well with her current medication regimen. pending drg implant. continue current medications. f/u 6 months, sooner if needed. pt advised to call once drg implant completed
--- OUTSIDE RECORDS SUMMARY | 2025-05-09 15:47 | XMS_ITS | CCD ---
Author Organization [facility] Care Team Providers Care Technical Sales Representative Name Role Phone BEN DIAZ Attending Unavailable Unavailable Primary Care Provider Ashwini Verdin PA-C Primary Care Provid er Update Needed Unavailable Unavailable Unavailable Unavailable Ashwini Matute Unavailable MD TERRIE BROWN Referring UnavailMD TERRIE Ramos Admitting UnavailDINA Powell Attending Unavailable Amy, Ms. Ashwini Guerrero Primary Care Un available MD TERRIE BROWN Attending Unavailterry whitmore Self, Referral Referring Unavailable Amy, Ms. Ashwini Guerrero Primary Care Un available MD TERRIE BROWN Attending Unavailterry Matute, Ms. Ashwini Guerrero Primary Care Un available Ashwini Matute PA-C Primary Care Prov ider TERRIE BROWN Attending Unavailable ASHWINI MATUTE Primary Care Unavai lable NO FAMILY, PHYSICIAN Primary Care Provider Unava ilable SAUL Townsend Attending Provider Lorie Townsend Unavailable KIANA GAUTHIER Attending Unavailable BOBO VIGIL Attending Unavailable Ashwini Matute PA-C Primary Care Provid er David ROSE, Ewari Unavailable Lorie Townsend Admitting Unavailable Lorie Townsend Attending Unavailable NO FAMILY, PHYSICIAN Primary Care Unavailable Maine Reno PA-C Unavailable HUMA CROWDER Attending Unavailab le HERNÁN, SHRIF Referring Unavailable ASHWINI MATUTE Primary Care Unavaila Savannah Boucher CNP Primary Care Provider David ROSE, Andanirudh Landaverde Attending Unavailable Gicalixtoitis , Andrius Landaverde Attending Unavailable Gicalixtoitis , Andrius Akhil Attending Unavailable David ROSE, Andrius Akhil Attending Unavailable David ROSE, Andrius Akhil Attending Unavailable ASHWINI MATUTE Primary Care Unavaila DILEEP Camacho Attending Unavailable SAVANNAH ROGER Primary Care Unavailab vonda JIM, SHRIF Admitting Unavailable EULALIANDI, SHRIF Attending Unavailable ASHWINI MATUTE Primary Care Unavaila ERLINDA Hernandez Attending Unavailable ERLINDA FRIEND Referring Unavailable SAVANNAH ROGER Primary Care Unavailab le Medications Current Medications Medication Drug Class(es) Dates Sig (Normalized) Sig (Original) acetaminophen 325 mg / oxyCODONE hydrochloride 5 mg oral tablet (1 source) Opioid Agonist Start: 12-15-2022 take 1 tablet by mouth twice daily as needed for pain oxyCODONE-acetamino phen (Percocet) 5-325 mg tablet take 1 tablet by mouth twice a day NEEDED FOR PAIN 0 12/15/2022 Active atomoxetine 100 mg oral capsule (9 sources) Norepinephrine Reuptake Inhibitor Start: 07-23-2013 End: 09-27-2022 atomoxetine (Strattera) 100 mg capsule Strattera 100 MG Oral Capsule Quantity: 30 Refills: 0 Start : 23-Jul-2013 Active 0 07/23/2013 Active Comment on above: TAKE 1 CAPSULE DAILY IN THE MORNING baclofen 20 mg oral tablet (1 source) gamma-Aminobutyric Acid-ergic Agonist Start: 10-18-2022 take 1 tablet by mouth three times daily for muscle spasms baclofen (Lioresal) 20 mg tablet take 1 tablet by mouth three times a day if needed for SPASM(S) 0 10/18/2022 Active Benfotiamine (1 source) Benfotiamine Act josh cyclobenzaprine hydrochloride 10 mg oral tablet (7 [...] mouth once daily. 90 tablet 1 05/26/2023 Active Start: 02-22-2023 End: 05-26-2023 take 1 [...] Take 1 tablet by amrita once daily. TAKE 1 TABLET DAILY 0.5 tab daily for 1 week then 1 tab daily gabapentin 600 mg oral tablet (20 sources) Anti-epileptic Agent Start: 01-11-2023 End: 07-16-2023 take 2 tablets by mouth three times daily gabapentin (NEURONTIN) 600 mg tablet Take 2 tablets by mouth three times a day for 30 days. 180 tablet 06/16/2023 Active Start: 12-11-2012 gabapentin (NE URONTIN) 800 mg tablet TAKE 1 TABLET THREE TIMES A DAY 270 tablet 2 09/29/2014 Active Start: 12-11-2012 Gabapentin 800 MG Oral Tablet Quantity: 90 Refills: 0 Ordered: 11-Dec-2012 DO Start : 11-Dec-2012 Active take 1 tablet by amrita every twenty-four hours Gabapentin 600 MG 1 tablet Orally Once a day Active Comment on above: TAKE 1 TABLET THREE TIMES A DAY Take 2 tablets by [facility] three times daily for 30 days. Take 2 tablets by mo [facility] three times a day for 30 [...] BACK OF FOIL PACK 0 12/27/2022 Active metoprolol tartrate 25 mg oral tablet (20 [...] on above: Take 1 tablet by amrita twice daily. take 1 tablet by amrita twice a day miSOPROStol 0.2 mg oral tablet (4 sources) [...] the second pill 8-10 hours prior to CUSTOM HARVESTER appt for cervical dilation. 2 tablet 0 02/03/2023 02/04/2023 Discontinued Comment on above: 1 tablet as directed . Take by mouth 2 days prior to appt, and the second pill 8-10 hours prior to CUSTOM HARVESTER appt for cervical dilation. 1 tablet as directed for 2 doses. Take by mouth 2 days prior to appt, and the second pill 8-10 hours prior to CUSTOM HARVESTER appt for cervical dilation. perflutren lipid microspheres 1.3 mL in NaCl (PF) 0.9% 10 mL injection (DEFINITY) (20 sources) Start: 09-27-2022 End: 12-27-2023 perflutren lipid microspheres 1.3 mL in NaCl (PF) 0.9% 10 mL injection (DEFINITY) probiotic (1 source) probiotic Active 125 ml [...] day NEEDED FOR PAIN 0 01/10/2023 Active Vitamin D (1 source) Vitamin D Active Completed/Discontinued Medications Medication Drug Class(es) Dates Sig (Normalized) Sig (Original) amphetamine aspartate 2.5 mg / amphetamine sulfate 2.5 mg / dextroamphetamine saccharate 2.5 mg / dextroamphetamine sulfate 2.5 mg oral tablet (20 sources) Central Nervous System Stimulant Start: 07-26-2023 End: 08-14-2024 take 1 tablet by mouth once dextroamphetamine- amphetamine (ADDERALL) 10 mg tablet Indications: Attention deficit hyperactivity disorder (ADHD), unspecified ADHD type Take 1 tablet by mouth every afternoon for 30 days. Do not start before July 26, 2023. 30 tablet 07/26/2023 08/14/2024 Discontinued Start: 07-18-2023 End: 05-26-2023 take 1 tablet [...] every afternoon for 30 days. 30 tablet 05/26/2023 Active Start: 02-17-2023 End: 06-22-2023 take 1 capsule by mouth once daily amphetamine-dextroamphetamine XR (ADDERA LL XR) 30 mg capsule Indications: Attention deficit hyperactivity disorder (ADHD), unspecified ADHD type Take 1 capsule by mouth once daily for 30 days. 30 capsule 05/23/2023 Active Start: 02-12-2023 amphetamine-de xtroamphetamine (Adderall) 10 mg tablet Start: 09-19-2022 End: 02-10-2023 take 1 capsule by mouth once daily ADDERALL XR 30 mg 24 hr capsule Take 30 mg by mouth once daily. 0 09/19/2022 02/10/2023 Discontinued Comment on above: Take 30 mg by mouth once daily. Take 10 mg by mouth every afternoon. Take 1 capsule by mo [facility] once daily for 30 days. Take 1 [...] Do not start before July 26, 2023. apixaban 5 mg oral tablet (9 sources) Factor Xa Inhibitor Start: 08-23-2022 End: 09-27-2022 take 1 tablet by mouth twice daily apixaban (ELIQUIS) 5 mg tab(s) Take 1 tablet by mouth twice daily. 60 tablet 0 08/23/2022 09/27/2022 Discontinued Start: 07-24-2022 take 2 tablets by mo [facility] twice daily, then take 1 tablet by [...] Take 1 tablet by amrita twice daily. aspirin 325 mg oral tablet (9 sources) Platelet Aggregation Inhibitor, Nonsteroidal Anti-inflammatory Drug End: 12-10-202 4 take 1 capsule by mouth once daily aspirin 325 mg cap Take 1 capsule by mouth once daily. 08/14/2024 Discontinued take 1 tablet by amrita th every twenty-four hours Aspirin 81 MG 1 tablet Orally Once a day Active Comment on above: Take 1 capsule by mo [facility] once daily. 24 hr buPROPion hydrochloride 150 mg extended release oral tablet (20 sources) Aminoketone Start: 3 End: 4 take 1 tablet by mouth once daily buPROPion XL (WELLBUTRIN XL) 150 mg 24 hr tablet Take 1 tablet by mouth once daily. 30 tablet 2 06/16/2023 08/14/2024 Discontinued take 1 tablet by mouth once luz y buPROPion XL (WELLBUTRIN XL) 300 mg 24 hr tablet Take 300 mg by mouth once daily. Active take 1 tablet by amrita th every twenty-four hours Wellbutrin SR 150 MG 1 tablet in the mor emeka Orally Once a day Active Comment on above: Take 1 tablet by amrita once daily. take 1 tablet by amrita once daily ergocalciferol 1.25 mg oral capsule (20 sources) Provitamin D2 Compound Start: 02-23-20 23 End: 08-14-20 24 take 1 capsule by mouth every week ergocalciferol 50,000 unit capsule (VITAMIN D2, DRISDOL) Take 1 capsule by mouth one time a week. 4 capsule 7 06/16/2023 08/14/2024 Discontinued Start: 02-24-2015 End: 09-27-2022 VITAMIN D 50,000 unit capsul e TAKE 1 CAPSULE ONCE A WEEK 12 capsule 2 02/24/2015 09/27/2022 Discontinued Start: 09-26-2013 take 1 capsule by mouth once V itamin D (Ergocalciferol) 1.25 MG (95678 UT) Oral Capsule Quantity: 12 Refills: 0 Ordered: 26-Sep-2013 DO Start : 26-Sep-2013 Active take 1 capsule by mo [facility] every week ergocalciferol (Vitamin D-2) 1.25 MG (14760 UT) capsule Take 1 capsule (1,250 mcg) by mouth 1 (one) time per week. 0 Active Comment on above: TAKE 1 CAPSULE ONCE A WEEK Take 1 capsule by mo [facility] one time a week. pregabalin 50 mg oral capsule (20 sources) Start: 01-11-2023 End: 08-14-2024 take 1 capsule by mouth three times daily pregabalin (LYRICA) 50 mg capsule Indications: Juvenile idiopathic scoliosis of thoracolumbar region , Neuropathy Take 1 capsule by mouth three times daily for 90 days. 90 capsule 2 05/30/2023 08/14/2024 Discontinued Start: 11-10-2022 take 1 capsule by mo uth once daily pregabalin (LYRICA) 50 mg capsule Take 1 capsule by mouth once daily. 0 11/10/2022 Active take 1 capsule by mo uth every eight hours as needed pregabalin (LYRICA) 100 mg capsule Take 100 mg by mouth three times a day as needed. Active take 1 capsule by mo uth [...] uth three times daily for 90 days. vitamin b12 1 mg/ml injectable solution (20 sources) Vitamin B12 End: 08-14-20 inject 1000 ug by intramuscular injection every month cyanocobalamin 1,000 mcg/mL Inject 1,000 mcg intramuscularly once every month. 08/14/2024 Discontinued Vitamin B12 Acti ve Comment on above: Inject 1,000 mcg int ramuscularly once every month. Problems Active Problems Problem Classification Problem Date Documented Date Episodic/Chronic Abdominal pain (8 sources) Pain in female pelvis; Translations: [Unspecified symptom associated with female genital organs] Onset: 06-15-2023 06-15-2023 Episodic Alcohol-related disorders (1 source) Alcohol abuse; Translations: [Alcohol abuse, uncomplicated] 05-26-2023 Chronic Anxiety disorders (6 sources) Anxiety; Translations: [Anxiety state, unspecified] Chronic Attention-deficit, conduct, and disruptive behavior disorders (11 sources) Attention deficit hyperactivity disorder; Translations: [Attention-deficit hyperactivity disorder, unspecified type] Chronic Cardiac dysrhythmias (20 sources) Unspecified atrial fibrillation; Translations: [Paroxysmal atrial fibrillation] Onset: 07-24-2022 Chronic Cardiac dysrhythmias (4 sources) Palpitations; Translations: [Palpitations] Onset: 07-24-2022 Episodic Contraceptive and procreative management (1 source) Contraception status; Translations: [Encounter for other general counseling and advice on contraception] Episodic Immunizations and screening for infectious disease (1 source) Patient encounter status; Translations: [Encounter for immunization] 05-26-2023 Episodic Miscellaneous mental health disorders (2 sources) Pain disorder with psychological factor; Translations: [Pain disorder with related psychological factors] Onset: 10-08-2024 10-09-2024 Chronic Mood disorders (2 sources) Recurrent major depressive episodes, mild ; Translations: [Major depressive disorder, recurrent, mild] Chronic Nutritional deficiencies (1 source) Vitamin D deficiency; Translations: [Vitamin D deficiency, unspecified] Chronic Nutritional deficiencies (2 sources) Vitamin B deficiency; Translations: [Vitamin B deficiency, unspecified] Episodic Other bone disease and musculoskeletal deformities (8 sources) Juvenile idiopathic scoliosis, thoracolumbar region; Translations: [Scoliosis [and kyphoscoliosis], idiopathic] Chronic Other connective tissue disease (3 sources) H/O: arthrodesis; Translations: [Arthrodesis status] Episodic Other connective tissue disease (6 sources) H/O: musculoskeletal disease; Translations: [Personal history of other musculoskeletal disorders] Episodic Comment on above: Had surgery for this in 2010; Other connective tissue disease (1 source) Arthrodesis status; Translations: [Arthrodesis status] Onset: 03-14-2023 Episodic Other nervous system disorders (8 sources) Neuropathy; Translations: [Polyneuropathy, unspecified] Chronic Other nervous system disorders (2 sources) Polyneuropathy, unspecified; Translations: [Polyneuropathy, unspecified] Onset: 07-14-2023 Chronic Other nervous system disorders (1 source) Polyneuropathy; Translations: [Other specified polyneuropathies] Chronic Other nervous system disorders (1 source) Other specified polyneuropathies Chronic Other nervous system disorders (3 sources) Complex regional pain syndrome of lower limb; Translations: [Complex regional pain syndrome I of unspecified lower limb] 08-14-2024 Chronic Other nervous system disorders (2 sources) Chronic pain syndrome; Translations: [Chronic pain syndrome] 08-14-2024 Chronic Other nervous system disorders (2 sources) Complex regional pain syndrome I of unspecified lower limb; Translations: [Complex regional pain syndrome type 1 of lower extremity, unspecified laterality] Onset: 10-08-2024 Chronic Other nervous system disorders (1 source) Chronic pain syndrome; Translations: [Chronic pain syndrome] Onset: 11-07-2024 Chronic Other nervous system disorders (1 source) [...] Translations: [Lumbago with sciatica, right side] Onset: 03-14-2023 Episodic Substance-related disorders (2 sources) Nicotine dependence, cigarettes, uncomplicated; Translations: [Nicotine dependence, cigarettes, uncomplicated] Onset: 10-31-2023 Chronic Unclassified (3 sources) Low back pain, unspecified; Translations: [Low back pain, unspecified] Onset: 02-10-2023 Past or Other Problems Problem Classification Problem Date Documented Da te Episodic/Chronic Unclassified (1 source) Low back pain, unspecified; Translations: [Low back pain, unspecified] Onset: 03-14-2023 Unclassified (1 source) Patient encounter status 11-23-2024 Results Test Name Value Interpretation Reference Range [facility] HUE TITUS ([id number]) 1990 F CHT Date Time Provider Department 11/15/24 BLESSING REYES During your visit today, we recorded the following information about you: Blessing Reyes APRN.CNP 11/15/2024 11:08 AM Signed Patient scheduled for virtual PACC today for upcoming procedure 11/[address] Jim Once logged in for visit, she stated that she will postponing her surgery because she is moving. No future surgical date is scheduled. I advised that PACC should also be postponed until she is rescheduled for surgery. She stated understanding. PACC visit not completed. Blessing Reyes APRN.CNP PACC Allergies As of Date: 11/15/2024 (No Known Allergies) Date Reviewed: 11/07/2024 Reviewed by: Erin Marley RN - Fully Assessed Reason for Visit: PreOp Call [[id number]] Cmt: PACC Prescriptions as of 11/15/2024 - buPROPion XL (WELLBUTRIN XL) 300 mg 24 hr tablet Take 300 mg by mouth once daily. - pregabalin (LYRICA) 100 mg capsule Take 100 mg by mouth three times a day as needed. - gabapentin (NEURONTIN) 600 mg tablet Take 2 tablets by mouth three times a day for 30 days. - metoprolol tartrate, short acting, (LOPRESSOR) 25 mg tablet take 1 tablet by mouth twice a day - dextroamphetamine-amp hetamine (ADDERALL) 10 mg tablet Take 1 tablet by mouth every afternoon for 30 days. - escitalopram oxalate (LEXAPRO) 20 mg tablet Take 1 tablet by mouth once daily. - amphetamine-dextroamp hetamine XR (ADDERALL XR) 30 mg capsule Take 1 capsule by mouth once daily for 30 days. Problem List As Of Date 11/15/2024 Noted Resolved Paroxysmal atrial fibrillation (HCC) [I48.0] 09/27/2022 Encounter Status:Closed by BLESSING REYES on 11/15/24 [facility] CNOVon 11-14-2024 CNOV Office Visit (PAINMN ) HUE TITUS ([id number]) 1990 F CHT Date Time Provider Department 11/14/24 10:30 AM ERLINDA FRIEND PAINMN During your visit today, we recorded the following information about you: Erlinda Friend APRN.JACQUARD CARD CUTTER 11/23/2024 4:56 PM Signed Chronic Pain Management Suture Removal SUBJECTIVE: Hue Titus presents to [facility] for suture removal following DRG trial implant with [employer] for treatment of CRPS placed 11/07/24. Since the last visit she states symptoms are much improved. Current pain intensity is 0 on a scale of 0 -10. Pain is located in her right foot and leg. The pain is described as tinging, numbness, throbbing, and stabbing. She reports back pain but believes it is due to the battery. She states prior to the trial her pain would be a 9/10, she states the trial decreased her pain to a 0-3/10. She needed reprogramming throughout the trial to which was helpful. She states she was comfortable driving and was able to watch a movie, previously which she had trouble with in the past. She reports significant 80% relief with the trial and would like to proceed with permanent implant. OBJECTIVE/ASSESSMENT: The left lower lumbar dressings were noted to be clean, dry and intact. The dressing was removed and the suture line was well approximated and dry. No warmth, erythema or swelling noted at the site. The incision line was cleansed with CHG. The suture was removed using sterile technique. The DRG lead was removed with 4 intact contact points. A primapore dressing applied. The [employer] assistance representative was here and evaluated her programming. PLAN: 1) Patient instructions given regarding care of incisions, signs/symptoms of infection, shower instructions and activity restrictions. 2) Patient to RTC for permanent implant 3) Patient instructed to call or return if pain increases, becomes worse or changes. 4) PACC: virtual PACC The plan of care was continued as established by Dr. Jim. The above plan and management options were discussed at length with patient. Patient is in agreement with the above and verbalized understanding. Erlinda Friend APRN.JACQUARD CARD CUTTER November 14, 2024 10:08 AM Erlinda Friend APRN.JACQUARD CARD CUTTER 11/14/2024 11:02 AM Signed -When showering, wash with soap and water and pat dry. -No dressing needed, leave open to the air. No swimming, bathing or hot tub for 14 days. - Nasal swab 1 week prior to implant -EKG and labs anytime prior to implant Referring Provider: ERLINDA FRIEND [[id number]] Allergies As of Date: 11/14/2024 (No Known Allergies) Date Reviewed: 11/07/2024 Reviewed by: Erin Marley RN - Fully Assessed Primary Visit Diagnosis:Complex regional pain syndrome type 1 of lower extremity, unspecified laterality [G90.529] Other Visit Diagnoses:Chronic pain syndrome [G89.4] Pre-op testing [Z01.818] Order(s):BASIC METABOLIC PANEL [SQBMP] Order #: [id number] FUTURE COMPLETE BLOOD COUNT [SQCBC] Order #: [id number] FUTURE STAPHYLOCOCCUS AUREUS AND MRSA SCREEN, PCR, NASAL [SQSAPCR] Order #: [id number] FUTURE ECG COMPLETE [ECG01] Order #: [id number] FUTURE VIRTUAL CONSULT TO PACC / CENTER FOR PERIOPERATIVE MEDICINE - PREOPERATIVE OPTIMIZATION [[id number]] Order #: [id number]: 1 FUTURE Prescriptions as of 11/23/2024 - buPROPion XL (WELLBUTRIN XL) 300 mg 24 hr tablet Take 300 mg by mouth once daily. - pregabalin (LYRICA) 100 mg capsule Take 100 mg by mouth three times a day as needed. - gabapentin (NEURONTIN) 600 mg tablet Take 2 tablets by mouth three times a day for 30 days. - metoprolol tartrate, short acting, (LOPRESSOR) 25 mg tablet take 1 tablet by mouth twice a day - dextroamphetamine-amp hetamine (ADDERALL) 10 mg tablet Take 1 tablet by mouth every afternoon for 30 days. - escitalopram oxalate (LEXAPRO) 20 mg tablet Take 1 tablet by mouth once daily. - amphetamine-dextroamp hetamine XR (ADDERALL XR) 30 mg capsule Take 1 capsule by mouth once daily for 30 days. Problem List As Of Date 11/14/2024 Noted Resolved Paroxysmal atrial fibrillation (HCC) [I48.0] 09/27/2022 Other instructions from your clinician: -When showering, wash with soap and water and pat dry. -No dressing needed, leave open to the air. No swimming, bathing or hot tub for 14 days. - Nasal swab 1 week prior to implant -EKG and labs anytime prior to implant Encounter Status:Closed by ERLINDA FRIEND on 11/23/24 [facility] CNCOon 11-13-2024 CNCO Letter Text [facility] BRIEF OP NOTon 11-07-2024 BRIEF OP NOT HNO ID: [id number] Author: SRINIVAS LEES DO Service: ? Author Type: Fellow Type: Brief Op Note Filed: 11/07/2024 10:38 Note Text: BRIEF OPERATIVE / PROCEDURE NOTE LOG ID: [id number] SURGERY/PROCEDURE DATE: 11/07/2024 INCISION/PROCEDURE START TIME: 9:48 AM INCISION CLOSE/PROCEDURE END TIME: 10:35 AM SURGEON(S)/PROCEDURAL IST(S) AND SECTION CREWS ACTIVITIES CLERK(S): Surgeons and Role: * Dileep Jim MD - Primary * Srinivas Lees DO - Fellow No Additional Staff SURGERY/PROCEDURE(S): Right L5 DRG Trial ANESTHESIA: Procedural Sedation FINDINGS: None ESTIMATED BLOOD LOSS: Minimal SPECIMENS: None COMPLICATIONS: None PRE-OP/PRE-PROCEDURE DIAGNOSIS: Complex regional pain syndrome type 1 of lower extremity, unspecified laterality [G90.529] Chronic pain syndrome [G89.4] POST-OP/POST-PROCEDUR E DIAGNOSIS: Complex regional pain syndrome type 1 of lower extremity, unspecified laterality [G90.529] Chronic pain syndrome [G89.4] SIGNATURE: Srinivas Lees DO PATIENT NAME: Hue Titus DATE: November 07, 2024 TIME: 10:37 AM [facility] HISTORY PHYSICALon HISTORY PHYSICAL HNO ID: [id number] Author: DILEEP JIM MD Service: Pain Management Author Type: Physician Type: H&P Filed: 11/07/2024 09:26 Note Text: PROCEDURE EVALUATION AND HISTORY AND PHYSICAL EXAM SUBJECTIVE: Hue Titus is a 34 year old woman who presents to [facility] for dorsal root ganglion spinal cord stimulator trial. This is her first (1) procedure.. Focused Review of Systems: PAIN: Pain Pain Assessment: Assessment Patient Status: Awake Tool: Verbal (Numeric Rating or Visual Analog Scale) Pain Level: 2 Pain Location: Foot-Right Description: Burning, Tingling Duration: Continuous Intervention/Comfort measure: Positioning, Reposition, Other: See comment, Heat (walking) Denies any contraindications to the procedure including , coagulopathy, infection, recent cerebral/myocardial infarct, and hemodynamic instability. She states she is NPO and has a ambulance driver paramedic for return home. Current Outpatient Medications Medication Instructions amphetamine-dextroamp hetamine XR (ADDERALL XR) 30 mg capsule 30 mg, ORAL, DAILY buPROPion XL (WELLBUTRIN XL) 300 mg, DAILY dextroamphetamine-amp hetamine (ADDERALL) 10 mg tablet 10 mg, ORAL, EVERY AFTERNOON escitalopram oxalate (LEXAPRO) 20 mg, ORAL, DAILY gabapentin (NEURONTIN) 1,200 mg, ORAL, 3 TIMES DAILY metoprolol tartrate (short acting) (LOPRESSOR) 25 mg, ORAL, 2 TIMES DAILY pregabalin (LYRICA) 100 mg, 3 TIMES DAILY NEEDED ALLERGIES No Known Allergies PAST ANESTHESIA HISTORY: No history of adverse event PAST MEDICAL HISTORY Diagnosis Date ADHD (attention deficit hyperactivity disorder) Ovarian cyst PAF (paroxysmal atrial fibrillation) ([facility]) 07/2022 follows with cardiology Scoliosis SVT, lower extremity ([facility]) 2018 ASA only no anticoagulants PAST SURGICAL HISTORY Procedure Laterality Date OTHER SURGICAL HISTORY (PLEASE SPECIFY) HX 2004,2006 back surgery x2 for scoliosis with marilu placement OBJECTIVE: BP 126/86 Pulse 90 Temp 37.1 ?C (98.8 ?F) (Temporal) Resp 16 Wt 59.9 kg (132 lb) LMP 02/13/2023 (Approximate) SpO2 99% BMI (P) 20.67 kg/m? Focused Physical Exam: AIRWAY: Patent, MP 2 LUNGS: Breathing unlabored, normal chest excursion Extremity: no evidence of infection or deformity Significant changes in the patient's condition since the last C25 [facility] visit: No Provisional Diagnosis: Complex regional pain syndrome type 1 of lower extremity, unspecified laterality [G90.529] Chronic pain syndrome [G89.4] Planned Procedure: dorsal root ganglion spinal cord stimulator trial Srinivas Lees DO November 07, 2024 [facility] NURSING PROGon 11-07-2024 NURSING PROG HNO ID: [id number] Author: LIBIA CARTER RN Service: ? Author Type: Registered Nurse Type: Nursing Progress Note Filed: 11/12/2024 14:36 Note Text: Documenting your pain relief on the day of the procedure before the local anesthetic medication wears off is very important in acquiring insurance approval. It's very important that we document your pain scores only of the area treated, so we are asking you to tell us the score of the pain when you are or were doing things that typically cause pain in that treated area (e.g., standing/walking, twisting/reaching). All scores are on a 0-10 scale. 0 is NO pain and 10 is the worst pain you can imagine. For percentage of pain relief - 100% is complete pain relief 1. What was your pain score with the painful activity prior to the procedure? 2. What is your percentage of pain relief when doing the activities that previously caused you pain? 3. What is your pain level today? Your physician will review your pain scores to determine the next step of your care No answer voicemail left - If patient has a MyChart to please respond with the information via the [facility] message. If patient does not have MyChart patient was instructed to call [phone] option 3 to speak to a nurse. [facility] OPERATIVE NOon 11-07-2024 OPERATIVE NO HNO ID: [id number] Author: DILEEP JIM MD Service: Pain Management Author Type: Physician Type: Operative Report Filed: 11/16/2024 09:08 Note Text: OPERATIVE/PROCEDURE REPORT : LOG ID: [id number] SURGERY/PROCEDURE DATE: 11/07/2024 INCISION/PROCEDURE START TIME: 9:48 AM INCISION CLOSE/PROCEDURE END TIME: 10:35 AM PRE-OP/PRE-PROCEDURE DIAGNOSIS: complex regional pain syndrome (CRPS) of the right lower limb G90.521 POST-OP/POST-PROCEDUR E DIAGNOSIS: complex regional pain syndrome (CRPS) of the right lower limb G90.521 SURGERY/PROCEDURE(S): Right L5 DRG Trial SURGEON(S)/PROCEDURAL IST(S) AND SECTION CREWS ACTIVITIES CLERK(S): Surgeons and Role: * Dileep Jim MD - Primary * Srinivas Lees DO - Fellow No Additional Staff The attending was present for the entire procedure. ANESTHESIA: Local and Moderate Sedation Sedation: Fentanyl 50 mcg IV and Versed 2 mg IV were administered. IV sedation was administered incrementally to allow the patient to remain comfortable and conversant throughout the procedure. SEDATION START TIME: 9:48 AM SEDATION END TIME: 10:39 AM SURGERY/PROCEDURE DESCRIPTION: IV was started prior to the procedure.. Ms. Titus was transported to the fluoroscopy suite and was placed in a prone position on the fluoroscopy table. The patient was monitored using pulse oximetry, intermittent blood pressure reading, and 3-lead EKG. Using sterile technique, the skin over the injection site was prepped with duraprep and draped. PREOPERATIVE ANTIBIOTICS: 2 g IV of Ancef was given 30 minutes prior to procedure start, see anesthesia record for time. DESCRIPTION OF PROCEDURE: IV sedation was administered incrementally to allow the patient to remain comfortable and conversant throughout the procedure. Skin anesthesia was achieved using 10 cc of lidocaine 1%. A 14 3 1/2 inch Tuohy needle was inserted at the L5 interspace using a paramedian approach. The lead was placed under the right L5 pedicle. AP and lateral views confirmed placement. Superior and inferior loops were made. The sheath was then removed followed by the needle then the stylet. Lead was then connected to allow for test stimulation. The patient reported stimulation covering the painful areas. The leads were secured in place with silicone anchors and Ethilon sutures. A sterile dressing with topical antibiotic was applied. The patient was transferred to the postoperative area in stable condition. FINDINGS: None COMPLICATIONS: None ESTIMATED BLOOD LOSS: 0 ml SPECIMENS: None POST-PROCEDURE AANDP: ASSESSMENT: Purposeful response to verbal or tactile stimulation: yes Neurological Status: Alert and oriented x 3 Post Procedure Pain Level: 3 on a scale of 0-10. Postoperative Nausea/Vomiting (PONV): absent PLAN: 1) s/p DRG Trial. 2) RTC 1 week with Erlinda Friend. 3) The treatment plan was discussed with Ms. Titus. Post procedure instructions were reviewed and she voiced understanding. Srinivas Lees DO November 06, 2024 Teaching Statement I have examined the patient and confirm the pertinent findings. I was present for the whole procedure. I discussed the case with the resident/fellow and agree with the findings and plan as documented. Dileep Jim MD November 13, 2024 [facility] CNOVon 10-08-2024 CNOV Office Visit ([facility]) HUE TITUS ([id number]) 1990 [facility] Date Time Provider Department 10/08/24 1:00 PM HUMA CROWDER [facility] During your visit today, we recorded the following information about you: Huma Crowder, PhD 10/09/2024 10:47 AM Signed [facility] PAIN MANAGEMENT BEHAVIORAL MEDICINE EVALUATION REFERRING PHYSICIAN: Dileep Jim MD ATTENDING PHYSICIAN: Huma Weiss, PHD Hue Titus PATIENT TYPE: [facility] : 1990 DATE OF SERVICE: October 08, 2024 IDENTIFYING INFORMATION Hue Titus is a 34 year old female from [place], [place] who was referred for evaluation by Dileep Jim MD to determine if she would be an appropriate candidate for a dorsal root ganglion stimulator (DRG). PRESENTING COMPLAINT She presents with complex regional pain syndrome (CRPS) I, lower extremities, unspecified laterality, G90.5 21; chronic pain syndrome, G89.4. Her pain is in her right leg and foot. She was asked about her pain level on a typical day, and responded that no day is typical. She may average 4 or 5 on a 10 point scale, go as low as 0-1, and as high as 9. She describes it as burning, shooting, tingling in her foot; her leg is numb. Sitting/standing too long exacerbates her pain. Recently the touch from her shoes and socks also exacerbates her pain and she has only 1 type of crocs shoe that she can wear at this point in time. She is also hypersensitive to cold. She finds some relief changing positions, elevating her leg, and using heat. She notes her pain worsens over the course of the day. CIRCUMSTANCES OF ONSET She has a history of juvenile scoliosis. Back pain began about 7 years ago, the foot pain in with no precipitating event. She had been working at [employer] in [place], having pain on the outside of her calf which caused her to worry about blood clots. She went to urgent care and was given steroids for brief relief, but then became numb. OTHER PHYSICAL CONDITIONS There are no active hospital problems to display for this patient. PAST MEDICAL HISTORY Diagnosis Date ADHD (attention deficit hyperactivity disorder) Ovarian cyst PAF (paroxysmal atrial fibrillation) ([facility]) 07/2022 follows with cardiology Scoliosis SVT, lower extremity ([facility]) 2019 ASA only no anticoagulants PAST SURGICAL HISTORY Procedure Laterality Date OTHER SURGICAL HISTORY (PLEASE SPECIFY) HX 2004,2005 back surgery x2 for scoliosis with marilu placement RELEVANT MEDICAL HISTORY She had a fusion in 2004 and a second surgery to extend the fusion to L4. She has records that reflect a history of ADHD, depression, pain, and A-fib. She states the A-fib has been resolved. She has had lumbar sympathetic blocks, caudal epidural steroids and other injections all without relief. She had aquatic therapy which helped initially and then stopped providing relief. She has not seen a psychologist for pain management other than the evaluation for her initial stimulator trial, but did see a counselor daily and an alcohol and drug rehab program for a year. She saw psychiatrist for ADHD, but her treatment is now managed by her PCP. She has not had a TENS unit. Physical therapy is the treatment that she reports has helped the most, but only temporarily. Overall, she states that not a lot has helped. A couple of years ago she had more relief from gabapentin and Lyrica, but those are no longer helping as much. She had a spinal cord stimulator trial with Dr. Dennis, but it had to be aborted due to trouble getting the needle in due to scar tissue. She states her back pain worsened after that trial. CURRENT MEDICATIONS Current Outpatient Medications Medication Sig Dispense Refill pregabalin (LYRICA) 100 mg capsule Take 100 mg by mouth three times a day as needed. gabapentin (NEURONTIN) 600 mg tablet Take 2 tablets by mouth three times a day for 30 days. 180 tablet 0 metoprolol tartrate, short acting, (LOPRESSOR) 25 mg tablet take 1 tablet by mouth twice a day 60 tablet 2 dextroamphetamine-amp hetamine (ADDERALL) 10 mg tablet Take 1 tablet by mouth every afternoon for 30 days. 30 tablet 0 escitalopram oxalate (LEXAPRO) 20 mg tablet Take 1 tablet by mouth once daily. 90 tablet 1 amphetamine-dextroamp hetamine XR (ADDERALL XR) 30 mg capsule Take 1 capsule by mouth once daily for 30 days. 30 capsule 0 No current facility-administered medications for this visit. ALLERGIES ALLERGIES No Known Allergies SUBSTANCE USE She is a recovering addict. With the sobriety date of 04/19/2024. She had been in a 1 year alcohol and drug rehabilitation program. Had a 1 day relapse, drinking 1 beer on 04/18/2024, but has been sober since the next day. She graduated from the program 09/11/2024. She does not smoke, but uses nicotine pouches that she places between her teeth and danilo (more content not included)... [facility] 09-13-2024 [facility] Telephone ([facility]) HUE TITUS ([id number]) 1990 F [facility] Date Time Provider Department 09/13/24 HUMA CROWDER [facility] During your visit today, we recorded the following information about you: Chitra Matta 09/13/2024 10:26 AM Signed Left voicemail message for patient to call back to schedule testing with Dr. Douglass Allergies As of Date: 09/13/2024 (No Known Allergies) Date Reviewed: 08/14/2024 Reviewed by: Christine Daley LPN - Fully Assessed Reason for Visit: Appointment [186] Prescriptions as of 09/13/2024 - pregabalin (LYRICA) 100 mg capsule Take 100 mg by mouth three times a day as needed. - gabapentin (NEURONTIN) 600 mg tablet Take 2 tablets by mouth three times a day for 30 days. - metoprolol tartrate, short acting, (LOPRESSOR) 25 mg tablet take 1 tablet by mouth twice a day - dextroamphetamine-amp hetamine (ADDERALL) 10 mg tablet Take 1 tablet by mouth every afternoon for 30 days. - escitalopram oxalate (LEXAPRO) 20 mg tablet Take 1 tablet by mouth once daily. - amphetamine-dextroamp hetamine XR (ADDERALL XR) 30 mg capsule Take 1 capsule by mouth once daily for 30 days. Problem List As Of Date 09/13/2024 Noted Resolved Paroxysmal atrial fibrillation (HCC) [I48.0] 09/27/2022 Encounter Status:Closed by CHITRA MATTA on 09/13/24 [facility] Office Visit ([facility] ) HUE TITUS ([id number]) 1990 F [facility] Date Time Provider Department 08/14/24 2:30 PM DILEEP JIM During your visit today, we recorded the following information about you: Dileep iJm MD 08/17/2024 10:37 AM Signed [facility] Pain Management Department New Patient Consultation Referring Physician: Chucky Hernandez M.D. 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 The patient complains of back pain. The pain started 7 years ago, symptoms have been persistent. The pain is located in the right leg and foot area. The pain is described as burning, shooting, and tingling. Currently, the pain is rated at 5/10, and it ranges from 0-10/10 on the patient's best and worst days, respectively. The pain is exacerbated by sitting and standing. The pain is mitigated by Position change, elevation, and heat. The pain does interfere with the patient's sleep at night and the patient reports 4 hours of uninterrupted sleep per night. She had a magdalene fusion in 2004, however a year after that surgery she needed a second surgery to extend her fusion down to L4. She was doing fine after her second surgery until August 2017 when she started to develop right leg pain particularly in the right calf and foot. Describes as a sharp pain. She was seeing pain management with Dr. Dennis who tried a spinal cord stimulator trial in December 2022 but was unsuccessful because of all the scar tissue in her back they had trouble getting in the needle. After the trial with the spinal cord stimulator she started to develop worsening low back pain. The patient does currently work. The patient denies denies red flags. Physical Therapy/Home Exercise: Yes In the past 12 months, She completed 10 physical therapy sessions. Physical therapy is helpful. Current Pain Medications and Dosages: - Opioids: n - NSAIDs: n - Anti-Depressants: n - Anti-Convulsants: Lyrica 100 mg TID, Gabapentin 600 mg BID - Others: n Prior treatments (including what specific medications tried): n Prior Pain Procedures (with percentage of pain relief and duration of relief): Right L5-S1 S1-S2 TFESI in March 2024 with> 50% improvement in pain and functional ability . Right foot pain 5/10 increasing to 8/10 with standing walking and activity, continues to report numbness tingling burning. Most recent right L5/S1 while living in [place] which lasted for one day. Failed a spinal cord stimulator OARRS report: Reviewed: The patient's OARRS report was reviewed and is consistent with the reported medication use. Pain medications reviewed: Yes PAST MEDICAL HISTORY Diagnosis Date ADHD (attention deficit hyperactivity disorder) Ovarian cyst PAF (paroxysmal atrial fibrillation) ([facility]) 07/2022 follows with cardiology Scoliosis SVT, lower extremity ([facility]) 2019 ASA only no anticoagulants [...] [Other]) Mother Scoliosis Father Scoliosis Paternal Aunt ALLERGIES No Known Allergies Current Outpatient Medications Medication Sig pregabalin (LYRICA) 100 mg capsule Take 100 mg by mouth three times a day as needed. gabapentin (NEURONTIN) 600 mg tablet Take 2 tablets by mouth three times a day for 30 days. metoprolol tartrate, short acting, (LOPRESSOR) 25 mg tablet take 1 tablet by mouth twice a day dextroamphetamine-amp hetamine (ADDERALL) 10 mg tablet Take 1 tablet by mouth every afternoon for 30 days. escitalopram oxalate (LEXAPRO) 20 mg tablet Take 1 tablet by mouth once daily. amphetamine-dextroamp hetamine XR (ADDERALL XR) 30 mg capsule Take 1 capsule by mouth once daily for 30 days. No current facility-administered medications for this visit. Questionnaires: Patient Entered Questionnaires PROMIS Score Percentiles 01/05/2023 07/18/2024 PROMIS Global Health Scale Physical Health Percentile 15 Mental Health Percentile 34 82 07/18/2024 Physical Health Physical Function Percentile 14 Pain Interference Percentile 10 Percentiles provide an indication of how the patient's score ranks in relation to the general population. Higher percentile rankings indicate better function/quality of life. 50th percentile is the average of the general population and indic (more content not included)... [facility]20[facility] HUE TITUS ([id number]) 1990 [facility] Date Time Provider Department 05/31/24 ORTEGA WRIGHT During your visit today, we recorded the following information about you: Julianne Anderson RN 05/31/2024 10:39 AM Signed New patient info sent via my chart Julianne Anderson RN 05/31/2024 11:38 AM Addendum Called and spoke to patient. Chart reviewed and referral was consult for DRG stimulator. Informed patient that Dr. Wright and providers at [facility] do not perform that procedure. Patient should schedule with [facility] [place], Dr. Jim for consult. Office number given for patient to call and schedule appointment with Dr. Jim. Patient voiced understanding and will call [facility] office Appointment with Dr. Wright cancelled Allergies As of Date: 05/31/2024 (No Known Allergies) Date Reviewed: 05/27/2023 Reviewed by: Yo Adames LPN - Fully Assessed Reason for Visit: Appointment [186] Cmt: New patient call Prescriptions as of 05/31/2024 - ergocalciferol 50,000 unit capsule (VITAMIN D2, DRISDOL) Take 1 capsule by mouth one time a week. - buPROPion XL (WELLBUTRIN XL) 150 mg 24 hr tablet Take 1 tablet by mouth once daily. - gabapentin (NEURONTIN) 600 mg tablet Take 2 tablets by mouth three times a day for 30 days. - metoprolol tartrate, short acting, (LOPRESSOR) 25 mg tablet take 1 tablet by mouth twice a day - pregabalin (LYRICA) 50 mg capsule Take 1 capsule by mouth three times daily for 90 days. - aspirin 325 mg cap Take 1 capsule by mouth once daily. - dextroamphetamine-amp hetamine (ADDERALL) 10 mg tablet Take 1 tablet by mouth every afternoon for 30 days. - dextroamphetamine-amp hetamine (ADDERALL) 10 mg tablet Take 1 tablet by mouth every afternoon for 30 days. Do not start before July 26, 2023. - escitalopram oxalate (LEXAPRO) 20 mg tablet Take 1 tablet by mouth once daily. - amphetamine-dextroamp hetamine XR (ADDERALL XR) 30 mg capsule Take 1 capsule by mouth once daily for 30 days. - cyanocobalamin 1,000 mcg/mL Inject 1,000 mcg intramuscularly once every month. Problem List As Of Date 05/31/2024 Noted Resolved Paroxysmal atrial fibrillation (HCC) [I48.0] 09/27/2022 Encounter Status:Closed by JULIANNE ANDERSON on 05/31/24 [facility] 36on 12-20-[address] VIGIL STATES TO STOP MEDS AND ASPIRIN Normal [facility] Office Visiton 12-20-2023 Follow-up visit [id number] Hue Titus 1990 F Date Provider Department Center 12/20/2023 BOBO VILLASENOR ISAAC [facility] Family History Problem Relation Age of Onset Atrial fibrillation Mother Stroke Maternal Grandmother Family Status - Relation Status Age at Mother Maternal Grandmother Level of Service:60468 [place] OFFICE/OUTPATIENT ESTABLISHED LOW MDM 20 MIN Normal [facility] Office Visiton 10-31-2023 Follow-up visit [id number] Hue Titus 1990 F Date Provider Department Center 10/31/2023 KIANA BILLINGS ISAAC [facility] Family History Problem Relation Age of Onset Atrial fibrillation Mother Stroke Maternal Grandmother Family Status - Relation Status Age at Mother Maternal Grandmother Level of Service:56980 [place] OFFICE/OUTPATIENT NEW MODERATE MDM 45 MINUTES [facility] XR lumbar spine 6V w bending on 09-12-2023 XR lumbar spine 6V w bending [facility] [place] [address] XRay Report Signed Patient: Hue Titus MR#: [id number] : 1990 Acct:[id number] Age/Sex: 33 / F ADM Date: 09/12/23 Loc: XD Room: Type: [facility] Attending Dr: Lorie HUGHES Copies to: SAUL [...] Amberly Livingston M.D.09/12/2023 5:18 PM Dictation Location: [place] [address] Transcribed By: [facility] 09/12/231717 Dictated By: Amberly Livingston MD 09/12/231714 Signed By: 09/12/231717 Normal [facility] CBC W Auto Differential pane l (Bld)on 05-26-2023 Basophils (Bld) [#/Vol] 0.05 10*3/uL <0.11 k/uL [facility] Basophils/100 WBC (Bld) 0.7 % [facility] Differential cell count method Nom (Bld) Auto [facility] Eosinophils (Bld) [#/Vol] 0.14 10*3/uL <0.46 k/uL [facility] Eosinophils/100 WBC (Bld) 1.9 % [facility] Erythrocyte distribution width (RBC) [Ratio] 13.4 % 11.5 - 15.0 % [facility] Hematocrit (Bld) [Volume fraction] 44.3 % 36.0 - 46.0 % [facility] Hemoglobin (Bld) [Mass/Vol] 14.6 g/dL 11.5 - 15.5 g/dL [facility] Immature granulocytes (Bld) [#/Vol] 0.07 10*3/uL <0.10 k/uL [facility] Immature granulocytes/100 WBC (Bld) 0.9 % [facility] Lymphocytes (Bld) [#/Vol] 1.92 10*3/uL 1.00 - 4.00 k/uL [facility] Lymphocytes/100 WBC (Bld) 26.0 % [facility] MCH (RBC) [Entitic mass] 31.7 pg 26.0 - 34.0 pg [facility] MCHC (RBC) [Mass/Vol] 33.0 g/dL 30.5 - 36.0 g/dL [facility] MCV (RBC) [Entitic vol] 96.3 fL 80.0 - 100.0 fL [facility] Monocytes (Bld) [#/Vol] 0.63 10*3/uL <0.87 k/uL [facility] Monocytes/100 WBC (Bld) 8.5 % [facility] Neutrophils (Bld) [#/Vol] 4.57 10*3/uL 1.45 - 7.50 k/uL [facility] Neutrophils/100 WBC (Bld) 62.0 % [facility] Nucleated RBC (Bld) [#/Vol] <0.01 k/uL [facility] Nucleated RBC/100 WBC (Bld) [Ratio] 0.0 /100 WBC [facility] Platelet mean volume (Bld) [Entitic vol] 9.1 fL 9.0 - 12.7 fL [facility] Platelets (Bld) [#/Vol] 385 10*3/uL 150 - 400 k/uL [facility] RBC (Bld) [#/Vol] 4.60 10*6/uL 3.90 - 5.2 0 m/uL [facility] WBC (Bld) [#/Vol] 7.38 10*3/uL 3.70 - 11. 00 k/uL [facility] CT L-Spine Post Myelogramon 03-14-2023 CT Lumbar spine WO and W contrast IV Please click on the link to view the study images [facility] [place] [address] DO Work Phone: CT Lumbar spine WO and W contrast IV [facility] Work Phone: CT Lumbar spineon 03-14-2023 Radiology Study observation (narrative) [facility] Work Phone: NR CT L-SPINE POST MYELOGRAM on 03-14-[address] L-SPINE POST MYELOGRAM Patient Name: HUE TITUS STUDY: MYELOGRAPHY, LUMBOSACRAL WITH LUMBAR PUNCTURE; CT L-SPINE [facility]; 03/14/2023 12:59 pm; 03/14/2023 1:10 pm INDICATION: right lumbar radiculopathy. History of scoliosis s/p thoracolumbar fusion M54.16: Lumbar radiculopathy, right; right lumbar radiculopathy. History of scoliosis s/p thoracolumbar fusion M54.50: Lumbar pain M54.16: Lumbar radiculopathy, right. COMPARISON: Radiographs of the lumbosacral spine dated 02/10/2023. ACCESSION NUMBER(S): [id number]; [id number] ORDERING CLINICIAN: TERRIE BROWN TECHNIQUE: After discussion [...] foramina. L5-S1: Spinal canal is patent. Mild nguh-hxzyrfu-gdlb-rig ht foraminal stenosis secondary to facet hypertrophy [...] headache persists, (more content not included)... Normal [facility] NR MYELO, LUMBOSACRAL WITH L UMBAR PUNCTUREon 03-14-2023 NR MYELO, LUMBOSACRAL WITH LUMBAR PUNCTURE Patient Name: HUE TITUS STUDY: MYELOGRAPHY, LUMBOSACRAL WITH LUMBAR PUNCTURE; CT L-SPINE [facility]; 03/14/2023 12:59 pm; 03/14/2023 1:10 pm INDICATION: right lumbar radiculopathy. History of scoliosis s/p thoracolumbar fusion M54.16: Lumbar radiculopathy, right; right lumbar radiculopathy. History of scoliosis s/p thoracolumbar fusion M54.50: Lumbar pain M54.16: Lumbar radiculopathy, right. COMPARISON: Radiographs of the lumbosacral spine dated 02/10/2023. ACCESSION NUMBER(S): [id number]; [id number] ORDERING CLINICIAN: TERRIE BROWN TECHNIQUE: After discussion [...] foramina. L5-S1: Spinal canal is patent. Mild kgzl-cxbucfq-otiy-rig ht foraminal stenosis secondary to facet hypertrophy [...] headache persists, (more content not included)... Normal [facility] No Panel Informationon 03-14 Technically [...] This study was performed and interpreted at [facility]. I agree with the procedural description and the findings as stated. [facility] Interpreted By: DINA DENNIS MD and FER GENTILE MD Patient Name: HUE TITUS STUDY: MYELOGRAPHY, LUMBOSACRAL WITH LUMBAR PUNCTURE; CT L-SPINE [facility]; 03/14/2023 12:59 pm; 03/14/2023 1:10 pm INDICATION: right lumbar radiculopathy. History of scoliosis s/p thoracolumbar fusion M54.16: Lumbar radiculopathy, right; right lumbar radiculopathy. History of scoliosis s/p thoracolumbar fusion M54.50: Lumbar pain M54.16: Lumbar radiculopathy, right. COMPARISON: Radiographs of the lumbosacral spine dated 02/10/2023. ACCESSION NUMBER(S): [id number]; [id number] ORDERING CLINICIAN: TERRIE BROWN TECHNIQUE: After discussion [...] foramina. L5-S1: Spinal canal is patent. Mild kzsz-tlswmhw-clgz-rig ht foraminal stenosis secondary to facet hypertrophy [...] procedure. Incidental: IUD visualized in the uterus. [facility] Dina Dennis MD - 03/14/2023 Interpreted By: DINA DENNIS MD and FER GENTILE MD Patient Name: HUE TITUS STUDY: MYELOGRAPHY, LUMBOSACRAL WITH LUMBAR PUNCTURE; CT L-SPINE [facility]; 03/14/2023 12:59 pm; 03/14/2023 1:10 pm INDICATION: right lumbar radiculopathy. History of scoliosis s/p thoracolumbar fusion M54.16: Lumbar radiculopathy, right; right lumbar radiculopathy. History of scoliosis s/p thoracolumbar fusion M54.50: Lumbar pain M54.16: Lumbar radiculopathy, right. COMPARISON: Radiographs of the lumbosacral spine dated 02/10/2023. ACCESSION NUMBER(S): [id number]; [id number] ORDERING CLINICIAN: TERRIE BROWN TECHNIQUE: After discussion [...] foramina. L5-S1: Spinal canal is patent. Mild dvtt-ihqqndv-jphq-rig ht foraminal stenosis secondary to facet hypertrophy [...] and along th (more content not included)... [facility] Work Phone: Please click on the link to view the study images Normal [facility] [address] DO Work Phone: Normal [facility] Work Phone: No Panel InformationOrdered By: Dina Dennis on 03-14-2023 [facility] Work Phone: RF Guidance for injection of Lumbar spineon 03-14-2023 Radiology Study observation (narrative) [facility] Work Phone: CBCon 03-12-2023 Erythrocyte distribution width (RBC) [Ratio] 13.9 % Normal 11.5 - 14.5 [facility] Comment on above: Performed By: #### C #### [address] [id number] Hematocrit (Bld) [Volume fraction] 39.3 % Normal 36.0 - 46.0 [facility] Comment on above: Performed By: #### C BC #### [address] [id number] Hemoglobin (Bld) [Mass/Vol] 12.8 g/dL Normal 12.0 - 16.0 [facility] Comment on above: Performed By: #### C BC #### [address] [id number] MCHC (RBC) [Mass/Vol] 32.6 g/dL Normal 32.0 - 36.0 [facility] Comment on above: Performed By: #### C BC #### [address] [id number] MCV (RBC) [Entitic vol] 96 fL Normal 80 - 100 [facility] Comment on above: Performed By: #### C BC #### [address] [id number] Platelets (Bld) [#/Vol] 335 10*3/uL Normal 150 - 450 [facility] Comment on above: Performed By: #### C BC #### [address] [id number] RBC 4.11 x10E12/L Normal 4.00 - 5.20 [facility] Comment on above: Performed By: #### C BC #### [address] [id number] WBC (Bld) [#/Vol] 13.6 10*3/uL High 4.4 - 11.3 [facility] Comment on above: Performed By: #### C BC #### [address] [id number] Laboratory - Coagulationon 0 - INR Coag (PPP) [Relative time] 1.0 {INR} 0.9 - 1.1 [facility] [place] [address] DO Work Phone: PT Coag (PPP) [Time] 11.1 s 9.8 - 12.8 [facility] [place] [address] DO Work Phone: Comment on above: Note new reference nicole jj as of 02/22/2023 at 10:00am. Laboratory - Hematology and Cell countson 03-12-2023 Erythrocyte distribution width (RBC) [Ratio] 13.9 % See Below [facility] [address] DO Work Phone: Comment on above: Reference Range: 11. 5 - 14.5 Hematocrit (Bld) [Volume fraction] 39.3 % See Below [facility] 1099 DO Work Phone: Comment on above: Reference Range: 36. 0 - 46.0 Hemoglobin (Bld) [Mass/Vol] 12.8 g/dL See Below [facility] [place] [address] DO Work Phone: Comment on above: Reference Range: 12. 0 - 16.0 MCHC (RBC) [Mass/Vol] 32.6 g/dL See Below [facility] [place] [address] DO Work Phone: Comment on above: Reference Range: 32. 0 - 36.0 MCV (RBC) [Entitic vol] 96 fL 80 - 100 [facility] [place] [address] DO Work Phone: Platelets (Bld) [#/Vol] 335 10*3/uL 150 - 450 [facility] [address]99 DO Work Phone: RBC (Bld) [#/Vol] 4.11 {x10E12/L} See Below [facility] [address] DO Work Phone: Comment on above: Reference Range: 4.0 0 - 5.20 WBC (Bld) [#/Vol] 13.6 10*3/uL above high threshold 4.4 - 11.3 [facility] [address]99 DO Work Phone: PT/INRon 03-12-2023 PT Coag (PPP) [Time] 11.1 s Normal 9.8 - 12.8 [facility] Comment on above: Result Comment: Note new reference range as of 02/22/2023 at 10:00am. Performed By: #### P TINR #### [facility] [address] [place], [place] [id number] PT, INR 1.0 Normal 0.9 - 1.1 [facility] Comment on above: Performed By: #### P TINR #### [facility] [address] [place], [place] [phone] Established Visit (Orthopaed ic Surgery)on 02-10-2023 Established Visit (Orthopaedic Surgery) Diagnoses/Problems Assessed Lumbar radiculopathy, right (724.4) (M54.16) Lumbar pain (724.2) (M54.50) Orders Lumbar pain, Lumbar radiculopathy, right CT L-Spine Post Myelogram; Status:Active; Requested for:[id number]; Patient taking Metformin or Derivatives? : No Radiologist to Determine Optimal Study : Y What are the patient's signs and symptoms? : right lumbar radiculopathy. History of scoliosis s/p thoracolumbar fusion Lumbar radiculopathy, right Xray Myelography Lumbosacral with LP; Status:Active; Requested for:[id number]; Radiologist to Determine Optimal Study : Y [...] Oral Tablet Vitamin D (Ergocalciferol) 1.25 MG (37755 UT) Oral Capsule Signatures Electronically signed by [...] around 2018 in 2019 while living in [place] she was seeing pain management who tried caudal injections which did not help. She is also tried multiple medications such as Cymbalta and Lyrica without any relief. She was started on gabapentin which initially did provide relief of her leg pain but now she still has a lot of foot pain. She describes as a burning sensation. She then since moved back to [place] and has been seeing physicians at [facility]. Most of her care is done at [facility]. She was seeing pain management with Dr. [...] taking yet. 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 She does not smoke occasionally drinks alcohol [...] easy bruis (more content not included)... Normal [employer] No Panel Informationon 02-10 Normal [facility] [employer] Work Phone: SPINE, LUMBOSACRAL; MIN 4 EWSon 02-10-2023 SPINE, LUMBOSACRAL; MIN 4 VIEWS Patient Name: HUE TITUS STUDY: SPINE, LUMBOSACRAL MIN 4 VIEWS; 02/10/2023 1:48 pm INDICATION: LUMBAR PAIN M54.50: Lumbar pain. COMPARISON: None. ACCESSION NUMBER(S): [id number] ORDERING CLINICIAN: TERRIE BROWN FINDINGS: Lumbar spine, [...] L5-S1 Electronically signed by: JACQUELINE GLORIA MD [facility] No Panel Informationon 02-08 IMPRESSION: Please see result. Composition Roll Maker And Cutter: RADHA Transcribe Date/Time: Feb 08 2023 4:22P Dictated by : ASHLEY MIRANDA MD This examination was interpreted and the report reviewed and electronically signed by: ASHLEY MIRANDA MD on Feb 08 2023 4:23PM [facility] DIVISION OF RADIOLOGY Radiology Study observation (narrative) [facility] No Panel InformationOrdered By: Ccf Provider on 02-08-2023 [facility] XR Scapula - right AP and La teralon 02-08-2023 * * *Final Report* * * DATE [...] Hardware appears intact. No definite scapular fracture. [facility] * * *Final Report* * * DATE [...] Hardware appears intact. No definite scapular fracture. IMPRESSION IMPRESSION: Please see result. Composition Roll Maker [employer] Cutter: PSCB Transcribe Date/Time: Feb 08 2023 4:22P Dictated by : ASHLEY MIRANDA MD This examination was interpreted and the report reviewed and electronically signed by: ASHLEY MIRANDA MD on Feb 08 2023 4:23PM [facility] XR Thoracic spine AP and Lat eral and [place] 02-08-2023 * * *Final Report* * * DATE [...] Hardware appears intact. No definite scapular fracture. DIVISION OF RADIOLOGY Provider, Ccf [facility] - 02/08/2023 * * *Final Report* * * DATE [...] Hardware appears intact. No definite scapular fracture. IMPRESSION IMPRESSION: Please see result. Composition [employer] Maker [employer] Cutter: RADHA Transcribe Date/Time: Feb 08 2023 4:22P Dictated by : ASHLEY MIRANDA MD This examination was interpreted and the report reviewed and electronically signed by: ASHLEY MIRANDA MD on Feb 08 2023 4:23PM EST [facility] Renal function 2000 panelon 12-23-2022 Albumin [Mass/Vol] 4.4 g/dL 3.9 - 4.9 g/dL [facility] Anion gap [Moles/Vol] 9 mmol/L 9 - 18 mmol/L [facility] Calcium [Mass/Vol] 9.4 mg/dL 8.5 - 10. 2 mg/dL [facility] Chloride [Moles/Vol] 102 mmol/L 97 - 10 5 mmol/L [facility] CO2 [Moles/Vol] 28 mmol/L 22 - 30 mmol/L [facility] Creatinine [Mass/Vol] 0.72 mg/dL 0.58 - 0.96 mg/dL [facility] Estimated Glomerular Filtration Rate 115 mL/min/1.73m >=60 mL/min/1.73m [facility] Glucose [Mass/Vol] 82 mg/dL 74 - 99 mg/dL [facility] Phosphate [Mass/Vol] 3.1 mg/dL 2.7 - 4 .8 mg/dL [facility] Potassium [Moles/Vol] 4.4 mmol/L 3.7 - 5.1 mmol/L [facility] Sodium [Moles/Vol] 139 mmol/L 136 - 144 mmol/L [facility] Urea nitrogen [Mass/Vol] 13 mg/dL 7 - 21 mg/dL [facility] No Panel Informationon 12-22 [facility] CBC W Auto Differential pane l (Bld)on 07-24-2022 Basophils (Bld) [#/Vol] 0.04 10*3/uL Normal <0.11 [facility] Comment on above: Order Comment: Speci men Type: BLOOD SPECIMEN Ordering Facility: [facility] Address: [address] [address] Performed By: #### 5 7021-8 #### [facility] [place] [id number] [address] [place] [address] [place] Basophils/100 WBC (Bld) 0.5 % Normal [facility] Comment on above: Order Comment: Speci men Type: BLOOD SPECIMEN Ordering Facility: [facility] Address: [address] [address] Performed By: #### 5 7021-8 #### [facility] IA [id number] [place] [address] [place] Differential cell count method Nom (Bld) Auto Normal [facility] Comment on above: Order Comment: Speci men Type: BLOOD SPECIMEN Ordering Facility: [facility] Address: [address] [address] Performed By: #### 5 7021-8 #### [facility] [place] [id number] [address] [place] [address] [place] Eosinophils (Bld) [#/Vol] 0.14 10*3/uL Normal <0.46 [facility] Comment on above: Order Comment: Speci men Type: BLOOD SPECIMEN Ordering Facility: [facility] Address: [address] [address] Performed By: #### 5 7021-8 #### [facility] IA [id number] [address] [place] [address] [place] Eosinophils/100 WBC (Bld) 1.8 % Normal [facility] Comment on above: Order Comment: Speci men Type: BLOOD SPECIMEN Ordering Facility: [facility] Address: [address] [place] [address] Performed By: #### 5 7021-8 #### [facility] IA [id number] [address] [place] [address] [place] Erythrocyte distribution width (RBC) [Ratio] 12.9 % Normal 11.5-15.0 [facility] Comment on above: Order Comment: Speci men Type: BLOOD SPECIMEN Ordering Facility: [facility] Address: [address] [address] Performed By: #### 5 7021-8 #### [facility] IA [id number] [address] [place] [address] [place] Hematocrit (Bld) [Volume fraction] 38.8 % Normal 36.0-46.0 [facility] Comment on above: Order Comment: Speci men Type: BLOOD SPECIMEN Ordering Facility: [facility] Address: [address] [address] Performed By: #### 5 7021-8 #### [facility] IA [id number] [address] [place] [address] [place] Hemoglobin (Bld) [Mass/Vol] 13.0 g/dL Normal 11.5-15.5 [facility] Comment on above: Order Comment: Speci men Type: BLOOD SPECIMEN Ordering Facility: [facility] Address: [address] [address] Performed By: #### 5 7021-8 #### [facility] IA [id number] [address] [place] [address] [place] Immature granulocytes (Bld) [#/Vol] 10*3/uL Normal <0.10 [facility] Comment on above: Order Comment: Speci men Type: BLOOD SPECIMEN Ordering Facility: [facility] Address: [address] [address] Performed By: #### 5 7021-8 #### [facility] IA [id number] [address] [place] [address] [place] Immature granulocytes/100 WBC (Bld) 0.3 % Normal [facility] Comment on above: Order Comment: Speci men Type: BLOOD SPECIMEN Ordering Facility: [facility] Address: [address] [address] Performed By: #### 5 7021-8 #### [facility] IA [id number] [address] [place] [address] [place] Lymphocytes (Bld) [#/Vol] 3.16 10*3/uL Normal 1.00-4.00 [facility] Comment on above: Order Comment: Speci men Type: BLOOD SPECIMEN Ordering Facility: [facility] Address: [address] [address] Performed By: #### 5 7021-8 #### [facility] CLIA [id number] [address] [place] Lymphocytes/100 WBC (Bld) 41.5 % Normal [facility] Comment on above: Order Comment: Speci men Type: BLOOD SPECIMEN Ordering Facility: [facility] Address: [address] [address] Performed By: #### 5 7021-8 #### [facility] IA [id number] [place] [address] [place] MCH (RBC) [Entitic mass] 30.0 pg Normal 26.0-34.0 [facility] Comment on above: Order Comment: Speci men Type: BLOOD SPECIMEN Ordering Facility: [facility] Address: [address] [address] Performed By: #### 5 7021-8 #### [facility] IA [id number] [address] [place] [address] [place] MCHC (RBC) [Mass/Vol] 33.5 g/dL Normal 30.5-36.0 [facility] Comment on above: Order Comment: Speci men Type: BLOOD SPECIMEN Ordering Facility: [facility] Address: [address] [address] Performed By: #### 5 7021-8 #### [facility] IA [id number] [address] [place] [address] [place] MCV (RBC) [Entitic vol] 89.6 fL Normal 80.0-100.0 [facility] Comment on above: Order Comment: Speci men Type: BLOOD SPECIMEN Ordering Facility: [facility] Address: [address] [address] Performed By: #### 5 7021-8 #### [facility] CLIA [id number] [facility] [place] [address] [place] Monocytes (Bld) [#/Vol] 0.88 10*3/uL High <0.87 [facility] Comment on above: Order Comment: Speci men Type: BLOOD SPECIMEN Ordering Facility: [facility] Address: [address] [address] Performed By: #### 5 7021-8 #### [facility] IA [id number] [address] [place] [address] [place] Monocytes/100 WBC (Bld) 11.6 % Normal [facility] Comment on above: Order Comment: Speci men Type: BLOOD SPECIMEN Ordering Facility: [facility] Address: [address] [address] Performed By: #### 5 7021-8 #### [facility] IA [id number] [address] [place] [address] [place] Neutrophils (Bld) [#/Vol] 3.37 10*3/uL Normal 1.45-7.50 [facility] Comment on above: Order Comment: Speci men Type: BLOOD SPECIMEN Ordering Facility: [facility] Address: [address] [place] [address] Performed By: #### 5 7021-8 #### [facility] IA [id number] [address] [place] [address] [place] Neutrophils/100 WBC (Bld) 44.3 % Normal [facility] Comment on above: Order Comment: Speci men Type: BLOOD SPECIMEN Ordering Facility: [facility] Address: [address] [address] Performed By: #### 5 7021-8 #### [facility] IA [id number] [address] [place] [address] [place] Nucleated RBC (Bld) [#/Vol] 10*3/uL Normal <0.01 [facility] Comment on above: Order Comment: Speci men Type: BLOOD SPECIMEN Ordering Facility: [facility] Address: [address] [address] Performed By: #### 5 7021-8 #### [facility] IA [id number] [address] [place] [address] [place] Nucleated RBC/100 WBC (Bld) [Ratio] 0.0 /100 WBC Normal [facility] Comment on above: Order Comment: Speci men Type: BLOOD SPECIMEN Ordering Facility: [facility] Address: [address] [address] Performed By: #### 5 7021-8 #### [facility] IA [id number] [address] [place] [address] [place] Platelet mean volume (Bld) [Entitic vol] 9.0 fL Normal 9.0-12.7 [facility] Comment on above: Order Comment: Speci men Type: BLOOD SPECIMEN Ordering Facility: [facility] Address: [address] [address] Performed By: #### 5 7021-8 #### [facility] IA [id number] [address] [place] [address] [place] Platelets (Bld) [#/Vol] 347 10*3/uL Normal 150-400 [facility] Comment on above: Order Comment: Speci men Type: BLOOD SPECIMEN Ordering Facility: [facility] Address: [address] [address] Performed By: #### 5 7021-8 #### [facility] IA [id number] [address] [place] [address] [place] RBC (Bld) [#/Vol] 4.33 10*6/uL Normal 3.90-5.20 [facility] Comment on above: Order Comment: Speci men Type: BLOOD SPECIMEN Ordering Facility: [facility] Address: [address] [address] Performed By: #### 5 7021-8 #### [facility] IA [id number] [address] [place] [address] [place] WBC (Bld) [#/Vol] 7.61 10*3/uL Normal 3.70-11.00 [facility] Comment on above: Order Comment: Speci men Type: BLOOD SPECIMEN Ordering Facility: [facility] [address] [place] [address] Performed By: #### 5 7021-8 #### [facility] CLIA [id number] [address] [place] [address] [facility] Comprehensive metabolic 2000 panelon 07-24-2022 Albumin [Mass/Vol] 4.2 g/dL Normal 3.9-4.9 [facility] Comment on above: Order Comment: Speci men Type: BLOOD SPECIMENOrdering Facility: [facility] Address: [address] [address] Performed By: #### 3 040-3, 02157-3, 12378-0, 3016-3 ####[facility]ORYCLIA [id number] [place] [address] [place] ALP [Catalytic activity/Vol] 49 U/L Normal 34-123 [facility] Comment on above: Order Comment: Speci men Type: BLOOD SPECIMENOrdering Facility: [facility] Address: [address] [address] Performed By: #### 3 040-3, 69033-1, 70162-7, 3016-3 ####[facility]ATORYCLIA [id number] [place] [address] [place] ALT [Catalytic activity/Vol] 11 U/L Normal 7-38 [facility] Comment on above: Order Comment: Speci men Type: BLOOD SPECIMENOrdering Facility: [facility] Address: [address] [address] Performed By: #### 3 040-3, 81761-3, 62989-1, 3016-3 ####[facility] LAB[facility]ATORYCLIA [id number] [place] [address] [place] Anion gap [Moles/Vol] 7 mmol/L Low 9-18 [facility] Comment on above: Order Comment: Speci men Type: BLOOD SPECIMENOrdering Facility: [facility] Address: [address] [address] Performed By: #### 3 040-3, 02822-2, 59010-1, 3 ####[facility]ORY[facility] [id number] [place] [address] [place] AST [Catalytic activity/Vol] 14 U/L Normal 13-35 [facility] Comment on above: Order Comment: Speci men Type: BLOOD SPECIMENOrdering Facility: [facility] Address: [address] [address] Performed By: #### 3 040-3, 23101-5, 69904-5, 3 ####[facility] [id number] [place] [address] [place] Bilirubin [Mass/Vol] 0.3 mg/dL Normal 0.2-1.3 [facility] Comment on above: Order Comment: Speci men Type: BLOOD SPECIMENOrdering Facility: [facility] Address: [address] [place] [address] Performed By: #### 3 040-3, 78338-5, 97640-1, 3 ####[facility] [id number] [place] [address] [place] Calcium [Mass/Vol] 9.3 mg/dL Normal 8.5-10.2 [facility] Comment on above: Order Comment: Speci men Type: BLOOD SPECIMENOrdering Facility: [facility] Address: [address] [address] Performed By: #### 3 040-3, 35065-3, 54767-4, 3015-3 ####[facility] [id number] [place] [address] [place] Chloride [Moles/Vol] 103 mmol/L Normal 97-105 [facility] Comment on above: Order Comment: Speci men Type: BLOOD SPECIMENOrdering Facility: [facility] Address: [address] Performed By: #### 3 040-3, 90703-8, 86025-0, 3016-3 ####[facility]ORY[facility] [id number] [place] [address] [place] CO2 [Moles/Vol] 29 mmol/L Normal 22-30 [facility] Comment on above: Order Comment: Speci men Type: BLOOD SPECIMENOrdering Facility: [facility] Address: [address] [address] Performed By: #### 3 040-3, 50828-4, 80986-0, 6-3 ####[facility] [id number] [address] [place] Creatinine [Mass/Vol] 0.84 mg/dL Normal 0.58-0.96 [facility] Comment on above: Order Comment: Speci men Type: BLOOD SPECIMENOrdering Facility: [facility] Address: [address] [address] Performed By: #### 3 040-3, 36246-5, 86159-0, 6-3 ####[facility] [id number] [address] [place] ESTIMATED GLOMERULAR FILTRATION RATE 95 mL/min/1.73m??? Normal >=60 [facility] Comment on above: Order Comment: Speci men Type: BLOOD SPECIMENOrdering Facility: [facility] Address: [address] [place] [address] Result Comment: Anabela mated Glomerular Filtration Rate [...] actual GFR. Performed By: #### 3 040-3, 70227-4, 24308-3, 3016-3 ####[facility]ORYIA [id number] [place] [address] [place] Glucose [Mass/Vol] 55 mg/dL Low 74-99 [facility] Comment on above: Order Comment: Speci men Type: BLOOD SPECIMENOrdering Facility: [facility] Address: [address] [place] [address] Result Comment: The [place] [employer] (ADA) provides guidance for cutoff [...] Standards of Medical Care in Diabetes 2016, [place] [employer]. Diabetes Care. 2016.39(Suppl 1). Performed By: #### 3 040-3, 84158-2, 64600-4, 3015-3 ####[facility] [id number] [place] [address] [place] Potassium [Moles/Vol] 3.6 mmol/L Low 3.7-5.1 [facility] Comment on above: Order Comment: Leticiai men Type: BLOOD SPECIMENOrdering Facility: [facility] Address: [address] [place] [address] Performed By: #### 3 040-3, 11178-1, 71840-4, 6-3 ####[facility] [id number] [place] [address] [place] Protein [Mass/Vol] 6.9 g/dL Normal 6.3-8.0 [facility] Comment on above: Order Comment: Speci men Type: BLOOD SPECIMENOrdering Facility: [facility] Address: [address] [place] [address] Performed By: #### 3 040-3, 60975-6, 37677-8, 3016-3 ####[facility] LABORATORYCLIA [id number] [place] [address] [place] Sodium [Moles/Vol] 139 mmol/L Normal 136-144 [facility] Comment on above: Order Comment: Speci men Type: BLOOD SPECIMENOrdering Facility: [facility] Address: [address] [place] [address] Performed By: #### 3 040-3, 99586-8, 53452-7, 6-3 ####[facility] LABORATORYCLIA [id number] [place] [address] [place] Urea nitrogen [Mass/Vol] 13 mg/dL Normal 7-21 [facility] Comment on above: Order Comment: Speci men Type: BLOOD SPECIMENOrdering Facility: [facility] Address: [address] [place] [address] Performed By: #### 3 040-3, 53246-6, 24060-1, 6-3 ####[facility] LABORATORYCLIA [id number] [place] [address] [place] D dimer FEU PPP-mCncon 07-24 Fibrin D-dimer FEU (PPP) [Mass/Vol] <190 Normal <500 [facility] Comment on above: Order Comment: Speci men Type: BLOOD SPECIMEN Ordering Facility: [facility] Address: [address] [place] [address] Performed By: #### 4 8065-7 #### [facility] CLIA [id number] [place] [address] [place] ECG COMPLETEon 07-24-2022 ECG COMPLETE Ventricular Rate : 8 8 BPM Atrial Rate : 197 BPM QRS Duration : 100 ms Q-T Interval : 367 ms QTC Calculation(Bazett) : 444 ms Calculated R [place] : 81 degrees Calculated T [place] : 81 degrees Atrial fibrillation RSR' in V1 or V2, probably normal variant Nonspecific T abnrm, anterolateral leads Abnormal ECG 401 no stemi Confirmed by EMILY ROSE, BEN ([id number]), associate editor Beatriz Ferguson ([id number]) on 07/24/2022 2:29:25 PM NAME : HUE AGUILAR PID : [id number] : 1990 Gender : Female Race : Unknown ORD : [id number] Procedure Date : Jul 24 2022 04:01:09 Edit Date : Jul 24 2022 14:29:26 Diagnosis: Atrial fibrillation RSR' in V1 or V2, probably normal variant Nonspecific T abnrm, anterolateral leads Abnormal ECG 401 no stemi Confirmed by BEN DIAZ MD ([id number]), associate editor Beatriz Ferguson ([id number]) on 07/24/2022 2:29:25 PM Test Reason : Chest Pain Location : 302 : ED AVED-14 Overread By : BEN DIAZ MD Edited By : Beatriz Ferguson Referred By : , Acquired by : [id number], [facility] ED NOTEon 07-24-2022 ED NOTE HNO ID: [id number] Author: Brittni Fierro RN Service: ? Author Type: Registered Nurse Type: ED Notes Filed: 07/24/2022 5:12 AM Note Text: Pt given instructions on discharge, medication, and follow-up. Pt educated on when to return to the ED with worsening of symptoms. Pt verbalized understanding with no further questions. Saline lock D/C. Pt ambulated with a steady gait at discharge. Pt discharged home with family. [facility] ED NOTE HNO ID: [id number] Author: Kelli Michel RN Service: ? Author Type: Registered Nurse Type: ED Notes Filed: 07/24/2022 2:58 AM Note Text: Ambulatory to bathroom with steady gait. Attempting urine collection. [facility] ED NOTE HNO ID: [id number] Author: Marjorie Lopez RN Service: ? Author Type: Registered Nurse Type: ED Notes Filed: 07/24/2022 2:36 AM Note Text: See downtime forms. [facility] ED NOTE HNO ID: [id number] Author: Kelli Michel RN Service: ? Author Type: Registered Nurse Type: ED Notes Filed: 07/23/2022 11:14 PM Note Text: Xray at bedside. [facility] ED NOTE HNO ID: [id number] Author: Garry Haro RN Service: Nursing Author Type: Registered Nurse Type: ED Notes Filed: 07/23/2022 10:50 PM Note Text: Pt states palpitations today Plan of care -Monitor Patient's Vital Signs -Monitor pain -Maintain patient safety and privacy -Provide comfort measures as needed -Call light in place -Siderails up, bed in locked and low position. [facility] ED PROV NOTEon 07-24-2022 ED PROV NOTE HNO ID: [id number] Author: Ben Diaz DO Service: Emergency Medicine [...] following components: Result Value Ref Range Abs [place] 0.88 (*) <0.87 k/uL All other components [...] years wi (more content not included)... Normal [facility] EKGon 07-24-2022 Electrocardiogram Ventricular Rate : 130 BPM Atrial Rate : 138 BPM QRS Duration : 78 ms Q-T Interval : 300 ms QTC Calculation(Bazett) : 441 ms Calculated R [place] : 77 degrees Calculated T [place] : 62 degrees Atrial fibrillation with rapid ventricular response Nonspecific T wave abnormality Abnormal ECG 2257 Atrial fibrillation with rapid ventricular response no stemi Confirmed by MD MILLER CHRISTOPHER ([id number]), associate editor Beatriz Ferguson ([id number]) on 07/24/2022 2:26:58 PM NAME : HUE AGUILAR PID : [id number] : 1990 Gender : Female Race : Unknown ORD : Procedure Date : Jul 23 2022 22:56:02 Edit Date : Jul 24 2022 14:27:01 Diagnosis: Atrial fibrillation with rapid ventricular response Nonspecific T wave abnormality Abnormal ECG 2257 Atrial fibrillation with rapid ventricular response no stemi Confirmed by MD MILLER CHRISTOPHER ([id number]), associate editor Beatriz Ferguson ([id number]) on 07/24/2022 2:26:58 PM Test Reason : Location : 302 : ED ED Overread By : MD MILLER CHRISTOPHER Edited By : Beatriz Ferguson Referred By : , Acquired by : , Normal [facility] HIGH SENSITIVITY TROPONIN T (INITIAL)on 07-24-2022 HIGH SENSITIVITY MELINDA 8 ng/L Normal <12 [facility] Comment on above: Order Comment: Speci men Type: BLOOD SPECIMENOrdering Facility: [facility] Address: [address] [place] [id number] Result Comment: When assessing risk for acute [...] 30 day MACE. Performed By: #### L [id number] ####[facility] LABORATORYCLIA [id number] [place] [address] [place] HIGH SENSITIVITY TROPONIN T (SECOND)on 07-24-2022 HIGH SENSITIVITY MELINDA 8 ng/L Normal <12 [facility] Comment on above: Order Comment: Dada arenas Type: BLOOD SPECIMENOrdering Facility: [facility] Address: [address] [place] [address] Result Comment: When assessing risk for acute [...] 30 day MACE. Performed By: #### L [id number] ####[facility] LABORATORYIA [id number] [place] [address] [place] Lipase SerPl-cCncon 07-24-20 22 Lipase [Catalytic activity/Vol] 47 U/L Normal 16-61 [facility] Comment on above: Order Comment: Dada arenas Type: BLOOD SPECIMENOrdering Facility: [facility] Address: [address] [place] [address] Performed By: #### 3 040-3, 40279-7, 02855-7, 3016-3 ####[facility]IA [id number] [place] [address] [place] Magnesium SerPl-mCncon 07-24 Magnesium [Mass/Vol] 2.1 mg/dL Normal 1.7-2.3 [facility] Comment on above: Order Comment: Dada arenas Type: BLOOD SPECIMENOrdering Facility: [facility] Address: [address] [place] [address] Performed By: #### 3 040-3, 28826-5, 29520-2, 6-3 ####[facility] LABORATORYCLIA [id number] [facility] [place] [address] [place] NT-proBNP [facility]-mCncon 07-24 Natriuretic peptide.B prohormone N-Terminal [Mass/Vol] 345 pg/mL High <125 [facility] Comment on above: Order Comment: Speci men Type: BLOOD SPECIMENOrdering Facility: [facility] Address: [facility] [address] Performed By: #### 3 3762-6 ####[facility]ITAL[facility]IA [id number] [facility] [place] [address] [place] TSH SerPl-aCncon 07-24-2022 TSH Qn 1.850 m[IU]/L Normal 0.270-4.200 [facility] Comment on above: Order Comment: Speci men Type: BLOOD SPECIMENOrdering Facility: [facility] Address: [place] [id number] Result Comment: If t he patient is , TSH reference range varies by gestational period: First Trimester (weeks 9-12): 0.180-2.990 mIU/L Second Trimester: 0.110-3.980 mIU/L Third Trimester: 0.480-4.710 mIU/L Pedro Lim et al. A Practical Approach for the Verifications and Determination of Site- and Trimester-Specific Reference Intervals for Thyroid Function tests in . Thyroid, 2019:29:3:412-420. Jam E, et al. 2017 Guidelines of the [place] Thyroid Association for the Diagnosis and Management of Thyroid Disease during and the . Thyroid, 2017:27:3:315-389. Performed By: #### 3 040-3, 10991-8, 92354-5, 6-3 ####[facility] LABORATORYCLIA [id number] [place] [address] [place] XR CHEST 1V [...] Payne rods. IMPRESSION: No acute radiographic abnormality. Composition Roll Maker And Cutter: RADHA Transcribe Date/Time: Jul 23 2022 11:19P Dictated by : HONG MEDRANO MD This examination was interpreted and the report reviewed and electronically signed by: HONG MEDRANO MD on Jul 23 2022 11:19PM EST [id number] [facility] Vital Signs Date Time Vital Sign Value Performing Clinician Facility 09-12-2023 13:20-0500 Body height 171.45 cm [facility] Other [facility] Other 09-12-2023 13:20-0500 Body mass index (BMI) [Ratio] 22.99 kg/m2 [facility] Other [facility] Other 09-12-2023 13:20-0500 Body weight 67.59 kg [facility] Other [facility] Other 05-27-2023 13:40-0400 Body height 170.2 cm Jessee Fried MD Work Phone: [facility] 05-27-2023 13:40-0400 Body weight 65.77 kg Jessee Fried MD Work Phone: [facility] 05-27-2023 13:40-0400 Diastolic blood pressure 76 mm[Hg] Jessee Fried MD Work Phone: [facility] 05-27-2023 13:40-0400 Heart rate 97 /min Jessee Fried MD Work Phone: [facility] 05-27-2023 13:40-0400 Systolic blood pressure 124 mm[Hg] Jessee Fried MD Work Phone: [facility] 05-26-2023 13:29-0400 Diastolic blood pressure 87 mm[Hg] Ashwini Finefrock PA-C Work Phone: [facility] 05-26-2023 13:29-0400 Systolic blood pressure 122 mm[Hg] Ashwini Finefrock PA-C Work Phone: [facility] 05-26-2023 13:11-0400 Body height 170.2 cm Ashwini Finefrock PA-C Work Phone: [facility] 05-26-2023 13:11-0400 Body temperature 98.29 [degF] Ashwini Finefrock PA-C Work Phone: [facility] 05-26-2023 13:11-0400 Body weight 64.41 kg Ashwini Finefrock PA-C Work Phone: [facility] 05-26-2023 13:11-0400 Heart rate 71 /min Ashwini Finefrock PA-C Work Phone: [facility] 05-26-2023 13:11-0400 SaO2% (BldA) [Mass fraction] 98 % Ashwini Finefrock PA-C Work Phone: [facility] 02-22-2023 14:21-0400 Body height 170.2 cm Ashwini Finefrock PA-C Work Phone: [facility] 02-22-2023 14:21-0400 Body weight 56.25 kg Ashwini Finefrock PA-C Work Phone: [facility] 02-22-2023 14:21-0400 Diastolic blood pressure 79 mm[Hg] Ashwini Finefrock PA-C Work Phone: [facility] 02-22-2023 14:21-0400 Heart rate 90 /min Ashwini Finefrock PA-C Work Phone: [facility] 02-22-2023 14:21-0400 SaO2% (BldA) [Mass fraction] 98 % Ashwini Finefrock PA-C Work Phone: [facility] 02-22-2023 14:21-0400 Systolic blood pressure 110 mm[Hg] Ashwini Finefrock PA-C Work Phone: [facility] 02-08-2023 15:30-0400 Body height 170.2 cm Lien Mizanin PA-C Work Phone: [facility] 02-08-2023 15:30-0400 Body weight 55.79 kg Lien Mizanin PA-C Work Phone: [facility] 02-08-2023 15:30-0400 Diastolic blood pressure 84 mm[Hg] Lien Mizanin PA-C Work Phone: [facility] 02-08-2023 15:30-0400 Heart rate 71 /min Lien Mizanin PA-C Work Phone: [facility] 02-08-2023 15:30-0400 SaO2% (BldA) [Mass fraction] 98 % Lien Mizanin PA-C Work Phone: [facility] 02-08-2023 15:30-0400 Systolic blood pressure 128 mm[Hg] Lien Mizanin PA-C Work Phone: [facility] 02-04-2023 11:16-0400 Diastolic blood pressure 82 mm[Hg] Lien Mizanin PA-C Work Phone: [facility] 02-04-2023 11:16-0400 Systolic blood pressure 124 mm[Hg] Lien Mizanin PA-C Work Phone: [facility] 02-04-2023 10:56-0400 Body height 170.2 cm Lien Mizanin PA-C Work Phone: [facility] 02-04-2023 10:56-0400 Body weight 55.34 kg Lien Mizanin PA-C Work Phone: [facility] 02-04-2023 10:56-0400 Heart rate 78 /min Lien Mizanin PA-C Work Phone: [facility] 02-04-2023 10:56-0400 SaO2% (BldA) [Mass fraction] 99 % Lien Mizanin PA-C Work Phone: [facility] 02-03-2023 14:55-0400 Body height 170.2 cm Myla Glasenapp PA-C Work Phone: [facility] 02-03-2023 14:55-0400 Body weight 55.43 kg Myla Glasenapp PA-C Work Phone: [facility] 02-03-2023 14:55-0400 Diastolic blood pressure 89 mm[Hg] Myla Glasenapp PA-C Work Phone: [facility] 02-03-2023 14:55-0400 Heart rate 80 /min Myla Glasenapp PA-C Work Phone: [facility] 02-03-2023 14:55-0400 Systolic blood pressure 152 mm[Hg] Myla Glasenapp PA-C Work Phone: [facility] 12-22-2022 08:20-0400 Body height 171.5 cm Marco Mendteri DO Work Phone: [facility] 12-22-2022 08:20-0400 Body weight 50.8 kg Marco Oviedo DO Work Phone: [facility] 12-22-2022 08:20-0400 Diastolic blood pressure 87 mm[Hg] Marco Oviedo DO Work Phone: [facility] 12-22-2022 08:20-0400 Heart rate 67 /min Marco Oviedo DO Work Phone: [facility] 12-22-2022 08:20-0400 Respiratory rate 16 /min Marco Oviedo DO Work Phone: [facility] 12-22-2022 08:20-0400 SaO2% (BldA) [Mass fraction] 100 % Marco Oviedo DO Work Phone: [facility] 12-22-2022 08:20-0400 Systolic blood pressure 129 mm[Hg] Marco Oviedo DO Work Phone: [facility] 09-27-2022 09:10-0500 Body height 170.2 cm Jessee Fried MD Work Phone: [facility] 09-27-2022 09:10-0500 Body weight 50.35 kg Jessee Fried MD Work Phone: [facility] 09-27-2022 09:10-0500 Diastolic blood pressure 78 mm[Hg] Jessee Fried MD Work Phone: [facility] 09-27-2022 09:10-0500 Heart rate 87 /min Jessee Fried MD Work Phone: [facility] 09-27-2022 09:10-0500 SaO2% (BldA) [Mass fraction] 99 % Jessee Fried MD Work Phone: [facility] 09-27-2022 09:10-0500 Systolic blood pressure 110 mm[Hg] Jessee Fried MD Work Phone: [facility] Encounters Encounter Date Encounter Type Care Provider Facility Start: 11-16-2024 End: 11-16-2024 ambulatory Dileep Jim MD Work Phone: Pain Management Comment on above: Pre-Procedure Instru ctions and Arrival Time Start: 11-16-2024 End: 11-16-2024 E-mail encounter from caregiver Dileep Jim MD Work Phone: Pain Management Start: 11-15-2024 End: 11-15-2024 Telephone encounter Blessing Reyes IGLESIA.JACQUARD CARD CUTTER Work Phone: Pre Anesthesia Comment on above: PreOp Call (PACC) Start: 11-15-2024 Encounter for other preprocedural examination ASHWINI MATUTE [facility] Start: 11-15-2024 End: 11-15-2024 ambulatory SAVANNAH ROGER Facility:[facility] Start: 11-14-2024 End: 11-14-2024 ambulatory ERLINDA FRIEND Facility:[facility] Start: 11-14-2024 End: 11-14-2024 Patient encounter procedure Erlinda Friend HEAVY MACHINERY OPERATOR.JACQUARD CARD CUTTER Work Phone: Pain Management Comment on above: Complex regional isamar n syndrome type 1 of lower extremity, unspecified laterality (Primary Dx); Chronic pain syndrome; Pre-op testing Start: 11-14-2024 End: 11-14-2024 Patient encounter status Erlinda Jacksonhenson IGLESIA.JACQUARD CARD CUTTER Work Phone: [facility] Start: 11-07-2024 End: 11-07-2024 ambulatory DILEEP JIM Facility:[facility] Start: 11-05-2024 End: 11-05-2024 ambulatory Chucky Hernandez MD Facility:[facility] Start: 10-26-2024 End: 10-26-2024 ambulatory Dileep Jim MD Work Phone: Pain Management Comment on above: Pre-Procedure Instru ctions and Arrival Time Start: 10-26-2024 End: 10-26-2024 E-mail encounter from caregiver Dileep Jim MD Work Phone: Pain Management Start: 10-08-2024 End: 10-08-2024 Patient encounter procedure Huma Weiss PhD Work Phone: Pain Management Comment on above: Pain disorder with r elated psychological factors (Primary Dx); Complex regional pain syndrome type 1 of lower extremity, unspecified laterality Start: 10-08-2024 End: 10-08-2024 ambulatory HUMA WEISS Facility:[facility] Start: 09-13-2024 End: 09-13-2024 Telephone encounter Huma Weiss PhD Work Phone: Pain Management Comment on above: Appointment Start: 08-14-2024 End: 08-14-2024 ambulatory ASHWINI MATUTE Facility:[facility] Start: 08-14-2024 End: 08-14-2024 Office consultation new/estab patient 60 min Dileep Jim MD Work Phone: Pain Management Comment on above: Complex regional isamar n syndrome type 1 of lower extremity, unspecified laterality (Primary Dx); Chronic pain syndrome Start: 05-31-2024 End: 05-31-2024 Telephone encounter Ortega Wright MD Work Phone: Pain Management Comment on above: Appointment (New pat ient call) Start: 05-14-2024 End: 05-14-2024 ambulatory Chucky Hernandez MD Facility: [facility] Start: 04-09-2024 End: 04-09-2024 ambulatory Chucky Hernandez MD Facility: [facility] Start: 04-02-2024 End: 04-02-2024 ambulatory Chucky Hernandez MD Facility: [facility] Start: 02-27-2024 End: 02-27-2024 ambulatory Chucky Hernandez MD Facility: [facility] Start: 12-20-2023 End: 12-20-[facility] Start: 10-31-2023 End: 10-31-2023 ambulatory KIANA [facility] Start: 09-12-2023 End: 09-12-2023 Patient encounter procedure PHYSICIAN NO [facility] Work Phone: Start: 09-12-2023 End: 09-12-2023 ambulatory PHYSICIAN NO [facility] Work Phone: Start: 09-12-2023 Office outpatient ne w 45 minutes Lorie Townsend [facility] Start: 07-14-2023 End: 07-15-2023 ambulatory TERRIE BROWN [facility] Start: 07-14-2023 End: 07-14-2023 Office outpatient visit 25 minutes Terrie Brown MD Work Phone: [facility] Comment on above: Neuropathy (Primary Dx); Lumbar radiculopathy Start: 06-21-2023 ambulatory [facility] Start: 06-15-2023 Refill Ashwini Nguyễn inefrock PA-C Work Phone: [facility] Comment on above: Refill Request Start: 06-05-2023 Refill Ashwini Nguyễn inefrock PA-C Work Phone: [facility] Comment on above: Refill Request Start: 05-30-2023 Refill Ashwini Carina Nguyễn inefrock PA-C Work Phone: [facility] Comment on above: Refill Request Start: 05-27-2023 End: 05-27-2023 Patient encounter procedure Jessee Fried MD Work Phone: Cardiology Comment on above: Paroxysmal atrial fi brillation (HCC) (Primary Dx); Palpitations Start: 05-26-2023 End: 05-26-2023 Patient encounter procedure Ashwini Hoyosfrock PA-C Work Phone: [facility] Comment on above: Moderate episode of recurrent major depressive disorder (HCC) (Primary Dx); Attention deficit hyperactivity disorder (ADHD), unspecified ADHD type; Alcohol abuse; Juvenile idiopathic scoliosis of thoracolumbar region; Paroxysmal atrial fibrillation (HCC); Neuropathy; Encounter for immunization Start: 05-20-2023 Get Medical Advice Uri Hoyosfrock PA-C Work Phone: [facility] Comment on above: Adderall refill Start: 05-19-2023 Refill Ashwini Carina Nguyễn inefrock PA-C Work Phone: [facility] Comment on above: Refill Request Start: 05-18-2023 Refill Ashwini Nguyễn inefrock PA-C Work Phone: [facility] Comment on above: Refill Request Start: 05-15-2023 Refill Ashwini Nguyễn inefrock PA-C Work Phone: [facility] Comment on above: Refill Request Start: 04-27-2023 Refill Lien Lim Theodora anin PA-C Work Phone: [facility] Comment on above: Refill Request Start: 04-26-2023 Refill Ashwini Nguyễn inefrock PA-C Work Phone: [facility] Comment on above: Refill Request Start: 04-21-2023 Get Medical Advice Marybakari Lim Finefrock PA-C Work Phone: [facility] Comment on above: Adderall refill Start: 04-12-2023 ambulatory Ashwini Nguyễn inefrock PA-C Work Phone: [facility] Start: 04-12-2023 Letter encounter Ashwini Carina Finefrock PA-C Work Phone: [facility] Comment on above: Letter for Disabilit y Start: 03-31-2023 Refill Ashwini Nguyễn inefrock PA-C Work Phone: [facility] Start: 03-22-2023 ambulatory Ashwini Nguyễn inefrock PA-C Work Phone: [facility] Comment on above: Resend prescription Refill Request Med refill Start: 2023 Chart Update Ashwiniloreto Nguyễn inefrock Work Phone: TC-Gpyjnndlcisb-Qbjcgg an Work Phone: Start: 03-14-2023 End: 03-14-2023 Get Medical Advice Ashwini Hoyosfrock PA-C Work Phone: [facility] Comment on above: Medication refills Low back pain, unspe cified; Radiculopathy, lumbar region; Arthrodesis status Start: 03-14-2023 Chart Update Ashwiniloreto hancock Work Phone: LC-Lmisjfxbkhzz-E [place] [address] DO Work Phone: Start: 03-09-2023 AUDIT Ashwini Lmi Gopi sylvesterfrock Work Phone: WT-Ktxjvqpoofrz-Hrgxkt an Work Phone: Start: 02-25-2023 ambulatory Myla Linwoodpp PA-C Work Phone: [facility] Start: 02-25-2023 Patient encounter procedure Myla Lionenapp PA-C Work Phone: OB/Gynecology Comment on above: Upcoming appointment Start: 02-24-2023 Chart Update Ashwini Lim Gopi sylvesterfrjenniffer Work Phone: SA-Jgrwondsbagj-Ontyiu ke Work Phone: Start: 02-22-2023 End: 02-22-2023 Patient encounter procedure Ashwini Carina Romainfrock PA-C Work Phone: Internal Medicine [facility] Comment on above: Mild episode of recu rrent major depressive disorder (HCC) (Primary Dx); Attention deficit hyperactivity disorder (ADHD), unspecified ADHD type; Vitamin D deficiency Start: 02-10-2023 NPV, Provider: Terrie Brown, Status: Pen, Time: 1:30 PM Terrie Brown MD Work Phone: EE-Vwanemegfjpb-Cgiszp 107 DO Work Phone: Start: 02-10-2023 Office outpatient ne w 30 minutes Ashwini Matute Work Phone: HH-Ncvdylezgxsc-Utllva ke Work Phone: Start: 02-10-2023 Refill Ashwini Lim Gopi higiniofrock PA-C Work Phone: Internal Medicine [facility] Start: 02-08-2023 AUDIT Terrie aiken MD Work Phone: UU-Goybpfaswnpk-Ietqot 107 DO Work Phone: Start: 02-08-2023 End: 02-08-2023 Subsequent hospital visit by physician Grace [facility] Work Phone: Radiology Comment on above: Upper back pain on r ight side [M54.9] Start: 02-08-2023 End: 02-08-2023 Office outpatient visit 25 minutes Lien Carina Mizanin PA-C Work Phone: Internal Medicine [facility] Comment on above: Upper back pain on r ight side (Primary Dx) Start: 02-08-2023 ambulatory Bindu Tirado RT(R) Radiology Comment on above: Radio Gen RMP Start: 02-08-2023 Patient encounter procedure Bindu Tirado RT(R) [facility] Start: 02-07-2023 ambulatory Lien Carina Theodora anin PA-C Work Phone: [facility] Start: 02-07-2023 Patient encounter procedure Lien L Mizanin PA-C Work Phone: Internal Medicine [facility] Comment on above: Appointment request Start: 02-04-2023 End: 02-04-2023 Office outpatient visit 15 minutes Lien L Mizanin PA-C Work Phone: Internal [facility] Comment on above: Neuropathy (Primary Dx) Start: 02-03-2023 End: 02-03-2023 Subsequent hospital visit by physician Tracy Tyler Work Phone: Cardiovascular Testing Comment on above: Palpitations [R00.2] Start: 02-03-2023 End: 02-03-2023 Patient encounter procedure Myla Izquierdo PA-C Work Phone: OB/Gynecology Comment on above: Counseling for control regarding intrauterine device (IUD) Start: 01-11-2023 Telephone encounter Batsheva BRANNON Work Phone: Adult Psychology Comment on above: Behavioral Health/So cial Work Start: 12-31-2022 Telephone encounter Marco Oviedo DO Work Phone: Spine Medicine Comment on above: Scans Start: 12-22-2022 End: 12-22-2022 Subsequent hospital visit by physician Grace Tyler Work Phone: [facility] Radiology General Comment on above: Juvenile idiopathic scoliosis of thoracolumbar region [M41.115] Start: 12-22-2022 End: 12-22-2022 Patient encounter procedure Marco Oviedo DO Work Phone: Spine Medicine Comment on above: 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 (Primary Dx); Juvenile idiopathic scoliosis of thoracolumbar region; Arthrodesis status; Paresthesia of right foot Start: 11-25-2022 ambulatory Jessee faith MD Work Phone: Cardiology Comment on above: ekg monitor Start: 11-05-2022 ambulatory Jessee faith MD Work Phone: Cardiology Comment on above: Heart Monitor Start: 10-18-2022 ambulatory Jessee faith MD Work Phone: Cardiology Comment on above: Monitor Start: 10-18-2022 E-mail encounter fro m caregiver Jessee Fried MD Work Phone: [facility] Start: 09-27-2022 End: 09-27-2022 Office outpatient new 20 minutes Jessee Fried MD Work Phone: Cardiology Comment on above: Palpitations (Primar y Dx); Paroxysmal atrial fibrillation (HCC) Start: 09-15-2022 Telephone encounter Ubaldo sims MD Work Phone: Cardiology Comment on above: Received Outside Med ical Records Start: 07-24-2022 End: 07-24-2022 Emergency department patient visit BENROSIE DIAZ Facility:[facility] Procedures Date Procedure Procedure Detail Performing Clinician Start: 09-12-2023 X-ray of lumbar spin e, six views including bending views PHYSICIAN NO FAMILY Start: 05-26-2023 INFLUENZA VACCINE, A GE 6 MO - 64 YR, QUADRIVALENT (AFLURIA, FLULAVAL, FLUZONE) Ashwini BOLANDC Work Phone: Start: 03-14-2023 CT Lumbar spine Natalie Brown MD Work Phone: Start: 03-14-2023 RF Guidance for inje ction of Lumbar spine Terrie Brown MD Work Phone: Start: 02-08-2023 Radex scapula complete Lien Burleson PAHeidiC Work Phone: Start: 12-22-2022 Radex entir thrc lmb r crv sac spi w/skull 2/3 vw Marco G Mendis DO Work Phone: Start: 09-27-2022 Ecg routine ecg w/le ast 12 lds i&r only [facility] Provider Plan of Treatment Date Care Activity Detail Author Start: 2041 Zoster Vaccines (1 of 2) Zoste r Vaccines (1 of 2) [facility] Start: 01-14-2025 End: 01-14-2025 Patient encounter procedure 01/14/2025 11:30 AM EDT Office Visit Pain Management [address] [place] [address] Erlinda Friend, IGLESIA.JACQUARD CARD CUTTER [address] [place] [address] Sutrual Removal Pain Management Comment on above: Sutrual Removal Start: 12-15-2024 End: 03-16-2025 STAPHYLOCOCCUS AUREUS & MRSA SCREEN, PCR, NASAL STAPHYLOCOCCUS AUREUS & MRSA SCREEN, PCR, NASAL Lab Routine Pre-op testing Expected: 12/15/2024, Expires: 03/16/2025 [facility] Comment on above: Expected: 12/15/2024 , Expires: 03/16/2025 Start: 11-28-2024 End: 11-28-2024 Admission to same day surgery center 11/28/2024 12:07 PM EDT - 11/28/2024 2:44 PM EDT Surgery Pain Management [address] [place] [address] Dileep Jim MD [address] [place] [address] DRG permanent implant Pain Management Comment on above: DRG permanent implan t Start: 11-28-2024 End: 11-28-2024 Insj/rplcmt spi npgr dir/induxive coupling INSRT OR RPLCMT SPINAL CORD NSTIM PULSE GENERATOR OR RECVER W/ POCKET CREATE CONNECT BTWN ELTRD ARRAY AND PULSE GENERATOR OR RECVR Complex regional pain syndrome type 1 of lower extremity, unspecified laterality Chronic pain syndrome 11/28/2024 12:07 PM EDT [facility] Start: 11-28-2024 End: 11-28-2024 Prq impltj nstim electrode array epidural IMPLANTATION ELECTRODE ARRAY, NEUROSTIMULATOR, EPIDURAL, PERCUTANEOUS Complex regional pain syndrome type 1 of lower extremity, unspecified laterality Chronic pain syndrome 11/28/2024 12:07 PM EDT [facility] Start: 11-28-2024 Subsequent hospital visit by physician 11/28/2024 12:07 PM EDT Hospital Encounter Pain Management [address] [place] [address] Dileep Jim MD [address] [place] [address] Complex regional pain syndrome type 1 of lower extremity, unspecified laterality [G90.529], Chronic pain syndrome [G89.4] Pain Management Comment on above: Complex regional isamar n syndrome type 1 of lower extremity, unspecified laterality [G90.529], Chronic pain syndrome [G89.4] Start: 11-14-2024 End: 02-13-2025 Basic metabolic 2000 panel - Serum or Plasma BASIC METABOLIC PANEL Lab Routine Pre-op testing Expected: 11/14/2024, Expires: 02/13/2025 [facility] Work Phone: Comment on above: Expected: 11/14/2024 , Expires: 02/13/2025 Start: 11-14-2024 End: 02-13-2025 CBC panel - Blood by Automated count COMPLETE BLOOD COUNT Lab Routine Pre-op testing Expected: 11/14/2024, Expires: 02/13/2025 [facility] Comment on above: Expected: 11/14/2024 , Expires: 02/13/2025 Start: 11-14-2024 End: 11-14-2024 Patient encounter procedure 11/14/2024 10:30 AM EDT Office Visit Pain Management [address] [place] [address] Erlinda Friend APRN.JACQUARD CARD CUTTER [address] [place] [address] Follow Up Pain Management Comment on above: Follow Up Start: 11-07-2024 End: 11-07-2024 Admission to same day surgery center 11/07/2024 8:55 AM EST - 11/07/2024 10:30 AM EST Surgery Pain Management [address] [place] [address] Dileep Jim MD [address] [place] [address] DRG Trial Pain Management Comment on above: DRG Trial Start: 11-07-2024 End: 11-07-2024 Prq impltj nstim electrode array epidural IMPLANTATION ELECTRODE ARRAY, NEUROSTIMULATOR, EPIDURAL, PERCUTANEOUS Complex regional pain syndrome type 1 of lower extremity, unspecified laterality Chronic pain syndrome 11/07/2024 8:55 AM EST [facility] Start: 11-07-2024 Subsequent hospital visit by physician 11/07/2024 8:55 AM EST Hospital Encounter Pain Management [address] [place] [address] Dileep Jim MD [address] [place] [address] Complex regional pain syndrome type 1 of lower extremity, unspecified laterality [G90.529], Chronic pain syndrome [G89.4] Pain Management Comment on above: Complex regional isamar n syndrome type 1 of lower extremity, unspecified laterality [G90.529], Chronic pain syndrome [G89.4] Start: 05-06-2024 Covid-19 Vaccine ( season) Covid-19 Vaccine ( season) [facility] Start: 05-06-2024 Covid-19 Vaccine ( season) Covid-19 Vaccine ( season) [facility] Start: 05-06-2024 Influenza vaccination Influenza Vacc ine (#1) [facility] Start: 01-12-2024 COVID-19 VACCINE (#1) COVID-19 VACCI NE (#1) [facility] Comment on above: Postponed from 09/15 (Declined at this time) Start: 05-26-2023 End: 07-26-2023 Comprehensive metabolic 2000 panel - Serum or Plasma [facility] Work Phone: Comment on above: Expected: 05/26/2023 , Expires: 07/26/2023 Start: 05-26-2023 End: 07-26-2023 TOX SCREEN ROUT UR [facility] Work Phone: Comment on above: Expected: 05/26/2023 , Expires: 07/26/2023 Start: 05-06-2023 Influenza vaccination C [facility] Start: 09-05-2022 DEPRESSION ASSESSMENT DEPRESSION ASS ESSMENT [facility] Start: 05-06-2022 Influenza vaccination INFLUENZA (#1) [facility] Start: 2021 HPV TESTING HPV TESTING [facility] Start: 2013 DTaP/Tdap/Td Vaccine s (1 - Tdap) DTaP/Tdap/Td Vaccines (1 - Tdap) [facility] Start: 2012 PAP TESTING PAP TESTING [facility] Start: 2012 Screening for malign ant neoplasm of cervix [facility] Start: 05-30-2011 HPV VACCINE (3 - 3-d ose series) HPV VACCINE (3 - 3-dose series) [facility] Start: 05-30-2011 HPV Vaccines (3 - 3- dose series) HPV Vaccines (3 - 3-dose series) [facility] Start: 2010 Hepatitis B Vaccine (1 of 3 - 19+ 3-dose series) Hepatitis B Vaccine (1 of 3 - 19+ 3-dose series) [facility] Start: 2010 Urine microalbumin profile [facility] Start: 2009 Anxiety Screening Anxiety Screening [facility] Start: 2009 Depression Screening Depression Scre [place] [facility] Start: 2009 Diabetes mellitus screening Diabetes Screening [facility] Start: 2009 HEPATITIS C SCREENING HEPATITIS C [facility] Start: 2009 Hepatitis C screening Hepatitis C [facility] Start: 2009 HIV SCREENING HIV SCREENING [facility] Start: 2009 HIV screening HIV Screening [facility] Start: 1992 MMR Vaccines (1 of 1 - Standard series) MMR Vaccines (1 of 1 - Standard series) [facility] Start: 1992 Varicella vaccination Varicell a Vaccines (1 of 2 - 2-dose childhood series) [facility] Start: 1991 COVID-19 VACCINE (#1) COVID-19 VACCI NE (#1) [facility] Start: 1991 HEPATITIS B (1 of 3 - 3-dose series) HEPATITIS B (1 of 3 - 3-dose series) [facility] Start: 1991 Hepatitis B Vaccine (1 of 3 - 3-dose series) Hepatitis B Vaccine (1 of 3 - 3-dose series) [facility] Start: 1991 Hepatitis B Vaccines (1 of 3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 She states I love my job. They treat me very well. INTERVIEW She arrived for her appointment appropriately groomed, with good attention to personal hygiene. She was able to sit throughout her session, and was friendly, pleasant, and cooperative, but very fidgety. She denies problems with memory, reports some difficulty concentrating. As for mood changes, she states that she has been in a bad mood lately for no apparent reason. She is easily frustrated. She is not normally irritable, describing herself is generally upbeat. She takes Lexapro for anxiety, and Wellbutrin for depression; Lexapro is also likely to be helpful for the depression. She states she also uses coping skills from rehab. She denies problems with anger, denies suicidal ideation, and denies attempts. She has difficulty with sleep onset and maintenance at times because of pain. She does not exercise because of her pain. She has relinquished bowling, bicycle riding. She taught herself drawing, but stopped because it requires her to sit too long and it is no longer enjoyable. She also no longer crochets. She enjoys going out in the [place] and hanging out. She did enjoy girls night, but stays away from some friends who do drugs. She states she is unable to stay with her mother as it is a trigger for alcohol and they do not get along well enough to live together. Her father lives in a senior facility and she is not able to live with him. She was asked how she spends a typical day and states I work and I go home; I'm tired all the time because of work. When asked which she would like to be doing if she had some relief from her pain, she responded that she wants to do all of the things she gave up, and be able to sit for an hour or 2 to be able to draw, and to do crocheting. She would also like to spend time with some friends. She was asked about expectations for the DRG and states I don't like the idea of one, but this is literally my last option. She would like to have her pain more in the back of her mind. She states she would be satisfied with 50-75% relief. We discussed the stimulator in detail utilizing demonstration models and visual images, explaining the difference between the spinal cord stimulator and the dorsal root ganglion stimulator. She is apprehensive because of the difficulty due to scar tissue in her back with the first attempt at a stimulator. We discussed how this would be different from the previous effort. TESTS ADMINISTERED 1. Dailey Depression Inventory (BDI-II) 2. Oswestry Disability Index 3. Personality Assessment Inventory (ISAMAR) 4. Chronic Pain Coping Inventory (CPCI) TEST INTERPRETATION Her score of 8 on the BDI suggests either minimal depression or denial of depression at this time. She sees herself as moderately disabled, at the low end of the moderate range with a score of 16 on the Oswestry. Her scores on illness focused coping strategies on the CPCI are at the low end of the moderate/subclinical range, close to adaptive, with just a mild need for improvement in guarding, which involves avoiding people, places, activities, resting, and asking for assistance. On wellness focused coping strategies she sees her self as adaptive and task persistence, indicating that she completes the tasks she sets out to do. The remaining scores are in the moderate/subclinical range with a mild need for improvement in seeking social support, more moderate need for improvement in exercise/stretching, relaxation, coping self statements and pacing. She was also administered the Personality Assessment Inventory, the results of which suggest she was neither negative about herself nor defensive, and appears to want help for her problems. She did endorse some unusual answers on the test. She sees herself as having a high level of health concerns, with a mild to moderate focus on them, and does not appear to have a tendency toward conversion. She denies anxiety, denies anxiety disorders including traumatic stress, which is subclinical. She denies depression except for mild elevation on cognitive aspects and a moderate elevation on physical manifestations, likely to include fatigue, lack of energy, sleep disturbance, with additional indication that her energy levels are somewhat low. She may have a bit of difficulty trusting people with that score in the mild to moderate range. She denies any major psychiatric disorders. She has a mild elevation on self-harm, which is likely to reflect her history of substance abuse. She also has a mild to moderate elevation on antisocial behaviors, again likely to reflect that history of substance abuse. She has a high score on alcohol and that is followed closely by a moderate to high score on the drug scale, both of which consistent with her history, noting that she has gone through a year of drug and alcohol rehab and sobriety since 04/19/2024. She denies problems with anger, denies suicidal ideation. She sees her self as having low stress and good support. She is likely to feel that she does not have much control over her life at this point in time. She appears to have a reasonably stable and positive self evaluation, with occasional periods of self-doubt. She appears to know what her goals are in life. She is likely to be modest and on pretenses, a bit self-conscious in social interactions and may have difficulty asserting herself. She may be seen as passive and unassuming. IMPRESSIONS 1. Hue Titus is a 34-year-old woman with complex regional pain syndrome (CRPS) I, lower extremities, unspecified laterality, G90.5 29; chronic pain syndrome, G89.4. She is being evaluated to determine if she would be an appropriate candidate for a dorsal root ganglion stimulator. She is likely to have a pain disorder with related psychological factors, F45.42, in conjunction with her pain problem. 2. She previously had a trial of the spinal cord stimulator, but it had to be aborted because of scar tissue in her spine from previous surgeries. She is apprehensive about the DRG because of that. She states that her back pain worsened after that trial. 3. Very favorable factor is that she continues to work 30 hours a week at a job that she loves. 4. She has also committed to sobriety and graduated 09/11/2024 from a 1 year alcohol and drug rehabilitation program. She had been abusing alcohol and her mother's prescription opioids. She had 1 relapse on 04/18/2024 when she drank 1 beer. She reports sobriety since 04/19/2024. She is also trying to distance herself from her friends who do drugs. 5. She also has a reported history of ADHD, and depression. She states that Lexapro helps with anxiety and Wellbutrin with depression. Lexapro is also likely to be helping with depression. 6. She may have difficulty asserting herself, and may be somewhat passive. Substances may have provided disinhibition for her. She reports a commitment to sobriety. 7. Outside of the substance abuse, which has been addressed and treated, there are no major psychiatric/psychological disorders that would preclude doing well with the stimulator. 8. She was asked about expectations for the DRG and states I don't like the idea of one, but this is literally my last option. She would like to have her pain more in the back of her mind. She states she would be satisfied with 50-75% relief. We discussed the stimulator in detail utilizing demonstration models and visual images, explaining the difference between the spinal cord stimulator and the dorsal root ganglion stimulator. She is apprehensive because of the difficulty due to scar tissue in her back with the first attempt at a stimulator. We discussed how this would be different from the previous effort. RECOMMENDATIONS 1. She appears to be an appropriate candidate for the dorsal root ganglion stimulator trial, and it is recommended that she proceed to the trial. She does have concerns for the impact of scar tissue which caused the previous trial of the spinal cord stimulator to be aborted. 2. She was instructed in the need to maintain a journal of activities, pain, sleep, what she likes and does not like about the trial in order to determine whether or not to continue to permanent implant. 3. If she does well with the trial, and would like to pursue permanent implant, it would be so indicated. Huma Weiss, PHD documented in this encounter [facility] 09-13-2024 Telephone encounter Note Left voicemail message for patient to call back to schedule testing with Dr. Douglass [facility] 09-13-2024 Miscellaneous Notes Left voicemail message for patient to call back to schedule testing with Dr. Douglass documented in this encounter [facility] 08-14-2024 Instructions Dillon Leung DO - 08/14/2024 2:56 PM EST Hi Hue Titus, You were at the [facility] today for an appointment. The following describes your care plan and instructions: - Schedule DRG trial -Make an appointment with pain psychology Please call the clinic with any questions or issues. Thank you for allowing us to participate in your care. [facility] August 14, 2024 documented in this encounter [facility] 08-14-2024 Note HNO ID: [id number] Author: DILEEP JIM MD Service: ? Author Type: Physician Type: Progress Notes Filed: 08/17/2024 10:37 Note Text: [facility] New Patient Consultation Referring Physician: Chucky Hernandez M.D. 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 The patient complains of back pain. The pain started 7 years ago, symptoms have been persistent. The pain is located in the right leg and foot area. The pain is described as burning, shooting, and tingling. Currently, the pain is rated at 5/10, and it ranges from 0-10/10 on the patient's best and worst days, respectively. The pain is exacerbated by sitting and standing. The pain is mitigated by Position change, elevation, and heat. The pain does interfere with the patient's sleep at night and the patient reports 4 hours of uninterrupted sleep per night. She had a magdalene fusion in 2004, however a year after that surgery she needed a second surgery to extend her fusion down to L4. She was doing fine after her second surgery until August 2017 when she started to develop right leg pain particularly in the right calf and foot. Describes as a sharp pain. She was seeing pain management with Dr. Dennis who tried a spinal cord stimulator trial in December 2022 but was unsuccessful because of all the scar tissue in her back they had trouble getting in the needle. After the trial with the spinal cord stimulator she started to develop worsening low back pain. The patient does currently work. The patient denies denies red flags. Physical Therapy/Home Exercise: Yes In the past 12 months, She completed 10 physical therapy sessions. Physical therapy is helpful. Current Pain Medications and Dosages: - Opioids: n - NSAIDs: n - Anti-Depressants: n - Anti-Convulsants: Lyrica 100 mg TID, Gabapentin 600 mg BID - Others: n Prior treatments (including what specific medications tried): n Prior Pain Procedures (with percentage of pain relief and duration of relief): Right L5-S1 S1-S2 TFESI in March 2024 with> 50% improvement in pain and functional ability . Right foot pain 5/10 increasing to 8/10 with standing walking and activity, continues to report numbness tingling burning. Most recent right L5/S1 while living in [place] which lasted for one day. Failed a spinal cord stimulator OARRS report: Reviewed: The patient's OARRS report was reviewed and is consistent with the reported medication use. Pain medications reviewed: Yes PAST MEDICAL HISTORY Diagnosis Date ADHD (attention deficit hyperactivity disorder) Ovarian cyst PAF (paroxysmal atrial fibrillation) ([facility]) 07/2022 follows with cardiology Scoliosis SVT, lower extremity ([facility]) 2019 ASA only no anticoagulants [...] [Other]) Mother Scoliosis Father Scoliosis Paternal Aunt ALLERGIES No Known Allergies Current Outpatient Medications Medication Sig pregabalin (LYRICA) 100 mg capsule Take 100 mg by mouth three times a day as needed. gabapentin (NEURONTIN) 600 mg tablet Take 2 tablets by mouth three times a day for 30 days. metoprolol tartrate, short acting, (LOPRESSOR) 25 mg tablet take 1 tablet by mouth twice a day dextroamphetamine-amphetamine (ADDERALL) 10 mg tablet Take 1 tablet by mouth every afternoon for 30 days. escitalopram oxalate (LEXAPRO) 20 mg tablet Take 1 tablet by mouth once daily. amphetamine-dextroamphetamine XR (ADDERALL XR) 30 mg capsule Take 1 capsule by mouth once daily for 30 days. No current facility-administered medications for this visit. Questionnaires: Patient Entered Questionnaires PROMIS Score Percentiles 01/05/2023 07/18/2024 PROMIS Global Health Scale Physical Health Percentile 15 Mental Health Percentile 34 82 07/18/2024 Physical Health Physical Function Percentile 14 Pain Interference Percentile 10 Percentiles provide an indication of how the patient's score ranks in relation to the general population. Higher percentile rankings indicate better function/quality of life. 50th percentile is the average of the general population and indicates half of respondents had a worse score. > 31st percentile is within normal limits or better * < 31st percentile is at least ? SD worse than population, which may be clinically relevant < (more content not included)... [facility] 08-14-2024 History of Present illness Narrative Images from the original note were not included. [facility] New Patient Consultation Referring Physician: Chucky Hernandez M.D. 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 The patient complains of back pain. The pain started 7 years ago, symptoms have been persistent. The pain is located in the right leg and foot area. The pain is described as burning, shooting, and tingling. Currently, the pain is rated at 5/10, and it ranges from 0-10/10 on the patient's best and worst days, respectively. The pain is exacerbated by sitting and standing. The pain is mitigated by Position change, elevation, and heat. The pain does interfere with the patient's sleep at night and the patient reports 4 hours of uninterrupted sleep per night. She had a amgdalene fusion in 2004, however a year after that surgery she needed a second surgery to extend her fusion down to L4. She was doing fine after her second surgery until August 2017 when she started to develop right leg pain particularly in the right calf and foot. Describes as a sharp pain. She was seeing pain management with Dr. Dennis who tried a spinal cord stimulator trial in December 2022 but was unsuccessful because of all the scar tissue in her back they had trouble getting in the needle. After the trial with the spinal cord stimulator she started to develop worsening low back pain. The patient does currently work. The patient denies denies red flags. Physical Therapy/Home Exercise: Yes In the past 12 months, She completed 10 physical therapy sessions. Physical therapy is helpful. Current Pain Medications and Dosages: - Opioids: n - NSAIDs: n - Anti-Depressants: n - Anti-Convulsants: Lyrica 100 mg TID, Gabapentin 600 mg BID - Others: n Prior treatments (including what specific medications tried): n Prior Pain Procedures (with percentage of pain relief and duration of relief): Right L5-S1 S1-S2 TFESI in March 2024 with> 50% improvement in pain and functional ability . Right foot pain 5/10 increasing to 8/10 with standing walking and activity, continues to report numbness tingling burning. Most recent right L5/S1 while living in [place] which lasted for one day. Failed a spinal cord stimulator OARRS report: Reviewed: The patient's OARRS report was reviewed and is consistent with the reported medication use. Pain medications reviewed: Yes PAST MEDICAL HISTORY Diagnosis Date ADHD (attention deficit hyperactivity disorder) Ovarian cyst PAF (paroxysmal atrial fibrillation) ([facility]) 07/2022 follows with cardiology Scoliosis SVT, lower extremity ([facility]) 2019 ASA only no anticoagulants [...] [Other]) Mother Scoliosis Father Scoliosis Paternal Aunt ALLERGIES No Known Allergies Current Outpatient Medications Medication Sig pregabalin (LYRICA) 100 mg capsule Take 100 mg by mouth three times a day as needed. gabapentin (NEURONTIN) 600 mg tablet Take 2 tablets by mouth three times a day for 30 days. metoprolol tartrate, short acting, (LOPRESSOR) 25 mg tablet take 1 tablet by mouth twice a day dextroamphetamine-amphetamine (ADDERALL) 10 mg tablet Take 1 tablet by mouth every afternoon for 30 days. escitalopram oxalate (LEXAPRO) 20 mg tablet Take 1 tablet by mouth once daily. amphetamine-dextroamphetamine XR (ADDERALL XR) 30 mg capsule Take 1 capsule by mouth once daily for 30 days. No current facility-administered medications for this visit. Questionnaires: Patient Entered Questionnaires PROMIS Score Percentiles 01/05/2023 07/18/2024 PROMIS Global Health Scale Physical Health Percentile 15 Mental Health Percentile 34 82 07/18/2024 Physical Health Physical Function Percentile 14 Pain Interference Percentile 10 Percentiles provide an indication of how the patient's score ranks in relation to the general population. Higher percentile rankings indicate better function/quality of life. 50th percentile is the average of the general population and indicates half of respondents had a worse score. > 31st percentile is within normal limits or better * < 31st percentile is at least SD worse than population, which may be clinically relevant < 16th percentile is at least 1 SD worse than population and warrants attention Depression Screenin01/05/2023 PHQ-9 Score 6 01/05/2023 PHQ-9 Self Harm Question 9 Not at all PHQ-9 Self-Harm (Item 9) response options: 0 Not at all 1 Several days 2 More than half the days 3 Nearly every day PHQ-9 Levels: 0-4 Minimal depression 5-9 Mild depression 10-14 Moderate depression 15-19 Moderately severe depression 20-27 Severe depression PHQ-9 Score 01/05/2023 6 (0-4) minimal depression, (5-9) mild depression, (10-14) moderate depression, (15-19) moderately severe depression, (20-27) severe depression No data to display No data to display REVIEW OF SYSTEMS: GENERAL: SEE HPI, No weight loss, malaise or fevers. HEENT: Negative for frequent or significant headaches, No changes in hearing or vision, no nose bleeds or other nasal problems NECK: Negative for lumps, goiter, pain and significant neck swelling RESPIRATORY: Negative for cough, wheezing or shortness of breath. CARDIOVASCULAR: Negative for chest pain, leg swelling or palpitations. GASTROINTESTINAL: Negative for abdominal discomfort, blood in stools or black stools or change in bowel habits GENITOURINARY: No history of dysuria, frequency or incontinence MUSCULOSKELETAL: back pain NEUROLOGIC: Negative for focal numbness or weakness, headaches and dizziness or syncope. SKIN: Negative for lesions, rash, and itching. PSYCHIATRIC: See HPI HEMATOLOGIC/LYMPHATIC/IMMUNOLOGI C: Negative for prolonged bleeding, bruising easily or swollen nodes. ENDOCRINE: Negative for cold or heat intolerance, polyuria, polydipsia and goiter. The remainder of the ROS was negative. OBJECTIVE: [facility] 02/13/2023 PHYSICAL EXAMINATION: General:well appearing, alert, and in no acute distress Psych: Appropriate affect Skin: skin color, texture, turgor normal, no rashes or lesions HEENT: normocephalic, atraumatic, sclera non-icteric CV: Regular rate and rhythm, no murmur, clicks or rubs - Not Examined Resp: lungs clear to auscultation no wheezing or rhonchi GI: Soft, non-tender, non-distended. : not examined Musculoskeletal: Neck: Supple; good ROM. Back: Tenderness on palpation over the lumbar spine. Extremities: Extremities normal. No deformities, edema, or skin discoloration Neurological: Mental Status: alert Cranial Nerves: Not examined Reflexes: Deep tendon reflexes are 2+ all throughout. Motor Strength: Motor strength and tone are 5/5 all throughout. Sensory: Sensation was diminished to light touch right leg. Gait: Normal. Pertinent Imaging: CT Lumbar spine Myelogram 03/14/23 The vertebral body heights are intact. Multilevel [...] foramina. L5-S1: Spinal canal is patent. Mild dwvt-[id number]-bsuz-right foraminal stenosis secondary to facet hypertrophy and [...] CT was acquired immediately after the procedure. XR Lumbar spine 02/10/23 Impression Postsurgical changes without evidence of hardware failure Mild retrolisthesis of L4 on L5. Severe facet disease and moderate spondylosis at L4-L5 and L5-S1 XR Thoracic spine 02/08/23 RESULT: Unchanged appearance of levoscoliosis centered in the midthoracic spine. Posterior fusion extending from T2 to the lumbar spine. Hardware appears intact. 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 Of note, she has been part of an alcohol and drug rehab program for one year now. She has a history of multiple spinal fusion surgeries. In 2017 her back pain worsened and she developed pain in her right leg and foot with numbness. PT has been helpful for her in the past. She has had JEFFERY in the past with , most recently in March 2024 with 50% relief of pain. Previously she has had failed a SCS trial on account of too much scar tissue. Her most recent imaging, a CT myelogram from 2022 indicates that there is L5-S1 spinal canal is patent. Mild ilqd-ozaxjev-pyko-right foraminal stenosis. She is presenting today for consult for DRG trial. We will schedule her for a DRG trial and consult to pain psychology for evaluation. (G90.529) Complex regional pain syndrome type 1 of lower extremity, unspecified laterality (primary encounter diagnosis) (G89.4) Chronic pain syndrome PLAN: 1.Imaging/Lab orders : n/a 2. Medical management : Continue medication regimen as ordered by PCP 3. Interventions : Since pt failed to respond to conventional measures, injections, medications, PT, topical agents, we will consider DRG trial. As per ACCURATE study, DRG was found superior to SCS in focal neuropathic pain especially CRPS II. 4. Musculoskeletal rehabilitation : n/a 5. Consults/Referrals : Consult for Dr Douglass for psychological diagnostic testing/evaluation to rule out any underlying untreated personality disorders or uncontrolled psychiatric illnesses 6. Follow up: Return to clinic for procedure 7.Counseled patient regarding the importance of activity modification and stress management. The above plan and management options were discussed at length with the patient. The patient is in agreement with the above and verbalized understanding. It will be communicated with the referring physician via electronic record, fax, or mail. Dillon Leung DO August 14, 2024 *The patient has been under my care for chronic complex condition(s) and has been provided with longitudinal comprehensive management. Medical Decision Making: Problems: Moderate: 1+ chronic illnesses with change Data: Unique test result(s) reviewed: 3+ Medical Decision Making Level: 4 - Moderate documented in this encounter [facility] 05-31-2024 Telephone encounter Note Called and spoke to patient. Chart reviewed and referral was consult for DRG stimulator. Informed patient that Dr. Wright and providers at [facility] do not perform that procedure. Patient should schedule with [facility] [place], Dr. Jim for consult. Office number given for patient to call and schedule appointment with Dr. Jim. Patient voiced understanding and will call [facility] office Appointment with Dr. Wright cancelled [facility] 05-31-2024 Miscellaneous Notes Called and spoke to patient. Chart reviewed and referral was consult for DRG stimulator. Informed patient that Dr. Wright and providers at [facility] do not perform that procedure. Patient should schedule with [facility] [place], Dr. Jim for consult. Office number given for patient to call and schedule appointment with Dr. Jim. Patient voiced understanding and will call [facility] office Appointment with Dr. Wright cancelled New patient info sent via my chart documented in this encounter [facility] 05-31-2024 Telephone encounter Note New patient info sent via my chart [facility] 12-20-2023 Note Review of Systems All other systems reviewed and are negative. [place] [facility] Consult Note Reason for visit: new [...] NEEDED sparingly ergocalciferol (Vitamin D-2) 1.25 MG (91339 Units) capsule Take 50,000 Units by mouth [...] Lungs Respiratory Effor (more content not included)... [facility] 10-31-2023 Note New patient here to establish [...] All other systems reviewed and are negative. [facility] 10-31-2023 Note [facility] Consult Note Reason [...] @CATH@ Diagnostic Imaging: (more content not included)... [facility] 09-12-2023 Evaluation note Encounter Date Diagnosis Assessment [...] place pain stimulator due to scar tissue. [facility] had EMG in [place] by Dr Galvan. I reviewed the CT myelogram from 03/14/2023 [id number] with patient and which shows suggestive pseudomeningocele [...] release of information from medical records and [place] from Dr. Galvan. Will refer for a new EMG as previous one in [place] was greater than 2 years old. Pharmacological management will continue with current medications as prescribed. Will refer patient to aqua therapy at the [facility]. Follow-up in 3 months. Medical decision [...] Sep, Vitamin B deficiency (ICD-10 - E53.9) [employer] Other 11-09-2023 History of Present illness Narrative* [...] then around 2018- 2019 while living in [place] she was seeing pain management who tried caudal injections which did not help. She is also tried multiple medications such as Cymbalta and Lyrica without any relief. She was started on gabapentin which initially did provide relief of her leg painbut now she still has a lot of foot pain. She describes as a burning sensation. She then since moved back to [place] and has been seeing physicians at [facility]. Most of her care is done at [facility]. She was seeing pain management with Dr. [...] taking yet. 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 She does not smoke occasionally drinks alcohol [...] L2. Patient had a EMG back in [place] in 2020 which she brought in today which suggested a right L5 radiculopathy A/P: Hue Titus is a 33 y.o. year old female patient with history of scoliosis status post thoracolumbar fusion when she was a teenager who reports persistent right radicular leg pain and numbness. She had EMG done in [place] in 2020 which suggested a right L5 [...] to prepare this document. Terrie Brown MD Administrative Secretary Department of Orthopaedic Surgery [email or web address] documented in [facility] encounterF[facility] Work Phone: 1(104) 758-125810-12-2023 Miscellaneous Notes* Telephone Encounter - Ashwini Matute [...] pended Josh Han MA [facility] Miscellaneous Notes* Telephone Encounter - Altagracia Leroy MA - 06/06/2023 7:19 AM EDT Last ov: 05/26/23 Next ov: 07/07/23 Pharmacy electronically requests the following refill(s) Requested Prescriptions Pending Prescriptions Disp Refills metoprolol tartrate, short acting, (LOPRESSOR) 25 mg tablet [Pharmacy Med Name: METOPROLOL [id number] MG TAB] 60 tablet 2 Sig: take 1 tablet by mouth twice a day Altagracia Leroy MA documented in this encounterS[facility]23 Miscellaneous Notes* Telephone Encounter - Ashwini Matute [...] advise. Lorrie Vargas MA documented in this encounterS[facility]-25-2023 Miscellaneous Notes* Telephone Encounter - Teagan Green [...] pharmacy. Teagan Green MA documented in this encounterS[facility]09-22-2023 Instructions* Patient Instructions* Jessee Fried MD - 05/27/2023 1:54 PM EDT Images from the original note were not included. [email or web address] documented in this encounterS[facility]09-[facility]-2023 History of Present illness Narrative* Jessee Fried MD - 05/27/2023 1:30 PM EDT PRIMARY CARE PHYSICIAN: Ashwini Matute [address] [place], [place] [id number] REFERRING PHYSICIAN: No referring provider defined for this encounter. CHIEF COMPLAINT: Abnormal Holter HISTORY OF PRESENT ILLNESS: From my office notes on September 27, 2022 Probably paroxysmal atrial fibrillation, with spontaneous conversion into normal sinus rhythm. [id number] based on the information we have [...] significant arrhythmia. The patient will get a [employer] mobile and send me the tracings if necessary. I appreciate the opportunity of partaking in the care of Hue Titus and look forward to following her along with you in the future. CONTACT INFORMATION: Jessee Fried M.D. Staff Weight Tester [facility] [place] [id number] [facility] [id number] documented in this encounterScci [facility]09-21-2023 History of Present illness Narrative* Ashwini Matute PA-C - 05/26/2023 2:28 PM EDT This note was created using lifeIOter. 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 [...] injection (DEFINITY), , INTRAVENOUS, DIRECTED PRN, Jessee Fried MD sodium chloride 0.9 % (flush) 10 mL (BD POSIFLUSH), 10 mL, INTRAVENOUS, DIRECTED PRN, Jessee Fried MD Allergies: ALLERGIES No Known Allergies Vitals: [...] FLUZONE) Ashwini Matute PA-C documented in this encounterScci Hospital [facility]09-21-2023 Instructions* Patient Instructions* Lorrie Vargas MA - 05/26/2023 1:23 PM EDT [facility] FACTS Please visit our lab at least 3-5 days before your scheduled appointment to have your lab work drawn, if lab work is ordered. This will allow us the ability to review your lab work results with you during your scheduled visit. [facility] HOURS: Lab is open Tuesday - Tuesday from 6:30am to 5pm and open 8am -12pm on Saturdays. [facility] HOURS: Tuesday- 7:30am to 5:30pm. Fridays [...] medicine, or pediatrics at any of our [facility] locations and main campus. documented in this encounterScci Hospital [facility]09-18-2023 Miscellaneous Notes* Telephone Encounter - Ashwini Matute [...] by Ashwini Matute PA-C documented in this encounterScci Hospital [facility]09-14-2023 Miscellaneous Notes* Telephone Encounter - Ashwini Matute [...] pharmacy. Teagan Green MA documented in this encounterScci Hospital [facility]ima09-13-2023 Miscellaneous Notes* Telephone Encounter - Ashwini Matute [...] advise. Altagracia Leroy MA documented in this encounterScci Hospital [facility]09-11-2023 Miscellaneous Notes* Telephone Encounter - Lorrie Vargas [...] advise. Lorrie Vargas MA documented in this encounterScci Hospital [facility]ima08-24-2023 Miscellaneous Notes* Telephone Encounter - Ashwini Matute [...] by Ashwini Matute PA-C documented in this encounterScci Hospital [facility]08-23-2023 Miscellaneous Notes* Telephone Encounter - Ashwini Matute [...] Matute PA-C * Telephone Encounter - Ashia Thrahser LPN - 04/27/2023 8:40 AM EDT Patient phones requesting refills as follows: Requested Prescriptions Pending Prescriptions Disp Refills dextroamphetamine-amphetamine (ADDERALL) 10 mg tablet 30 tablet 0 Sig: Take 1 tablet by mouth every afternoon for 30 days. PENG: 02/22/2023 Please review and advise. Ashia Thrasher LPN documented in this encounterScci Hospital [facility]ima08-17-2023 Miscellaneous Notes* Telephone Encounter - Ashwini Matute [...] by Ashwini Matute PA-C documented in this encounterScci Hospital [facility]ima08-08-2023 Miscellaneous Notes* Telephone Encounter - Kelly Dasilva MA - 04/12/2023 2:55 PM EDT Letter is in brown box for patient to seed cone picker documented in this encounterScci Hospital [facility]07-27-2023 Miscellaneous Notes* Telephone Encounter - Lien Burleson PA-C - 03/31/2023 11:46 AM EDT OARRS reviewed. 30 day supply Rx sent. Will defer additional refills to PCP. I know I had previously discussed with patient ensuring she determines who would maintain Rx while in [place]. Has been filled by provider in [place]. Lien Lim. RICHIE Burleson * Telephone Encounter - Kristie Thibodeaux APRN.CNP - 03/31/2023 10:50 AM EDT Lien- you have seen patient recently. She appears to be taking Lyrica and Gabapentin? Kristie Thibodeaux APRN.JACQUARD CARD CUTTER * Telephone Encounter - Teagan Green MA [...] pharmacy. Teagan Green MA documented in this encounterScci Hospital [facility]ima07-19-2023 Miscellaneous Notes* Telephone Encounter - Myla Valenzuela APRN.CNP - 03/23/2023 2:36 PM EDT The following approved medication requests have been transmitted electronically. Requested Prescriptions Signed Prescriptions Disp Refills amphetamine-dextroamphetamine XR (ADDERALL XR) 30 mg biphasic capsule 30 capsule 0 Sig: Take 1 capsule by mouth once daily for 30 days. Myla Valenzuela APRN.CNP * Telephone Encounter - Radha Armstrong MA - 03/23/2023 12:54 PM EDT Pended with note to dispense generic Requested Prescriptions Pending Prescriptions Disp Refills amphetamine-dextroamphetamine XR (ADDERALL XR) 30 mg biphasic capsule 30 capsule 0 Sig: Take 1 capsule by mouth once daily for 30 days. Please review and advise. Radha Armstrong MA documented in this encounterScci Hospital [facility]ima07-18-2023 Miscellaneous Notes* Telephone Encounter - Kristie Thibodeaux [...] 03/22/2023 4:18 PM EDT Patient requests via Neocutishart refills as follows: Requested Prescriptions Pending Prescriptions Disp Refills ADDERALL XR 30 mg biphasic capsule 30 capsule 0 Sig: Take 1 capsule by mouth once daily for 30 days. Please review and advise. Altagracia Leroy MA documented in this encounterScci Hospital [facility]ima07-18-2023 Miscellaneous Notes* Telephone Encounter - Lorrie Vargas MA - 03/22/2023 1:19 PM EDT Patient phones requesting refills as follows: Requested Prescriptions Pending Prescriptions Disp Refills ADDERALL XR 30 mg biphasic capsule 30 capsule 0 Sig: Take 1 capsule by mouth once daily for 30 days. Please review and advise. Lorrie Vargas MA documented in this encounterScci Hospital [facility]ima07-11-2023 NoteClinical Event: Clinical Event Note: TopicLP 03/14/23 - Post-procedure phone call Details After the patient's myelogram, the patient inadvertently administered her prescribed ASSESSMENT DIRECTOR acting agents, which she was supposed to [...] Note Last Updated: 18-Mar-2023 08:56 by Dina Dennis)[facility] 2023 Miscellaneous Notes* Telephone Encounter [...] pharmacy. Altagracia Leroy MA documented in this encounterScci Hospital [facility]ima07-10-2023 NotePre-procedure Verification and Time Out: Pre-Procedure Verification and Time Out: Procedure Locationprocedure area [facility] - Pre-procedure Verificationcompleted TIME OUT - Final Verificationcompleted immediately prior to procedure start DEBRIEFcompleted General Information: Anesthesia Critical Care: Non-Anesthesia Date/Time of Procedure: 14-Mar-2023 Indication(s)/Pre Procedure Diagnoses: right lumbar radiculopathy. History of scoliosis s/p thoracolumbar fusion Post-Procedure Diagnosis: right lumbar radiculopathy. History of scoliosis s/p thoracolumbar fusion Procedure Name: LP + Myelogram Findings: scoliosis s/p thoracolumbar fusion Procedure performed by: Dr. Dennis Appeals Manager(s): none Dr. Ramirez Estimated Blood Loss (mL): [...] Completion Last Updated: 15-Mar-2023 13:22 by Dina Dennis)[facility] 02-25-2023 Miscellaneous Notes* Telephone Encounter - Mary Crowe PA-C - 02/25/2023 9:06 AM EDT The following approved medication requests have been transmitted electronically. Requested Prescriptions Signed Prescriptions Disp Refills miSOPROStol (CYTOTEC) 200 mcg tablet 2 tablet 0 Si tablet as directed for 2 doses. Take by mouth 2 days prior to appt, and the second pill 8-10hours prior to CUSTOM HARVESTER appt for cervical dilation. Mary Crowe PA-C (For Myla Izquierdo PA-C) * Telephone Encounter - Mckenna Gibson RN - 02/25/2023 8:40 AM EDT Cytotec cancelled by PCP Req reorder for IUD appt Requested Prescriptions Pending Prescriptions Disp Refills miSOPROStol (CYTOTEC) 200 mcg tablet 2 tablet 0 Si tablet as directed for 2 doses. Take by mouth 2 days prior to appt, and the second pill 8-10hours prior to CUSTOM HARVESTER appt for cervical dilation. documented in this encounterScci Hospital [facility]ima06-20-2023 History of Present illness Narrative* Ashwini Matute PA-C - 02/22/2023 3:26 PM EDT This note was created using NetConstat. Subjective Hue Titus is a 32 year [...] pain. She has started seeing a new adaptive physical education specialist at . Past Medical History: PAST MEDICAL HISTORY Diagnosis Date ADHD (attention deficit hyperactivity disorder) Ovarian cyst PAF (paroxysmal atrial fibrillation) ([facility]) 07/2022 follows with cardiology Scoliosis SVT, lower extremity ([facility]) 2018 ASA only no anticoagulants [...] injection (DEFINITY), , INTRAVENOUS, DIRECTED PRN, Jessee Fried MD sodium chloride 0.9 % (flush) 10 mL (BD POSIFLUSH), 10 mL, INTRAVENOUS, DIRECTED PRN, Jessee Fried MD Allergies: ALLERGIES No Known Allergies Vitals: [...] no longer seeing her previous PCP in [place]. 3. Vitamin D deficiency - ICD9: 268.9, ICD10: E55.9 Start high dose vitamin D once weekly. Rx sent in. Ashwini Matute PA-C documented in this encounterScci Hospital [facility]ima06-15-2023 Miscellaneous Notes* Telephone Encounter - Ashwini Matute [...] refill on that. * Telephone Encounter - Marniemarino Larsen - 02/16/2023 2:29 PM EDT Patient is calling back in to see if this is possible to get. Let her know wither way through My chart. She is leaving out of town tomorrow. * Telephone Encounter - Pebbles Macdonald - 02/15/2023 4:21 PM EDT Patient has ended her membership with her provider in [place]. Patient thought Jenny was going totake over [...] pharmacy. Teagan Green MA documented in this encounterScci Hospital [facility]ima06-06-2023 History of Present illness Narrative* RT Vinny(R) [...] 08, 2023 4:08 PM documented in this encounterScci Hospital [facility]ima06-06-2023 History of Present illness Narrative* Lien Burleson PA-C - 02/08/2023 4:05 PM EDT Images [...] spine ordered - has not yet called [place] to schedule. She's concerned if something may [...] lower aspect of R scapula suddenly on 3 worse with deep breaths and ROM of [...] RIGHT - XR THORACIC GENERAL 3V AP/LAT/SWIMMERS Lien Burleson PA-C documented in this encounterScci Hospital [facility]ima06-02-2023 History of Present illness Narrative* Lien Burleson PA-C - 02/04/2023 12:25 PM EDT Subjective [...] yet. 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 She's currently followed by Dr Dennis for pain management and Spine. She reports Dr Dennis told her there's nothing additional he can do for her so she didn't think she would need to follow up. She hada CT Myelogram ordered by [facility] Sp[facility] - but it was scheduled in [place] as a traditional CT so it was [...] the Rx since she now lives in [place] Review of Systems All other systems reviewed [...] PCP out of state. Pt will call [place] CT scheduling to set up the CT myelogram appropriately. Lien Burleson PA-C documented [facility] History of Present illness Narrative* Myla Izquierdo PA-C - 02/03/2023 2:48 PM EDT [...] the second pill 8-10 hours prior to CUSTOM HARVESTER appt for cervical dilation. metoprolol tartrate, short [...] of this record were documented by the Rn Post Partum. I, Myla Izquierdo, have reviewed this information as documented for accuracy and performed all elements of history taking, and editedthe record as necessary. ROS: SEE HPI PE: GENERAL: well-appearing, in no acute distress LUNGS: Normal inspiratory effort CUSTOM HARVESTER: deferred NEURO: Awake, alert and oriented A/P: 32 year old y/o F here for BC consult. 1. Counseling for control regarding intrauterine device (IUD) - Reviewed r/b/a IUDs, pt elects Mirena - INSERT INTRAUTERINE DEVICE Rx Cytotec sent F/U 2wks for placement Will perform WWE at IUD check as she is due. Myla Izquierdo PA-C I spent a total of 30 minutes on the date of the service which included [id number] patient care, completing clinical documentation, counseling and educating the patient/family/caregiver, and ordering medications, tests, or procedures. documented in this encounterS[facility]-2023 Miscellaneous Notes* Telephone Encounter - SALUD Reeves - 01/11/2023 3:22 PM EDT Behavioral Health Social Work Progress Note Patient identified for [facility] from: PCP Reason for referral: Resources Behavioral Health Resources: Psychology - talk therapy [facility] encounter type: Telephone Encounter, Neocutishart Message Attempts to Outreach: 1 attempt Referral made: Psychology - External Psychology-External referral type: Therapy Reason for external referral: Patient seeking usp support Final Disposition: Resources given Patient Discharged?: Yes Patient reported that caregiver was able to meet their needs today?: Yes [facility] consult received for anxiety and depression. [facility] placed telephone call at the request of the PCP to discuss behavioral health needs and provide referrals for outpatient support. Patient states she is looking to establish with a therapy provider. Would like telephone number to schedule [facility] and externally. Will send the following: [facility] Central Scheduling Call Center [phone] [facility] ([place]) [phone] [facility] ([place]) Counseling only [phone] [facility] ([place]) Counseling only [phone] [facility] ([place]) Counseling only [phone] [facility] ([place]) [phone] Extension: [phone] [facility] ([place]) Counseling only [phone] [facility] [place] ([place]) Counseling only [phone] [facility] [place] ([place]) Counseling only [phone] [facility] ([place]) [phone] [facility] ([place]) [phone] [facility] ([place]) Counseling only [phone] [facility] [place] ([place]) Counseling only [phone] [facility] ([place]) Counseling only [phone] [facility] ([place]) [phone] [facility] ([place]) Counseling only [phone] [facility] ([place]) Counseling only [phone] [facility] ([place]) Counseling only [facility] [phone] [facility] ([place]) Counseling only [phone] [facility] [email or web address] ([place]) Counseling only [phone] [facility] ([place]) Counseling only [phone] [facility] ([place]) Counseling only [phone] SALUD Reeves, M- January 11, 2023 documented in this encounterS[facility]04-28-2023 Miscellaneous Notes* Telephone Encounter - Ivanna Jj RN - 12/31/2022 3:56 PM EDT I spoke to CT regarding the orders it appears in place. Should be able to schedule. Would try to schedule again. If there is a problem to write down what the issue is. Spoke to patient gave information and she verbalized understanding. * Telephone Encounter - Batsheva Kirby - 12/31/2022 3:34 PM EDT Pt calling to schedule her CT scan, however, the scan is not currently listed under active orders on the appointment desk. Please advise if the order needs to be released or re-entered so that patient may be scheduled. Batsheva Kirby December 31, 2022 3:35 PM documented in this encounterS[facility]04-19-2023 History of Present illness Narrative* Dorota Conn, [...] 22, 2022 1:26 PM documented in this encounterS[facility]04-19-2023 History of Present illness Narrative* Marco Oviedo, DO - 12/22/2022 8:17 AM EDT Images from the original note were not included. [facility] [place] [facility] - Medical [...] is now seeking neurosurgicalevaluation for SCS at [facility]. Denies bowel/bladder incontinence or saddle anesthesia. [...] surgery: -05/16/06 Dr. 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 Manan Garcia at [facility]: T2 to L2 PSF for scoliosis Previously treated by: -Pain Management Dr. Jolly Dennis. -Pain Management Dr. Miguel Angel Pinedo, [facility] in [place] -NSGY Dr. Raymond Sheikh, [facility] in [place] - Rx PT on 02/2022 -Ortho Spine Surgery Dr. Rico Mustafa, [facility] in [place] -NSGY Dr. Shawn Hard[place] 07/24/21 - no signs of radiculopathy on imaging/EMG, did not recommend surgery; rec SNRB vs SCS. -NSGY Dr. Miguel Angel Allison at [facility] 2005. -NSGY Dr. Manan Garcia at [facility] 2004 PMH: PAF - previously on Eliquis but couldn't afford, then took ASA, now just on Metoprolol, following with [facility] Dr. Fried, had 30 day monitor completed showing only sinus arrhythmia. ADHD Anxiety, Depression Migraine B12 and Vitamin D deficiency h/o cancer: no personal history of cancer PSH: See below Social Alcohol: 1-2 cups of whiskey at night Tobacco: states she just stopped vaping Illicit drugs: no Personal life: Moved to [place] in 2014 then back to [place] from [place] in 2021. 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 SENSORY: sensation decreased to light touch [...] indicated. 01/14/2022 MRI lumbar spine without contrast, [place], [place]: Leftward lumbar curvature. No acute marrow [...] 05/06/2021 MRI lumbar spine without contrast, report, [place], [place]: There has been prior posterior spinal [...] may be of benefit. 03/16/2021 EMG/NCS RLE, [facility] [place], [place], Dr. Don Bailon MD: Mildly abnormal [...] tested) 06/16/2020 CT lumbar spine without contrast, [place], [place]: Thoracolumbar fusion. Bilateral rods and pedicle [...] the sacroiliac joints. 06/06/2020 XR lumbar AP/Flex/Ext, [facility], [place]: There is partially visualized posterior thoracolumbar fusion [...] which included preparing to see the patient, [id number] patient care, completing clinical documentation, obtaining and/or reviewing separately obtained history, performing a medically appropriate examination, counseling and educating the pat ient/family/caregiver, ordering medications, tests, or procedures, independently interpreting results (not separately reported), and communicating results to the patient/family/caregiver. SIGNATURE: Marco Oviedo DO PATIENT NAME: Hue Aguilar DATE: December 22, 2022 TIME: 8:17 AM documented in this [facility]03-03-2023 Miscellaneous Notes* Telephone Encounter - Yo Adames LPN - 11/05/2022 3:09 PM EST Called patient to inform her that a new order was placed for the 30 day [employer]. Called [employer] rep(Akash Kirby) to help expedite the order. Yo Adames LPN documented in this [facility]01-23-2023 Nurse Note* Carlyn Weber LPN - 09/27/2022 9:31 AM EST Customer Service Driver present: For cardiology exam with Dr Corky Weber LPN documented in this [facility]01-23-2023 Instructions* Patient Instructions* Jessee Fried MD - 09/27/2022 9:30 AM EST Please, follow up with me after the echocardiogram and event monitor to discuss results. Please, see me as scheduled, or sooner should symptoms appear or worsen. documented in this [facility]01-23-2023 History of Present illness Narrative* Jessee Fried MD - 09/27/2022 9:00 AM EST Images [...] with spontaneous conversion into normal sinus rhythm. [id number] based on the information we have so far. Will obtain a 30-day event monitor and obtain an echocardiogram. Slightly low potassium at the time of her symptoms: Patient encouraged to eat food high on potassium. I appreciate the opportunity of partaking in the care of Hue Aguilar and look forward to following her along with you in the future. CONTACT INFORMATION: Jessee Fried M.D. Staff Weight Tester [facility] [place] [address] [facility] [address] documented in this encounterScci Hospital [facility]ima01-11-2023 Miscellaneous Notes* Telephone Encounter - Ave Antonio MA - 09/15/2022 1:17 PM EST Received OV notes from [facility], requesting pt be scheduled as soon as possible. Pt already scheduled with Dr. Fried 09/27/2022. Sent for scanning. documented in this encounterScci Hospital [facility]ima11-19-2022 NoteHNO ID: [id number] Author: Interface Note Service: ? Author Type: ? Type: Progress Notes Filed: 07/24/2022 2:42 AM Note Text: Epic Scheduled Downtime: 07/24/2022 1:00:00 AM to 07/24/2022 2:26:04 [id number] NoteHNO ID: [id number] Author: RT Michelle(Nicole) Service: Radiology Author Type: Thermal Intelligence Analyst Type: Progress Notes Filed: 07/23/2022 11:18 PM [...] BY: RT Michelle(R) July 23, 2022 11:18 [id number] NoteCOVID 19 RESULT: SARS-CoV-2 (Agent of COVID-19) Not Detected by RT-PCR or equivalent method. This test has been authorized by FDA under an Emergency Use Authorization (EUA). INFLUENZA A PCR: Negative for Influenza A by RT-PCR INFLUENZA B PCR: Negative for Influenza B by RT-PCR RSV PCR: Negative for Respiratory Syncytial Virus (RSV) by PCRSteward Health Care SystemComment on above:Performed By: #### [id number] ####[facility] LABORATORYCLIA [id number] [facility].[address] [facility] Evaluation note* Diagnosis Palpitations- Primary Paroxysmal atrial fibrillation (HCC) Atrial fibrillation documented [facility]* Diagnosis Palpitations- Primary Paroxysmal atrial fibrillation (HCC) Atrial fibrillation [facility]* Diagnosis Chronic bilateral low back pain with right-sided sciatica- Primary 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), idiopathic Arthrodesis status Paresthesia of right foot Disturbance of skin sensation documented in this encounter [facility]* Diagnosis Counseling for control regarding intrauterine device (IUD) documented in this encounter [facility]* Diagnosis Neuropathy- Primary Mononeuritis of unspecified site documented in this [facility]* Diagnosis Upper back pain on right side- Primary Pain in thoracic spine documented in this [facility]* Diagnosis Attention deficit hyperactivity disorder (ADHD), unspecified ADHD type- Primary documented in [facility]* Diagnosis Mild episode of recurrent major depressive disorder (HCC)- Primary Attention deficit hyperactivity disorder (ADHD), unspecified ADHD type Vitamin D deficiency Unspecified vitamin D deficiency documented [facility]* Diagnosis 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), idiopathic Attention deficit hyperactivity disorder (ADHD), unspecified ADHD type Neuropathy Mononeuritis of unspecified site documented [facility]* Diagnosis Attention deficit hyperactivity disorder (ADHD), unspecified ADHD type [facility]* Diagnosis Attention deficit hyperactivity disorder (ADHD), unspecified ADHD type documented [facility]* Diagnosis Attention deficit hyperactivity disorder (ADHD), unspecified ADHD type- Primary [facility]* Diagnosis Attention deficit hyperactivity disorder (ADHD), unspecified ADHD type [facility]* Diagnosis 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), idiopathic Neuropathy Mononeuritis of unspecified site documented [facility]* Diagnosis 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), idiopathic Neuropathy Mononeuritis of unspecified site [facility]* Diagnosis Attention deficit hyperactivity disorder (ADHD), unspecified ADHD type [facility]* Diagnosis Attention deficit hyperactivity disorder (ADHD), unspecified ADHD type [facility]* Diagnosis Moderate episode of recurrent major depressive disorder (HCC)- Primary Attention deficit hyperactivity disorder (ADHD), unspecified ADHD type Alcohol abuse Alcohol abuse, unspecified 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), idiopathic Paroxysmal atrial fibrillation (HCC) Atrial fibrillation Neuropathy Mononeuritis of unspecified site Encounter for immunization Need for other specified prophylactic vaccination against single bacterial disease documented [facility]* Diagnosis Paroxysmal atrial fibrillation (HCC)- Primary Atrial fibrillation Palpitations documented in this [facility]* Diagnosis 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), idiopathic Neuropathy Mononeuritis of unspecified site documented [facility]* Diagnosis 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), idiopathic Neuropathy Mononeuritis of unspecified site documented in this encounter [facility] note* Diagnosis 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), 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 status documented in this [facility]* Diagnosis Neuropathy- Primary Mononeuritis of unspecified site Lumbar radiculopathy Thoracic or lumbosacral neuritis or radiculitis, unspecified documented in this encounter [facility] Work Phone: Evaluation note* Diagnosis Low back pain, unspecified Radiculopathy, lumbar region Thoracic or lumbosacral neuritis or radiculitis, unspecified Arthrodesis status documented in this encounter [facility] Work Phone: Evaluation noteNo assessment information available [facility] Work Phone: Evaluation note* Diagnosis Upper back pain on right side Pain in thoracic spine documented in this [facility]* Diagnosis Complex regional pain syndrome type 1 of lower extremity, unspecified laterality- Primary Chronic pain syndrome documented in this [facility]* Diagnosis Pain disorder with related psychological factors- Primary Complex regional pain syndrome type 1 of lower extremity, unspecified laterality [facility] Diagnosis Complex regional pain syndrome type 1 of lower extremity, unspecified laterality- Primary Chronic pain syndrome Pre-op testing Preoperative examination, unspecified documented in this encounter [facility] general Narrative - Reported* Type Description Date Medical History alcoholism Medical History migraine headache Medical History chronic depression Surgical History scoliosis repair Hospitalization History see above [facility] Other History of Present illness NarrativeTried to call patient to remind her to get labs before her CT myelogram. Called the numbers listed in EMR. The cell phone number listed is the wrong number and the number listed as home did not go through.YL-[id number] Work Phone: Reason for referral (narrative)* Outpatient Procedure (Routine) - Pending Review Specialty Diagnoses / Procedures Referred By Edy copeland Referred To Contact [facility] Diagnoses Palpitations Procedures ECHO ECHO TTHRC R-T 2D W/WOM-MODE COMPL SPEC&COLR D Jessee Fried MD [address] [place] [id number] [facility] [place] [id number] Referral ID Status Reason Start Date Expiration Date Visits Requested Visits Authorized [id number] Pending Review Auto-Generat ed Referral 09/27/2022 09/27/2023 1 1 * Outpatient Procedure (Routine) - Closed Specialty Diagnoses / Procedures Referred By Edy copeland Referred To Contact [facility] Diagnoses Palpitations Procedures ECG COMPLETE ECG ROUTINE ECG W/LEAST 12 LDS W/I&R Jessee Fried MD [address] [place] [address] [place] [address] Referral ID Status Reason Start Date Expiration Date V isits Requested Visits Authorized [id number] Closed Auto-Generate d Referral 09/27/2022 09/27/2023 1 1 [facility] for referral (narrative)* Diagnostic Procedure Only (Routine) - Closed Specialty Diagnoses / Procedures Referred By Contac t Referred To Contact XR IMAGING Diagnoses 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 Procedures XR SCOLIOSIS PA STAND/LAT 2V RADEX ENTIR THRC LMBR CRV SAC SPI W/SKULL 2/3 VW Marco Oviedo DO [address] [place] [address] Xr Imaging Referral ID Status Reason Start Date Expiration Date V isits Requested Visits Authorized [id number] Closed Auto-Generate d Referral 12/22/2022 01/21/2024 1 1 * Consult, Test, Treat (Routine) - Pending Review Specialty Diagnoses / Procedures Referred By Contac t Referred To Contact Neurosurgery Diagnoses 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 Procedures CONSULT TO NEUROSURGERY OFFICE/OUTPATIENT NEW HIGH MDM 60-74 MINUTES Marco Oviedo DO [address] [place] [address] Referral ID Status Reason Start Date Expiration Date Visits Requested Visits Authorized [id number] Pending Review PCP Requested Referral 12/22/2022 12/22/2023 1 1 * Physical Therapy (Routine) - Pending Review Specialty Diagnoses / Procedures Referred By Contac t Referred To Contact [facility] Diagnoses 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 Procedures CONSULT TO PHYSICAL THERAPY PHYSICAL THERAPY EVALUATION HIGH COMPLEX 45 MINS Mraco Oviedo DO [address] [place] [address] [facility] [place] [address] [place] [address] Referral ID Status Reason Start Date Expiration Date Visits Requested Visits Authorized [id number] Pending Review Auto-Generat ed Referral 12/22/2022 12/22/2023 1 1 [facility] for referral (narrative)* Outpatient Procedure (Routine) - Pending Review Specialty Diagnoses / Procedures Referred By Contluigi t Referred To Contact [facility] Diagnoses Counseling for control regarding intrauterine device (IUD) Procedures INSERT INTRAUTERINE DEVICE LEVONORGESTREL IU 52MG 5 YR INSERT INTRAUTERINE DEVICE Myla Izquierdo PA-C [address] [place] [address] [facility] [address] [place] [address] Referral ID Status Reason Start Date Expiration Date Visits Requested Visits Authorized [id number] Pending Review Auto-Generat ed Referral 02/03/2023 02/03/2024 1 1 [facility] for referral (narrative)* Diagnostic Procedure Only (Urgent) - Closed Specialty Diagnoses / Procedures Referred By Edy t Referred To Contact XR IMAGING Diagnoses Upper back pain on right side Procedures XR THORACIC GENERAL 3V AP/LAT/SWIMMERS RADEX SPINE THORACIC 3 VIEWS Lien Burleson PA-C [address] [place] [address] Xr Imaging Referral ID Status Reason Start Date Expiration Date V isits Requested Visits Authorized [id number] Closed Auto-Generate d Referral 02/08/2023 03/09/2024 1 1 * Diagnostic Procedure Only (Urgent) - Closed Specialty Diagnoses / Procedures Referred By Contac t Referred To Contact XR IMAGING Diagnoses Upper back pain on right side Procedures XR SCAPULA 2V AP/LAT RIGHT RADEX SCAPULA COMPLETE Lien Burleson PA-C [address] [place] [address] Xr Imaging Referral ID Status Reason Start Date Expiration Date V isits Requested Visits Authorized [id number] Closed Auto-Generate d Referral 02/08/2023 03/09/2024 1 1 [facility] for referral (narrative)* Diagnostic Procedure Only (Routine) - Closed Specialty Diagnoses / Procedures Referred By Contac t Referred To Contact XR IMAGING Diagnoses 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 Procedures XR SCOLIOSIS PA STAND/LAT 2V RADEX ENTIR THRC LMBR CRV SAC SPI W/SKULL 2/3 VW Marco Oviedo DO [address] [place] [address] Xr Imaging [place] [address] Referral ID Status Reason Start Date Expiration Date V isits Requested Visits Authorized [id number] Closed Auto-Generate d Referral 12/22/2022 01/21/2024 1 1 [facility] for referral (narrative)* Consultation (Routine) - Authorized Specialty Diagnoses / Procedures Referred By Contac t Referred To Contact Pain Medicine Diagnoses [place] [address] [facility] [place] [address] [place] PhD [address] [place] [address] Referral ID Status Reason Start Date Expiration Date Visits Requested Visits Authorized [id number] Authorized Specialty Services Required 07/14/2023 07/13/2024 1 1 * Consultation (Routine) - Authorized Specialty Diagnoses / Procedures Referred By Contac t Referred To Contact Neurology [place] [address] [address] [facility] [place] [address] Referral ID Status Reason Start Date Expiration Date Visits Requested Visits Authorized [id number] Authorized Specialty Services Required 07/14/2023 07/13/2024 1 1 [facility] Work Phone: Reason for referral (narrative)* Diagnostic Procedure Only (Urgent) - Closed Specialty Diagnoses / Procedures Referred By Contac t Referred To Contact XR IMAGING Diagnoses Upper back pain on right side Procedures XR THORACIC GENERAL 3V AP/LAT/SWIMMERS RADEX SPINE THORACIC 3 VIEWS Lien Burleson PA-C [address] [place] [address] [place] [address] Referral ID Status Reason Start Date Expiration Date V isits Requested Visits Authorized [id number] Closed Auto-Generate d Referral 02/08/2023 03/09/2024 1 1 * Diagnostic Procedure Only (Urgent) - Closed Specialty Diagnoses / Procedures Referred By Contac t Referred To Contact XR IMAGING Diagnoses Upper back pain on right side Procedures XR SCAPULA 2V AP/LAT RIGHT RADEX SCAPULA COMPLETE Lien Burleson PA-C [address] [place] [address] [place] [address] Referral ID Status Reason Start Date Expiration Date V isits Requested Visits Authorized [id number] Closed Auto-Generate d Referral 02/08/2023 03/09/2024 1 1 [facility] for visit Narrative* Diagnostic Procedure Only (Routine) - Closed Specialty Diagnoses / Procedures Referred By Contac t Referred To Contact XR IMAGING Diagnoses 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 Procedures XR SCOLIOSIS PA STAND/LAT 2V RADEX ENTIR THRC LMBR CRV SAC SPI W/SKULL 2/3 Marco Sandoval, DO [address] [place] [address] [place] [address] Referral ID Status Reason Start Date Expiration Date V isits Requested Visits Authorized [id number] Closed Auto-Generate d Referral 12/22/2022 01/21/2024 1 1 [facility] for visit NarrativeSELF REFERRAL PINCHED NERVE LOW BACK [employer] Other reason for visit Narrative* Diagnostic Procedure Only (Urgent) - Closed Specialty Diagnoses / Procedures Referred By Contac t Referred To Contact XR IMAGING Diagnoses Upper back pain on right side Procedures XR THORACIC GENERAL 3V AP/LAT/SWIMMERS RADEX SPINE THORACIC 3 VIEWS Lien Burleson, RICHIE [address] [place] [address] [place] [address] Referral ID Status Reason Start Date Expiration Date V Lodgeots Requested Visits Authorized [id number] Closed Auto-Generate d Referral 02/08/2023 03/09/2024 1 1 [facility] Summary Purpose Family History No Family History [...] (ADHD), unspecified ADHD type Ashwini Matute PA-C [address] [place] [address] Referral ID Status Reason Start Date Expiration Date Visits Re quested Visits Authorized [id number] Closed 1 1 Referral ID Status Reason Start Date Expiration Date Visits Re quested Visits Authorized [id number] Closed 1 1 Referral ID Status Reason Start Date Expiration Date Visits Re quested Visits Authorized [id number] Closed 1 1 Referral ID Status Reason Start Date Expiration Date V isits Requested Visits Authorized [id number] Pending Review 1 1 Referral ID Status Reason Start Date Expiration Date Visits Re quested Visits Authorized [id number] Closed 1 1 Referral ID Status Reason Start Date Expiration Date Visits Re quested Visits Authorized [id number] Closed 1 1 Referral ID Status Reason Start Date Expiration Date Visits Re quested Visits Authorized [id number] Closed 1 1 Reason Aqua therapy - evalu ate and treat Diagnosis 1 Lumbar radiculopathy , right (M54.16) Referral Organization [facility] urosurgery Referring Provider First Name Lorie Referring Provider Last Name Cary Referring Provider Specialty Nurse Pract terrellionenicole Referred Organization [facility]Central Scheduling Referred Address [address] [facility],[place], [place],[address] Referred Provider Specialty Physical The rapist Referral Priority Routine Specialty Diagnoses / Procedures Referred By Edy copeland Referred To Contact Psychology Diagnoses Chronic pain syndrome Procedures CONSULT TO PSYCHOLOGY Dileep Jim MD [address] [place] [address] Huma Crowder, PhD [address] [place] [address] Referral ID Status Reason Start Date Expiration Date Visits Requested Visits Authorized [id number] Authorized PCP Requested Referral 4 08/14/2025 1 1 Chief Complaint and Reason for Visit Chief Complaint M54.50 Additional Source Comments INFORMATION SOURCE (unrecogn ized section and content) DATE CREATED AUTHOR 07/25/2022 [facility] DATE CREATED AUTHOR AUTHOR'S ORGANIZ ATION 03/12/2023 [employer] DATE CREATED AUTHOR AUTHOR'S ORGANIZ ATION 05/03/2023 [facility] DATE CREATED AUTHOR AUTHOR'S ORGANIZ ATION 06/22/2023 [facility] DATE CREATED AUTHOR AUTHOR'S ORGANIZ ATION 07/18/2023 [facility] DATE CREATED AUTHOR AUTHOR'S ORGANIZ ATION 12/21/[address] [facility] DATE CREATED AUTHOR AUTHOR'S ORGANIZ ATION 06/17/2024 [facility] DATE CREATED AUTHOR AUTHOR'S ORGANIZ ATION 10/14/2024 [facility] DATE CREATED AUTHOR AUTHOR'S ORGANIZ ATION 11/09/2024 [facility] DATE CREATED AUTHOR AUTHOR'S ORGANIZ ATION 11/25/2024 [facility] Source Comments (unrecognize d section and content) In the event this informatio n is protected by the Federal Confidentiality of Alcohol and Drug Abuse Patient Records regulations: The Federal rules restrict any use of the information to criminally investigate or prosecute any alcohol or drug abuse patient.[facility] the event this information is protected by the Federal Confidentiality of Alcohol and Drug Abuse Patient Records regulations: The Federal rules restrict any use of the information to criminally investigate or prosecute any alcohol or drug abuse patient.[facility] the event this information is protected by the Federal Confidentiality of Alcohol and Drug Abuse Patient Records regulations: The Federal rules restrict any use of the information to criminally investigate or prosecute any alcohol or drug abuse patient.[facility] the event this information is protected by the Federal Confidentiality of Alcohol and Drug Abuse Patient Records regulations: The Federal rules restrict any use of the information to criminally investigate or prosecute any alcohol or drug abuse patient.[facility] the event this information is protected by the Federal Confidentiality of Alcohol and Drug Abuse Patient Records regulations: The Federal rules restrict any use of the information to criminally investigate or prosecute any alcohol or drug abuse patient.[facility] the event this information is protected by the Federal Confidentiality of Alcohol and Drug Abuse Patient Records regulations: The Federal rules restrict any use of the information to criminally investigate or prosecute any alcohol or drug abuse patient.[facility] the event this information is protected by the Federal Confidentiality of Alcohol and Drug Abuse Patient Records regulations: The Federal rules restrict any use of the information to criminally investigate or prosecute any alcohol or drug abuse patient.[facility] the event this information is protected by the Federal Confidentiality of Alcohol and Drug Abuse Patient Records regulations: The Federal rules restrict any use of the information to criminally investigate or prosecute any alcohol or drug abuse patient.[facility] the event this information is protected by the Federal Confidentiality of Alcohol and Drug Abuse Patient Records regulations: The Federal rules restrict any use of the information to criminally investigate or prosecute any alcohol or drug abuse patient.[facility] the event this information is protected by the Federal Confidentiality of Alcohol and Drug Abuse Patient Records regulations: The Federal rules restrict any use of the information to criminally investigate or prosecute any alcohol or drug abuse patient.[facility] the event this information is protected by the Federal Confidentiality of Alcohol and Drug Abuse Patient Records regulations: The Federal rules restrict any use of the information to criminally investigate or prosecute any alcohol or drug abuse patient.[facility] the event this information is protected by the Federal Confidentiality of Alcohol and Drug Abuse Patient Records regulations: The Federal rules restrict any use of the information to criminally investigate or prosecute any alcohol or drug abuse patient.[facility] the event this information is protected by the Federal Confidentiality of Alcohol and Drug Abuse Patient Records regulations: The Federal rules restrict any use of the information to criminally investigate or prosecute any alcohol or drug abuse patient.[facility] the event this information is protected by the Federal Confidentiality of Alcohol and Drug Abuse Patient Records regulations: The Federal rules restrict any use of the information to criminally investigate or prosecute any alcohol or drug abuse patient.[facility] the event this information is protected by the Federal Confidentiality of Alcohol and Drug Abuse Patient Records regulations: The Federal rules restrict any use of the information to criminally investigate or prosecute any alcohol or drug abuse patient.[facility]ima[facility] the event this information is protected by the Federal Confidentiality of Alcohol and Drug Abuse Patient Records regulations: The Federal rules restrict any use of the information to criminally investigate or prosecute any alcohol or drug abuse patient.[facility]ima[facility] the event this information is protected by the Federal Confidentiality of Alcohol and Drug Abuse Patient Records regulations: The Federal rules restrict any use of the information to criminally investigate or prosecute any alcohol or drug abuse patient.[facility]ima[facility] the event this information is protected by the Federal Confidentiality of Alcohol and Drug Abuse Patient Records regulations: The Federal rules restrict any use of the information to criminally investigate or prosecute any alcohol or drug abuse patient.[facility]ima[facility] the event this information is protected by the Federal Confidentiality of Alcohol and Drug Abuse Patient Records regulations: The Federal rules restrict any use of the information to criminally investigate or prosecute any alcohol or drug abuse patient.[facility]ima[facility] the event this information is protected by the Federal Confidentiality of Alcohol and Drug Abuse Patient Records regulations: The Federal rules restrict any use of the information to criminally investigate or prosecute any alcohol or drug abuse patient.[facility] the event this information is protected by the Federal Confidentiality of Alcohol and Drug Abuse Patient Records regulations: The Federal rules restrict any use of the information to criminally investigate or prosecute any alcohol or drug abuse patient.[facility]ima[facility] the event this information is protected by the Federal Confidentiality of Alcohol and Drug Abuse Patient Records regulations: The Federal rules restrict any use of the information to criminally investigate or prosecute any alcohol or drug abuse patient.[facility] the event this information is protected by the Federal Confidentiality of Alcohol and Drug Abuse Patient Records regulations: The Federal rules restrict any use of the information to criminally investigate or prosecute any alcohol or drug abuse patient.[facility]ima[facility] the event this information is protected by the Federal Confidentiality of Alcohol and Drug Abuse Patient Records regulations: The Federal rules restrict any use of the information to criminally investigate or prosecute any alcohol or drug abuse patient.[facility] the event this information is protected by the Federal Confidentiality of Alcohol and Drug Abuse Patient Records regulations: The Federal rules restrict any use of the information to criminally investigate or prosecute any alcohol or drug abuse patient.[facility]ima[facility] the event this information is protected by the Federal Confidentiality of Alcohol and Drug Abuse Patient Records regulations: The Federal rules restrict any use of the information to criminally investigate or prosecute any alcohol or drug abuse patient.[facility] the event this information is protected by the Federal Confidentiality of Alcohol and Drug Abuse Patient Records regulations: The Federal rules restrict any use of the information to criminally investigate or prosecute any alcohol or drug abuse patient.[facility] the event this information is protected by the Federal Confidentiality of Alcohol and Drug Abuse Patient Records regulations: The Federal rules restrict any use of the information to criminally investigate or prosecute any alcohol or drug abuse patient.[facility]imaIn the event this information is protected by the Federal Confidentiality of Alcohol and Drug Abuse Patient Records regulations: The Federal rules restrict any use of the information to criminally investigate or prosecute any alcohol or drug abuse patient.[facility] the event this information is protected by the Federal Confidentiality of Alcohol and Drug Abuse Patient Records regulations: The Federal rules restrict any use of the information to criminally investigate or prosecute any alcohol or drug abuse patient.[facility] the event this information is protected by the Federal Confidentiality of Alcohol and Drug Abuse Patient Records regulations: The Federal rules restrict any use of the information to criminally investigate or prosecute any alcohol or drug abuse patient.[facility] the event this information is protected by the Federal Confidentiality of Alcohol and Drug Abuse Patient Records regulations: The Federal rules restrict any use of the information to criminally investigate or prosecute any alcohol or drug abuse patient.[facility] the event this information is protected by the Federal Confidentiality of Alcohol and Drug Abuse Patient Records regulations: The Federal rules restrict any use of the information to criminally investigate or prosecute any alcohol or drug abuse patient.[facility] the event this information is protected by the Federal Confidentiality of Alcohol and Drug Abuse Patient Records regulations: The Federal rules restrict any use of the information to criminally investigate or prosecute any alcohol or drug abuse patient.[facility] the event this information is protected by the Federal Confidentiality of Alcohol and Drug Abuse Patient Records regulations: The Federal rules restrict any use of the information to criminally investigate or prosecute any alcohol or drug abuse patient.[facility]ima[facility] the event this information is protected by the Federal Confidentiality of Alcohol and Drug Abuse Patient Records regulations: The Federal rules restrict any use of the information to criminally investigate or prosecute any alcohol or drug abuse patient.[facility] the event this information is protected by the Federal Confidentiality of Alcohol and Drug Abuse Patient Records regulations: The Federal rules restrict any use of the information to criminally investigate or prosecute any alcohol or drug abuse patient.[facility] the event this information is protected by the Federal Confidentiality of Alcohol and Drug Abuse Patient Records regulations: The Federal rules restrict any use of the information to criminally investigate or prosecute any alcohol or drug abuse patient.[facility]imaIn the event this information is protected by the Federal Confidentiality of Alcohol and Drug Abuse Patient Records regulations: The Federal rules restrict any use of the information to criminally investigate or prosecute any alcohol or drug abuse patient.[facility]imaIn the event this information is protected by the Federal Confidentiality of Alcohol and Drug Abuse Patient Records regulations: The Federal rules restrict any use of the information to criminally investigate or prosecute any alcohol or drug abuse patient.[facility]imaIn the event this information is protected by the Federal Confidentiality of Alcohol and Drug Abuse Patient Records regulations: The Federal rules restrict any use of the information to criminally investigate or prosecute any alcohol or drug abuse patient.[facility]imaIn the event this information is protected by the Federal Confidentiality of Alcohol and Drug Abuse Patient Records regulations: The Federal rules restrict any use of the information to criminally investigate or prosecute any alcohol or drug abuse patient.[facility]imaIn the event this information is protected by the Federal Confidentiality of Alcohol and Drug Abuse Patient Records regulations: The Federal rules restrict any use of the information to criminally investigate or prosecute any alcohol or drug abuse patient.[facility]In the event this information is protected by the Federal Confidentiality of Alcohol and Drug Abuse Patient Records regulations: The Federal rules restrict any use of the information to criminally investigate or prosecute any alcohol or drug abuse patient.[facility]imaIn the event this information is protected by the Federal Confidentiality of Alcohol and Drug Abuse Patient Records regulations: The Federal rules restrict any use of the information to criminally investigate or prosecute any alcohol or drug abuse patient.[facility]ima[facility] the event this information is protected by the Federal Confidentiality of Alcohol and Drug Abuse Patient Records regulations: The Federal rules restrict any use of the information to criminally investigate or prosecute any alcohol or drug abuse patient.[facility] Reason for Visit (unrecogniz ed section and content) Reason Comments Received Outside Medical Records Reason Comments CARD New Patient Consult Reason Comments Back Pain Patient presents tod for back pain. She has history of surgery for scoliosis 2004 and 2005. Reason Comments Scans Reason Comments Behavioral Health/Social Work Reason Comments Well Woman Specialty Diagnoses / Procedures Referred By Edy t Referred To Contact Diagnoses Counseling for control regarding intrauterine device (IUD) Procedures CONSULT TO RECREATIONAL VEHICLE REPAIRER OFFICE/OUTPATIENT NEW [facility] MDM 60-74 MINUTES Ashwini Matute PA-C [address] [place] [address] Referral ID Status Reason Start Date Expiration Date Visits Requested Visits Authorized [id number] Pending Review PCP Requested Referral Auto-Generate d Referral 01/11/2023 01/11/2024 1 1 Reason Comments Needs Work Note Called off today due to Neuropathy. Pt is in a lot of pain. Episodes every 30 minutes. Specialty Diagnoses / Procedures Referred By Contac t Referred To Contact [facility] Diagnoses Palpitations Procedures ECHO ECHO TTHRC R-T 2D W/WOM-MODE COMPL SPEC&COLR D Jessee Fried MD [address] [place] [address] [address] [place] [address] Referral ID Status Reason Start Date Expiration Date Visits Requested Visits Authorized [id number] Authorized Auto-Generat ed Referral 11/25/2022 09/04/2023 1 [...] Request 06/15/2023 Reason Comments Other [id number] Reason Comments Appointment New patient call Reason Comments Medication Update New Patient Evaluation Reason Comments Appointment Specialty Diagnoses / Procedures Referred By Contac t Referred To Contact PAIN MANAGEMENT Diagnoses Pain disorder with related psychological factors Procedures PSYCHIATRIC DIAGNOSTIC EVALUATION PSYCHOLOGICAL TST EVAL SVC PHYS/QHP FIRST HOUR PSYL/NRPSYCL TST PHYS/QHP 2+ TST 1ST 30 MIN Dileep Jim MD [address] [place] [address] Huma Crowder, PhD [address] [place] [address] Referral ID Status Reason Start Date Expiration Date V isits Requested Visits Authorized [id number] Authorized 09/05/2024 09/04/2025 99 99 Reason Comments PreOp Call [facility] Care Teams (unrecognized sec tion and content) Technical Sales Representative Relationship Specialty Start Date End Date ConchitaAshwini abad PA-C [address] [place] [address] PCP - General Physician Appeals Manager 01/11/23 Technical Sales Representative Relationship Specialty Start Date End Date ConchitaAshwini abad PA-C [address] [place] [address] PCP - General Physician Appeals Manager 01/11/23 Technical Sales Representative Relationship Specialty Start Date End Date ConchitaAshwini abad PA-C [address] [place] [address] PCP - General Physician Appeals Manager 01/11/23 Technical Sales Representative Relationship Specialty Start Date End Date ConchitaAshwini abad PA-C [address] [place] [address] PCP - General Physician Appeals Manager 01/11/23 Technical Sales Representative Relationship Specialty Start Date End Date ConchitaAshwini abad PA-C [address] [place] [address] PCP - General Physician Appeals Manager 01/11/23 Technical Sales Representative Relationship Specialty Start Date End Date Ashwini Matute PA-C [address] [place] [address] PCP - General Physician Appeals Manager 01/11/23 Technical Sales Representative Relationship Specialty Start Date End Date AmyAshwini PA-C [address] [facility] [place] [address] PCP - General Physician Appeals Manager 01/11/23 Technical Sales Representative Relationship Specialty Start Date End Date Amy Ashwini Lim PA-C [address] [facility] [place] [address] PCP - General Physician Appeals Manager 01/11/23 Technical Sales Representative Relationship Specialty Start Date End Date AmyAshwini PA-C [address] [place] [address], [place] [address] PCP - General Physician Appeals Manager 01/11/23 Technical Sales Representative Relationship Specialty Start Date End Date Amy Ashwini Lim PA-C [address] [place] [address], [place] [address] PCP - General Physician Appeals Manager 01/11/23 Technical Sales Representative Relationship Specialty Start Date End Date AmyAshwini PA-C [address] [place] [address], [place] [address] PCP - General Physician Appeals Manager 01/11/23 Technical Sales Representative Relationship Specialty Start Date End Date AmyAshwini PA-C [address] [place] [address], [place] [address] PCP - General Physician Appeals Manager 01/11/23 Technical Sales Representative Relationship Specialty Start Date End Date AmyAshwini PA-C [address] [place] [address], [place] [address] PCP - General Physician Appeals Manager 01/11/23 Technical Sales Representative Relationship Specialty Start Date End Date AmyAshwini PA-C [address] [facility] [place] [address] PCP - General Physician Appeals Manager 01/11/23 Technical Sales Representative Relationship Specialty Start Date End Date AmyAshwini PA-C [address] [place] [address], [place] [address] PCP - General Physician Appeals Manager 01/11/23 Technical Sales Representative Relationship Specialty Start Date End Date AmyAshwini PA-C [address] [place] [address], [place] [address] PCP - General Physician Appeals Manager 01/11/23 Technical Sales Representative Relationship Specialty Start Date End Date AmyAshwini PA-C [address] [place] [address], [place] [address] PCP - General Physician Appeals Manager 01/11/23 Technical Sales Representative Relationship Specialty Start Date End Date AmyAshwini PA-C [address] [place] [address], [place] [address] PCP - General Physician Appeals Manager 01/11/23 Technical Sales Representative Relationship Specialty Start Date End Date AmyAshwini PA-C [address] [place] [address], [place] [address] PCP - General Physician Appeals Manager 01/11/23 Technical Sales Representative Relationship Specialty Start Date End Date AmyAshwini PA-C [address] [facility] [place] [address] PCP - General Physician Appeals Manager 01/11/23 Technical Sales Representative Relationship Specialty Start Date End Date Ashwini Matute PA-C [address] [facility] [place] [address] PCP - General Physician Appeals Manager 01/11/23 Technical Sales Representative Relationship Specialty Start Date End Date ConchitaAshwini abad PA-C [address] [facility] [place] [address] PCP - General Physician Appeals Manager 01/11/23 Technical Sales Representative Relationship Specialty Start Date End Date RomainAshwini abad PA-C [address] [facility] [place] [address] PCP - General Physician Appeals Manager 01/11/23 Technical Sales Representative Relationship Specialty Start Date End Date Ashwini Matute PA-C [address] [place] [address] PCP - General 02/10/23 Technical Sales Representative Relationship Specialty Start Date End Date Ashwini Matute PA-C [address] [place] [address], [place] [address] PCP - General 02/10/23 Team Status: Active Member Role Status Dates PHYSICIAN NO FAMILY Primary Care Provider Active Team Status: Inactive Member Role Status Dates PHYSICIAN NO FAMILY Primary Care Provider Active Lorie Townsend [employer] AND BEVERAGE ANALYST-C Attending Provider Active Technical Sales Representative Relationship Specialty Start Date End Date Ashwini Matute PA-C [address] [facility] [place] [address] PCP - General Physician Appeals Manager 01/11/23 Technical Sales Representative Relationship Specialty Start Date End Date Ashwini Matute PA-C [address] [facility] [place] [address] PCP - General Physician Appeals Manager 01/11/23 Chucky Hernandez MD [address] [place] [address] 1 [place] [address] Referring Pain Management 05/16/24 Technical Sales Representative Relationship Specialty Start Date End Date Ashwiin Matute PA-C [address] [facility] [place] [address] PCP - General Physician Appeals Manager 01/11/23 Chucky Hernandez MD [address] [place] [address] 1 [place] [address] Referring Pain Management 05/16/24 Maine Reno PA-C [address] [place] [id number] [employer]her Internal Medicine 08/12/24 Technical Sales Representative Relationship Specialty Start Date End Date Ashwini Matute PA-C [address] [facility] [place] [address] PCP - General Physician Appeals Manager 01/11/23 Chucky Hernandez MD [address] [place] [address] 1 [place] [address] Referring Pain Management 05/16/24 Maine Reno PA-C [facility] [place] [address] Production Weigher Internal Medicine 08/12/24 Technical Sales Representative Relationship Specialty Start Date End Date Ashwini Matute PA-C [address] [place] [address] PCP - General Physician Appeals Manager 01/11/23 Chucky Hernandez MD [address] [place], [place] [id number] Referring Pain Management 05/16/24 Maine Reno PA-C [address] [place] [phone] Production [employer]her Internal Medicine 08/12/24 Technical Sales Representative Relationship Specialty Start Date End Date Savannah Roger CNP [address] [place] [address] PCP - General Family Medicine 10/18/24 Chucky Hernandez MD [address] [place] [address] [address] [place] [address] Referring Pain Management 05/16/24 Technical Sales Representative Relationship Specialty Start Date End Date Savannah Roger CNP [address] [place] [address] PCP - General Family Medicine 10/18/24 Chucky Hernandez MD [address] [place] [address] [address] [place] [address] Referring Pain Management 05/16/24 Technical Sales Representative Relationship Specialty Start Date End Date Savannah Roger CNP [address] [place] [address] PCP - General Family Medicine 10/18/24 Chucky Hernandez MD [address] [place] [address] [address] [place] [address] Referring Pain Management 05/16/24 Technical Sales Representative Relationship Specialty Start Date End Date Savannah Roger CNP [address] [place] [address] PCP - General Family Medicine 10/18/24 Chucky Hernandez MD [address] [place] [address] 1 [place] [address] Referring Pain Management 05/16/24 Goals (unrecognized section and content) Goals may [...] BE BASED ON THE PRIMARY CLINICAL RECORDS. [email or web address] [facility]. provides no warranty or guarantee of the accuracy or completeness of information in this document.
== END 2025-05-09 14:57 | disposition home or self-care (01) ==
LOC: PM 14:56
PROVIDERS: Visit Provider Anesthesiology
DX: M96.1 Postlaminectomy syndrome, not elsewhere classified (principal)
CPT/HCPCS: G0463